=== PATIENT | female | born 1940 | race Caucasian/White ===

== ENCOUNTER 2016-05-14 09:33 | Observation (INO) | payer OTHER, MEDICARE ==
[~2016-05-14] VITALS: Ht 190.5 cm; Wt 96.6 kg
[~2016-05-14 09:33] MED LIST: ACET-1256 PO; ALBU1AER9 INH; CLC100X PO; DICL-201 PO; MAGN250T22 PO; MELA1TAB3 PO; MULT-506 PO; POLY99.02 OP; VITA400C15 PO
[2016-05-14] MEDS ORDERED: HYDROmorphone INJ 1 MG/ML SYR IV STA ×2 (09:50→13:04)
[2016-05-14] MEDS ORDERED: LORAZEPAM 2 MG/ML 1 ML VIAL IV STA (09:50)
[2016-05-14] MEDS ORDERED: SODIUM CHLORIDE 0.9% 1000ML 1,000 ML IV STA ×2 (09:50→12:15)
--- NOTE | 2016-05-14 09:52 | EMERGENCY ROOM VISIT NOTE ---
History Report prepared by Mary: Viktoria Phillip Under the Supervision of: Dr. Prashanth Sharma M.D. First contact with patient: 09:45 Chief Complaint: ABDOMINAL PAIN Stated Complaint: DIARRHEA, VOMITING, ABD. PAIN Nursing Triage Summary: Triage note: pt reports nausea, vomitting, diarrhea, mid abd pain since early this am. History of Present Illness The patient is a 75 year old female who presents to the Emergency Room with complaints of persistent diffuse abdominal pain that began this morning. She currently rates her discomfort as a 10/10 in severity. The patient states that she has chronic abdominal pain that is typically constipation. She states that today she has been experiencing, nausea, vomiting, and diarrhea, with the abdominal pain. The patient states that yesterday she went to bed feeling nauseous. She states that her illness today feels different than her typical GI problems. The patient notes a history of an appendectomy, hysterectomy, and a cholecystectomy. She states that she took Zofran for her symptoms twice, but states it only provided temporary relief. The patient additionally notes chills , but denies any fever, increased leg swelling, or back pain. Source of History: patient Onset: this morning Position: abdomen (diffuse) Symptom Intensity: 10/10 Timing: other (persistent) Associated Symptoms: + chills, + diarrhea, + nausea, + vomiting, No back pain, No fevers Review of Systems Full ROS is limited secondary to the patient actively vomiting and not willing to answer questions. 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 (11) Osteoporosis (12) Pancreatitis (13) Peripheral neuropathy (14) Sciatica (15) UNSPEC CONSTIPATION Surgical Problems: (1) History of appendectomy (2) History of cholecystectomy (3) History of colonoscopy Family History Diabetes mellitus FHx: cancer FHx: heart disease FHx: lung disease Hypertension Kidney disease Social History Smoking Status: Never Smoker Alcohol Use: occasionally Marital Status: Housing Status: lives with family Occupation Status: retired Current/Historical Medications Scheduled Albuterol Hfa (Ventolin Hfa), 2-4 PUFFS INH Q6H Artificial Tear Solution (Artificial Tears), 1 DROPS OP QID Ascorbic Acid (Ascorbic Acid), 1,000 MG PO ON HOLD Astaxanthin (Astaxanthin), 4 MG PO ON HOLD Bisacodyl (Bisacodyl), 2 TAB PO UD Coenzyme Q10 (Ubidecarenone) (Co Q-10), 200 MG PO ON HOLD Docusate Sodium (Docusate Sodium), 1 CAP PO BID Famotidine (Pepcid), 20 MG PO HS L-Methylfolate W/ Algae-Vitami (Metanx), 3 MG PO ON HOLD Magnesium Oxide (Magnesium), 500 MG PO ON HOLD Melatonin-Pyridoxine (Melatonin), 1-3 MG PO HS Milk Thistle (Silybum Marianum (Milk Thistle), 200 MG PO ON HOLD Multivitamin (Multivitamin), 1 TAB PO ON HOLD [place]-3 Fatty Acids ([place] 3), 1,000 MG PO ON HOLD Selenium-Yeast (Selenium), 3 MG PO ON HOLD Soybean Lecithin (Bulk) (Lecithin), 1 GM PO ON HOLD Tocopheryl Acet,Dl-Alpha (Vitamin E/Dl-Alpha), 1 CAP PO DAILY Scheduled PRN Acetaminophen (Tylenol), 1,000 MG PO HS PRN for Pain Alum & Mag Hydrox-Simethicone (Mylanta), 1 DOSE PO UD PRN for Indigestion Aspirin (Aspirin Ec), 1-2 TAB PO Q6 PRN for Pain Leddrxp-Nfiwacddtotib-Hdenizxz (Excedrin Extra Strength), 1-2 TABS PO UD PRN for Pain Diclofenac (Voltaren), 75 MG PO BID PRN for Pain Furosemide (Furosemide), 20 MG PO for swelling of legs Lidocaine Hcl (Mouth-Throat) (Lidocaine Viscous), 2 % MT QID PRN for SORE THROAT Ondansetron Hcl (Zofran), 4 MG PO Q6 PRN for Nausea Dzrrdnbzpsomb-Cedkwvkcbb-Pwgdd (Nyquil Severe Cold/Flu 5-6.25-10-325 mg/15Ml), 1 DOSE PO HS PRN for COLD SYMPTOMS Polyethylene Glycol 3350 (Miralax), 17 GM PO UD PRN for Constipation Prune Juice (Prune Juice ), 4 OZ PO for Constipation Miscellaneous Medications Alpha-Lipoic Acid (Thioctic Ac (Alpha Lipoic Acid), 600 MG PO B-Complex W/Biotin & Folic Aci (Vitamin B50 Complex Tr), 1 TAB PO Cholecalciferol (Vitamin D3), 2,000 UNITS PO Goldenseal (Hydrastis [place] ([place] Seal), Unknown Dose PO Menaquinone-7 (Vitamin K2), 200 MCG PO Simethicone (Simethicone), 1 TAB PO Vitamin A-Beta Carotene (Vitamin A), 8,000 MG PO [zinc and copper], 1 TAB PO Allergies Coded Allergies: Statins (Verified Allergy, Intermediate, MUSCLE WEAKNESS, 05/14/16) Tramadol (Verified Allergy, Intermediate, SOB, CHEST PAIN, 05/14/16) HAS TOLERATED MORPHINE Ibandronic Acid (Verified Allergy, Mild, GERD, 05/14/16) Carbamazepine (Verified Allergy, Unknown, pancreatitis, 05/14/16) Proton Pump Inhibitors (Verified Allergy, Unknown, UNKNOWN, 05/14/16) Morphine (Verified Adverse Reaction, Intermediate, GI SYMPTOMS, 05/14/16) PER PATIENT, DRIP OKAY - "NOT PUSHED" Epinephrine (Verified Adverse Reaction, Unknown, DIZZINESS, 05/14/16) Physical Exam Vital Signs Date Time Temp Pulse Resp B/P Pulse Ox O2 Delivery O2 Flow Rate FiO2 05/14/16 14:15 77 18 101/61 93 Room Air 05/14/16 12:23 78 18 118/67 98 Room Air 05/14/16 10:46 76 18 129/73 97 Room Air 05/14/16 09:42 36.5 75 18 90/60 95 Room Air Physical Exam GENERAL: Patient is moderate to severe distress, nauseous appearing, dry heaving. HEENT: No acute trauma, normocephalic atraumatic, mucous membranes moist, no nasal congestion, no scleral icterus. NECK: No stridor, no adenopathy, no meningismus, trachea is midline. LUNGS: No dyspnea. Clear to auscultation and equal bilaterally. No wheeze, no rhonchi. HEART: Regular rate and rhythm. No murmurs, rubs, gallops appreciated. ABDOMEN: Hyperactive bowel sounds, diffuse tenderness to palpation. Mildly distended abdomen. No masses, no peritonitis. BACK: No midline tenderness, no CVA tenderness EXTREMITIES: Normal motion all extremities, no cyanosis, no edema. NEUROLOGIC: Alert and oriented, no acute motor or sensory deficits, no focal weakness, cranial nerves grossly intact. SKIN: No rash, no jaundice, no diaphoresis. Medical Decision & Procedures ER Provider Diagnostic Interpretation: X ray results and stated below per my interpretation and radiologist interpretation. Other radiology results and stated below per my review and radiologist interpretation: CT SCAN OF THE ABDOMEN AND PELVIS WITH IV CONTRAST CLINICAL HISTORY: Generalized/diffuse abdominal pain. COMPARISON STUDY: Abdominal CT dated 08/29/2012. TECHNIQUE: Following the IV administration of 92 cc of Optiray 320, CT scan of the abdomen and pelvis is performed from the lung bases to the proximal femora. Images are reviewed in the axial, sagittal, and coronal planes. IV contrast was administered without complication. Automated dose control exposure was utilized. CT DOSE: 601.00 mGy.cm FINDINGS: Lung bases: The heart is top normal in size and without pericardial effusion. There are dependent airspace opacities. This is not well assessed due to significant motion artifact. No pleural effusion is identified. There is a small hiatal hernia. Liver: The contrast-enhanced liver is normal in size, contour, and attenuation. There is moderate intrahepatic biliary ductal dilatation, similar to the 2013 examination. The hepatic veins and portal veins are patent. Gallbladder: Surgically absent noting clips in the gallbladder fossa. Spleen: Normal in size and attenuation. Pancreas: Unremarkable. Adrenal glands: Unremarkable. Kidneys: The contrast enhanced kidneys demonstrate mild cortical atrophy and are without hydronephrosis. The kidneys enhance symmetrically. Abdominal vasculature: The abdominal aorta is normal in course and caliber noting moderate atherosclerotic calcification. Bowel: There are numerous fluid-filled loops of small bowel. Liquid stool is also seen in the right colon. No bowel wall thickening or perienteric inflammation is seen. There is no bowel obstruction. The appendix is not visualized. Peritoneum: There is no intraperitoneal free air or abdominal ascites. There is a small fat-containing umbilical hernia. Lymphadenopathy: None. Pelvic viscera: The bladder is normal as visualized. The uterus is surgically absent. No adnexal lesion is seen. Skeletal structures: The skeletal structures are osteopenic. Mild lumbosacral spondylosis is observed. No lytic or blastic lesions are seen. IMPRESSION: 1. There are numerous fluid-filled loops of small bowel. Liquid stool is also noted in the colon. Correlate clinically for evidence of a mild nonspecific enterocolitis. No bowel wall thickening or surrounding inflammatory change is identified. 2. Small hiatal hernia. 3. There are dependent airspace opacities. This could represent atelectasis but is not well assessed due to motion artifact. Correlate clinically for evidence of a mild infectious/inflammatory pneumonitis. 4. Additional findings as above. Electronically signed by: Giuseppe Thomas M.D. 05/14/2016 12:00 PM Dictated Date/Time: 05/14/2016 11:54 AM Laboratory Results 05/14/16 10:20 Red Blood Count 4.47, Mean Corpuscular Volume 90.6, Mean Corpuscular Hemoglobin 32.2, Mean Corpuscular Hemoglobin Concent 35.6, Mean Platelet Volume 10.2, Neutrophils (%) (Auto) 86.8, Lymphocytes (%) (Auto) 7.4, Monocytes (%) (Auto) 3.1, Eosinophils (%) (Auto) 2.3, Basophils (%) (Auto) 0.1, Neutrophils # (Auto) 15.94, Lymphocytes # (Auto) 1.35, Monocytes # (Auto) 0.56, Eosinophils # (Auto) 0.42, Basophils # (Auto) 0.02 05/14/16 10:20 Test 05/14/16 10:20 05/14/16 13:30 White Blood Count 18.35 K/uL (4.8-10.8) Red Blood Count 4.47 M/uL (4.2-5.4) Hemoglobin 14.4 g/dL (12.0-16.0) Hematocrit 40.5 % (37-47) Mean Corpuscular Volume 90.6 fL (80-100) Mean Corpuscular Hemoglobin 32.2 pg (25-34) Mean Corpuscular Hemoglobin Concent 35.6 g/dl (32-36) Platelet Count 248 K/uL (130-400) Mean Platelet Volume 10.2 fL (7.4-10.4) Neutrophils (%) (Auto) 86.8 % Lymphocytes (%) (Auto) 7.4 % Monocytes (%) (Auto) 3.1 % Eosinophils (%) (Auto) 2.3 % Basophils (%) (Auto) 0.1 % Neutrophils # (Auto) 15.94 K/uL (1.4-6.5) Lymphocytes # (Auto) 1.35 K/uL (1.2-3.4) Monocytes # (Auto) 0.56 K/uL (0.11-0.59) Eosinophils # (Auto) 0.42 K/uL (0-0.5) Basophils # (Auto) 0.02 K/uL (0-0.2) RDW Standard Deviation 41.3 fL (36.4-46.3) RDW Coefficient of Variation 12.5 % (11.5-14.5) Immature Granulocyte % (Auto) 0.3 % Immature Granulocyte # (Auto) 0.06 K/uL (0.00-0.02) Anion Gap 11.0 mmol/L (3-11) Est Creatinine Clear Calc Drug Dose 62.3 ml/min Estimated GFR () 64.3 Estimated GFR (Non- 55.5 BUN/Creatinine Ratio 23.3 (10-20) Calcium Level 8.8 mg/dl (8.5-10.1) Total Bilirubin 0.5 mg/dl (0.2-1) Direct Bilirubin 0.1 mg/dl (0-0.2) Aspartate Amino Transf (AST/SGOT) 87 U/L (15-37) Alanine Aminotransferase (ALT/SGPT) 75 U/L (12-78) Alkaline Phosphatase 67 U/L (45-117) Total Protein 7.8 gm/dl (6.4-8.2) Albumin 4.1 gm/dl (3.4-5.0) Lipase 334 U/L (73-393) Urine Color YELLOW Urine Appearance CLEAR (CLEAR) Urine pH 5.0 (4.5-7.5) Urine Specific [place] > 1.045 (1.000-1.030) Urine Protein NEG (NEG) Urine Glucose (UA) NEG (NEG) Urine Ketones NEG (NEG) Urine Occult Blood NEG (NEG) Urine Nitrite NEG (NEG) Urine Bilirubin NEG (NEG) Urine Urobilinogen NEG (NEG) Urine Leukocyte Esterase NEG (NEG) Urine WBC (Auto) 1-5 /hpf (0-5) Urine RBC (Auto) 0-4 /hpf (0-4) Urine Hyaline Casts (Auto) 1-5 /lpf (0-5) Urine Epithelial Cells (Auto) 10-20 /lpf (0-5) Urine Bacteria (Auto) NEG (NEG) Laboratory results as reviewed by me. Medications Administered Medications (Trade) Dose Ordered Sig/Azucena Route Start Time Stop Time Status Last Admin Dose Admin Hydromorphone HCl (Dilaudid Inj) 1 mg NOW STAT IV 05/14/16 09:50 05/14/16 09:52 DC 05/14/16 10:41 1 MG Lorazepam 1 mg 1 mg NOW STAT IV 05/14/16 09:50 05/14/16 09:53 DC 05/14/16 10:43 1 MG Sodium Chloride 1,000 ml @ 999 mls/hr Q1H1M STAT IV 05/14/16 09:50 05/14/16 10:50 DC 05/14/16 10:39 999 MLS/HR Sodium Chloride (Nss 1000ml) 1,000 ml @ 999 mls/hr Q1H1M STAT IV 05/14/16 12:15 05/14/16 13:15 DC 05/14/16 12:26 999 MLS/HR Hydromorphone HCl (Dilaudid Inj) 1 mg NOW STAT IV 05/14/16 13:04 05/14/16 13:07 DC 05/14/16 13:24 1 MG ED Course 0947: The patient was evaluated in room B5. A complete history and physical exam was performed. 0950: Ordered Sodium Chloride 1000 ml @ 999 mls/hr IV, Ativan Inj 1 mg IV, Dilaudid Inj 1 mg IV. 1031: I reevaluated the patient and she states that her symptoms have continued to worsen and she notes that she has not received any of her medications yet. Her IV is in place. 1053: I reevaluated the patient and her blood pressure has decreased after 1 liter of fluid. 1125: I reevaluated the patient and she is sleeping in no distress. She states that she is still having abdominal pain when she is awoken and then she falls back asleep. 1215: I reevaluated the patient and she is feeling better right now, but doesn' t want to go home just yet, and does not want to be evaluated for further treatment. She asked that I come back and evaluated her later. She requested more fluids. Ordered Sodium Chloride 1000 ml @ 999 mls/hr IV. 1304: Ordered Dilaudid Inj 1 mg IV. 1305: I reevaluate the patient and she states that her pain is returning. I discussed all the exam findings and I discussed the treatment plan. She verbalized complete understanding and agreement. She will be evaluated for further treatment. 1312: I discussed the patient's case with Krishan Zhao. He is going to evaluate the patient for further treatment. Medical Decision Differential: Diverticulitis, PUD/Gastritis, UTI, Pyelonephritis, Renal Colic, Bowel Obstruction, Aortic Pathology, Acute Coronary Syndrome, amongst other pathologies entertained. 75 yr old female arrives with complaint of diffuse abdominal pain, vomiting, diarrhea and generalized weakness. She is very much uncomfortable and in quite some distress, to point where she was felt to require CT given exam findings. Furthermore WBC is elevated as well though she does not appear septic and may just be due to dehydration at this time. Given ativan/dilaudid and fluids. CT unremarkable other than enteritis findings. Initially patient was hoping to go home but pain returned and she is just too weak to even get out of bed. She will be brought in for further monitoring/evaluation. Consults Time Called: 1305 Consulting Physician: Krishan Zhao Returned Call: 1312 discussed the patient's case with Krishan Zhao. He is going to evaluate the patient for further treatment. Impression Primary Impression: Intractable abdominal pain Additional Impressions: Leukocytosis Weakness Scribe Attestation The scribe's documentation has been prepared under my direction and personally reviewed by me in its entirety. I confirm that the note above accurately reflects all work, treatment, procedures, and medical decision making performed by me. Departure Information Dispostion Being Evaluated By Hospitalist Referrals Yohannes Morelos M.D. ([facility]) (PCP) Problem Qualifiers Additional Impressions: Leukocytosis Leukocytosis type: unspecified Qualified Codes: D72.829 - Elevated white blood cell count, unspecified
[2016-05-14] MEDS ORDERED: OPTIRAY 320 IV PRN (10:00)
[2016-05-14 10:31] LABS: HEMATOCRIT 40.5 % (37-47); MEAN CELL VOLUME 90.6 fL (80-100); MEAN CORPUSCULAR HEMOGLOBIN 32.2 pg (25-34); MEAN CORPUSCULAR HGB CONC 35.6 g/dl (32-36); MEAN PLATELET VOLUME 10.2 fL (7.4-10.4); PLATELET COUNT 248 K/uL (130-400); RED BLOOD COUNT 4.47 M/uL (4.2-5.4); WHITE BLOOD COUNT 18.35 K/uL (4.8-10.8)
[2016-05-14] MEDS ORDERED: VTME400 PO (10:31)
[2016-05-14] MEDS ORDERED: DOCU100C31 PO (10:31)
[2016-05-14] MEDS ORDERED: ARTISOL12 OP (10:31)
[2016-05-14] MEDS ORDERED: B-CO1TAB21 PO (10:44)
[2016-05-14] MEDS ORDERED: GOLD500C3 PO (10:44)
[2016-05-14] MEDS ORDERED: BISA1TAB15 PO (10:44)
[2016-05-14] MEDS ORDERED: SIME1CAP28 PO (10:44)
[2016-05-14 10:54] LABS: BUN/CREATININE RATIO 23.3 (10-20); CALCIUM 8.8 mg/dl (8.5-10.1); POTASSIUM 4.1 mmol/L (3.5-5.1)
[2016-05-14 11:13] LABS: BASO % 0.1 %; BASO ABS # 0.02 K/uL (0-0.2); COMPLETE YES; EOS % 2.3 %; IG% 0.3 %; LYMPH % 7.4 %; LYMPH ABS # 1.35 K/uL (1.2-3.4); MONO % 3.1 %; NEUT % 86.8 %
--- NOTE | 2016-05-14 12:02 | DIAGNOSTIC IMAGING REPORT ---
CT SCAN OF THE ABDOMEN AND PELVIS WITH IV CONTRAST CLINICAL HISTORY: Generalized/diffuse abdominal pain. COMPARISON STUDY: Abdominal CT dated 08/29/2012. TECHNIQUE: Following the IV administration of 92 cc of Optiray 320, CT scan of the abdomen and pelvis is performed from the lung bases to the proximal femora. Images are reviewed in the axial, sagittal, and coronal planes. IV contrast was administered without complication. Automated dose control exposure was utilized. CT DOSE: 601.00 mGy.cm FINDINGS: Lung bases: The heart is top normal in size and without pericardial effusion. There are dependent airspace opacities. This is not well assessed due to significant motion artifact. No pleural effusion is identified. There is a small hiatal hernia. Liver: The contrast-enhanced liver is normal in size, contour, and attenuation. There is moderate intrahepatic biliary ductal dilatation, similar to the 2013 examination. The hepatic veins and portal veins are patent. Gallbladder: Surgically absent noting clips in the gallbladder fossa. Spleen: Normal in size and attenuation. Pancreas: Unremarkable. Adrenal glands: Unremarkable. Kidneys: The contrast enhanced kidneys demonstrate mild cortical atrophy and are without hydronephrosis. The kidneys enhance symmetrically. Abdominal vasculature: The abdominal aorta is normal in course and caliber noting moderate atherosclerotic calcification. Bowel: There are numerous fluid-filled loops of small bowel. Liquid stool is also seen in the right colon. No bowel wall thickening or perienteric inflammation is seen. There is no bowel obstruction. The appendix is not visualized. Peritoneum: There is no intraperitoneal free air or abdominal ascites. There is a small fat-containing umbilical hernia. Lymphadenopathy: None. Pelvic viscera: The bladder is normal as visualized. The uterus is surgically absent. No adnexal lesion is seen. Skeletal structures: The skeletal structures are osteopenic. Mild lumbosacral spondylosis is observed. No lytic or blastic lesions are seen. IMPRESSION: 1. There are numerous fluid-filled loops of small bowel. Liquid stool is also noted in the colon. Correlate clinically for evidence of a mild nonspecific enterocolitis. No bowel wall thickening or surrounding inflammatory change is identified. 2. Small hiatal hernia. 3. There are dependent airspace opacities. This could represent atelectasis but is not well assessed due to motion artifact. Correlate clinically for evidence of a mild infectious/inflammatory pneumonitis. 4. Additional findings as above. Electronically signed by: iGuseppe Thomas M.D. 05/14/2016 12:00 PM Dictated Date/Time: 05/14/2016 11:54 AM
[2016-05-14 13:47] LABS: URINE APPEARANCE CLEAR (CLEAR); URINE BILIRUBIN NEG (NEG); URINE COLOR YELLOW; URINE NITRITE NEG (NEG); URINE SPECIFIC GRAVITY > 1.045 (1.000-1.030); UROBILINOGEN NEG (NEG); ZZUR CULT IF INDIC CLEAN CATCH NO
[2016-05-14 14:00] LABS: MANUAL MICROSCOPIC REQUIRED? NO; REVIEW REQ? NO
[2016-05-14] MEDS ORDERED: ALBUTEROL HFA 8 GM INHALER INH PRN (14:45)
[2016-05-14] MEDS ORDERED: MoRPHine SULFATE 4 MG/ML 1 ML CARP\\VIAL IV PRN (14:45)
[2016-05-14] MEDS ORDERED: ASPIRIN 325 MG ECTAB PO PRN (14:45)
[2016-05-14] MEDS ORDERED: DICLOFENAC SOD EC 75 MG TABCR PO PRN (14:45)
[2016-05-14] MEDS ORDERED: IV FLUIDS COMPLETED PRN (15:00)
--- NOTE | 2016-05-14 15:04 | History and Physical ---
History & Physical Date & Time of Service: May 14, 2016 at 14:49 Chief Complaint: Diarrhea, Vomiting, Abd. Pain Primary Care Physician: Yohannes Morelos M.D.(GIANCARLO) History of Present Illness Source: patient This is a 75 y/o female with PMHx of gastroparesis, GERD and other problems as outlined below who presents to the ED c/o persistent N/V x 24 hrs. Pt reports that last night she heated up a frozen meal for dinner. Shortly after dinner she became nauseas. She estimates she has had >10 episodes of vomiting since early this morning. She tried taking 2 Zofran which gave her temporary relief. Sxs are assoc with 10/10 diffuse abdominal pain and diarrhea. Patient's ate the same dinner last night and did not get sick. Pt reports a history of GI problems with gastroparesis and reflux. She follows with [facility]. Pt denies fever/chills, diaphoresis, chest pain, palpitations, SOB, hematemesis, hematochezia, bladder issues, LE edema, calf pain, lightheadedness/dizziness. In the ED, pt is hypotensive on arrival. She is afebrile with leukocytosis>18k. CT abd/pelvis + enteritis. Pt received IVF, Dilaudid and Zofran in the ED. She will be admitted for further evaluation and treatment. Past Medical/Surgical History Medical Problems: (1) AORTIC ATHEROSCLEROSIS Status: Chronic (2) ASTHMA, UNSPECIFIED Status: Chronic (3) Gastroesophageal reflux disease Status: Chronic (4) Gastroparesis Status: Chronic (5) Idiopathic peripheral neuropathy Status: Chronic (6) MALIGN NEOPL OVARY Status: Resolved (7) Malignant neoplasm of upper-outer quadrant of female breast Status: Resolved (8) Osteoporosis Status: Chronic (9) Pancreatitis Status: Chronic (10) Peripheral neuropathy Status: Chronic (11) Sciatica Status: Chronic (12) UNSPEC CONSTIPATION Status: Chronic Surgical Problems: (1) History of appendectomy Status: Resolved (2) History of cholecystectomy Status: Resolved (3) History of colonoscopy Status: Resolved Family History Diabetes mellitus FHx: cancer FHx: heart disease FHx: lung disease Hypertension Kidney disease Social History Smoking Status: Never Smoker Alcohol Use: none Drug Use: none Marital Status: Housing status: lives with family Occupational Status: retired Immunizations History of Influenza Vaccine: Yes Influenza Vaccine Date: Dec 18, 2011 History of Tetanus Vaccine?: No History of Pneumococcal: Yes Pneumococcal Date: Feb 16, 2009 History of Hepatitis B Vaccine: Unknown Multi-Drug Resistant Organisms History of MDRO: No Allergies Coded Allergies: Statins (Verified Allergy, Intermediate, MUSCLE WEAKNESS, 05/14/16) Tramadol (Verified Allergy, Intermediate, SOB, CHEST PAIN, 05/14/16) HAS TOLERATED MORPHINE Ibandronic Acid (Verified Allergy, Mild, GERD, 05/14/16) Carbamazepine (Verified Allergy, Unknown, pancreatitis, 05/14/16) Proton Pump Inhibitors (Verified Allergy, Unknown, UNKNOWN, 05/14/16) Morphine (Verified Adverse Reaction, Intermediate, GI SYMPTOMS, 05/14/16) PER PATIENT, DRIP MARTIN - "NOT PUSHED" Epinephrine (Verified Adverse Reaction, Unknown, DIZZINESS, 05/14/16) Home Medications Scheduled Albuterol Hfa (Ventolin Hfa), 2-4 PUFFS INH Q6H Artificial Tear Solution (Artificial Tears), 1 DROPS OP QID Ascorbic Acid (Ascorbic Acid), 1,000 MG PO ON HOLD Astaxanthin (Astaxanthin), 4 MG PO ON HOLD Bisacodyl (Bisacodyl), 2 TAB PO UD Coenzyme Q10 (Ubidecarenone) (Co Q-10), 200 MG PO ON HOLD Docusate Sodium (Docusate Sodium), 1 CAP PO BID Famotidine (Pepcid), 20 MG PO HS L-Methylfolate W/ Algae-Vitami (Metanx), 3 MG PO ON HOLD Levothyroxine Sodium (Synthroid), 1 TAB PO DAILY Magnesium Oxide (Magnesium), 500 MG PO ON HOLD Melatonin-Pyridoxine (Melatonin), 1-3 MG PO HS Milk Thistle (Silybum Marianum (Milk Thistle), 200 MG PO ON HOLD Multivitamin (Multivitamin), 1 TAB PO ON HOLD Hackberry-3 Fatty Acids (Hackberry 3), 1,000 MG PO ON HOLD Selenium-Yeast (Selenium), 3 MG PO ON HOLD Soybean Lecithin (Bulk) (Lecithin), 1 GM PO ON HOLD Tocopheryl Acet,Dl-Alpha (Vitamin E/Dl-Alpha), 1 CAP PO DAILY Scheduled PRN Acetaminophen (Tylenol), 1,000 MG PO HS PRN for Pain Alum & Mag Hydrox-Simethicone (Mylanta), 1 DOSE PO UD PRN for Indigestion Aspirin (Aspirin Ec), 1-2 TAB PO Q6 PRN for Pain Wdldrlf-Otdfcqbcngpnc-Zfgrqjjy (Excedrin Extra Strength), 1-2 TABS PO UD PRN for Pain Furosemide (Furosemide), 20 MG PO for swelling of legs Lidocaine Hcl (Mouth-Throat) (Lidocaine Viscous), 2 % MT QID PRN for SORE THROAT Ondansetron Hcl (Zofran), 4 MG PO Q6 PRN for Nausea Eguxtwenflgqk-Zhdhjaxzib-Zracn (Nyquil Severe Cold/Flu 5-6.25-10-325 mg/15Ml), 1 DOSE PO HS PRN for COLD SYMPTOMS Polyethylene Glycol 3350 (Miralax), 17 GM PO UD PRN for Constipation Prune Juice (Prune Juice ), 4 OZ PO for Constipation Miscellaneous Medications Alpha-Lipoic Acid (Thioctic Ac (Alpha Lipoic Acid), 600 MG PO B-Complex W/Biotin & Folic Aci (Vitamin B50 Complex Tr), 1 TAB PO Cholecalciferol (Vitamin D3), 2,000 UNITS PO Goldenseal (Hydrastis Canadens (Penaloza Seal), Unknown Dose PO Menaquinone-7 (Vitamin K2), 200 MCG PO Simethicone (Simethicone), 1 TAB PO Vitamin A-Beta Carotene (Vitamin A), 8,000 MG PO [zinc and copper], 1 TAB PO Review of Systems Constitutional: + fatigue, + weakness, No chills, No fever, No sweats Eyes: No worsening of vision ENT: No hearing loss Respiratory: No cough, No shortness of breath Cardiovascular: No chest pain, No claudication, No edema Abdomen: + diarrhea, + nausea, + pain, + vomiting, No GI bleeding, No constipation Musculoskeletal: No calf pain, No swelling Genitourinary - Female: No dysuria Neurologic: No weakness Psychiatric: No depression symptoms Endocrine: + fatigue Hematologic / Lymphatic: No abnormal bleeding/bruising Integumentary: No new/changing skin lesions Physical Exam Vital Signs Date Time Temp Pulse Resp B/P Pulse Ox O2 Delivery O2 Flow Rate FiO2 05/14/16 14:15 77 18 101/61 93 Room Air 05/14/16 12:23 78 18 118/67 98 Room Air 05/14/16 10:46 76 18 129/73 97 Room Air 05/14/16 09:42 36.5 75 18 90/60 95 Room Air General Appearance: WD/WN, no apparent distress, + pertinent finding (Pt is laying in bed with at bedside) Head: normocephalic, atraumatic Eyes: normal inspection ENT: hearing grossly normal Neck: supple Respiratory/Chest: chest non-tender, lungs clear, normal breath sounds, no respiratory distress Cardiovascular: regular rate, rhythm, no edema, no murmur Abdomen/GI: normal bowel sounds, soft, + tenderness (mild diffuse) Back: normal inspection Extremities/Musculoskelatal: normal inspection, no calf tenderness, no pedal edema Neurologic/Psych: alert, normal mood/affect, oriented x 3 Skin: warm/dry, + pallor Diagnostics Laboratory Results Results Past 24 Hours Test 05/14/16 10:20 05/14/16 13:30 Range/Units White Blood Count 18.35 4.8-10.8 K/uL Red Blood Count 4.47 4.2-5.4 M/uL Hemoglobin 14.4 12.0-16.0 g/dL Hematocrit 40.5 37-47 % Mean Corpuscular Volume 90.6 80-100 fL Mean Corpuscular Hemoglobin 32.2 25-34 pg Mean Corpuscular Hemoglobin Concent 35.6 32-36 g/dl Platelet Count 248 130-400 K/uL Mean Platelet Volume 10.2 7.4-10.4 fL Neutrophils (%) (Auto) 86.8 % Lymphocytes (%) (Auto) 7.4 % Monocytes (%) (Auto) 3.1 % Eosinophils (%) (Auto) 2.3 % Basophils (%) (Auto) 0.1 % Neutrophils # (Auto) 15.94 1.4-6.5 K/uL Lymphocytes # (Auto) 1.35 1.2-3.4 K/uL Monocytes # (Auto) 0.56 0.11-0.59 K/uL Eosinophils # (Auto) 0.42 0-0.5 K/uL Basophils # (Auto) 0.02 0-0.2 K/uL RDW Standard Deviation 41.3 36.4-46.3 fL RDW Coefficient of Variation 12.5 11.5-14.5 % Immature Granulocyte % (Auto) 0.3 % Immature Granulocyte # (Auto) 0.06 0.00-0.02 K/uL Sodium Level 142 136-145 mmol/L Potassium Level 4.1 3.5-5.1 mmol/L Chloride Level 108 98-107 mmol/L Carbon Dioxide Level 23 21-32 mmol/L Anion Gap 11.0 3-11 mmol/L Blood Urea Nitrogen 23 7-18 mg/dl Creatinine 1.00 0.60-1.20 mg/dl Est Creatinine Clear Calc Drug Dose 62.3 ml/min Estimated GFR () 64.3 Estimated GFR (Non- 55.5 BUN/Creatinine Ratio 23.3 10-20 Random Glucose 160 70-99 mg/dl Calcium Level 8.8 8.5-10.1 mg/dl Total Bilirubin 0.5 0.2-1 mg/dl Direct Bilirubin 0.1 0-0.2 mg/dl Aspartate Amino Transf (AST/SGOT) 87 15-37 U/L Alanine Aminotransferase (ALT/SGPT) 75 12-78 U/L Alkaline Phosphatase 67 45-117 U/L Total Protein 7.8 6.4-8.2 gm/dl Albumin 4.1 3.4-5.0 gm/dl Lipase 334 73-393 U/L Urine Color YELLOW Urine Appearance CLEAR CLEAR Urine pH 5.0 4.5-7.5 Urine Specific [place] > 1.045 1.000-1.030 Urine Protein NEG NEG Urine Glucose (UA) NEG NEG Urine Ketones NEG NEG Urine Occult Blood NEG NEG Urine Nitrite NEG NEG Urine Bilirubin NEG NEG Urine Urobilinogen NEG NEG Urine Leukocyte Esterase NEG NEG Urine WBC (Auto) 1-5 0-5 /hpf Urine RBC (Auto) 0-4 0-4 /hpf Urine Hyaline Casts (Auto) 1-5 0-5 /lpf Urine Epithelial Cells (Auto) 10-20 0-5 /lpf Urine Bacteria (Auto) NEG NEG Diagnostic Radiology CT ABD/PELVIS IMPRESSION: 1. There are numerous fluid-filled loops of small bowel. Liquid stool is also noted in the colon. Correlate clinically for evidence of a mild nonspecific enterocolitis. No bowel wall thickening or surrounding inflammatory change is identified. 2. Small hiatal hernia. 3. There are dependent airspace opacities. This could represent atelectasis but is not well assessed due to motion artifact. Correlate clinically for evidence of a mild infectious/inflammatory pneumonitis. 4. Additional findings as above. Impression Assessment and Plan VIRAL GASTROENTERITIS pt presents with abd pain assoc with N/V and diarrhea -admit observation status to med/surg -pt is afebrile with leukocytosis >18k; hypotensive on arrival-improved with fluids -CT abd/pelvis + enteritis -stool cx and c.diff-pending collection -check Mag -start IVF, Zofran and PRN pain medication -clear liquid diet; advance as tolerated -monitor H/O BREAST CA -20+ years ago; s/p chemo DVT PROPHYLAXIS -subq Lovenox CODE STATUS -FULL CODE per discussion with patient DISPO Observation status until further workup is complete. Pt seen in collaboration with Dr. Payne. Please see his addendum for further details. Thanks! Pt will be followed by Dr. Lockett starting tomorrow AM Agree with above h and p.Briefly 75F presents with abdominal pain several episodes of vomiting and diarrhea.Patient says she has issues with constipation and uses stool softeners. Last night after she ate frozen food she became nauseous and several episodes of vomiting and has diarrhea and severe abdominal souza. Afebrile. Symptoms are slightly better now. Denies chest pain or sob. p/e Ge not in distress cvs s1 and s2 heard no murmurs Rs cta b/l no added sounds Abd mild diffuse discomfort Staff Attorney non focal ext no edema a/p gastroenteritis mostly viral has leukocytosis f/u stool for c diff and stool cx iv fluids antiemetics pain control f/u labs in am VTE Prophylaxis VTE Risk Assessment Done? Y/N: Yes Risk Level: Moderate
[2016-05-14] MEDS ORDERED: LEVO25TA PO (15:47)
[2016-05-14] MEDS ORDERED: ALUMINUM/MAGNESIUM/SIMETH (MAALOX MAX) 30 ML UDC PO PRN (16:15)
[2016-05-14 16:31] LABS: INR 0.9 (0.9-1.1); PARTIAL THROMBOPLASTIN RATIO 0.8
[2016-05-14] MEDS: ONDANSETRON INJ 2 MG/ML 2 ML VIAL IV PRN ×2 (17:50→21:38)
[2016-05-14 18:28] VITALS: BP 141/81; PULSE 85; TEMP 36.8; O2SAT 96; Ht 190.5 cm; Wt 96.6 kg
[2016-05-14] MEDS: SODIUM CHLORIDE 0.9% 1000ML 1,000 ML IV SCH (18:56)
[2016-05-14] MEDS: LACTOBACILLUS ACIDOPHILUS (FLORANEX) TAB PO SCH (18:57)
[2016-05-14] MEDS: ARTIFICIAL TEARS OP SOLN OP SCH ×4 (18:57→21:00)
[2016-05-14] MEDS: FAMOTIDINE 20 MG TAB PO SCH (20:47)
[2016-05-14] MEDS ORDERED: NON-FORMULARY MEDICATION (Melatonin-Pyridoxine (Melatonin) 3 MG) PO SCH (21:00)
[2016-05-14] MEDS: ENOXAPARIN 40 MG/0.4 ML SYR SQ SCH (21:36)
[2016-05-14] MEDS: ACETAMINOPHEN 325 MG TAB PO PRN (21:44)
[2016-05-14] MEDS ORDERED: PROMETHAZINE HCL INJ 12.5 MG in SODIUM CHLORIDE 0.9% 50ML 50 ML IV PRN (22:15)
[2016-05-14] MEDS ORDERED: METRONIDAZOLE / NSS 500 MG in PREMIXED NSS 100 ML IV ONE (22:30)
[2016-05-14] MEDS: LOPERAMIDE HCL 2 MG CAP PO PRN (23:49)
[2016-05-15 00:19] VITALS: BP 107/64; PULSE 73; TEMP 37.2; O2SAT 95
[2016-05-15] MEDS: SODIUM CHLORIDE 0.9% 1000ML 1,000 ML IV SCH (03:53)
[2016-05-15] MEDS: LEVOTHYROXINE 25 MCG TAB PO SCH (06:37)
[2016-05-15 08:00] VITALS: BP 101/62; PULSE 66; TEMP 36.7; O2SAT 95
[2016-05-15 08:01] LABS: HEMATOCRIT 33.8 % (37-47); MEAN CELL VOLUME 91.4 fL (80-100); MEAN CORPUSCULAR HEMOGLOBIN 31.4 pg (25-34); MEAN CORPUSCULAR HGB CONC 34.3 g/dl (32-36); MEAN PLATELET VOLUME 10.1 fL (7.4-10.4); PLATELET COUNT 203 K/uL (130-400); WHITE BLOOD COUNT 6.37 K/uL (4.8-10.8)
[2016-05-15] MEDS: LACTOBACILLUS ACIDOPHILUS (FLORANEX) TAB PO SCH ×3 (08:32→17:26)
[2016-05-15] MEDS: ARTIFICIAL TEARS OP SOLN OP SCH ×8 (08:33→21:34)
[2016-05-15 08:38] LABS: CREATININE 0.87 mg/dl (0.60-1.20); POTASSIUM 3.4 mmol/L (3.5-5.1)
[2016-05-15 08:51] LABS: ISTAT CREATININE 0.8 mg/dl (0.6-1.3); ISTAT HEMOGLOBIN 14.3 g/dl (12.0-16.0); ISTAT IONIZED CALCIUM 1.16 mmol/l (1.12-1.32)
[2016-05-15] MEDS ORDERED: LOPERAMIDE HCL 2 MG CAP PO PRN (09:00)
[2016-05-15] MEDS ORDERED: POTASSIUM CHLORIDE 20 MEQ TABCR PO ONE (09:46)
[2016-05-15] MEDS ORDERED: CIPROFLOXACIN / D5W 400 MG in PREMIXED IN D5W 200 ML IV ONE (09:46)
--- NOTE | 2016-05-15 09:57 | Progress Note ---
Medicine Progress Note Date & Time of Visit: May 15, 2016 at 09:51. Subjective seen sitting up in bed, comfortable still has diarrhea ~12 times since last night- less in amount, non bloody no abdominal pain, nausea, fever/chills still feels weak no other symptoms Objective Last 8 Hrs Date Time Temp Pulse Resp B/P Pulse Ox O2 Delivery O2 Flow Rate FiO2 05/15/16 08:00 36.7 66 20 101/62 95 Room Air Physical Exam: General- oriented x 3, not in distress, speaks in sentences with no effort Head- atraumatic Eyes- anicteric ENT- oropharynx clear Neck- supple, no JVD Lungs- clear to auscultation bilaterally Heart- normal rate, regular rhythm; no murmurs Abdomen- (+) hyperactive bowel sounds, non distended, soft, nontender Extremities- no pretibial edema, no calf tenderness; peripheral pulses intact Neuro- alert, oriented x 3;no gross focal deficits Skin- warm & dry Laboratory Results: Last 24 Hours Test 05/14/16 10:20 05/14/16 10:21 05/14/16 13:30 05/15/16 07:25 White Blood Count 18.35 K/uL 6.37 K/uL Red Blood Count 4.47 M/uL 3.70 M/uL Hemoglobin 14.4 g/dL 11.6 g/dL Hematocrit 40.5 % 33.8 % Mean Corpuscular Volume 90.6 fL 91.4 fL Mean Corpuscular Hemoglobin 32.2 pg 31.4 pg Mean Corpuscular Hemoglobin Concent 35.6 g/dl 34.3 g/dl Platelet Count 248 K/uL 203 K/uL Mean Platelet Volume 10.2 fL 10.1 fL Neutrophils (%) (Auto) 86.8 % Lymphocytes (%) (Auto) 7.4 % Monocytes (%) (Auto) 3.1 % Eosinophils (%) (Auto) 2.3 % Basophils (%) (Auto) 0.1 % Neutrophils # (Auto) 15.94 K/uL Lymphocytes # (Auto) 1.35 K/uL Monocytes # (Auto) 0.56 K/uL Eosinophils # (Auto) 0.42 K/uL Basophils # (Auto) 0.02 K/uL RDW Standard Deviation 41.3 fL 43.0 fL RDW Coefficient of Variation 12.5 % 12.8 % Immature Granulocyte % (Auto) 0.3 % Immature Granulocyte # (Auto) 0.06 K/uL Prothrombin Time 10.0 SECONDS Prothromb Time International Ratio 0.9 Activated Partial Thromboplast Time 21.8 SECONDS Partial Thromboplastin Ratio 0.8 Sodium Level 142 mmol/L 141 mmol/L Potassium Level 4.1 mmol/L 3.4 mmol/L Chloride Level 108 mmol/L 108 mmol/L Carbon Dioxide Level 23 mmol/L 22 mmol/L Anion Gap 11.0 mmol/L 22.0 mmol/L 11.0 mmol/L Blood Urea Nitrogen 23 mg/dl 12 mg/dl Creatinine 1.00 mg/dl 0.87 mg/dl Est Creatinine Clear Calc Drug Dose 62.3 ml/min 77.6 ml/min Estimated GFR () 64.3 76.1 Estimated GFR (Non- 55.5 65.6 BUN/Creatinine Ratio 23.3 14.0 Random Glucose 160 mg/dl 104 mg/dl Calcium Level 8.8 mg/dl 8.0 mg/dl Total Bilirubin 0.5 mg/dl Direct Bilirubin 0.1 mg/dl Aspartate Amino Transf (AST/SGOT) 87 U/L Alanine Aminotransferase (ALT/SGPT) 75 U/L Alkaline Phosphatase 67 U/L Total Protein 7.8 gm/dl Albumin 4.1 gm/dl Lipase 334 U/L Bedside Hemoglobin 14.3 g/dl Bedside Hematocrit 42 % Bedside Sodium 142 mEq/L Bedside Potassium 4.2 mEq/L Bedside Chloride 104 mEq/L Bedside Total CO2 22 mEq/l Bedside Blood Urea Nitrogen 26 mg/dl Bedside Creatinine 0.8 mg/dl Bedside Glucose (other) 174 mg/dl Bedside Ionized Calcium (Yimi) 1.16 mmol/l Urine Color YELLOW Urine Appearance CLEAR Urine pH 5.0 Urine Specific [place] > 1.045 Urine Protein NEG Urine Glucose (UA) NEG Urine Ketones NEG Urine Occult Blood NEG Urine Nitrite NEG Urine Bilirubin NEG Urine Urobilinogen NEG Urine Leukocyte Esterase NEG Urine WBC (Auto) 1-5 /hpf Urine RBC (Auto) 0-4 /hpf Urine Hyaline Casts (Auto) 1-5 /lpf Urine Epithelial Cells (Auto) 10-20 /lpf Urine Bacteria (Auto) NEG Magnesium Level 1.9 mg/dl Date/Time Source Procedure Growth Status 05/14/16 21:40 Stool C.difficile Toxin B Gene (PCR) - Final No C. difficile toxin B gene detected Complete 05/14/16 21:40 Stool Shiga Toxin Test Pending Received 05/14/16 21:40 Stool Stool Culture Pending Received Assessment & Plan 75 year old female with history of gastroparesis, GERD, Asthma presenting with vomiting and diarrhea. ACUTE GASTROENTERITIS - likely food poisoning - C diff test: negative stool cultures: pending - CT abdomen: enterocolitis - add Cipro IV d/c Metro increase IV fluids + K Imodium PRN HYPOKALEMIA - from GI losses - replete and monitor DVT PROPHYLAXIS lovenox Disposition possible d/c home tomorrow Current Inpatient Medications: Current Inpatient Medications Medications (Trade) Dose Ordered Sig/Azucena Route Start Time Stop Time Status Last Admin Dose Admin Ioversol (Optiray 320) 125 ml UD PRN IV 05/14/16 10:00 05/18/16 09:59 Enoxaparin Sodium (Lovenox Inj) 40 mg Q24H SQ 05/14/16 21:00 06/13/16 20:59 05/14/16 21:36 40 MG Acetaminophen (Tylenol Tab) 650 mg Q4H PRN PO 05/14/16 14:45 06/13/16 14:44 05/14/16 21:44 650 MG Ondansetron HCl (Zofran Inj) 4 mg Q6H PRN IV 05/14/16 14:45 06/13/16 14:44 05/14/16 21:38 4 MG Morphine Sulfate (MoRPHine SULFATE INJ) 4 mg Q4H PRN IV 05/14/16 14:45 05/28/16 14:44 05/14/16 17:51 4 MG Albuterol (Ventolin Hfa Inhaler) 2 puffs Q6H PRN INH 05/14/16 14:45 06/13/16 14:44 Aspirin (Ecotrin Tab) 325 mg Q6 PRN PO 05/14/16 14:45 06/13/16 14:44 Famotidine (Pepcid Tab) 20 mg HS PO 05/14/16 21:00 06/13/16 20:59 05/14/16 20:47 20 MG Al Hydrox/Mg Hydrox/Simethicone (Maalox Max Susp) 15 ml Q6H PRN PO 05/14/16 16:15 06/13/16 16:14 Artificial Tears (Artificial Tears) 1 drops QID OP 05/14/16 17:00 06/13/16 16:59 05/15/16 08:33 1 DROPS Miscellaneous (Iv Fluids Completed) 1 ea PRN PRN N/A 05/14/16 15:00 05/14/17 14:59 Levothyroxine Sodium (Synthroid Tab) 25 mcg DAILYBB PO 05/15/16 06:30 06/14/16 06:59 05/15/16 06:37 25 MCG Lactobacillus Acidophilus 4 tab 4 tab TIDM PO 05/14/16 18:00 06/13/16 17:59 05/15/16 08:32 4 TAB Promethazine HCl/ Sodium Chloride (Phenergan Inj/ Nss 50ml) 50.5 ml @ 204 mls/hr Q6H PRN IV 05/14/16 22:15 06/13/16 22:14 Loperamide HCl (Imodium Cap) 2 mg UD PRN PO 05/14/16 23:00 06/13/16 22:59 05/14/16 23:49 2 MG Loperamide HCl 2 mg 2 mg UD PRN PO 05/15/16 09:00 06/14/16 08:59 Potassium Chloride/Sodium Chloride 1,000 ml @ 100 mls/hr Q10H IV 05/15/16 09:00 06/14/16 08:59 Ciprofloxacin/ Dextrose 400 mg/ Prmx 200 ml @ 100 mls/hr Q12 IV 05/15/16 21:00 05/25/16 20:59 UNV Ciprofloxacin/ Dextrose/Prmx (Cipro / D5w/ Premixed D5W) 200 ml @ 100 mls/hr 0946 ONCE IV 05/15/16 09:46 05/15/16 11:45 UNV Potassium Chloride (Klor-Con Tab) 40 meq 0946 ONCE PO 05/15/16 09:46 05/15/16 09:47 UNV
[2016-05-15] MEDS ORDERED: SIMETHICONE 80 MG CHEW PO ONE (10:00)
[2016-05-15] MEDS: NSS + 20MEQ KCL 1000ML 1,000 ML IV SCH ×2 (10:27→18:59)
[2016-05-15] MEDS: LOPERAMIDE HCL 2 MG CAP PO PRN ×2 (10:28→12:12)
[2016-05-15] MEDS: ACETAMINOPHEN 325 MG TAB PO PRN (12:10)
[2016-05-15 15:39] VITALS: BP 118/72; PULSE 67; TEMP 36.6; O2SAT 96
[2016-05-15 16:26] LABS: POTASSIUM 3.8 mmol/L (3.5-5.1)
[2016-05-15 16:33] LABS: MAGNESIUM 1.9 mg/dl (1.8-2.4)
[2016-05-15] MEDS: SIMETHICONE 80 MG CHEW PO PRN (17:23)
[2016-05-15] MEDS: CIPROFLOXACIN / D5W 400 MG in PREMIXED IN D5W 200 ML IV SCH (21:35)
[2016-05-15] MEDS: FAMOTIDINE 20 MG TAB PO SCH (21:35)
[2016-05-15] MEDS: ENOXAPARIN 40 MG/0.4 ML SYR SQ SCH (21:36)
[2016-05-16 00:20] VITALS: BP 125/79; PULSE 67; TEMP 37.1; O2SAT 97
[2016-05-16] MEDS: SIMETHICONE 80 MG CHEW PO PRN (01:35)
[2016-05-16] MEDS: ACETAMINOPHEN 325 MG TAB PO PRN (01:38)
[2016-05-16] MEDS: LEVOTHYROXINE 25 MCG TAB PO SCH (05:51)
[2016-05-16] MEDS: NSS + 20MEQ KCL 1000ML 1,000 ML IV SCH (05:51)
[2016-05-16 07:22] VITALS: BP 123/84; PULSE 78; TEMP 37.8; O2SAT 95
[2016-05-16 07:40] VITALS: BP 119/74; PULSE 67; TEMP 36.7; O2SAT 97
[2016-05-16 09:01] LABS: BASO % 0.7 %; BASO ABS # 0.03 K/uL (0-0.2); COMPLETE YES; EOS % 8.8 %; HEMATOCRIT 33.8 % (37-47); IG% 0.2 %; LYMPH % 41.4 %; LYMPH ABS # 1.89 K/uL (1.2-3.4); MEAN CELL VOLUME 91.1 fL (80-100); MEAN PLATELET VOLUME 9.6 fL (7.4-10.4); MONO % 11.4 %; NEUT % 37.5 %; PLATELET COUNT 196 K/uL (130-400); RED BLOOD COUNT 3.71 M/uL (4.2-5.4); WHITE BLOOD COUNT 4.57 K/uL (4.8-10.8)
[2016-05-16] MEDS: LACTOBACILLUS ACIDOPHILUS (FLORANEX) TAB PO SCH (09:17)
[2016-05-16] MEDS: ARTIFICIAL TEARS OP SOLN OP SCH ×2 (09:17)
[2016-05-16] MEDS: CIPROFLOXACIN / D5W 400 MG in PREMIXED IN D5W 200 ML IV SCH (09:18)
[2016-05-16 09:29] LABS: BUN/CREATININE RATIO 11.8 (10-20); CALCIUM 8.2 mg/dl (8.5-10.1); CREATININE 0.68 mg/dl (0.60-1.20)
--- NOTE | 2016-05-16 10:53 | Progress Note ---
Medicine Progress Note Date & Time of Visit: May 16, 2016 at 10:46. Subjective seen sitting up in bed, comfortable had 2 formed stools this AM no abdominal pain ,nausea, tolerating diet well no fever/chills denies other symptoms states she is much better overall denies other symptoms states she is ready and would like to be discharged today Objective Last 8 Hrs Date Time Temp Pulse Resp B/P Pulse Ox O2 Delivery O2 Flow Rate FiO2 05/16/16 07:40 36.7 67 18 119/74 97 Room Air 05/16/16 07:22 Physical Exam: General- oriented x 3, not in distress, speaks in sentences with no effort Eyes- anicteric Neck- no JVD Lungs- clear to auscultation bilaterally, no rales Heart- normal rate, regular rhythm; no murmurs Abdomen- normal bowel sounds, non distended, soft, nontender Extremities- no pretibial edema, no calf tenderness Neuro- alert, oriented x 3;no gross focal deficits Skin- warm & dry Laboratory Results: Last 24 Hours Test 05/15/16 15:50 05/16/16 08:52 Potassium Level 3.8 mmol/L 4.0 mmol/L Magnesium Level 1.9 mg/dl 2.0 mg/dl White Blood Count 4.57 K/uL Red Blood Count 3.71 M/uL Hemoglobin 11.5 g/dL Hematocrit 33.8 % Mean Corpuscular Volume 91.1 fL Mean Corpuscular Hemoglobin 31.0 pg Mean Corpuscular Hemoglobin Concent 34.0 g/dl Platelet Count 196 K/uL Mean Platelet Volume 9.6 fL Neutrophils (%) (Auto) 37.5 % Lymphocytes (%) (Auto) 41.4 % Monocytes (%) (Auto) 11.4 % Eosinophils (%) (Auto) 8.8 % Basophils (%) (Auto) 0.7 % Neutrophils # (Auto) 1.72 K/uL Lymphocytes # (Auto) 1.89 K/uL Monocytes # (Auto) 0.52 K/uL Eosinophils # (Auto) 0.40 K/uL Basophils # (Auto) 0.03 K/uL RDW Standard Deviation 43.3 fL RDW Coefficient of Variation 12.9 % Immature Granulocyte % (Auto) 0.2 % Immature Granulocyte # (Auto) 0.01 K/uL Sodium Level 145 mmol/L Chloride Level 112 mmol/L Carbon Dioxide Level 22 mmol/L Anion Gap 11.0 mmol/L Blood Urea Nitrogen 8 mg/dl Creatinine 0.68 mg/dl Est Creatinine Clear Calc Drug Dose 99.3 ml/min Estimated GFR () 99.9 Estimated GFR (Non- 86.2 BUN/Creatinine Ratio 11.8 Random Glucose 116 mg/dl Calcium Level 8.2 mg/dl Assessment & Plan 75 year old female with history of gastroparesis, GERD, Asthma presenting with vomiting and diarrhea. ACUTE GASTROENTERITIS - likely Food Borne Illness vs. Viral Gastroenteritis - had dinner at around 9pm (frozen eggplant parmigiana) at 3am, woken up by nausea, vomiting, diarrhea - C diff test: negative stool culture: negative - CT abdomen: IMPRESSION: 1. There are numerous fluid-filled loops of small bowel. Liquid stool is also noted in the colon. Correlate clinically for evidence of a mild nonspecific enterocolitis. No bowel wall thickening or surrounding inflammatory change is identified. 2. Small hiatal hernia. 3. There are dependent airspace opacities. This could represent atelectasis but is not well assessed due to motion artifact. Correlate clinically for evidence of a mild infectious/inflammatory pneumonitis. - given Cipro IV and Metro IV x 1 day given IV fluids Imodium PRN - symptoms improved - advised small light meals, low fiber, low fat, no dairy diet until symptoms further improve plenty of fluids ff up with PCP next week HYPOKALEMIA - from GI losses - given PO and IV potassium - K improved from 3.4 to 4.0 DVT PROPHYLAXIS lovenox given Disposition d/c home today Current Inpatient Medications: Current Inpatient Medications Medications (Trade) Dose Ordered Sig/Azucena Route Start Time Stop Time Status Last Admin Dose Admin Ioversol (Optiray 320) 125 ml UD PRN IV 05/14/16 10:00 05/18/16 09:59 Enoxaparin Sodium (Lovenox Inj) 40 mg Q24H SQ 05/14/16 21:00 06/13/16 20:59 05/15/16 21:36 40 MG Acetaminophen (Tylenol Tab) 650 mg Q4H PRN PO 05/14/16 14:45 06/13/16 14:44 05/16/16 01:38 650 MG Ondansetron HCl (Zofran Inj) 4 mg Q6H PRN IV 05/14/16 14:45 06/13/16 14:44 05/14/16 21:38 4 MG Morphine Sulfate (MoRPHine SULFATE INJ) 4 mg Q4H PRN IV 05/14/16 14:45 05/28/16 14:44 05/14/16 17:51 4 MG Albuterol (Ventolin Hfa Inhaler) 2 puffs Q6H PRN INH 05/14/16 14:45 06/13/16 14:44 Aspirin (Ecotrin Tab) 325 mg Q6 PRN PO 05/14/16 14:45 06/13/16 14:44 Famotidine (Pepcid Tab) 20 mg HS PO 05/14/16 21:00 06/13/16 20:59 05/15/16 21:35 20 MG Al Hydrox/Mg Hydrox/Simethicone (Maalox Max Susp) 15 ml Q6H PRN PO 05/14/16 16:15 06/13/16 16:14 05/16/16 01:35 15 ML Artificial Tears (Artificial Tears) 1 drops QID OP 05/14/16 17:00 06/13/16 16:59 05/16/16 09:17 1 DROPS Miscellaneous (Iv Fluids Completed) 1 ea PRN PRN N/A 05/14/16 15:00 05/14/17 14:59 Levothyroxine Sodium (Synthroid Tab) 25 mcg DAILYBB PO 05/15/16 06:30 06/14/16 06:59 05/16/16 05:51 25 MCG Lactobacillus Acidophilus 4 tab 4 tab TIDM PO 05/14/16 18:00 06/13/16 17:59 05/16/16 09:17 4 TAB Promethazine HCl/ Sodium Chloride (Phenergan Inj/ Nss 50ml) 50.5 ml @ 204 mls/hr Q6H PRN IV 05/14/16 22:15 06/13/16 22:14 Loperamide HCl 2 mg 2 mg UD PRN PO 05/15/16 09:00 06/14/16 08:59 05/15/16 17:24 2 MG Potassium Chloride/Sodium Chloride 1,000 ml @ 100 mls/hr Q10H IV 05/15/16 09:00 06/14/16 08:59 05/16/16 05:51 100 MLS/HR Ciprofloxacin/ Dextrose/Prmx (Cipro / D5w/ Premixed D5W) 200 ml @ 100 mls/hr Q12 IV 05/15/16 21:00 05/25/16 20:59 05/16/16 09:18 100 MLS/HR Simethicone (Mylicon Chew Tab) 80 mg Q6H PRN PO 05/15/16 10:00 06/14/16 09:59 05/16/16 01:35 80 MG
[2016-05-16] MEDS ORDERED: IMD2X PO (10:56)
--- NOTE | 2016-05-16 11:07 | Discharge Summary ---
Discharge Summary Admission Date: May 14, 2016 at 18:38 Discharge Date: May 16, 2016 Discharge Disposition: Home Principal Diagnosis: ACUTE GASTROENTERITIS - likely Food Borne Illness vs. Viral Gastroenteritis Secondary Diagnoses/Problems: Please refer to hospital course below. Procedures: CT SCAN OF THE ABDOMEN AND PELVIS WITH IV CONTRAST CLINICAL HISTORY: Generalized/diffuse abdominal pain. COMPARISON STUDY: Abdominal CT dated 08/29/2012. TECHNIQUE: Following the IV administration of 92 cc of Optiray 320, CT scan of the abdomen and pelvis is performed from the lung bases to the proximal femora. Images are reviewed in the axial, sagittal, and coronal planes. IV contrast was administered without complication. Automated dose control exposure was utilized. CT DOSE: 601.00 mGy.cm FINDINGS: Lung bases: The heart is top normal in size and without pericardial effusion. There are dependent airspace opacities. This is not well assessed due to significant motion artifact. No pleural effusion is identified. There is a small hiatal hernia. Liver: The contrast-enhanced liver is normal in size, contour, and attenuation. There is moderate intrahepatic biliary ductal dilatation, similar to the 2013 examination. The hepatic veins and portal veins are patent. Gallbladder: Surgically absent noting clips in the gallbladder fossa. Spleen: Normal in size and attenuation. Pancreas: Unremarkable. Adrenal glands: Unremarkable. Kidneys: The contrast enhanced kidneys demonstrate mild cortical atrophy and are without hydronephrosis. The kidneys enhance symmetrically. Abdominal vasculature: The abdominal aorta is normal in course and caliber noting moderate atherosclerotic calcification. Bowel: There are numerous fluid-filled loops of small bowel. Liquid stool is also seen in the right colon. No bowel wall thickening or perienteric inflammation is seen. There is no bowel obstruction. The appendix is not visualized. Peritoneum: There is no intraperitoneal free air or abdominal ascites. There is a small fat-containing umbilical hernia. Lymphadenopathy: None. Pelvic viscera: The bladder is normal as visualized. The uterus is surgically absent. No adnexal lesion is seen. Skeletal structures: The skeletal structures are osteopenic. Mild lumbosacral spondylosis is observed. No lytic or blastic lesions are seen. IMPRESSION: 1. There are numerous fluid-filled loops of small bowel. Liquid stool is also noted in the colon. Correlate clinically for evidence of a mild nonspecific enterocolitis. No bowel wall thickening or surrounding inflammatory change is identified. 2. Small hiatal hernia. 3. There are dependent airspace opacities. This could represent atelectasis but is not well assessed due to motion artifact. Correlate clinically for evidence of a mild infectious/inflammatory pneumonitis. 4. Additional findings as above. Electronically signed by: Giuseppe Thomas M.D. 05/14/2016 12:00 PM Medication Reconciliation New Medications: Loperamide Hcl (Imodium) 2 Mg Cap 2 MG PO UD PRN for Diarrhea for 5 Days, CAP take 1 cap after each loose bowel movement as needed (may use maximum of 8 caps in one day) Continued Medications: Acetaminophen (Tylenol) 500 Mg Tab 1000 MG PO HS PRN for Pain, TAB Albuterol Hfa (Ventolin Hfa) 200 Puffs/26241 Mcg Aers 2-4 PUFFS INH Q6H, #1 INHALER Alpha-Lipoic Acid (Thioctic Ac (Alpha Lipoic Acid) 600 Mg Cap 600 MG PO Alum & Mag Hydrox-Simethicone (Mylanta) 1 Ny Ny 1 DOSE PO UD PRN for Indigestion OTC DIRECTIONS Artificial Tear Solution (Artificial Tears) 1 Khushi Khushi 1 DROPS OP QID, #15 ML 5 Refills Ascorbic Acid (Ascorbic Acid) 1,000 Mg Tab 1000 MG PO ON HOLD Aspirin (Aspirin Ec) 325 Mg Tab 1-2 TAB PO Q6 PRN for Pain Vvtuqzu-Ehomplanpmypy-Jlqbsdyz (Excedrin Extra Strength) 1 Tab Tab 1-2 TABS PO UD PRN for Pain Astaxanthin (Astaxanthin) 4 Mg Cap 4 MG PO ON HOLD B-Complex W/Biotin & Folic Aci (Vitamin B50 Complex Tr) 1 Tab Tab 1 TAB PO Cholecalciferol (Vitamin D3) 2,000 Unit Cap 2000 UNITS PO Coenzyme Q10 (Ubidecarenone) (Co Q-10) 200 Mg Cap 200 MG PO ON HOLD Famotidine (Pepcid) 20 Mg Tab 20 MG PO HS Furosemide (Furosemide) 20 Mg Tab 20 MG PO PRN for swelling of legs Goldenseal (Hydrastis Canadens (Penaloza Seal) 500 Mg Cap Unknown Dose PO L-Methylfolate W/ Algae-Vitami (Metanx) 1 Cap Cap 3 MG PO ON HOLD Levothyroxine Sodium (Synthroid) 25 Mcg Tab 1 TAB PO DAILY for 90 Days, #90 TAB 1 Refill Lidocaine Hcl (Mouth-Throat) (Lidocaine Viscous) 2 % Khushi 2 % MT QID PRN for SORE THROAT, BTL Magnesium Oxide (Magnesium) 250 Mg Tab 500 MG PO ON HOLD Melatonin-Pyridoxine (Melatonin) 1 Tab Tab 1-3 MG PO HS Menaquinone-7 (Vitamin K2) 100 Mcg Cap 200 MCG PO Milk Thistle (Silybum Marianum (Milk Thistle) 200 Mg Cap 200 MG PO ON HOLD Multivitamin (Multivitamin) Tab 1 TAB PO ON HOLD [place]-3 Fatty Acids ([place] 3) 1 Cap Cap 1000 MG PO ON HOLD Ondansetron Hcl (Zofran) 4 Mg Tab 4 MG PO Q6 PRN for Nausea, TAB Etulpcqkruuoe-Ksjjmqeaek-Aqwba (Nyquil Severe Cold/Flu 5-6.25-10-325 mg/15Ml) 1 Liq Liq 1 DOSE PO HS PRN for COLD SYMPTOMS Polyethylene Glycol 3350 (Miralax) 1 Pow Pow 17 GM PO UD PRN for Constipation Prune Juice (Prune Juice ) Liqd 4 OZ PO PRN for Constipation Selenium-Yeast (Selenium) 1 Tab Tab 3 MG PO ON HOLD Simethicone (Simethicone) 125 Mg Cap 1 TAB PO Soybean Lecithin (Bulk) (Lecithin) 1 Gra Gra 1 GM PO ON HOLD Tocopheryl Acet,Dl-Alpha (Vitamin E/Dl-Alpha) 400 Unit Cap 1 CAP PO DAILY Vitamin A-Beta Carotene (Vitamin A) 1 Tab Tab 8000 MG PO [zinc and copper] () 1 TAB PO Discontinued Medications: Bisacodyl (Bisacodyl) 5 Mg Tab 2 TAB PO UD, #2 TAB Docusate Sodium (Docusate Sodium) 100 Mg Cap 1 CAP PO BID for 7 Days, #14 CAP Admission Information HPI (per Admitting provider): This is a 75 y/o female with PMHx of gastroparesis, GERD and other problems as outlined below who presents to the ED c/o persistent N/V x 24 hrs. Pt reports that last night she heated up a frozen meal for dinner. Shortly after dinner she became nauseas. She estimates she has had >10 episodes of vomiting since early this morning. She tried taking 2 Zofran which gave her temporary relief. Sxs are assoc with 10/10 diffuse abdominal pain and diarrhea. Patient's ate the same dinner last night and did not get sick. Pt reports a history of GI problems with gastroparesis and reflux. She follows with [facility]. Pt denies fever/chills, diaphoresis, chest pain, palpitations, SOB, hematemesis, hematochezia, bladder issues, LE edema, calf pain, lightheadedness/dizziness. In the ED, pt is hypotensive on arrival. She is afebrile with leukocytosis>18k. CT abd/pelvis + enteritis. Pt received IVF, Dilaudid and Zofran in the ED. She will be admitted for further evaluation and treatment. Physical Exam (per Admitting): General Appearance: WD/WN, no apparent distress, + pertinent finding (Pt is laying in bed with at bedside) Head: normocephalic, atraumatic Eyes: normal inspection ENT: hearing grossly normal Neck: supple Respiratory/Chest: chest non-tender, lungs clear, normal breath sounds, no respiratory distress Cardiovascular: regular rate, rhythm, no edema, no murmur Abdomen/GI: normal bowel sounds, soft, + tenderness (mild diffuse) Back: normal inspection Extremities/Musculoskelatal: normal inspection, no calf tenderness, no pedal edema Neurologic/Psych: alert, normal mood/affect, oriented x 3 Skin: warm/dry, + pallor Hospital Course 75 year old female with history of gastroparesis, GERD, Asthma presenting with vomiting and diarrhea. ACUTE GASTROENTERITIS - likely Food Borne Illness vs. Viral Gastroenteritis - had dinner at around 9pm (frozen eggplant parmigiana) at 3am, woken up by nausea, vomiting, diarrhea - C diff test: negative stool culture: negative - CT abdomen: IMPRESSION: 1. There are numerous fluid-filled loops of small bowel. Liquid stool is also noted in the colon. Correlate clinically for evidence of a mild nonspecific enterocolitis. No bowel wall thickening or surrounding inflammatory change is identified. 2. Small hiatal hernia. 3. There are dependent airspace opacities. This could represent atelectasis but is not well assessed due to motion artifact. Correlate clinically for evidence of a mild infectious/inflammatory pneumonitis. - given Cipro IV and Metro IV x 1 day given IV fluids Imodium PRN - symptoms improved - advised small light meals, low fiber, low fat, no dairy diet until symptoms further improve plenty of fluids ff up with PCP next week HYPOKALEMIA - from GI losses - given PO and IV potassium - K improved from 3.4 to 4.0 DVT PROPHYLAXIS lovenox given Disposition d/c home today Total time spent on discharge = 30 minutes This includes examination of the patient, discharge planning, medication reconciliation, and communication with other providers. Discharge Instructions Discharge Instructions Admission Reason for Admission: Diarrhea, Vomiting, Abd. Pain Discharge Discharge Diagnosis / Problem: ACUTE GASTROENTERITIS Discharge Goals Goal(s): Diagnostic testing, Therapeutic intervention Activity Recommendations Activity Limitations: as noted below (no heavy exertion until re-evaluated by your Primary Care Physician) . Instructions / Follow-Up Instructions / Follow-Up SMALL FREQUENT MEALS, LOW FIBER, LOW FAT DIET AND AVOID DAIRY UNTIL SYMPTOMS FURTHER IMPROVE. DRINK PLENTY OF FLUIDS. CALL PRIMARY CARE PHYSICIAN OR RETURN TO ER IMMEDIATELY IF WITH RECURRENCE OF SYMPTOMS. Current Hospital Diet Patient's current hospital diet: Clear Liquid Diet Discharge Diet Recommended Diet: Low Fiber Diet, Low Fat Diet, Low Lactose Diet Pending Studies Studies pending at discharge: no Medical Emergencies . Who to Call and When: Medical Emergencies: If at any time you feel your situation is an emergency, please call 911 immediately. . Non-Emergent Contact Non-Emergency issues call your: Primary Care Provider Call Non-Emergent contact if: you have a fever, your pain is not controlled . 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 "Provider Documentation" section prepared by Elkin Lockett. VTE Core Measure Inpt VTE Proph given/why not?: Enoxaparin (Lovenox)SQ
[2016-05-16 11:25] VITALS: BP 119/74; PULSE 67; TEMP 36.7; O2SAT 97
[2016-05-25] MEDS ORDERED: PRED1SUS3 OPL (06:41)
[2016-05-25] MEDS ORDERED: CIPROFLOXACIN (06:41)
[2016-05-25] MEDS ORDERED: NEPA0.6D (06:41)
[2016-09-14] MEDS ORDERED: POLY335025 PO (03:13)
[2016-09-14] MEDS ORDERED: FAMO20TA11 PO (03:18)
[2016-09-14] MEDS ORDERED: ALUM-30 PO (03:18)
[2016-09-14] MEDS ORDERED: MENA1CAP PO (09:31)
[2016-09-14] MEDS ORDERED: COEN1CAP37 PO (09:31)
[2016-09-14] MEDS ORDERED: ASTA1CAP PO (09:31)
[2016-09-14] MEDS ORDERED: ALPH600C2 PO (09:31)
[2016-09-14] MEDS ORDERED: L-ME1CAP3 PO (09:31)
[2016-09-14] MEDS ORDERED: OMEG12006 PO (09:31)
[2016-09-14] MEDS ORDERED: SELE1TAB5 PO (09:31)
[2016-09-14] MEDS ORDERED: LSX20 PO (09:31)
[2016-09-14] MEDS ORDERED: VITATAB19 PO (09:31)
[2016-09-14] MEDS ORDERED: ASCO100061 PO (09:31)
[2016-09-14] MEDS ORDERED: PRNJ PO (09:31)
[2016-09-14] MEDS ORDERED: MILK200C PO (09:31)
[2016-09-14] MEDS ORDERED: SOYBGRA9 PO (09:31)
[2016-09-14] MEDS ORDERED: VNTHFA/IN INH (10:31)
[2016-09-14] MEDS ORDERED: ZINC PO (10:44)
[2016-09-14] MEDS ORDERED: COPPER PO (10:44)
[2016-09-14] MEDS ORDERED: PHEN-905 PO (10:48)
[2016-09-14] MEDS ORDERED: ONDA4TAB46 PO (15:16)
[2016-09-14] MEDS ORDERED: ASPI325T39 PO (15:16)
[2016-09-14] MEDS ORDERED: CHOL2000 PO (21:06)
[2016-09-14] MEDS ORDERED: LIDO2SOL19 MT (21:48)
[2016-09-14] MEDS ORDERED: ASPI-391 PO (21:48)
== END 2016-05-16 11:50 | disposition home or self-care (01) ==
LOC: ENRESERVDT → ENRESERVTM → C.EDB 09:34 → C.MS4W 18:38
PROVIDERS: ADMIT Internal Medicine; ATTEND Internal Medicine
DX: K52.9 Noninfective gastroenteritis and colitis, unspecified (principal); E87.6 Hypokalemia; J45.909 Unspecified asthma, uncomplicated; D72.829 Elevated white blood cell count, unspecified; K21.9 Gastro-esophageal reflux disease without esophagitis; M81.0 Age-related osteoporosis without current pathological fracture; G60.9 Hereditary and idiopathic neuropathy, unspecified; Z79.899 Other long term (current) drug therapy; K31.84 Gastroparesis; Z85.43 Personal history of malignant neoplasm of ovary; Z85.3 Personal history of malignant neoplasm of breast

== ENCOUNTER → 2016-05-25 | Day surgery (SDC) | payer OTHER, MEDICARE ==
[2016-04-15 13:37] VITALS: Ht 190.5 cm; Wt 96.8 kg
[~2016-05-25] VITALS: Ht 190.5 cm; Wt 96.8 kg
[~2016-05-25] MED LIST changes: +500ML BSS 0.3ML EPI 1:1000PF IRRIG ONE; +ACETAMINOPHEN 325 MG TAB PO PRN; -ALBU1AER9 INH; +ALPH600C2 PO; +ALUM-30 PO; +AMVISC PLUS 0.8ML SYRINGE INT OCU ONE; +ARTISOL12 OP; +ASCO100061 PO; +ASPI-391 PO; +ASPI325T39 PO; +ASTA1CAP PO; +ATROPINE SULFATE 0.1 MG/ML 5ML SYR IV PRN; +B-CO1TAB21 PO; +BRIMONIDINE TART 0.2% OP SOLN PER DROP CHARGE ONE; +BSS FLUSH ONE; +CHOL2000 PO; +CIPROFLOXACIN; -CLC100X PO; +COEN1CAP37 PO; +COPPER PO; +CYCLOPENTOLATE HCL 1% OP SOLN PER DROP CHARGE OPL SCH; -DICL-201 PO; +ENDOCOAT 0.85ML SYRINGE INT OCU ONE; +EpHEDrine SULFATE INJ 50 MG/ML AMP IV PRN; +EpINEphrine INJ 1MG/ML AMP 1 MG/ML AMP ONE; +FAMO20TA11 PO; +FENTANYL CITRATE INJ 50 MCG/1 ML 2 ML VIAL ONE; +GOLD500C3 PO; +IMD2X PO; +KETOROLAC 0.5% OP SOLN PER DROP CHARGE OPL SCH; +L-ME1CAP3 PO; +LACTATED RINGER'S 1000ML 500 ML IV SCH; +LEVO25TA PO; +LIDO2SOL19 MT; +LIDOCAINE 4% OP SOLN DROP CHARGE ONE; +LIDOCAINE 4% OP SOLN DROP CHARGE OPL SCH; +LIDOCAINE HCL 1% MPF 2 ML VIAL ONE; +LSX20 PO; +MENA1CAP PO; +MIDAZOLAM HCL 1 MG/ML 2ML VIAL ONE; +MILK200C PO; +MOXIFLOXACIN OPH SOLN PER DROP CHARGE ONE; +MOXIFLOXACIN OPH SOLN PER DROP CHARGE OPL SCH; +NEPA0.6D; +OMEG12006 PO; +ONDA4TAB46 PO; +PHEN-905 PO; +PHENYLEPHRINE HCL 2.5% OP SOLN PER DROP CHARGE OPL SCH; +POLY335025 PO; -POLY99.02 OP; +POVIDONE-IODINE OP SOLN 30 ML BTL ONE; +PRED1SUS3 OPL; +PRNJ PO; +PROPARACAINE 0.5% OP SOLN PER DROP CHARGE OPL SCH; +SELE1TAB5 PO; +SIME1CAP28 PO; +SOYBGRA9 PO; +TOBRAMYCIN/DEXAMETHASONE OPH OINT PER APPLN CHARGE ONE; +TROPICAMIDE 1% OP SOLN PER DROP CHARGE OPL SCH; -VITA400C15 PO; +VITATAB19 PO; +VNTHFA/IN INH; +VTME400 PO; +ZINC PO
[2016-05-25] MEDS: PHENYLEPHRINE HCL 2.5% OP SOLN PER DROP CHARGE OPL SCH ×2 (06:52→06:57)
[2016-05-25] MEDS: TROPICAMIDE 1% OP SOLN PER DROP CHARGE OPL SCH ×2 (06:53→06:58)
[2016-05-25] MEDS: CYCLOPENTOLATE HCL 1% OP SOLN PER DROP CHARGE OPL SCH ×2 (06:54→06:59)
[2016-05-25] MEDS: KETOROLAC 0.5% OP SOLN PER DROP CHARGE OPL SCH ×2 (06:55→07:00)
[2016-05-25] MEDS: MOXIFLOXACIN OPH SOLN PER DROP CHARGE OPL SCH ×2 (06:56→07:06)
--- NOTE | 2016-05-25 06:56 | History & Physical Bridge - SC ---
H&P Re-Evaluation Bridge Note: I have examined the patient, reviewed the History & Physical and in the interval since the performance of the History & Physical I have noted the following changes of clinical significance: No changes noted
[2016-05-25] MEDS: BRIMONIDINE TART 0.2% OP SOLN PER DROP CHARGE ONE ×2 (07:53→07:54)
[2016-05-25] MEDS: TOBRAMYCIN/DEXAMETHASONE OPH OINT PER APPLN CHARGE ONE (07:54)
[2016-05-25] MEDS: LIDOCAINE 4% OP SOLN DROP CHARGE ONE (07:54)
[2016-05-25] MEDS: MOXIFLOXACIN OPH SOLN PER DROP CHARGE ONE (07:54)
--- NOTE | 2016-05-25 07:59 | Discharge Instructions-SurgCtr ---
Discharge Instructions Visit Reason for Visit: Left Cataract Discharge Discharge Diagnosis / Problem: cataract left eye Discharge Goals Goal(s): Improve function Activity Recommendations Activity Limitations: per Instructions/Follow-up section Lifting Limitations: no more than 5 pounds Anesthesia . Post Anesthesia Instructions: If you have had General Anesthesia or IV Sedation: * Do not drive today. * Resume driving when surgeon permits. * Do not make important decisions or sign legal documents today. * Call surgeon for: 1. Temperature elevations greater than 101 degrees F. 2. Uncontrollable pain. 3. Excessive bleeding. 4. Persistent nausea and vomiting. 5. Medication intolerance (nausea, vomiting or rash). * For nausea and vomiting use only clear liquids such as: tea, soda, bouillon until nausea subsides, then gradually increase diet as tolerated. * If you have any concerns or questions, call your surgeon's office. If physician is unavailable and it is an emergency, call 911 or go to the nearest emergency room. . Instructions / Follow-Up Instructions / Follow-Up ACTIVITY RECOMMENDATIONS: * Light activities * You may walk outside, read, watch television. * Mild irritation and blurred vision are common for the first few days, redness around the white part of the eye is common. MEDICATIONS: Resume previous medications unless instructed otherwise by your surgeon. Eye drops (today and tomorrow): Cipro - one drop in operative eye every 2 hours while awake Prednisolone 1% - one drop in operative eye every 2 hours while awake Ilevro - one drop operative eye 1 times daily SPECIAL CARE INSTRUCTIONS: * If any problems or concerns, please call Dr. Rincon's office at . * Keep plastic shield taped over eye to sleep at night. * Keep plastic shield taped over eye except to administer eye drops. * Keep plastic shield on until office visit the following day. FOLLOW UP VISIT: Follow-up with Dr. Rincon in the [place] office as scheduled. If not already scheduled, please call the office at . Diet Recommendations Home Diet: resume previous diet Procedures Procedures Performed: Left Cataract Phacoemulsification With Intraocular Lens Implant Pending Studies Studies pending at discharge: no Medical Emergencies . Who to Call and When: Medical Emergencies: If at any time you feel your situation is an emergency, please call 911 immediately. . Non-Emergent Contact Non-Emergency issues call your: Utility Helicopter Repairer . . "Provider Documentation" section prepared by Abdullahi Rincon.
[2016-05-25 08:00] VITALS: TEMP 36.4
--- NOTE | 2016-05-25 08:00 | [facility] Post Operative Brief Note ---
Immediate Operative Summary Operative Date May 25, 2016. Pre-Operative Diagnosis Cataract Left Eye Post-Operative Diagnosis Same Procedure(s) Performed Left Cataract Phacoemulsification With Intraocular Lens Implant Surgeon Dr. Rincon Chip Tuner Surgeon(s) None Estimated Blood Loss None Findings cataract left eye Specimens None Complication(s) None Disposition Recovery Room / PACU
--- NOTE | 2016-05-25 08:16 | Anesthesia Progress Nt - [facility] ---
Anesthesia Post Op Note Date & Time May 25, 2016 at 08:16 Vital Signs Pain Intensity: 0 Vital Signs Past 12 Hours Date Time Temp Pulse Resp B/P Pulse Ox O2 Delivery O2 Flow Rate FiO2 05/25/16 06:43 36.2 59 16 125/67 96 Room Air Notes Mental Status: alert / awake / arousable, participated in evaluation Pt Amnestic to Procedure: Yes Nausea / Vomiting: adequately controlled Pain: adequately controlled Airway Patency, RR, SpO2: stable & adequate BP & HR: stable & adequate Hydration State: stable & adequate Anesthetic Complications: no major complications apparent
--- NOTE | 2016-05-25 08:24 | OPERATIVE REPORT ---
DATE OF OPERATION: 05/25/2016 PREOPERATIVE DIAGNOSIS: Cataract, left eye. POSTOPERATIVE DIAGNOSIS: Cataract, left eye. PROCEDURE: Phacoemulsification cataract extraction with intraocular lens placement, left eye. SURGEON: Dr. Rincon. COMPLICATIONS: None. ESTIMATED BLOOD LOSS: None. ANESTHESIA: Topical with sedation. OPERATION AND FINDINGS: After informed consent was obtained in the holding area the patient was wheeled back to the Operating Room where cardiac monitoring leads and oxygen by nasal cannula was administered by Anesthesia. Gentle IV sedation was given, and the patient's left eye was prepped and draped in usual sterile fashion. A wire lid speculum was placed into the left eye and the operating microscope was swung into position. Using 0.12 forceps and a Supersharp blade a paracentesis port was made 3 o'clock hours away from the 3 o'clock position of patient's left eye. 1% non-preserved Lidocaine was then injected into the anterior chamber for anesthesia. A 2.2 mm keratotome blade was then used to make a shelved clear corneal incision at the 3 o'clock position of her left eye. Amvisc was injected into the anterior chamber and a cystotome and Utrata forceps were used to perform a curvilinear capsulorrhexis. BSS on a hydrodissection cannula was used to hydrodissect the lens nucleus away from the capsular bag. The phacoemulsification handpiece was then used in a stop and chop fashion to remove the lens nucleus. The irrigation and aspiration handpiece was then used to remove the residual cortical material. Amvisc was injected into the capsular bag and anterior chamber and a Bausch \T\ Lomb MX60 19.0 Diopter intraocular lens was injected into the capsular bag. Irrigation and aspiration handpiece was used to remove the residual viscoelastic material. The wounds were hydrated and noted to be watertight. The wire lid speculum was removed from the eye. Vigamox, Brimonidine, and TobraDex ointment were placed on the eye and it was shielded. It should be noted that EndoCoat was used during the case to protect the cornea endothelium. DISPOSITION: The patient tolerated the procedure well and was wheeled to the post anesthesia care unit in stable condition. I attest to the content of the Intraoperative Record and any orders documented therein. Any exceptions are noted below. I attest to the content of the Intraoperative Record and any orders documented therein. Any exceptio ns are noted below.
[2016-05-25 08:31] VITALS: PULSE 53; O2SAT 97
[2016-05-25 08:43] VITALS: BP 95/57
== END | disposition home or self-care (01) ==
LOC: X.SURG 06:14
PROVIDERS: ATTEND Ophthalmology
DX: H26.9 Unspecified cataract (principal); E11.36 Type 2 diabetes mellitus with diabetic cataract; J45.909 Unspecified asthma, uncomplicated; M19.90 Unspecified osteoarthritis, unspecified site; Z88.5 Allergy status to narcotic agent; Z98.890 Other specified postprocedural states; Z83.511 Family history of glaucoma

== ENCOUNTER 2016-08-23 11:23 | Inpatient (IN) | payer OTHER, MEDICARE ==
[~2016-08-23] VITALS: Ht 190.5 cm; Wt 94.9 kg
[~2016-08-23 11:23] MED LIST changes: -500ML BSS 0.3ML EPI 1:1000PF IRRIG ONE; -ACETAMINOPHEN 325 MG TAB PO PRN; -ALPH600C2 PO; -ALUM-30 PO; -AMVISC PLUS 0.8ML SYRINGE INT OCU ONE; -ARTISOL12 OP; -ASCO100061 PO; -ASPI-391 PO; -ASPI325T39 PO; -ASTA1CAP PO; -ATROPINE SULFATE 0.1 MG/ML 5ML SYR IV PRN; -B-CO1TAB21 PO; -BRIMONIDINE TART 0.2% OP SOLN PER DROP CHARGE ONE; -BSS FLUSH ONE; -CHOL2000 PO; -COEN1CAP37 PO; -COPPER PO; -CYCLOPENTOLATE HCL 1% OP SOLN PER DROP CHARGE OPL SCH; -ENDOCOAT 0.85ML SYRINGE INT OCU ONE; -EpHEDrine SULFATE INJ 50 MG/ML AMP IV PRN; -EpINEphrine INJ 1MG/ML AMP 1 MG/ML AMP ONE; -FAMO20TA11 PO; -FENTANYL CITRATE INJ 50 MCG/1 ML 2 ML VIAL ONE; -KETOROLAC 0.5% OP SOLN PER DROP CHARGE OPL SCH; -L-ME1CAP3 PO; -LACTATED RINGER'S 1000ML 500 ML IV SCH; -LIDO2SOL19 MT; -LIDOCAINE 4% OP SOLN DROP CHARGE ONE; -LIDOCAINE 4% OP SOLN DROP CHARGE OPL SCH; -LIDOCAINE HCL 1% MPF 2 ML VIAL ONE; -LSX20 PO; -MENA1CAP PO; -MIDAZOLAM HCL 1 MG/ML 2ML VIAL ONE; -MILK200C PO; -MOXIFLOXACIN OPH SOLN PER DROP CHARGE ONE; -MOXIFLOXACIN OPH SOLN PER DROP CHARGE OPL SCH; -MULT-506 PO; -OMEG12006 PO; -ONDA4TAB46 PO; -PHEN-905 PO; -PHENYLEPHRINE HCL 2.5% OP SOLN PER DROP CHARGE OPL SCH; -POLY335025 PO; -POVIDONE-IODINE OP SOLN 30 ML BTL ONE; -PRNJ PO; -PROPARACAINE 0.5% OP SOLN PER DROP CHARGE OPL SCH; -SELE1TAB5 PO; -SIME1CAP28 PO; -SOYBGRA9 PO; -TOBRAMYCIN/DEXAMETHASONE OPH OINT PER APPLN CHARGE ONE; -TROPICAMIDE 1% OP SOLN PER DROP CHARGE OPL SCH; -VITATAB19 PO; -VNTHFA/IN INH; -VTME400 PO; -ZINC PO
[2016-08-23] MEDS ORDERED: ONDANSETRON INJ 2 MG/ML 2 ML VIAL IV STA (11:49)
[2016-08-23] MEDS ORDERED: SODIUM CHLORIDE 0.9% 1000ML 1,000 ML IV STA ×2 (11:49→14:06)
[2016-08-23 12:11] LABS: URINE APPEARANCE CLEAR (CLEAR); URINE BILIRUBIN NEG (NEG); URINE COLOR YELLOW; URINE NITRITE NEG (NEG); URINE PH 8.5 (4.5-7.5); URINE SPECIFIC GRAVITY 1.011 (1.000-1.030); UROBILINOGEN NEG (NEG); ZZUR CULT IF INDIC CLEAN CATCH NO
[2016-08-23 12:17] LABS: MANUAL MICROSCOPIC REQUIRED? NO; REVIEW REQ? NO
[2016-08-23 12:32] LABS: BASO % 0.6 %; BASO ABS # 0.04 K/uL (0-0.2); COMPLETE YES; EOS % 2.6 %; HEMATOCRIT 39.2 % (37-47); IG% 0.3 %; LYMPH % 30.5 %; LYMPH ABS # 2.12 K/uL (1.2-3.4); MEAN CELL VOLUME 92.2 fL (80-100); MEAN CORPUSCULAR HEMOGLOBIN 29.9 pg (25-34); MEAN CORPUSCULAR HGB CONC 32.4 g/dl (32-36); MONO % 8.1 %; NEUT % 57.9 %; PLATELET COUNT 251 K/uL (130-400); RED BLOOD COUNT 4.25 M/uL (4.2-5.4); WHITE BLOOD COUNT 6.94 K/uL (4.8-10.8)
--- NOTE | 2016-08-23 12:33 | DIAGNOSTIC IMAGING REPORT ---
CHEST ONE VIEW PORTABLE CLINICAL HISTORY: Chest pain, epigastric abdominal pain. COMPARISON STUDY: Chest radiograph July 22, 2015. FINDINGS: There are left axillary surgical clips. No pneumothorax or pleural effusion is present. Cardiac size is normal. Mediastinal contours are normal. There is no evidence of pulmonary edema. IMPRESSION: No acute cardiopulmonary findings. Electronically signed by: Doyle Vance M.D. 08/23/2016 12:32 PM Dictated Date/Time: 08/23/2016 12:31 PM
[2016-08-23 12:41] LABS: PROTHROMBIN TIME (PATIENT) 10.2 SECONDS (9.0-12.0)
[2016-08-23 12:49] LABS: BUN/CREATININE RATIO 16.1 (10-20); CALCIUM 8.8 mg/dl (8.5-10.1); CREATININE 0.8 mg/dl (0.60-1.20); MAGNESIUM 2.4 mg/dl (1.8-2.4); POTASSIUM 4.2 mmol/L (3.5-5.1)
[2016-08-23 13:00] LABS: ALB/GLOB RATIO 1.1 (0.9-2); THYROID STIMULATING HORMONE 1.21 uIu/ml (0.300-4.500)
[2016-08-23] MEDS ORDERED: OPTIRAY 320 IV PRN ×2 (13:30→15:30)
--- NOTE | 2016-08-23 13:45 | DIAGNOSTIC IMAGING REPORT ---
ABDOMINAL ULTRASOUND, RIGHT UPPER QUADRANT HISTORY: Chest pain, epigastric abdominal pain. COMPARISON: CT of the abdomen and pelvis March 13, 2017, MRCP August 31, 2012 and right upper quadrant ultrasound August 30, 2012. FINDINGS: Mild intra and extrahepatic biliary ductal dilatation is noted. The common bile measures 1.2 cm in caliber. This is similar to CT of 07/12/2016. There is slight dilatation of the main pancreatic duct which measures 4 mm. No common bile duct calculi are identified although the distal common bile duct is obscured. No hepatic lesions are identified by sonography. The pancreatic body is normal. Head and tail are obscured. There is no right hydronephrosis. IMPRESSION: 1. Mild biliary ductal dilatation which is similar to CT of May 14, 2016. This is likely related to prior cholecystectomy although recommend correlation with obstructive liver function tests. 2. Mild dilatation of the main pancreatic duct, a nonspecific finding. No mass identified by sonography although the pancreas is partially obscured and suboptimally assessed by sonography. Electronically signed by: Doyle Vance M.D. 08/23/2016 1:44 PM Dictated Date/Time: 08/23/2016 1:37 PM
--- NOTE | 2016-08-23 14:28 | EMERGENCY ROOM VISIT NOTE ---
ED Visit Note First contact with patient: 11:34 I have personally evaluated this patient examined her and reviewed the pertinent labs and data. I have discussed the case with hCris Armenta, the physician insurance assistant and agree with the plan. Please refer to the PA note This patient has a complex medical history. She comes in with epigastric abdominal pain. On my exam she is mildly tender in epigastric area . She looks well otherwise. EKG does not suggest acute coronary syndrome or arrhythmia. Troponin is not elevated. Lipase was elevated over 3000. We also did imaging and she may have some ductal dilatation of her pancreatic duct. She will likely need further imaging possibly MRCP. She does need to be admitted for IV hydration bowel rest and pain and nausea management. We have consulted the [facility] hospitalist team to see her in the ER.
--- NOTE | 2016-08-23 14:39 | History and Physical ---
History & Physical Date & Time of Service: August 23, 2016 at 14:39 Chief Complaint: Chest/Abd. Pain, D,N, Chills, No Fever Primary Care Physician: Yohannes Morelos M.D.(GIANCARLO) History of Present Illness Source: patient Patient is a 76 Yr old female with PMH of Breast cancer, Ovarian cancer, Melanoma, Basal cell Cancer, Prediabetes, Chemotherapy induced peripheral neuropathy, IBS, Gastroparesis, GERD, Esophageal ulcer and other problems presents with history of nausea, epigastric abdominal pain and diarrhea since one day duration. She states epigastric abdominal pain is intermittent, non radiating, burning like pain which is unrelieved with Famotidine, Mylanta. She states famotidine made the pain worse. Also reports loose watery, non bloody diarrhea associated with nausea and chills but no vomiting. Also denies any SOB , fever, recent travel, urinary symptoms. Reports having food at a farm yesterday and her friend had similar symptoms. Reports used Goldenseal root yesterday but no recent antibiotic use. Last endoscopy was about 1 yr ago. Past Medical/Surgical History Medical Problems: (1) AORTIC ATHEROSCLEROSIS Status: Chronic (2) ASTHMA, UNSPECIFIED Status: Chronic (3) Gastroesophageal reflux disease Status: Chronic (4) Gastroparesis Status: Chronic (5) Idiopathic peripheral neuropathy Status: Chronic (6) MALIGN NEOPL OVARY Status: Resolved (7) Malignant neoplasm of upper-outer quadrant of female breast Status: Resolved (8) Osteoporosis Status: Chronic (9) Pancreatitis Status: Chronic (10) Peripheral neuropathy Status: Chronic (11) Sciatica Status: Chronic (12) UNSPEC CONSTIPATION Status: Chronic Surgical Problems: (1) History of appendectomy Status: Resolved (2) History of cholecystectomy Status: Resolved (3) History of colonoscopy Status: Resolved Family History Diabetes mellitus FHx: cancer FHx: heart disease FHx: lung disease Hypertension Kidney disease Father:Lung cancer Sister/Mother: DM, heart disease Brother:Prostate cancer Social History Smoking Status: Never Smoker Alcohol Use: socially Drug Use: none Marital Status: Housing status: lives with family Occupational Status: retired Immunizations History of Influenza Vaccine: Yes Influenza Vaccine Date: Dec 18, 2011 History of Tetanus Vaccine?: No History of Pneumococcal: Yes Pneumococcal Date: Feb 16, 2009 History of Hepatitis B Vaccine: Unknown Multi-Drug Resistant Organisms History of MDRO: No Allergies Coded Allergies: Statins (Verified Allergy, Intermediate, MUSCLE WEAKNESS, 08/23/16) Tramadol (Verified Allergy, Intermediate, SOB, CHEST PAIN, 08/23/16) HAS TOLERATED MORPHINE Ibandronic Acid (Verified Allergy, Mild, GERD, 08/23/16) Carbamazepine (Verified Allergy, Unknown, pancreatitis, 08/23/16) Proton Pump Inhibitors (Verified Allergy, Unknown, UNKNOWN, 08/23/16) Morphine (Verified Adverse Reaction, Intermediate, GI SYMPTOMS, 08/23/16) PER PATIENT, DRIP MARTIN - "NOT PUSHED" Epinephrine (Verified Adverse Reaction, Unknown, DIZZINESS, 08/23/16) Home Medications Scheduled Albuterol Hfa (Ventolin Hfa), 2-4 PUFFS INH Q6H Artificial Tear Solution (Artificial Tears), 1 DROPS OP QID Ascorbic Acid (Ascorbic Acid), 1,000 MG PO ON HOLD Astaxanthin (Astaxanthin), 4 MG PO ON HOLD Coenzyme Q10 (Ubidecarenone) (Co Q-10), 200 MG PO ON HOLD Famotidine (Pepcid), 20 MG PO HS L-Methylfolate W/ Algae-Vitami (Metanx), 3 MG PO ON HOLD Magnesium Oxide (Magnesium), 500 MG PO ON HOLD Melatonin-Pyridoxine (Melatonin), 1-3 MG PO HS Milk Thistle (Silybum Marianum (Milk Thistle), 200 MG PO ON HOLD Multivitamin (Multivitamin), 1 TAB PO ON HOLD Bunn-3 Fatty Acids (Bunn 3), 1,000 MG PO ON HOLD Prednisolone Acetate (Ophth) (Pred Forte 1% Oph), 1 DROPS OPL QID Selenium-Yeast (Selenium), 3 MG PO ON HOLD Soybean Lecithin (Bulk) (Lecithin), 1 GM PO ON HOLD Tocopheryl Acet,Dl-Alpha (Vitamin E/Dl-Alpha), 1 CAP PO DAILY Scheduled PRN Acetaminophen (Tylenol), 1,000 MG PO HS PRN for Pain Alum & Mag Hydrox-Simethicone (Mylanta), 1 DOSE PO UD PRN for Indigestion Aspirin (Aspirin Ec), 1-2 TAB PO Q6 PRN for Pain Hvwtasn-Hhclhoxjfzznj-Vhrjqfjn (Excedrin Extra Strength), 1-2 TABS PO UD PRN for Pain Furosemide (Furosemide), 20 MG PO for swelling of legs Lidocaine Hcl (Mouth-Throat) (Lidocaine Viscous), 2 % MT QID PRN for SORE THROAT Loperamide Hcl (Imodium), 2 MG PO UD PRN for Diarrhea Ondansetron Hcl (Zofran), 4 MG PO Q6 PRN for Nausea Thdxnxafisuje-Jkbrdhvdbn-Sgtuk (Nyquil Severe Cold/Flu 5-6.25-10-325 mg/15Ml), 1 DOSE PO HS PRN for COLD SYMPTOMS Polyethylene Glycol 3350 (Miralax), 17 GM PO UD PRN for Constipation Prune Juice (Prune Juice ), 4 OZ PO for Constipation Miscellaneous Medications Alpha-Lipoic Acid (Thioctic Ac (Alpha Lipoic Acid), 600 MG PO B-Complex W/Biotin & Folic Aci (Vitamin B50 Complex Tr), 1 TAB PO Cholecalciferol (Vitamin D3), 2,000 UNITS PO Goldenseal (Hydrastis Canadens (Penaloza Seal), Unknown Dose PO Menaquinone-7 (Vitamin K2), 200 MCG PO Nepafenac (Ilevro) Simethicone (Simethicone), 1 TAB PO Vitamin A-Beta Carotene (Vitamin A), 8,000 MG PO [zinc and copper], 1 TAB PO Review of Systems See HPI for pertinent positives & negatives. A total of 10 systems reviewed and were otherwise negative. Physical Exam Vital Signs Date Time Temp Pulse Resp B/P Pulse Ox O2 Delivery O2 Flow Rate FiO2 08/23/16 13:43 119/72 08/23/16 13:01 122/59 08/23/16 12:53 60 12 94 08/23/16 12:31 113/67 08/23/16 12:23 62 21 96 08/23/16 12:07 66 08/23/16 12:01 114/72 08/23/16 11:53 70 17 94 08/23/16 11:40 95 Room Air 08/23/16 11:38 97 Room Air 08/23/16 11:37 129/70 08/23/16 11:25 36.8 72 20 120/72 96 Room Air General Appearance: WD/WN, no apparent distress Head: normocephalic, atraumatic Eyes: normal inspection, PERRL, EOMI ENT: normal ENT inspection, hearing grossly normal Neck: supple, trachea midline Respiratory/Chest: chest non-tender, lungs clear, normal breath sounds, no respiratory distress, no accessory muscle use Cardiovascular: regular rate, rhythm, no edema, no murmur Abdomen/GI: normal bowel sounds, soft, + pertinent finding (+Tenderness predominantly epigastric region, no guarding/rigidity ) Back: normal inspection Extremities/Musculoskelatal: normal inspection, no pedal edema Neurologic/Psych: pen maker II-XII nml as tested, no motor/sensory deficits, alert, oriented x 3 Skin: normal color, warm/dry Diagnostics Laboratory Results Results Past 24 Hours Test 08/23/16 11:55 08/23/16 12:15 08/23/16 12:20 Range/Units Urine Color YELLOW Urine Appearance CLEAR CLEAR Urine pH 8.5 4.5-7.5 Urine Specific [place] 1.011 1.000-1.030 Urine Protein NEG NEG Urine Glucose (UA) NEG NEG Urine Ketones NEG NEG Urine Occult Blood NEG NEG Urine Nitrite NEG NEG Urine Bilirubin NEG NEG Urine Urobilinogen NEG NEG Urine Leukocyte Esterase TRACE NEG Urine WBC (Auto) 1-5 0-5 /hpf Urine RBC (Auto) 0-4 0-4 /hpf Urine Hyaline Casts (Auto) 1-5 0-5 /lpf Urine Epithelial Cells (Auto) 5-10 0-5 /lpf Urine Bacteria (Auto) NEG NEG White Blood Count 6.94 4.8-10.8 K/uL Red Blood Count 4.25 4.2-5.4 M/uL Hemoglobin 12.7 12.0-16.0 g/dL Hematocrit 39.2 37-47 % Mean Corpuscular Volume 92.2 80-100 fL Mean Corpuscular Hemoglobin 29.9 25-34 pg Mean Corpuscular Hemoglobin Concent 32.4 32-36 g/dl Platelet Count 251 130-400 K/uL Mean Platelet Volume 10.0 7.4-10.4 fL Neutrophils (%) (Auto) 57.9 % Lymphocytes (%) (Auto) 30.5 % Monocytes (%) (Auto) 8.1 % Eosinophils (%) (Auto) 2.6 % Basophils (%) (Auto) 0.6 % Neutrophils # (Auto) 4.02 1.4-6.5 K/uL Lymphocytes # (Auto) 2.12 1.2-3.4 K/uL Monocytes # (Auto) 0.56 0.11-0.59 K/uL Eosinophils # (Auto) 0.18 0-0.5 K/uL Basophils # (Auto) 0.04 0-0.2 K/uL RDW Standard Deviation 41.0 36.4-46.3 fL RDW Coefficient of Variation 12.1 11.5-14.5 % Immature Granulocyte % (Auto) 0.3 % Immature Granulocyte # (Auto) 0.02 0.00-0.02 K/uL Prothrombin Time 10.2 9.0-12.0 SECONDS Prothromb Time International Ratio 1.0 0.9-1.1 Activated Partial Thromboplast Time 24.8 21.0-31.0 SECONDS Partial Thromboplastin Ratio 1.0 Sodium Level 142 136-145 mmol/L Potassium Level 4.2 3.5-5.1 mmol/L Chloride Level 107 98-107 mmol/L Carbon Dioxide Level 28 21-32 mmol/L Anion Gap 7.0 3-11 mmol/L Blood Urea Nitrogen 13 7-18 mg/dl Creatinine 0.80 0.60-1.20 mg/dl Est Creatinine Clear Calc Drug Dose 76.7 ml/min Estimated GFR () 83.6 Estimated GFR (Non- 72.1 BUN/Creatinine Ratio 16.1 10-20 Random Glucose 113 70-99 mg/dl Calcium Level 8.8 8.5-10.1 mg/dl Magnesium Level 2.4 1.8-2.4 mg/dl Total Bilirubin 0.8 0.2-1 mg/dl Aspartate Amino Transf (AST/SGOT) 486 15-37 U/L Alanine Aminotransferase (ALT/SGPT) 409 12-78 U/L Alkaline Phosphatase 81 45-117 U/L Total Protein 7.4 6.4-8.2 gm/dl Albumin 3.9 3.4-5.0 gm/dl Globulin 3.5 2.5-4.0 gm/dl Albumin/Globulin Ratio 1.1 0.9-2 Lipase 3507 73-393 U/L Thyroid Stimulating Hormone (TSH) 1.210 0.300-4.500 uIu/ml Bedside Troponin I 0.000 0-0.045 ng/ml Diagnostic Radiology CXR: No acute cardiopulmonary findings. ABD USD: 1. Mild biliary ductal dilatation which is similar to CT of May 14, 2016. This is likely related to prior cholecystectomy although recommend correlation with obstructive liver function tests. 2. Mild dilatation of the main pancreatic duct, a nonspecific finding. No mass identified by sonography although the pancreas is partially obscured and suboptimally assessed by sonography. EKG EKG: No ST-T wave changes, NSR Impression Assessment and Plan Epigastric Abdominal Pain: DD: Pancreatitis Patient presents with nausea, abd pain, diarrhea ABD USD:Mild biliary ductal dilatation unchanged from Apr 2016, Mild dilatation of pancreatic duct Transaminitis and elevated lipase levels Will obtain CT abdomen Start IV fluids, Pain control Consult GI for possible MRCP Stool studies Zofran for nausea NPO for now Monitor LFTs and Lipase Avoid PPIs (Patient reports Intolerance) EKG no signs of ischemia, Check Troponin H/O Breast/Ovarian Cancer: S/P Hysterectomy, Oophorectomy and lumpectomy Previously followed with Currently not on any meds H/O GERD, Esophageal Ulcer IBS and Gastroparesis: States took famotidine yesterday which made abd pain worse Monitor Chemotherapy induced Peripheral Neuropathy: Stable Currently not on any meds DVT Px: Lovenox SQ Code Status; Full Code Disposition: Plan to discharge home when medically cleared director of medical staff services consulted
[2016-08-23] MEDS ORDERED: ALUM-30 PO (14:47)
[2016-08-23] MEDS ORDERED: ONDANSETRON INJ 2 MG/ML 2 ML VIAL IV PRN (15:15)
[2016-08-23] MEDS ORDERED: ACETAMINOPHEN 325 MG TAB PO PRN (15:15)
[2016-08-23] MEDS ORDERED: MELATONIN PYRIDOXINE PO PRN (15:30)
--- NOTE | 2016-08-23 15:54 | DIAGNOSTIC IMAGING REPORT ---
ABDOMEN AND PELVIS CT WITH IV CONTRAST CT DOSE: 472.48 mGy.cm HISTORY: Upper Abdominal pain. ? Pancreatitis TECHNIQUE: Multiaxial CT images of the abdomen and pelvis were performed following the use of intravenous contrast. COMPARISON STUDY: Abdomen and pelvis CT 05/14/2016. FINDINGS: The lung bases are clear. No pneumoperitoneum. No pneumatosis. Cholecystectomy. Mild to moderate intra and extrahepatic bile duct dilatation remains unchanged. No hepatic or splenic masses. The pancreas enhances normally. No peripancreatic inflammatory change to suggest acute pancreatitis. Main pancreatic duct is top normal in diameter measuring up to 3 mm. The kidneys and adrenal glands are unremarkable. No retroperitoneal lymphadenopathy. Tiny fat-containing umbilical hernia. The bladder is unremarkable. No bowel wall thickening or obstruction. A few colonic diverticula. IMPRESSION: 1. No CT evidence for acute pancreatitis. 2. Mild to moderate intra and extra hepatic bile duct dilatation, unchanged. This is likely due to the patient's postcholecystectomy state. 3. No bowel wall thickening or obstruction. Electronically signed by: Oumar Bustamante M.D. 08/23/2016 3:53 PM Dictated Date/Time: 08/23/2016 3:45 PM
[2016-08-23 16:00] VITALS: O2SAT 96; Ht 190.5 cm; Wt 94.9 kg
[2016-08-23] MEDS: SODIUM CHLORIDE 0.9% 1000ML 1,000 ML IV SCH ×2 (16:48→20:58)
[2016-08-23] MEDS: KETOROLAC TROMETHAMINE 15 MG/ML VIAL IV PRN (19:33)
[2016-08-23] MEDS: ENOXAPARIN 40 MG/0.4 ML SYR SQ SCH (19:33)
--- NOTE | 2016-08-23 20:19 | Progress Note ---
Progress Note Date of Service August 23, 2016. Progress Note reporting 9/10 pain per RN has taken oxycodone in the past with no problems prefers po pain medication will order Maddi Lockett MD
[2016-08-23] MEDS ORDERED: OXYCODONE/ACETAMINOPHEN 5-325 TAB PO PRN (20:30)
--- NOTE | 2016-08-23 21:22 | EMERGENCY ROOM VISIT NOTE ---
History First contact with patient: 11:34 Chief Complaint: CHEST PAIN Stated Complaint: ABDOMINAL PAIN Nursing Triage Summary: Had GERD Wednesday, last night had diarrhea/GERD at 2200, took 2 immodium. Acute headache at 0130, took aspirin, went back to bed. At 0300, woke up with "terrible" epigastric pain. Got into recliner, pain kept coming "in waves". Took "everything for stomach I could think of", but pain persisted. Additional diarrhea this morning. Tried to sleep, but pain kept coming back, with diarrhea. Diarrhea this morning x3. History of Present Illness The patient is a 76 year old female who presents to the Emergency Room via private vehicle with complaints of "abdominal pain". Patient states that she is a history of GERD, and is taking Mylanta with help. She states that Wednesday, she felt as if she had a GERD related asthma exacerbation, and was in need of an inhaler. She states that she stopped eating foods that caused her GERD exacerbations, and yesterday while at a wedding she tried to eat light foods in her stomach became upset. She notes pain in the epigastric region that radiated to her chest. She states that she then came home, he began with diarrhea thought was her IBS, and then took 2 Imodium. She states that she woke up with epigastric pain, and headache. She took aspirin then. She states that the epigastric pain comes in waves, and is often associated with diarrhea. She notes that the pain is still in waves, and is just below the sternal region. She notes that the pain around 9 AM this morning transitioned into her lower quadrants. She states that upon arrival, her pain is nearly diminished. She states that she had this in April. There is associated nausea, no chills. She denies any vomiting, fever, close contacts with similar symptoms, shortness of breath, blood in stool, history of blood clots, history of heart problems. The appendix, gallbladder, and uterus are removed. Review of Systems A complete 10-point Review of Systems was discussed with the patient, with pertinent positives and negatives listed in the History of Present Illness. All remaining Review of Systems questions can be considered negative unless otherwise specified. 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 (11) Osteoporosis (12) Pancreatitis (13) Peripheral neuropathy (14) Sciatica (15) UNSPEC CONSTIPATION Surgical Problems: (1) History of appendectomy (2) History of cholecystectomy (3) History of colonoscopy Family History Diabetes mellitus FHx: cancer FHx: heart disease FHx: lung disease Hypertension Kidney disease Social History Smoking Status: Never Smoker Alcohol Use: occasionally Drug Use: none Marital Status: Housing Status: lives with family Occupation Status: retired Current/Historical Medications Scheduled Albuterol Hfa (Ventolin Hfa), 2-4 PUFFS INH Q6H Artificial Tear Solution (Artificial Tears), 1 DROPS OP QID Ascorbic Acid (Ascorbic Acid), 1,000 MG PO ON HOLD Astaxanthin (Astaxanthin), 4 MG PO ON HOLD Coenzyme Q10 (Ubidecarenone) (Co Q-10), 200 MG PO ON HOLD Famotidine (Pepcid), 20 MG PO HS L-Methylfolate W/ Algae-Vitami (Metanx), 3 MG PO ON HOLD Magnesium Oxide (Magnesium), 500 MG PO ON HOLD Melatonin-Pyridoxine (Melatonin), 1-3 MG PO HS Milk Thistle (Silybum Marianum (Milk Thistle), 200 MG PO ON HOLD Multivitamin (Multivitamin), 1 TAB PO ON HOLD [place]-3 Fatty Acids ([place] 3), 1,000 MG PO ON HOLD Prednisolone Acetate (Ophth) (Pred Forte 1% Oph), 1 DROPS OPL QID Selenium-Yeast (Selenium), 3 MG PO ON HOLD Soybean Lecithin (Bulk) (Lecithin), 1 GM PO ON HOLD Tocopheryl Acet,Dl-Alpha (Vitamin E/Dl-Alpha), 1 CAP PO DAILY Scheduled PRN Alum & Mag Hydrox-Simethicone (Mylanta), 1 DOSE PO UD PRN for Indigestion Aspirin (Aspirin Ec), 1-2 TAB PO Q6 PRN for Pain Qcimzph-Skrjwlaieevzd-Psndonzt (Excedrin Extra Strength), 1-2 TABS PO UD PRN for Pain Furosemide (Furosemide), 20 MG PO for swelling of legs Lidocaine Hcl (Mouth-Throat) (Lidocaine Viscous), 2 % MT QID PRN for SORE THROAT Loperamide Hcl (Imodium), 2 MG PO UD PRN for Diarrhea Ondansetron Hcl (Zofran), 4 MG PO Q6 PRN for Nausea Dnszfmyhcnami-Oyydmailfp-Rnhjo (Nyquil Severe Cold/Flu 5-6.25-10-325 mg/15Ml), 1 DOSE PO HS PRN for COLD SYMPTOMS Polyethylene Glycol 3350 (Miralax), 17 GM PO UD PRN for Constipation Prune Juice (Prune Juice ), 4 OZ PO for Constipation Miscellaneous Medications Alpha-Lipoic Acid (Thioctic Ac (Alpha Lipoic Acid), 600 MG PO B-Complex W/Biotin & Folic Aci (Vitamin B50 Complex Tr), 1 TAB PO Cholecalciferol (Vitamin D3), 2,000 UNITS PO Goldenseal (Hydrastis Canadens (Penaloza Seal), Unknown Dose PO Menaquinone-7 (Vitamin K2), 200 MCG PO Nepafenac (Ilevro) Simethicone (Simethicone), 1 TAB PO Vitamin A-Beta Carotene (Vitamin A), 8,000 MG PO [zinc and copper], 1 TAB PO Allergies Coded Allergies: Statins (Verified Allergy, Intermediate, MUSCLE WEAKNESS, 08/23/16) Tramadol (Verified Allergy, Intermediate, SOB, CHEST PAIN, 08/23/16) HAS TOLERATED MORPHINE Ibandronic Acid (Verified Allergy, Mild, GERD, 08/23/16) Carbamazepine (Verified Allergy, Unknown, pancreatitis, 08/23/16) Proton Pump Inhibitors (Verified Allergy, Unknown, UNKNOWN, 08/23/16) Morphine (Verified Adverse Reaction, Intermediate, GI SYMPTOMS, 08/23/16) PER PATIENT, DRIP OKAY - "NOT PUSHED" Epinephrine (Verified Adverse Reaction, Unknown, DIZZINESS, 08/23/16) Physical Exam Vital Signs Date Time Temp Pulse Resp B/P (MAP) Pulse Ox O2 Delivery O2 Flow Rate FiO2 08/23/16 13:43 119/72 08/23/16 13:01 122/59 08/23/16 12:53 60 12 94 08/23/16 12:31 113/67 08/23/16 12:23 62 21 96 08/23/16 12:07 66 08/23/16 12:01 114/72 08/23/16 11:53 70 17 94 08/23/16 11:40 95 Room Air 08/23/16 11:38 97 Room Air 08/23/16 11:37 129/70 08/23/16 11:25 36.8 72 20 120/72 96 Room Air Pain Rating (0-10): 5.0 Physical Exam VITAL SIGNS - Vital signs and nursing notes were reviewed. Patient is afebrile , normotensive, non-tachycardic and is saturating well on room air 96%. GENERAL -76-year-old female appearing her stated age who is in no acute distress. Communicates well with provider and answers questions appropriately. SKIN - Without rashes. Negative petechial rashes. HEAD - NC/AT. EYES - Sclera anicteric. Palpebral conjunctiva pink and moist with no injection noted. MOUTH/OROPHARYNX - Without perioral cyanosis. Buccal mucosa pink and moist and without leukoplakia. Tongue midline with equal elevation of palate bilaterally. No tonsillar hypertrophy, erythema, or exudates noted. Fire dentition noted. LUNGS - Chest wall symmetric without accessory muscle use, intercostals retractions, or central cyanosis. Normal vesicular breath sounds CTA B/L. No wheezes, rales, or rhonchi appreciated. CARDIAC - RRR with S1/S2. No murmur, rubs, or gallops appreciated. ABDOMEN - Abdominal contour without pulsations or visible masses. BS normoactive all four quadrants. There is epigastric abdominal tenderness. No palpable masses, hepatosplenomegaly, or ascites noted. EXTREMITIES - No clubbing or peripheral cyanosis. No pretibial edema present. +5 /5 strength noted in UE/LE bilaterally. Medical Decision & Procedures ER Provider Diagnostic Interpretation: ABDOMINAL ULTRASOUND, RIGHT UPPER QUADRANT HISTORY: Chest pain, epigastric abdominal pain. COMPARISON: CT of the abdomen and pelvis March 13, 2017, MRCP August 31, 2012 and right upper quadrant ultrasound August 30, 2012. FINDINGS: Mild intra and extrahepatic biliary ductal dilatation is noted. The common bile measures 1.2 cm in caliber. This is similar to CT of 07/12/2016. There is slight dilatation of the main pancreatic duct which measures 4 mm. No common bile duct calculi are identified although the distal common bile duct is obscured. No hepatic lesions are identified by sonography. The pancreatic body is normal. Head and tail are obscured. There is no right hydronephrosis. IMPRESSION: 1. Mild biliary ductal dilatation which is similar to CT of May 14, 2016. This is likely related to prior cholecystectomy although recommend correlation with obstructive liver function tests. 2. Mild dilatation of the main pancreatic duct, a nonspecific finding. No mass identified by sonography although the pancreas is partially obscured and suboptimally assessed by sonography. Electronically signed by: Doyle Vance M.D. 08/23/2016 1:44 PM Dictated Date/Time: 08/23/2016 1:37 PM CHEST ONE VIEW PORTABLE CLINICAL HISTORY: Chest pain, epigastric abdominal pain. COMPARISON STUDY: Chest radiograph July 22, 2015. FINDINGS: There are left axillary surgical clips. No pneumothorax or pleural effusion is present. Cardiac size is normal. Mediastinal contours are normal. There is no evidence of pulmonary edema. IMPRESSION: No acute cardiopulmonary findings. Electronically signed by: Doyle Vance M.D. 08/23/2016 12:32 PM Dictated Date/Time: 08/23/2016 12:31 PM Laboratory Results Test 08/23/16 11:55 08/23/16 12:15 08/23/16 12:20 Urine Color YELLOW Urine Appearance CLEAR (CLEAR) Urine pH 8.5 (4.5-7.5) Urine Specific [place] 1.011 (1.000-1.030) Urine Protein NEG (NEG) Urine Glucose (UA) NEG (NEG) Urine Ketones NEG (NEG) Urine Occult Blood NEG (NEG) Urine Nitrite NEG (NEG) Urine Bilirubin NEG (NEG) Urine Urobilinogen NEG (NEG) Urine Leukocyte Esterase TRACE (NEG) Urine WBC (Auto) 1-5 /hpf (0-5) Urine RBC (Auto) 0-4 /hpf (0-4) Urine Hyaline Casts (Auto) 1-5 /lpf (0-5) Urine Epithelial Cells (Auto) 5-10 /lpf (0-5) Urine Bacteria (Auto) NEG (NEG) Prothrombin Time 10.2 SECONDS (9.0-12.0) Prothromb Time International Ratio 1.0 (0.9-1.1) Activated Partial Thromboplast Time 24.8 SECONDS (21.0-31.0) Partial Thromboplastin Ratio 1.0 Magnesium Level 2.4 mg/dl (1.8-2.4) Thyroid Stimulating Hormone (TSH) 1.210 uIu/ml (0.300-4.500) Bedside Troponin I 0.000 ng/ml (0-0.045) Medications Administered Medications (Trade) Dose Ordered Sig/Azucena Route Start Time Stop Time Status Last Admin Dose Admin Sodium Chloride 1,000 ml @ 999 mls/hr Q1H1M STAT IV 08/23/16 11:49 08/23/16 12:49 DC 08/23/16 12:47 999 MLS/HR Ondansetron HCl (Zofran Inj) 4 mg NOW STAT IV 08/23/16 11:49 08/23/16 11:52 DC 08/23/16 12:47 4 MG Sodium Chloride 1,000 ml @ 200 mls/hr Q5H STAT IV 08/23/16 14:06 08/23/16 16:34 DC 08/23/16 14:21 200 MLS/HR Acetaminophen (Tylenol Tab) 650 mg Q4H PRN PO 08/23/16 15:15 08/24/16 09:55 DC 08/23/16 16:48 650 MG Ondansetron HCl (Zofran Inj) 4 mg Q6H PRN IV 08/23/16 15:15 08/25/16 17:16 DC 08/23/16 16:48 4 MG Medical Decision Patient was seen and evaluated as above. After obtaining a thorough history and physical examination IV access initiated the above workup was performed. Patient presents with substernal pain, but more pronounced epigastric abdominal pain. Has a history of pancreatitis. There is concern for this subjectively and objectively. EKG reveals no severe change from previous. No ectopy or ischemic change noted. Patient was given Zofran and fluids. She declined pain medication at this time. CBC reveals no leukocytosis or anemia. Coagulation studies unremarkable. CMP reveals random glucose of 113, AST and ALT elevated at 46, regular 9 respectively. Point care troponin negative. Lipase elevated at 3507. TSH within normal limits. Urine reveals high pH, otherwise no concerning process. Chest x-ray reveals no acute process. Ultrasound is concerning for some ductal dilatation of the biliary and pancreatic duct. CT was pursued. No significant abnormality noted. With the lipase elevation, patient discomfort as well as imaging findings I do believe that further intervention is warranted at this time in the inpatient setting with possible MRCP. Case was discussed with my attending, who also personally evaluated patient. We did discuss the case with the hospitalist, who agreed to evaluate the patient for further evaluation and management. Please refer to further documentation regarding the patient's stay. In evaluation treatment this patient following differential diagnoses were entertained: Choledocholithiasis, cholecystitis, cholangitis, pancreatitis, metastasis, among others. Impression Primary Impression: Abdominal pain Additional Impression: Elevated lipase Departure Information Dispostion Admitted as an inpatient Condition FAIR Referrals Yohannes Morelos M.D.(GIANCARLO) (PCP) Forms HOME CARE DOCUMENTATION FORM, IMPORTANT VISIT INFORMATION Patient Instructions My [facility] Problem Qualifiers Primary Impression: Abdominal pain Abdominal location: epigastric Qualified Codes: R10.13 - Epigastric pain
[2016-08-23 23:05] VITALS: BP 117/69; PULSE 57; TEMP 36.8; O2SAT 98
[2016-08-24] MEDS: SODIUM CHLORIDE 0.9% 1000ML 1,000 ML IV SCH ×2 (03:26→13:58)
[2016-08-24 07:05] LABS: BASO % 1.1 %; BASO ABS # 0.06 K/uL (0-0.2); COMPLETE YES; EOS % 4.5 %; HEMATOCRIT 35.1 % (37-47); LYMPH ABS # 1.92 K/uL (1.2-3.4); MEAN CELL VOLUME 93.9 fL (80-100); MEAN CORPUSCULAR HEMOGLOBIN 31.8 pg (25-34); MEAN CORPUSCULAR HGB CONC 33.9 g/dl (32-36); MONO % 8.8 %; NEUT % 49.6 %; PLATELET COUNT 204 K/uL (130-400); RED BLOOD COUNT 3.74 M/uL (4.2-5.4); WHITE BLOOD COUNT 5.33 K/uL (4.8-10.8)
[2016-08-24] MEDS: KETOROLAC TROMETHAMINE 15 MG/ML VIAL IV PRN (07:17)
[2016-08-24] MEDS: ALBUT/IPRATROP 3MG/0.5MG NEB 3 ML VIAL INH PRN (07:30)
[2016-08-24 07:32] VITALS: PULSE 87; O2SAT 98
[2016-08-24 07:38] VITALS: BP 113/78; PULSE 52; TEMP 36.5; O2SAT 96
[2016-08-24 07:55] LABS: BUN/CREATININE RATIO 18.3 (10-20); CALCIUM 8.2 mg/dl (8.5-10.1); CREATININE 0.77 mg/dl (0.60-1.20)
[2016-08-24 08:10] LABS: ALB/GLOB RATIO 1.2 (0.9-2)
[2016-08-24 08:49] VITALS: O2SAT 93
--- NOTE | 2016-08-24 09:54 | Progress Note ---
Internal Med Progress Note Date of Service: August 24, 2016. Provider Documentation: SUBJECTIVE: Seen and examined at bedside. States abd pain is better. Nausea, diarrhea resolved. States was SOB this morning which resolved after duoneb. Offers no other complaints. OBJECTIVE: Vital Signs-as noted below General Appearance: WD/WN, no apparent distress Head: normocephalic, atraumatic Eyes: normal inspection, PERRL, EOMI ENT: normal ENT inspection, hearing grossly normal Neck: supple, trachea midline Respiratory/Chest: chest non-tender, lungs clear, normal breath sounds Cardiovascular: regular rate, rhythm, no edema, no murmur Abdomen/GI: normal bowel sounds, soft, + mild Tender epigastric region Back: normal inspection Extremities/Musculoskelatal: normal inspection, no pedal edema Neurologic/Psych: inbound sales representative II-XII nml as tested, no motor/sensory deficits, alert, oriented x 3 Skin: normal color, warm/dry Lab data as noted below. ASSESSMENT & PLAN: Epigastric Abdominal Pain: Patient presents with nausea, abd pain, diarrhea ABD USD:Mild biliary ductal dilatation unchanged from Apr 2016, Mild dilatation of pancreatic duct Transaminitis likely secondary to meds (Takes 1000mg Tylenol daily at home) Lipase levels improved CT abd: No signs of pancreatitis Continue IV fluids, Pain control GI consulted Stool negative for C.diff Monitor LFTs EKG no signs of ischemia, Troponin X 2: Negative Avoids hepatotoxic meds Start clear liquid diet H/O Breast/Ovarian Cancer: S/P Hysterectomy, Oophorectomy and lumpectomy Previously followed with Currently not on any meds H/O GERD, Esophageal Ulcer IBS and Gastroparesis: Continue famotidine Monitor Chemotherapy induced Peripheral Neuropathy: Stable Currently not on any meds DVT Px: Lovenox SQ Code Status; Full Code Disposition: Plan to discharge home when medically cleared hotel services supervisor consulted Vital Signs: Date Time Temp Pulse Resp B/P Pulse Ox O2 Delivery O2 Flow Rate FiO2 08/24/16 08:49 93 Room Air 08/24/16 07:38 36.5 52 18 113/78 96 Room Air 08/24/16 07:32 87 12 98 Room Air 08/24/16 00:00 Room Air 08/23/16 23:05 36.8 57 18 117/69 98 Room Air 08/23/16 16:00 96 Room Air 08/23/16 15:46 67 18 121/67 96 Room Air 08/23/16 13:43 119/72 08/23/16 13:01 122/59 08/23/16 12:53 60 12 94 08/23/16 12:31 113/67 08/23/16 12:23 62 21 96 08/23/16 12:07 66 08/23/16 12:01 114/72 08/23/16 11:53 70 17 94 08/23/16 11:40 95 Room Air 08/23/16 11:38 97 Room Air 08/23/16 11:37 129/70 08/23/16 11:25 36.8 72 20 120/72 96 Room Air Lab Results: Results Past 24 Hours Test 08/23/16 11:55 08/23/16 12:15 08/23/16 12:20 08/23/16 15:56 Range/Units Urine Color YELLOW Urine Appearance CLEAR CLEAR Urine pH 8.5 4.5-7.5 Urine Specific [place] 1.011 1.000-1.030 Urine Protein NEG NEG Urine Glucose (UA) NEG NEG Urine Ketones NEG NEG Urine Occult Blood NEG NEG Urine Nitrite NEG NEG Urine Bilirubin NEG NEG Urine Urobilinogen NEG NEG Urine Leukocyte Esterase TRACE NEG Urine WBC (Auto) 1-5 0-5 /hpf Urine RBC (Auto) 0-4 0-4 /hpf Urine Hyaline Casts (Auto) 1-5 0-5 /lpf Urine Epithelial Cells (Auto) 5-10 0-5 /lpf Urine Bacteria (Auto) NEG NEG White Blood Count 6.94 4.8-10.8 K/uL Red Blood Count 4.25 4.2-5.4 M/uL Hemoglobin 12.7 12.0-16.0 g/dL Hematocrit 39.2 37-47 % Mean Corpuscular Volume 92.2 80-100 fL Mean Corpuscular Hemoglobin 29.9 25-34 pg Mean Corpuscular Hemoglobin Concent 32.4 32-36 g/dl Platelet Count 251 130-400 K/uL Mean Platelet Volume 10.0 7.4-10.4 fL Neutrophils (%) (Auto) 57.9 % Lymphocytes (%) (Auto) 30.5 % Monocytes (%) (Auto) 8.1 % Eosinophils (%) (Auto) 2.6 % Basophils (%) (Auto) 0.6 % Neutrophils # (Auto) 4.02 1.4-6.5 K/uL Lymphocytes # (Auto) 2.12 1.2-3.4 K/uL Monocytes # (Auto) 0.56 0.11-0.59 K/uL Eosinophils # (Auto) 0.18 0-0.5 K/uL Basophils # (Auto) 0.04 0-0.2 K/uL RDW Standard Deviation 41.0 36.4-46.3 fL RDW Coefficient of Variation 12.1 11.5-14.5 % Immature Granulocyte % (Auto) 0.3 % Immature Granulocyte # (Auto) 0.02 0.00-0.02 K/uL Prothrombin Time 10.2 9.0-12.0 SECONDS Prothromb Time International Ratio 1.0 0.9-1.1 Activated Partial Thromboplast Time 24.8 21.0-31.0 SECONDS Partial Thromboplastin Ratio 1.0 Sodium Level 142 136-145 mmol/L Potassium Level 4.2 3.5-5.1 mmol/L Chloride Level 107 98-107 mmol/L Carbon Dioxide Level 28 21-32 mmol/L Anion Gap 7.0 3-11 mmol/L Blood Urea Nitrogen 13 7-18 mg/dl Creatinine 0.80 0.60-1.20 mg/dl Est Creatinine Clear Calc Drug Dose 76.7 ml/min Estimated GFR () 83.6 Estimated GFR (Non- 72.1 BUN/Creatinine Ratio 16.1 10-20 Random Glucose 113 70-99 mg/dl Calcium Level 8.8 8.5-10.1 mg/dl Magnesium Level 2.4 1.8-2.4 mg/dl Total Bilirubin 0.8 0.2-1 mg/dl Aspartate Amino Transf (AST/SGOT) 486 15-37 U/L Alanine Aminotransferase (ALT/SGPT) 409 12-78 U/L Alkaline Phosphatase 81 45-117 U/L Total Protein 7.4 6.4-8.2 gm/dl Albumin 3.9 3.4-5.0 gm/dl Globulin 3.5 2.5-4.0 gm/dl Albumin/Globulin Ratio 1.1 0.9-2 Lipase 3507 73-393 U/L Thyroid Stimulating Hormone (TSH) 1.210 0.300-4.500 uIu/ml Bedside Troponin I 0.000 0-0.045 ng/ml Troponin I < 0.015 0-0.045 ng/ml Test 08/23/16 18:06 08/23/16 20:10 08/24/16 00:49 08/24/16 06:06 Range/Units Bedside Glucose 105 110 112 70-90 mg/dl Troponin I < 0.015 0-0.045 ng/ml Test 08/24/16 06:55 Range/Units White Blood Count 5.33 4.8-10.8 K/uL Red Blood Count 3.74 4.2-5.4 M/uL Hemoglobin 11.9 12.0-16.0 g/dL Hematocrit 35.1 37-47 % Mean Corpuscular Volume 93.9 80-100 fL Mean Corpuscular Hemoglobin 31.8 25-34 pg Mean Corpuscular Hemoglobin Concent 33.9 32-36 g/dl Platelet Count 204 130-400 K/uL Mean Platelet Volume 10.0 7.4-10.4 fL Neutrophils (%) (Auto) 49.6 % Lymphocytes (%) (Auto) 36.0 % Monocytes (%) (Auto) 8.8 % Eosinophils (%) (Auto) 4.5 % Basophils (%) (Auto) 1.1 % Neutrophils # (Auto) 2.64 1.4-6.5 K/uL Lymphocytes # (Auto) 1.92 1.2-3.4 K/uL Monocytes # (Auto) 0.47 0.11-0.59 K/uL Eosinophils # (Auto) 0.24 0-0.5 K/uL Basophils # (Auto) 0.06 0-0.2 K/uL RDW Standard Deviation 42.3 36.4-46.3 fL RDW Coefficient of Variation 12.4 11.5-14.5 % Immature Granulocyte % (Auto) 0.0 % Immature Granulocyte # (Auto) 0.00 0.00-0.02 K/uL Sodium Level 145 136-145 mmol/L Potassium Level 4.0 3.5-5.1 mmol/L Chloride Level 112 98-107 mmol/L Carbon Dioxide Level 26 21-32 mmol/L Anion Gap 7.0 3-11 mmol/L Blood Urea Nitrogen 14 7-18 mg/dl Creatinine 0.77 0.60-1.20 mg/dl Est Creatinine Clear Calc Drug Dose 79.7 ml/min Estimated GFR () 87.5 Estimated GFR (Non- 75.5 BUN/Creatinine Ratio 18.3 10-20 Random Glucose 101 70-99 mg/dl Calcium Level 8.2 8.5-10.1 mg/dl Total Bilirubin 0.5 0.2-1 mg/dl Aspartate Amino Transf (AST/SGOT) 473 15-37 U/L Alanine Aminotransferase (ALT/SGPT) 623 12-78 U/L Alkaline Phosphatase 113 45-117 U/L Total Protein 6.1 6.4-8.2 gm/dl Albumin 3.3 3.4-5.0 gm/dl Globulin 2.8 2.5-4.0 gm/dl Albumin/Globulin Ratio 1.2 0.9-2 Lipase 526 73-393 U/L Microbiology Results 08/24/16 C.difficile Toxin B Gene (PCR) - Final, Complete No C. difficile toxin B gene detected 08/24/16 WBC Smear, Received Pending 08/24/16 Shiga Toxin Test, Received Pending 08/24/16 Stool Culture, Received Pending
[2016-08-24] MEDS ORDERED: OXYCODONE HCL IR 5 MG TAB (IMMEDIATE RELEASE) PO PRN (10:15)
[2016-08-24] MEDS: FAMOTIDINE IV INJ 20 MG in DEXTROSE 5% 100ML 100 ML IV SCH ×2 (13:58→21:00)
[2016-08-24 14:43] VITALS: BP 99/60; PULSE 50; TEMP 36.6; O2SAT 95
[2016-08-24 16:12] VITALS: O2SAT 95
--- NOTE | 2016-08-24 17:24 | GASTROINTESTINAL CONSULTATION ---
DATE OF CONSULTATION: 08/24/2016 REFERRING PHYSICIAN: Dr. Leslie. I was asked by Dr. Leslie to consult on this woman for evaluation of abdominal pain and pancreatitis. HISTORY OF PRESENT ILLNESS: The patient is a 76-year-old who presented on the because of epigastric abdominal pain. She said it was burning like and unrelieved by Pepcid and Mylanta. She states that she has had some increased heartburn prior to this that led up to the severe epigastric pain. Upon presentation, she was found to have an elevated lipase of 3500. Since admission, she states that her symptoms have improved, though she still has some discomfort in her epigastric area. She has a quite complicated history including breast cancer, ovarian cancer and neuropathy from chemotherapy. She has a history of gastroparesis, reflux symptoms. She had a cholecystectomy in the past. She is typically followed by Dr. Blair Figueroa with [facility] as well as Bonnie Terry. Dr. Figueroa has done several upper endoscopic ultrasounds which eventually led to her cholecystectomy because of biliary sludge. She has had a history of elevated liver enzymes. She denies any significant alcohol use. FAMILY HISTORY: Negative for gastrointestinal disease. SOCIAL HISTORY: Not significant for smoking or excessive alcohol use. DRUG ALLERGIES: INCLUDE STATINS, TRAMADOL, IBANDRONIC ACID, CARBAMAZEPINE, PROTON PUMP INHIBITORS, MORPHINE AND EPINEPHRINE. OUTPATIENT MEDICATIONS: Include numerous vitamins and supplements as well as Pepcid. She also is on numerous stool softeners because of chronic constipation. She has been taking some p.r.n. Zofran as well. She also states she takes some occasional Lasix for swelling of her legs. REVIEW OF SYSTEMS: As above, otherwise she denies any recent change in vision or hearing. She has had no seizures. She has had no change in mood. She denies any dysuria. She has had no productive cough. She denies any chest pains or palpitations. She has had no exertional shortness of breath. She denies any joint swelling. She denies any icterus or jaundice. She has had no rashes. She has had no alopecia or easy bruising. She denies any seizures. PHYSICAL EXAMINATION: GENERAL: Reveals a woman lying in bed watching TV. VITAL SIGNS: Her most recent temperature was 36.6, blood pressure is 99/60, pulse is 50. SKIN: Anicteric. EYES: Show anicteric sclerae. MOUTH: Clear lesions. NECK: Supple. LUNGS: Clear. HEART: Regular rate and rhythm. ABDOMEN: Benign. Good bowel sounds. No rebound tenderness. EXTREMITIES: Warm with good distal pulses. NEUROLOGIC: She is alert and oriented x3 and grossly intact. LABORATORY DATA: Show a lipase that was 3500 down to 526. AST was 473, ALT was 623, bilirubin was normal, alkaline phosphatase was normal. IMAGING DATA: CT of the abdomen and pelvis did not reveal any evidence of acute pancreatitis. There was some chronic mild intra and extrahepatic ductal dilatation which has been previously seen. IMPRESSION: A 76-year-old woman with elevated lipase, possibly representing pancreatitis but no pancreatitis on CAT scan and also transaminitis and pain. One thing I would recommend is that the patient did not take any more Lasix since Lasix has been linked to pancreatitis, even though this is p.r.n., I am wondering if this could be a possibility. The other thing would be important would be to check an MRI or an MRCP tomorrow, looking for bile duct stones and she should certainly follow up with Dr. Figueroa and Bonnie Terry, as an outpatient. Continue on her H2 autumn. I do not think an upper endoscopy is indicated at this point. MIGUEL
[2016-08-24] MEDS: ENOXAPARIN 40 MG/0.4 ML SYR SQ SCH (21:00)
[2016-08-25] VITALS: BP 120/74; PULSE 54; TEMP 36.8; O2SAT 95
[2016-08-25 05:49] VITALS: PULSE 74; O2SAT 98
[2016-08-25] MEDS: ALBUT/IPRATROP 3MG/0.5MG NEB 3 ML VIAL INH PRN (05:49)
[2016-08-25 05:56] LABS: BASO % 0.8 %; BASO ABS # 0.05 K/uL (0-0.2); COMPLETE YES; EOS % 5.1 %; HEMATOCRIT 33.5 % (37-47); IG% 0.2 %; LYMPH % 40.5 %; LYMPH ABS # 2.69 K/uL (1.2-3.4); MEAN CELL VOLUME 94.6 fL (80-100); MEAN CORPUSCULAR HEMOGLOBIN 31.4 pg (25-34); MEAN CORPUSCULAR HGB CONC 33.1 g/dl (32-36); MEAN PLATELET VOLUME 10.4 fL (7.4-10.4); MONO % 6.8 %; NEUT % 46.6 %; PLATELET COUNT 198 K/uL (130-400); RED BLOOD COUNT 3.54 M/uL (4.2-5.4); WHITE BLOOD COUNT 6.65 K/uL (4.8-10.8)
[2016-08-25 06:27] LABS: BUN/CREATININE RATIO 14.8 (10-20); CALCIUM 8.2 mg/dl (8.5-10.1); CREATININE 0.71 mg/dl (0.60-1.20); POTASSIUM 3.9 mmol/L (3.5-5.1)
[2016-08-25 06:30] LABS: ALB/GLOB RATIO 1.2 (0.9-2)
[2016-08-25] MEDS: SODIUM CHLORIDE 0.9% 1000ML 1,000 ML IV SCH (07:04)
[2016-08-25 07:33] VITALS: BP 111/65; PULSE 59; TEMP 36.5; O2SAT 96
[2016-08-25] MEDS: FAMOTIDINE IV INJ 20 MG in DEXTROSE 5% 100ML 100 ML IV SCH (09:39)
[2016-08-25] MEDS ORDERED: LORAZEPAM INJ 0.5 MG in SYRINGE 0.75 ML IV SCH (10:00)
[2016-08-25] MEDS ORDERED: ALUMINUM/MAGNESIUM/SIMETH (MAALOX MAX) 30 ML UDC PO ONE (10:00)
--- NOTE | 2016-08-25 11:32 | Gastroenterology Progress Note ---
Progress Note Date of Service: August 25, 2016 Subjective Pt evaluation today including: conversation w/ patient, physical exam, chart review, lab review, review of studies, review of inpatient medication list Pt laying comfortably in bed, denies anymore abd pain, n/v. Had BM yesterday. She is tolerating CL diet. LFTs noted to be decreasing, Lipase normal. Review of Systems Constitutional: No chills, No fever Respiratory: No cough, No shortness of breath Abdomen: No nausea, No pain, No vomiting Skin: No itch, No jaundice, No rash Medications Current Inpatient Medications Medications (Trade) Dose Ordered Sig/Azucena Route Start Time Stop Time Status Last Admin Dose Admin Enoxaparin Sodium (Lovenox Inj) 40 mg Q24H SQ 08/23/16 18:00 09/22/16 17:59 08/24/16 21:00 40 MG Ondansetron HCl 4 mg 4 mg Q6H PRN IV 08/23/16 15:15 09/22/16 15:14 08/23/16 16:48 4 MG Sodium Chloride (Nss 1000ml) 1,000 ml @ 50 mls/hr Q20H IV 08/23/16 15:30 09/22/16 15:29 08/25/16 07:04 50 MLS/HR Albuterol/ Ipratropium (Duoneb) 3 ml QIDR PRN INH 08/23/16 15:30 09/22/16 15:29 08/25/16 05:49 3 ML Ioversol (Optiray 320) 100 ml UD PRN IV 08/23/16 15:30 08/27/16 15:29 Oxycodone HCl 5 mg 5 mg Q6H PRN PO 08/24/16 10:15 09/07/16 10:14 08/25/16 01:10 5 MG Famotidine 20 mg/ Dextrose 102 ml @ 200 mls/hr Q12@1000,2200 IV 08/24/16 10:30 09/23/16 10:29 08/25/16 09:39 200 MLS/HR Lorazepam/Syringe (Ativan Inj/ Syringe) 1 ml @ 0.5 mls/min TODAY@1000 IV 08/25/16 10:00 08/25/16 18:00 08/25/16 10:26 0.5 MLS/MIN Objective Vital Signs Date Time Temp Pulse Resp B/P Pulse Ox O2 Delivery O2 Flow Rate FiO2 08/25/16 08:00 Room Air 08/25/16 07:33 36.5 59 16 111/65 96 Room Air 08/25/16 05:49 74 12 98 Room Air 08/25/16 00:00 Room Air 08/25/16 00:00 36.8 54 18 120/74 95 Room Air 08/24/16 16:12 95 Room Air 08/24/16 14:43 36.6 50 16 99/60 95 Room Air Physical Exam General Appearance: WD/WN, no apparent distress Eyes: normal inspection, PERRL, EOMI Neck: supple, no JVD, trachea midline Respiratory/Chest: normal breath sounds, no respiratory distress, no accessory muscle use Cardiovascular: regular rate, rhythm, no gallop, no murmur Abdomen: normal bowel sounds, non tender, soft Extremities: normal inspection, no pedal edema, no calf tenderness Neurologic/Psych: alert, normal mood/affect, oriented x 3 Skin: normal color, no jaundice, no rash Laboratory Results Last 24 Hours Test 08/24/16 11:32 08/24/16 16:03 08/24/16 19:49 08/25/16 00:08 Bedside Glucose 121 mg/dl 96 mg/dl Troponin I < 0.015 ng/ml < 0.015 ng/ml Test 08/25/16 05:26 08/25/16 05:58 White Blood Count 6.65 K/uL Red Blood Count 3.54 M/uL Hemoglobin 11.1 g/dL Hematocrit 33.5 % Mean Corpuscular Volume 94.6 fL Mean Corpuscular Hemoglobin 31.4 pg Mean Corpuscular Hemoglobin Concent 33.1 g/dl Platelet Count 198 K/uL Mean Platelet Volume 10.4 fL Neutrophils (%) (Auto) 46.6 % Lymphocytes (%) (Auto) 40.5 % Monocytes (%) (Auto) 6.8 % Eosinophils (%) (Auto) 5.1 % Basophils (%) (Auto) 0.8 % Neutrophils # (Auto) 3.11 K/uL Lymphocytes # (Auto) 2.69 K/uL Monocytes # (Auto) 0.45 K/uL Eosinophils # (Auto) 0.34 K/uL Basophils # (Auto) 0.05 K/uL RDW Standard Deviation 43.6 fL RDW Coefficient of Variation 12.5 % Immature Granulocyte % (Auto) 0.2 % Immature Granulocyte # (Auto) 0.01 K/uL Sodium Level 145 mmol/L Potassium Level 3.9 mmol/L Chloride Level 113 mmol/L Carbon Dioxide Level 27 mmol/L Anion Gap 5.0 mmol/L Blood Urea Nitrogen 11 mg/dl Creatinine 0.71 mg/dl Est Creatinine Clear Calc Drug Dose 86.5 ml/min Estimated GFR () 96.6 Estimated GFR (Non- 83.3 BUN/Creatinine Ratio 14.8 Random Glucose 105 mg/dl Calcium Level 8.2 mg/dl Total Bilirubin 0.4 mg/dl Aspartate Amino Transf (AST/SGOT) 195 U/L Alanine Aminotransferase (ALT/SGPT) 410 U/L Alkaline Phosphatase 108 U/L Total Protein 5.9 gm/dl Albumin 3.2 gm/dl Globulin 2.7 gm/dl Albumin/Globulin Ratio 1.2 Lipase 290 U/L Bedside Glucose 109 mg/dl Assessment and Plan Pt is a 76 y/o female admitted w abd pain, transaminitis and elevated Lipase ? pancreatitis related to Lasix use. She denies any hx of ETOH abuse, autoimmune pancreatitis. Hx of cholecystectomy for recurrent biliary sludge. She had her last EUS [place] [address] Figueroa. Her abd pain is resolved, also denies any n /v. LFTs decreasing, Lipase normalized. - Obtain MRCP to r/o biliary duct obstruction though suspect this may be less likely. If no signs of obstruction, will start advancing diet. - Follow LFTs. - If LFTs continue to improve, and she is tolerating diet advancement, may DC from GI standpoint. She can f/u at GI clinic w FRIEDA Mendez or Dr. Blair Figueroa.
--- NOTE | 2016-08-25 11:38 | DIAGNOSTIC IMAGING REPORT ---
MRCP CLINICAL HISTORY: Abdominal pain and elevated liver function tests. Evaluate for common bile duct calculus. COMPARISON STUDY: MRCP August 31, [address] of the abdomen and pelvis August 23, 2016. TECHNIQUE: Utilizing a 1.5 Ananya magnet and dedicated coil, multiplanar, multiecho imaging of the abdomen was performed utilizing heavily T2 weighted sequences. No intravenous contrast was administered. FINDINGS: Moderate biliary ductal dilatation is unchanged since CT of May 14, 2016 and only minimally increased since MRCP of August 31, 2012. This is likely related to prior cholecystectomy. No common bile duct calculi are identified. Coarse and caliber of the main pancreatic duct is normal. There is no peripancreatic infiltration or fluid. There may be trace perihepatic ascites. Unenhanced images of the spleen, adrenal glands and pancreas are normal. There is no abdominal lymphadenopathy. IMPRESSION: 1. No common bile duct calculi identified. No change in moderate biliary ductal dilatation likely related to prior cholecystectomy. 2. No peripancreatic infiltration or fluid. No pancreatic ductal dilatation. Electronically signed by: Doyle Vance M.D. 08/25/2016 11:36 AM Dictated Date/Time: 08/25/2016 11:30 AM
--- NOTE | 2016-08-25 11:43 | Progress Note ---
Internal Med Progress Note Date of Service: August 25, 2016. Provider Documentation: SUBJECTIVE: Seen and examined at bedside. States abd pain is better. Nausea, diarrhea resolved. States was SOB this morning which resolved after duoneb. Offers no other complaints. 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 ASSESSMENT & PLAN: Epigastric Abdominal Pain: Patient presents with nausea, abd pain, diarrhea ABD USD:Mild biliary ductal dilatation unchanged from Apr 2016, Mild dilatation of pancreatic duct Transaminitis likely secondary to meds (Takes 1000mg Tylenol daily at home) Lipase levels normalized CT abd: No signs of pancreatitis Continue IV fluids, Pain control Appreciate GI input Stool negative for C.diff Monitor LFTs EKG no signs of ischemia, Troponin X 2: Negative Avoids hepatotoxic meds Advance diet as tolerated MRCP: No CBD caliculi, No pancreatic ductal dilatation LFTs improving ? pancreatitis secondary to Lasix H/O Breast/Ovarian Cancer: S/P Hysterectomy, Oophorectomy and lumpectomy Previously followed with Currently not on any meds H/O GERD, Esophageal Ulcer IBS and Gastroparesis: Continue famotidine Monitor Chemotherapy induced Peripheral Neuropathy: Stable Currently not on any meds DVT Px: Lovenox SQ Code Status; Full Code Disposition: Plan to discharge home today if tolerates diet Follow up with on 08/31/16 at 12:55pm Follow up with your client care consultant FRIEDA Mendez or Dr. Blair Figueroa as advised PROCEDURES: MRCP: 1. No common bile duct calculi identified. No change in moderate biliary ductal dilatation likely related to prior cholecystectomy. 2. No peripancreatic infiltration or fluid. No pancreatic ductal dilatation. Vital Signs: Date Time Temp Pulse Resp B/P Pulse Ox O2 Delivery O2 Flow Rate FiO2 08/25/16 08:00 Room Air 08/25/16 07:33 36.5 59 16 111/65 96 Room Air 08/25/16 05:49 74 12 98 Room Air 08/25/16 00:00 Room Air 08/25/16 00:00 36.8 54 18 120/74 95 Room Air 08/24/16 16:12 95 Room Air 08/24/16 14:43 36.6 50 16 99/60 95 Room Air Lab Results: Results Past 24 Hours Test 08/24/16 16:03 08/24/16 19:49 08/25/16 00:08 08/25/16 05:26 Range/Units Troponin I < 0.015 < 0.015 0-0.045 ng/ml Bedside Glucose 96 70-90 mg/dl White Blood Count 6.65 4.8-10.8 K/uL Red Blood Count 3.54 4.2-5.4 M/uL Hemoglobin 11.1 12.0-16.0 g/dL Hematocrit 33.5 37-47 % Mean Corpuscular Volume 94.6 80-100 fL Mean Corpuscular Hemoglobin 31.4 25-34 pg Mean Corpuscular Hemoglobin Concent 33.1 32-36 g/dl Platelet Count 198 130-400 K/uL Mean Platelet Volume 10.4 7.4-10.4 fL Neutrophils (%) (Auto) 46.6 % Lymphocytes (%) (Auto) 40.5 % Monocytes (%) (Auto) 6.8 % Eosinophils (%) (Auto) 5.1 % Basophils (%) (Auto) 0.8 % Neutrophils # (Auto) 3.11 1.4-6.5 K/uL Lymphocytes # (Auto) 2.69 1.2-3.4 K/uL Monocytes # (Auto) 0.45 0.11-0.59 K/uL Eosinophils # (Auto) 0.34 0-0.5 K/uL Basophils # (Auto) 0.05 0-0.2 K/uL RDW Standard Deviation 43.6 36.4-46.3 fL RDW Coefficient of Variation 12.5 11.5-14.5 % Immature Granulocyte % (Auto) 0.2 % Immature Granulocyte # (Auto) 0.01 0.00-0.02 K/uL Sodium Level 145 136-145 mmol/L Potassium Level 3.9 3.5-5.1 mmol/L Chloride Level 113 98-107 mmol/L Carbon Dioxide Level 27 21-32 mmol/L Anion Gap 5.0 3-11 mmol/L Blood Urea Nitrogen 11 7-18 mg/dl Creatinine 0.71 0.60-1.20 mg/dl Est Creatinine Clear Calc Drug Dose 86.5 ml/min Estimated GFR () 96.6 Estimated GFR (Non- 83.3 BUN/Creatinine Ratio 14.8 10-20 Random Glucose 105 70-99 mg/dl Calcium Level 8.2 8.5-10.1 mg/dl Total Bilirubin 0.4 0.2-1 mg/dl Aspartate Amino Transf (AST/SGOT) 195 15-37 U/L Alanine Aminotransferase (ALT/SGPT) 410 12-78 U/L Alkaline Phosphatase 108 45-117 U/L Total Protein 5.9 6.4-8.2 gm/dl Albumin 3.2 3.4-5.0 gm/dl Globulin 2.7 2.5-4.0 gm/dl Albumin/Globulin Ratio 1.2 0.9-2 Lipase 290 73-393 U/L Test 08/25/16 05:58 Range/Units Bedside Glucose 109 70-90 mg/dl
--- NOTE | 2016-08-25 12:10 | Discharge Summary ---
Discharge Summary Date of Service August 25, 2016. Discharge Summary Admission Date: August 23, 2016 at 15:18 Discharge Date: August 25, 2016 Discharge Disposition: Home Principal Diagnosis: Abdominal Pain: ? Pancreatitis due to Lasix/Secondary to GERD Procedures: MRCP: 1. No common bile duct calculi identified. No change in moderate biliary ductal dilatation likely related to prior cholecystectomy. 2. No peripancreatic infiltration or fluid. No pancreatic ductal dilatation. CT ABD; 1. No CT evidence for acute pancreatitis. 2. Mild to moderate intra and extra hepatic bile duct dilatation, unchanged. This is likely due to the patient's postcholecystectomy state. 3. No bowel wall thickening or obstruction. ABD USD: 1. Mild biliary ductal dilatation which is similar to CT of May 14, 2016. This is likely related to prior cholecystectomy although recommend correlation with obstructive liver function tests. 2. Mild dilatation of the main pancreatic duct, a nonspecific finding. No mass identified by sonography although the pancreas is partially obscured and suboptimally assessed by sonography. Consultations: GI Pending Studies/Follow-Up: Follow up with on 08/31/16 at 12:55pm Follow up with your ramp service agent FRIEDA Mendez or Dr. Blair Figueroa as advised Medication Reconciliation Continued Medications: Albuterol Hfa (Ventolin Hfa) 200 Puffs/29747 Mcg Aers 2-4 PUFFS INH Q6H, #1 INHALER Alpha-Lipoic Acid (Thioctic Ac (Alpha Lipoic Acid) 600 Mg Cap 600 MG PO Alum & Mag Hydrox-Simethicone (Mylanta) 1 Ny Ny 1 DOSE PO UD PRN for Indigestion OTC DIRECTIONS Artificial Tear Solution (Artificial Tears) 1 Khushi Khushi 1 DROPS OP QID, #15 ML 5 Refills Ascorbic Acid (Ascorbic Acid) 1,000 Mg Tab 1000 MG PO ON HOLD Aspirin (Aspirin Ec) 325 Mg Tab 1-2 TAB PO Q6 PRN for Pain Jaqhetx-Hifsnihgmirwn-Qppqspyd (Excedrin Extra Strength) 1 Tab Tab 1-2 TABS PO UD PRN for Pain Astaxanthin (Astaxanthin) 4 Mg Cap 4 MG PO ON HOLD B-Complex W/Biotin & Folic Aci (Vitamin B50 Complex Tr) 1 Tab Tab 1 TAB PO Cholecalciferol (Vitamin D3) 2,000 Unit Cap 2000 UNITS PO Coenzyme Q10 (Ubidecarenone) (Co Q-10) 200 Mg Cap 200 MG PO ON HOLD Famotidine (Pepcid) 20 Mg Tab 20 MG PO HS Furosemide (Furosemide) 20 Mg Tab 20 MG PO PRN for swelling of legs Goldenseal (Hydrastis Canadens (Penaloza Seal) 500 Mg Cap Unknown Dose PO L-Methylfolate W/ Algae-Vitami (Metanx) 1 Cap Cap 3 MG PO ON HOLD Lidocaine Hcl (Mouth-Throat) (Lidocaine Viscous) 2 % Khushi 2 % MT QID PRN for SORE THROAT, BTL Loperamide Hcl (Imodium) 2 Mg Cap 2 MG PO UD PRN for Diarrhea for 5 Days, CAP take 1 cap after each loose bowel movement as needed (may use maximum of 8 caps in one day) Magnesium Oxide (Magnesium) 250 Mg Tab 500 MG PO ON HOLD Melatonin-Pyridoxine (Melatonin) 1 Tab Tab 1-3 MG PO HS Menaquinone-7 (Vitamin K2) 100 Mcg Cap 200 MCG PO Milk Thistle (Silybum Marianum (Milk Thistle) 200 Mg Cap 200 MG PO ON HOLD Multivitamin (Multivitamin) Tab 1 TAB PO ON HOLD Nepafenac (Ilevro) 0.3 % Jhoan [place]-3 Fatty Acids ([place] 3) 1 Cap Cap 1000 MG PO ON HOLD Ondansetron Hcl (Zofran) 4 Mg Tab 4 MG PO Q6 PRN for Nausea, TAB Eqyvlkvwrqjog-Avkisvmnrx-Cjjmx (Nyquil Severe Cold/Flu 5-6.25-10-325 mg/15Ml) 1 Liq Liq 1 DOSE PO HS PRN for COLD SYMPTOMS Polyethylene Glycol 3350 (Miralax) 1 Pow Pow 17 GM PO UD PRN for Constipation Prednisolone Acetate (Ophth) (Pred Forte 1% Oph) 1 % Ny 1 DROPS OPL QID, #5 ML Prune Juice (Prune Juice ) Liqd 4 OZ PO PRN for Constipation Selenium-Yeast (Selenium) 1 Tab Tab 3 MG PO ON HOLD Simethicone (Simethicone) 125 Mg Cap 1 TAB PO Soybean Lecithin (Bulk) (Lecithin) 1 Gra Gra 1 GM PO ON HOLD Tocopheryl Acet,Dl-Alpha (Vitamin E/Dl-Alpha) 400 Unit Cap 1 CAP PO DAILY Vitamin A-Beta Carotene (Vitamin A) 1 Tab Tab 8000 MG PO [zinc and copper] () 1 TAB PO Discontinued Medications: Acetaminophen (Tylenol) 500 Mg Tab 1000 MG PO HS PRN for Pain, TAB Admission Information HPI (per Admitting provider): Patient is a 76 Yr old female with PMH of Breast cancer, Ovarian cancer, Melanoma, Basal cell Cancer, Prediabetes, Chemotherapy induced peripheral neuropathy, IBS, Gastroparesis, GERD, Esophageal ulcer and other problems presents with history of nausea, epigastric abdominal pain and diarrhea since one day duration. She states epigastric abdominal pain is intermittent, non radiating, burning like pain which is unrelieved with Famotidine, Mylanta. She states famotidine made the pain worse. Also reports loose watery, non bloody diarrhea associated with nausea and chills but no vomiting. Also denies any SOB , fever, recent travel, urinary symptoms. Reports having food at a farm yesterday and her friend had similar symptoms. Reports used Goldenseal root yesterday but no recent antibiotic use. Last endoscopy was about 1 yr ago. Physical Exam (per Admitting): General Appearance: WD/WN, no apparent distress Head: normocephalic, atraumatic Eyes: normal inspection, PERRL, EOMI ENT: normal ENT inspection, hearing grossly normal Neck: supple, trachea midline Respiratory/Chest: chest non-tender, lungs clear, normal breath sounds, no respiratory distress, no accessory muscle use Cardiovascular: regular rate, rhythm, no edema, no murmur Abdomen/GI: normal bowel sounds, soft, + pertinent finding (+Tenderness predominantly epigastric region, no guarding/rigidity ) Back: normal inspection Extremities/Musculoskelatal: normal inspection, no pedal edema 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, no motor/sensory deficits, alert , oriented x 3 Skin: normal color, warm/dry Hospital Course Epigastric Abdominal Pain: Patient presents with nausea, abd pain, diarrhea ABD USD:Mild biliary ductal dilatation unchanged from Apr 2016, Mild dilatation of pancreatic duct Transaminitis likely secondary to meds (Takes 1000mg Tylenol daily at home) Lipase levels normalized CT abd: No signs of pancreatitis Continue IV fluids, Pain control Appreciate GI input Stool negative for C.diff Monitor LFTs EKG no signs of ischemia, Troponin X 2: Negative Avoids hepatotoxic meds Advance diet as tolerated MRCP: No CBD caliculi, No pancreatic ductal dilatation LFTs improving ? pancreatitis secondary to Lasix H/O Breast/Ovarian Cancer: S/P Hysterectomy, Oophorectomy and lumpectomy Previously followed with Currently not on any meds H/O GERD, Esophageal Ulcer IBS and Gastroparesis: Continue famotidine Monitor Chemotherapy induced Peripheral Neuropathy: Stable Currently not on any meds DVT Px: Lovenox SQ Code Status; Full Code Disposition: Plan to discharge home today if tolerates diet Follow up with on 08/31/16 at 12:55pm Follow up with your ramp service agent FRIEDA Mendez or Dr. Blair Figueroa as advised PROCEDURES: MRCP: 1. No common bile duct calculi identified. No change in moderate biliary ductal dilatation likely related to prior cholecystectomy. 2. No peripancreatic infiltration or fluid. No pancreatic ductal dilatation. Total time spent on discharge = 32 minutes This includes examination of the patient, discharge planning, medication reconciliation, and communication with other providers. Discharge Instructions Discharge Instructions Date of Service August 25, 2016. Admission Reason for Admission: Abdominal Pain Discharge Discharge Diagnosis / Problem: Abdominal Pain: ? Pancreatitis due to Lasix/ Secondary to GERD Discharge Goals Goal(s): Decrease discomfort, Improve function Activity Recommendations Activity Limitations: resume your previous activity Exercise/Sports Limitations: as tolerated . Instructions / Follow-Up Instructions / Follow-Up Follow up with on 08/31/16 at 12:55pm Follow up with your ramp service agent FRIEDA Mendez or Dr. Blair Figueroa as advised Current Hospital Diet Patient's current hospital diet: Clear Liquid Diet Discharge Diet Recommended Diet: AHA Diet (Heart Healthy), Low Fat Diet Pending Studies Studies pending at discharge: no Medical Emergencies . Who to Call and When: Medical Emergencies: If at any time you feel your situation is an emergency, please call 911 immediately. . Non-Emergent Contact Non-Emergency issues call your: Primary Care Provider, Rouge Mixer Call Non-Emergent contact if: you have a fever, your pain is not controlled, your pain is worsening, your pain is unusual for you, you have any medication questions . . "Provider Documentation" section prepared by Stevo Leslie. . VTE Core Measure Inpt VTE Proph given/why not?: Enoxaparin (Lovenox)SQ
[2016-08-25 15:05] VITALS: BP 133/67; PULSE 72; TEMP 37.4; O2SAT 94
[2016-09-14] MEDS ORDERED: ASCO100061 PO (09:31)
[2016-09-14] MEDS ORDERED: ALPH600C2 PO (09:31)
[2016-09-14] MEDS ORDERED: LSX20 PO (09:31)
[2016-09-14] MEDS ORDERED: ASTA1CAP PO (09:31)
[2016-09-14] MEDS ORDERED: PHEN-905 PO (10:48)
[2017-02-09] MEDS ORDERED: POLY335025 PO (03:13)
[2017-02-09] MEDS ORDERED: ALUM-30 PO (03:18)
[2017-02-09] MEDS ORDERED: FAMO20TA11 PO (03:18)
[2017-02-09] MEDS ORDERED: MENA1CAP PO (09:31)
[2017-02-09] MEDS ORDERED: SELE1TAB5 PO (09:31)
[2017-02-09] MEDS ORDERED: L-ME1CAP3 PO (09:31)
[2017-02-09] MEDS ORDERED: COEN1CAP37 PO (09:31)
[2017-02-09] MEDS ORDERED: PRNJ PO (09:31)
[2017-02-09] MEDS ORDERED: SOYBGRA9 PO (09:31)
[2017-02-09] MEDS ORDERED: VITATAB19 PO (09:31)
[2017-02-09] MEDS ORDERED: MILK200C PO (09:31)
[2017-02-09] MEDS ORDERED: MULT-506 PO (09:31)
[2017-02-09] MEDS ORDERED: OMEG12006 PO (09:31)
[2017-02-09] MEDS ORDERED: ARTISOL12 OP (10:31)
[2017-02-09] MEDS ORDERED: VTME400 PO (10:31)
[2017-02-09] MEDS ORDERED: VNTHFA/IN INH (10:31)
[2017-02-09] MEDS ORDERED: COPPER PO (10:44)
[2017-02-09] MEDS ORDERED: SIME1CAP28 PO (10:44)
[2017-02-09] MEDS ORDERED: B-CO1TAB21 PO (10:44)
[2017-02-09] MEDS ORDERED: ZINC PO (10:44)
[2017-02-09] MEDS ORDERED: ONDA4TAB46 PO (15:16)
[2017-02-09] MEDS ORDERED: ASPI325T39 PO (15:16)
== END 2016-08-25 17:00 | disposition home or self-care (01) | DRG 391 ==
LOC: CANRESERV → ENRESERVTM → ENRESERVDT → C.EDB 11:25 → C.MS2W 15:18
PROVIDERS: ADMIT Internal Medicine; ATTEND Internal Medicine
DX: R10.13 Epigastric pain (principal); K85.30 Drug induced acute pancreatitis without necrosis or infection; K22.10 Ulcer of esophagus without bleeding; T50.1X5A Adverse effect of loop [high-ceiling] diuretics, initial encounter; K21.9 Gastro-esophageal reflux disease without esophagitis; R74.0 Nonspecific elevation of levels of transaminase and lactic acid dehydrogenase [LDH]; T39.1X5A Adverse effect of 4-Aminophenol derivatives, initial encounter; R06.02 Shortness of breath; K59.09 Other constipation; K58.9 Irritable bowel syndrome, unspecified; K31.84 Gastroparesis; J45.909 Unspecified asthma, uncomplicated; R73.03 Prediabetes; Z90.49 Acquired absence of other specified parts of digestive tract; Z79.899 Other long term (current) drug therapy

== ENCOUNTER 2016-09-14 21:25 | Emergency (ER) | payer OTHER, MEDICARE ==
[~2016-09-14] VITALS: Ht 190.5 cm; Wt 91.0 kg
[~2016-09-14 21:25] MED LIST changes: -ACET-1256 PO; +ALPH600C2 PO; +ASCO100061 PO; +ASTA1CAP PO; -CIPROFLOXACIN; -LEVO25TA PO; +LSX20 PO; +PHEN-905 PO
[2016-09-14 21:29] VITALS: TEMP 36.6; Ht 190.5 cm; Wt 91.0 kg
[2016-09-14] MEDS ORDERED: MoRPHine SULFATE 4 MG/ML 1 ML CARP\\VIAL IV STA ×2 (21:53→23:24)
[2016-09-14] MEDS ORDERED: ONDANSETRON INJ 2 MG/ML 2 ML VIAL IV STA (21:53)
[2016-09-14] MEDS ORDERED: SODIUM CHLORIDE 0.9% 1000ML 1,000 ML IV STA (21:53)
[2016-09-14 22:05] LABS: BASO % 1.3 %; COMPLETE YES; EOS % 5.5 %; IG% 0.1 %; LYMPH % 43.8 %; LYMPH ABS # 3.26 K/uL (1.2-3.4); MEAN CORPUSCULAR HEMOGLOBIN 30.5 pg (25-34); MEAN CORPUSCULAR HGB CONC 33.2 g/dl (32-36); MEAN PLATELET VOLUME 10.5 fL (7.4-10.4); MONO % 6.9 %; NEUT % 42.4 %; PLATELET COUNT 264 K/uL (130-400); RED BLOOD COUNT 4.13 M/uL (4.2-5.4); WHITE BLOOD COUNT 7.44 K/uL (4.8-10.8)
[2016-09-14 22:21] LABS: ALT/SGPT 31 U/L (12-78); BLOOD UREA NITROGEN 18 mg/dl (7-18); BUN/CREATININE RATIO 18.6 (10-20); CARBON DIOXIDE 24 mmol/L (21-32); CHLORIDE 110 mmol/L (98-107); CREATININE 0.94 mg/dl (0.60-1.20); GLUCOSE 91 mg/dl (70-99); POTASSIUM 4.2 mmol/L (3.5-5.1); SODIUM 142 mmol/L (136-145)
[2016-09-14 22:26] LABS: ALKALINE PHOSPHATASE 77 U/L (45-117); AST/SGOT 24 U/L (15-37)
--- NOTE | 2016-09-14 22:44 | DIAGNOSTIC IMAGING REPORT ---
ABDOMEN 2VIEW W/PA CHEST RTN CLINICAL HISTORY: abd pain, nausea COMPARISON STUDY: Chest x-ray dated 08/15/2016, abdominal series dated 07/22/2015 FINDINGS: The heart is borderline enlarged. There is no focal pulmonary consolidation. There is no free intraperitoneal air. There are surgical clips in the left axillary region.] Supine views the abdomen reveal surgical clips within the right upper quadrant consistent with a prior cholecystectomy. There is scattered stool throughout the colon. There are no transition zones indicate bowel obstruction. IMPRESSION: 1. No evidence of bowel obstruction. No evidence of free air 2. Mild to moderate stool within the colon Electronically signed by: Vincent Lezama M.D. 09/14/2016 10:43 PM Dictated Date/Time: 09/14/2016 10:41 PM
[2016-09-14] MEDS ORDERED: ALUMINUM/MAGNESIUM SUSP 30 ML UDC PO STA (22:48)
[2016-09-14 23:07] LABS: CALCIUM 8.8 mg/dl (8.5-10.1)
--- NOTE | 2016-09-14 23:51 | EMERGENCY ROOM VISIT NOTE ---
History First contact with patient: 21:39 Chief Complaint: GI ASSESSMENT Stated Complaint: POSSIBLE PANCREATITIS ATTACK,PAIN/NAUSEA Nursing Triage Summary: pt reports hx of pancreatitis reports increased abdominal pain with diarrhea X 2 days , attempted to use clear liquids with no relief History of Present Illness The patient is a 76 year old female who presents to the Emergency Room with complaints of abdominal pain which began earlier today. The patient states that she has had 3 episodes of similar symptoms in the past several months. She states that 3 weeks ago, she had similar symptoms and was admitted for pancreatitis. She has a previous cholecystectomy. She states that today, she initially had a mild sore throat and thought it may be due to GERD. She states that her symptoms progressed to abdominal pain and diarrhea. She switched her diet to liquids and try to eat some soup broth but states this worsened symptoms. She took pain medication around 1400 but states that when this were off, her pain returned. The patient has a history of breast cancer and ovarian cancer and neuropathy secondary to chemotherapy. She reports she is prediabetic. She takes Mylanta at home for her symptoms and takes multiple over -the-counter supplements and vitamins. She rates her overall discomfort a 7.5/ 10. She denies any nausea/vomiting, fevers or urinary symptoms. She denies any chest pain or shortness of breath. Review of Systems A complete 10 point review of systems was reviewed with the patient with pertinent positives and negatives as per history of present illness. All else were negative. 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 (11) Osteoporosis (12) Pancreatitis (13) Peripheral neuropathy (14) Sciatica (15) UNSPEC CONSTIPATION Surgical Problems: (1) History of appendectomy (2) History of cholecystectomy (3) History of colonoscopy Family History Diabetes mellitus FHx: cancer FHx: heart disease FHx: lung disease Hypertension Kidney disease Social History Smoking Status: Never Smoker Alcohol Use: occasionally Drug Use: none Marital Status: Housing Status: lives with family Occupation Status: retired Current/Historical Medications Scheduled Albuterol Hfa (Ventolin Hfa), 2-4 PUFFS INH Q6H Alpha-Lipoic Acid (Thioctic Ac (Alpha Lipoic Acid), 600 MG PO QPM Ascorbic Acid (Ascorbic Acid), 1,000 MG PO ON HOLD Astaxanthin (Astaxanthin), 4 MG PO ON HOLD B-Complex W/Biotin & Folic Aci (Vitamin B50 Complex Tr), 1 TAB PO DAILY Cholecalciferol (Vitamin D3), 2,000 UNITS PO DAILY Coenzyme Q10 (Ubidecarenone) (Co Q-10), 200 MG PO DAILY Famotidine (Pepcid), 20 MG PO HS Goldenseal (Hydrastis Canadens (Penaloza Seal), 1 TAB PO PRN L-Methylfolate W/ Algae-Vitami (Metanx), 3 MG PO ON HOLD Magnesium Oxide (Magnesium), 500 MG PO DAILY Melatonin-Pyridoxine (Melatonin), 1-3 MG PO HS Menaquinone-7 (Vitamin K2), 200 MCG PO DAILY Milk Thistle (Silybum Marianum (Milk Thistle), 200 MG PO DAILY Multivitamin (Multivitamin), 1 TAB PO ON HOLD Frohna-3 Fatty Acids (Frohna 3), 1,000 MG PO ON HOLD Selenium-Yeast (Selenium), 3 MG PO ON HOLD Simethicone (Simethicone), 1 TAB PO PRN Soybean Lecithin (Bulk) (Lecithin), 1 GM PO ON HOLD Tocopheryl Acet,Dl-Alpha (Vitamin E/Dl-Alpha), 1 CAP PO 3-5XSWEEK Vitamin A-Beta Carotene (Vitamin A), 8,000 MG PO DAILY Scheduled PRN Alum & Mag Hydrox-Simethicone (Mylanta), 1 DOSE PO UD PRN for Indigestion Artificial Tear Solution (Artificial Tears), 1 DROPS OP QID PRN for DRYNESS Aspirin (Aspirin Ec), 1-2 TAB PO Q6 PRN for Pain Llzsjze-Xjyasfahkihqu-Ftmtbhpc (Excedrin Extra Strength), 1-2 TABS PO UD PRN for Pain Furosemide (Furosemide), 20 MG PO PRN PRN for swelling of legs Lidocaine Hcl (Mouth-Throat) (Lidocaine Viscous), 2 % MT QID PRN for SORE THROAT Loperamide Hcl (Imodium), 2 MG PO UD PRN for Diarrhea Ondansetron Hcl (Zofran), 4 MG PO Q6 PRN for Nausea Pgpldnvxnevpv-Jgmfrnauch-Lfiwp (Nyquil Severe Cold/Flu 5-6.25-10-325 mg/15Ml), 1 DOSE PO HS PRN for COLD SYMPTOMS Polyethylene Glycol 3350 (Miralax), 17 GM PO UD PRN for Constipation Prune Juice (Prune Juice ), 4 OZ PO for Constipation Miscellaneous Medications [zinc and copper], 1 TAB PO Allergies Coded Allergies: Statins (Verified Allergy, Intermediate, MUSCLE WEAKNESS, 08/23/16) Tramadol (Verified Allergy, Intermediate, SOB, CHEST PAIN, 08/23/16) HAS TOLERATED MORPHINE Ibandronic Acid (Verified Allergy, Mild, GERD, 08/23/16) Carbamazepine (Verified Allergy, Unknown, pancreatitis, 08/23/16) Proton Pump Inhibitors (Verified Allergy, Unknown, UNKNOWN, 08/23/16) Morphine (Verified Adverse Reaction, Intermediate, GI SYMPTOMS, 08/23/16) PER PATIENT, DRIP OKAY - "NOT PUSHED" Epinephrine (Verified Adverse Reaction, Unknown, DIZZINESS, 08/23/16) Physical Exam Vital Signs Date Time Temp Pulse Resp B/P (MAP) Pulse Ox O2 Delivery O2 Flow Rate FiO2 09/15/16 00:40 82 18 123/56 99 Room Air 09/14/16 22:44 58 18 112/69 98 Room Air 09/14/16 21:29 36.6 68 17 122/77 94 Room Air Physical Exam VITALS: Vitals are noted on the nurse's note and reviewed by myself. Vital signs stable. GENERAL: This is a 76-year-old female, in no acute distress, nondiaphoretic, well-developed well-nourished. SKIN: Capillary reflex less than 2 seconds. HEENT: Normocephalic. PERRLA. EOMI. Nares patent. Mucous membranes moist. Neck is supple without nuchal rigidity. HEART: Regular rate and rhythm without murmurs gallops or rubs. LUNGS: Clear to auscultation bilaterally without wheezes, rales or rhonchi. ABDOMEN: Positive bowel sounds x 4. Soft, no tenderness to palpation. No masses or organomegaly. NEURO: Patient was alert and oriented to person place and time. Medical Decision & Procedures ER Provider Diagnostic Interpretation: ABDOMEN 2VIEW W/PA CHEST RTN CLINICAL HISTORY: abd pain, nausea COMPARISON STUDY: Chest x-ray dated 08/15/2016, abdominal series dated 07/22/2015 FINDINGS: The heart is borderline enlarged. There is no focal pulmonary consolidation. There is no free intraperitoneal air. There are surgical clips in the left axillary region.] Supine views the abdomen reveal surgical clips within the right upper quadrant consistent with a prior cholecystectomy. There is scattered stool throughout the colon. There are no transition zones indicate bowel obstruction. IMPRESSION: 1. No evidence of bowel obstruction. No evidence of free air 2. Mild to moderate stool within the colon Laboratory Results 09/14/16 21:59 Red Blood Count 4.13, Mean Corpuscular Volume 92.0, Mean Corpuscular Hemoglobin 30.5, Mean Corpuscular Hemoglobin Concent 33.2, Mean Platelet Volume 10.5, Neutrophils (%) (Auto) 42.4, Lymphocytes (%) (Auto) 43.8, Monocytes (%) (Auto) 6.9, Eosinophils (%) (Auto) 5.5, Basophils (%) (Auto) 1.3, Neutrophils # (Auto) 3.15, Lymphocytes # (Auto) 3.26, Monocytes # (Auto) 0.51, Eosinophils # (Auto) 0.41, Basophils # (Auto) 0.10 09/14/16 21:59 Test 09/14/16 21:59 White Blood Count 7.44 K/uL (4.8-10.8) Red Blood Count 4.13 M/uL (4.2-5.4) Hemoglobin 12.6 g/dL (12.0-16.0) Hematocrit 38.0 % (37-47) Mean Corpuscular Volume 92.0 fL (80-100) Mean Corpuscular Hemoglobin 30.5 pg (25-34) Mean Corpuscular Hemoglobin Concent 33.2 g/dl (32-36) Platelet Count 264 K/uL (130-400) Mean Platelet Volume 10.5 fL (7.4-10.4) Neutrophils (%) (Auto) 42.4 % Lymphocytes (%) (Auto) 43.8 % Monocytes (%) (Auto) 6.9 % Eosinophils (%) (Auto) 5.5 % Basophils (%) (Auto) 1.3 % Neutrophils # (Auto) 3.15 K/uL (1.4-6.5) Lymphocytes # (Auto) 3.26 K/uL (1.2-3.4) Monocytes # (Auto) 0.51 K/uL (0.11-0.59) Eosinophils # (Auto) 0.41 K/uL (0-0.5) Basophils # (Auto) 0.10 K/uL (0-0.2) RDW Standard Deviation 41.4 fL (36.4-46.3) RDW Coefficient of Variation 12.2 % (11.5-14.5) Immature Granulocyte % (Auto) 0.1 % Immature Granulocyte # (Auto) 0.01 K/uL (0.00-0.02) Anion Gap 8.0 mmol/L (3-11) Est Creatinine Clear Calc Drug Dose 65.3 ml/min Estimated GFR () 68.8 Estimated GFR (Non- 59.3 BUN/Creatinine Ratio 18.6 (10-20) Calcium Level 8.8 mg/dl (8.5-10.1) Total Bilirubin 0.2 mg/dl (0.2-1) Aspartate Amino Transf (AST/SGOT) 24 U/L (15-37) Alanine Aminotransferase (ALT/SGPT) 31 U/L (12-78) Alkaline Phosphatase 77 U/L (45-117) Troponin I < 0.015 ng/ml (0-0.045) Total Protein 7.2 gm/dl (6.4-8.2) Albumin 3.6 gm/dl (3.4-5.0) Globulin 3.6 gm/dl (2.5-4.0) Albumin/Globulin Ratio 1.0 (0.9-2) Lipase 282 U/L (73-393) Medications Administered Medications (Trade) Dose Ordered Sig/Azucena Route Start Time Stop Time Status Last Admin Dose Admin Sodium Chloride 1,000 ml @ 999 mls/hr Q1H1M STAT IV 09/14/16 21:53 09/14/16 22:53 DC 09/14/16 22:05 999 MLS/HR Morphine Sulfate (MoRPHine SULFATE INJ) 4 mg NOW STAT IV 09/14/16 21:53 09/14/16 21:56 DC 09/14/16 22:05 4 MG Ondansetron HCl (Zofran Inj) 4 mg NOW STAT IV 09/14/16 21:53 09/14/16 21:56 DC 6/19/17 22:05 4 MG Al Hydroxide/Mg Hydroxide (Maalox Susp) 30 ml NOW STAT PO 09/14/16 22:48 09/14/16 22:49 DC 09/14/16 22:59 30 ML Morphine Sulfate (MoRPHine SULFATE INJ) 4 mg NOW STAT IV 09/14/16 23:24 09/14/16 23:26 DC 09/14/16 23:35 4 MG Lidocaine HCl (Viscous Lidocaine 2% Soln) 10 ml NOW STAT MT 09/15/16 00:34 09/15/16 00:36 DC 09/15/16 01:00 10 ML Famotidine (Pepcid Tab) 20 mg NOW ONCE PO 09/15/16 00:45 09/15/16 00:46 DC 09/15/16 01:00 20 MG ED Course The patient was evaluated as above. Labs were drawn and IV access was obtained. Patient was medicated with 1 L normal saline solution, 4 mg morphine and 4 mg Zofran. Patient was reevaluated and was sleeping. She did state that she had continued pain and an additional 4 mg morphine was ordered. She also requested Maalox and this was ordered. Findings were discussed. The patient will be discharged home. She was given a dose of Pepcid and viscous lidocaine. Discharge instructions were reviewed with the patient. The patient verbalized understanding of my assessment and treatment plan and was discharged home in good condition. Medical Decision Differential diagnosis includes bowel obstruction, cholecystitis, colitis, gastroenteritis, pancreatitis, diverticulitis, among others. The patient is a 76-year-old female who presents today complaining of abdominal pain. I did review the EMR. The patient has been admitted here recently for similar symptoms. At that time, she did have an elevation of lipase and LFTs. An MRCP was done as an inpatient and was unremarkable. The patient is following up with GI as an outpatient. Labs today revealed no leukocytosis, anemia or concerning electrolyte abnormalities. Lipase was within normal limits. LFTs were within normal limits. The patient is well-appearing and has no significant tenderness on exam. She would like to be discharged home and I do think this is reasonable. She was instructed to follow-up with her primary care provider and port warden tomorrow. The patient was independently evaluated by Dr. Marie, ED attending physician, who agreed with my assessment and treatment plan. Based on the patient's presentation and work up, I feel the patient is stable for outpatient treatment. The patient was educated to return to the emergency department for any worsening of their current condition or new/concerning symptoms. She will follow up with her PCP and GI. Medication reconciliation: I attest that I have personally reviewed the patient 's current medication list. Blood pressure screening: Patient was found to have normal blood pressure on screening and does not require follow-up. Impression Primary Impression: Generalized abdominal pain Departure Information Dispostion Home / Self-Care Condition GOOD Referrals Yohannes Morelos M.D.([facility]) (PCP) Patient Instructions My [facility] Additional Instructions Continue your medications at home as needed for the abdominal pain. Call your primary care provider tomorrow to schedule a follow-up appointment within 48 hours. Return to the emergency department for any worsening or new/concerning symptoms.
[2016-09-15] MEDS ORDERED: LIDOCAINE HCL 2% VISC SOLN 20 ML UDC MT STA (00:34)
[2016-09-15 00:40] VITALS: BP 123/56; PULSE 82; O2SAT 99
[2016-09-15] MEDS ORDERED: FAMOTIDINE 20 MG TAB PO ONE (00:45)
--- NOTE | 2016-09-15 01:27 | EMERGENCY ROOM VISIT NOTE ---
ED Visit Note First contact with patient: 21:39 I have personally evaluated this patient examined her and reviewed the pertinent labs and data. I have discussed the case with Shannon Arita, the physician assistant warehouse manager and agree with the plan. Please refer to the PA note. This patient has epigastric abdominal pain. EKG is unremarkable. She's had this as an ongoing problem . Her lipase does not suggest pancreatitis. Her blood work is unremarkable. She was given Maalox and viscous lidocaine as well as Pepcid. I talked to her at length. She strongly desires to go home this is no worked up recently for similar complaints and do think is reasonable with follow-up with her regular doctor. She will be discharged home. I did encourage her return ER if: Increasing pain, worsening of symptoms, fever or chills, any new problems or concerns
[2017-02-09] MEDS ORDERED: POLY335025 PO (03:13)
[2017-02-09] MEDS ORDERED: FAMO20TA11 PO (03:18)
[2017-02-09] MEDS ORDERED: ALUM-30 PO (03:18)
[2017-02-09] MEDS ORDERED: SELE1TAB5 PO (09:31)
[2017-02-09] MEDS ORDERED: MENA1CAP PO (09:31)
[2017-02-09] MEDS ORDERED: PRNJ PO (09:31)
[2017-02-09] MEDS ORDERED: MILK200C PO (09:31)
[2017-02-09] MEDS ORDERED: COEN1CAP37 PO (09:31)
[2017-02-09] MEDS ORDERED: SOYBGRA9 PO (09:31)
[2017-02-09] MEDS ORDERED: L-ME1CAP3 PO (09:31)
[2017-02-09] MEDS ORDERED: OMEG12006 PO (09:31)
[2017-02-09] MEDS ORDERED: VITATAB19 PO (09:31)
[2017-02-09] MEDS ORDERED: MULT-506 PO (09:31)
[2017-02-09] MEDS ORDERED: VTME400 PO (10:31)
[2017-02-09] MEDS ORDERED: ARTISOL12 OP (10:31)
[2017-02-09] MEDS ORDERED: VNTHFA/IN INH (10:31)
[2017-02-09] MEDS ORDERED: COPPER PO (10:44)
[2017-02-09] MEDS ORDERED: ZINC PO (10:44)
[2017-02-09] MEDS ORDERED: SIME1CAP28 PO (10:44)
[2017-02-09] MEDS ORDERED: B-CO1TAB21 PO (10:44)
[2017-02-09] MEDS ORDERED: ONDA4TAB46 PO (15:16)
[2017-02-09] MEDS ORDERED: ASPI325T39 PO (15:16)
== END 2016-09-15 01:05 | disposition home or self-care (01) ==
LOC: C.EDB 21:26 → C.EDA 09-15 01:05
DX: R10.84 Generalized abdominal pain (principal); I70.90 Unspecified atherosclerosis; J45.909 Unspecified asthma, uncomplicated; K21.9 Gastro-esophageal reflux disease without esophagitis; K58.9 Irritable bowel syndrome, unspecified; G60.9 Hereditary and idiopathic neuropathy, unspecified; C56.9 Malignant neoplasm of unspecified ovary; C50.419 Malignant neoplasm of upper-outer quadrant of unspecified female breast; M81.0 Age-related osteoporosis without current pathological fracture; Z83.3 Family history of diabetes mellitus; Z82.49 Family history of ischemic heart disease and other diseases of the circulatory system

== ENCOUNTER → 2016-10-29 | Outpatient (CLI) | payer OTHER, MEDICARE ==
[~2016-10-29] MED LIST changes: +ALUM-30 PO; +ARTISOL12 OP; +ASPI-391 PO; +ASPI325T39 PO; +B-CO1TAB21 PO; +CHOL2000 PO; +COEN1CAP37 PO; +COPPER PO; +FAMO20TA11 PO; +L-ME1CAP3 PO; +LIDO2SOL19 MT; +MENA1CAP PO; +MILK200C PO; +MULT-506 PO; -NEPA0.6D; +OMEG12006 PO; +ONDA4TAB46 PO; +POLY335025 PO; -PRED1SUS3 OPL; +PRNJ PO; +SELE1TAB5 PO; +SIME1CAP28 PO; +SOYBGRA9 PO; +VITATAB19 PO; +VNTHFA/IN INH; +VTME400 PO; +ZINC PO
== END | disposition home or self-care (01) ==
LOC: C.RDSM 14:53
PROVIDERS: ATTEND Orthopaedic Surgery
DX: M79.641 Pain in right hand (principal)

== ENCOUNTER 2017-02-09 19:22 | Emergency (ER) | payer OTHER, MEDICARE ==
[~2017-02-09] VITALS: Ht 188 cm; Wt 86.5 kg
[~2017-02-09 19:22] MED LIST changes: -ASPI-391 PO; -CHOL2000 PO; -LIDO2SOL19 MT
[2017-02-09 19:29] VITALS: TEMP 36.8; Ht 188 cm; Wt 86.5 kg
[2017-02-09] MEDS ORDERED: ONDANSETRON INJ 2 MG/ML 2 ML VIAL IV STA (19:53)
[2017-02-09] MEDS ORDERED: SODIUM CHLORIDE 0.9% 1000ML 1,000 ML IV STA (19:53)
--- NOTE | 2017-02-09 20:17 | EMERGENCY ROOM VISIT NOTE ---
History First contact with patient: 19:30 Chief Complaint: ABDOMINAL PAIN Stated Complaint: RECURRING PANCREATITIS History of Present Illness The patient is a 76 year old female who presents to the Emergency Room with complaints of upper abdominal pain that started around 4 PM today. The patient reports history of multiple bouts of acute pancreatitis in the past, most recently she was admitted at another hospital last week for a bout of acute pancreatitis, discharged 3 days ago. She states she had been doing well until yesterday, so she started back on a clear liquid diet and has been maintaining this, but her pain got much worse today. She states she also had 2 episodes of watery diarrhea today around 4:00 with some associated nausea, which seemed to greatly aggravate her pain. Her pain is now constant, dull ache and occasionally sharp, currently rates as 4/10. She did not take any medications for the pain. She states this feels like previous bouts of pancreatitis she has had in the past. She states that she is followed by Dr. Terry with GI, as well as a general surgeon, and is supposed to be scheduled for an ERCP, but not has not had this done yet. She denies any fevers/chills, chest pain, SOB, dizziness or passing out, vomiting, blood in her stool, urinary symptoms, or rash. Review of Systems A complete 10 point review of systems was reviewed with the patient with pertinent positives and negatives as per history of present illness. All else were negative. 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 (11) Osteoporosis (12) Pancreatitis (13) Peripheral neuropathy (14) Sciatica (15) UNSPEC CONSTIPATION Surgical Problems: (1) History of appendectomy (2) History of cholecystectomy (3) History of colonoscopy Family History Diabetes mellitus FHx: cancer FHx: heart disease FHx: lung disease Hypertension Kidney disease Social History Smoking Status: Never Smoker Alcohol Use: occasionally Drug Use: none Marital Status: Housing Status: lives with family Occupation Status: retired Current/Historical Medications Scheduled Albuterol Hfa (Ventolin Hfa), 2 PUFFS INH Q6H Ascorbic Acid (Ascorbic Acid), 1,000 MG PO DAILY Astaxanthin (Astaxanthin), 4 MG PO PRN B-Complex W/Biotin & Folic Aci (Vitamin B50 Complex Tr), 1 TAB PO DAILY Cholecalciferol (Vitamin D3), 2,000 UNITS PO DAILY Coenzyme Q10 (Ubidecarenone) (Co Q-10), 200 MG PO DAILY L-Methylfolate W/ Algae-Vitami (Metanx), 3 MG PO PRN Melatonin-Pyridoxine (Melatonin), 3 MG PO HS Menaquinone-7 (Vitamin K2), 200 MCG PO DAILY Milk Thistle (Silybum Marian[place] (Milk Thistle), 200 MG PO DAILY Multivitamin (Multivitamin), 1 TAB PO ON HOLD [place]-3 Fatty Acids ([place] 3), 1,000 MG PO ON HOLD Simethicone (Simethicone), 1 TAB PO PRN Soybean Lecithin (Bulk) (Lecithin), 1 GM PO PRN Tocopheryl Acet,Dl-Alpha (Vitamin E/Dl-Alpha), 1 CAP PO 3-5XSWEEK Vitamin A-Beta Carotene (Vitamin A), 8,000 MG PO DAILY Scheduled PRN Acetaminophen (Tylenol), 1,000 MG PO TID PRN for Headache or Pain Alpha-Lipoic Acid (Thioctic Ac (Alpha Lipoic Acid), 600 MG PO QPM PRN for Alum & Mag Hydrox-Simethicone (Mylanta), 1 DOSE PO UD PRN for Indigestion Artificial Tear Solution (Artificial Tears), 1 DROPS OP QID PRN for DRYNESS Aspirin (Aspirin Ec), 1-2 TAB PO Q6 PRN for Pain Uxioyes-Pqoslooxetnsr-Azclribi (Excedrin Extra Strength), 1-2 TABS PO UD PRN for Pain Famotidine (Pepcid), 20 MG PO HS PRN for ACID REFLUX Furosemide (Furosemide), 20 MG PO PRN PRN for WHEN IS ON FEET ALL DAY Goldenseal (Hydrastis Canadens (Penaloza Seal Root), 1 TAB PO DAILY PRN for Lidocaine Hcl (Mouth-Throat) (Lidocaine Viscous), 2 % MT QID PRN for SORE THROAT Loperamide Hcl (Imodium), 2 MG PO UD PRN for Diarrhea Magnesium Oxide (Magnesium), 500 MG PO DAILY PRN for Ondansetron Hcl (Zofran), 4 MG PO Q6 PRN for Nausea Polyethylene Glycol 3350 (Miralax), 17 GM PO UD PRN for Constipation Prune Juice (Prune Juice ), 4 OZ PO for Constipation Selenium-Yeast (Selenium), 3 MG PO DAILY PRN for Miscellaneous Medications [zinc and copper], 1 TAB PO Allergies Coded Allergies: Statins (Verified Allergy, Intermediate, MUSCLE WEAKNESS, 08/23/16) Tramadol (Verified Allergy, Intermediate, SOB, CHEST PAIN, 08/23/16) HAS TOLERATED MORPHINE Ibandronic Acid (Verified Allergy, Mild, GERD, 08/23/16) Carbamazepine (Verified Allergy, Unknown, pancreatitis, 08/23/16) Proton Pump Inhibitors (Verified Allergy, Unknown, UNKNOWN, 08/23/16) Morphine (Verified Adverse Reaction, Intermediate, GI SYMPTOMS, 08/23/16) PER PATIENT, DRIP OKAY - "NOT PUSHED" Epinephrine (Verified Adverse Reaction, Unknown, DIZZINESS, 08/23/16) Physical Exam Vital Signs Date Time Temp Pulse Resp B/P (MAP) Pulse Ox O2 Delivery O2 Flow Rate FiO2 02/09/17 23:34 61 18 138/84 98 02/09/17 22:15 60 16 132/75 98 Room Air 02/09/17 21:39 59 02/09/17 20:15 67 16 128/80 96 Room Air 02/09/17 19:29 36.8 76 20 128/77 97 Room Air Physical Exam CONSTITUTIONAL: No acute distress. Well hydrated, well appearing and well nourished. Alert and oriented X 4 with normal affect. HEENT: Normocephalic, atraumatic. Pupils equal, round and reactive to light, EOMI. TMs normal. Pharynx normal. Moist mucous membranes. NECK: Supple, full active range of motion without discomfort. RESPIRATORY: Clear to auscultation bilaterally with no wheezing, crackles, rhonchi or stridor. Equal expansion bilaterally. CARDIOVASCULAR: Regular rate and rhythm with no murmurs, rubs or gallops. Normal peripheral perfusion. No edema. GASTROINTESTINAL: Diffuse, mild tenderness in the upper abdomen to palpation, most significant in the epigastric and right upper quadrant region. No rebound , no guarding. Soft, nondistended. Hyperactive bowel sounds present in all quadrants. MUSCULOSKELETAL: Full range of motion of all joints without discomfort. INTEGUMENTARY: No rash or other significant dermatologic conditions noted. NEUROLOGIC: Cranial nerves II-XII grossly intact. No focal neurologic deficits noted. Medical Decision & Procedures ER Provider Diagnostic Interpretation: ABDOMEN 2VIEW W/PA CHEST RTN CLINICAL HISTORY: 76 years-old Female presenting with ABDOMINAL PAIN/GI. TECHNIQUE: PA view of the chest and supine and upright views of the abdomen were obtained. COMPARISON: 09/14/2016. FINDINGS: Atherosclerosis of aortic arch. Tortuosity of the descending thoracic aorta. Cardiac silhouette normal in size. Surgical clips noted in the left axilla. Lungs and pleural spaces clear. Cholecystectomy clips. Nonobstructive bowel gas pattern. No gross pneumoperitoneum. No calcifications to suggest nephrolithiasis. Left hemipelvis phlebolith. Osseous structures normal. IMPRESSION: 1. No acute cardiopulmonary disease. 2. No radiographic evidence of acute intra-abdominal pathology. Laboratory Results 02/09/17 20:15 Red Blood Count 4.06, Mean Corpuscular Volume 93.3, Mean Corpuscular Hemoglobin 31.8, Mean Corpuscular Hemoglobin Concent 34.0, Mean Platelet Volume 10.1, Neutrophils (%) (Auto) 49.5, Lymphocytes (%) (Auto) 38.9, Monocytes (%) (Auto) 7.0, Eosinophils (%) (Auto) 3.5, Basophils (%) (Auto) 0.9, Neutrophils # (Auto) 4.24, Lymphocytes # (Auto) 3.33, Monocytes # (Auto) 0.60, Eosinophils # (Auto) 0.30, Basophils # (Auto) 0.08 02/09/17 20:15 Test 02/09/17 20:15 02/09/17 21:30 White Blood Count 8.57 K/uL (4.8-10.8) Red Blood Count 4.06 M/uL (4.2-5.4) Hemoglobin 12.9 g/dL (12.0-16.0) Hematocrit 37.9 % (37-47) Mean Corpuscular Volume 93.3 fL (80-100) Mean Corpuscular Hemoglobin 31.8 pg (25-34) Mean Corpuscular Hemoglobin Concent 34.0 g/dl (32-36) Platelet Count 256 K/uL (130-400) Mean Platelet Volume 10.1 fL (7.4-10.4) Neutrophils (%) (Auto) 49.5 % Lymphocytes (%) (Auto) 38.9 % Monocytes (%) (Auto) 7.0 % Eosinophils (%) (Auto) 3.5 % Basophils (%) (Auto) 0.9 % Neutrophils # (Auto) 4.24 K/uL (1.4-6.5) Lymphocytes # (Auto) 3.33 K/uL (1.2-3.4) Monocytes # (Auto) 0.60 K/uL (0.11-0.59) Eosinophils # (Auto) 0.30 K/uL (0-0.5) Basophils # (Auto) 0.08 K/uL (0-0.2) RDW Standard Deviation 42.5 fL (36.4-46.3) RDW Coefficient of Variation 12.6 % (11.5-14.5) Immature Granulocyte % (Auto) 0.2 % Immature Granulocyte # (Auto) 0.02 K/uL (0.00-0.02) Anion Gap 5.0 mmol/L (3-11) Est Creatinine Clear Calc Drug Dose 77.5 ml/min Estimated GFR () 87.5 Estimated GFR (Non- 75.5 BUN/Creatinine Ratio 12.2 (10-20) Calcium Level 9.4 mg/dl (8.5-10.1) Total Bilirubin 0.4 mg/dl (0.2-1) Direct Bilirubin < 0.1 mg/dl (0-0.2) Aspartate Amino Transf (AST/SGOT) 44 U/L (15-37) Alanine Aminotransferase (ALT/SGPT) 219 U/L (12-78) Alkaline Phosphatase 111 U/L (45-117) Total Protein 8.0 gm/dl (6.4-8.2) Albumin 4.0 gm/dl (3.4-5.0) Lipase 287 U/L (73-393) Urine Color YELLOW Urine Appearance CLEAR (CLEAR) Urine pH 6.0 (4.5-7.5) Urine Specific [place] 1.006 (1.000-1.030) Urine Protein NEG (NEG) Urine Glucose (UA) NEG (NEG) Urine Ketones NEG (NEG) Urine Occult Blood NEG (NEG) Urine Nitrite NEG (NEG) Urine Bilirubin NEG (NEG) Urine Urobilinogen NEG (NEG) Urine Leukocyte Esterase SMALL (NEG) Urine WBC (Auto) 1-5 /hpf (0-5) Urine RBC (Auto) 0-4 /hpf (0-4) Urine Hyaline Casts (Auto) 0 /lpf (0-5) Urine Epithelial Cells (Auto) 5-10 /lpf (0-5) Urine Bacteria (Auto) NEG (NEG) Medications Administered Medications (Trade) Dose Ordered Sig/Azucena Route Start Time Stop Time Status Last Admin Dose Admin Sodium Chloride 1,000 ml @ 999 mls/hr Q1H1M STAT IV 02/09/17 19:53 02/09/17 20:55 DC 02/09/17 20:11 999 MLS/HR Ondansetron HCl (Zofran Inj) 4 mg NOW STAT IV 02/09/17 19:53 02/09/17 19:56 DC 02/09/17 20:11 4 MG Medical Decision CC: Patient presenting with complaint of abdominal pain Interpretation of Labs: No leukocytosis, no anemia, no significant electrolyte abnormalities, normal renal function, elevated AST/ALT which appears to be improving from labs 3 days ago, liver enzymes are otherwise normal and normal lipase. UA appears more consistent with contamination than infection. Differential Diagnosis: Includes, but not limited to pancreatitis, choledocholithiasis, biliary colic, cholangitis, gastroenteritis, bowel obstruction, bowel perforation, among others. Medication Reconciliation: I attest that I have personally reviewed the patient' s current medication list. Vital signs review: I reviewed the patient's vital signs and interpret them as follows: T: Afebrile; BP: Normotensive; HR: Within normal limits; RR: Within normal limits; Pulse Ox: Within normal limits on room air. Blood pressure screening: The patient was found to have normal blood pressure on screening and does not require follow-up for repeat blood pressure check. Summary: Patient was evaluated at bedside, history and physical exam performed. Patient is alert and oriented, in no acute distress, resting comfortably in the stretcher watching television. Patient states she has been having increased upper abdominal pain since 4 PM today. She does note that she has some abdominal pain at baseline from her pancreatitis. She has mild tenderness in the epigastric and right/left upper quadrant area of the abdomen, no rebound tenderness, no guarding. The abdomen is soft with normal bowel sounds. She was offered some morphine for pain, she states she does not want to take anything for pain because it usually constipates her. She is requesting Zofran for nausea. Orders were placed at bedside for labs, UA, IV fluids for hydration, IV Zofran for nausea, acute abdominal series to rule out bowel obstruction and free air. Patient discussed with Dr. Alba, who agrees with my assessment and plan. Labs reviewed as above, no acute abnormalities. Specifically normal lipase. AST/ALT are elevated, however these appear to be trending down compared to labs from outside hospital 3 days ago. Acute abdominal series reviewed, no acute abnormalities, no bowel obstruction and no free air. Patient reassessed multiple times throughout ED stay, she reports that she is feeling improved after fluids and Zofran, and reports that her pain is also improved. I updated the patient on all results and plan for discharge home. She was encouraged to keep her scheduled appointment with her PCP tomorrow morning. Patient was also given strict return precautions should her symptoms worsen, she verbalized understanding. The patient was comfortable with plan for discharge at this time. Patient was discharged home in stable condition and ambulatory. Impression Primary Impression: Abdominal pain Departure Information Dispostion Home / Self-Care Condition GOOD Referrals Yohannes Morelos M.D.([facility]) (PCP) Patient Instructions ED Diet Full Liquid, ERCP, My [facility] Additional Instructions You have been treated in the Emergency Department your Abdominal Pain. Laboratory results and imaging studies have ruled out any emergent causes for your abdominal pain which would warrant admission or surgery. Based on laboratory results today, it does not appear that you are having an acute flare of your pancreatitis at this time. For pain control, you may use the following [id number] medicines (if >12 yo): - Regular strength (325mg/tab) Tylenol (acetaminophen) 2 tabs every 4-6 hours as needed. Do not exceed 10 tablets in a 24 hour period. Avoid taking more than 3000 mg of Tylenol per day. This includes any other sources of acetaminophen you may take on a regular basis. - Regular strength (200 mg/tab) Advil (ibuprofen) 1-2 tabs every 4-6 hours as needed. Do not exceed a dose of 2400 mg in a 24 hour period. Drink plenty of fluids and stay well hydrated. Stay with a liquid diet for now, until otherwise directed by your primary care provider and/or proof sorter. Keep your scheduled appointment with your primary care provider tomorrow morning. Discuss plans for proceeding with your ERCP procedure. Return to the emergency department for worsening abdominal pain, fevers or chills, severe nausea or vomiting, dizziness, passing out, blood in your stool or urine, or any other concerns. Problem Qualifiers Primary Impression: Abdominal pain Abdominal location: upper abdomen, unspecified Qualified Codes: R10.10 - Upper abdominal pain, unspecified
[2017-02-09 20:25] LABS: BASO % 0.9 %; BASO ABS # 0.08 K/uL (0-0.2); COMPLETE YES; EOS % 3.5 %; HEMATOCRIT 37.9 % (37-47); IG% 0.2 %; LYMPH % 38.9 %; LYMPH ABS # 3.33 K/uL (1.2-3.4); MEAN CELL VOLUME 93.3 fL (80-100); MEAN CORPUSCULAR HEMOGLOBIN 31.8 pg (25-34); MEAN PLATELET VOLUME 10.1 fL (7.4-10.4); NEUT % 49.5 %; PLATELET COUNT 256 K/uL (130-400); RED BLOOD COUNT 4.06 M/uL (4.2-5.4); WHITE BLOOD COUNT 8.57 K/uL (4.8-10.8)
[2017-02-09 20:49] LABS: ALT/SGPT 219 U/L (12-78); AST/SGOT 44 U/L (15-37); BLOOD UREA NITROGEN 9 mg/dl (7-18); BUN/CREATININE RATIO 12.2 (10-20); CALCIUM 9.4 mg/dl (8.5-10.1); CARBON DIOXIDE 28 mmol/L (21-32); CHLORIDE 107 mmol/L (98-107); CREATININE 0.77 mg/dl (0.60-1.20); GLUCOSE 98 mg/dl (70-99); POTASSIUM 3.6 mmol/L (3.5-5.1); SODIUM 140 mmol/L (136-145)
[2017-02-09 20:51] LABS: ALKALINE PHOSPHATASE 111 U/L (45-117)
[2017-02-09] MEDS ORDERED: CHOL2000 PO (21:06)
[2017-02-09] MEDS ORDERED: [UNRECOGNIZED DRUG - CODE] PO (21:24)
[2017-02-09] MEDS ORDERED: ACET-1256 PO (21:24)
[2017-02-09 21:44] LABS: URINE APPEARANCE CLEAR (CLEAR); URINE BILIRUBIN NEG (NEG); URINE COLOR YELLOW; URINE NITRITE NEG (NEG); URINE SPECIFIC GRAVITY 1.006 (1.000-1.030); UROBILINOGEN NEG (NEG); ZZUR CULT IF INDIC CLEAN CATCH NO
[2017-02-09 21:48] LABS: MANUAL MICROSCOPIC REQUIRED? NO; REVIEW REQ? NO
[2017-02-09] MEDS ORDERED: ASPI-391 PO (21:48)
[2017-02-09] MEDS ORDERED: LIDO2SOL19 MT (21:48)
--- NOTE | 2017-02-09 22:25 | DIAGNOSTIC IMAGING REPORT ---
ABDOMEN 2VIEW W/PA CHEST RTN CLINICAL HISTORY: 76 years-old Female presenting with ABDOMINAL PAIN/GI. TECHNIQUE: PA view of the chest and supine and upright views of the abdomen were obtained. COMPARISON: 09/14/2016. FINDINGS: Atherosclerosis of aortic arch. Tortuosity of the descending thoracic aorta. Cardiac silhouette normal in size. Surgical clips noted in the left axilla. Lungs and pleural spaces clear. Cholecystectomy clips. Nonobstructive bowel gas pattern. No gross pneumoperitoneum. No calcifications to suggest nephrolithiasis. Left hemipelvis phlebolith. Osseous structures normal. IMPRESSION: 1. No acute cardiopulmonary disease. 2. No radiographic evidence of acute intra-abdominal pathology. Electronically signed by: Garry Kaur M.D. 02/09/2017 10:23 PM Dictated Date/Time: 02/09/2017 10:21 PM
--- NOTE | 2017-02-09 23:08 | EMERGENCY ROOM VISIT NOTE ---
ED Visit Note First contact with patient: 19:30 Patient seen and evaluated bedside following discussion with nurse practitioner. Patient aware of all results, has appointment with her PCP tomorrow. Discussed possible differential diagnoses, symptoms to watch and return for, follow-up with her pocket stitcher, she verbalized understanding was agreeable with plan.
[2017-02-09 23:34] VITALS: BP 138/84; PULSE 61; O2SAT 98
== END 2017-02-09 23:35 | disposition home or self-care (01) ==
LOC: C.EDB 19:23 → C.EDA 23:35
DX: R10.10 Upper abdominal pain, unspecified (principal); R19.7 Diarrhea, unspecified; R11.0 Nausea; M81.0 Age-related osteoporosis without current pathological fracture; K21.9 Gastro-esophageal reflux disease without esophagitis; Z79.899 Other long term (current) drug therapy; Z87.19 Personal history of other diseases of the digestive system; Z82.49 Family history of ischemic heart disease and other diseases of the circulatory system; Z83.3 Family history of diabetes mellitus; Z83.6 Family history of other diseases of the respiratory system; Z83.79 Family history of other diseases of the digestive system; Z84.1 Family history of disorders of kidney and ureter

== ENCOUNTER 2017-02-28 06:45 | Inpatient (IN) | payer OTHER, MEDICARE ==
[~2017-02-28] VITALS: Ht 190.5 cm; Wt 89.1 kg
[~2017-02-28 06:45] MED LIST changes: +ACET-1256 PO; +ASPI-391 PO; +CHOL2000 PO; -GOLD500C3 PO; +LIDO2SOL19 MT; -PHEN-905 PO; +[UNRECOGNIZED DRUG - CODE] PO
[2017-02-28] MEDS ORDERED: MoRPHine SULFATE 10 MG/ML CARP/VIAL IV PRN (07:15)
[2017-02-28] MEDS ORDERED: SODIUM CHLORIDE 0.9% 1000ML 1,000 ML IV ONE (07:15)
[2017-02-28] MEDS ORDERED: ONDANSETRON INJ 2 MG/ML 2 ML VIAL IV PRN ×2 (07:15→12:00)
--- NOTE | 2017-02-28 07:18 | EMERGENCY ROOM VISIT NOTE ---
History Report prepared by Mary: Chloé German Under the Supervision of: Dr. Rene Fletcher M.D. First contact with patient: 06:56 Chief Complaint: DIARRHEA Stated Complaint: CHEST PAIN/NAUSEA DIARRHEA/PANCREATITIS ATTACK History of Present Illness The patient is a 76 year old female who presents to the Emergency Room with complaints of persistent abdominal pain starting around 3 hours ago. The patient thinks that this might be her pancreatitis. She has a history of pancreatitis and feels this pain is similar. She currently rates her discomfort as an 8-9/10 in severity. The pain was up to "an 11" at worst. She took some Tylenol, Zofran, and Ativan when the pain started. She was able to sleep around 1.5 hours. She notes that she had some sushi and chicken soup last night which is known to worsen her pancreatitis. She is still nauseous. She has had diarrhea for the past couple of days. She has a history of constipation and takes Miralax often. She feels cold. She denies any fever, urinary symptoms, hematochezia, or melena. She denies any alcohol use. She has a history of hysterectomy, appendectomy, oophorectomy, and cholecystectomy. She had an ERCP earlier this year which found sludge. Source of History: patient Onset: 3 hours ago Position: abdomen Symptom Intensity: 8-9/10 Quality: other (pain) Timing: other (persistent) Associated Symptoms: + nausea, + diarrhea, No fevers, No melena, No hematochezia, No urinary symptoms Review of Systems See HPI for pertinent positives & negatives. A total of 10 systems reviewed and were otherwise negative. 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 (11) Osteoporosis (12) Pancreatitis (13) Peripheral neuropathy (14) Sciatica (15) UNSPEC CONSTIPATION Surgical Problems: (1) History of appendectomy (2) History of cholecystectomy (3) History of colonoscopy Family History Diabetes mellitus FHx: cancer FHx: heart disease FHx: lung disease Hypertension Kidney disease Social History Smoking Status: Never Smoker Alcohol Use: occasionally Drug Use: none Marital Status: Housing Status: lives with family Occupation Status: retired Current/Historical Medications Scheduled Albuterol Hfa (Ventolin Hfa), 2 PUFFS INH Q6H Melatonin-Pyridoxine (Melatonin), 3 MG PO HS Simethicone (Simethicone), 1 TAB PO PRN Scheduled PRN Acetaminophen (Tylenol), 1,000 MG PO TID PRN for Headache or Pain Artificial Tear Solution (Artificial Tears), 1 DROPS OP QID PRN for DRYNESS Aspirin (Aspirin Ec), 1-2 TAB PO DAILY PRN for Pain Loperamide Hcl (Imodium), 2 MG PO UD PRN for Diarrhea Lorazepam (Ativan), 0.5 MG PO TID PRN for Anxiety/Agitation Ondansetron Hcl (Zofran), 4 MG PO Q6 PRN for Nausea Polyethylene Glycol 3350 (Miralax), 17 GM PO UD PRN for Constipation Zolpidem Tartrate (Zolpidem Tartrate), 5 MG PO HS PRN for insomnia Allergies Coded Allergies: Statins (Verified Allergy, Intermediate, MUSCLE WEAKNESS, 02/28/17) Tramadol (Verified Allergy, Intermediate, SOB, CHEST PAIN, 02/28/17) HAS TOLERATED MORPHINE Ibandronic Acid (Verified Allergy, Mild, GERD, 02/28/17) Carbamazepine (Verified Allergy, Unknown, pancreatitis, 02/28/17) Proton Pump Inhibitors (Verified Allergy, Unknown, UNKNOWN, 02/28/17) Morphine (Verified Adverse Reaction, Intermediate, GI SYMPTOMS, 02/28/17) PER PATIENT, DRIP OKAY - "NOT PUSHED" Epinephrine (Verified Adverse Reaction, Unknown, DIZZINESS, 02/28/17) Physical Exam Vital Signs Date Time Temp Pulse Resp B/P (MAP) Pulse Ox O2 Delivery O2 Flow Rate FiO2 02/28/17 10:01 58 16 111/65 95 Room Air 02/28/17 08:03 61 16 116/68 96 Room Air 02/28/17 06:49 36.4 59 16 117/69 98 Room Air Physical Exam GENERAL: Patient awake, alert, oriented x 3. Patient appears to be in moderate distress. Patient follows commands. Patient does not appear toxic. Patient is adequately hydrated and well-nourished. SKIN: No erythema, pallor, cyanosis or rash HEENT: Normal head, pupils equal, reactive to light and accommodation. LUNGS: Clear to auscultation. No wheezes, no rales, no rhonchi. HEART: No murmurs. No gallops. No rubs ABDOMEN: Diffuse tenderness right greater than left. No masses, no rebound, no hepatomegaly or splenomegaly. Hysterectomy scar. Appendectomy scar. EXTREMITIES: No signs of trauma or infection. NEUROLOGIC: Cranial nerves II-XII within normal limits. No gross motor sensory function deficits. Medical Decision & Procedures Laboratory Results 02/28/17 07:15 Red Blood Count 4.15, Mean Corpuscular Volume 93.5, Mean Corpuscular Hemoglobin 31.1, Mean Corpuscular Hemoglobin Concent 33.2, Mean Platelet Volume 10.2, Neutrophils (%) (Auto) 57.3, Lymphocytes (%) (Auto) 31.0, Monocytes (%) (Auto) 8.7, Eosinophils (%) (Auto) 2.3, Basophils (%) (Auto) 0.5, Neutrophils # (Auto) 6.24, Lymphocytes # (Auto) 3.38, Monocytes # (Auto) 0.95, Eosinophils # (Auto) 0.25, Basophils # (Auto) 0.05 02/28/17 07:15 Test 02/28/17 00:00 02/28/17 07:15 Urine Color YELLOW Urine Appearance CLEAR (CLEAR) Urine pH 5.0 (4.5-7.5) Urine Specific [place] 1.014 (1.000-1.030) Urine Protein NEG (NEG) Urine Glucose (UA) NEG (NEG) Urine Ketones NEG (NEG) Urine Occult Blood NEG (NEG) Urine Nitrite NEG (NEG) Urine Bilirubin NEG (NEG) Urine Urobilinogen NEG (NEG) Urine Leukocyte Esterase MODERATE (NEG) Urine WBC (Auto) 5-10 /hpf (0-5) Urine RBC (Auto) 0-4 /hpf (0-4) Urine Hyaline Casts (Auto) 1-5 /lpf (0-5) Urine Epithelial Cells (Auto) 10-20 /lpf (0-5) Urine Bacteria (Auto) NEG (NEG) White Blood Count 10.89 K/uL (4.8-10.8) Red Blood Count 4.15 M/uL (4.2-5.4) Hemoglobin 12.9 g/dL (12.0-16.0) Hematocrit 38.8 % (37-47) Mean Corpuscular Volume 93.5 fL (80-100) Mean Corpuscular Hemoglobin 31.1 pg (25-34) Mean Corpuscular Hemoglobin Concent 33.2 g/dl (32-36) Platelet Count 260 K/uL (130-400) Mean Platelet Volume 10.2 fL (7.4-10.4) Neutrophils (%) (Auto) 57.3 % Lymphocytes (%) (Auto) 31.0 % Monocytes (%) (Auto) 8.7 % Eosinophils (%) (Auto) 2.3 % Basophils (%) (Auto) 0.5 % Neutrophils # (Auto) 6.24 K/uL (1.4-6.5) Lymphocytes # (Auto) 3.38 K/uL (1.2-3.4) Monocytes # (Auto) 0.95 K/uL (0.11-0.59) Eosinophils # (Auto) 0.25 K/uL (0-0.5) Basophils # (Auto) 0.05 K/uL (0-0.2) RDW Standard Deviation 42.3 fL (36.4-46.3) RDW Coefficient of Variation 12.4 % (11.5-14.5) Immature Granulocyte % (Auto) 0.2 % Immature Granulocyte # (Auto) 0.02 K/uL (0.00-0.02) Anion Gap 8.0 mmol/L (3-11) Est Creatinine Clear Calc Drug Dose 68.2 ml/min Estimated GFR () 72.5 Estimated GFR (Non- 62.5 BUN/Creatinine Ratio 17.2 (10-20) Calcium Level 9.2 mg/dl (8.5-10.1) Total Bilirubin 0.5 mg/dl (0.2-1) Aspartate Amino Transf (AST/SGOT) 149 U/L (15-37) Alanine Aminotransferase (ALT/SGPT) 100 U/L (12-78) Alkaline Phosphatase 88 U/L (45-117) Total Protein 7.5 gm/dl (6.4-8.2) Albumin 3.7 gm/dl (3.4-5.0) Globulin 3.8 gm/dl (2.5-4.0) Albumin/Globulin Ratio 1.0 (0.9-2) Lipase 48491 U/L (73-393) Laboratory results as stated above per my review. Medications Administered Medications (Trade) Dose Ordered Sig/Azucena Route Start Time Stop Time Status Last Admin Dose Admin Sodium Chloride 1,000 ml @ 1,000 mls/hr Q1H ONCE IV 02/28/17 07:15 02/28/17 08:14 DC 02/28/17 07:27 1,000 MLS/HR Ondansetron HCl (Zofran Inj) 4 mg Q1HWA PRN IV 02/28/17 07:15 02/28/17 13:42 DC 02/28/17 07:26 4 MG Morphine Sulfate (MoRPHine SULFATE INJ) 2 mg PRN PRN IV 02/28/17 07:15 02/28/17 13:42 DC 02/28/17 10:04 2 MG Sodium Chloride 1,000 ml @ 500 mls/hr Q2H STAT IV 02/28/17 09:51 02/28/17 11:50 DC 02/28/17 10:01 500 MLS/HR ED Course 0657: Past medical records reviewed. The patient was evaluated in room A12B. A complete history and physical examination was performed. 0715: Morphine Sulfate 2 mg IV, Zofran Inj 4 mg IV, NSS 1000 ml @ 1000 mls/hr IV. 0946: Upon reevaluation, the patient is still having pain. I discussed today's findings with her. She verbalized agreement of the treatment plan. The patient will be evaluated for further management. 0951: NSS 1000 ml @ 500 mls/hr IV. 1014: I discussed the patient's case with Dr. Dominguez, [facility] hospitalist. The patient will be evaluated for further management. 1037: Dr. Dominguez was called in error. The patient will not go to his service. [facility] was paged. 1051: I discussed the patient's case with Dr. Lockett, [facility]. The patient will be evaluated for further management. Medical Decision Nurses notes reviewed. Medical history sheet reviewed. Differential diagnosis includes but is not limited to: pancreatitis, peptic/gastric ulcer disease, gastritis, common bile duct stone. The patient is here with significant upper abdominal pain along with nausea and vomiting. The patient had a prior history of pancreatitis. Multiple labs and urinalysis were obtained. Please see above. The patient's lipase is markedly elevated. The patient was given IV fluids, Zofran and pain medication. I discussed care with the patient another family member and the hospitalist. The patient was made nothing by mouth status. Medication Reconcilliation Current Medication List: was personally reviewed by me Blood Pressure Screening Patient's blood pressure: Normal blood pressure Blood pressure disposition: Did not require urgent referral Consults Time Called: 0949 Consulting Physician: Dr. Dominguez [facility] hospitalist Returned Call: [phone] Discussed the patient's case with him. The patient will be evaluated for further management. Additional Consults: Time Called: 1037 Consulted Physician: Dr. Lockett [facility] hospitalist Returned Call: [phone] Additional Comments: Discussed the patient's case with him. The patient will be evaluated for further management. Impression Primary Impression: Pancreatitis Scribe Attestation The scribe's documentation has been prepared under my direction and personally reviewed by me in its entirety. I confirm that the note above accurately reflects all work, treatment, procedures, and medical decision making performed by me. Departure Information Dispostion Being Evaluated By Hospitalist Referrals Yohannes Morelos M.D.([facility]) (PCP) Patient Instructions My [facility]
[2017-02-28 07:28] LABS: BASO % 0.5 %; BASO ABS # 0.05 K/uL (0-0.2); COMPLETE YES; EOS % 2.3 %; HEMATOCRIT 38.8 % (37-47); IG% 0.2 %; LYMPH ABS # 3.38 K/uL (1.2-3.4); MEAN CELL VOLUME 93.5 fL (80-100); MEAN CORPUSCULAR HEMOGLOBIN 31.1 pg (25-34); MEAN CORPUSCULAR HGB CONC 33.2 g/dl (32-36); MEAN PLATELET VOLUME 10.2 fL (7.4-10.4); MONO % 8.7 %; NEUT % 57.3 %; PLATELET COUNT 260 K/uL (130-400); RED BLOOD COUNT 4.15 M/uL (4.2-5.4); WHITE BLOOD COUNT 10.89 K/uL (4.8-10.8)
[2017-02-28] MEDS: MoRPHine SULFATE 2 MG/ML CARP IV PRN ×4 (07:28→10:04)
[2017-02-28 07:48] LABS: BUN/CREATININE RATIO 17.2 (10-20); CALCIUM 9.2 mg/dl (8.5-10.1); CREATININE 0.9 mg/dl (0.60-1.20); POTASSIUM 3.9 mmol/L (3.5-5.1)
[2017-02-28] MEDS ORDERED: SODIUM CHLORIDE 0.9% 1000ML 1,000 ML IV STA (09:51)
[2017-02-28] MEDS ORDERED: SIMETHICONE 80 MG CHEW PO PRN (12:00)
[2017-02-28] MEDS ORDERED: HOME MED ADMINISTRATION ONE (12:00)
[2017-02-28] MEDS ORDERED: ARTIFICIAL TEARS OP SOLN OP PRN ×2 (12:00)
[2017-02-28] MEDS: ALBUTEROL HFA 8 GM INHALER INH SCH ×2 (12:00→15:19)
[2017-02-28] MEDS ORDERED: AMB5 PO (12:02)
[2017-02-28] MEDS ORDERED: LORA-741 PO (12:02)
[2017-02-28] MEDS ORDERED: ACETAMINOPHEN 325 MG TAB PO PRN (12:15)
[2017-02-28] MEDS ORDERED: LORAZEPAM 0.5 MG TAB PO PRN (12:15)
[2017-02-28] MEDS ORDERED: MoRPHine SULFATE 2 MG/ML CARP IV PRN (12:15)
[2017-02-28] MEDS ORDERED: SODIUM CHLORIDE 0.9% 1000ML 1,000 ML IV SCH (12:15)
[2017-02-28] MEDS ORDERED: ZOLPIDEM TARTRATE 5 MG TAB PO PRN (12:15)
[2017-02-28 13:17] LABS: PROTHROMBIN TIME (PATIENT) 10.7 SECONDS (9.0-12.0)
[2017-02-28 13:31] LABS: URINE APPEARANCE CLEAR (CLEAR); URINE BILIRUBIN NEG (NEG); URINE COLOR YELLOW; URINE NITRITE NEG (NEG); URINE SPECIFIC GRAVITY 1.014 (1.000-1.030); UROBILINOGEN NEG (NEG); ZZUR CULT IF INDIC CLEAN CATCH NO
[2017-02-28 13:32] LABS: MANUAL MICROSCOPIC REQUIRED? NO; REVIEW REQ? NO
[2017-02-28 14:43] VITALS: BP 111/65; PULSE 58; TEMP 36.5; O2SAT 95; Ht 190.5 cm; Wt 89.1 kg
--- NOTE | 2017-02-28 15:06 | Gastrointestinal Consultation ---
Gastrointestinal Consultation Date of Consultation: Feb 28, 2017 Attending Physician: Ashtyn Starkey M.D Consulting Physician: Parul Whiteside M.D Reason for Consultation: Pancreatitis History of Present Illness Patient is a 76 year old female with medical comorbids of IBS, GERD, Recurrent pancreatitis, presented to the hospital with epigastric abdominal pain for one day. Pain was sharp, nonradiating, constant, associated with nausea and diarrhea but no vomiting. No fever, chills, jaundice, melena or hematemesis. She had similar pain in the past when she had pancreatitis. She had Cholecystectomy in 2012, since then had 5 episodes of pancreatitis. In 07/2016 had MRCP showed dilated CBD but no stones. Later had EUS which showed sludge in the CBD, she offered and ERCP which she declined. She was recently admitted in [place] for pancreatitis and told she needs sphincterotomy. She finally agreed for ERCP and was scheduled for 03/2017. She feels better now after IV fluids and very hungry. Pain subsided and no nausea or vomiting. EGD 10/21/16: Gastritis. EUS 10/21/16 for f/u pancreatitis: Normal Ampulla, CBD 9 mm, adherent sludge was seen in the distal common bile duct, Normal pancreas. Sonogram in 07/2016 showed CBD 1.2cm. Past Medical/Surgical History Medical Problems: (1) Constipation Status: Acute (2) Intractable abdominal pain Status: Acute (3) Leukocytosis Status: Acute (4) Non-cardiac chest pain Status: Acute (5) Pancreatitis Status: Chronic (6) Weakness Status: Acute Past Medical History: as stated above. Past Surgical History: Hysterectomy, Cholecystectomy, Appendectomy, Mastectomy. Family History Diabetes mellitus FHx: cancer FHx: heart disease FHx: lung disease Hypertension Kidney disease Social History Smoking Status: Never Smoker Alcohol Use: occasionally Drug Use: none Marital Status: Housing Status: lives with family Occupation Status: retired Allergies Coded Allergies: Statins (Verified Allergy, Intermediate, MUSCLE WEAKNESS, 02/28/17) Tramadol (Verified Allergy, Intermediate, SOB, CHEST PAIN, 02/28/17) HAS TOLERATED MORPHINE Ibandronic Acid (Verified Allergy, Mild, GERD, 02/28/17) Carbamazepine (Verified Allergy, Unknown, pancreatitis, 02/28/17) Proton Pump Inhibitors (Verified Allergy, Unknown, UNKNOWN, 02/28/17) Morphine (Verified Adverse Reaction, Intermediate, GI SYMPTOMS, 02/28/17) PER PATIENT, DRIP OKAY - "NOT PUSHED" Epinephrine (Verified Adverse Reaction, Unknown, DIZZINESS, 02/28/17) Current Medications Home Meds and Scripts Medications Dose Route/Sig Max Daily Dose Days Date Category Dose Instructions Ativan (Lorazepam) 0.5 Mg Tab 0.5 Mg PO TID PRN 02/28/17 Reported Zolpidem Tartrate 5 Mg Tab 5 Mg PO HS PRN 02/28/17 Reported Tylenol (Acetaminophen) 500 Mg Tab 1,000 Mg PO TID PRN 02/09/17 Reported Imodium (Loperamide Hcl) 2 Mg Cap 2 Mg PO UD PRN 5 05/16/16 Rx take 1 cap after each loose bowel movement as needed (may use maximum of 8 caps in one day) Simethicone 125 Mg Cap 1 Tab PO PRN 05/14/16 Reported Artificial Tears (Artificial Tear Solution) 1 Khushi Khushi 1 Drops OP QID PRN 05/14/16 Reported Ventolin Hfa (Albuterol) 200 Puffs/22089 Mcg Aers 2 Puffs INH Q6H 05/14/16 Reported Melatonin (Melatonin-Pyridoxine) 1 Tab Tab 3 Mg PO HS 03/11/14 Reported Aspirin Ec (Aspirin) 325 Mg Tab 1-2 Tab PO DAILY PRN 10/18/13 Reported Zofran (Ondansetron HCl) 4 Mg Tab 4 Mg PO Q6 PRN 10/18/13 Reported Miralax (Polyethylene Glycol 3350) 1 Pow Pow 17 Gm PO UD PRN 09/11/13 Reported Review of Systems Constitutional: No fever, No chills Eyes: No worsening of vision, No eye pain ENT: No hearing loss, No unusual epistaxis Respiratory: No cough, No sputum Cardiac: No chest pain, No orthopnea Abdomen: + see HPI Musculoskeletal: No joint pain, No muscle pain Female : No dysuria, No hematuria Neuro: No paralysis, No weakness Psych: No depression symptoms, No anxiety Endo: No fatigue, No excessive thirst, No excessive urination Skin: No rash, No itch Physical Exam Date Time Temp Pulse Resp B/P (MAP) Pulse Ox O2 Delivery O2 Flow Rate FiO2 02/28/17 10:01 58 16 111/65 95 Room Air 02/28/17 08:03 61 16 116/68 96 Room Air 02/28/17 06:49 36.4 59 16 117/69 98 Room Air General Appearance: WD/WN, no apparent distress ENT: normal ENT inspection, hearing grossly normal Neck: supple, trachea midline Respiratory/Chest: lungs clear, normal breath sounds Cardiovascular: regular rate, rhythm, no edema Abdomen: normal bowel sounds, non tender, soft, no organomegaly Extremities: no pedal edema, normal capillary refill Neurologic/Psych: alert, oriented x 3 Skin: no jaundice, no rash Laboratory Results Last 24 Hours Test 02/28/17 00:00 02/28/17 07:15 02/28/17 12:51 Urine Color YELLOW Urine Appearance CLEAR Urine pH 5.0 Urine Specific [place] 1.014 Urine Protein NEG Urine Glucose (UA) NEG Urine Ketones NEG Urine Occult Blood NEG Urine Nitrite NEG Urine Bilirubin NEG Urine Urobilinogen NEG Urine Leukocyte Esterase MODERATE Urine WBC (Auto) 5-10 /hpf Urine RBC (Auto) 0-4 /hpf Urine Hyaline Casts (Auto) 1-5 /lpf Urine Epithelial Cells (Auto) 10-20 /lpf Urine Bacteria (Auto) NEG White Blood Count 10.89 K/uL Red Blood Count 4.15 M/uL Hemoglobin 12.9 g/dL Hematocrit 38.8 % Mean Corpuscular Volume 93.5 fL Mean Corpuscular Hemoglobin 31.1 pg Mean Corpuscular Hemoglobin Concent 33.2 g/dl Platelet Count 260 K/uL Mean Platelet Volume 10.2 fL Neutrophils (%) (Auto) 57.3 % Lymphocytes (%) (Auto) 31.0 % Monocytes (%) (Auto) 8.7 % Eosinophils (%) (Auto) 2.3 % Basophils (%) (Auto) 0.5 % Neutrophils # (Auto) 6.24 K/uL Lymphocytes # (Auto) 3.38 K/uL Monocytes # (Auto) 0.95 K/uL Eosinophils # (Auto) 0.25 K/uL Basophils # (Auto) 0.05 K/uL RDW Standard Deviation 42.3 fL RDW Coefficient of Variation 12.4 % Immature Granulocyte % (Auto) 0.2 % Immature Granulocyte # (Auto) 0.02 K/uL Sodium Level 139 mmol/L Potassium Level 3.9 mmol/L Chloride Level 106 mmol/L Carbon Dioxide Level 25 mmol/L Anion Gap 8.0 mmol/L Blood Urea Nitrogen 15 mg/dl Creatinine 0.90 mg/dl Est Creatinine Clear Calc Drug Dose 68.2 ml/min Estimated GFR () 72.5 Estimated GFR (Non- 62.5 BUN/Creatinine Ratio 17.2 Random Glucose 101 mg/dl Calcium Level 9.2 mg/dl Total Bilirubin 0.5 mg/dl Aspartate Amino Transf (AST/SGOT) 149 U/L Alanine Aminotransferase (ALT/SGPT) 100 U/L Alkaline Phosphatase 88 U/L Total Protein 7.5 gm/dl Albumin 3.7 gm/dl Globulin 3.8 gm/dl Albumin/Globulin Ratio 1.0 Lipase 89627 U/L Prothrombin Time 10.7 SECONDS Prothromb Time International Ratio 1.0 Impression Patient is a 76 year old female with Hx of cholecystectomy in the past. Had recurrent episodes of mild acute pancreatitis. Her CBD is 1.2cm on sonogram and 9mm on EUS and there is sludge in CBD on EUS. She has elevated AST/ALT now. No fever or leukocytosis to suggest cholangitis. Currently being treated for acute pancreatitis, her pain resolved and feels hungry. BUN normal and no significant hemoconcentration. This is mild acute pancreatitis. 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 She agrees for ERCP, I explained she is at increased risk of post ERCP pancreatitis in view of suspected SOD and current pancreatitis, she understood and agreed. Plan Will discuss with regarding possible ERCP this admission. She can start clear liquids today but keep NPO after midnight in anticipation for ERCP. Continue IV Hydration with LR preferably than NS at a rate 150-200 cc and monitor her Hct and BUN. Pain control as needed. .
[2017-02-28 15:36] VITALS: BP 110/64; PULSE 56; TEMP 36.4; O2SAT 96
[2017-02-28 16:01] VITALS: O2SAT 95
--- NOTE | 2017-02-28 16:21 | History and Physical ---
History & Physical Date & Time of Service: Feb 28, 2017 at 12:05 Chief Complaint: Chest Pain/Nausea Diarrhea/Pancreatitis Attack Primary Care Physician: Yohannes Morelos M.D.(GIANCARLO) History of Present Illness Source: patient, spouse, clinic records, hospital records 76 yo F with recurrent pancreatitis for the past two years and a recent admission in a [facility] for acute pancreatitis presents to the ER with intolerance to PO, and severe epigastric pain. The pain began last night and progressively got worse. She was only able to sleep for three hours. She reports eating sushi last night and then became sick before bed. She denies any vomiting. She reports chronic constipation and took a Bisacodyl yesterday and ended up with several episodes of diarrhea, for which she then began taking "alot" of Imodium. She also took Zofran, Ativan and Zantac but this didn't help much. Her symptoms progressed this morning. She called her PCP office who advised that she come to the ER. She is currently comfortable after 4mg IV morphine. She denies any fevers or chills, chest pain or shortness of breath. She denies any blood in her stool. is at the bedside. Past Medical/Surgical History Medical Problems: (1) AORTIC ATHEROSCLEROSIS Status: Chronic (2) ASTHMA, UNSPECIFIED Status: Chronic (3) Constipation Status: Chronic (4) Gastroesophageal reflux disease Status: Chronic (5) Gastroparesis Status: Chronic (6) IBS Status: Chronic (7) Idiopathic peripheral neuropathy Status: Chronic (8) MALIGN NEOPL OVARY Status: Resolved (9) Malignant neoplasm of upper-outer quadrant of female breast Status: Resolved (10) Melanoma Permanent Comment: s/p curative excision biopsy Status: Resolved (11) Osteoporosis Status: Chronic (12) Pancreatitis Status: Chronic Surgical Problems: (1) History of appendectomy Status: Resolved (2) History of cholecystectomy Status: Resolved (3) History of colonoscopy Status: Resolved Family History Diabetes mellitus FHx: cancer FHx: heart disease FHx: lung disease Hypertension Kidney disease Social History Smoking Status: Never Smoker Smokeless Tobacco Use: No Alcohol Use: none Drug Use: none Marital Status: Housing status: lives with significant other Occupational Status: retired Immunizations History of Influenza Vaccine: Yes Influenza Vaccine Date: Dec 10, 2016 History of Tetanus Vaccine?: Yes Tetanus Immunization Date: Jul 13, 2013 History of Pneumococcal: Yes Pneumococcal Date: Jun 05, 2016 History of Hepatitis B Vaccine: No Multi-Drug Resistant Organisms History of MDRO: No Allergies Coded Allergies: Statins (Verified Allergy, Intermediate, MUSCLE WEAKNESS, 02/28/17) Tramadol (Verified Allergy, Intermediate, SOB, CHEST PAIN, 02/28/17) HAS TOLERATED MORPHINE Ibandronic Acid (Verified Allergy, Mild, GERD, 02/28/17) Carbamazepine (Verified Allergy, Unknown, pancreatitis, 02/28/17) Proton Pump Inhibitors (Verified Allergy, Unknown, UNKNOWN, 02/28/17) Morphine (Verified Adverse Reaction, Intermediate, GI SYMPTOMS, 02/28/17) PER PATIENT, DRIP OKAY - "NOT PUSHED" Epinephrine (Verified Adverse Reaction, Unknown, DIZZINESS, 02/28/17) Home Medications Scheduled Albuterol Hfa (Ventolin Hfa), 2 PUFFS INH Q6H Melatonin-Pyridoxine (Melatonin), 3 MG PO HS Simethicone (Simethicone), 1 TAB PO PRN Scheduled PRN Acetaminophen (Tylenol), 1,000 MG PO TID PRN for Headache or Pain Artificial Tear Solution (Artificial Tears), 1 DROPS OP QID PRN for DRYNESS Aspirin (Aspirin Ec), 1-2 TAB PO DAILY PRN for Pain Loperamide Hcl (Imodium), 2 MG PO UD PRN for Diarrhea Lorazepam (Ativan), 0.5 MG PO TID PRN for Anxiety/Agitation Ondansetron Hcl (Zofran), 4 MG PO Q6 PRN for Nausea Polyethylene Glycol 3350 (Miralax), 17 GM PO UD PRN for Constipation Zolpidem Tartrate (Zolpidem Tartrate), 5 MG PO HS PRN for insomnia Review of Systems At least ten systems were reviewed and negative except as indicated in HPI. Physical Exam Vital Signs Date Time Temp Pulse Resp B/P (MAP) Pulse Ox O2 Delivery O2 Flow Rate FiO2 02/28/17 10:01 58 16 111/65 95 Room Air 02/28/17 08:03 61 16 116/68 96 Room Air 02/28/17 06:49 36.4 59 16 117/69 98 Room Air General Appearance: WD/WN, no apparent distress Head: normocephalic, atraumatic Eyes: normal inspection, PERRL, sclerae normal ENT: hearing grossly normal, pharynx normal Neck: supple, no JVD, trachea midline Respiratory/Chest: lungs clear, normal breath sounds, no respiratory distress, no accessory muscle use Cardiovascular: regular rate, rhythm, no edema, no gallop, no JVD, no murmur, normal peripheral pulses Abdomen/GI: normal bowel sounds, soft, + tenderness (epigastric tenderness) Back: + pertinent finding (no CVA tenderness o r back pain to palpation) Extremities/Musculoskelatal: normal inspection, no pedal edema Neurologic/Psych: contract admin II-XII nml as tested, no motor/sensory deficits, alert, normal mood/affect, oriented x 3 Skin: normal color, warm/dry, no rash Diagnostics Laboratory Results 02/28/17 07:15 Red Blood Count 4.15, Mean Corpuscular Volume 93.5, Mean Corpuscular Hemoglobin 31.1, Mean Corpuscular Hemoglobin Concent 33.2, Mean Platelet Volume 10.2, Neutrophils (%) (Auto) 57.3, Lymphocytes (%) (Auto) 31.0, Monocytes (%) (Auto) 8.7, Eosinophils (%) (Auto) 2.3, Basophils (%) (Auto) 0.5, Neutrophils # (Auto) 6.24, Lymphocytes # (Auto) 3.38, Monocytes # (Auto) 0.95, Eosinophils # (Auto) 0.25, Basophils # (Auto) 0.05 02/28/17 07:15 Test 02/28/17 00:00 02/28/17 07:15 02/28/17 12:51 Urine Color YELLOW Urine Appearance CLEAR (CLEAR) Urine pH 5.0 (4.5-7.5) Urine Specific [place] 1.014 (1.000-1.030) Urine Protein NEG (NEG) Urine Glucose (UA) NEG (NEG) Urine Ketones NEG (NEG) Urine Occult Blood NEG (NEG) Urine Nitrite NEG (NEG) Urine Bilirubin NEG (NEG) Urine Urobilinogen NEG (NEG) Urine Leukocyte Esterase MODERATE (NEG) Urine WBC (Auto) 5-10 /hpf (0-5) Urine RBC (Auto) 0-4 /hpf (0-4) Urine Hyaline Casts (Auto) 1-5 /lpf (0-5) Urine Epithelial Cells (Auto) 10-20 /lpf (0-5) Urine Bacteria (Auto) NEG (NEG) White Blood Count 10.89 K/uL (4.8-10.8) Red Blood Count 4.15 M/uL (4.2-5.4) Hemoglobin 12.9 g/dL (12.0-16.0) Hematocrit 38.8 % (37-47) Mean Corpuscular Volume 93.5 fL (80-100) Mean Corpuscular Hemoglobin 31.1 pg (25-34) Mean Corpuscular Hemoglobin Concent 33.2 g/dl (32-36) Platelet Count 260 K/uL (130-400) Mean Platelet Volume 10.2 fL (7.4-10.4) Neutrophils (%) (Auto) 57.3 % Lymphocytes (%) (Auto) 31.0 % Monocytes (%) (Auto) 8.7 % Eosinophils (%) (Auto) 2.3 % Basophils (%) (Auto) 0.5 % Neutrophils # (Auto) 6.24 K/uL (1.4-6.5) Lymphocytes # (Auto) 3.38 K/uL (1.2-3.4) Monocytes # (Auto) 0.95 K/uL (0.11-0.59) Eosinophils # (Auto) 0.25 K/uL (0-0.5) Basophils # (Auto) 0.05 K/uL (0-0.2) RDW Standard Deviation 42.3 fL (36.4-46.3) RDW Coefficient of Variation 12.4 % (11.5-14.5) Immature Granulocyte % (Auto) 0.2 % Immature Granulocyte # (Auto) 0.02 K/uL (0.00-0.02) Anion Gap 8.0 mmol/L (3-11) Est Creatinine Clear Calc Drug Dose 68.2 ml/min Estimated GFR () 72.5 Estimated GFR (Non- 62.5 BUN/Creatinine Ratio 17.2 (10-20) Calcium Level 9.2 mg/dl (8.5-10.1) Total Bilirubin 0.5 mg/dl (0.2-1) Aspartate Amino Transf (AST/SGOT) 149 U/L (15-37) Alanine Aminotransferase (ALT/SGPT) 100 U/L (12-78) Alkaline Phosphatase 88 U/L (45-117) Total Protein 7.5 gm/dl (6.4-8.2) Albumin 3.7 gm/dl (3.4-5.0) Globulin 3.8 gm/dl (2.5-4.0) Albumin/Globulin Ratio 1.0 (0.9-2) Lipase 63554 U/L (73-393) Prothrombin Time 10.7 SECONDS (9.0-12.0) Prothromb Time International Ratio 1.0 (0.9-1.1) Results Past 24 Hours Test 02/28/17 07:15 Range/Units White Blood Count 10.89 4.8-10.8 K/uL Red Blood Count 4.15 4.2-5.4 M/uL Hemoglobin 12.9 12.0-16.0 g/dL Hematocrit 38.8 37-47 % Mean Corpuscular Volume 93.5 80-100 fL Mean Corpuscular Hemoglobin 31.1 25-34 pg Mean Corpuscular Hemoglobin Concent 33.2 32-36 g/dl Platelet Count 260 130-400 K/uL Mean Platelet Volume 10.2 7.4-10.4 fL Neutrophils (%) (Auto) 57.3 % Lymphocytes (%) (Auto) 31.0 % Monocytes (%) (Auto) 8.7 % Eosinophils (%) (Auto) 2.3 % Basophils (%) (Auto) 0.5 % Neutrophils # (Auto) 6.24 1.4-6.5 K/uL Lymphocytes # (Auto) 3.38 1.2-3.4 K/uL Monocytes # (Auto) 0.95 0.11-0.59 K/uL Eosinophils # (Auto) 0.25 0-0.5 K/uL Basophils # (Auto) 0.05 0-0.2 K/uL RDW Standard Deviation 42.3 36.4-46.3 fL RDW Coefficient of Variation 12.4 11.5-14.5 % Immature Granulocyte % (Auto) 0.2 % Immature Granulocyte # (Auto) 0.02 0.00-0.02 K/uL Sodium Level 139 136-145 mmol/L Potassium Level 3.9 3.5-5.1 mmol/L Chloride Level 106 98-107 mmol/L Carbon Dioxide Level 25 21-32 mmol/L Anion Gap 8.0 3-11 mmol/L Blood Urea Nitrogen 15 7-18 mg/dl Creatinine 0.90 0.60-1.20 mg/dl Est Creatinine Clear Calc Drug Dose 68.2 ml/min Estimated GFR () 72.5 Estimated GFR (Non- 62.5 BUN/Creatinine Ratio 17.2 10-20 Random Glucose 101 70-99 mg/dl Calcium Level 9.2 8.5-10.1 mg/dl Total Bilirubin 0.5 0.2-1 mg/dl Aspartate Amino Transf (AST/SGOT) 149 15-37 U/L Alanine Aminotransferase (ALT/SGPT) 100 12-78 U/L Alkaline Phosphatase 88 45-117 U/L Total Protein 7.5 6.4-8.2 gm/dl Albumin 3.7 3.4-5.0 gm/dl Globulin 3.8 2.5-4.0 gm/dl Albumin/Globulin Ratio 1.0 0.9-2 Lipase 63847 73-393 U/L Impression Assessment and Plan 76 yo F with recurrent pancreatitis presents with an acute flare. 1. Acute pancreatitis-uncertain nitus, she has had recurrent bouts of this including two weeks ago for which she was hospitalized in [place] and underwent and ERCP with sphincterotomy. IVF were started and pt diet was advanced to clears. Cont supportive care. Per GI, they are considering the possibility of a repeat ERCP this admission. Records were requested from the outside hospital. DVT proph: Emiliano Full Code Dispo-inpatient, Med/Surg DO [facility] Level of Care Med/Surg Resuscitation Status FULL RESUSCITATION VTE Prophylaxis VTE Risk Assessment Done? Y/N: Yes Risk Level: Moderate Given or contraindicated: Enoxaparin (Lovenox)SQ
[2017-02-28] MEDS: LACTATED RINGER'S 1000ML 1,000 ML IV SCH (17:37)
[2017-02-28] MEDS ORDERED: NON-FORMULARY MEDICATION (Melatonin-Pyridoxine (Melatonin) 3 MG) PO SCH (21:00)
[2017-02-28 23:54] VITALS: BP 102/65; PULSE 54; TEMP 36.7; O2SAT 96
[2017-03-01] MEDS: LACTATED RINGER'S 1000ML 1,000 ML IV SCH ×4 (00:46→18:11)
[2017-03-01] MEDS: ALBUTEROL HFA 8 GM INHALER INH SCH ×4 (06:00→15:57)
[2017-03-01 06:10] LABS: BASO % 0.9 %; BASO ABS # 0.05 K/uL (0-0.2); COMPLETE YES; EOS % 3.6 %; IG% 0.2 %; LYMPH % 38.8 %; LYMPH ABS # 2.24 K/uL (1.2-3.4); MEAN CELL VOLUME 93.9 fL (80-100); MEAN CORPUSCULAR HEMOGLOBIN 30.7 pg (25-34); MEAN CORPUSCULAR HGB CONC 32.7 g/dl (32-36); MEAN PLATELET VOLUME 10.5 fL (7.4-10.4); MONO % 7.5 %; PLATELET COUNT 225 K/uL (130-400); RED BLOOD COUNT 3.94 M/uL (4.2-5.4); WHITE BLOOD COUNT 5.77 K/uL (4.8-10.8)
[2017-03-01 06:41] LABS: BUN/CREATININE RATIO 12.4 (10-20); CALCIUM 8.8 mg/dl (8.5-10.1); CREATININE 0.66 mg/dl (0.60-1.20); POTASSIUM 3.8 mmol/L (3.5-5.1)
[2017-03-01 07:48] VITALS: BP 100/60; PULSE 73; TEMP 36.9; O2SAT 98
[2017-03-01] MEDS: ENOXAPARIN 40 MG/0.4 ML SYR SQ SCH (08:38)
--- NOTE | 2017-03-01 09:02 | Gastroenterology Progress Note ---
Progress Note Date of Service: Mar 01, 2017 Subjective Pt evaluation today including: conversation w/ patient, physical exam, chart review, lab review Pt seen and evaluated, chart reviewed. No acute events overnight. Pt presented with abd pain, nausea, vomiting, elevated lipase. Was started on antiemetics, analgesia, fluids w/ control of symptoms. Trial of clear liquids yesterday was tolerated, but pt was made NPO overnight in event of ERCP today. Pt is feeling well, no longer having any abdominal pain, nausea, vomiting. Is moving bowels, semi-formed. No black or bloody stools. EGD 10/21/16: Gastritis. EUS 10/21/16 for f/u pancreatitis: Normal Ampulla, CBD 9 mm, adherent sludge was seen in the distal common bile duct, Normal pancreas. Sonogram in 07/2016 showed CBD 1.2cm. Review of Systems Constitutional: No fever Respiratory: No cough, No shortness of breath Cardiac: No chest pain Abdomen: No pain, No nausea, No vomiting, No diarrhea, No constipation, No GI bleeding Medications Current Inpatient Medications Medications (Trade) Dose Ordered Sig/Azucena Route Start Time Stop Time Status Last Admin Dose Admin Enoxaparin Sodium (Lovenox Inj) 40 mg DAILY SQ 03/01/17 09:00 03/31/17 08:59 03/01/17 08:38 40 MG Ondansetron HCl (Zofran Inj) 4 mg Q6H PRN IV 02/28/17 12:00 03/30/17 11:59 Albuterol (Ventolin Hfa Inhaler) 2 puffs Q6H INH 02/28/17 12:00 03/30/17 11:59 Artificial Tears (Artificial Tears) 1 drops QID PRN OP 02/28/17 12:00 03/30/17 11:59 Simethicone (Mylicon Chew Tab) 80 mg Q6H PRN PO 02/28/17 12:00 03/30/17 11:59 Lorazepam (Ativan Tab) 0.5 mg TID PRN PO 02/28/17 12:15 03/30/17 12:14 Zolpidem Tartrate (Ambien Tab) 5 mg HS PRN PO 02/28/17 12:15 03/30/17 12:14 Morphine Sulfate (MoRPHine SULFATE INJ) 2 mg Q4H PRN IV 02/28/17 12:15 03/14/17 12:14 Acetaminophen (Tylenol Tab) 650 mg Q6H PRN PO 02/28/17 12:15 03/30/17 12:14 Miscellaneous Information (Order Awaiting Action) 1 ea QS N/A 02/28/17 16:00 03/30/17 15:59 Lactated Ringer's 1,000 ml @ 150 mls/hr Q6H40M IV 02/28/17 16:30 03/30/17 16:29 03/01/17 07:25 150 MLS/HR Objective Vital Signs Date Time Temp Pulse Resp B/P (MAP) Pulse Ox O2 Delivery O2 Flow Rate FiO2 03/01/17 08:00 Room Air 03/01/17 07:48 36.9 73 20 100/60 (73) 98 Room Air 03/01/17 00:00 Room Air 02/28/17 23:54 36.7 54 16 102/65 (77) 96 Room Air 02/28/17 20:00 Room Air 02/28/17 16:01 95 Room Air 02/28/17 15:36 36.4 56 18 110/64 (79) 96 Room Air 02/28/17 14:43 36.5 58 18 111/65 95 Room Air 02/28/17 10:01 58 16 111/65 95 Room Air Physical Exam General Appearance: no apparent distress Eyes: PERRL ENT: hearing grossly normal Neck: supple Respiratory/Chest: lungs clear, normal breath sounds Cardiovascular: regular rate, rhythm Abdomen: normal bowel sounds, non tender, soft Neurologic/Psych: alert, normal mood/affect, oriented x 3 Skin: normal color Laboratory Results Last 24 Hours Test 02/28/17 12:51 03/01/17 05:43 Prothrombin Time 10.7 SECONDS Prothromb Time International Ratio 1.0 White Blood Count 5.77 K/uL Red Blood Count 3.94 M/uL Hemoglobin 12.1 g/dL Hematocrit 37.0 % Mean Corpuscular Volume 93.9 fL Mean Corpuscular Hemoglobin 30.7 pg Mean Corpuscular Hemoglobin Concent 32.7 g/dl Platelet Count 225 K/uL Mean Platelet Volume 10.5 fL Neutrophils (%) (Auto) 49.0 % Lymphocytes (%) (Auto) 38.8 % Monocytes (%) (Auto) 7.5 % Eosinophils (%) (Auto) 3.6 % Basophils (%) (Auto) 0.9 % Neutrophils # (Auto) 2.83 K/uL Lymphocytes # (Auto) 2.24 K/uL Monocytes # (Auto) 0.43 K/uL Eosinophils # (Auto) 0.21 K/uL Basophils # (Auto) 0.05 K/uL RDW Standard Deviation 42.8 fL RDW Coefficient of Variation 12.4 % Immature Granulocyte % (Auto) 0.2 % Immature Granulocyte # (Auto) 0.01 K/uL Sodium Level 141 mmol/L Potassium Level 3.8 mmol/L Chloride Level 109 mmol/L Carbon Dioxide Level 27 mmol/L Anion Gap 5.0 mmol/L Blood Urea Nitrogen 8 mg/dl Creatinine 0.66 mg/dl Est Creatinine Clear Calc Drug Dose 93.0 ml/min Estimated GFR () 100.2 Estimated GFR (Non- 86.4 BUN/Creatinine Ratio 12.4 Random Glucose 93 mg/dl Calcium Level 8.8 mg/dl Assessment and Plan Patient is a 76 year old female with Hx of cholecystectomy in the past. Had recurrent episodes of mild acute pancreatitis. Her CBD is 1.2cm on sonogram and 9mm on EUS and there is sludge in CBD on EUS. She has elevated AST/ALT now. No fever or leukocytosis to suggest cholangitis. Currently being treated for acute pancreatitis, her pain resolved and feels hungry. BUN normal and no significant hemoconcentration.This is mild acute pancreatitis. 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 She agrees for ERCP, I explained she is at increased risk of post ERCP pancreatitis in view of suspected SOD and current pancreatitis, she understood and agreed. Clinically improving. Will trial clear liquid, plan for ERCP tomorrow. LR 150 cc Antiemetics prn Analgesia prn Clear liquid today NPO after midnight for ERCP for sphincterotomy tomorrow I have seen and evaluated the patient. She is presented on several occasions over the past year with elevated liver enzymes and mild pancreatitis. 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 In the past we did discuss the role of ERCP with biliary sphincterotomy. I discussed the risks of the procedure to include bleeding, infection, perforation, pain and a 25% chance of post-ERCP pancreatitis. Plan ERCP with biliary sphincterotomy Nothing by mouth at midnight Preoperative LR 1 liter + Indocin during the procedure. .
[2017-03-01] MEDS: GUAIFENESIN SUGAR FREE 100 MG/5 ML UDC PO PRN (11:54)
--- NOTE | 2017-03-01 14:58 | Anesthesiology Progress Note ---
Anesthesia Progress Note Date of Service Mar 01, 2017. Progress Notes Ms. Nava is slated for ERCP tomorrow with Dr. Figueroa. Allergies as listed above. No anesthetic problems with her prior surgery. PMH significant for asthma , GERD (well controlled), HLD, NIDDM, hx/o breast CA and recent pancreatitis. EKG shows nonspecific ST abnormalities. Labs WNL. MP 2 airway with small chips on her front teeth. Patient instructed to be NPO after midnight. Anesthetic plan discussed and plan for GETA. All questions answered. Consent obtained.
[2017-03-01 15:01] VITALS: BP 129/74; PULSE 92; TEMP 36.7; O2SAT 96
[2017-03-01 16:01] VITALS: O2SAT 96
--- NOTE | 2017-03-01 21:51 | Progress Note ---
Internal Med Progress Note Date of Service: Mar 01, 2017. Provider Documentation: SUBJECTIVE: feels much better today has minimum abdominal pain , no nausea no fever or chills scheduled for ERCP tomorrow OBJECTIVE: Vital Signs-as noted below Exam: General-very pleasant well appearing female , no sign of distress , appears to be younger than her stated age Eyes-sclera non icteric , PERRLA/EOMI ENT-moist oral mucosa , normal oropharynx Neck-no thyromegaly , trachea midline Lungs-clear to auscultate, no wheeze or rales Heart-regular S1/S2 Abdomen-soft, mild epigastric tenderness, bowel sound active Extremities-no lower ext edema , no rash or deformity Neuro-AAO x3, no focal neurological deficit Lab data as noted below. ASSESSMENT & PLAN: RECURRENT PANCREATITIS : s/p Cholecystectomy in 2012 had 5 episodes of pancreatitis. MRCP of abdomen on 07/2016 showed dilated CBD but no stones. Later had EUS which showed sludge in the CBD pt was reluctant to do ERCP recent bout of pancreatitis few weeks back presented with sudden onset of abdominal pain , nausea Lipase was elevated > [id number] pt was kept NPO , pain management , ordered for IV fluids Lipase level improved to 300 , with improvement of GI symptom appreciate input form GI plan for ERCP tomorrow DVT PROPHYLAXIS scd and teds avoid pharmacological anticoagulation for ERCP in AM DISPOSITION expected to be discharged home when medically stable Vital Signs: Date Time Temp Pulse Resp B/P (MAP) Pulse Ox O2 Delivery O2 Flow Rate FiO2 03/02/17 07:42 36.6 47 20 107/63 (78) 97 Room Air 03/02/17 00:22 36.5 56 18 133/64 97 Room Air 03/01/17 23:51 36.5 56 18 133/64 (87) 97 Room Air 03/01/17 23:35 Room Air 03/01/17 16:01 96 Room Air 03/01/17 15:01 36.7 92 20 129/74 (92) 96 Room Air Free Flow/[place] Lab Results: Results Past 24 Hours Test 03/01/17 15:33 03/02/17 06:39 Range/Units Lipase 395 266 73-393 U/L White Blood Count 5.51 4.8-10.8 K/uL Red Blood Count 3.59 4.2-5.4 M/uL Hemoglobin 11.0 12.0-16.0 g/dL Hematocrit 33.8 37-47 % Mean Corpuscular Volume 94.2 80-100 fL Mean Corpuscular Hemoglobin 30.6 25-34 pg Mean Corpuscular Hemoglobin Concent 32.5 32-36 g/dl RDW Standard Deviation 41.9 36.4-46.3 fL RDW Coefficient of Variation 12.3 11.5-14.5 % Platelet Count 205 130-400 K/uL Mean Platelet Volume 10.5 7.4-10.4 fL Sodium Level 143 136-145 mmol/L Potassium Level 3.5 3.5-5.1 mmol/L Chloride Level 110 98-107 mmol/L Carbon Dioxide Level 28 21-32 mmol/L Anion Gap 6.0 3-11 mmol/L Blood Urea Nitrogen 6 7-18 mg/dl Creatinine 0.69 0.60-1.20 mg/dl Est Creatinine Clear Calc Drug Dose 89.0 ml/min Estimated GFR () 98.7 Estimated GFR (Non- 85.2 BUN/Creatinine Ratio 9.2 10-20 Random Glucose 100 70-99 mg/dl Calcium Level 8.8 8.5-10.1 mg/dl Magnesium Level 1.8 1.8-2.4 mg/dl Total Creatine Kinase 104 26-192 U/L Creatine Kinase MB 1.4 0.5-3.6 ng/ml Creatine Kinase MB Ratio 1.3 0-3.0 Troponin I < 0.015 0-0.045 ng/ml
[2017-03-01 23:51] VITALS: BP 133/64; PULSE 56; TEMP 36.5; O2SAT 97
[2017-03-02] MEDS ORDERED: ALBUTEROL HFA 8 GM INHALER INH PRN
[2017-03-02 00:22] VITALS: BP 133/64; PULSE 56; TEMP 36.5; O2SAT 97
[2017-03-02] MEDS: LACTATED RINGER'S 1000ML 1,000 ML IV SCH ×4 (00:46→22:24)
[2017-03-02] MEDS: GUAIFENESIN SUGAR FREE 100 MG/5 ML UDC PO PRN (05:49)
[2017-03-02] MEDS ORDERED: INDOMETHACIN 50 MG SUPP PR SCH (06:00)
[2017-03-02 07:13] LABS: HEMATOCRIT 33.8 % (37-47); MEAN CELL VOLUME 94.2 fL (80-100); MEAN CORPUSCULAR HEMOGLOBIN 30.6 pg (25-34); MEAN CORPUSCULAR HGB CONC 32.5 g/dl (32-36); MEAN PLATELET VOLUME 10.5 fL (7.4-10.4); PLATELET COUNT 205 K/uL (130-400); RED BLOOD COUNT 3.59 M/uL (4.2-5.4); WHITE BLOOD COUNT 5.51 K/uL (4.8-10.8)
[2017-03-02 07:42] VITALS: BP 107/63; PULSE 47; TEMP 36.6; O2SAT 97
[2017-03-02 07:50] LABS: BUN/CREATININE RATIO 9.2 (10-20); CALCIUM 8.8 mg/dl (8.5-10.1); CREATININE 0.69 mg/dl (0.60-1.20); MAGNESIUM 1.8 mg/dl (1.8-2.4); POTASSIUM 3.5 mmol/L (3.5-5.1)
[2017-03-02 08:00] VITALS: O2SAT 97
[2017-03-02] MEDS: ENOXAPARIN 40 MG/0.4 ML SYR SQ SCH (09:00)
[2017-03-02 09:12] LABS: CKMB/CK RATIO 1.3 (0-3.0)
--- NOTE | 2017-03-02 09:24 | Progress Note ---
Progress Note Date of Service Mar 02, 2017. (Cynthia Jordan ., FRIEDA) Progress Note Pt was seen and evaluated, chart reviewed. Was NPO for ERCP today. This AM nurses noted that pt was hypotensive and bradycardiac w/ pulse in 40's. Hospitalist was notified and was arranging EKG. Pt notes she did not sleep well last night and was up talking to a friend. She denies any chest pain but questions if she had SOB overnight. She tells me she "feels funny". Currently, no CP, SOB. She notes abdominal bloating, she is passing gas. Had a BM yesterday , it was loose. No black, bloody stools. No abd pain. No longer having nausea, vomiting. She is afebrile, BP 107/63 w/ pulse 47. No acute distress. Bradycardiac, regular rhythm. Lungs clear. Abd, soft and nondistended w/ bowel sounds x 4. No lower extremity edema. Keep NPO for ERCP pending results of EKG. (Cynthia Jordan ., FRIEDA) I saw and evaluated the patient. She had an episode of hypotension and bradycardia this morning and we have therefore held the procedure that was plan for this afternoon. The patient will either be rescheduled for later in this hospital admission or sometime in the next few weeks as it is an elective procedure (Blair Figueroa, DO)
[2017-03-02] MEDS ORDERED: POTASSIUM CHLORIDE 10 MEQ TABCR PO STA (09:59)
[2017-03-02 15:43] VITALS: BP 101/62; PULSE 49; TEMP 36.7; O2SAT 98
--- NOTE | 2017-03-02 16:15 | ECHOCARDIOGRAM REPORT ---
*NOTICE TO RECEIVING [employer] This information is strictly Confidential and protected under [place] law. [place] law prohibits you from making any further disclosure of this information unless further disclosure is expressly permitted by the written consent of the person to whom it pertains or is authorized by law. A general authorization for the release of medical or other information is not sufficient for this purpose. Hospital accepts no responsibility if the information is made available to any other person, INCLUDING THE PATIENT. Interpretation Summary * Name: SRINI SILVEIRA Study Date: 03/02/2017 11:08 AM BP: 107/63 mmHg * Patient Location: [facility]\S\N282\S\1 HR: 52 * : 1940 (M/d/yyyy) Gender: Female Height: 75 in * Age: 76 yrs Ethnicity: [place] Weight: 196 lb * Ordering Physician: Antonio Payne * Referring Physician: Self, Referred * Performed By: Kiara Obregon RCS * * Reason For Study: CHEST PAIN * BSA: 2.2 m2 * The study was technically adequate. * Compared to prior study, there is no significant change. * -- Conclusions -- * Ejection Fraction = 60-65%. * There is mild concentric left ventricular hypertrophy. * Trace aortic regurgitation. * There is mild tricuspid regurgitation. * Doppler findings do not suggest pulmonary hypertension. Procedure Details * A complete two-dimensional transthoracic echocardiogram was performed (2D, M-mode, Doppler and color flow Doppler). Left Ventricle * The left ventricle is normal in size. * There is mild concentric left ventricular hypertrophy. * Left ventricular systolic function is normal. * Ejection Fraction = 60-65%. * The left ventricular wall motion is normal. Right Ventricle * The right ventricle is normal size. * The right ventricular systolic function is normal as assessed by tricuspid annular plane systolic excursion (TAPSE) (normal >1.5 cm). Atria * The left atrial size is normal. * Right atrial size is normal. * There is no evidence of atrial septal defect, but resolution does not allow assessment for a patent foramen ovale. Mitral Valve * The mitral valve is normal. * There is no mitral valve stenosis. * Significant mitral regurgitation is absent. Tricuspid Valve * The tricuspid valve is normal. * There is no tricuspid stenosis. * There is mild tricuspid regurgitation. * Doppler findings do not suggest pulmonary hypertension. Aortic Valve * The aortic valve is trileaflet. * Aortic stenosis is absent. * Trace aortic regurgitation. Pulmonic Valve * The pulmonary valve is not well seen, but the Doppler examination is normal without significant regurgitation or stenosis. Great Vessels * The aortic root is normal size. Pericardium/Pleural * There is no pericardial effusion. Great Vessels * Dilated inferior vena cava with reduced collapsability with sniff indicates an elevated right atrial pressure of 15 mmHg Left Ventricular Diastolic Function * Diastolic dysfunction, Grade II (pseudonormalization pattern). MMode 2D Measurements and Calculations IVSd 1.1 cm IVSs 1.5 cm LVIDd 4.2 cm LVIDs 2.8 cm LVPWd 1.2 cm LVPWs 1.6 cm IVS/LVPW 0.95 FS 33.8 % EDV(Teich) 79.0 ml ESV(Teich) 29.2 ml EF(Teich) 63.0 % EDV(cubed) 74.6 ml ESV(cubed) 21.7 ml EF(cubed) 70.9 % % IVS thick 35.7 % % LVPW thick 36.9 % LV mass(C)d 163.5 grams LV mass(C)dI 75.2 grams/m\S\2 LV mass(C)s 150.4 grams LV mass(C)sI 69.1 grams/m\S\2 SV(Teich) 49.8 ml SI(Teich) 22.9 ml/m\S\2 SV(cubed) 52.9 ml SI(cubed) 24.3 ml/m\S\2 Ao root diam 3.6 cm Ao root area 10.4 cm\S\2 ACS 2.3 cm LA dimension 3.5 cm LA/Ao 0.95 LVOT diam 2.0 cm LVOT area 3.3 cm\S\2 LVAd ap4 30.9 cm\S\2 LVLd ap4 7.2 cm EDV(MOD-sp4) 107.8 ml EDV(sp4-el) 112.1 ml LVAs ap4 18.5 cm\S\2 LVLs ap4 5.8 cm ESV(MOD-sp4) 47.5 ml ESV(sp4-el) 49.9 ml EF(MOD-sp4) 55.9 % EF(sp4-el) 55.5 % LVAd ap2 34.5 cm\S\2 LVLd ap2 7.3 cm EDV(MOD-sp2) 133.5 ml EDV(sp2-el) 137.5 ml LVAs ap2 18.4 cm\S\2 LVLs ap2 6.1 cm ESV(MOD-sp2) 47.1 ml ESV(sp2-el) 47.2 ml EF(MOD-sp2) 64.7 % EF(sp2-el) 65.6 % LVLd %diff 1.5 % EDV(MOD-bp) 120.4 ml LVLs %diff 4.1 % ESV(MOD-bp) 48.0 ml EF(MOD-bp) 60.1 % SV(MOD-sp4) 60.3 ml SI(MOD-sp4) 27.7 ml/m\S\2 SV(MOD-sp2) 86.4 ml SI(MOD-sp2) 39.7 ml/m\S\2 SV(MOD-bp) 72.4 ml SI(MOD-bp) 33.3 ml/m\S\2 SV(sp4-el) 62.2 ml SI(sp4-el) 28.6 ml/m\S\2 SV(sp2-el) 90.2 ml SI(sp2-el) 41.5 ml/m\S\2 Doppler Measurements and Calculations MV E max racquel 105.7 cm/sec MV A max racquel 82.5 cm/sec MV E/A 1.3 MV P1/2t max racquel 119.1 cm/sec MV P1/2t 73.8 msec MVA(P1/2t) 3.0 cm\S\2 MV dec slope 472.8 cm/sec\S\2 MV dec time 0.18 sec Ao V2 max 110.4 cm/sec Ao max PG 4.9 mmHg Ao max PG (full) 1.1 mmHg ABIGAIL(V,A) 2.9 cm\S\2 ABIGAIL(V,D) 2.9 cm\S\2 LV V1 max PG 3.8 mmHg LV V1 max 97.6 cm/sec PA V2 max 66.4 cm/sec PA max PG 1.8 mmHg PI max racquel 117.3 cm/sec PI max PG 5.5 mmHg PI dec slope 59.8 cm/sec\S\2 PI P1/2t 574.3 msec TR max racquel 258.0 cm/sec
--- NOTE | 2017-03-02 16:32 | Progress Note ---
Internal Med Progress Note Date of Service: Mar 02, 2017. Provider Documentation: SUBJECTIVE: still has nausea and abdominal discomfort could not sleep well last night has bradycardia but denies any chest pain or sob afebrile resting comfortably OBJECTIVE: Vital Signs-as noted below Exam: General-alert and awake and oriented ENT-normal hearing Neck-no neck masses Lungs-cta b/l no wheezing or crackles Heart-s1 and s2 heard bradycardia no murmurs Abdomen-soft BS present mild epigastric discomfort no distension Extremities-no edema no erythema Neuro-alert and awake moves extremities Lab data as noted below. ASSESSMENT & PLAN: RECURRENT PANCREATITIS : s/p Cholecystectomy in 2012 had 5 episodes of pancreatitis. MRCP of abdomen on 07/2016 showed dilated CBD but no stones. Later had EUS which showed sludge in the CBD recent bout of pancreatitis few weeks back presented with sudden onset of abdominal pain , nausea Lipase was elevated > 56385 currently on clears, iv fluids and iv pain meds lipase normalized GI on board and plan for ercp which was held today secondary to bradycardia Sinus Bradycardia not on rate limiting drugs ekg shows sinus bradycardia from pain meds? not received recently vaso vagal? Ce negative. Will f/u echo and monitor DVT PROPHYLAXIS scd and teds DISPOSITION to be determined Vital Signs: Date Time Temp Pulse Resp B/P (MAP) Pulse Ox O2 Delivery O2 Flow Rate FiO2 03/02/17 15:43 36.7 49 16 101/62 (75) 98 Room Air 03/02/17 08:00 97 Room Air 03/02/17 07:42 36.6 47 20 107/63 (78) 97 Room Air 03/02/17 00:22 36.5 56 18 133/64 97 Room Air 03/01/17 23:51 36.5 56 18 133/64 (87) 97 Room Air 03/01/17 23:35 Room Air Lab Results: Results Past 24 Hours Test 03/02/17 06:39 03/02/17 15:55 Range/Units White Blood Count 5.51 4.8-10.8 K/uL Red Blood Count 3.59 4.2-5.4 M/uL Hemoglobin 11.0 12.0-16.0 g/dL Hematocrit 33.8 37-47 % Mean Corpuscular Volume 94.2 80-100 fL Mean Corpuscular Hemoglobin 30.6 25-34 pg Mean Corpuscular Hemoglobin Concent 32.5 32-36 g/dl RDW Standard Deviation 41.9 36.4-46.3 fL RDW Coefficient of Variation 12.3 11.5-14.5 % Platelet Count 205 130-400 K/uL Mean Platelet Volume 10.5 7.4-10.4 fL Sodium Level 143 136-145 mmol/L Potassium Level 3.5 3.5-5.1 mmol/L Chloride Level 110 98-107 mmol/L Carbon Dioxide Level 28 21-32 mmol/L Anion Gap 6.0 3-11 mmol/L Blood Urea Nitrogen 6 7-18 mg/dl Creatinine 0.69 0.60-1.20 mg/dl Est Creatinine Clear Calc Drug Dose 89.0 ml/min Estimated GFR () 98.7 Estimated GFR (Non- 85.2 BUN/Creatinine Ratio 9.2 10-20 Random Glucose 100 70-99 mg/dl Calcium Level 8.8 8.5-10.1 mg/dl Magnesium Level 1.8 1.8-2.4 mg/dl Total Creatine Kinase 104 26-192 U/L Creatine Kinase MB 1.4 0.5-3.6 ng/ml Creatine Kinase MB Ratio 1.3 0-3.0 Troponin I < 0.015 0-0.045 ng/ml Lipase 266 73-393 U/L
[2017-03-03 00:03] VITALS: BP 147/66; PULSE 59; TEMP 36.7; O2SAT 96
[2017-03-03] MEDS: LACTATED RINGER'S 1000ML 1,000 ML IV SCH (05:44)
[2017-03-03 07:15] LABS: BUN/CREATININE RATIO 9.4 (10-20); CALCIUM 8.7 mg/dl (8.5-10.1); CREATININE 0.62 mg/dl (0.60-1.20); MAGNESIUM 1.7 mg/dl (1.8-2.4); POTASSIUM 3.5 mmol/L (3.5-5.1)
[2017-03-03] MEDS ORDERED: POTASSIUM CHLORIDE 20 MEQ TABCR PO ONE (07:45)
[2017-03-03] MEDS: ENOXAPARIN 40 MG/0.4 ML SYR SQ SCH (08:00)
[2017-03-03] MEDS ORDERED: MAGNESIUM OXIDE 400 MG TAB PO SCH (08:00)
[2017-03-03 08:22] VITALS: BP 121/71; PULSE 52; TEMP 36.5; O2SAT 95
--- NOTE | 2017-03-03 09:00 | Gastroenterology Progress Note ---
Progress Note Date of Service: Mar 03, 2017 Subjective Pt seen and evaluated, chart reviewed. No acute events overnight. Continues to be bradycardic. No CP, SOB. She notes she wants to go home. Does not feel like it is worth it to spend another day or ERCP 03/04/17. I advised we are unable to hold this spot for her if she is to be discharge. Likely would be scheduled as an outpatient April. She denies epigastric pain, nausea, vomiting. Does have lower abd cramping, distention and diarrhea. No fever, chills, CP, SOB. ECHO 03/03/17: Ejection Fraction = 60-65%. There is mild concentric left ventricular hypertrophy. Trace aortic regurgitation. There is mild tricuspid regurgitation. Doppler findings do not suggest pulmonary hypertension. EGD 10/21/16: Gastritis. EUS 10/21/16 for f/u pancreatitis: Normal Ampulla, CBD 9 mm, adherent sludge was seen in the distal common bile duct, Normal pancreas. Sonogram in 07/2016 showed CBD 1.2cm. Review of Systems Constitutional: No fever, No chills Respiratory: No cough, No shortness of breath Cardiac: No chest pain Abdomen: + diarrhea, No pain, No nausea, No vomiting, No constipation, No GI bleeding Medications Current Inpatient Medications Medications (Trade) Dose Ordered Sig/Azucena Route Start Time Stop Time Status Last Admin Dose Admin Enoxaparin Sodium (Lovenox Inj) 40 mg DAILY SQ 03/01/17 09:00 03/31/17 08:59 03/01/17 08:38 40 MG Ondansetron HCl (Zofran Inj) 4 mg Q6H PRN IV 02/28/17 12:00 03/30/17 11:59 03/03/17 03:02 4 MG Artificial Tears (Artificial Tears) 1 drops QID PRN OP 02/28/17 12:00 03/30/17 11:59 Simethicone (Mylicon Chew Tab) 80 mg Q6H PRN PO 02/28/17 12:00 03/30/17 11:59 03/02/17 05:49 80 MG Lorazepam (Ativan Tab) 0.5 mg TID PRN PO 02/28/17 12:15 03/30/17 12:14 03/02/17 12:50 0.5 MG Zolpidem Tartrate (Ambien Tab) 5 mg HS PRN PO 02/28/17 12:15 03/30/17 12:14 Morphine Sulfate (MoRPHine SULFATE INJ) 2 mg Q4H PRN IV 02/28/17 12:15 03/14/17 12:14 Acetaminophen (Tylenol Tab) 650 mg Q6H PRN PO 02/28/17 12:15 03/30/17 12:14 Miscellaneous Information (Order Awaiting Action) 1 ea QS N/A 02/28/17 16:00 03/30/17 15:59 Lactated Ringer's 1,000 ml @ 150 mls/hr Q6H40M IV 02/28/17 16:30 03/30/17 16:29 03/03/17 05:44 150 MLS/HR Guaifenesin (Robitussin Sugar Free Syrup) 100 mg Q6H PRN PO 03/01/17 10:30 03/31/17 10:29 03/02/17 05:49 100 MG Albuterol (Ventolin Hfa Inhaler) 2 puffs Q6H PRN INH 03/02/17 00:00 03/30/17 11:59 Magnesium Oxide (Mag-Ox Tab) 400 mg BID PO 03/03/17 08:00 04/02/17 07:59 03/03/17 08:08 400 MG Objective Vital Signs Date Time Temp Pulse Resp B/P (MAP) Pulse Ox O2 Delivery O2 Flow Rate FiO2 03/03/17 08:22 36.5 52 18 121/71 (88) 95 Room Air 03/03/17 08:10 Room Air 03/03/17 00:03 36.7 59 20 147/66 (93) 96 Room Air 03/02/17 23:15 Room Air 03/02/17 16:00 Room Air 03/02/17 15:43 36.7 49 16 101/62 (75) 98 Room Air Physical Exam General Appearance: no apparent distress Eyes: PERRL ENT: hearing grossly normal Neck: supple Respiratory/Chest: lungs clear Cardiovascular: regular rate, rhythm Abdomen: normal bowel sounds, soft, no organomegaly, + distended Neurologic/Psych: alert, normal mood/affect, oriented x 3 Skin: normal color Laboratory Results Last 24 Hours Test 03/02/17 15:55 03/03/17 05:54 12/6/17 08:51 Troponin I < 0.015 ng/ml Sodium Level 142 mmol/L Potassium Level 3.5 mmol/L Chloride Level 110 mmol/L Carbon Dioxide Level 26 mmol/L Anion Gap 6.0 mmol/L Blood Urea Nitrogen 6 mg/dl Creatinine 0.62 mg/dl Est Creatinine Clear Calc Drug Dose 99.0 ml/min Estimated GFR () 102.2 Estimated GFR (Non- 88.2 BUN/Creatinine Ratio 9.4 Random Glucose 93 mg/dl Calcium Level 8.7 mg/dl Magnesium Level 1.7 mg/dl Lipase 155 U/L Assessment and Plan Patient is a 76 year old female with Hx of cholecystectomy in the past. Had recurrent episodes of mild acute pancreatitis. Her CBD is 1.2cm on sonogram and 9mm on EUS and there is sludge in CBD on EUS. She has elevated AST/ALT now. No fever or leukocytosis to suggest cholangitis. Currently being treated for acute pancreatitis, her pain resolved and feels hungry. BUN normal and no significant hemoconcentration.This is mild acute pancreatitis. 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 She agrees for ERCP, I explained she is at increased risk of post ERCP pancreatitis in view of suspected SOD and current pancreatitis, she understood and agreed. Clinically improving. Pt wants to go home today, does not want to be in hospital any longer for ERCP 03/04/17. Please call with any changes. [facility] will arrange ERCP as outpatient. GI to sign off. Please call with any questions or concerns. I saw and evaluated the patient this afternoon. She is not certain if she would like to stay in the hospital for ERCP. If the patient is discharged we are happy to arrange this would most likely be within 6-8 weeks depending on availability at [facility]. .
[2017-03-03 11:00] LABS: LYME DISEASE AB IGG NEG (NEG); LYME DISEASE AB IGM NEG (NEG)
--- NOTE | 2017-03-03 11:11 | DIAGNOSTIC IMAGING REPORT ---
[facility] CLINICAL HISTORY: abd distention, cramping COMPARISON STUDY: 02/09/2017 FINDINGS: There are surgical clips within the right upper quadrant consistent with a prior cholecystectomy. There is no pathologic bowel dilatation. There is a stable rim calcification within the left upper quadrant.. Pelvic basin calcifications likely represent phleboliths. There are radiopaque densities in the region of the gastric antrum/duodenal bulb, likely representing bone fragments. IMPRESSION: No evidence of pathologic bowel dilatation Electronically signed by: Vincent Lezama M.D. 03/03/2017 11:10 AM Dictated Date/Time: 03/03/2017 11:08 AM
[2017-03-03 11:54] VITALS: BP 121/71; PULSE 52; TEMP 36.5; O2SAT 95
--- NOTE | 2017-03-03 13:04 | Discharge Instructions ---
Discharge Instructions Date of Service Mar 03, 2017. Admission Reason for Admission: Abdominal Pain Discharge Discharge Diagnosis / Problem: pancreatitis, bradycardia Discharge Goals Goal(s): Decrease discomfort, Improve function Activity Recommendations Activity Limitations: resume your previous activity . Instructions / Follow-Up Instructions / Follow-Up FOLLOWUP WITH FAMILY DOCTOR ON Feb AT 9:45AM FOLLOWUP WITH GI SCHEDULED IN 6-8 WEEKS FOR ERCP. FOLLOWUP WITH FAMILY DOCTOR FOR LOW PULSE. REPORT TO ER FOR ANY CHANGE IN MEDICAL CONDITION Current Hospital Diet Patient's current hospital diet: Full Liquid Diet Discharge Diet Recommended Diet: Low Fiber Diet (SOFT DIET FOR FEW DAYS) Pending Studies Studies pending at discharge: no Medical Emergencies . Who to Call and When: Medical Emergencies: If at any time you feel your situation is an emergency, please call 911 immediately. . Non-Emergent Contact Non-Emergency issues call your: Primary Care Provider . . "Provider Documentation" section prepared by Antonio Payne. . VTE Core Measure Inpt VTE Proph given/why not?: Enoxaparin (Lovenox)SQ
--- NOTE | 2017-03-03 19:14 | Progress Note ---
Internal Med Progress Note Date of Service: Mar 03, 2017. Provider Documentation: SUBJECTIVE: resting comfortably tolerating full liquid diet no abdominal pain no chest pain or sob wants to go home OBJECTIVE: Vital Signs-as noted below Exam: General-alert and awake and oriented ENT-normal hearing Neck-no neck masses Lungs-cta b/l no wheezing or crackles Heart-s1 and s2 heard bradycardia no murmurs Abdomen-soft BS present mild epigastric discomfort no distension Extremities-no edema no erythema Neuro-alert and awake moves extremities Lab data as noted below. ASSESSMENT & PLAN: RECURRENT PANCREATITIS : s/p Cholecystectomy in 2012 had 5 episodes of pancreatitis. MRCP of abdomen on 07/2016 showed dilated CBD but no stones. Later had EUS which showed sludge in the CBD recent bout of pancreatitis few weeks back presented with sudden onset of abdominal pain , nausea Lipase was elevated > 50260 currently on clears, iv fluids and iv pain meds lipase normalized improved patient wants to follow with GI as out patient for ercp Sinus Bradycardia not on rate limiting drugs ekg shows sinus bradycardia with rate of 49 from pain meds? not received recently vaso vagal? Ce negative. echo unremarkable lyme negative asymptomatic f/u with pcp discharged home Vital Signs: Date Time Temp Pulse Resp B/P (MAP) Pulse Ox O2 Delivery O2 Flow Rate FiO2 03/03/17 11:54 36.5 52 18 95 Room Air 03/03/17 08:22 36.5 52 18 121/71 (88) 95 Room Air 03/03/17 08:10 Room Air 03/03/17 00:03 36.7 59 20 147/66 (93) 96 Room Air 03/02/17 23:15 Room Air Lab Results: Results Past 24 Hours Test 03/03/17 05:54 03/03/17 09:27 Range/Units Sodium Level 142 136-145 mmol/L Potassium Level 3.5 3.5-5.1 mmol/L Chloride Level 110 98-107 mmol/L Carbon Dioxide Level 26 21-32 mmol/L Anion Gap 6.0 3-11 mmol/L Blood Urea Nitrogen 6 7-18 mg/dl Creatinine 0.62 0.60-1.20 mg/dl Est Creatinine Clear Calc Drug Dose 99.0 ml/min Estimated GFR () 102.2 Estimated GFR (Non- 88.2 BUN/Creatinine Ratio 9.4 10-20 Random Glucose 93 70-99 mg/dl Calcium Level 8.7 8.5-10.1 mg/dl Magnesium Level 1.7 1.8-2.4 mg/dl Lipase 155 73-393 U/L Lyme Disease IgG Antibody NEG NEG Lyme Disease IgM Antibody NEG NEG
--- NOTE | 2017-03-03 19:19 | Discharge Summary ---
Discharge Summary Date of Service Mar 03, 2017. 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 (10) Melanoma Permanent Comment: s/p curative excision biopsy Status: Resolved (11) Osteoporosis Status: Chronic (12) Pancreatitis Status: Chronic Procedures: [facility]: No evidence of pathologic bowel dilatation Consultations: GI Medication Reconciliation Continued Medications: Acetaminophen (Tylenol) 500 Mg Tab 1000 MG PO TID PRN for Headache or Pain, TAB Albuterol Hfa (Ventolin Hfa) 200 Puffs/78323 Mcg Aers 2 PUFFS INH Q6H, #1 INHALER Artificial Tear Solution (Artificial Tears) 1 Khushi Khushi 1 DROPS OP QID PRN for DRYNESS, #15 ML 5 Refills Aspirin (Aspirin Ec) 325 Mg Tab 1-2 TAB PO DAILY PRN for Pain Loperamide Hcl (Imodium) 2 Mg Cap 2 MG PO UD PRN for Diarrhea for 5 Days, CAP take 1 cap after each loose bowel movement as needed (may use maximum of 8 caps in one day) Lorazepam (Ativan) 0.5 Mg Tab 0.5 MG PO TID PRN for Anxiety/Agitation, TAB Melatonin-Pyridoxine (Melatonin) 1 Tab Tab 3 MG PO HS Ondansetron Hcl (Zofran) 4 Mg Tab 4 MG PO Q6 PRN for Nausea, TAB Polyethylene Glycol 3350 (Miralax) 1 Pow Pow 17 GM PO UD PRN for Constipation Simethicone (Simethicone) 125 Mg Cap 1 TAB PO PRN Zolpidem Tartrate (Zolpidem Tartrate) 5 Mg Tab 5 MG PO HS PRN for insomnia, TAB Admission Information HPI (per Admitting provider): 76 yo F with recurrent pancreatitis for the past two years and a recent admission in a [facility] for acute pancreatitis presents to the ER with intolerance to PO, and severe epigastric pain. The pain began last night and progressively got worse. She was only able to sleep for three hours. She reports eating sushi last night and then became sick before bed. She denies any vomiting. She reports chronic constipation and took a Bisacodyl yesterday and ended up with several episodes of diarrhea, for which she then began taking "alot" of Imodium. She also took Zofran, Ativan and Zantac but this didn't help much. Her symptoms progressed this morning. She called her PCP office who advised that she come to the ER. She is currently comfortable after 4mg IV morphine. She denies any fevers or chills, chest pain or shortness of breath. She denies any blood in her stool. is at the bedside. Physical Exam (per Admitting): General Appearance: WD/WN, no apparent distress Head: normocephalic, atraumatic Eyes: normal inspection, PERRL, sclerae normal ENT: hearing grossly normal, pharynx normal Neck: supple, no JVD, trachea midline Respiratory/Chest: lungs clear, normal breath sounds, no respiratory distress, no accessory muscle use Cardiovascular: regular rate, rhythm, no edema, no gallop, no JVD, no murmur , normal peripheral pulses Abdomen/GI: normal bowel sounds, soft, + tenderness (epigastric tenderness) Back: + pertinent finding (no CVA tenderness o r back pain to palpation) Extremities/Musculoskelatal: normal inspection, no pedal edema Neurologic/Psych: bullet slugs inspector II-XII nml as tested, no motor/sensory deficits, alert , normal mood/affect, oriented x 3 Skin: normal color, warm/dry, no rash Hospital Course RECURRENT PANCREATITIS : s/p Cholecystectomy in 2012 had 5 episodes of pancreatitis. MRCP of abdomen on 07/2016 showed dilated CBD but no stones. Later had EUS which showed sludge in the CBD recent bout of pancreatitis few weeks back presented with sudden onset of abdominal pain , nausea Lipase was elevated > 75519 currently on clears, iv fluids and iv pain meds lipase normalized improved patient wants to follow with GI as out patient for ercp Sinus Bradycardia not on rate limiting drugs ekg shows sinus bradycardia with rate of 49 from pain meds? not received recently vaso vagal? Ce negative. echo unremarkable lyme negative asymptomatic f/u with pcp discharged home Total time spent on discharge = 35MINUTES This includes examination of the patient, discharge planning, medication reconciliation, and communication with other providers. Discharge Instructions Discharge Instructions Date of Service Mar 03, 2017. Admission Reason for Admission: Abdominal Pain Discharge Discharge Diagnosis / Problem: pancreatitis, bradycardia Discharge Goals Goal(s): Decrease discomfort, Improve function Activity Recommendations Activity Limitations: resume your previous activity . Instructions / Follow-Up Instructions / Follow-Up FOLLOWUP WITH FAMILY DOCTOR ON Feb AT 9:45AM FOLLOWUP WITH GI SCHEDULED IN 6-8 WEEKS FOR ERCP. FOLLOWUP WITH FAMILY DOCTOR FOR LOW PULSE. REPORT TO ER FOR ANY CHANGE IN MEDICAL CONDITION Current Hospital Diet Patient's current hospital diet: Full Liquid Diet Discharge Diet Recommended Diet: Low Fiber Diet (SOFT DIET FOR FEW DAYS) Pending Studies Studies pending at discharge: no Medical Emergencies . Who to Call and When: Medical Emergencies: If at any time you feel your situation is an emergency, please call 911 immediately. . Non-Emergent Contact Non-Emergency issues call your: Primary Care Provider . . "Provider Documentation" section prepared by Antonio Payne. . VTE Core Measure Inpt VTE Proph given/why not?: Enoxaparin (Lovenox)SQ
== END 2017-03-03 14:15 | disposition home or self-care (01) | DRG 440 ==
LOC: C.EDB 06:46 → C.MED 10:55 → ENRESERV 11:09 → C.MS2W 03-02 20:40 → C.MS4W 03-02 20:46
PROVIDERS: ADMIT Hospitalist; ATTEND Internal Medicine
DX: K86.1 Other chronic pancreatitis (principal); R00.1 Bradycardia, unspecified; J45.909 Unspecified asthma, uncomplicated; Z51.81 Encounter for therapeutic drug level monitoring; Z79.899 Other long term (current) drug therapy; Z85.3 Personal history of malignant neoplasm of breast; Z85.43 Personal history of malignant neoplasm of ovary; Z83.3 Family history of diabetes mellitus; Z82.49 Family history of ischemic heart disease and other diseases of the circulatory system

== ENCOUNTER 2017-06-30 16:09 | Emergency (ER) | payer OTHER, MEDICARE ==
[~2017-06-30] VITALS: Ht 190.5 cm; Wt 88.5 kg
[~2017-06-30 16:09] MED LIST changes: -ALPH600C2 PO; -ALUM-30 PO; +AMB5 PO; -ASCO100061 PO; -ASPI-391 PO; -ASTA1CAP PO; -B-CO1TAB21 PO; -CHOL2000 PO; -COEN1CAP37 PO; -COPPER PO; -FAMO20TA11 PO; -L-ME1CAP3 PO; -LIDO2SOL19 MT; +LORA-741 PO; -LSX20 PO; -MAGN250T22 PO; -MENA1CAP PO; -MILK200C PO; -MULT-506 PO; -OMEG12006 PO; -PRNJ PO; -SELE1TAB5 PO; -SOYBGRA9 PO; -VITATAB19 PO; -VTME400 PO; -ZINC PO; -[UNRECOGNIZED DRUG - CODE] PO
[2017-06-30 16:10] VITALS: TEMP 36.8; Ht 190.5 cm; Wt 88.5 kg
[2017-06-30] MEDS ORDERED: FENTANYL CITRATE INJ 50 MCG/1 ML 2 ML VIAL IV STA (16:21)
[2017-06-30] MEDS ORDERED: ONDANSETRON INJ 2 MG/ML 2 ML VIAL IV STA (16:21)
[2017-06-30] MEDS ORDERED: SODIUM CHLORIDE 0.9% 1000ML 2,000 ML IV STA (16:21)
--- NOTE | 2017-06-30 16:35 | EMERGENCY ROOM VISIT NOTE ---
History Report prepared by Mary: Johana Bolden Under the Supervision of: Dr. Ernesto Hong M.D. First contact with patient: 16:14 Chief Complaint: GI ASSESSMENT Stated Complaint: PANCREATITIS History of Present Illness The patient is a 76 year old female who presents to the Emergency Room with complaints of right upper quadrant abdominal pain beginning 5 days ago. The patient rates the pain at a 9/10. The patient also reports having nausea, constipation, and heavy drooling, and states that this is her second time having symptoms in ten days. The patient reports a history of pancreatitis, a cholecystectomy, and bile sludge. She reports that she started to feel better and was eating normally 4 days ago, but states that yesterday her pain increased and that she was up most of the night secondary to the pain. She states that she called her GI doctor's office today and was told to come here. The patient denies having fevers, a cough, or blood in her urine. The patient reports that she had a sphincterectomy in March that failed, but reports that it was not an emergency sphincterectomy. She also reports that she was in the emergency department around 8 times last year for similar symptoms, and that she was admitted about 4 times. She states that her surgeon is Dr. Figueroa and that her GI doctor is Dr. Terry. The patient denies being on blood thinners. Source of History: patient Onset: 5 days ago Position: abdomen (RUQ) Symptom Intensity: rated at a 9/10 Associated Symptoms: + nausea, No fevers, No cough, No urinary symptoms ( blood in urine ) Review of Systems See HPI for pertinent positives and negatives. A total of ten systems were reviewed and were otherwise negative. 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 (12) Melanoma (13) Osteoporosis (14) Pancreatitis (15) Peripheral neuropathy (16) Sciatica (17) UNSPEC CONSTIPATION Surgical Problems: (1) History of appendectomy (2) History of cholecystectomy (3) History of colonoscopy Family History Diabetes mellitus FHx: cancer FHx: heart disease FHx: lung disease Hypertension Kidney disease Social History Smoking Status: Never Smoker Alcohol Use: occasionally Drug Use: none Marital Status: Housing Status: lives with family Occupation Status: retired Current/Historical Medications Scheduled Albuterol Hfa (Ventolin Hfa), 2 PUFFS INH Q6H Melatonin-Pyridoxine (Melatonin), 3 MG PO HS Simethicone (Simethicone), 1 TAB PO PRN Scheduled PRN Acetaminophen (Tylenol), 1,000 MG PO TID PRN for Headache or Pain Artificial Tear Solution (Artificial Tears), 1 DROPS OP QID PRN for DRYNESS Aspirin (Aspirin Ec), 1-2 TAB PO DAILY PRN for Pain Loperamide Hcl (Imodium), 2 MG PO UD PRN for Diarrhea Lorazepam (Ativan), 0.5 MG PO TID PRN for Anxiety/Agitation Ondansetron Hcl (Zofran), 4 MG PO Q6 PRN for Nausea Polyethylene Glycol 3350 (Miralax), 17 GM PO UD PRN for Constipation Zolpidem Tartrate (Zolpidem Tartrate), 5 MG PO HS PRN for insomnia Allergies Coded Allergies: Statins (Verified Allergy, Intermediate, MUSCLE WEAKNESS, 06/30/17) Tramadol (Verified Allergy, Intermediate, SOB, CHEST PAIN, 06/30/17) HAS TOLERATED MORPHINE Ibandronic Acid (Verified Allergy, Mild, GERD, 06/30/17) Carbamazepine (Verified Allergy, Unknown, pancreatitis, 06/30/17) Proton Pump Inhibitors (Verified Allergy, Unknown, UNKNOWN, 06/30/17) Morphine (Verified Adverse Reaction, Intermediate, GI SYMPTOMS, 06/30/17) PER PATIENT, DRIP OKAY - "NOT PUSHED" Epinephrine (Verified Adverse Reaction, Unknown, DIZZINESS, 06/30/17) Physical Exam Vital Signs Date Time Temp Pulse Resp B/P (MAP) Pulse Ox O2 Delivery O2 Flow Rate FiO2 06/30/17 18:22 54 16 105/61 98 06/30/17 16:10 36.8 72 18 126/78 96 Room Air Physical Exam GENERAL: Awake, alert, well-appearing, in no distress HENT: Normocephalic, atraumatic. Oropharynx unremarkable. EYES: Normal conjunctiva. Sclera non-icteric. NECK: Supple. No nuchal rigidity. FROM. No JVD. RESPIRATORY: Clear to auscultation. CARDIAC: Regular rate, normal rhythm. Extremities warm and well perfused. Pulses equal. ABDOMEN: Soft, non-distended. No tenderness to palpation. No rebound or guarding. No masses. RECTAL: Deferred. MUSCULOSKELETAL: Chest examination reveals no tenderness. The back is symmetrical on inspection without obvious abnormality. There is no CVA tenderness to palpation. No joint edema. LOWER EXTREMITIES: Calves are equal size bilaterally and non-tender. No edema. No discoloration. NEURO: Normal sensorium. No sensory or motor deficits noted. SKIN: No rash or jaundice noted. Medical Decision & Procedures ER Provider Diagnostic Interpretation: Radiology results as stated below per my review and radiologist interpretation: KUB CLINICAL HISTORY: Constipation. FINDINGS: 2 AP supine abdominal radiographs are compared to study dated 03/03/2017 and correlated with abdominal CT dated 08/23/2016. Cholecystectomy clips are identified in the right upper quadrant. No bowel obstruction is seen. Advanced constipation is noted. A large phlebolith is observed in the left hemipelvis. No evidence of intraperitoneal free air is seen on this supine examination. The skeletal structures are osteopenic. Lumbosacral spondylosis is observed. IMPRESSION: Nonobstructed abdominal bowel gas pattern noting severe constipation. Electronically signed by: Giuseppe Thomas M.D. 06/30/2017 5:25 PM Dictated Date/Time: 06/30/2017 5:23 PM Laboratory Results 06/30/17 16:45 Red Blood Count 4.18, Mean Corpuscular Volume 91.4, Mean Corpuscular Hemoglobin 31.3, Mean Corpuscular Hemoglobin Concent 34.3, Mean Platelet Volume 10.0, Neutrophils (%) (Auto) 43.1, Lymphocytes (%) (Auto) 45.4, Monocytes (%) (Auto) 7.5, Eosinophils (%) (Auto) 2.9, Basophils (%) (Auto) 1.1, Neutrophils # (Auto) 2.72, Lymphocytes # (Auto) 2.86, Monocytes # (Auto) 0.47, Eosinophils # (Auto) 0.18, Basophils # (Auto) 0.07 06/30/17 16:45 Test 06/30/17 16:45 White Blood Count 6.30 K/uL (4.8-10.8) Red Blood Count 4.18 M/uL (4.2-5.4) Hemoglobin 13.1 g/dL (12.0-16.0) Hematocrit 38.2 % (37-47) Mean Corpuscular Volume 91.4 fL (80-100) Mean Corpuscular Hemoglobin 31.3 pg (25-34) Mean Corpuscular Hemoglobin Concent 34.3 g/dl (32-36) Platelet Count 257 K/uL (130-400) Mean Platelet Volume 10.0 fL (7.4-10.4) Neutrophils (%) (Auto) 43.1 % Lymphocytes (%) (Auto) 45.4 % Monocytes (%) (Auto) 7.5 % Eosinophils (%) (Auto) 2.9 % Basophils (%) (Auto) 1.1 % Neutrophils # (Auto) 2.72 K/uL (1.4-6.5) Lymphocytes # (Auto) 2.86 K/uL (1.2-3.4) Monocytes # (Auto) 0.47 K/uL (0.11-0.59) Eosinophils # (Auto) 0.18 K/uL (0-0.5) Basophils # (Auto) 0.07 K/uL (0-0.2) RDW Standard Deviation 41.1 fL (36.4-46.3) RDW Coefficient of Variation 12.3 % (11.5-14.5) Immature Granulocyte % (Auto) 0.0 % Immature Granulocyte # (Auto) 0.00 K/uL (0.00-0.02) Anion Gap 6.0 mmol/L (3-11) Est Creatinine Clear Calc Drug Dose 61.4 ml/min Estimated GFR () 63.8 Estimated GFR (Non- 55.1 BUN/Creatinine Ratio 18.8 (10-20) Lactic Acid Level 1.4 mmol/L (0.4-2.0) Calcium Level 9.1 mg/dl (8.5-10.1) Total Bilirubin 0.3 mg/dl (0.2-1) Direct Bilirubin < 0.1 mg/dl (0-0.2) Aspartate Amino Transf (AST/SGOT) 17 U/L (15-37) Alanine Aminotransferase (ALT/SGPT) 23 U/L (12-78) Alkaline Phosphatase 63 U/L (45-117) Total Protein 7.4 gm/dl (6.4-8.2) Albumin 3.9 gm/dl (3.4-5.0) Lipase 143 U/L (73-393) Laboratory results reviewed by me Medications Administered Medications (Trade) Dose Ordered Sig/Azucena Route Start Time Stop Time Status Last Admin Dose Admin Ondansetron HCl (Zofran Inj) 4 mg NOW STAT IV 06/30/17 16:21 06/30/17 16:30 DC 06/30/17 17:01 4 MG Fentanyl Citrate (Fentanyl Inj) 50 mcg NOW STAT IV 06/30/17 16:21 06/30/17 16:30 DC 06/30/17 17:01 50 MCG Sodium Chloride 2,000 ml @ 999 mls/hr Q2H1M STAT IV 06/30/17 16:21 06/30/17 18:21 DC 06/30/17 17:01 999 MLS/HR ED Course 1619: The patient was evaluated in room B2. A complete history and physical exam was performed. 1730: I reevaluated the patient and she reports feeling better. Discussed results and discharge instructions: She verbalized understanding and agreement. The patient is ready for discharge. Medical Decision I reviewed the patient's past medical history, medications, and the nursing notes as described above. Differential diagnosis: Etiologies such as appendicitis, diverticulitis, PUD, biliary pathology, UTI, pancreatitis, obstruction, mesenteric ischemia, aortic pathology, infections, inflammatory bowel disease, renal colic, as well as others were entertained. The patient is a 76-year-old woman with a past medical history of recurrent pancreatitis status post sphincterotomy followed by Dr. Terry and Dr. Figueroa who presents emergency department with upper abdominal pain that began yesterday in setting of eating which occurs in the setting of similar symptoms last week for which she saw her PCP who believe that it is possible her sphincterotomy is failed per hpi. Of note, the patient does report history of chronic constipation and reports she has had bowel movements that are "small amita". On arrival, the patient is relatively well-appearing in no acute distress, afebrile stable vital signs. Labs unremarkable including WBC, lactate , lipase within normal limits. KUB demonstrates severe constipation which likely explains the patient's symptoms. Did offer the patient the option for an enema here in the ED however she prefers to go home and perform her own enema with oral stool softeners. Follow-up with her PCP. Findings and plan for follow-up reviewed with patient. Patient agreeable and d/c'd per discharge instructions. Medication Reconcilliation Current Medication List: was personally reviewed by me Blood Pressure Screening Patient's blood pressure: Normal blood pressure Impression Primary Impression: Constipation Scribe Attestation The scribe's documentation has been prepared under my direction and personally reviewed by me in its entirety. I confirm that the note above accurately reflects all work, treatment, procedures, and medical decision making performed by me. Departure Information Dispostion Home / Self-Care Referrals Yohannes Morelos M.D.([facility]) (PCP) Forms HOME CARE DOCUMENTATION FORM, IMPORTANT VISIT INFORMATION Patient Instructions ED Constipation, My [facility] Additional Instructions Please follow up with your primary care physician in the next 1-3 days for re- evaluation. Your symptoms are likely due to severe constipation. Otherwise, your exam, xray, and lab results did not show signs of an emergent condition at this time. Use enemas and stool softeners as needed. Drink plenty of fluids to ensure hydration. Return to the emergency department for worsening symptoms as described in the accompanying instructions.
[2017-06-30 17:00] LABS: BASO % 1.1 %; BASO ABS # 0.07 K/uL (0-0.2); EOS % 2.9 %; EOS ABS # 0.18 K/uL (0-0.5); HEMATOCRIT 38.2 % (37-47); HEMOGLOBIN 13.1 g/dL (12.0-16.0); LYMPH % 45.4 %; LYMPH ABS # 2.86 K/uL (1.2-3.4); MEAN CELL VOLUME 91.4 fL (80-100); MEAN CORPUSCULAR HEMOGLOBIN 31.3 pg (25-34); MEAN CORPUSCULAR HGB CONC 34.3 g/dl (32-36); MONO % 7.5 %; MONO ABS # 0.47 K/uL (0.11-0.59); NEUT % 43.1 %; NEUT ABS # 2.72 K/uL (1.4-6.5); PLATELET COUNT 257 K/uL (130-400); RED CELL DISTRIBUTION WIDTH CV 12.3 % (11.5-14.5); RED CELL DISTRIBUTION WIDTH SD 41.1 fL (36.4-46.3)
[2017-06-30 17:18] LABS: ALBUMIN 3.9 gm/dl (3.4-5.0); ALT/SGPT 23 U/L (12-78); BLOOD UREA NITROGEN 19 mg/dl (7-18); CALCIUM 9.1 mg/dl (8.5-10.1); CARBON DIOXIDE 27 mmol/L (21-32); GLUCOSE 97 mg/dl (70-99); LIPASE 143 U/L (73-393); POTASSIUM 4.1 mmol/L (3.5-5.1); SODIUM 140 mmol/L (136-145)
[2017-06-30 17:20] LABS: ALKALINE PHOSPHATASE 63 U/L (45-117); AST/SGOT 17 U/L (15-37); TOTAL PROTEIN 7.4 gm/dl (6.4-8.2)
--- NOTE | 2017-06-30 17:26 | DIAGNOSTIC IMAGING REPORT ---
KUB CLINICAL HISTORY: Constipation. FINDINGS: 2 AP supine abdominal radiographs are compared to study dated 03/03/2017 and correlated with abdominal CT dated 08/23/2016. Cholecystectomy clips are identified in the right upper quadrant. No bowel obstruction is seen. Advanced constipation is noted. A large phlebolith is observed in the left hemipelvis. No evidence of intraperitoneal free air is seen on this supine examination. The skeletal structures are osteopenic. Lumbosacral spondylosis is observed. IMPRESSION: Nonobstructed abdominal bowel gas pattern noting severe constipation. Electronically signed by: Giuseppe Thomas M.D. 06/30/2017 5:25 PM Dictated Date/Time: 06/30/2017 5:23 PM
[2017-06-30 18:22] VITALS: BP 105/61; PULSE 54; O2SAT 98
== END 2017-06-30 18:22 | disposition home or self-care (01) ==
LOC: C.EDB 16:10
DX: K59.00 Constipation, unspecified (principal); J45.909 Unspecified asthma, uncomplicated; K21.9 Gastro-esophageal reflux disease without esophagitis; Z85.43 Personal history of malignant neoplasm of ovary; Z85.3 Personal history of malignant neoplasm of breast; Z85.820 Personal history of malignant melanoma of skin; M81.0 Age-related osteoporosis without current pathological fracture; Z90.89 Acquired absence of other organs; Z90.49 Acquired absence of other specified parts of digestive tract; Z98.890 Other specified postprocedural states; Z83.3 Family history of diabetes mellitus; Z82.49 Family history of ischemic heart disease and other diseases of the circulatory system; Z88.8 Allergy status to other drugs, medicaments and biological substances; Z88.6 Allergy status to analgesic agent

== ENCOUNTER 2017-11-07 19:13 | Inpatient (IN) | payer OTHER, MEDICARE ==
[~2017-11-07] VITALS: Ht 190.5 cm; Wt 91.4 kg
[2017-11-07] MEDS ORDERED: ACETAMINOPHEN 500 MG TAB PO STA (19:23)
--- NOTE | 2017-11-07 19:37 | EMERGENCY ROOM VISIT NOTE ---
History Report prepared by Mary: Shyanne Latif Under the Supervision of: Dr. Ryan Fulton M.D. 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 Positive R knee pain, dizziness. Negative LOC, headache, chest pain, abdominal pain, neck pain, back pain. She states she was trying to close her storm doors in her basement when her shoe got caught under the door and she fell down about 5-6 steps. She reports she thinks she hit her head and she is slightly dizzy. 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 Review of Systems See HPI for pertinent positives and negatives. A total of ten systems were reviewed and were otherwise negative. Past Medical & Surgical Medical Problems: (1) Ambulatory dysfunction (2) AORTIC ATHEROSCLEROSIS (3) ASTHMA, UNSPECIFIED (4) Constipation (5) Dental pain (6) Gastroenteritis (7) Gastroesophageal reflux disease (8) Gastroparesis (9) IBS (10) Idiopathic peripheral neuropathy (11) MALIGN NEOPL OVARY (12) Malignant neoplasm of upper-outer quadrant of female breast (13) Melanoma (14) Osteoporosis (15) Pancreatitis (16) Peripheral neuropathy (17) Right patella fracture (18) Sciatica (19) UNSPEC CONSTIPATION Surgical Problems: (1) History of appendectomy (2) History of cholecystectomy (3) History of colonoscopy Family History Diabetes mellitus FHx: cancer FHx: heart disease FHx: lung disease Hypertension Kidney disease Social History Smoking Status: Never Smoker Alcohol Use: occasionally Drug Use: none Marital Status: Housing Status: lives with family Occupation Status: retired Current/Historical Medications Scheduled Ascorbic Acid (Ascorbic Acid), 500 MG PO DAILY B-Complex W/ Folic Acid (B Complex), 1 TAB PO DAILY Cholecalciferol (Vitamin D3), 2 CAP PO DAILY Metformin Hcl (Glucophage), 500 MG PO BID Methylcobalamin (B-12 Fast Dissolve), 2,500 MCG SL DAILY Multiple Vitamins W/ Minerals (Multi Vitamin and Mineral), 1 TAB PO DAILY Probiotic Product (Probiotic), 1 TAB PO DAILY Scheduled PRN Albuterol Hfa (Ventolin Hfa), 2 PUFFS INH Q6H PRN for SOB/Wheezing Artificial Tear Solution (Artificial Tears), 1 DROPS OP QID PRN for DRYNESS Gvyrits-Kdcvrwwlniwae-Uuvvebfe (Excedrin Extra Strength), 2 TAB PO DAILY PRN for Pain Lorazepam (Ativan), 0.5 MG PO TID PRN for Anxiety/Insomnia Ondansetron Hcl (Zofran), 4 MG PO Q6 PRN for Nausea Allergies Coded Allergies: Statins (Verified Allergy, Intermediate, MUSCLE WEAKNESS, 06/30/17) Tramadol (Verified Allergy, Intermediate, SOB, CHEST PAIN, 06/30/17) HAS TOLERATED MORPHINE Ibandronic Acid (Verified Allergy, Mild, GERD, 06/30/17) Carbamazepine (Verified Allergy, Unknown, pancreatitis, 06/30/17) Proton Pump Inhibitors (Verified Allergy, Unknown, UNKNOWN, 06/30/17) Morphine (Verified Adverse Reaction, Intermediate, GI SYMPTOMS, 06/30/17) PER PATIENT, DRIP OKAY - "NOT PUSHED" Epinephrine (Verified Adverse Reaction, Unknown, DIZZINESS, 06/30/17) Physical Exam Vital Signs Date Time Temp Pulse Resp B/P (MAP) Pulse Ox O2 Delivery O2 Flow Rate FiO2 11/07/17 21:41 58 133/70 97 Room Air 11/07/17 19:16 36.8 67 141/78 98 Room Air Physical Exam GENERAL: Awake, alert, well-appearing, NAD HENT: Normocephalic, atraumatic. EYES: Normal conjunctiva. Sclera non-icteric. PERRL. No anisocoria. NECK: Supple. No nuchal rigidity. FROM. RESPIRATORY: CTAB, no rhonchi, wheezing, crackles CARDIAC: RRR, no MRG ABDOMEN: Soft, NTND, BS+ MSK: No chest wall TTP. No midline C spine TTP. No tenderness with the exception of her RLE. Some mild anterior swelling to the R knee. Proximal viveros pain. NVI distally SP and DP nerves intact. NEURO: GCS 15, CN 2-12 intact, moves all 4s on command SKIN: No rash or jaundice noted. Medical Decision & Procedures ER Provider Diagnostic Interpretation: Radiology results as stated below per my review and radiologist interpretation: CT OF THE HEAD WITHOUT CONTRAST CLINICAL HISTORY: Fall. COMPARISON STUDY: Head CT March 28, 2011. CT DOSE: 614.27 mGy.cm TECHNIQUE: Helical axial images of the head were obtained without IV contrast. Automated exposure control was utilized for the study. A dose lowering technique was utilized adhering to the principles of ALARA. FINDINGS: No acute intracranial hemorrhage, midline shift or mass effect is present. Ventricular system is stable. Basilar cisterns are patent. There are no extra axial collections. Mild atrophy is noted. White matter hypodensity suggests small vessel disease. There is no calvarial fracture. IMPRESSION: 1. No acute intracranial findings. 2. No calvarial fracture. R TIBIA/FIBULA 2 VIEWS ROUTINE CLINICAL HISTORY: Fall. Right knee pain COMPARISON: Knee radiographs October 18, 2013. FINDINGS: Note is made of an acute comminuted displaced proximal right tibial fracture with marked depression of the lateral tibial plateau. Vertical component extends into the diaphysis of the right tibia. No distal right tibial or fibular fracture is identified. There is no ankle mortise widening. A large right knee joint effusion with lipohemarthrosis is noted. There is no right fibular fracture. IMPRESSION: 1. Acute displaced comminuted proximal right tibial fracture with marked depression of the lateral tibial plateau. 2. Large right knee joint effusion with lipohemarthrosis. Electronically signed by: Doyle Vance M.D. 11/07/2017 9:02 PM Dictated Date/Time: 11/07/2017 9:00 PM Electronically signed by: Doyle Vance M.D. 11/07/2017 9:51 PM Dictated Date/Time: 11/07/2017 9:49 PM R FEMUR 2 VIEWS ROUTINE CLINICAL HISTORY: Fall. Right knee pain. COMPARISON: Knee radiographs October 18, 2013. FINDINGS: No femoral fracture is identified although evaluation of the right hip is mildly compromised given difficulty positioning related to an acute displaced proximal right tibial fracture. There is a large right knee joint effusion with lipohemarthrosis. Note is made of an acute displaced proximal right tibial fracture with depression of the lateral tibial plateau of approximately 1.7 cm. Vertical component extends into the proximal diaphysis of the right tibia. IMPRESSION: 1. Acute displaced comminuted proximal right tibial fracture with marked depression of the lateral tibial plateau. 2. Large right knee joint effusion with lipohemarthrosis. 3. No acute right femoral fracture. Electronically signed by: Doyle Vance M.D. 11/07/2017 9:00 PM Dictated Date/Time: 11/07/2017 8:[address] OF THE RIGHT KNEE WITHOUT CONTRAST CLINICAL HISTORY: Right knee pain. COMPARISON STUDY: Right femur and tibia and fibula radiographs performed earlier today. Knee radiographs October 18, 2013. TECHNIQUE: Axial images of the right knee were obtained without IV contrast. Sagittal and coronal reconstructions were viewed. FINDINGS: There is a large right knee joint effusion with lipohemarthrosis. There is a comminuted displaced proximal right tibial fracture with marked depression of the posterior and mid aspect of the lateral tibial plateau of 1.7 cm. Multiple bone fragments are noted. Fracture extends to the medial tibial plateau which is depressed 2 mm. Focal nondisplaced component extends into the proximal diaphysis of the right tibia. There is no acute fracture of the distal right femur, proximal right fibula toward the patella. IMPRESSION: 1. Acute comminuted displaced proximal right tibial fracture with marked depression of the lateral tibial plateau and minimal depression of the medial tibial plateau. 2. Large right knee joint effusion with lipohemarthrosis. Electronically signed by: Doyle Vance M.D. 11/07/2017 9:22 PM Dictated Date/Time: 11/07/2017 9:20 PM Medications Administered Medications (Trade) Dose Ordered Sig/Azucena Route Start Time Stop Time Status Last Admin Dose Admin Acetaminophen (Tylenol Tab) 1,000 mg NOW STAT PO 11/07/17 19:23 11/07/17 19:24 DC 11/07/17 19:28 1,000 MG Sodium Chloride 1,000 ml @ 125 mls/hr Q8H STAT IV 11/07/17 20:42 11/07/17 23:40 DC 11/07/17 22:19 125 MLS/HR Oxycodone HCl (Roxicodone Immediate Rel Tab) 5 mg NOW STAT PO 11/07/17 21:03 11/07/17 21:05 DC 11/07/17 21:33 5 MG Ibuprofen (Advil Tab) 400 mg NOW STAT PO 11/07/17 21:03 11/07/17 21:06 DC 11/07/17 21:34 400 MG Al Hydrox/Mg Hydrox/Simethicone (Maalox Max Susp) 15 ml Q4H PRN PO 11/07/17 22:15 12/07/17 22:14 11/08/17 01:42 15 ML Hydromorphone HCl (Dilaudid Inj) 0.5 mg Q3HWA PRN IV 11/07/17 22:15 11/21/17 22:14 11/08/17 23:15 0.5 MG Oxycodone/ Acetaminophen (Percocet 5-325mg Tab) 1 tab Q4H PRN PO 11/07/17 22:15 11/08/17 08:40 DC 11/08/17 01:46 1 TAB Heparin Sodium (Porcine) (Heparin Sq 5000 Unit/0.5ml) 5,000 unit NOW STAT SQ 11/07/17 22:09 11/08/17 16:47 DC 11/08/17 01:39 5,000 UNIT ED Course 1914: The patient was evaluated in room C8. A complete history and physical exam was performed. 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 Positive R knee pain, dizziness. Negative LOC, headache, chest pain, abdominal pain, neck pain, back pain. Nursing notes reviewed. Ancillary studies and prior records reviewed. Differential diagnosis: Etiologies such as fracture, dislocation, neurovascular compromise, compartment syndrome, soft tissue injury, as well as others were entertained. Patient was seen and evaluated the bedside. Patient did present after a fall down 4-6 stairs. The patient did strike her head but no LOC and the patient denies taking any blood thinning medications. Per review the patient does take a baby aspirin. Patient has a nonfocal neurologic exam although does have some decreased range of motion of her right leg secondary to pain. There is an obvious effusion here. Patient initially did have plain films completed in the CT of the knee. Patient 's plain film showed concern for tibial plateau fracture. I did speak with the on-call orthopedist who stated that being nonweightbearing in a knee immobilizer and that she can be seen in the outpatient setting. I did discuss this with the patient and family member however they were concerned about patient's mobility and pain control. There was also concern for safety given the amount of stairs at the house. Because of this I did discuss the patient with the on-call hospitalist who agreed to further evaluate treat the patient. The patient was admitted for further evaluation and treatment. Medication Reconcilliation Current Medication List: was personally reviewed by me Impression Primary Impression: Tibial plateau fracture, right Additional Impression: Fall Scribe Attestation The scribe's documentation has been prepared under my direction and personally reviewed by me in its entirety. I confirm that the note above accurately reflects all work, treatment, procedures, and medical decision making performed by me. Departure Information Dispostion Being Evaluated By Hospitalist Prescriptions Lorazepam (ATIVAN) 0.5 Mg Tab 0.5 MG PO TID Y for Anxiety/Insomnia, #14 TAB Prov: Antonio Payne MD 11/07/17 Cholecalciferol (VITAMIN D3) 2,000 Unit Cap 2 CAP PO DAILY for 30 Days, #60 CAP 3 Refills Prov: Antonio Payne MD 11/07/17 B-Complex W/ Folic Acid (B COMPLEX) 1 Tab Tab 1 TAB PO DAILY, #30 Prov: Antonio Payne MD 11/07/17 Probiotic Product (PROBIOTIC) 1 Tab Tab 1 TAB PO DAILY, #30 Prov: Antonio Payne MD 11/07/17 Ascorbic Acid (ASCORBIC ACID) 500 Mg Tab 500 MG PO DAILY, #30 TAB Prov: Antonio Payne MD 11/07/17 Methylcobalamin (B-12 Fast Dissolve) 5,000 Mcg Sub 2500 MCG SL DAILY, #20 Prov: Antonio Payne MD 11/07/17 Metformin Hcl (GLUCOPHAGE) 500 Mg Tab 500 MG PO BID, #30 TAB Prov: Antonio Payne MD 11/07/17 Multiple Vitamins W/ Minerals (Multi Vitamin and Mineral) 1 Tab Tab 1 TAB PO DAILY, #30 Prov: Antonio Payne MD 11/07/17 Referrals Yohannes Morelos M.D.([facility]) (PCP) Patient Instructions My [facility] Problem Qualifiers Primary Impression: Tibial plateau fracture, right Encounter type: initial encounter Fracture type: closed Qualified Codes: S82.141A - Displaced bicondylar fracture of right tibia, initial encounter for closed fracture Additional Impression: Fall Encounter type: initial encounter Qualified Codes: W19.XXXA - Unspecified fall, initial encounter
[2017-11-07] MEDS ORDERED: ASPI-391 PO (19:47)
[2017-11-07] MEDS ORDERED: MELA1TAB4 PO (19:51)
[2017-11-07] MEDS ORDERED: SODIUM CHLORIDE 0.9% 1000ML 1,000 ML IV STA (20:42)
--- NOTE | 2017-11-07 21:01 | DIAGNOSTIC IMAGING REPORT ---
R FEMUR 2 VIEWS ROUTINE CLINICAL HISTORY: Fall. Right knee pain. COMPARISON: Knee radiographs October 18, 2013. FINDINGS: No femoral fracture is identified although evaluation of the right hip is mildly compromised given difficulty positioning related to an acute displaced proximal right tibial fracture. There is a large right knee joint effusion with lipohemarthrosis. Note is made of an acute displaced proximal right tibial fracture with depression of the lateral tibial plateau of approximately 1.7 cm. Vertical component extends into the proximal diaphysis of the right tibia. IMPRESSION: 1. Acute displaced comminuted proximal right tibial fracture with marked depression of the lateral tibial plateau. 2. Large right knee joint effusion with lipohemarthrosis. 3. No acute right femoral fracture. Electronically signed by: Doyle Vance M.D. 11/07/2017 9:00 PM Dictated Date/Time: 11/07/2017 8:57 PM
[2017-11-07] MEDS ORDERED: IBUPROFEN 200 MG TAB PO STA (21:03)
[2017-11-07] MEDS ORDERED: OXYCODONE HCL IR 5 MG TAB (IMMEDIATE RELEASE) PO STA (21:03)
--- NOTE | 2017-11-07 21:03 | DIAGNOSTIC IMAGING REPORT ---
R TIBIA/FIBULA 2 VIEWS ROUTINE CLINICAL HISTORY: Fall. Right knee pain COMPARISON: Knee radiographs October 18, 2013. FINDINGS: Note is made of an acute comminuted displaced proximal right tibial fracture with marked depression of the lateral tibial plateau. Vertical component extends into the diaphysis of the right tibia. No distal right tibial or fibular fracture is identified. There is no ankle mortise widening. A large right knee joint effusion with lipohemarthrosis is noted. There is no right fibular fracture. IMPRESSION: 1. Acute displaced comminuted proximal right tibial fracture with marked depression of the lateral tibial plateau. 2. Large right knee joint effusion with lipohemarthrosis. Electronically signed by: Doyle Vance M.D. 11/07/2017 9:02 PM Dictated Date/Time: 11/07/2017 9:00 PM
[2017-11-07] MEDS ORDERED: OXYCODONE IR HOME PACK PO ONE (21:15)
--- NOTE | 2017-11-07 21:24 | DIAGNOSTIC IMAGING REPORT ---
CT OF THE RIGHT KNEE WITHOUT CONTRAST CLINICAL HISTORY: Right knee pain. COMPARISON STUDY: Right femur and tibia and fibula radiographs performed earlier today. Knee radiographs October 18, 2013. TECHNIQUE: Axial images of the right knee were obtained without IV contrast. Sagittal and coronal reconstructions were viewed. FINDINGS: There is a large right knee joint effusion with lipohemarthrosis. There is a comminuted displaced proximal right tibial fracture with marked depression of the posterior and mid aspect of the lateral tibial plateau of 1.7 cm. Multiple bone fragments are noted. Fracture extends to the medial tibial plateau which is depressed 2 mm. Focal nondisplaced component extends into the proximal diaphysis of the right tibia. There is no acute fracture of the distal right femur, proximal right fibula toward the patella. IMPRESSION: 1. Acute comminuted displaced proximal right tibial fracture with marked depression of the lateral tibial plateau and minimal depression of the medial tibial plateau. 2. Large right knee joint effusion with lipohemarthrosis. Electronically signed by: Doyle Vance M.D. 11/07/2017 9:22 PM Dictated Date/Time: 11/07/2017 9:20 PM
--- NOTE | 2017-11-07 21:52 | DIAGNOSTIC IMAGING REPORT ---
CT OF THE HEAD WITHOUT CONTRAST CLINICAL HISTORY: Fall. COMPARISON STUDY: Head CT March 28, 2011. CT DOSE: 614.27 mGy.cm TECHNIQUE: Helical axial images of the head were obtained without IV contrast. Automated exposure control was utilized for the study. A dose lowering technique was utilized adhering to the principles of ALARA. FINDINGS: No acute intracranial hemorrhage, midline shift or mass effect is present. Ventricular system is stable. Basilar cisterns are patent. There are no extra axial collections. Mild atrophy is noted. White matter hypodensity suggests small vessel disease. There is no calvarial fracture. IMPRESSION: 1. No acute intracranial findings. 2. No calvarial fracture. Electronically signed by: Doyle Vance M.D. 11/07/2017 9:51 PM Dictated Date/Time: 11/07/2017 9:49 PM
[2017-11-07] MEDS ORDERED: HEPARIN SOD 5000 UNIT/0.5 ML CARP SQ STA (22:09)
[2017-11-07] MEDS ORDERED: ONDANSETRON 4 MG TAB PO PRN (22:15)
[2017-11-07] MEDS ORDERED: OXYCODONE/ACETAMINOPHEN 5-325 TAB PO PRN (22:15)
[2017-11-07] MEDS ORDERED: ALBUTEROL HFA 8 GM INHALER INH PRN (22:15)
[2017-11-07] MEDS ORDERED: ALUMINUM/MAGNESIUM/SIMETH (MAALOX MAX) 30 ML UDC PO PRN (22:15)
[2017-11-07] MEDS ORDERED: ONDANSETRON INJ 2 MG/ML 2 ML VIAL IV PRN (22:15)
[2017-11-07] MEDS ORDERED: ACETAMINOPHEN 325 MG TAB PO PRN (22:15)
[2017-11-07] MEDS ORDERED: ARTIFICIAL TEARS OP SOLN OP PRN (22:15)
[2017-11-07] MEDS ORDERED: PROB1TAB16 PO (22:22)
[2017-11-07] MEDS ORDERED: METH5000 SL (22:22)
[2017-11-07] MEDS ORDERED: MULT-1042 PO (22:22)
[2017-11-07] MEDS ORDERED: B-COTAB53 PO (22:22)
[2017-11-07] MEDS ORDERED: CHOL2000 PO (22:22)
[2017-11-07] MEDS ORDERED: BISA1TAB15 PO (22:22)
[2017-11-07] MEDS ORDERED: ASCO500T16 PO (22:22)
[2017-11-07] MEDS ORDERED: GLC/500 PO (22:22)
[2017-11-07] MEDS ORDERED: LORA-741 PO (22:22)
[2017-11-07] MEDS ORDERED: DEXTROSE 50% 50 ML SYR IV PRN (22:30)
[2017-11-07] MEDS ORDERED: GLUCOSE 40% GEL 15 GM TUBE PO PRN (22:30)
[2017-11-07] MEDS ORDERED: GLUCAGON FOR INJ 1 MG VIAL IM PRN (22:30)
[2017-11-07] MEDS ORDERED: GLUCOSE 10 TABS/TUBE PO PRN (22:30)
[2017-11-07] MEDS ORDERED: CARBOHYDRATES FOR HYPOGLYCEMIA PO PRN (22:30)
[2017-11-07 22:52] LABS: BASO % 0.4 %; BASO ABS # 0.05 K/uL (0-0.2); EOS % 3.2 %; EOS ABS # 0.45 K/uL (0-0.5); HEMATOCRIT 37.8 % (37-47); HEMOGLOBIN 12.8 g/dL (12.0-16.0); IG# 0.04 K/uL (0.00-0.02); LYMPH % 23.8 %; LYMPH ABS # 3.31 K/uL (1.2-3.4); MEAN CELL VOLUME 92.2 fL (80-100); MEAN CORPUSCULAR HEMOGLOBIN 31.2 pg (25-34); MEAN CORPUSCULAR HGB CONC 33.9 g/dl (32-36); MEAN PLATELET VOLUME 10.6 fL (7.4-10.4); MONO % 6.2 %; MONO ABS # 0.86 K/uL (0.11-0.59); NEUT % 66.1 %; NEUT ABS # 9.18 K/uL (1.4-6.5); PLATELET COUNT 245 K/uL (130-400); RED CELL DISTRIBUTION WIDTH CV 12.2 % (11.5-14.5); RED CELL DISTRIBUTION WIDTH SD 41.8 fL (36.4-46.3); WHITE BLOOD COUNT 13.89 K/uL (4.8-10.8)
[2017-11-07 23:02] LABS: PTT PATIENT 24.7 SECONDS (21.0-31.0)
[2017-11-07 23:08] LABS: CREATININE 0.87 mg/dl (0.60-1.20)
[2017-11-07 23:09] LABS: CALCIUM 9.2 mg/dl (8.5-10.1); POTASSIUM 3.9 mmol/L (3.5-5.1)
[2017-11-07 23:30] VITALS: BP 157/79; PULSE 65; PULSE 69; TEMP 36.7; O2SAT 97; Ht 190.5 cm; Wt 91.4 kg
[2017-11-07] MEDS ORDERED: SODIUM CHLORIDE 0.9% 1000ML 1,000 ML IV SCH (23:30)
--- NOTE | 2017-11-07 23:31 | HISTORY & PHYSICAL EXAMINATION ---
DATE OF ADMISSION: 11/07/2017 CHIEF COMPLAINT: Status post fall and right patellar fracture. HISTORY OF PRESENT ILLNESS: This is a 77-year-old female with past medical history significant breast cancer, osteoporosis, history of ovarian cancer, peripheral neuropathy, hyperlipidemia, chronic constipation, hiatal hernia with GERD, idiopathic gastric motility disorder, nontoxic multinodular goiter, prediabetes, and recurrent pancreatitis status post cholecystectomy, presents with fall. The patient was in the basement and trying to shut the door when shoe stuck in the door and she fell 5-6 steps down with falling down on her right knee and hit her head. No loss of consciousness. Had lot of pain. Couldn't get up. She was brought in here and x-ray shows right patellar fracture and she feels a lot of pain on movement of the right lower extremity. Otherwise, She was active and denies any other complaints. No headaches, no dizziness, no earache, no sore throat. Occasional cough. No shortness of breath. No difficulty swallowing. No chest pain, no nausea, no vomiting, no abdominal pain. Appetite is okay. She has issues with bowels with idiopathic gastric motility disorder but they are doing ok now. No blood in the stools. Normal bladder movements. No feeling of hot or cold. No significant weight loss or weight gain. Currently, seems to be in pain but hemodynamically stable. ALLERGIES: TO ALENDRONATE, CARBAMAZEPINE, CELEBREX, EPINEPHRINE, PROPYLENE GLYCOL, SERTRALINE, SIMVASTATIN, TRAMADOL. PAST MEDICAL HISTORY: As mentioned above. PAST SURGICAL HISTORY: Breast lesion excision, colonoscopy, cystoscopy, dental surgery, EGD with biopsy, EGD with dilatation, EGD with ERCP and biopsy and pancreatic stent placement, which was removed, right thumb tendon repair, right lumpectomy for cancer. Partial parathyroidectomy for parathyroid tumor, oophorectomy, appendectomy reduction of breast, cholecystectomy, tonsillectomy, adenoidectomy, total hysterectomy.. MEDICATIONS: The patient is on multivitamins 1 tablet daily, metformin 500 mg p.o. b.i.d., Zofran 4 mg p.o. q. 8 hours p.r.n., methylcobalamin 2500mg sublingual daily, vitamin c 500 mg daily, Bisacodyl 5 mg p.o. daily p.r.n., artificial tears 4 times a day as needed, Excedrin Extra Strength 1 tablet every 6hrs prn, Proair 2 puffs 4 times daily,Probiotic 1 tablet daily, B complex 1 tablet daily , Chlorpheniramine 4mg prn lorazepam 0.5 mg p.o. t.i.d. p.r.n. FAMILY HISTORY: Significant for father had lung cancer. Mother has diabetes, glaucoma, heart disorder. Sister has heart disorder, breast cancer. Sister of bone cancer. Brother has depression ,low testosterone. SOCIAL HISTORY: . No tobacco use. No drug use. No alcohol use. REVIEW OF SYMPTOMS: As per HPI. Rest of review of negative. PHYSICAL EXAMINATION: GENERAL: The patient is of moderate build, not in distress. VITAL SIGNS: Temperature 36.8, pulse 67, respiratory 18 , oxygen 98% room air. HEENT: No pallor, no icterus. Pupils equal, round, and reactive. NECK: No JVD. No neck masses, no carotid bruits. CARDIOVASCULAR: S1, S2, regular rate and rhythm, no murmur, no gallop. RESPIRATORY: Normal AP diameter. No accessory muscle use. No wheezing, no crackles. ABDOMEN: Soft, bowel sounds present. Nontender. No distention. CENTRAL NERVOUS SYSTEM: nonfocal. EXTREMITIES: Right knee is swollen and tender . right lower extremity is painful on movement. No erythema seen. LABORATORY DATA: Pending. Lower extremity Ct acute comminuted, displaced proximal right tibial fracture with marked depression of medial tibial plateau.Large right knee joint effusion. CT of the head, no acute intracranial findings ASSESSMENT AND PLAN: This is a 77-year-old female who presents with mechanical fall and right Tibial fracture. 1. Mechanical fall, right proximal tibial fracture. Pain control, IV fluids. ER spoke with ortho. We will consult ortho for further recommendations. We will keep NPO for possible surgery. PT and OT when the patient is more stable. Social service will help with discharge planning. 2. History of breast cancer, ovarian cancer status post lumpectomy and chemo 3. History of prediabetes, on metformin wich will kept on hold. ISS. f/u hba1c levels. 4 chronic constipation, stool softener 5 history of pancreatitis s/p cholecystectomy. s/p pancreatic stent which is removed now. Currently stable. 6.deep venous thrombosis prophylaxis . One dose of hep sub q now. further anticoagulation based on plans by Ortho in am. 4. Disposition: Admit to medical floor. social service to will help with discharge planning. Level 1 full code. MTDD
[2017-11-08] MEDS: HYDROmorphone INJ 0.5 MG/0.5 ML SYR IV PRN ×6 (00:20→23:15)
[2017-11-08] MEDS ORDERED: ZOLPIDEM TARTRATE 5 MG TAB PO ONE (02:45)
[2017-11-08 05:44] LABS: BASO % 0.6 %; BASO ABS # 0.07 K/uL (0-0.2); EOS % 4.3 %; EOS ABS # 0.54 K/uL (0-0.5); HEMATOCRIT 34.5 % (37-47); HEMOGLOBIN 11.6 g/dL (12.0-16.0); IG# 0.03 K/uL (0.00-0.02); LYMPH % 16.5 %; LYMPH ABS # 2.06 K/uL (1.2-3.4); MEAN CELL VOLUME 93.5 fL (80-100); MEAN CORPUSCULAR HEMOGLOBIN 31.4 pg (25-34); MEAN CORPUSCULAR HGB CONC 33.6 g/dl (32-36); MEAN PLATELET VOLUME 10.5 fL (7.4-10.4); MONO % 10.3 %; MONO ABS # 1.28 K/uL (0.11-0.59); NEUT % 68.1 %; NEUT ABS # 8.47 K/uL (1.4-6.5); PLATELET COUNT 209 K/uL (130-400); RED CELL DISTRIBUTION WIDTH CV 12.4 % (11.5-14.5); RED CELL DISTRIBUTION WIDTH SD 42.5 fL (36.4-46.3); WHITE BLOOD COUNT 12.45 K/uL (4.8-10.8)
[2017-11-08] MEDS: INSULIN ASPART 100 UNITS/ML 3 ML PEN SC SCH ×4 (06:00→21:00)
[2017-11-08] MEDS ORDERED: NURSING VERBAL MED ORDER ONE (06:15)
[2017-11-08 06:21] LABS: CALCIUM 8.3 mg/dl (8.5-10.1); CREATININE 0.81 mg/dl (0.60-1.20); POTASSIUM 3.7 mmol/L (3.5-5.1)
[2017-11-08] MEDS ORDERED: INSULIN ASPART 100 UNITS/ML 3 ML PEN SC SCH (07:00)
[2017-11-08 07:15] VITALS: BP 102/59; PULSE 61; TEMP 36.8; O2SAT 96
[2017-11-08 07:21] LABS: HEMOGLOBIN A1C 6.4 % (4.5-5.6)
--- NOTE | 2017-11-08 07:27 | DIAGNOSTIC IMAGING REPORT ---
CHEST ONE VIEW PORTABLE CLINICAL HISTORY: infiltrate/congestion dyspnea COMPARISON STUDY: 02/09/2017 FINDINGS: Lungs are clear. Diaphragms smooth. Stable postoperative changes left axilla. IMPRESSION: No acute process. Stable postoperative change. The above report was generated using voice recognition software. It may contain grammatical, syntax or spelling errors. Electronically signed by: Jc Barton M.D. 11/08/2017 7:25 AM Dictated Date/Time: 11/08/2017 7:25 AM
[2017-11-08] MEDS ORDERED: HYDROmorphone INJ 0.5 MG/0.5 ML SYR IV STA (08:25)
--- NOTE | 2017-11-08 08:37 | Progress Note ---
Medicine Progress Note Date & Time of Visit: Nov 08, 2017 at 08:27. Subjective seen resting in bed, alert states knee/right lower leg pain is down from 20 to 11 not visibly in distress no chest pain, dyspnea, headache, dizziness, nausea denies any other pain in her body no other symptoms Objective Physical Exam: General- oriented x 3, not in distress, speaks in sentences with no effort Eyes- anicteric Neck- no JVD Lungs- clear breath sounds bilaterally no rales/wheezes Heart- regular rhythm; no murmur, normal rate Abdomen- normal bowel sounds, soft, nontender Extremities- soft brace in place - right leg no pretibial edema, no calf tenderness Neuro- alert, oriented x 3; no gross focal deficits Skin- warm & dry Laboratory Results: Last 24 Hours Test 11/07/17 22:33 11/08/17 05:20 11/08/17 06:03 White Blood Count 13.89 K/uL 12.45 K/uL Red Blood Count 4.10 M/uL 3.69 M/uL Hemoglobin 12.8 g/dL 11.6 g/dL Hematocrit 37.8 % 34.5 % Mean Corpuscular Volume 92.2 fL 93.5 fL Mean Corpuscular Hemoglobin 31.2 pg 31.4 pg Mean Corpuscular Hemoglobin Concent 33.9 g/dl 33.6 g/dl Platelet Count 245 K/uL 209 K/uL Mean Platelet Volume 10.6 fL 10.5 fL Neutrophils (%) (Auto) 66.1 % 68.1 % Lymphocytes (%) (Auto) 23.8 % 16.5 % Monocytes (%) (Auto) 6.2 % 10.3 % Eosinophils (%) (Auto) 3.2 % 4.3 % Basophils (%) (Auto) 0.4 % 0.6 % Neutrophils # (Auto) 9.18 K/uL 8.47 K/uL Lymphocytes # (Auto) 3.31 K/uL 2.06 K/uL Monocytes # (Auto) 0.86 K/uL 1.28 K/uL Eosinophils # (Auto) 0.45 K/uL 0.54 K/uL Basophils # (Auto) 0.05 K/uL 0.07 K/uL RDW Standard Deviation 41.8 fL 42.5 fL RDW Coefficient of Variation 12.2 % 12.4 % Immature Granulocyte % (Auto) 0.3 % 0.2 % Immature Granulocyte # (Auto) 0.04 K/uL 0.03 K/uL Prothrombin Time 10.2 SECONDS Prothromb Time International Ratio 1.0 Activated Partial Thromboplast Time 24.7 SECONDS Partial Thromboplastin Ratio 1.0 Sodium Level 143 mmol/L 140 mmol/L Potassium Level 3.9 mmol/L 3.7 mmol/L Chloride Level 108 mmol/L 107 mmol/L Carbon Dioxide Level 25 mmol/L 24 mmol/L Anion Gap 10.0 mmol/L 9.0 mmol/L Blood Urea Nitrogen 20 mg/dl 20 mg/dl Creatinine 0.87 mg/dl 0.81 mg/dl Est Creatinine Clear Calc Drug Dose 69.5 ml/min 74.6 ml/min Estimated GFR () 75.0 81.8 Estimated GFR (Non- 64.7 70.5 BUN/Creatinine Ratio 23.3 24.1 Random Glucose 103 mg/dl 129 mg/dl Calcium Level 9.2 mg/dl 8.3 mg/dl Estimated Average Glucose 137 mg/dl Hemoglobin A1c 6.4 % Magnesium Level 2.0 mg/dl Bedside Glucose 139 mg/dl Assessment & Plan ASSESSMENT AND PLAN: This is a 77-year-old female who presents with mechanical fall and right Tibial fracture. 1. Mechanical fall, right proximal tibial fracture. -- hemodynamically stable -- pain control with PRN Dilaudid and Ofirmev q8h -- no medical contraindications for orthopedic surgery patient low-moderate risk for post op complications given age -- Npo, D5NSS 2. History of breast cancer, ovarian cancer status post lumpectomy and chemo 3. History of prediabetes, on metformin wich will kept on hold. ISS. f/u hba1c levels. - ISS 4 chronic constipation, stool softener 5 history of pancreatitis s/p cholecystectomy. s/p pancreatic stent which is removed now. Currently stable. 6.deep venous thrombosis prophylaxis . One dose of hep sub q now. further anticoagulation based on plans by Ortho in am. 4. Disposition: lives at home with will need Rehab Current Inpatient Medications: Current Inpatient Medications Medications (Trade) Dose Ordered Sig/Azucena Route Start Time Stop Time Status Last Admin Dose Admin Acetaminophen (Tylenol Tab) 650 mg Q4H PRN PO 11/07/17 22:15 12/07/17 22:14 Al Hydrox/Mg Hydrox/Simethicone (Maalox Max Susp) 15 ml Q4H PRN PO 11/07/17 22:15 12/07/17 22:14 11/08/17 01:42 15 ML Ondansetron HCl (Zofran Inj) 4 mg Q6H PRN IV 11/07/17 22:15 12/07/17 22:14 Albuterol (Ventolin Hfa Inhaler) 2 puffs Q6H PRN INH 11/07/17 22:15 12/07/17 22:14 Ondansetron HCl (Zofran Tab) 4 mg Q6 PRN PO 11/07/17 22:15 12/07/17 22:14 Artificial Tears (Artificial Tears) 1 drops QID PRN OP 11/07/17 22:15 12/07/17 22:14 Miscellaneous Information (Order Awaiting Action) 1 ea QS N/A 11/08/17 00:00 12/08/17 00:00 Hydromorphone HCl (Dilaudid Inj) 0.5 mg Q3HWA PRN IV 11/07/17 22:15 11/21/17 22:14 11/08/17 03:39 0.5 MG Oxycodone/ Acetaminophen (Percocet 5-325mg Tab) 1 tab Q4H PRN PO 11/07/17 22:15 11/21/17 22:14 11/08/17 01:46 1 TAB Sodium Chloride 1,000 ml @ 80 mls/hr [id number] IV 11/07/17 23:30 12/07/17 23:29 11/07/17 23:46 80 MLS/HR Glucose (Glucose 40% Gel) 15-30 GRAMS 15 GRAMS... UD PRN PO 11/07/17 22:30 12/07/17 22:29 Glucose (Glucose Chew Tab) 4-8 Tablets 4 Tabl... UD PRN PO 11/07/17 22:30 12/07/17 22:29 Dextrose (Dextrose 50% 50ML Syringe) 25-50ML 25ML FOR ... UD PRN IV 11/07/17 22:30 12/07/17 22:29 Glucagon (Glucagon Inj) 1 mg UD PRN IM 11/07/17 22:30 12/07/17 22:29 Carbohydrates (Carbohydrates For Hypoglycemia) 15-30 GRAMS 15 grams if BSG 54-69... UD PRN PO 11/07/17 22:30 12/07/17 22:29 Zolpidem Tartrate (Ambien Tab) 5 mg HS PRN PO 11/08/17 02:45 12/08/17 02:44 Insulin Aspart (novoLOG ASPART) SLIDING SCALE G... Q6 SC 11/08/17 06:00 12/08/17 05:59
[2017-11-08] MEDS: D5NSS + 20MEQ KCL 1,000 ML IV SCH ×2 (08:56→21:27)
[2017-11-08] MEDS: ACETAMINOPHEN IV 1,000 MG in EMPTY BAG 0 ML IV SCH ×2 (08:56→16:37)
[2017-11-08] MEDS: OXYCODONE HCL IR 5 MG TAB (IMMEDIATE RELEASE) PO PRN ×2 (14:15→20:07)
[2017-11-08 15:15] VITALS: BP 144/79; PULSE 75; TEMP 37.5; O2SAT 96
[2017-11-08 15:45] VITALS: O2SAT 96
[2017-11-08] MEDS ORDERED: NURSING DECISION MEDICATION ORDER SCH (16:15)
--- NOTE | 2017-11-08 16:45 | Orthopedic Consultation ---
Orthopedic Consultation Date of Consultation: Nov 08, 2017. Attending Physician: Elkin Lockett MD Reason for Consultation: Right tibial plateau fracture History of Present Illness The patient is a 77 year old female who sustained a traumatic injury on 11/07/17 after a fall from 5-6 steps. She reports hitting right knee and her head but denies LOC. Subsequently seen at [facility] ED and dx with a right tibial plateau fracture. Denies associated injuries. Has history of chronic peripheral neuropathy, sensation unchanged from her baseline. Admits to 01/05 pain to right knee, controlled with medication. Denies F/C/N/V/D/CP or SOB. Past Medical/Surgical History Medical Problems: (1) Constipation Status: Acute (2) Intractable abdominal pain Status: Acute (3) Leukocytosis Status: Acute (4) Non-cardiac chest pain Status: Acute (5) Weakness Status: Acute Family History Diabetes mellitus FHx: cancer FHx: heart disease FHx: lung disease Hypertension Kidney disease Social History Smoking Status: Never Smoker Drug Use: none Marital Status: Housing Status: lives with family Occupation Status: retired Allergies Coded Allergies: Proton Pump Inhibitors (Verified Allergy, Unknown, UNKNOWN, 06/30/17) Morphine (Verified Adverse Reaction, Intermediate, GI SYMPTOMS, 06/30/17) PER PATIENT, DRIP OKAY - "NOT PUSHED" Statins (Verified Adverse Reaction, Intermediate, MUSCLE WEAKNESS, 11/09/17 ) Tramadol (Verified Adverse Reaction, Intermediate, SOB, CHEST PAIN, ) HAS TOLERATED MORPHINE Ibandronic Acid (Verified Adverse Reaction, Mild, GERD, 11/09/17) Carbamazepine (Verified Adverse Reaction, Unknown, pancreatitis, 11/09/17) Epinephrine (Verified Adverse Reaction, Unknown, DIZZINESS, 06/30/17) Home Medications Scheduled Ascorbic Acid (Ascorbic Acid), 500 MG PO DAILY B-Complex W/ Folic Acid (B Complex), 1 TAB PO DAILY Cholecalciferol (Vitamin D3), 2 CAP PO DAILY Metformin Hcl (Glucophage), 500 MG PO BID Methylcobalamin (B-12 Fast Dissolve), 2,500 MCG SL DAILY Multiple Vitamins W/ Minerals (Multi Vitamin and Mineral), 1 TAB PO DAILY Probiotic Product (Probiotic), 1 TAB PO DAILY Scheduled PRN Albuterol Hfa (Ventolin Hfa), 2 PUFFS INH Q6H PRN for SOB/Wheezing Artificial Tear Solution (Artificial Tears), 1 DROPS OP QID PRN for DRYNESS Ylrtrov-Mtdcrmyliifmj-Lzwkgyah (Excedrin Extra Strength), 2 TAB PO DAILY PRN for Pain Lorazepam (Ativan), 0.5 MG PO TID PRN for Anxiety/Insomnia Ondansetron Hcl (Zofran), 4 MG PO Q6 PRN for Nausea Current Inpatient Medications Current Inpatient Medications Medications (Trade) Dose Ordered Sig/Azucena Route Start Time Stop Time Status Last Admin Dose Admin Acetaminophen (Tylenol Tab) 650 mg Q4H PRN PO 11/07/17 22:15 12/07/17 22:14 Future Hold Al Hydrox/Mg Hydrox/Simethicone (Maalox Max Susp) 15 ml Q4H PRN PO 11/07/17 22:15 12/07/17 22:14 11/08/17 01:42 15 ML Ondansetron HCl (Zofran Inj) 4 mg Q6H PRN IV 11/07/17 22:15 12/07/17 22:14 Albuterol (Ventolin Hfa Inhaler) 2 puffs Q6H PRN INH 11/07/17 22:15 12/07/17 22:14 Ondansetron HCl (Zofran Tab) 4 mg Q6 PRN PO 11/07/17 22:15 12/07/17 22:14 Artificial Tears (Artificial Tears) 1 drops QID PRN OP 11/07/17 22:15 12/07/17 22:14 Miscellaneous Information (Order Awaiting Action) 1 ea QS N/A 11/08/17 00:00 12/08/17 00:00 Hydromorphone HCl (Dilaudid Inj) 0.5 mg Q3HWA PRN IV 11/07/17 22:15 11/21/17 22:14 11/08/17 15:52 0.5 MG Glucose (Glucose 40% Gel) 15-30 GRAMS 15 GRAMS... UD PRN PO 11/07/17 22:30 12/07/17 22:29 Glucose (Glucose Chew Tab) 4-8 Tablets 4 Tabl... UD PRN PO 11/07/17 22:30 12/07/17 22:29 Dextrose (Dextrose 50% 50ML Syringe) 25-50ML 25ML FOR ... UD PRN IV 11/07/17 22:30 12/07/17 22:29 Glucagon (Glucagon Inj) 1 mg UD PRN IM 11/07/17 22:30 12/07/17 22:29 Carbohydrates (Carbohydrates For Hypoglycemia) 15-30 GRAMS 15 grams if BSG 54-69... UD PRN PO 11/07/17 22:30 12/07/17 22:29 Zolpidem Tartrate (Ambien Tab) 5 mg HS PRN PO 11/08/17 02:45 12/08/17 02:44 Acetaminophen 1000 mg/Empty Bag 100 ml @ 400 mls/hr Q8H IV 11/08/17 09:00 12/08/17 08:59 11/08/17 08:56 400 MLS/HR Potassium Chloride/Dextrose/ Sod Cl 1,000 ml @ 75 mls/hr [id number] IV 11/08/17 09:00 12/08/17 08:59 11/08/17 08:56 75 MLS/HR Oxycodone HCl (Roxicodone Immediate Rel Tab) 1 TABLET FOR PAIN RATING... Q4H PRN PO 11/08/17 13:45 11/22/17 13:44 11/08/17 14:15 10 MG Insulin Aspart (novoLOG ASPART) SLIDING SCALE G... ACHS SC 11/08/17 17:15 12/08/17 17:14 Review of Systems A complete 10-point Review of Systems was discussed with the patient, with pertinent positives and negatives listed in the History of Present Illness. All remaining Review of Systems questions can be considered negative unless otherwise specified. Physical Exam Date Time Temp Pulse Resp B/P (MAP) Pulse Ox O2 Delivery O2 Flow Rate FiO2 11/08/17 15:15 37.5 75 22 144/79 (100) 96 Room Air 11/08/17 08:46 Room Air 11/08/17 07:15 36.8 61 16 102/59 (73) 96 Room Air 11/07/17 23:30 36.7 69 18 157/79 (105) 97 Room Air 11/07/17 23:30 Room Air 11/07/17 23:30 36.7 65 18 157/79 Room Air 11/07/17 23:22 36.8 58 133/70 97 11/07/17 21:41 58 133/70 97 Room Air 11/07/17 19:16 36.8 67 141/78 98 Room Air NAD, AOx3 RLE NVSI +EHL/FHL/TA/GS SILT grossly, CV< 2 seconds, +2 DP pulse, compartments soft NT, large knee effusion, skin intact. TTP right knee diffusely. ROM and strength testing deferred secondary to fracture. Laboratory Results Last 24 Hours Test 11/07/17 22:33 11/08/17 05:20 11/08/17 06:03 11/08/17 12:11 White Blood Count 13.89 K/uL 12.45 K/uL Red Blood Count 4.10 M/uL 3.69 M/uL Hemoglobin 12.8 g/dL 11.6 g/dL Hematocrit 37.8 % 34.5 % Mean Corpuscular Volume 92.2 fL 93.5 fL Mean Corpuscular Hemoglobin 31.2 pg 31.4 pg Mean Corpuscular Hemoglobin Concent 33.9 g/dl 33.6 g/dl Platelet Count 245 K/uL 209 K/uL Mean Platelet Volume 10.6 fL 10.5 fL Neutrophils (%) (Auto) 66.1 % 68.1 % Lymphocytes (%) (Auto) 23.8 % 16.5 % Monocytes (%) (Auto) 6.2 % 10.3 % Eosinophils (%) (Auto) 3.2 % 4.3 % Basophils (%) (Auto) 0.4 % 0.6 % Neutrophils # (Auto) 9.18 K/uL 8.47 K/uL Lymphocytes # (Auto) 3.31 K/uL 2.06 K/uL Monocytes # (Auto) 0.86 K/uL 1.28 K/uL Eosinophils # (Auto) 0.45 K/uL 0.54 K/uL Basophils # (Auto) 0.05 K/uL 0.07 K/uL RDW Standard Deviation 41.8 fL 42.5 fL RDW Coefficient of Variation 12.2 % 12.4 % Immature Granulocyte % (Auto) 0.3 % 0.2 % Immature Granulocyte # (Auto) 0.04 K/uL 0.03 K/uL Prothrombin Time 10.2 SECONDS Prothromb Time International Ratio 1.0 Activated Partial Thromboplast Time 24.7 SECONDS Partial Thromboplastin Ratio 1.0 Sodium Level 143 mmol/L 140 mmol/L Potassium Level 3.9 mmol/L 3.7 mmol/L Chloride Level 108 mmol/L 107 mmol/L Carbon Dioxide Level 25 mmol/L 24 mmol/L Anion Gap 10.0 mmol/L 9.0 mmol/L Blood Urea Nitrogen 20 mg/dl 20 mg/dl Creatinine 0.87 mg/dl 0.81 mg/dl Est Creatinine Clear Calc Drug Dose 69.5 ml/min 74.6 ml/min Estimated GFR () 75.0 81.8 Estimated GFR (Non- 64.7 70.5 BUN/Creatinine Ratio 23.3 24.1 Random Glucose 103 mg/dl 129 mg/dl Calcium Level 9.2 mg/dl 8.3 mg/dl Estimated Average Glucose 137 mg/dl Hemoglobin A1c 6.4 % Magnesium Level 2.0 mg/dl Bedside Glucose 139 mg/dl 138 mg/dl Assessment & Plan Right comminuted, displaced tibial plateau fracture The patient will require surgical repair for her fracture, ORIF R Tibial Plateau. NWB RLE, Pain control, Maintain knee immobilizer, Ice/Elevation, hold anticoagulation. NPO after midnight. CT OF THE RIGHT KNEE WITHOUT CONTRAST CLINICAL HISTORY: Right knee pain. COMPARISON STUDY: Right femur and tibia and fibula radiographs performed earlier today. Knee radiographs October 18, 2013. TECHNIQUE: Axial images of the right knee were obtained without IV contrast. Sagittal and coronal reconstructions were viewed. FINDINGS: There is a large right knee joint effusion with lipohemarthrosis. There is a comminuted displaced proximal right tibial fracture with marked depression of the posterior and mid aspect of the lateral tibial plateau of 1.7 cm. Multiple bone fragments are noted. Fracture extends to the medial tibial plateau which is depressed 2 mm. Focal nondisplaced component extends into the proximal diaphysis of the right tibia. There is no acute fracture of the distal right femur, proximal right fibula toward the patella. IMPRESSION: 1. Acute comminuted displaced proximal right tibial fracture with marked depression of the lateral tibial plateau and minimal depression of the medial tibial plateau. 2. Large right knee joint effusion with lipohemarthrosis. [~ rep ct add3]] R TIBIA/FIBULA 2 VIEWS ROUTINE CLINICAL HISTORY: Fall. Right knee pain COMPARISON: Knee radiographs October 18, 2013. FINDINGS: Note is made of an acute comminuted displaced proximal right tibial fracture with marked depression of the lateral tibial plateau. Vertical component extends into the diaphysis of the right tibia. No distal right tibial or fibular fracture is identified. There is no ankle mortise widening. A large right knee joint effusion with lipohemarthrosis is noted. There is no right fibular fracture. IMPRESSION: 1. Acute displaced comminuted proximal right tibial fracture with marked depression of the lateral tibial plateau. 2. Large right knee joint effusion with lipohemarthrosis.
[2017-11-08 23:18] VITALS: BP 127/72; PULSE 68; TEMP 37.4; O2SAT 95
[2017-11-08] MEDS: ZOLPIDEM TARTRATE 5 MG TAB PO PRN (23:28)
[2017-11-09] MEDS: ACETAMINOPHEN IV 1,000 MG in EMPTY BAG 0 ML IV SCH ×2 (01:04→09:28)
[2017-11-09] MEDS: OXYCODONE HCL IR 5 MG TAB (IMMEDIATE RELEASE) PO PRN ×2 (04:35→21:20)
[2017-11-09] MEDS: HYDROmorphone INJ 0.5 MG/0.5 ML SYR IV PRN ×4 (04:40→21:40)
[2017-11-09] MEDS ORDERED: NURSING VERBAL MED ORDER ONE ×2 (06:00→07:45)
[2017-11-09] MEDS: INSULIN ASPART 100 UNITS/ML 3 ML PEN SC SCH ×3 (06:00→18:00)
[2017-11-09 07:10] VITALS: BP 127/72; PULSE 65; TEMP 37.3; O2SAT 96
[2017-11-09 07:14] LABS: BASO % 0.4 %; BASO ABS # 0.04 K/uL (0-0.2); EOS % 4.2 %; EOS ABS # 0.41 K/uL (0-0.5); HEMATOCRIT 34.6 % (37-47); HEMOGLOBIN 11.8 g/dL (12.0-16.0); IG# 0.03 K/uL (0.00-0.02); LYMPH % 27.3 %; LYMPH ABS # 2.66 K/uL (1.2-3.4); MEAN CELL VOLUME 93.8 fL (80-100); MEAN CORPUSCULAR HGB CONC 34.1 g/dl (32-36); MEAN PLATELET VOLUME 10.4 fL (7.4-10.4); MONO ABS # 1.07 K/uL (0.11-0.59); NEUT % 56.8 %; NEUT ABS # 5.55 K/uL (1.4-6.5); PLATELET COUNT 195 K/uL (130-400); RED CELL DISTRIBUTION WIDTH CV 12.5 % (11.5-14.5); RED CELL DISTRIBUTION WIDTH SD 42.4 fL (36.4-46.3); WHITE BLOOD COUNT 9.76 K/uL (4.8-10.8)
[2017-11-09 07:46] LABS: CALCIUM 8.2 mg/dl (8.5-10.1); CREATININE 0.72 mg/dl (0.60-1.20)
[2017-11-09] MEDS: D5NSS + 20MEQ KCL 1,000 ML IV SCH (09:29)
[2017-11-09] MEDS ORDERED: LIDOCAINE HCL 2% 2 ML VIAL (20MG/ML) ONE (14:16)
[2017-11-09] MEDS ORDERED: MIDAZOLAM HCL 1 MG/ML 2ML VIAL ONE (14:16)
[2017-11-09] MEDS ORDERED: FENTANYL CITRATE INJ 50 MCG/1 ML 2 ML VIAL ONE ×2 (14:16→17:41)
[2017-11-09] MEDS ORDERED: PROPOFOL IV EMULSION 10 MG/ML 20 ML VIAL ONE (14:16)
[2017-11-09] MEDS ORDERED: ONDANSETRON INJ 2 MG/ML 2 ML VIAL ONE ×2 (14:16→14:49)
[2017-11-09] MEDS ORDERED: DEXAMETHASONE SOD INJ 4 MG/ML VIAL ONE ×2 (14:16→14:33)
[2017-11-09] MEDS ORDERED: CEFAZOLIN SOD 2000MG/15 ML IV PUSH ONE (14:31)
[2017-11-09] MEDS ORDERED: BUPIVACAINE/EPINEPHRINE 0.25% 1:200,000 30 ML VIAL ONE (14:33)
[2017-11-09] MEDS ORDERED: BACITRACIN 50000 UNIT VIAL ONE (14:46)
--- NOTE | 2017-11-09 14:47 | Orthopedic Progress Note ---
Orthopedic Progress Note Date of Service Nov 09, 2017. Subjective Additional Notes: Patient seen in preoperative holding area, comfortable, pain much improved today , no acute issues overnight. N.p.o. for surgery. Objective Right lower extremity is neurovascular sensory intact, +2 dorsalis pedis pulse, capillary refill less than 2 seconds. Patient has chronic decreased sensation at baseline. Compartments soft nontender, positive wrinkle sign, Date Time Temp Pulse Resp B/P (MAP) Pulse Ox O2 Delivery O2 Flow Rate FiO2 11/09/17 07:55 Room Air 11/09/17 07:10 37.3 65 18 127/72 (90) 96 Room Air 11/08/17 23:18 37.4 68 18 127/72 (90) 95 Room Air 11/08/17 23:15 Room Air 11/08/17 15:45 96 Room Air 11/08/17 15:15 37.5 75 22 144/79 (100) 96 Room Air Laboratory Results 24 Hours: Test 11/09/17 06:32 White Blood Count 9.76 K/uL Red Blood Count 3.69 M/uL Hemoglobin 11.8 g/dL Hematocrit 34.6 % Mean Corpuscular Volume 93.8 fL Mean Corpuscular Hemoglobin 32.0 pg Mean Corpuscular Hemoglobin Concent 34.1 g/dl Platelet Count 195 K/uL Mean Platelet Volume 10.4 fL Neutrophils (%) (Auto) 56.8 % Lymphocytes (%) (Auto) 27.3 % Monocytes (%) (Auto) 11.0 % Eosinophils (%) (Auto) 4.2 % Basophils (%) (Auto) 0.4 % Neutrophils # (Auto) 5.55 K/uL Lymphocytes # (Auto) 2.66 K/uL Monocytes # (Auto) 1.07 K/uL Eosinophils # (Auto) 0.41 K/uL Basophils # (Auto) 0.04 K/uL Assessment & Plan Assessment: Right displaced comminuted tibial plateau fracture. Plan: I have indicated the patient for open reduction internal fixation of the right tibial plateau and possible bone graft. The risks benefits competitions of procedure were explained to the patient in detail and they include but not limited to infection, acute blood loss, blood clots, injury to surrounding nerves, vessels, bone, soft tissue, malunion, nonunion, chronic pain, stiffness , decreased function, failure of the implant, need for revision surgery or additional surgeries, cardiac and pulmonary events and . Patient wished to proceed with surgical intervention at this time and informed consent was obtained.
[2017-11-09] MEDS ORDERED: PROMETHAZINE HCL INJ 6.25 MG in SODIUM CHLORIDE 0.9% 50ML 50 ML IV PRN (16:45)
[2017-11-09] MEDS ORDERED: ATROPINE SULFATE 0.1 MG/ML 5ML SYR IV PRN (16:45)
[2017-11-09] MEDS ORDERED: HYDROmorphone INJ 1 MG/ML SYR IV PRN (16:45)
[2017-11-09] MEDS ORDERED: ONDANSETRON INJ 2 MG/ML 2 ML VIAL IV PRN ×2 (16:45→18:30)
[2017-11-09] MEDS ORDERED: EpHEDrine SULFATE INJ 50 MG/ML AMP IV PRN (16:45)
--- NOTE | 2017-11-09 16:57 | Progress Note ---
Internal Med Progress Note Date of Service: Nov 09, 2017. Provider Documentation: SUBJECTIVE: Seen and examined the patient while in PACU Patient is drowsy currently Denies leg pain Could not provide much history OBJECTIVE: Vital Signs-as noted below Physical Exam: General Appearance:Moderately built and nourished, no apparent distress, +Drowsy Head: normocephalic, Atraumatic Eyes: normal inspection, EOMI, PERRL Neck: supple, Trachea midline Respiratory/Chest: Normal breath sounds, CTA Cardiovascular: S1, S2, +Tachycardia, No murmur Abdomen/GI:Soft, Non tender, Bowel sounds present Extremities/Musculoskelatal:normal inspection, no edema, RLE in dressing Neurologic/Psych:AAOX3, grossly no focal neurological deficits Skin: normal color, warm Lab data as noted below. ASSESSMENT & PLAN: Patient is a 77 yr female who presents with mechanical fall and was found to have right Tibial fracture Right displaced comminuted tibial plateau fracture. S/P mechanical Fall S/O ORIF POD #0 Appreciate Orthopedics help pain control Bowel regimen to prevent constipation Monitor CBC for post Op anemia H/O breast cancer, ovarian cancer S/P lumpectomy and chemo H/O Prediabetes A1C:6.4 Hold metformin Monitor BGs Continue ISS chronic constipation Bowel regimen as needed H/O Pancreatitis s/p cholecystectomy s/p pancreatic stent and removal stable. DVT Px: Lovenox SQ Disposition: PT/OT prior to DC Vital Signs: Date Time Temp Pulse Resp B/P (MAP) Pulse Ox O2 Delivery O2 Flow Rate FiO2 11/09/17 07:55 Room Air 11/09/17 07:10 37.3 65 18 127/72 (90) 96 Room Air 11/08/17 23:18 37.4 68 18 127/72 (90) 95 Room Air 11/08/17 23:15 Room Air Lab Results: Results Past 24 Hours Test 11/08/17 21:10 11/09/17 05:31 11/09/17 06:32 11/09/17 11:59 Range/Units Bedside Glucose 121 129 120 70-90 mg/dl White Blood Count 9.76 4.8-10.8 K/uL Red Blood Count 3.69 4.2-5.4 M/uL Hemoglobin 11.8 12.0-16.0 g/dL Hematocrit 34.6 37-47 % Mean Corpuscular Volume 93.8 80-100 fL Mean Corpuscular Hemoglobin 32.0 25-34 pg Mean Corpuscular Hemoglobin Concent 34.1 32-36 g/dl Platelet Count 195 130-400 K/uL Mean Platelet Volume 10.4 7.4-10.4 fL Neutrophils (%) (Auto) 56.8 % Lymphocytes (%) (Auto) 27.3 % Monocytes (%) (Auto) 11.0 % Eosinophils (%) (Auto) 4.2 % Basophils (%) (Auto) 0.4 % Neutrophils # (Auto) 5.55 1.4-6.5 K/uL Lymphocytes # (Auto) 2.66 1.2-3.4 K/uL Monocytes # (Auto) 1.07 0.11-0.59 K/uL Eosinophils # (Auto) 0.41 0-0.5 K/uL Basophils # (Auto) 0.04 0-0.2 K/uL RDW Standard Deviation 42.4 36.4-46.3 fL RDW Coefficient of Variation 12.5 11.5-14.5 % Immature Granulocyte % (Auto) 0.3 % Immature Granulocyte # (Auto) 0.03 0.00-0.02 K/uL Sodium Level 138 136-145 mmol/L Potassium Level 4.0 3.5-5.1 mmol/L Chloride Level 107 98-107 mmol/L Carbon Dioxide Level 25 21-32 mmol/L Anion Gap 6.0 3-11 mmol/L Blood Urea Nitrogen 11 7-18 mg/dl Creatinine 0.72 0.60-1.20 mg/dl Est Creatinine Clear Calc Drug Dose 84.0 ml/min Estimated GFR () 94.3 Estimated GFR (Non- 81.3 BUN/Creatinine Ratio 15.7 10-20 Random Glucose 138 70-99 mg/dl Calcium Level 8.2 8.5-10.1 mg/dl Magnesium Level 2.1 1.8-2.4 mg/dl
[2017-11-09] MEDS ORDERED: ROCURONIUM BROMIDE 10 MG/ML 5 ML VIAL ONE (16:59)
[2017-11-09] MEDS ORDERED: POLYETHYLENE (MIRALAX) 17 GM PACK PO PRN (17:00)
[2017-11-09] MEDS ORDERED: SUCCINYLCHOLINE 100MG/5ML SYR IV ONE (17:00)
[2017-11-09] MEDS ORDERED: DOCUSATE SODIUM 100 MG CAP PO PRN (17:00)
--- NOTE | 2017-11-09 18:12 | [facility] Post Operative Brief Note ---
Immediate Operative Summary Operative Date Nov 09, 2017. Pre-Operative Diagnosis Right Tibial Plateau Fracture Post-Operative Diagnosis Right Tibial Plateau Fracture Procedure(s) Performed Open Reduction Internal Fixation Right Tibial Plateau Fracture, cancellous bone chips and DBX Surgeon Dr. Jeffery Gunderson Azure Developer Surgeon(s) Telma Hood PA-C Estimated Blood Loss 110 ml Findings Consistent with Post-Op Diagnosis Fluids (cc crystalloids) 1000 Specimens none per surgeon Drains None Anesthesia Type General Complication(s) none Disposition Disposition: Recovery Room / PACU Overlapping Procedure I was present for: the critical portions of procedure. I was immediately available: during the entire case Back up surgeon: was not required during procedure
[2017-11-09] MEDS ORDERED: GLYCOPYRROLATE INJ 0.2 MG/ML VIAL ONE (18:17)
[2017-11-09] MEDS ORDERED: NEOSTIGMINE METHYLSULFATE 5 MG/5 ML SYR ONE (18:17)
--- NOTE | 2017-11-09 18:27 | [facility] Operative Report ---
Operative Report Operative Date Nov 09, 2017. Pre-Operative Diagnosis Right Tibial Plateau Fracture Post-Operative Diagnosis Right Tibial Plateau Fracture Procedure(s) Performed Open Reduction Internal Fixation Right Tibial Plateau Fracture, cancellous bone chips and DBX Surgeon Dr. Jeffery Gunderson Flexographic Press Helper Surgeon(s) Telma Hood PA-C Estimated Blood Loss 110 ml Findings See dictated op note Fluids 1000 Specimens none per surgeon Drains None Anesthesia Type General Complication(s) none Disposition Recovery Room / PACU Indications The patient is a 77 year old female who sustained a traumatic injury on 11/07/17 after a fall from 5-6 steps. She reports hitting right knee and her head but denies LOC. Subsequently seen at [facility] ED and dx with a right tibial plateau fracture. I have indicated the patient for open reduction internal fixation of the right tibial plateau and possible bone graft. The risks benefits competitions of procedure were explained to the patient in detail and they include but not limited to infection, acute blood loss, blood clots, injury to surrounding nerves, vessels, bone, soft tissue, malunion, nonunion, chronic pain , stiffness, decreased function, failure of the implant, need for revision surgery or additional surgeries, cardiac and pulmonary events and . Patient wished to proceed with surgical intervention at this time and informed consent was obtained. Description of Procedure Implants: 10 hole right 3.5 Locking Proximal Lateral Tibia Plate 65mm 3.5mm Locking screw x 3 80mm 3.5mm Locking screw x 4 45mm 3.5 Cortex screw x 1 34mm 3.5 Cortex screw x 1 38mm 3.5 Locking screw x 1 28mm 3.5 Locking screw x 2 26mm 3.5 Locking screw x 1 The patient was brought to the OR and transferred to the OR table in the supine position. After general anesthesia was induced a non-sterile tourniquet and padding was placed on the proximal thigh. The right lower extremity was prepped and draped in usual sterile fashion. Time out and site identification was performed and the leg was wrapped with esmarch bandage and the tourniquet was inflated to 300 mmHg. Next, a standard hockey stick anterolateral approach to the lateral tibial plateau was performed through skin and subcutaneous tissue and carried down to IT band. Adequate hemostasis was performed with electrocautery. A longitudinal split was made in the IT band inline with the incision. A submeniscal arthrotomy was performed. Vicryl tagging suture x 2 were placed into the meniscus/capsule elevating the meniscus allowing visualization of the joint surface. A significantly depressed large comminuted posterolateral piece of the articular surface was encountered. Next, a bone window was made carefully inferior to the joint surface utilizing artist chisels. The bone window was saved on the back table. Next, using a combination of curved bone tamps, the depressed articular segment was elevated to line it up with the remaining articular surface. This was done from below under direct visualization and C-arm fluoroscopy as well as direct visualization at the joint line. Once the articular surface was disimpacted and elevated to its anatomic position, 30 mL of allograft bone chips were impacted into the bone void followed by a mix of and 10ML DBX and 15 mL crushed allograft bone chips. These were impacted into the defect left underneath filling the bone void in it s entirety. Next, while utilizing C-arm fluoroscopy, K-wires were placed to provisionally hold the reduction of the articular surface. A 10 hole Synthes 3.5 proximal tibial nonlocking plate was fashioned to the lateral aspect of the tibial plateau, held in place with two K-wires. One cortical screw was placed distal to aid in reduction of the plate to the bone and four proximal locking screws were placed proximally. Next angled locking screw holes were filled with locking screws. One cortex screw was placed in the most distal screw hole and the remaining holes filled with locking screws secondary to poor purchase with cortex screws. All screws were placed in standard AO fashion. Next, K-wires that were initially placed were removed. C-arm fluoroscopy was used to confirm excellent position of the articular surface on both the AP and lateral fluoroscopic images, as well as positioning of all screws and hardware. Next, the wound was thoroughly irrigated with sterile saline with bacitracin. The submeniscal arthrotomy was closed using Vicryl tagging suture and tied down to the plate proximally. The IT band was closed with 0 Vicryl suture in figure- of-eight fashion followed by subcutaneous layer of 2-0 Vicryl sutures and jr for the skin. Sterile dressings were applied. The patient was placed into a knee immobilizer. Prior to closure, the tourniquet was deflated and hemostasis was obtained. There were no complications. Due to the complex nature of the procedure, the entire surgery was performed with the operational assistance of Francisco Hood PA-C. The assistant strength coach, under direct supervision, was involved in the actual performance of all aspects of the surgical procedure including patient positioning, hemostasis, tissue retraction, instrument management and wound closure. I attest to the content of the Intraoperative Record and any orders documented therein. Any exceptions are noted below.
[2017-11-09] MEDS ORDERED: MoRPHine SULFATE 4 MG/ML 1 ML CARP\\VIAL IV PRN (18:30)
[2017-11-09] MEDS ORDERED: MAGNESIUM HYDROXIDE SUSP 30 ML UDC PO PRN (18:30)
[2017-11-09] MEDS: FENTANYL CITRATE INJ 50 MCG/1 ML 2 ML VIAL IV PRN ×2 (18:48→18:55)
--- NOTE | 2017-11-09 19:06 | DIAGNOSTIC IMAGING REPORT ---
R KNEE 1 OR 2 VIEWS ROUTINE CLINICAL HISTORY: AP/LATERAL IN PACU RIGHT KNEE joint replacement COMPARISON: None. DISCUSSION: Plate and multiple orthogonal screws traversing the tibia. Joint spaces are well-preserved. Expected soft tissue postoperative change. IMPRESSION: Anatomic alignment post open reduction internal fixation The above report was generated using voice recognition software. It may contain grammatical, syntax or spelling errors. Electronically signed by: Jc Barton M.D. 11/09/2017 7:05 PM Dictated Date/Time: 11/09/2017 7:04 PM
--- NOTE | 2017-11-09 19:27 | DIAGNOSTIC IMAGING REPORT ---
R TIBIA/FIBULA 2 VIEWS ROUTINE CLINICAL HISTORY: RT ORIF TIB PLAT FX COMPARISON: None. DISCUSSION: Open reduction and internal fixation of the tibial fracture previously described. There is no evidence for soft tissue disruption of then the normal postoperative changes identified. IMPRESSION: Anatomic alignment post open reduction internal fixation. The above report was generated using voice recognition software. It may contain grammatical, syntax or spelling errors. Electronically signed by: Jc Barton M.D. 11/09/2017 7:25 PM Dictated Date/Time: 11/09/2017 7:24 PM
--- NOTE | 2017-11-09 19:42 | Anesthesiology Progress Note ---
Anesthesia Post Op Note Date & Time Nov 09, 2017 at 19:42 Vital Signs Pain Intensity: 3 Vital Signs Past 12 Hours Date Time Temp Pulse Resp B/P (MAP) Pulse Ox O2 Delivery O2 Flow Rate FiO2 11/09/17 19:20 79 14 154/82 94 Nasal Cannula 3 11/09/17 19:10 36.3 87 14 155/78 94 Nasal Cannula 3 11/09/17 19:00 92 14 153/82 93 Nasal Cannula 3 11/09/17 18:50 86 14 160/80 95 Oxymask 10 11/09/17 18:40 90 15 152/80 95 Oxymask 10 11/09/17 18:33 36.9 96 16 151/79 96 Oxymask 10 11/09/17 07:55 Room Air Notes Mental Status: alert / awake / arousable, participated in evaluation Pt Amnestic to Procedure: Yes Nausea / Vomiting: adequately controlled Pain: adequately controlled Airway Patency, RR, SpO2: stable & adequate BP & HR: stable & adequate Hydration State: stable & adequate Anesthetic Complications: no major complications apparent Block working well in pacu
[2017-11-09 19:45] VITALS: BP 156/78; PULSE 82; TEMP 37.2; O2SAT 95
[2017-11-09 20:15] VITALS: BP 146/90; PULSE 82; TEMP 36.9; O2SAT 95
[2017-11-09] MEDS: POTASSIUM CHLORIDE INJ 10 MEQ in SODIUM CHLORIDE 0.9% 1000ML 1,000 ML IV SCH (21:40)
[2017-11-09] MEDS: CEFAZOLIN IV 2,000 MG in SYRINGE 0 ML IV SCH (21:44)
[2017-11-09 21:45] VITALS: BP 125/68; PULSE 68; TEMP 36.6; O2SAT 98
[2017-11-09] MEDS: ACETAMINOPHEN 500 MG TAB PO SCH (21:45)
[2017-11-09] MEDS: DOCUSATE SODIUM 100 MG CAP PO SCH (21:45)
[2017-11-09 22:47] VITALS: BP 134/77; PULSE 88; TEMP 36.9; O2SAT 92
[2017-11-09] MEDS: ZOLPIDEM TARTRATE 5 MG TAB PO PRN (23:59)
[2017-11-10] MEDS: INSULIN ASPART 100 UNITS/ML 3 ML PEN SC SCH ×5 (00:21→20:32)
[2017-11-10] MEDS: HYDROmorphone INJ 0.5 MG/0.5 ML SYR IV PRN ×5 (01:38→23:23)
[2017-11-10] MEDS ORDERED: NURSING VERBAL MED ORDER ONE (05:00)
[2017-11-10] MEDS: ACETAMINOPHEN 500 MG TAB PO SCH ×3 (05:09→21:38)
[2017-11-10] MEDS: POTASSIUM CHLORIDE INJ 10 MEQ in SODIUM CHLORIDE 0.9% 1000ML 1,000 ML IV SCH (05:11)
[2017-11-10] MEDS: CEFAZOLIN IV 2,000 MG in SYRINGE 0 ML IV SCH (05:12)
[2017-11-10 06:58] LABS: BASO % 0.1 %; BASO ABS # 0.01 K/uL (0-0.2); EOS % 0.1 %; EOS ABS # 0.01 K/uL (0-0.5); HEMOGLOBIN 10.6 g/dL (12.0-16.0); IG# 0.04 K/uL (0.00-0.02); LYMPH % 13.7 %; LYMPH ABS # 1.65 K/uL (1.2-3.4); MEAN CELL VOLUME 92.8 fL (80-100); MEAN CORPUSCULAR HEMOGLOBIN 30.7 pg (25-34); MEAN CORPUSCULAR HGB CONC 33.1 g/dl (32-36); MEAN PLATELET VOLUME 10.1 fL (7.4-10.4); MONO % 11.6 %; MONO ABS # 1.39 K/uL (0.11-0.59); NEUT % 74.2 %; NEUT ABS # 8.91 K/uL (1.4-6.5); PLATELET COUNT 204 K/uL (130-400); RED CELL DISTRIBUTION WIDTH CV 12.5 % (11.5-14.5); RED CELL DISTRIBUTION WIDTH SD 42.4 fL (36.4-46.3); WHITE BLOOD COUNT 12.01 K/uL (4.8-10.8)
[2017-11-10 07:34] LABS: CALCIUM 8.3 mg/dl (8.5-10.1); CREATININE 0.74 mg/dl (0.60-1.20); POTASSIUM 4.1 mmol/L (3.5-5.1)
[2017-11-10 07:39] VITALS: BP 127/65; PULSE 69; TEMP 36.5; O2SAT 96
[2017-11-10] MEDS: OXYCODONE HCL IR 5 MG TAB (IMMEDIATE RELEASE) PO PRN ×3 (07:42→19:31)
--- NOTE | 2017-11-10 09:05 | Anesthesiology Progress Note ---
Anesthesia Post Op Note Date & Time Nov 10, 2017 at 09:05 Vital Signs Pain Intensity: 10.0 Vital Signs Past 12 Hours Date Time Temp Pulse Resp B/P (MAP) Pulse Ox O2 Delivery O2 Flow Rate FiO2 11/10/17 07:54 Room Air 11/10/17 07:39 36.5 69 18 127/65 (85) 96 Room Air 11/10/17 00:00 Room Air 11/09/17 22:47 36.9 88 18 134/77 (96) 92 Room Air 11/09/17 21:45 36.6 68 18 125/68 (87) 98 Room Air Notes Mental Status: alert / awake / arousable, participated in evaluation Pt Amnestic to Procedure: Yes Nausea / Vomiting: adequately controlled Pain: adequately controlled Airway Patency, RR, SpO2: stable & adequate BP & HR: stable & adequate Hydration State: stable & adequate Anesthetic Complications: no major complications apparent
[2017-11-10] MEDS: DOCUSATE SODIUM 100 MG CAP PO SCH ×2 (10:40→21:38)
[2017-11-10] MEDS: ENOXAPARIN 40 MG/0.4 ML SYR SQ SCH (10:40)
[2017-11-10] MEDS: MULTIVITAMIN TAB PO SCH (10:40)
--- NOTE | 2017-11-10 13:03 | Orthopedic Progress Note ---
Orthopedic Progress Note Date of Service Nov 09, 2017. Subjective Additional Notes: Postoperative progress note Patient was seen in the PACU upon completion of surgery, comfortable, block wearing off, complaining of pain, no acute issues, denies shortness breath chest pain nausea vomiting diarrhea. Objective No apparent distress, alert and oriented 3 Right lower extremity is neurovascular sensory intact, + EHL/FHL/TA/GS, knee immobilizer and dressing intact clean and dry, +2 dorsalis pedis pulse Date Time Temp Pulse Resp B/P (MAP) Pulse Ox O2 Delivery O2 Flow Rate FiO2 11/10/17 07:54 Room Air 11/10/17 07:39 36.5 69 18 127/65 (85) 96 Room Air 11/10/17 00:00 Room Air 11/09/17 22:47 36.9 88 18 134/77 (96) 92 Room Air 11/09/17 21:45 36.6 68 18 125/68 (87) 98 Room Air 11/09/17 20:15 36.9 82 18 146/90 (108) 95 Nasal Cannula 2.0 11/09/17 19:45 Nasal Cannula 2.0 11/09/17 19:45 95 Nasal Cannula 2.0 11/09/17 19:45 37.2 82 18 156/78 (104) 95 Nasal Cannula 2.0 11/09/17 19:20 79 14 154/82 94 Nasal Cannula 3 11/09/17 19:10 36.3 87 14 155/78 94 Nasal Cannula 3 11/09/17 19:00 92 14 153/82 93 Nasal Cannula 3 11/09/17 18:50 86 14 160/80 95 Oxymask 10 11/09/17 18:40 90 15 152/80 95 Oxymask 10 11/09/17 18:33 36.9 96 16 151/79 96 Oxymask 10 Laboratory Results 24 Hours: Test 11/10/17 06:34 White Blood Count 12.01 K/uL Red Blood Count 3.45 M/uL Hemoglobin 10.6 g/dL Hematocrit 32.0 % Mean Corpuscular Volume 92.8 fL Mean Corpuscular Hemoglobin 30.7 pg Mean Corpuscular Hemoglobin Concent 33.1 g/dl Platelet Count 204 K/uL Mean Platelet Volume 10.1 fL Neutrophils (%) (Auto) 74.2 % Lymphocytes (%) (Auto) 13.7 % Monocytes (%) (Auto) 11.6 % Eosinophils (%) (Auto) 0.1 % Basophils (%) (Auto) 0.1 % Neutrophils # (Auto) 8.91 K/uL Lymphocytes # (Auto) 1.65 K/uL Monocytes # (Auto) 1.39 K/uL Eosinophils # (Auto) 0.01 K/uL Basophils # (Auto) 0.01 K/uL Prothromb Time International Ratio 1.0 Prothrombin Time 10.3 SECONDS Assessment & Plan Assessment: Status post ORIF right tibial plateau Plan: -Ancef 24 -DVT prophylaxis Lovenox 4 weeks -Nonweightbearing right lower extremity -Ice elevation -Postoperative x-ray demonstrates near-anatomic alignment of the articular surface, improvement in fracture positioning, orthopedic implants well aligned and well fixed. -A.m. labs
--- NOTE | 2017-11-10 13:05 | Orthopedic Progress Note ---
Orthopedic Progress Note Date of Service Nov 10, 2017. Subjective Additional Notes: Patient seen lying in bed, comfortable, no acute issues overnight, pain well controlled. Objective No apparent distress, alert and oriented 3 Right lower extremity is neurovascular sensory intact, dressing and knee immobilizer clean dry and intact, +2 dorsalis pedis pulse, compartments soft nontender, drain intact. Date Time Temp Pulse Resp B/P (MAP) Pulse Ox O2 Delivery O2 Flow Rate FiO2 11/10/17 07:54 Room Air 11/10/17 07:39 36.5 69 18 127/65 (85) 96 Room Air 11/10/17 00:00 Room Air 11/09/17 22:47 36.9 88 18 134/77 (96) 92 Room Air 11/09/17 21:45 36.6 68 18 125/68 (87) 98 Room Air 11/09/17 20:15 36.9 82 18 146/90 (108) 95 Nasal Cannula 2.0 11/09/17 19:45 Nasal Cannula 2.0 11/09/17 19:45 95 Nasal Cannula 2.0 11/09/17 19:45 37.2 82 18 156/78 (104) 95 Nasal Cannula 2.0 11/09/17 19:20 79 14 154/82 94 Nasal Cannula 3 11/09/17 19:10 36.3 87 14 155/78 94 Nasal Cannula 3 11/09/17 19:00 92 14 153/82 93 Nasal Cannula 3 11/09/17 18:50 86 14 160/80 95 Oxymask 10 11/09/17 18:40 90 15 152/80 95 Oxymask 10 11/09/17 18:33 36.9 96 16 151/79 96 Oxymask 10 Laboratory Results 24 Hours: Test 11/10/17 06:34 White Blood Count 12.01 K/uL Red Blood Count 3.45 M/uL Hemoglobin 10.6 g/dL Hematocrit 32.0 % Mean Corpuscular Volume 92.8 fL Mean Corpuscular Hemoglobin 30.7 pg Mean Corpuscular Hemoglobin Concent 33.1 g/dl Platelet Count 204 K/uL Mean Platelet Volume 10.1 fL Neutrophils (%) (Auto) 74.2 % Lymphocytes (%) (Auto) 13.7 % Monocytes (%) (Auto) 11.6 % Eosinophils (%) (Auto) 0.1 % Basophils (%) (Auto) 0.1 % Neutrophils # (Auto) 8.91 K/uL Lymphocytes # (Auto) 1.65 K/uL Monocytes # (Auto) 1.39 K/uL Eosinophils # (Auto) 0.01 K/uL Basophils # (Auto) 0.01 K/uL Prothromb Time International Ratio 1.0 Prothrombin Time 10.3 SECONDS Assessment & Plan Assessment: Status post ORIF right tibial plateau Postoperative day #1 Plan: -Ancef 24 -DVT prophylaxis Lovenox 4 weeks -Nonweightbearing right lower extremity -Ice elevation -Postoperative x-ray demonstrates near-anatomic alignment of the articular surface, improvement in fracture positioning, orthopedic implants well aligned and well fixed. -A.m. labs -Monitor drain
--- NOTE | 2017-11-10 13:13 | Orthopedic Progress Note ---
Orthopedic Progress Note Date of Service Nov 10, 2017. Subjective Post OP Day: 1 Reports: feeling well, Denies: complaints, calf pain Additional Notes: Patient lying in bed. She is doing well without complaint. Objective calves soft nontender, N/V intact, dressing C/D/I, A&O x3, toes mobile Knee immobilizer in place. Date Time Temp Pulse Resp B/P (MAP) Pulse Ox O2 Delivery O2 Flow Rate FiO2 11/10/17 07:54 Room Air 11/10/17 07:39 36.5 69 18 127/65 (85) 96 Room Air 11/10/17 00:00 Room Air 11/09/17 22:47 36.9 88 18 134/77 (96) 92 Room Air 11/09/17 21:45 36.6 68 18 125/68 (87) 98 Room Air 11/09/17 20:15 36.9 82 18 146/90 (108) 95 Nasal Cannula 2.0 11/09/17 19:45 Nasal Cannula 2.0 11/09/17 19:45 95 Nasal Cannula 2.0 11/09/17 19:45 37.2 82 18 156/78 (104) 95 Nasal Cannula 2.0 11/09/17 19:20 79 14 154/82 94 Nasal Cannula 3 11/09/17 19:10 36.3 87 14 155/78 94 Nasal Cannula 3 11/09/17 19:00 92 14 153/82 93 Nasal Cannula 3 11/09/17 18:50 86 14 160/80 95 Oxymask 10 11/09/17 18:40 90 15 152/80 95 Oxymask 10 11/09/17 18:33 36.9 96 16 151/79 96 Oxymask 10 Laboratory Results 24 Hours: Test 11/10/17 06:34 White Blood Count 12.01 K/uL Red Blood Count 3.45 M/uL Hemoglobin 10.6 g/dL Hematocrit 32.0 % Mean Corpuscular Volume 92.8 fL Mean Corpuscular Hemoglobin 30.7 pg Mean Corpuscular Hemoglobin Concent 33.1 g/dl Platelet Count 204 K/uL Mean Platelet Volume 10.1 fL Neutrophils (%) (Auto) 74.2 % Lymphocytes (%) (Auto) 13.7 % Monocytes (%) (Auto) 11.6 % Eosinophils (%) (Auto) 0.1 % Basophils (%) (Auto) 0.1 % Neutrophils # (Auto) 8.91 K/uL Lymphocytes # (Auto) 1.65 K/uL Monocytes # (Auto) 1.39 K/uL Eosinophils # (Auto) 0.01 K/uL Basophils # (Auto) 0.01 K/uL Prothromb Time International Ratio 1.0 Prothrombin Time 10.3 SECONDS Assessment & Plan Assessment: Status post ORIF right tibial plateau Postoperative day #1 Plan: -Ancef 24 -DVT prophylaxis Lovenox 4 weeks -Nonweightbearing right lower extremity -Ice elevation -Postoperative x-ray demonstrates near-anatomic alignment of the articular surface, improvement in fracture positioning, orthopedic implants well aligned and well fixed. -A.m. labs -Monitor drain
--- NOTE | 2017-11-10 13:13 | Progress Note ---
Internal Med Progress Note Date of Service: Nov 10, 2017. Provider Documentation: SUBJECTIVE: Seen and examined at bedside Right knee pain is controlled Denies any chest pain, nausea, dizziness Family at bedside No other complaints OBJECTIVE: Vital Signs-as noted below Physical Exam: General Appearance:Moderately built and nourished, no apparent distress Head: normocephalic, Atraumatic Eyes: normal inspection, EOMI, PERRL Neck: supple, Trachea midline Respiratory/Chest: Normal breath sounds, CTA Cardiovascular: S1, S2, No murmur Abdomen/GI:Soft, Non tender, Bowel sounds present Extremities/Musculoskelatal:normal inspection, no edema, RLE in dressing Neurologic/Psych:AAOX3, grossly no focal neurological deficits Skin: normal color, warm Lab data as noted below. ASSESSMENT & PLAN: Patient is a 77 yr female who presents with mechanical fall and was found to have right Tibial fracture Right displaced comminuted tibial plateau fracture. S/P mechanical Fall S/O ORIF POD # 1 Appreciate Orthopedics help pain is controlled Bowel regimen to prevent constipation Monitor CBC for post Op anemia +Flatus H/O breast cancer, ovarian cancer S/P lumpectomy and chemo H/O Prediabetes A1C:6.4 Hold metformin Monitor BGs Continue ISS chronic constipation Bowel regimen as needed H/O Pancreatitis s/p cholecystectomy s/p pancreatic stent and removal stable. DVT Px: Lovenox SQ Disposition: May need Rehab placement PT/OT inpatient services rn consulted Vital Signs: Date Time Temp Pulse Resp B/P (MAP) Pulse Ox O2 Delivery O2 Flow Rate FiO2 11/10/17 07:54 Room Air 11/10/17 07:39 36.5 69 18 127/65 (85) 96 Room Air 11/10/17 00:00 Room Air 11/09/17 22:47 36.9 88 18 134/77 (96) 92 Room Air 11/09/17 21:45 36.6 68 18 125/68 (87) 98 Room Air 11/09/17 20:15 36.9 82 18 146/90 (108) 95 Nasal Cannula 2.0 11/09/17 19:45 Nasal Cannula 2.0 11/09/17 19:45 95 Nasal Cannula 2.0 11/09/17 19:45 37.2 82 18 156/78 (104) 95 Nasal Cannula 2.0 11/09/17 19:20 79 14 154/82 94 Nasal Cannula 3 11/09/17 19:10 36.3 87 14 155/78 94 Nasal Cannula 3 11/09/17 19:00 92 14 153/82 93 Nasal Cannula 3 11/09/17 18:50 86 14 160/80 95 Oxymask 10 11/09/17 18:40 90 15 152/80 95 Oxymask 10 11/09/17 18:33 36.9 96 16 151/79 96 Oxymask 10 Lab Results: Results Past 24 Hours Test 11/09/17 23:45 11/10/17 06:34 11/10/17 08:12 11/10/17 12:05 Range/Units Bedside Glucose 241 135 110 70-90 mg/dl White Blood Count 12.01 4.8-10.8 K/uL Red Blood Count 3.45 4.2-5.4 M/uL Hemoglobin 10.6 12.0-16.0 g/dL Hematocrit 32.0 37-47 % Mean Corpuscular Volume 92.8 80-100 fL Mean Corpuscular Hemoglobin 30.7 25-34 pg Mean Corpuscular Hemoglobin Concent 33.1 32-36 g/dl Platelet Count 204 130-400 K/uL Mean Platelet Volume 10.1 7.4-10.4 fL Neutrophils (%) (Auto) 74.2 % Lymphocytes (%) (Auto) 13.7 % Monocytes (%) (Auto) 11.6 % Eosinophils (%) (Auto) 0.1 % Basophils (%) (Auto) 0.1 % Neutrophils # (Auto) 8.91 1.4-6.5 K/uL Lymphocytes # (Auto) 1.65 1.2-3.4 K/uL Monocytes # (Auto) 1.39 0.11-0.59 K/uL Eosinophils # (Auto) 0.01 0-0.5 K/uL Basophils # (Auto) 0.01 0-0.2 K/uL RDW Standard Deviation 42.4 36.4-46.3 fL RDW Coefficient of Variation 12.5 11.5-14.5 % Immature Granulocyte % (Auto) 0.3 % Immature Granulocyte # (Auto) 0.04 0.00-0.02 K/uL Prothrombin Time 10.3 9.0-12.0 SECONDS Prothromb Time International Ratio 1.0 0.9-1.1 Sodium Level 136 136-145 mmol/L Potassium Level 4.1 3.5-5.1 mmol/L Chloride Level 104 98-107 mmol/L Carbon Dioxide Level 26 21-32 mmol/L Anion Gap 6.0 3-11 mmol/L Blood Urea Nitrogen 11 7-18 mg/dl Creatinine 0.74 0.60-1.20 mg/dl Est Creatinine Clear Calc Drug Dose 81.7 ml/min Estimated GFR () 91.2 Estimated GFR (Non- 78.7 BUN/Creatinine Ratio 14.6 10-20 Random Glucose 131 70-99 mg/dl Calcium Level 8.3 8.5-10.1 mg/dl Magnesium Level 2.0 1.8-2.4 mg/dl
[2017-11-10 15:07] VITALS: BP 120/65; PULSE 82; TEMP 38.1; O2SAT 95
[2017-11-10 15:47] VITALS: TEMP 36.9
[2017-11-10] MEDS: ZOLPIDEM TARTRATE 5 MG TAB PO PRN (23:22)
[2017-11-10 23:25] VITALS: BP 146/80; PULSE 77; TEMP 37; O2SAT 96
[2017-11-11] MEDS: OXYCODONE HCL IR 5 MG TAB (IMMEDIATE RELEASE) PO PRN ×5 (00:15→20:22)
[2017-11-11] MEDS: HYDROmorphone INJ 0.5 MG/0.5 ML SYR IV PRN ×3 (02:35→14:52)
[2017-11-11] MEDS: ACETAMINOPHEN 500 MG TAB PO SCH ×3 (05:43→20:41)
[2017-11-11 07:20] VITALS: BP 126/65; PULSE 78; TEMP 37.3; O2SAT 91
[2017-11-11 07:45] LABS: HEMATOCRIT 30.7 % (37-47); HEMOGLOBIN 10.2 g/dL (12.0-16.0); MEAN CELL VOLUME 93.9 fL (80-100); MEAN CORPUSCULAR HEMOGLOBIN 31.2 pg (25-34); MEAN CORPUSCULAR HGB CONC 33.2 g/dl (32-36); MEAN PLATELET VOLUME 9.9 fL (7.4-10.4); PLATELET COUNT 217 K/uL (130-400); RED CELL DISTRIBUTION WIDTH CV 12.7 % (11.5-14.5); RED CELL DISTRIBUTION WIDTH SD 43.2 fL (36.4-46.3); WHITE BLOOD COUNT 12.53 K/uL (4.8-10.8)
[2017-11-11] MEDS: INSULIN ASPART 100 UNITS/ML 3 ML PEN SC SCH ×4 (08:00→20:43)
[2017-11-11] MEDS: DOCUSATE SODIUM 100 MG CAP PO SCH ×2 (08:19→20:40)
[2017-11-11] MEDS: MULTIVITAMIN TAB PO SCH (08:19)
[2017-11-11 08:21] LABS: CALCIUM 8.5 mg/dl (8.5-10.1); CREATININE 0.71 mg/dl (0.60-1.20); POTASSIUM 3.8 mmol/L (3.5-5.1)
[2017-11-11] MEDS: ENOXAPARIN 40 MG/0.4 ML SYR SQ SCH (10:23)
--- NOTE | 2017-11-11 11:00 | Orthopedic Progress Note ---
Orthopedic Progress Note Date of Service Nov 11, 2017. Subjective Post OP Day: 2 Reports: complaints (Pain not well controlled overnight, better now, but pt appears unrealistic in expectations for pain control) Objective dressing C/D/I, toes mobile Date Time Temp Pulse Resp B/P (MAP) Pulse Ox O2 Delivery O2 Flow Rate FiO2 11/11/17 07:20 37.3 78 18 126/65 (85) 91 Room Air 11/10/17 23:25 37.0 77 16 146/80 (102) 96 Room Air 11/10/17 23:25 Room Air 11/10/17 15:50 Room Air 11/10/17 15:47 36.9 11/10/17 15:07 38.1 82 18 120/65 (83) 95 Room Air Laboratory Results 24 Hours: Test 11/11/17 07:32 Hematocrit 30.7 % Hemoglobin 10.2 g/dL Assessment & Plan Assessment: 77 yo female stable POD #2 Status post ORIF right tibial plateau Plan: -DVT prophylaxis Lovenox 4 weeks -Nonweightbearing right lower extremity -Ice elevation -Postoperative x-ray demonstrates near-anatomic alignment of the articular surface, improvement in fracture positioning, orthopedic implants well aligned and well fixed. -D/C planning- pt likely to need rehab/SNF
[2017-11-11] MEDS ORDERED: OXYCODONE HCL 15 MG TABCR (OXYCONTIN) PO ONE (15:08)
[2017-11-11 15:12] VITALS: BP 111/64; PULSE 78; TEMP 37; O2SAT 93
--- NOTE | 2017-11-11 15:24 | Progress Note ---
Internal Med Progress Note Date of Service: Nov 11, 2017. Provider Documentation: SUBJECTIVE: Seen and examined at bedside Complains of pain at surgical site Denies any chest pain, nausea, dizziness No other complaints OBJECTIVE: Vital Signs-as noted below Physical Exam: General Appearance:Moderately built and nourished, no apparent distress Head: normocephalic, Atraumatic Eyes: normal inspection, EOMI, PERRL Neck: supple, Trachea midline Respiratory/Chest: Normal breath sounds, CTA Cardiovascular: S1, S2, No murmur Abdomen/GI:Soft, Non tender, Bowel sounds present Extremities/Musculoskelatal:normal inspection, no edema, RLE in dressing Neurologic/Psych:AAOX3, grossly no focal neurological deficits Skin: normal color, warm Lab data as noted below. ASSESSMENT & PLAN: Patient is a 77 yr female who presents with mechanical fall and was found to have right Tibial fracture Right displaced comminuted tibial plateau fracture. S/P mechanical Fall S/O ORIF POD # 2 Appreciate Orthopedics help pain control Bowel regimen to prevent constipation Monitor CBC DVT prophylaxis: Lovenox 4 weeks Nonweightbearing right lower extremity May need rehab H/O breast cancer, ovarian cancer S/P lumpectomy and chemo H/O Prediabetes A1C:6.4 Hold metformin Monitor BGs Continue ISS chronic constipation Bowel regimen as needed H/O Pancreatitis s/p cholecystectomy s/p pancreatic stent and removal stable. DVT Px: Lovenox SQ Disposition: May need Rehab placement PT/OT social human services assistants consulted Vital Signs: Date Time Temp Pulse Resp B/P (MAP) Pulse Ox O2 Delivery O2 Flow Rate FiO2 11/11/17 15:12 37.0 78 16 111/64 (80) 93 Room Air 11/11/17 07:50 Room Air 11/11/17 07:20 37.3 78 18 126/65 (85) 91 Room Air 11/10/17 23:25 37.0 77 16 146/80 (102) 96 Room Air 11/10/17 23:25 Room Air 11/10/17 15:50 Room Air 11/10/17 15:47 36.9 Lab Results: Results Past 24 Hours Test 11/10/17 16:57 11/10/17 20:26 11/11/17 07:32 11/11/17 08:13 Range/Units Bedside Glucose 109 128 126 70-90 mg/dl White Blood Count 12.53 4.8-10.8 K/uL Red Blood Count 3.27 4.2-5.4 M/uL Hemoglobin 10.2 12.0-16.0 g/dL Hematocrit 30.7 37-47 % Mean Corpuscular Volume 93.9 80-100 fL Mean Corpuscular Hemoglobin 31.2 25-34 pg Mean Corpuscular Hemoglobin Concent 33.2 32-36 g/dl RDW Standard Deviation 43.2 36.4-46.3 fL RDW Coefficient of Variation 12.7 11.5-14.5 % Platelet Count 217 130-400 K/uL Mean Platelet Volume 9.9 7.4-10.4 fL Sodium Level 138 136-145 mmol/L Potassium Level 3.8 3.5-5.1 mmol/L Chloride Level 105 98-107 mmol/L Carbon Dioxide Level 26 21-32 mmol/L Anion Gap 7.0 3-11 mmol/L Blood Urea Nitrogen 14 7-18 mg/dl Creatinine 0.71 0.60-1.20 mg/dl Est Creatinine Clear Calc Drug Dose 85.1 ml/min Estimated GFR () 95.9 Estimated GFR (Non- 82.7 BUN/Creatinine Ratio 19.1 10-20 Random Glucose 120 70-99 mg/dl Calcium Level 8.5 8.5-10.1 mg/dl Test 11/11/17 11:59 Range/Units Bedside Glucose 102 70-90 mg/dl
[2017-11-11] MEDS ORDERED: HYDROmorphone INJ 0.5 MG/0.5 ML SYR IV PRN (15:30)
[2017-11-11] MEDS: OXYCODONE HCL 15 MG TABCR (OXYCONTIN) PO SCH (20:41)
[2017-11-11 22:53] VITALS: BP 119/71; PULSE 77; TEMP 37.1; O2SAT 94
[2017-11-12] MEDS: OXYCODONE HCL IR 5 MG TAB (IMMEDIATE RELEASE) PO PRN ×4 (01:07→14:31)
[2017-11-12] MEDS: ACETAMINOPHEN 500 MG TAB PO SCH ×2 (05:29→14:32)
[2017-11-12 06:09] LABS: HEMATOCRIT 32.9 % (37-47); HEMOGLOBIN 10.9 g/dL (12.0-16.0); MEAN CELL VOLUME 93.2 fL (80-100); MEAN CORPUSCULAR HEMOGLOBIN 30.9 pg (25-34); MEAN CORPUSCULAR HGB CONC 33.1 g/dl (32-36); MEAN PLATELET VOLUME 9.8 fL (7.4-10.4); PLATELET COUNT 243 K/uL (130-400); RED CELL DISTRIBUTION WIDTH CV 12.6 % (11.5-14.5); RED CELL DISTRIBUTION WIDTH SD 42.9 fL (36.4-46.3); WHITE BLOOD COUNT 11.57 K/uL (4.8-10.8)
[2017-11-12 06:37] LABS: CALCIUM 8.8 mg/dl (8.5-10.1); CREATININE 0.72 mg/dl (0.60-1.20)
[2017-11-12 07:30] VITALS: BP 118/76; PULSE 72; TEMP 36.8; O2SAT 95
[2017-11-12] MEDS: INSULIN ASPART 100 UNITS/ML 3 ML PEN SC SCH ×2 (08:00→12:00)
[2017-11-12] MEDS: DOCUSATE SODIUM 100 MG CAP PO SCH (09:01)
[2017-11-12] MEDS: MULTIVITAMIN TAB PO SCH (09:02)
[2017-11-12] MEDS: ENOXAPARIN 40 MG/0.4 ML SYR SQ SCH (09:02)
[2017-11-12] MEDS: OXYCODONE HCL 15 MG TABCR (OXYCONTIN) PO SCH (10:25)
[2017-11-12 10:31] VITALS: O2SAT 95
[2017-11-12 11:59] VITALS: BP 120/64; PULSE 78; TEMP 36.9; O2SAT 92; O2SAT 96
--- NOTE | 2017-11-12 12:06 | Orthopedic Progress Note ---
Orthopedic Progress Note Date of Service Nov 12, 2017. Subjective Post OP Day: 3 Reports: feeling well, pain controlled w PO medications, Denies: complaints, chest pain, SOB Objective calves soft nontender, N/V intact, capillary refill less than 2 sec., dressing C /D/I, A&O x3, toes mobile Date Time Temp Pulse Resp B/P (MAP) Pulse Ox O2 Delivery O2 Flow Rate FiO2 11/12/17 11:59 36.9 78 16 120/64 (82) 92 Room Air 11/12/17 10:31 95 Room Air 11/12/17 09:19 Room Air 11/12/17 07:30 36.8 72 16 118/76 (90) 95 Room Air 11/11/17 23:20 Room Air 11/11/17 22:53 37.1 77 16 119/71 (87) 94 Room Air 11/11/17 15:40 Room Air 11/11/17 15:12 37.0 78 16 111/64 (80) 93 Room Air Laboratory Results 24 Hours: Test 11/12/17 05:52 Hematocrit 32.9 % Hemoglobin 10.9 g/dL Assessment & Plan Assessment: 77 yo female stable POD #3 Status post ORIF right tibial plateau Plan: -DVT prophylaxis Lovenox 4 weeks -Nonweightbearing right lower extremity -Ice elevation -Postoperative x-ray demonstrates near-anatomic alignment of the articular surface, improvement in fracture positioning, orthopedic implants well aligned and well fixed. -D/C planning- [facility] today. F/U with Dr. Gunderson in 2 weeks at our [facility] office.
--- NOTE | 2017-11-12 12:09 | Consultant Recommendations ---
Body Artist Recommendations Date of Service Nov 12, 2017. Body Artist Recommendations ACTIVITY RECOMMENDATIONS: Limitations: No weight bearing to affected limb at all times. SPECIAL CARE INSTRUCTIONS: * Some drainage onto the dressing is normal and is no cause for alarm. * Some swelling is natural especially after walking. * When resting, keep your foot elevated above the level of your heart. * Call [facility] if you notice: -Increased drainage -Fever over 101 degrees F -Severe constant pain BANDAGE: * Daily dressing changes. * Keep bandage/cast dry at all times. FOLLOW UP VISIT WITH DR. GUNDERSON If appointment is not already scheduled: Please call [facility] after you get home today to schedule a follow-up appointment for [address] Gunderson at .
--- NOTE | 2017-11-12 12:23 | Progress Note ---
Internal Med Progress Note Date of Service: Nov 12, 2017. Provider Documentation: SUBJECTIVE: Seen and examined at bedside No new complaints Right Knee pain is controlled She had dressing change today Denies any chest pain, nausea, dizziness No other complaints OBJECTIVE: Vital Signs-as noted below Physical Exam: General Appearance:Moderately built and nourished, no apparent distress Head: normocephalic, Atraumatic Eyes: normal inspection, EOMI, PERRL Neck: supple, Trachea midline Respiratory/Chest: Normal breath sounds, CTA Cardiovascular: S1, S2, No murmur Abdomen/GI:Soft, Non tender, Bowel sounds present Extremities/Musculoskelatal:normal inspection, no edema, RLE in dressing Neurologic/Psych:AAOX3, grossly no focal neurological deficits Skin: normal color, warm Lab data as noted below. ASSESSMENT & PLAN: Patient is a 77 yr female who presents with mechanical fall and was found to have right Tibial fracture Right displaced comminuted tibial plateau fracture. S/P mechanical Fall S/O ORIF POD # 3 Appreciate Orthopedics help pain control Bowel regimen to prevent constipation Monitor CBC DVT prophylaxis: Lovenox 4 weeks Nonweightbearing right lower extremity Leg elevation Plan to discharge to N today Needs Follow up with with Dr. Gunderson in 2 weeks at our [facility] office. Please call for appointment H/O breast cancer, ovarian cancer S/P lumpectomy and chemo H/O Prediabetes A1C:6.4 Hold metformin Monitor BGs Continue ISS chronic constipation Bowel regimen as needed H/O Pancreatitis s/p cholecystectomy s/p pancreatic stent and removal stable. DVT Px: Lovenox SQ Disposition: Discharge to Rehab placement today Follow up with for routine Care in 1 week after being discharged from Rehab Facility Follow up with your Orthopedic Surgeon in 2 weeks. Please call for appointment Seek immediate medical attention if your symptoms reoccur or worsen Vital Signs: Date Time Temp Pulse Resp B/P (MAP) Pulse Ox O2 Delivery O2 Flow Rate FiO2 11/12/17 11:59 36.9 78 16 120/64 (82) 96 Room Air 11/12/17 10:31 95 Room Air 11/12/17 09:19 Room Air 11/12/17 07:30 36.8 72 16 118/76 (90) 95 Room Air 11/11/17 23:20 Room Air 11/11/17 22:53 37.1 77 16 119/71 (87) 94 Room Air 11/11/17 15:40 Room Air 11/11/17 15:12 37.0 78 16 111/64 (80) 93 Room Air Lab Results: Results Past 24 Hours Test 11/11/17 17:11 11/11/17 20:43 11/12/17 05:52 11/12/17 08:02 Range/Units Bedside Glucose 138 122 132 70-90 mg/dl White Blood Count 11.57 4.8-10.8 K/uL Red Blood Count 3.53 4.2-5.4 M/uL Hemoglobin 10.9 12.0-16.0 g/dL Hematocrit 32.9 37-47 % Mean Corpuscular Volume 93.2 80-100 fL Mean Corpuscular Hemoglobin 30.9 25-34 pg Mean Corpuscular Hemoglobin Concent 33.1 32-36 g/dl RDW Standard Deviation 42.9 36.4-46.3 fL RDW Coefficient of Variation 12.6 11.5-14.5 % Platelet Count 243 130-400 K/uL Mean Platelet Volume 9.8 7.4-10.4 fL Sodium Level 137 136-145 mmol/L Potassium Level 4.0 3.5-5.1 mmol/L Chloride Level 101 98-107 mmol/L Carbon Dioxide Level 28 21-32 mmol/L Anion Gap 7.0 3-11 mmol/L Blood Urea Nitrogen 16 7-18 mg/dl Creatinine 0.72 0.60-1.20 mg/dl Est Creatinine Clear Calc Drug Dose 84.0 ml/min Estimated GFR () 94.3 Estimated GFR (Non- 81.3 BUN/Creatinine Ratio 21.9 10-20 Random Glucose 122 70-99 mg/dl Calcium Level 8.8 8.5-10.1 mg/dl Test 11/12/17 11:59 Range/Units Bedside Glucose 107 70-90 mg/dl
[2017-11-12] MEDS ORDERED: LORA-741 PO (12:27)
[2017-11-12] MEDS ORDERED: CLC100 PO (12:27)
[2017-11-12] MEDS ORDERED: RXC5 PO (12:27)
[2017-11-12] MEDS ORDERED: MRLP17X PO (12:27)
[2017-11-12] MEDS ORDERED: LVNIS40 SQ (12:27)
[2017-11-12] MEDS ORDERED: OXYSR15 PO (12:27)
--- NOTE | 2017-11-12 12:31 | Discharge Summary ---
Discharge Summary Date of Service Nov 12, 2017. Discharge Summary Admission Date: Nov 07, 2017 at 22:15 Discharge Date: Nov 12, 2017 Discharge Disposition: Rehab Principal Diagnosis: Right Tibial plateau fracture Procedures: Right Knee CT: 1. Acute comminuted displaced proximal right tibial fracture with marked depression of the lateral tibial plateau and minimal depression of the medial tibial plateau. 2. Large right knee joint effusion with lipohemarthrosis. CXR: No acute process. Stable postoperative change. Consultations: Orthopedics Pending Studies/Follow-Up: Follow up with for routine Care in 1 week after being discharged from Rehab Facility Follow up with your Orthopedic Surgeon in 2 weeks. Please call for appointment Seek immediate medical attention if your symptoms reoccur or worsen Medication Reconciliation New Medications: Docusate Sodium (Docusate Sodium) 100 Mg Cap 100 MG PO BID for 30 Days, #60 CAP Enoxaparin (Enoxaparin Sodium) 40 Mg/0.4 Ml Inj 40 MG SQ Q24H for 30 Days Oxycodone HCl (Oxycontin) 15 Mg Tabcr 15 MG PO Q12 for 3 Days, #6 EA Oxycodone HCl (Oxycodone HCl) 5 Mg Tab 5 MG PO Q6H PRN for Pain for 3 Days, #12 TAB Polyethylene (Miralax) 17 Gm Pow 17 GM PO DAILY PRN for Constipation for 30 Days, #30 EA Continued Medications: Albuterol Hfa (Ventolin Hfa) 200 Puffs/93001 Mcg Aers 2 PUFFS INH Q6H PRN for SOB/Wheezing, #1 INHALER Artificial Tear Solution (Artificial Tears) 1 Khushi Khushi 1 DROPS OP QID PRN for DRYNESS, #15 ML 5 Refills Ascorbic Acid (Ascorbic Acid) 500 Mg Tab 500 MG PO DAILY, #30 TAB Fewlzwu-Zyoevhmjzraqo-Zslmxxmp (Excedrin Extra Strength) 1 Tab Tab 2 TAB PO DAILY PRN for Pain B-Complex W/ Folic Acid (B Complex) 1 Tab Tab 1 TAB PO DAILY, #30 Cholecalciferol (Vitamin D3) 2,000 Unit Cap 2 CAP PO DAILY for 30 Days, #60 CAP 3 Refills Lorazepam (Ativan) 0.5 Mg Tab 0.5 MG PO TID PRN for Anxiety/Insomnia, #6 TAB (This prescription has been renewed) Metformin Hcl (Glucophage) 500 Mg Tab 500 MG PO BID, #30 TAB Methylcobalamin (B-12 Fast Dissolve) 5,000 Mcg Sub 2500 MCG SL DAILY, #20 Multiple Vitamins W/ Minerals (Multi Vitamin and Mineral) 1 Tab Tab 1 TAB PO DAILY, #30 Ondansetron Hcl (Zofran) 4 Mg Tab 4 MG PO Q6 PRN for Nausea, TAB Probiotic Product (Probiotic) 1 Tab Tab 1 TAB PO DAILY, #30 Admission Information HPI (per Admitting provider): CHIEF COMPLAINT: Status post fall and right patellar fracture. HISTORY OF PRESENT ILLNESS: This is a 77-year-old female with past medical history significant breast cancer, osteoporosis, history of ovarian cancer, peripheral neuropathy, hyperlipidemia, chronic constipation, hiatal hernia with GERD, idiopathic gastric motility disorder, nontoxic multinodular goiter, prediabetes, and recurrent pancreatitis status post cholecystectomy, presents with fall. The patient was in the basement and trying to shut the door when shoe stuck in the door and she fell 5-6 steps down with falling down on her right knee and hit her head. No loss of consciousness. Had lot of pain. Couldn't get up. She was brought in here and x-ray shows right patellar fracture and she feels a lot of pain on movement of the right lower extremity. Otherwise, She was active and denies any other complaints. No headaches, no dizziness, no earache, no sore throat. Occasional cough. No shortness of breath. No difficulty swallowing. No chest pain, no nausea, no vomiting, no abdominal pain. Appetite is okay. She has issues with bowels with idiopathic gastric motility disorder but they are doing ok now. No blood in the stools. Normal bladder movements. No feeling of hot or cold. No significant weight loss or weight gain. Currently, seems to be in pain but hemodynamically stable. Physical Exam (per Admitting): PHYSICAL EXAMINATION: GENERAL: The patient is of moderate build, not in distress. VITAL SIGNS: Temperature 36.8, pulse 67, respiratory 18 , oxygen 98% room air. HEENT: No pallor, no icterus. Pupils equal, round, and reactive. NECK: No JVD. No neck masses, no carotid bruits. CARDIOVASCULAR: S1, S2, regular rate and rhythm, no murmur, no gallop. RESPIRATORY: Normal AP diameter. No accessory muscle use. No wheezing, no crackles. ABDOMEN: Soft, bowel sounds present. Nontender. No distention. CENTRAL NERVOUS SYSTEM: nonfocal. EXTREMITIES: Right knee is swollen and tender . right lower extremity is painful on movement. No erythema seen. Hospital Course Patient is a 77 yr female who presents with mechanical fall and was found to have right Tibial fracture Right displaced comminuted tibial plateau fracture. S/P mechanical Fall S/O ORIF POD # 3 Appreciate Orthopedics help pain control Bowel regimen to prevent constipation Monitor CBC DVT prophylaxis: Lovenox 4 weeks Nonweightbearing right lower extremity Leg elevation Plan to discharge to N today Needs Follow up with with Dr. Gunderson in 2 weeks at our [facility] office. Please call for appointment H/O breast cancer, ovarian cancer S/P lumpectomy and chemo H/O Prediabetes A1C:6.4 Hold metformin Monitor BGs Continue ISS chronic constipation Bowel regimen as needed H/O Pancreatitis s/p cholecystectomy s/p pancreatic stent and removal stable. DVT Px: Lovenox SQ Disposition: Discharge to Rehab placement today Follow up with for routine Care in 1 week after being discharged from Rehab Facility Follow up with your Orthopedic Surgeon in 2 weeks. Please call for appointment Seek immediate medical attention if your symptoms reoccur or worsen Total time spent on discharge = 40 minutes This includes examination of the patient, discharge planning, medication reconciliation, and communication with other providers. Discharge Instructions Discharge Instructions Date of Service Nov 12, 2017. Admission Reason for Admission: Ambulatory Dysfunction, Right Patella Fracture Discharge Discharge Diagnosis / Problem: Right Tibial plateau fracture Discharge Goals Goal(s): Decrease discomfort, Improve function Activity Recommendations Activity Limitations: per Instructions/Follow-up section Lifting Limitations: gradually increase as tolerated Exercise/Sports Limitations: gradually increase as tolerated . Instructions / Follow-Up Instructions / Follow-Up Follow up with for routine Care in 1 week after being discharged from Rehab Facility Follow up with your Orthopedic Surgeon in 2 weeks. Please call for appointment Seek immediate medical attention if your symptoms reoccur or worsen Current Hospital Diet Patient's current hospital diet: AHA Diet (Heart Healthy), Diabetes Type 2 Diet Discharge Diet Recommended Diet: AHA Diet (Heart Healthy), Diabetes Type 2 Diet Procedures Procedures Performed: Open Reduction Internal Fixation Right Tibial Plateau Fracture, cancellous bone chips and DBX Pending Studies Studies pending at discharge: no Laboratory Results Hemoglobin A1c Test 11/08/17 05:20 Range/Units Estimated Average Glucose 137 mg/dl Hemoglobin A1c 6.4 H 4.5-5.6 % Medical Emergencies . Who to Call and When: Medical Emergencies: If at any time you feel your situation is an emergency, please call 911 immediately. . Non-Emergent Contact Non-Emergency issues call your: Primary Care Provider, Surgeon Call Non-Emergent contact if: you have a fever, your pain is not controlled, your pain is worsening, your pain is unusual for you, your pain is concerning you, wound has increased drainage, wound has increased redness, wound has increased pain, you have any medication questions . . "Provider Documentation" section prepared by Stevo Leslie. . Parks Recreation Director Recommendations Parks Recreation Director Recommendations: ACTIVITY RECOMMENDATIONS: Limitations: No weight bearing to affected limb at all times. SPECIAL CARE INSTRUCTIONS: * Some drainage onto the dressing is normal and is no cause for alarm. * Some swelling is natural especially after walking. * When resting, keep your foot elevated above the level of your heart. * Call [facility] if you notice: -Increased drainage -Fever over 101 degrees F -Severe constant pain BANDAGE: * Daily dressing changes. * Keep bandage/cast dry at all times. FOLLOW UP VISIT WITH DR. GUNDERSON If appointment is not already scheduled: Please call [facility] after you get home today to schedule a follow-up appointment for [address] Gunderson at . <Electronically signed by Stevo Leslie MD> Signed: 11/12/17 1230 Signed: The status of this report is Signed * If report status is Draft, the document has not been finalized by the responsible provider.
[2017-11-12 14:36] VITALS: BP 120/64; PULSE 78; TEMP 36.9; O2SAT 96
== END 2017-11-12 15:00 | DRG 494 ==
LOC: EDBD 19:13 → C.EDC 19:14 → C.MSN 22:15 → ENRESERV 22:26 → C.MSN 11-09 17:54
PROVIDERS: ADMIT Internal Medicine; ATTEND Internal Medicine
PROC: 0QSG04Z Reposition Right Tibia with Internal Fixation Device, Open Approach (ICD-10-PCS; principal; 2017-11-09 09:00)
DX: S82.101A Unspecified fracture of upper end of right tibia, initial encounter for closed fracture (principal); M81.0 Age-related osteoporosis without current pathological fracture; K21.9 Gastro-esophageal reflux disease without esophagitis; K58.9 Irritable bowel syndrome, unspecified; J45.909 Unspecified asthma, uncomplicated; I70.0 Atherosclerosis of aorta; Y92.018 Other place in single-family (private) house as the place of occurrence of the external cause; W10.9XXA Fall (on) (from) unspecified stairs and steps, initial encounter; K31.84 Gastroparesis; Z85.43 Personal history of malignant neoplasm of ovary; Z83.3 Family history of diabetes mellitus; Z88.8 Allergy status to other drugs, medicaments and biological substances; Z88.5 Allergy status to narcotic agent; Z85.3 Personal history of malignant neoplasm of breast; G62.9 Polyneuropathy, unspecified; Z80.1 Family history of malignant neoplasm of trachea, bronchus and lung; Z82.49 Family history of ischemic heart disease and other diseases of the circulatory system; Z80.3 Family history of malignant neoplasm of breast; K59.00 Constipation, unspecified; R73.03 Prediabetes

== ENCOUNTER 2020-07-21 10:59 | Inpatient (IN) ==
[2020-07-21] MEDS ORDERED: SODIUM CHLORIDE 0.9% 1000ML 500 ML IV ONE (11:48)
[2020-07-21] MEDS ORDERED: ONDANSETRON INJ 2 MG/ML 2 ML VIAL IV STA (11:48)
[2020-07-21] MEDS ORDERED: fentaNYL citrate 100 MCG/2 ML VIAL IV STA (11:48)
--- NOTE | 2020-07-21 12:16 | XRay Report ---
KUB CLINICAL HISTORY: Diverticulitis COMPARISON STUDY: CT of the abdomen and pelvis July 21, 2020 at 4:51 AM. FINDINGS: There is contrast within the collecting systems and bladder from recent contrast-enhanced C T. Cholecystectomy clips are noted. Bowel gas pattern is normal. Sensitivity for detection of free ai r is diminished on this supine exam but there is no evidence for free air. IMPRESSION: 1. No evidence for a bowel obstruction. 2. No evidence for free air although sensitivity diminished on this supine exam. ACT 112: Negative or not required by law. Electronically signed by: Doyle Vance M.D. 07/21/2020 12:14 PM
[2020-07-21 12:21] LABS: Basophils # (auto) 0.02 K/uL (0-0.2); Basophils % (auto) 0.1 %; Eosinophils # (auto) 0.11 K/uL (0-0.5); Eosinophils % (auto) 0.8 %; Hematocrit (blood only) 38.8 % (37-47); Hemoglobin 13.1 g/dL (12.0-16.0); Immature Granulocytes # (auto) 0.03 K/uL (0.00-0.02); Immature Granulocytes % (auto) 0.2 %; Lymphocytes # (auto) 0.72 K/uL (1.2-3.4); Mean Corpuscular Hemoglobin 31.4 pg (25-34); Mean Corpuscular Hgb Conc 33.8 g/dL (32-36); Mean Platelet Volume 10.3 fL (7.4-10.4); Monocytes # (auto) 1.73 K/uL (0.11-0.59); Monocytes % (auto) 12.1 %; Neutrophils # (auto) 11.66 K/uL (1.4-6.5); Neutrophils % (auto) 81.8 %; Platelet Count 246 K/uL (130-400); RDW Coefficient of Variation 13.1 % (11.5-14.5); RDW Standard Deviation 44.8 fL (36.4-46.3); Red Blood Count 4.17 M/uL (4.2-5.4); White Blood Count 14.27 K/uL (4.8-10.8)
--- NOTE | 2020-07-21 12:22 | Emergency Department Note ---
History of Present Illness General Chief complaint: Abdominal Pain Stated complaint: VOMITING AB PAIN History of Present Illness Maximum Pain Intensity: 10 This patient is a pleasant 79-year-old female who presents emergency department ambulatory for evaluation of worsening abdominal pain and vomiting that started 3 days ago. The patient was seen in the emergency department a few hours ago. A full work-up was performed. A CAT scan was done. She was diagnosed with diverticulitis. She was sent home with Zofran and Augmentin. Unfortunately, the patient is having difficulty keeping down fluids, and the pain has gotten worse. She also reports a "fever" of 99.4 F. She has not taken anything at home for her pain. She has had several bowel movements. She denies any blood in her stool. Home Medications Medication Instructions Recorded Confirmed Type albuterol sulfate [Ventolin HFA] 2 puff INHALATION Q6H PRN 01/30/19 07/21/20 History cholecalciferol (vitamin D3) 2,000 unit PO QAM 01/30/19 07/21/20 History [Vitamin D3] cyanocobalamin (vitamin B-12) 2,500 mcg SUBLINGUAL WK 01/30/19 07/21/20 History [Vitamin B-12] ondansetron HCl 4 mg PO Q6H PRN 01/30/19 07/21/20 History polyethylene glycol 3350 [Miralax] 17 g PO DAILY PRN 01/30/19 07/21/20 History vitamin B complex 1 tab PO QAM 01/30/19 07/21/20 History ascorbate calcium (vitamin C) 500 1 gm PO BID tab 05/31/19 07/21/20 History mg tablet aspirin 325 mg tablet 325 mg PO DAILY PRN 05/31/19 07/21/20 History biotin 2,500 mcg capsule 2,500 mcg PO QAM 05/31/19 07/21/20 History bisacodyl 5 mg tablet 5 mg PO HS PRN 05/31/19 07/21/20 History Anders's Yeast 680 mg PO QAM 10/19/19 07/21/20 History Collagen Plus Vitamin C 1 cap PO DAILY 10/19/19 07/21/20 History Saccharomyces boulardii [Probiotic 250 mg PO HS 10/19/19 07/21/20 History (S.boulardii)] Triboron 1 tab PO QAM 10/19/19 07/21/20 History coQ10 (ubiquinol) 200 mg PO QAM 10/19/19 07/21/20 History cod liver oil 15 ml PO 3XWK 10/19/19 07/21/20 History folic acid 0.8 mg PO QAM 10/19/19 07/21/20 History magnesium oxide 400 mg PO HS 10/19/19 07/21/20 History melatonin 1 mg PO HS 10/19/19 07/21/20 History milk thistle 500 mg PO QAM 10/19/19 07/21/20 History riboflavin (vitamin B2) [Vitamin 100 mg PO DAILY PRN 10/19/19 07/21/20 History B-2] selenium 200 mcg PO QAM 10/19/19 07/21/20 History vitamin K2 40 mcg PO QAM 10/19/19 07/21/20 History zinc 50 mg PO QAM 10/19/19 07/21/20 History omeprazole 20 mg-sodium 1 cap PO DAILY 12/12/19 07/21/20 History bicarbonate 1.1 gram capsule amoxicillin-pot clavulanate 1 tab PO BID #14 tab 07/21/20 07/21/20 Rx [Augmentin] azelastine 1 spray INTRANASAL BID 07/21/20 07/21/20 History [id number]-[id number] [Creon] 1 cap PO TIDM 07/21/20 07/21/20 History metformin 500 mg PO DAILY 07/21/20 07/21/20 History sucralfate 1 g PO ACHS PRN 07/21/20 07/21/20 History Allergies Allergy/AdvReac Type Severity Reaction Status Date / Time Proton Pump Inhibitors Allergy Severe Chest Pain Verified 01/22/20 13:20 cimetidine Allergy Intermediate dizziness Verified 01/22/20 13:20 alendronate sodium Allergy Unknown Verified 01/22/20 13:20 [From Fosamax] carbamazepine AdvReac Severe pancreatiti Verified 01/22/20 13:20 s morphine AdvReac Intermediate SEVERE PAIN Verified 01/22/20 13:20 prednisone AdvReac Intermediate "I heard Verified 01/22/20 13:20 voices and I felt crappy". Rtvyokq-Pla-Rxy Reductase AdvReac Intermediate MUSCLE Verified 01/22/20 13:20 Inhibitor WEAKNESS tramadol AdvReac Intermediate SOB, CHEST Verified 01/22/20 13:20 PAIN epinephrine AdvReac Mild DIZZINESS Verified 01/22/20 13:20 Ibandronic Acid AdvReac Mild GERD Uncoded 01/22/20 13:20 Past Med/Surg History Medical History Actinic keratosis Anxiety Chemotherapy-induced neuropathy Degenerative disc disease Dysplastic nevus GERD (gastroesophageal reflux disease) History of left breast cancer 1991--sx/chemo/radiation History of ovarian cancer diagnosed 1991--pt states it was "a 00 rating"--found after hysterectomy 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) Pancreatitis Prediabetes T2DM (type 2 diabetes mellitus) Surgical History H/O oophorectomy History of appendectomy History of basal cell carcinoma back, face tx with ulloa 2000 History of bilateral breast reduction surgery History of bilateral cataract extraction History of blepharoplasty bilt eyes, upper and lower History of breast biopsy malignant History of cholecystectomy History of colonoscopy History of dilatation and curettage History of ERCP History of hysterectomy d/t fibroids History of open reduction and internal fixation (ORIF) procedure right tibia fx--hardware in place History of open reduction and internal fixation (ORIF) procedure left wrist--hardware removed History of oral surgery gum sx History of parathyroidectomy right side--benign tumor History of root canal procedure History of thumb surgery right, tissue repair History of tonsillectomy and adenoidectomy History of wisdom tooth extraction Melanoma stage 1A, negative SLN right upper back 1999 stage 1A 0.2 mm superficial spreading ? location [address] Dr. Toro Family History Mother Family history of diabetes mellitus Family hx colonic polyps Hearing loss Hypertension Stroke Heart disease Allergies Sister Family history of diabetes mellitus Family hx colonic polyps Hypertension Cancer Heart disease Allergies Brother Cancer Other No family history of adverse response to anesthesia No family history of bleeding disorder No significant family history Denies family history of Asthma Social History Smoking Status: Never smoker Second Hand Exposure: No; Hx Alcohol Use: No Hx Substance Use: No Preferred Language: Hebrew Communication Ability: Effective Brand Analyst Required: No Beliefs That Will Affect Care: None Current Living Situation: Spouse 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 Safe at Home: Yes Assistive Devices: Glasses Review of Systems A total of 10 systems reviewed and were otherwise negative Physical Exam Vital Signs Vital Signs - 24 hr 07/21/20 11:24 Temperature 36.6 C Temperature Source Oral Pulse Rate 85 Respiratory Rate 18 Blood Pressure 114/66 Blood Pressure Mean 82 Pulse Oximetry 97 Oxygen Delivery Method Room Air Sepsis Recent Fever Within 48 Hours Yes Sepsis New/Unexplained Change in Mental Status No Sepsis Action Taken by Nursing No Action Required Constitutional WD/WN, vitals as above Eyes EOM intact bilaterally ENMT external ear and nose normal, oropharynx normal Neck trachea midline Respiratory normal respiratory effort, lungs clear to auscultation Cardiovascular RRR, no murmur, no edema Gastrointestinal (Abdomen) Bowel sounds hypoactive. Mild diffuse tenderness noted. No rigidity. No rebound tenderness. Musculoskeletal no cyanosis or clubbing, extremities motor strength 5/5 Skin no rashes, warm and dry Neurologic Alert and oriented x3. No focal motor deficits. Psychiatric Acting appropriately Course Course Patient was seen and examined Vital signs including blood pressure were reviewed medications list was verified with patient Labs were obtained, and a saline lock was established Patient was ordered pain medication, nausea medication and fluids Upon reevaluation, the patient was still in pain and nauseated. Discussed her results of blood work and x-rays. We also discussed disposition. She was comfortable with possible inpatient management. The case was discussed with the [facility] hospitalist group. They agreed to evaluate the patient for likely inpatient management. She remained stable in the emergency department. Administered Medications Enoxaparin Sodium (Enoxaparin Inj 40 Mg/0.4 Ml Syr) 40 mg SQ Q24H [facility] Stop: 08/20/20 21:59 Last Admin: 07/22/20 22:32 Dose: 40 mg Documented by: [id number] Admin: 07/21/20 21:21 Dose: 40 mg Documented by: [id number] Hydromorphone HCl (Hydromorphone Inj 0.5 Mg/0.5 Ml Syr) 0.25 mg IV Q6H PRN PRN Reason: severe pain Stop: 08/04/20 16:14 Last Admin: 07/23/20 00:13 Dose: 0.25 mg Documented by: [id number] Lactated Ringer's (Lr) 1,000 mls @ 100 mls/hr IV .Q10H [facility] Stop: 08/20/20 13:59 Last Admin: 07/23/20 15:04 Dose: 100 mls/hr Documented by: [id number] Infusion: 07/23/20 14:41 Dose: 100 mls/hr Documented by: [id number] Admin: 07/23/20 04:41 Dose: 100 mls/hr Documented by: [id number] Infusion: 07/23/20 04:41 Dose: 100 mls/hr Documented by: [id number] Admin: 07/22/20 19:33 Dose: 100 mls/hr Documented by: [id number] Infusion: 07/22/20 19:33 Dose: 100 mls/hr Documented by: [id number] Admin: 07/22/20 09:43 Dose: 100 mls/hr Documented by: [id number] Infusion: 07/22/20 09:43 Dose: 100 mls/hr Documented by: [id number] Admin: 07/22/20 00:17 Dose: 100 mls/hr Documented by: [id number] Infusion: 07/22/20 00:17 Dose: 100 mls/hr Documented by: [id number] Admin: 07/21/20 15:33 Dose: 100 mls/hr Documented by: [id number] Acetaminophen (Ofirmev) 1,000 mg in 100 mls @ 400 mls/hr IV Q8H [facility] Stop: 07/24/20 22:59 Last Infusion: 07/23/20 15:20 Dose: 0 mls/hr Documented by: [id number] Admin: 07/23/20 15:05 Dose: 400 mls/hr Documented by: [id number] Infusion: 07/23/20 07:58 Dose: 0 mls/hr Documented by: [id number] Admin: 07/23/20 07:39 Dose: 400 mls/hr Documented by: [id number] Infusion: 07/22/20 22:55 Dose: 0 mls/hr Documented by: [id number] Admin: 07/22/20 22:32 Dose: 400 mls/hr Documented by: [id number] Infusion: 07/22/20 15:08 Dose: 0 mls/hr Documented by: [id number] Admin: 07/22/20 14:40 Dose: 400 mls/hr Documented by: [id number] Infusion: 07/22/20 06:13 Dose: 0 mls/hr Documented by: [id number] Admin: 07/22/20 05:57 Dose: 400 mls/hr Documented by: [id number] Infusion: 07/21/20 23:21 Dose: 0 mls/hr Documented by: [id number] Admin: 07/21/20 22:49 Dose: 400 mls/hr Documented by: [id number] Piperacillin Sod/Tazobactam (Sod 3.375 gm/ Dextrose) 115 mls @ 28.75 mls/hr IV Q8H [facility]; Protocol Stop: 07/31/20 19:59 Last Admin: 07/23/20 12:48 Dose: 28.8 mls/hr Documented by: [id number] Infusion: 07/23/20 09:30 Dose: 0 mls/hr Documented by: [id number] Admin: 07/23/20 04:41 Dose: 28.8 mls/hr Documented by: [id number] Infusion: 07/23/20 00:50 Dose: 0 mls/hr Documented by: [id number] Admin: 07/22/20 20:49 Dose: 28.8 mls/hr Documented by: [id number] Infusion: 07/22/20 15:42 Dose: 0 mls/hr Documented by: [id number] Admin: 07/22/20 11:42 Dose: 28.8 mls/hr Documented by: [id number] Infusion: 07/22/20 07:41 Dose: 0 mls/hr Documented by: [id number] Admin: 07/22/20 03:41 Dose: 28.8 mls/hr Documented by: [id number] Infusion: 07/22/20 00:17 Dose: 0 mls/hr Documented by: [id number] Admin: 07/21/20 20:03 Dose: 28.8 mls/hr Documented by: [id number] Ondansetron HCl (Ondansetron Inj 2 Mg/Ml 2 Ml Vial) 4 mg IV Q6H PRN PRN Reason: Nausea Stop: 08/20/20 16:14 Last Admin: 07/23/20 00:13 Dose: 4 mg Documented by: [id number] Admin: 07/21/20 21:31 Dose: 4 mg Documented by: [id number] Pantoprazole Sodium (Pantoprazole 40 Mg Tab) 40 mg PO DAILY [facility] Stop: 08/21/20 08:59 Last Admin: 07/23/20 07:51 Dose: 40 mg Documented by: [id number] Admin: 07/22/20 07:56 Dose: 40 mg Documented by: [id number] Sodium Bicarbonate (Sodium Bicarbonate 650 Mg Tab) 650 mg PO QAM [facility] Stop: 08/21/20 08:59 Last Admin: 07/23/20 07:51 Dose: 650 mg Documented by: [id number] Admin: 07/22/20 07:56 Dose: 650 mg Documented by: [id number] Discontinued Medications Fentanyl Citrate (Fentanyl Citrate 100 Mcg/2 Ml Vial) 50 mcg IV NOW STA Stop: 07/21/20 11:49 Last Admin: 07/21/20 12:19 Dose: 50 mcg Documented by: [id number] Sodium Chloride (Nss 1000ml) 500 mls @ 999 mls/hr IV .Q31M ONE Stop: 07/21/20 12:18 Last Infusion: 07/21/20 12:49 Dose: 0 mls/hr Documented by: [id number] Admin: 07/21/20 12:18 Dose: 999 mls/hr Documented by: [id number] Piperacillin Sod/Tazobactam Sod (Zosyn) 4.5 gm in 120 mls @ 240 mls/hr IV NOW ONE Stop: 07/21/20 14:24 Last Infusion: 07/21/20 15:30 Dose: 0 mls/hr Documented by: [id number] Admin: 07/21/20 14:57 Dose: 240 mls/hr Documented by: [id number] Acetaminophen (Ofirmev) 1,000 mg in 100 mls @ 400 mls/hr IV NOW STA Stop: 07/21/20 14:39 Last Infusion: 07/21/20 15:12 Dose: 0 mls/hr Documented by: [id number] Admin: 07/21/20 14:57 Dose: 400 mls/hr Documented by: [id number] Ondansetron HCl (Ondansetron Inj 2 Mg/Ml 2 Ml Vial) 4 mg IV NOW STA Stop: 07/21/20 11:49 Last Admin: 07/21/20 12:19 Dose: 4 mg Documented by: [id number] Medical Decision Making Medical Records Attestation: I reviewed the patient's medical records. Home Medications Current Medication List: was personally reviewed by me Laboratory Data Attestation: I reviewed the patient's lab results. Result diagrams: 07/22/20 05:50 07/22/20 05:50 Lab Results 07/21/20 07/21/20 07/21/20 Range/Units 12:08 12:08 13:49 WBC 14.27 H (4.8-10.8) K/uL RBC 4.17 L (4.2-5.4) M/uL Hgb 13.1 (12.0-16.0) g/dL Hct 38.8 (37-47) % MCV 93.0 (80-100) fL MCH 31.4 (25-34) pg MCHC 33.8 (32-36) g/dL RDW Std Deviation 44.8 (36.4-46.3) fL RDW Coeff of Mack 13.1 (11.5-14.5) % Plt Count 246 (130-400) K/uL MPV 10.3 (7.4-10.4) fL Immature Gran % (Auto) 0.2 % Neut % (Auto) 81.8 % Lymph % (Auto) 5.0 % [place] % (Auto) 12.1 % Eos % (Auto) 0.8 % Baso % (Auto) 0.1 % Neut # (Auto) 11.66 H (1.4-6.5) K/uL Lymph # (Auto) 0.72 L (1.2-3.4) K/uL [place] # (Auto) 1.73 H (0.11-0.59) K/uL Eos # (Auto) 0.11 (0-0.5) K/uL Baso # (Auto) 0.02 (0-0.2) K/uL Immature Gran # (Auto) 0.03 H (0.00-0.02) K/uL Sodium 140 (136-145) mmol/L Potassium 3.9 (3.5-5.1) mmol/L Chloride 107 (98-107) mmol/L Carbon Dioxide 28 (21-32) mmol/L Anion Gap 5.0 (3-11) BUN 20 H (7-18) mg/dl Creatinine 0.77 (0.6-1.2) mg/dl Est Cr Clr Drug Dosing 76.0 ml/min Est GFR ( Amer) 85.7 Est GFR (Non-Af Amer) 74.0 BUN/Creatinine Ratio 26.1 H (10-20) Glucose 146 H (70-99) mg/dl Calcium 8.8 (8.5-10.1) mg/dl COVID-19 Eval Order [facility]FluRsv at [facility] SARS-CoV-2 (PCR) (Negative) Influenza Type A (PCR) (Neg) Influenza Type B (PCR) (Neg) RSV (RT-PCR) (Neg) 07/21/20 Range/Units 13:49 WBC (4.8-10.8) K/uL RBC (4.2-5.4) M/uL Hgb (12.0-16.0) g/dL Hct (37-47) % MCV (80-100) fL MCH (25-34) pg MCHC (32-36) g/dL RDW Std Deviation (36.4-46.3) fL RDW Coeff of Mack (11.5-14.5) % Plt Count (130-400) K/uL MPV (7.4-10.4) fL Immature Gran % (Auto) % Neut % (Auto) % Lymph % (Auto) % [place] % (Auto) % Eos % (Auto) % Baso % (Auto) % Neut # (Auto) (1.4-6.5) K/uL Lymph # (Auto) (1.2-3.4) K/uL [place] # (Auto) (0.11-0.59) K/uL Eos # (Auto) (0-0.5) K/uL Baso # (Auto) (0-0.2) K/uL Immature Gran # (Auto) (0.00-0.02) K/uL Sodium (136-145) mmol/L Potassium (3.5-5.1) mmol/L Chloride (98-107) mmol/L Carbon Dioxide (21-32) mmol/L Anion Gap (3-11) BUN (7-18) mg/dl Creatinine (0.6-1.2) mg/dl Est Cr Clr Drug Dosing ml/min Est GFR ( Amer) Est GFR (Non-Af Amer) BUN/Creatinine Ratio (10-20) Glucose (70-99) mg/dl Calcium (8.5-10.1) mg/dl COVID-19 Eval Order SARS-CoV-2 (PCR) NEGATIVE (Negative) Influenza Type A (PCR) Negative (Neg) Influenza Type B (PCR) Negative (Neg) RSV (RT-PCR) Negative (Neg) Imaging Data Attestation: I personally reviewed and interpreted this imaging study as follows: Radiologist's Impression: X-ray KUB . No evidence for a bowel obstruction. 2. No evidence for free air although sensitivity diminished on this supine exam. ACT 112: Negative or not required by law. Electronically signed by: Doyle Vance M.D. 07/21/2020 12:14 PM Dictated: 07/21/20 1213Transcribed: 07/21/20 1213 Blood Pressure Blood Pressure Findings: Normal blood pressure MDM Narrative Differential diagnosis: Diverticulitis, perforation, sepsis, bowel obstruction, among others were considered This patient is a 79-year-old female that returns to the emergency department complaining of ongoing abdominal pain, nausea and vomiting. She was seen in the emergency department earlier this morning and diagnosed with diverticulitis. She was sent home with an antiemetic in addition to an antibiotic, which she has not been able to tolerate by mouth. On exam, she was afebrile. Her abdomen is not rigid, but tender diffusely. There is mild leukocytosis. Otherwise, labs are stable. KUB did not show any signs of free air. Unfortunately, despite antiemetics, fluids and pain medication, she remained unable to tolerate fluids and her pain returned. For this reason, I felt that it was appropriate to have her evaluated by the hospitalist for possible inpatient admission. She was in agreement. She remained stable in the emergency department. Impression & Plan Diverticulitis Discharge Plan Visit Data Chief Complaint: Abdominal Pain Stated Complaint: VOMITING AB PAIN ED Provider: Ernesto Hong ED Midlevel Provider: Emmie Mendes Discharge Problem: Diverticulitis Patient Disposition: Admitted As Inpatient Discharge Instructions Interventions: ED Discharge Assessment Last Done: 07/21/20 15:57 Addendum (Blank) Addendum July 23, 2020 15:47 HPI: The patient is a pleasant 79 y/o woman who presents to the emergency department with persistent abdominal pain and n/v with inability to tolerate oral intake after being seeing in the ED last night with diagnosis of uncomplicated diverticulitis on CT. PE: AFVSS, NAD NC/AT RRR, no murmurs CTAB Abd soft. Mild LLQ tenderness without guarding or rebound. Neuro: grossly intact Plan: WBC improved form 16 to 14K. KUB without free air. Admit. IV ABX per ad mitting team. I reviewed the patient's past medical history, medications, and visit nursing notes. I discussed the case with the physician blacksmith assistant, examined the patient, and agree with the findings and plan as documented in PAC Urban's note.
[2020-07-21 12:38] LABS: BUN Creatinine Ratio 26.1 (10-20); Calcium 8.8 mg/dl (8.5-10.1); Est GFR (African American) 85.7; Potassium 3.9 mmol/L (3.5-5.1)
[2020-07-21] MEDS ORDERED: PIPERACILLIN/TAZOBACTAM 4.5 GM/120 ML BAG IV ONE (13:55)
[2020-07-21] MEDS ORDERED: PIPERACILL/TAZOBAC CONSULT ACTIVE PRN ×2 (13:55→16:15)
--- NOTE | 2020-07-21 13:58 | History & Physical Report ---
Date of Service July 21, 2020 Assessment & Plan (1) Acute diverticulitis: (2) Abdominal pain: This is a 79 year old F who has significant PMH of T2DM, HLD, polyneuropathy, chronic constipation, GERD, Osteoporosis, hx of pancreatitis, hx of breast and ovarian cancer who presents to ED 2/2 to abdominal pain x 2 day. Acute sigmoid diverticulitis, failed outpt treatment admit to med/surg IV zosyn NPO except sips/chips/essential meds LR @ 100cc/hr IV APAP scheduled prn oxycodone moderate pain, IV dilaudid severe pain consult general surgery recommend follow up Dr. Figueroa GI as oupt - last cscope 10/2019 mild sigmoid diverticulosis, internal hemorrhoids, bx normal, IBS (3) T2DM (type 2 diabetes mellitus): last a1c 6.6 on 10/2019 obtain a1c in a.m. hold metformin accuchecks q6h while npo monitor bsg if consistently elevated add insulin (4) GERD (gastroesophageal reflux disease): continue PPI, prn carafate Hx of breast ca/ovarian ca/melanoma in remission Hx of recurrent pancreatitis pt is on creon w/ meals hold for now, when able to tolerate PO resume (5) DVT prophylaxis: SQ Lovenox Dispo:med/surg PCP: Dr. Morelos FULL CODE History of Present Illness Chief Complaint: Abdominal pain x 2 days. Primary Care Provider: Dr. Morelos This is a 79 year old F who has significant PMH of T2DM, HLD, polyneuropathy, chronic constipation, GERD, Osteoporosis, hx of pancreatitis, hx of breast and ovarian cancer who presents to ED 2/2 to abdominal pain x 2 days. She was seen and examined in ED nahid this morning and dx with acute diverticulitis, pain controlled and given oral antibiotics, augmentin. She has first dose this morning. She went home, slept, woke up and pain returned, had nausea, vomiting and diarrhea. Given sx she returned back to ED. Sx started initially 2 days ago. She has been constipated and follows GI Dr. Figueroa for that. She intermittently gets constipation. She did have elevated temp of 99.8 yesterday and chills this morning. She has hx of diverticulitis one year ago and did not require hospitalization. Pain currently b/l lower abdomen, constant, worse with movement and touch, better with rest and feels like, "burn." "Feels like i'm sitting on a corn cob when I sit down. She denies dizziness, lightheaded, syncope, chest pain, sob, cough, uri sx, dysuria, increased urg/freq with urination. Overall poor appetite and inability to tolerate anything oral. Last colonoscopy 2019. Of significance recent ingrown toe nail in which she was on 2 antibiotics keflex/bactrim. This has since resolved. In ED she was hemodynamically stable, no signs of sirs/sepsis. CT a/p done early this a.m. revealed acute sigmoid diverticulitis. KUB this afternoon shows no free air. She does have leukocytosis, 14.27k. Allergies Allergy/AdvReac Type Severity Reaction Status Date / Time Proton Pump Inhibitors Allergy Severe Chest Pain Verified 01/22/20 13:20 cimetidine Allergy Intermediate dizziness Verified 01/22/20 13:20 alendronate sodium Allergy Unknown Verified 01/22/20 13:20 [From Fosamax] carbamazepine AdvReac Severe pancreatiti Verified 01/22/20 13:20 s morphine AdvReac Intermediate SEVERE PAIN Verified 01/22/20 13:20 prednisone AdvReac Intermediate "I heard Verified 01/22/20 13:20 voices and I felt crappy". Jlubkas-Jjb-Xim Reductase AdvReac Intermediate MUSCLE Verified 01/22/20 13:20 Inhibitor WEAKNESS tramadol AdvReac Intermediate SOB, CHEST Verified 01/22/20 13:20 PAIN epinephrine AdvReac Mild DIZZINESS Verified 01/22/20 13:20 Ibandronic Acid AdvReac Mild GERD Uncoded 01/22/20 13:20 Home Medications Medication Instructions Recorded Confirmed Type albuterol sulfate [Ventolin HFA] 2 puff INHALATION Q6H PRN 01/30/19 01/22/20 History cholecalciferol (vitamin D3) 2,000 unit PO QAM 01/30/19 01/22/20 History [Vitamin D3] cyanocobalamin (vitamin B-12) 2,500 mcg SUBLINGUAL WK 01/30/19 01/22/20 History [Vitamin B-12] ondansetron HCl 4 mg PO Q6H PRN 01/30/19 01/22/20 History polyethylene glycol 3350 [Miralax] 17 g PO DAILY PRN 01/30/19 01/22/20 History vitamin B complex 1 tab PO QAM 01/30/19 01/22/20 History ascorbate calcium (vitamin C) 500 1 gm PO BID tab 05/31/19 01/22/20 History mg tablet aspirin 325 mg tablet 325 mg PO DAILY PRN 05/31/19 01/22/20 History biotin 2,500 mcg capsule 2,500 mcg PO QAM 05/31/19 01/22/20 History bisacodyl 5 mg tablet 5 mg PO HS PRN 05/31/19 01/22/20 History Anders's Yeast 680 mg PO QAM 10/19/19 01/22/20 History Collagen Plus Vitamin C 1 cap PO DAILY 10/19/19 01/22/20 History Saccharomyces boulardii [Probiotic 250 mg PO HS 10/19/19 01/22/20 History (S.boulardii)] Triboron 1 tab PO QAM 10/19/19 01/22/20 History coQ10 (ubiquinol) 200 mg PO QAM 10/19/19 01/22/20 History cod liver oil 15 ml PO 3XWK 10/19/19 01/22/20 History folic acid 0.8 mg PO QAM 10/19/19 01/22/20 History magnesium oxide 400 mg PO HS 10/19/19 01/22/20 History melatonin 1 mg PO HS 10/19/19 01/22/20 History milk thistle 500 mg PO QAM 10/19/19 01/22/20 History riboflavin (vitamin B2) [Vitamin 100 mg PO DAILY PRN 10/19/19 01/22/20 History B-2] selenium 200 mcg PO QAM 10/19/19 01/22/20 History vitamin K2 40 mcg PO QAM 10/19/19 01/22/20 History zinc 50 mg PO QAM 10/19/19 01/22/20 History omeprazole 20 mg-sodium 1 cap PO DAILY 12/12/19 01/22/20 History bicarbonate 1.1 gram capsule amoxicillin-pot clavulanate 1 tab PO BID #14 tab 07/21/20 Rx [Augmentin] azelastine 1 spray INTRANASAL BID 07/21/20 07/21/20 History [id number] [Creon] 1 cap PO TIDM 07/21/20 07/21/20 History metformin 500 mg PO DAILY 07/21/20 07/21/20 History sucralfate 1 g PO ACHS PRN 07/21/20 07/21/20 History Past Med/Surg History Medical History (Updated 07/21/20 @ 14:10 by Verona Engel PA-C) Actinic keratosis Anxiety Chemotherapy-induced neuropathy Degenerative disc disease Dysplastic nevus GERD (gastroesophageal reflux disease) History of left breast cancer 1991--sx/chemo/radiation History of ovarian cancer diagnosed 1991--pt states it was "a 00 rating"--found after hysterectomy 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) Pancreatitis Prediabetes T2DM (type 2 diabetes mellitus) Surgical History H/O oophorectomy History of appendectomy History of basal cell carcinoma back, face tx with ulloa 2000 History of bilateral breast reduction surgery History of bilateral cataract extraction History of blepharoplasty bilt eyes, upper and lower History of breast biopsy malignant History of cholecystectomy History of colonoscopy History of dilatation and curettage History of ERCP History of hysterectomy d/t fibroids History of open reduction and internal fixation (ORIF) procedure right tibia fx--hardware in place History of open reduction and internal fixation (ORIF) procedure left wrist--hardware removed History of oral surgery gum sx History of parathyroidectomy right side--benign tumor History of root canal procedure History of thumb surgery right, tissue repair History of tonsillectomy and adenoidectomy History of wisdom tooth extraction Melanoma stage 1A, negative SLN right upper back 1999 stage 1A 0.2 mm superficial spreading ? location 2018 Dr. Toro Family History Mother Family history of diabetes mellitus Family hx colonic polyps Hearing loss Hypertension Stroke Heart disease Allergies Sister Family history of diabetes mellitus Family hx colonic polyps Hypertension Cancer Heart disease Allergies Brother Cancer Other No family history of adverse response to anesthesia No family history of bleeding disorder No significant family history Denies family history of Asthma Social History Smoking Status: Never smoker Second Hand Exposure: No; Hx Alcohol Use: Yes (collin ) Alcohol type: other Alcohol Intake Frequency Comment: once a year Hx Substance Use: No Preferred Language: Lithuanian Communication Ability: Effective 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 Beliefs That Will Affect Care: None Current Living Situation: Spouse current occupational status: retired other: retired [employer] Feels Safe at Home: Yes Assistive Devices: Glasses Review of Systems Review of Systems: All systems reviewed & are unremarkable except as noted in HPI & below Physical Exam Constitutional: WD/WN, vitals as above Eyes: PERRL, conjunctivae normal, anicteric sclerae ENMT: external ear and nose normal, oropharynx normal Neck: trachea midline, no thyromegaly normal visual inspection Respiratory: normal respiratory effort, lungs clear to auscultation no cough Auscultation: no crackles, no rhonchi and no wheezes Cardiovascular: RRR, no murmur, no edema Chest (Breasts): Chest: normal inspection of chest Gastrointestinal (Abdomen): Inspection/Auscultation: abdomen normal to inspection, + abdomen distended (mildly) and normal bowel sounds Percussion/Palpation: + abdomen tender (lower abd. quadrants b/l) and abdomen soft; no guarding and abdomen not rigid Musculoskeletal: no cyanosis or clubbing, extremities motor strength 5/5 Head/Neck/Chest: normocephalic and head atraumatic Skin: no rashes, warm and dry Neurologic: PERRL, EOMI, accommodation nl, no face palsy, no dysarthria moves all extremities Psychiatric: A+Ox3, euthymic affect Genitourinary: no CVA tenderness Lymphatic: no lymphedema Results & Data Results & Data ([facility]) Vital Signs (Past 12 Hours) Vital Signs Temp Pulse Resp BP Pulse Ox 07/21/20 12:30 76 18 129/67 97 07/21/20 12:00 76 18 124/68 97 07/21/20 11:24 36.6 C 85 18 114/66 97 Diagnostic Findings KUB X-Ray 07/21/20 11:48 KUB CLINICAL HISTORY: Diverticulitis COMPARISON STUDY: CT of the abdomen and pelvis July 21, 2020 at 4:51 AM. FINDINGS: There is contrast within the collecting systems and bladder from recent contrast-enhanced CT. Cholecystectomy clips are noted. Bowel gas pattern is normal. Sensitivity for detection of free air is diminished on this supine exam but there is no evidence for free air. IMPRESSION: 1. No evidence for a bowel obstruction. 2. No evidence for free air although sensitivity diminished on this supine exam. ACT 112: Negative or not required by law. Electronically signed by: Doyle Vance M.D. 07/21/2020 12:[address] a/p: FINDINGS: 4 mm right middle lobe nodule on image 8 of [address] of September 27, 2019. This is indeterminate. Mild cardiomegaly is noted. No pneumatosis, free air or portal venous gas is present. Slight prominence of the common bile duct is likely related to cholecystectomy. Is no peripancreatic infiltration. The spleen, adrenal glands and kidneys are normal. There is no evidence for a bowel obstruction. Note is made of sigmoid diverticulosis. There is an inflamed diverticulum of the distal descending colon with moderate associated inflammation. There is sigmoid colon wall thickening. No free air or abscess is present. Major vasculature is patent. IMPRESSION: Findings consistent with acute sigmoid diverticulitis. No free air or abscess. Moderate inflammation. Follow-up colonoscopy once symptoms resolve is recommended to exclude the unlikely possibility of an underlying colonic lesion. Medications Administered Discontinued Medications Fentanyl Citrate (Fentanyl Citrate 100 Mcg/2 Ml Vial) 50 mcg IV NOW STA Stop: 07/21/20 11:49 Last Admin: 07/21/20 12:19 Dose: 50 mcg Documented by: [id number] Sodium Chloride (Nss 1000ml) 500 mls @ 999 mls/hr IV .Q31M ONE Stop: 07/21/20 12:18 Last Infusion: 07/21/20 12:49 Dose: 0 mls/hr Documented by: [id number] Admin: 07/21/20 12:18 Dose: 999 mls/hr Documented by: [id number] Ondansetron HCl (Ondansetron Inj 2 Mg/Ml 2 Ml Vial) 4 mg IV NOW STA Stop: 07/21/20 11:49 Last Admin: 07/21/20 12:19 Dose: 4 mg Documented by: [id number] COVID-19 Results Results COVID-19 Adm Lab Results: RBC 4.17 M/uL (4.2-5.4) L 07/21/20 WBC 14.27 K/uL (4.8-10.8) H 07/21/20 Hgb 13.1 g/dL (12.0-16.0) 07/21/20 Hct 38.8 % (37-47) 07/21/20 Plt Count 246 K/uL (130-400) 07/21/20 Neutrophils (%) (Auto) 81.8 % 07/21/20 Lymphocytes (%) (Auto) 5.0 % 07/21/20 Monocytes # (Auto) 1.73 K/uL (0.11-0.59) H 07/21/20 Eosinophils # (Auto) 0.11 K/uL (0-0.5) 07/21/20 Immature Granulocyte % (Auto) 0.2 % 07/21/20 Neutrophils # (Auto) 11.66 K/uL (1.4-6.5) H 07/21/20 Lymphocytes # (Auto) 0.72 K/uL (1.2-3.4) L 07/21/20 Monocytes # (Auto) 1.73 K/uL (0.11-0.59) H 07/21/20 Eosinophils # (Auto) 0.11 K/uL (0-0.5) 07/21/20 Basophils # (Auto) 0.02 K/uL (0-0.2) 07/21/20 Immature Granulocyte # (Auto) 0.03 K/uL (0.00-0.02) H 07/21/20 Na 140 mmol/L (136-145) 07/21/20 K 3.9 mmol/L (3.5-5.1) 07/21/20 Cl 107 mmol/L (98-107) 07/21/20 CO2 28 mmol/L (21-32) 07/21/20 Anion Gap 5.0 (3-11) 07/21/20 BUN 20 mg/dl (7-18) H 07/21/20 Creatinine 0.77 mg/dl (0.6-1.2) 07/21/20 BUN/Creatinine Ratio 26.1 (10-20) H 07/21/20 Glucose Level 146 mg/dl (70-99) H 07/21/20 Ca 8.8 mg/dl (8.5-10.1) 07/21/20 COVID-19 PCR NEGATIVE (Negative) 07/21/20 Influenza Virus Type A (PCR) Negative (Neg) 07/21/20 Influenza Virus Type B (PCR) Negative (Neg) 07/21/20 Code Status & VTE Plan Code Status FUll Code VTE Prophylaxis Plan VTE Prophylaxis will be ordered: Yes Supervising Physician Co-Signing Physician Notes Patient seen and examined by me, care coordinated with Verona Engel PA-C, please refer to her note above for further detail. Physical exam edited by myself, in the note above. Patient seen in the ED room, laying in bed, with at the bedside. Patient in mild distress due to abdominal pain, alert and oriented answering questions appropriately. Reports nausea since Wednesday, and abd. pain which started at 1 AM, at that time patient presented to the ED, was discharged with Augmentin, however was not able to" keep anything down" and so returned. She has history of constipation, was using MiraLAX and other stool softeners, then developed diarrhea. For recurrent GI issues, patient reports she follows with Dr. Figueroa. We will start IV antibiotic, Zosyn, pain management and antiemetics. We will continue to closely monitor. Recommend follow-up with Dr. Figueroa after discharge. Tawanda Turner MD (1) Abdominal pain Abdominal location: lower abdomen, unspecified Qualified Code(s): R10.30 - Lower abdominal pain, unspecified
[2020-07-21] MEDS ORDERED: ACETAMINOPHEN 1,000 MG/100 ML VIAL IV STA (14:25)
[2020-07-21 14:47] LABS: Influenza A virus by PCR Negative (Neg); Influenza B virus by PCR Negative (Neg); RSV by PCR Negative (Neg); SARS CoV2 RNA(COVID-19) InHosp NEGATIVE (Negative)
[2020-07-21 15:16] LABS: Appearance Urine Clear (Clear); Bilirubin Urine Negative (Negative); Blood Urine Negative (Negative); Color Urine Yellow; Glucose Urine UA Negative (Negative); Ketones Urine Negative (Negative); Leukocyte Esterase Urine Negative (Negative); Nitrite Urine Negative (Negative); Protein Urine Negative (Negative); Specific Gravity Urine 1.034 (1.000-1.030); Urobilinogen Urine Negative (Negative)
[2020-07-21] MEDS: LACTATED RINGER'S 1,000 ML IV SCH (15:33)
[2020-07-21] MEDS ORDERED: ACETAMINOPHEN 325 MG TAB PO PRN (16:15)
[2020-07-21] MEDS ORDERED: oxyCODONE HCL IR 5 MG TAB (IMMEDIATE RELEASE) PO PRN (16:15)
[2020-07-21] MEDS ORDERED: HYDROmorphone INJ 0.5 MG/0.5 ML SYR IV PRN (16:15)
[2020-07-21] MEDS ORDERED: CARBOHYDRATES FOR HYPOGLYCEMIA PO PRN (16:15)
[2020-07-21] MEDS ORDERED: GLUCOSE 10 TABS/TUBE PO PRN (16:15)
[2020-07-21] MEDS ORDERED: POLYETHYLENE (MIRALAX) 17 GM PACK PO PRN (16:15)
[2020-07-21] MEDS ORDERED: ALBUTEROL HFA 8 GM INHALER INH PRN (16:15)
[2020-07-21] MEDS ORDERED: GLUCAGON FOR INJ 1 MG VIAL SQ PRN (16:15)
[2020-07-21] MEDS ORDERED: DEXTROSE 50% 50 ML SYRINGE IV PRN (16:15)
[2020-07-21] MEDS ORDERED: GLUCOSE 40% GEL 15 GM TUBE PO PRN (16:15)
--- NOTE | 2020-07-21 17:38 | Surgery Consultation ---
Date of Consultation July 21, 2020 Assessment & Plan (1) Acute diverticulitis: 79-year-old female with uncomplicated mild acute diverticulitis. This is her second episode overall and her first episode required hospital admission. She had a colonoscopy a year or 2 ago. No surgical intervention indicated at this time Recommend bowel rest and IV antibiotics Recommend IV Tylenol, IV narcotics, and Toradol for pain control Surgery will follow, call with questions or concerns (2) T2DM (type 2 diabetes mellitus): (3) GERD (gastroesophageal reflux disease): (4) Malignant neoplasm of upper-outer quadrant of female breast: (5) Malignant neoplasm of ovary: History of Present Illness Attending Physician: Rajendra Turner MD History of Present Illness 79-year-old female admitted with diverticulitis. She had one episode in the past about a year and a half ago that was treated as an outpatient with antibiotics. She had a colonoscopy in either [address] Figueroa which showed diverticula but no other abnormalities. She started having severe pain overnight and presented to the emergency department. CT scan was performed and showed uncomplicated mild diverticulitis. Her pain improved with fentanyl, and she was discharged home with antibiotics. After waking from a nap this afternoon her pain became unbearable and she started to vomit and have diarrhea. She then returned to the emergency department and is admitted to the medicine service. She has a history of ovarian cancer as well as breast cancer. She has had a hysterectomy with bilateral salpingo-oophorectomy. Not on any blood thinners. Allergies Allergy/AdvReac Type Severity Reaction Status Date / Time Proton Pump Inhibitors Allergy Severe Chest Pain Verified 01/22/20 13:20 cimetidine Allergy Intermediate dizziness Verified 01/22/20 13:20 alendronate sodium Allergy Unknown Verified 01/22/20 13:20 [From Fosamax] carbamazepine AdvReac Severe pancreatiti Verified 01/22/20 13:20 s morphine AdvReac Intermediate SEVERE PAIN Verified 01/22/20 13:20 prednisone AdvReac Intermediate "I heard Verified 01/22/20 13:20 voices and I felt crappy". [id number] Reductase AdvReac Intermediate MUSCLE Verified 01/22/20 13:20 Inhibitor WEAKNESS tramadol AdvReac Intermediate SOB, CHEST Verified 01/22/20 13:20 PAIN epinephrine AdvReac Mild DIZZINESS Verified 01/22/20 13:20 Ibandronic Acid AdvReac Mild GERD Uncoded 01/22/20 13:20 Home Medications Medication Instructions Recorded Confirmed Type albuterol sulfate [Ventolin HFA] 2 puff INHALATION Q6H PRN 01/30/19 07/21/20 History cholecalciferol (vitamin D3) 2,000 unit PO QAM 01/30/19 07/21/20 History [Vitamin D3] cyanocobalamin (vitamin B-12) 2,500 mcg SUBLINGUAL WK 01/30/19 07/21/20 History [Vitamin B-12] ondansetron HCl 4 mg PO Q6H PRN 01/30/19 07/21/20 History polyethylene glycol 3350 [Miralax] 17 g PO DAILY PRN 01/30/19 07/21/20 History vitamin B complex 1 tab PO QAM 01/30/19 07/21/20 History ascorbate calcium (vitamin C) 500 1 gm PO BID tab 05/31/19 07/21/20 History mg tablet aspirin 325 mg tablet 325 mg PO DAILY PRN 05/31/19 07/21/20 History biotin 2,500 mcg capsule 2,500 mcg PO QAM 05/31/19 07/21/20 History bisacodyl 5 mg tablet 5 mg PO HS PRN 05/31/19 07/21/20 History Anders's Yeast 680 mg PO QAM 10/19/19 07/21/20 History Collagen Plus Vitamin C 1 cap PO DAILY 10/19/19 07/21/20 History Saccharomyces boulardii [Probiotic 250 mg PO HS 10/19/19 07/21/20 History (S.boulardii)] Triboron 1 tab PO QAM 10/19/19 07/21/20 History coQ10 (ubiquinol) 200 mg PO QAM 10/19/19 07/21/20 History cod liver oil 15 ml PO 3XWK 10/19/19 07/21/20 History folic acid 0.8 mg PO QAM 10/19/19 07/21/20 History magnesium oxide 400 mg PO HS 10/19/19 07/21/20 History melatonin 1 mg PO HS 10/19/19 07/21/20 History milk thistle 500 mg PO QAM 10/19/19 07/21/20 History riboflavin (vitamin B2) [Vitamin 100 mg PO DAILY PRN 10/19/19 07/21/20 History B-2] selenium 200 mcg PO QAM 10/19/19 07/21/20 History vitamin K2 40 mcg PO QAM 10/19/19 07/21/20 History zinc 50 mg PO QAM 10/19/19 07/21/20 History omeprazole 20 mg-sodium 1 cap PO DAILY 12/12/19 07/21/20 History bicarbonate 1.1 gram capsule amoxicillin-pot clavulanate 1 tab PO BID #14 tab 07/21/20 07/21/20 Rx [Augmentin] azelastine 1 spray INTRANASAL BID 07/21/20 07/21/20 History [id number] [Creon] 1 cap PO TIDM 07/21/20 07/21/20 History metformin 500 mg PO DAILY 07/21/20 07/21/20 History sucralfate 1 g PO ACHS PRN 07/21/20 07/21/20 History Patient History Medical History (Updated 07/21/20 @ 14:10 by Verona Engel PA-C) Actinic keratosis Anxiety Chemotherapy-induced neuropathy Degenerative disc disease Dysplastic nevus GERD (gastroesophageal reflux disease) History of left breast cancer 1991--sx/chemo/radiation History of ovarian cancer diagnosed 1991--pt states it was "a 00 rating"--found after hysterectomy 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) Pancreatitis Prediabetes T2DM (type 2 diabetes mellitus) Surgical History H/O oophorectomy History of appendectomy History of basal cell carcinoma back, face tx with artemio 2000 History of bilateral breast reduction surgery History of bilateral cataract extraction History of blepharoplasty bilt eyes, upper and lower History of breast biopsy malignant History of cholecystectomy History of colonoscopy History of dilatation and curettage History of ERCP History of hysterectomy d/t fibroids History of open reduction and internal fixation (ORIF) procedure right tibia fx--hardware in place History of open reduction and internal fixation (ORIF) procedure left wrist--hardware removed History of oral surgery gum sx History of parathyroidectomy right side--benign tumor History of root canal procedure History of thumb surgery right, tissue repair History of tonsillectomy and adenoidectomy History of wisdom tooth extraction Melanoma stage 1A, negative SLN right upper back 1999 stage 1A 0.2 mm superficial spreading ? location [address] Dr. Toro Family History Mother Family history of diabetes mellitus Family hx colonic polyps Hearing loss Hypertension Stroke Heart disease Allergies Sister Family history of diabetes mellitus Family hx colonic polyps Hypertension Cancer Heart disease Allergies Brother Cancer Other No family history of adverse response to anesthesia No family history of bleeding disorder No significant family history Denies family history of Asthma Social History Smoking Status: Never smoker Second Hand Exposure: No; Hx Alcohol Use: No Hx Substance Use: No Preferred Language: Belarusian Communication Ability: Effective Hourly Sign Language Interpreter Required: No Beliefs That Will Affect Care: None Current Living Situation: Spouse 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 Feels Safe at Home: Yes Assistive Devices: Glasses Review of Systems Review of Systems: All systems reviewed & are unremarkable except as noted in HPI & below Physical Exam Constitutional: WD/WN, vitals as above Respiratory: normal respiratory effort, lungs clear to auscultation Cardiovascular: RRR, no murmur, no edema Gastrointestinal (Abdomen): Inspection/Auscultation: + abdominal surgical incision Percussion/Palpation: + abdomen tender (Left lower quadrant), abdomen soft and + hernia (Small umbilical); no guarding and abdomen not rigid Results & Data ([facility]) Vital Signs (Past 12 Hours) Vital Signs Temp Pulse Pulse Pulse Resp BP BP 07/21/20 16:20 36.9 C 77 18 122/65 07/21/20 16:16 36.9 C 77 18 122/65 07/21/20 15:02 72 18 07/21/20 14:57 78 18 121/70 07/21/20 14:31 72 21 07/21/20 14:30 73 23 121/70 07/21/20 14:01 71 21 07/21/20 14:00 69 17 124/68 07/21/20 13:31 72 17 07/21/20 13:30 67 18 116/64 07/21/20 13:01 67 14 07/21/20 13:00 67 15 122/66 07/21/20 12:42 68 13 07/21/20 12:30 68 14 129/67 07/21/20 12:00 76 18 124/68 07/21/20 11:24 36.6 C 85 18 114/66 Pulse Ox 07/21/20 16:20 94 07/21/20 16:16 94 07/21/20 15:02 07/21/20 14:57 97 07/21/20 14:31 98 07/21/20 14:30 98 07/21/20 14:01 98 07/21/20 14:00 97 07/21/20 13:31 98 07/21/20 13:30 98 07/21/20 13:01 98 07/21/20 13:00 98 07/21/20 12:42 98 07/21/20 12:30 98 07/21/20 12:00 97 07/21/20 11:24 97 Laboratory Results Laboratory Results - last 24 hr 07/21/20 07/21/20 07/21/20 12:08 12:08 13:49 WBC 14.27 H RBC 4.17 L Hgb 13.1 Hct 38.8 MCV 93.0 MCH 31.4 MCHC 33.8 RDW Std Deviation 44.8 RDW Coeff of Mack 13.1 Plt Count 246 MPV 10.3 Immature Gran % (Auto) 0.2 Neut % (Auto) 81.8 Lymph % (Auto) 5.0 Prentiss % (Auto) 12.1 Eos % (Auto) 0.8 Baso % (Auto) 0.1 Neut # (Auto) 11.66 H Lymph # (Auto) 0.72 L Prentiss # (Auto) 1.73 H Eos # (Auto) 0.11 Baso # (Auto) 0.02 Immature Gran # (Auto) 0.03 H Sodium 140 Potassium 3.9 Chloride 107 Carbon Dioxide 28 Anion Gap 5.0 BUN 20 H Creatinine 0.77 Est Cr Clr Drug Dosing 76.0 Est GFR ( Amer) 85.7 Est GFR (Non-Af Amer) 74.0 BUN/Creatinine Ratio 26.1 H Glucose 146 H Calcium 8.8 Urine Color Urine Appearance Urine pH Ur Specific Galt Urine Protein Urine Glucose (UA) Urine Ketones Urine Blood Urine Nitrite Urine Bilirubin Urine Urobilinogen Ur Leukocyte Esterase COVID-19 Eval Order CovFluRsv at [facility] SARS-CoV-2 (PCR) Influenza Type A (PCR) Influenza Type B (PCR) RSV (RT-PCR) 07/21/20 07/21/20 13:49 15:00 WBC RBC Hgb Hct MCV MCH MCHC RDW Std Deviation RDW Coeff of Mack Plt Count MPV Immature Gran % (Auto) Neut % (Auto) Lymph % (Auto) Prentiss % (Auto) Eos % (Auto) Baso % (Auto) Neut # (Auto) Lymph # (Auto) Prentiss # (Auto) Eos # (Auto) Baso # (Auto) Immature Gran # (Auto) Sodium Potassium Chloride Carbon Dioxide Anion Gap BUN Creatinine Est Cr Clr Drug Dosing Est GFR ( Amer) Est GFR (Non-Af Amer) BUN/Creatinine Ratio Glucose Calcium Urine Color Yellow Urine Appearance Clear Urine pH 5.0 Ur Specific Galt 1.034 H Urine Protein Negative Urine Glucose (UA) Negative Urine Ketones Negative Urine Blood Negative Urine Nitrite Negative Urine Bilirubin Negative Urine Urobilinogen Negative Ur Leukocyte Esterase Negative COVID-19 Eval Order SARS-CoV-2 (PCR) NEGATIVE Influenza Type A (PCR) Negative Influenza Type B (PCR) Negative RSV (RT-PCR) Negative Diagnostic Findings I personally reviewed and interpreted the CT scan and agree with the read as below. Mild acute diverticulitis with no evidence of perforation or abscess. CT OF THE ABDOMEN AND PELVIS WITH CONTRAST CLINICAL HISTORY: Abdominal pain, constipation, hx diverticulitis. COMPARISON STUDY: CT of the abdomen and pelvis January 12, 2020.. TECHNIQUE: Following IV administration of 90 mL of Optiray, axial images of the abdomen and pelvis were obtained from the lung bases to the proximal femurs. Images were reviewed in the axial, sagittal, and coronal planes. IV contrast was administered without complication. Automated exposure control was utilized for the study. A dose lowering technique was utilized adhering to the principles of ALARA. CT DOSE: 741.83 mGy.cm FINDINGS: 4 mm right middle lobe nodule on image 8 of [address] of September 27, 2019. This is indeterminate. Mild cardiomegaly is noted. No pneumatosis, free air or portal venous gas is present. Slight prominence of the common bile duct is likely related to cholecystectomy. Is no peripancreatic infiltration. The spleen, adrenal glands and kidneys are normal. There is no evidence for a bowel obstruction. Note is made of sigmoid diverticulosis. There is an inflamed diverticulum of the distal descending colon with moderate associated inflammation. There is sigmoid colon wall thickening. No free air or abscess is present. Major vasculature is patent. IMPRESSION: Findings consistent with acute sigmoid diverticulitis. No free air or abscess. Moderate inflammation. Follow-up colonoscopy once symptoms resolve is recommended to exclude the unlikely possibility of an underlying colonic lesion. PG Care Time/CCT Total # of Minutes Spent Total Time Spent with Patient: Total time spent is greater than 50% in coordination of care (as documented) at patient's floor/unit and/or counseling patient: Coding Level of Care Code 29530 Initial Inpt Care Lvl 2 Diagnoses Acute diverticulitis K57.92 T2DM (type 2 diabetes mellitus) E11.9 GERD (gastroesophageal reflux disease) K21.9 Malignant neoplasm of upper-outer quadrant of female breast C50.419 Malignant neoplasm of ovary C56.9
[2020-07-21] MEDS: PIPERACILLIN/TAZOBACTAM 3.375 GM in DEXTROSE 5% 100 ML IV SCH (20:03)
[2020-07-21] MEDS: ENOXAPARIN INJ 40 MG/0.4 ML SYR SQ SCH (21:21)
[2020-07-21] MEDS: ONDANSETRON INJ 2 MG/ML 2 ML VIAL IV PRN (21:31)
[2020-07-21] MEDS: ACETAMINOPHEN 1,000 MG/100 ML VIAL IV SCH (22:49)
[2020-07-22] MEDS: LACTATED RINGER'S 1,000 ML IV SCH ×3 (00:17→19:33)
[2020-07-22] MEDS: PIPERACILLIN/TAZOBACTAM 3.375 GM in DEXTROSE 5% 100 ML IV SCH ×3 (03:41→20:49)
[2020-07-22] MEDS: ACETAMINOPHEN 1,000 MG/100 ML VIAL IV SCH ×3 (05:57→22:32)
[2020-07-22 06:21] LABS: Basophils # (auto) 0.02 K/uL (0-0.2); Basophils % (auto) 0.2 %; Eosinophils # (auto) 0.14 K/uL (0-0.5); Eosinophils % (auto) 1.3 %; Hematocrit (blood only) 32.9 % (37-47); Hemoglobin 11.1 g/dL (12.0-16.0); Immature Granulocytes # (auto) 0.02 K/uL (0.00-0.02); Immature Granulocytes % (auto) 0.2 %; Lymphocytes # (auto) 1.89 K/uL (1.2-3.4); Lymphocytes % (auto) 17.6 %; Mean Corpuscular Hemoglobin 31.3 pg (25-34); Mean Corpuscular Hgb Conc 33.7 g/dL (32-36); Mean Corpuscular Volume 92.7 fL (80-100); Mean Platelet Volume 10.6 fL (7.4-10.4); Monocytes # (auto) 1.17 K/uL (0.11-0.59); Monocytes % (auto) 10.9 %; Neutrophils % (auto) 69.8 %; Platelet Count 219 K/uL (130-400); RDW Coefficient of Variation 13.2 % (11.5-14.5); RDW Standard Deviation 45.1 fL (36.4-46.3); Red Blood Count 3.55 M/uL (4.2-5.4); White Blood Count 10.74 K/uL (4.8-10.8)
[2020-07-22 06:51] LABS: Albumin Level 2.7 gm/dl (3.4-5.0); BUN Creatinine Ratio 20.7 (10-20); Calcium 8.4 mg/dl (8.5-10.1); Creatinine Clr Calc Pharmacy 74.1 ml/min; Est GFR (African American) 83.1; Est GFR (Non-African American) 71.7; Potassium 3.7 mmol/L (3.5-5.1)
[2020-07-22 06:57] LABS: Albumin Globulin Ratio 0.7 (0.9-2); Bilirubin,Total 0.5 mg/dl (0.2-1); Globulin 3.6 gm/dl (2.5-4.0); Total Protein 6.3 gm/dl (6.4-8.2)
[2020-07-22 07:30] LABS: Estimated Average Glucose 134 mg/dl; Hemoglobin A1C 6.3 % (4.5-5.6)
[2020-07-22] MEDS: SODIUM BICARBONATE 650 MG TAB PO SCH (07:56)
[2020-07-22] MEDS: PANTOprazole 40 MG TAB PO SCH (07:56)
--- NOTE | 2020-07-22 13:08 | Surgery Progress Note ---
Date of Service July 22, 2020 Assessment & Plan Admission and Anticipated Discharge Date Admission Date: July 21, 2020 Subjective 79-year-old female admitted with mild uncomplicated diverticulitis. She is sti ll little sore, but slightly improved from yesterday. She did need some pain meds overnight but this resolved her pain and she was able to sleep. On exam she is afebrile stable vitals. Abdomen is soft, mildly tender to palpation in the left lower quadrant without guarding or rebound. WBC normal but with slight left shift. We will continue with nonoperative management. Hopefully be able advance her diet to clear liquids either later this afternoon or tomorrow. Continue IV antibiotics. Surgery will continue to follow. Results & Data ([facility]) Vital Signs (Past 12 Hours) Vital Signs Temp Pulse Resp BP Pulse Ox 07/22/20 08:26 37.2 C 64 16 90/52 L 91 PG Care Time/CCT Total # of Minutes Spent Total Time Spent with Patient: Total time spent is greater than 50% in coordination of care (as documented) at patient's floor/unit and/or counseling patient: Coding Level of Care Code 61493 Inpt Consult Level 3
--- NOTE | 2020-07-22 15:26 | Hospitalist Progress Note ---
Date of Service July 22, 2020 Assessment & Plan (1) Acute diverticulitis: (2) Abdominal pain: This is a 79 year old F who has significant PMH of T2DM, HLD, polyneuropathy, chronic constipation, GERD, Osteoporosis, hx of pancreatitis, hx of breast and ovarian cancer who presents to ED 2/2 to abdominal pain x 2 day. Acute sigmoid diverticulitis, failed outpt treatment Patient continues to have significant pain. Keep n.p.o. for now. Continue with maintenance IV fluids. Will continue with IV Zosyn for now. Appreciate surgery input. IV APAP scheduled prn oxycodone moderate pain, IV dilaudid severe pain recommend follow up Dr. Figueroa GI as oupt - last cscope 10/2019 mild sigmoid diverticulosis, internal hemorrhoids, bx normal, IBS (3) T2DM (type 2 diabetes mellitus): last a1c 6.6 on 10/2019 Hemoglobin A1c of 6.3.. hold metformin accuchecks q6h while npo monitor bsg if consistently elevated add insulin (4) GERD (gastroesophageal reflux disease): continue PPI, prn carafate Hx of breast ca/ovarian ca/melanoma in remission Hx of recurrent pancreatitis pt is on creon w/ meals hold for now, when able to tolerate PO resume (5) DVT prophylaxis: SQ Lovenox Dispo:med/surg PCP: Dr. Morelos FULL CODE Admission and Anticipated Discharge Date Admission Date: July 21, 2020 Subjective Reports she had an awful night. Reports she had significant lower abdominal pain. States she was nauseous overnight but not currently. Denies any chest pain or shortness of breath. Review of Systems Review of Systems: All systems reviewed & are unremarkable except as noted in HPI & below Physical Exam Physical Exam: General: A&Ox3 HENT: NCAT, MMM, EOMI Eyes: PERRLA Neck: Supple, normal range of motion CVS: normal rate and rhythm Resp: b/l good breath sounds Abdomen: Soft, mild lower abdomen tenderness appreciated Extremities: No c/c/e Neuro: face symmetric, no focal deficit Skin: warm and dry, no rashes/lesions/errythema MSK: nno joint swelling/erythema Results & Data Results & Data ([facility]) Vital Signs (Past 12 Hours) Vital Signs Temp Pulse Resp BP Pulse Ox 07/22/20 08:26 37.2 C 64 16 90/52 L 91 (1) Abdominal pain Abdominal location: lower abdomen, unspecified Qualified Code(s): R10.30 - Lower abdominal pain, unspecified
[2020-07-22] MEDS: ENOXAPARIN INJ 40 MG/0.4 ML SYR SQ SCH (22:32)
[2020-07-23] MEDS: ONDANSETRON INJ 2 MG/ML 2 ML VIAL IV PRN (00:13)
[2020-07-23] MEDS: PIPERACILLIN/TAZOBACTAM 3.375 GM in DEXTROSE 5% 100 ML IV SCH ×3 (04:41→20:48)
[2020-07-23] MEDS: LACTATED RINGER'S 1,000 ML IV SCH ×2 (04:41→15:04)
[2020-07-23] MEDS: ACETAMINOPHEN 1,000 MG/100 ML VIAL IV SCH ×3 (07:39→22:34)
--- NOTE | 2020-07-23 07:39 | Surgery Progress Note ---
Date of Service July 23, 2020 Assessment & Plan (1) Acute diverticulitis: Patient here with acute diverticulitis; no free air/abscess seen on CT scan Abdominal pain remains present, but improving each day Continue IV abx Can start clear liquids this AM Admission and Anticipated Discharge Date Admission Date: July 21, 2020 Supervising Physician Co-Signing Physician Notes Patient seen and examined, labs reviewed, agree with above. 79-year-old female admitted with mild uncomplicated diverticulitis. Overall improved. On exam she is afebrile with stable vitals. Her abdomen is soft, minimally tender to palpation in the left lower quadrant. She started on clears this morning and can likely advance to full liquid later today. Possible low fiber diet tomorrow and discharged on home antibiotics. Surgery will follow peripherally, call with questions or concerns. Subjective Patient says she slept fairly well overnight. She still has some lower abdominal pain, but says it is improving. She said she felt nauseated after receiving dilaudid overnight, but denies any emesis and believes it was related with the narcotic. She is passing flatus. No BM yet. Is thirsty. Physical Exam Physical Exam: awake/alert Constitutional: no acute distress Respiratory: normal respiratory effort Gastrointestinal (Abdomen): Percussion/Palpation: + abdomen tender (some ttp in lower abd.) and abdomen soft Results & Data ([facility]) Vital Signs (Past 12 Hours) Vital Signs Temp Pulse Resp BP Pulse Ox 07/22/20 23:29 36.7 C 63 18 105/61 93 PG Care Time/CCT Total # of Minutes Spent Total Time Spent with Patient: Total time spent is greater than 50% in coordination of care (as documented) at patient's floor/unit and/or counseling patient: Coding Level of Care Code 67376 Subseq Hosp Care Lvl 1 Diagnoses Acute diverticulitis K57.92
[2020-07-23] MEDS: PANTOprazole 40 MG TAB PO SCH (07:51)
[2020-07-23] MEDS: SODIUM BICARBONATE 650 MG TAB PO SCH (07:51)
--- NOTE | 2020-07-23 14:49 | Hospitalist Progress Note ---
Date of Service July 23, 2020 Assessment & Plan (1) Acute diverticulitis: (2) Abdominal pain: This is a 79 year old F who has significant PMH of T2DM, HLD, polyneuropathy, chronic constipation, GERD, Osteoporosis, hx of pancreatitis, hx of breast and ovarian cancer who presents to ED 2/2 to abdominal pain x 2 day. Acute sigmoid diverticulitis, failed outpt treatment Continue clear liquid diet, advance as tolerated. Continue maintenance IV fluids. Will continue with IV Zosyn for now. Appreciate surgery input. IV APAP scheduled prn oxycodone moderate pain, IV dilaudid severe pain recommend follow up Dr. Figueroa GI as oupt - last cscope 10/2019 mild sigmoid di verticulosis, internal hemorrhoids, bx normal, IBS (3) T2DM (type 2 diabetes mellitus): last a1c 6.6 on 10/2019 Hemoglobin A1c of 6.3.. hold metformin accuchecks q6h while npo monitor bsg if consistently elevated add insulin (4) GERD (gastroesophageal reflux disease): continue PPI, prn carafate Hx of breast ca/ovarian ca/melanoma in remission Hx of recurrent pancreatitis pt is on creon w/ meals hold for now, when able to tolerate PO resume (5) DVT prophylaxis: SQ Lovenox Dispo:med/surg PCP: Dr. Morelos FULL CODE Admission and Anticipated Discharge Date Admission Date: July 21, 2020 Subjective Patient reports she is feeling better today. Tolerating clear liquid diet. Reports nausea and abdominal pain is improved. Denies any chest pain or shortness of breath. Denies any dysuria. Review of Systems Review of Systems: All systems reviewed & are unremarkable except as noted in HPI & below Physical Exam Physical Exam: General: A&Ox3 HENT: NCAT, MMM, EOMI Eyes: PERRLA Neck: Supple, normal range of motion CVS: normal rate and rhythm Resp: b/l good breath sounds Abdomen: Soft, mild lower abdomen tenderness appreciated Extremities: No c/c/e Neuro: face symmetric, no focal deficit Skin: warm and dry, no rashes/lesions/errythema MSK: nno joint swelling/erythema Results & Data Results & Data ([facility]) Vital Signs (Past 12 Hours) Vital Signs Temp Pulse Resp BP Pulse Ox 07/23/20 08:52 36.4 C L 64 16 106/64 94 (1) Abdominal pain Abdominal location: lower abdomen, unspecified Qualified Code(s): R10.30 - Lower abdominal pain, unspecified
[2020-07-23] MEDS: ENOXAPARIN INJ 40 MG/0.4 ML SYR SQ SCH (22:34)
[2020-07-24] MEDS ORDERED: MELATONIN 3 MG TAB PO PRN (01:04)
[2020-07-24] MEDS: LACTATED RINGER'S 1,000 ML IV SCH ×2 (01:06→09:47)
[2020-07-24] MEDS: PIPERACILLIN/TAZOBACTAM 3.375 GM in DEXTROSE 5% 100 ML IV SCH (03:43)
[2020-07-24] MEDS ORDERED: ALUMINUM/MAGNESIUM/SIMETH (MAALOX MAX) 30 ML UDC PO PRN (07:31)
[2020-07-24] MEDS: ACETAMINOPHEN 1,000 MG/100 ML VIAL IV SCH (07:41)
[2020-07-24] MEDS: PANTOprazole 40 MG TAB PO SCH (08:48)
[2020-07-24] MEDS: SODIUM BICARBONATE 650 MG TAB PO SCH (08:48)
--- NOTE | 2020-07-24 08:54 | Surgery Progress Note ---
Date of Service July 24, 2020 Assessment & Plan (1) Acute diverticulitis: Patient feeling well. VSS and she is afebrile She has been tolerating full liquid diet She is passing flatus and having BM's Abdomen is soft and non tender Will trial advancing to low fiber diet today. Patient wishes to speak to dietary again regarding low fiber diet if able If does well can consider discharge to home later today and have her complete a full course of po abx Admission and Anticipated Discharge Date Admission Date: July 21, 2020 Supervising Physician Co-Signing Physician Notes Patient seen and examined, labs reviewed, agree with above. Uncomplicated diverticulitis, pain improved, having multiple loose bowel movements. Abdomen soft, nontender. WBC normal. DC to home on low fiber diet with oral antibiotics. No indication for elective sigmoidectomy at this time. She had a C-scope 1 year ago. Subjective Patient feels well this AM. Did report some GERD with starting a liquid diet, but has since received some anti-reflux medication with relief. She reports her pain has pretty much resolved. She denies n/v. She is passing flatus and starting to pass loose stools. Physical Exam Physical Exam: awake/alert Constitutional: no acute distress Respiratory: normal respiratory effort Gastrointestinal (Abdomen): Inspection/Auscultation: + abdomen distended (mild) Percussion/Palpation: abdomen soft; abdomen nontender Results & Data ([facility]) Vital Signs (Past 12 Hours) Vital Signs Temp Pulse Pulse Resp BP Pulse Ox 07/24/20 08:46 55 L 07/24/20 07:15 36.4 C L 48 L 16 110/70 95 07/23/20 23:54 36.9 C 58 L 18 107/65 93 PG Care Time/CCT Total # of Minutes Spent Total Time Spent with Patient: Total time spent is greater than 50% in coordination of care (as documented) at patient's floor/unit and/or counseling patient: Coding Level of Care Code 29298 Subseq Hosp Care Lvl 1 Diagnoses Acute diverticulitis K57.92
[2020-07-24] MEDS ORDERED: CIPROFLOXACIN 500 MG TAB PO SCH (11:00)
[2020-07-24 11:46] LABS: Creatinine Clr Calc Pharmacy 82.5 ml/min; Est GFR (African American) 94.6; Est GFR (Non-African American) 81.6
--- NOTE | 2020-07-24 13:16 | Discharge Summary ---
Date of Service July 24, 2020 Admission HPI Per Admitting Provider History of Present Illness Chief Complaint: Abdominal pain x 2 days. Primary Care Provider: Dr. Morelos This is a 79 year old F who has significant PMH of T2DM, HLD, polyneuropathy, chronic constipation, GERD, Osteoporosis, hx of pancreatitis, hx of breast and ovarian cancer who presents to ED 2/2 to abdominal pain x 2 days. She was seen and examined in ED nahid this morning and dx with acute diverticulitis, pain co ntrolled and given oral antibiotics, augmentin. She has first dose this morning. She went home, slept, woke up and pain returned, had nausea, vomiting and diarrhea. Given sx she returned back to ED. Sx started initially 2 days ago. She has been constipated and follows GI Dr. Figueroa for that. She intermittently gets constipation. She did have elevated temp of 99.8 yesterday and chills this morning. She has hx of diverticulitis one year ago and did not require hospitalization. Pain currently b/l lower abdomen, constant, worse with movement and touch, better with rest and feels like, "burn." "Feels like i'm sitting on a corn cob when I sit down. She denies dizziness, lightheaded, syncope, chest pain, sob, cough, uri sx, dysuria, increased urg/freq with urination. Overall poor appetite and inability to tolerate anything oral. Last colonoscopy 2019. Of significance recent ingrown toe nail in which she was on 2 antibiotics keflex/bactrim. This has since resolved. In ED she was hemodynamically stable, no signs of sirs/sepsis. CT a/p done early this a.m. revealed acute sigmoid diverticulitis. KUB this afternoon shows no free air. She does have leukocytosis, 14.27k. Principal Diagnosis ACUTE DIVERTICULITIS,FAILED OUTPT TREATMENT Discharge Exam Physical exam: General: No acute distress, alert awake oriented x3 HEENT: PERRLA, EOMI, Heart: Regular S1-S2, no carotid bruit, no JVD, no lower extremity edema Lungs: Clear to auscultate, no wheeze or rales Abdomen: Soft nontender, no organomegaly Extremity: No cyanosis, no deformity, normal strength 5 out of 5 with upper and lower Neuro: No focal neurological deficit normal speech, normal visual field, Motor strength : normal both upper and lower extremity, sensation intact Psych: Alert awake oriented x3, normal affect Discharge Data Allergies Allergy/AdvReac Type Severity Reaction Status Date / Time Proton Pump Inhibitors Allergy Severe Chest Pain Verified 01/22/20 13:20 cimetidine Allergy Intermediate dizziness Verified 01/22/20 13:20 alendronate sodium Allergy Unknown Verified 01/22/20 13:20 [From Fosamax] carbamazepine AdvReac Severe pancreatiti Verified 01/22/20 13:20 s morphine AdvReac Intermediate SEVERE PAIN Verified 01/22/20 13:20 prednisone AdvReac Intermediate "I heard Verified 01/22/20 13:20 voices and I felt crappy". Oazfkob-Swn-Ooo Reductase AdvReac Intermediate MUSCLE Verified 01/22/20 13:20 Inhibitor WEAKNESS tramadol AdvReac Intermediate SOB, CHEST Verified 01/22/20 13:20 PAIN epinephrine AdvReac Mild DIZZINESS Verified 01/22/20 13:20 Ibandronic Acid AdvReac Mild GERD Uncoded 01/22/20 13:20 Consultations 07/21/20 13:47 ED Decision to Admit Stat 07/21/20 13:54 Consult General Surgery Routine Hospital Course (1) Acute diverticulitis: (2) Abdominal pain: This is a 79 year old F who has significant PMH of T2DM, HLD, polyneuropathy, chronic constipation, GERD, Osteoporosis, hx of pancreatitis, hx of breast and ovarian cancer who presents to ED 2/2 to abdominal pain x 2 day. Acute sigmoid diverticulitis, failed outpt treatment Clinically patient much improved, no abdominal pain no nausea, diet advanced to solid, tolerated well Appreciate input from surgery, patient is stable to be discharged home with 7 more days of Cipro and Flagyl Will be followed up with GI for colonoscopy in 6-8 weeks after acute episode has subsided (3) T2DM (type 2 diabetes mellitus): Hemoglobin A1c of 6.3.. metformin resumed on discharge (4) GERD (gastroesophageal reflux disease): continue PPI, prn carafate Hx of breast ca/ovarian ca/melanoma in remission Hx of recurrent pancreatitis pt is on creon w/ meals (5) DVT prophylaxis: SQ Lovenox Disposition, stable to be discharged home today Total Time Total Time Spent Total Time Spent (In Minutes): 35 minutes Total Time Includes: Examination of the Patient and Discharge Planning Discharge Plan Discharge Items Patient Disposition: Home - Self-Care Reason For Visit: ACUTE DIVERTICULITIS,FAILED OUTPT TREATMENT Discharge Diagnosis: Acute diverticulitis Activity: Resume your previous activity Non-emergency contact: Primary Care Provider Call non-emergency contact if: you have any medication questions Follow-up/Referrals: Blair Figueroa DO [Physician] - Atif Julian DO [Outside Practitioners] - 07/29/20 11:20 am (Date & Time 07/29/2020 11:20 AM Provider Atif Julian DO Department [facility] ) Diet: Low Fiber Addtl Attending Provider Instructions: Please take all medications as instructed on discharge list below. GI follow-up with Dr. Figueroa in 6-8 weeks for colonoscopy Please call if you have any questions or problems. You can reach a [facility] hospitalist on duty at [facility] 24 hours a day by calling [phone] Addtl Field Superintendent Provider Instructions: PLEASE TAKE PROBIOTICS ( OVER THE COUNTER ) WHILE TAKING ANTIBIOTICS TO PREVENT DIARRHEA /LOOSE STOOL Pending Studies at Discharge: No Stand-Alone Forms: [facility], Smoking Cessation Medications and DC Order Prescriptions: New ciprofloxacin HCl 500 mg Tablet 500 mg PO BID 7 Days Qty: 14 RF: 0 metronidazole 500 mg Tablet 500 mg PO TID 7 Days Qty: 21 RF: 0 Continued aspirin 325 mg tablet 325 mg PO DAILY PRN (Reason: pain) RF: 0 ascorbate calcium (vitamin C) 500 mg tablet 1 gm PO BID RF: 0 biotin 2,500 mcg capsule 2,500 mcg PO QAM RF: 0 omeprazole-sodium bicarbonate [Zegerid] 20-1.1 mg-gram capsule 1 cap PO DAILY RF: 0 cod liver oil Oil 15 ml PO 3XWK RF: 0 zinc 50 mg Tablet 50 mg PO QAM RF: 0 vitamin K2 40 mcg Tablet 40 mcg PO QAM RF: 0 magnesium oxide 400 mg magnesium Tablet 400 mg PO HS RF: 0 Triboron 1 tab PO QAM RF: 0 riboflavin (vitamin B2) [Vitamin B-2] 100 mg Tablet 100 mg PO DAILY PRN (Reason: mouth sores) RF: 0 milk thistle 500 mg Capsule 500 mg PO QAM RF: 0 selenium 200 mcg Tablet 200 mcg PO QAM RF: 0 folic acid 0.8 mg Capsule 0.8 mg PO QAM RF: 0 coQ10 (ubiquinol) 200 mg Capsule 200 mg PO QAM RF: 0 Anders's Yeast 680 mg Tablet 680 mg PO QAM RF: 0 melatonin 1 mg Tablet 1 mg PO HS RF: 0 Saccharomyces boulardii [Probiotic (S.boulardii)] 250 mg Capsule 250 mg PO HS RF: 0 Collagen Plus Vitamin C 125-740 mg Capsule 1 cap PO DAILY RF: 0 cyanocobalamin (vitamin B-12) [Vitamin B-12] 2,500 mcg Tablet, Sublingual 2,500 mcg SUBLINGUAL WK RF: 0 polyethylene glycol 3350 [Miralax] 17 gram Powder In Packet 17 g PO DAILY PRN (Reason: Constipation) RF: 0 ondansetron HCl 4 mg tablet 4 mg PO Q6H PRN (Reason: Nausea) RF: 0 vitamin B complex Tablet 1 tab PO QAM RF: 0 albuterol sulfate [Ventolin HFA] 90 mcg/actuation Hfa Aerosol Inhaler 2 puff INHALATION Q6H PRN (Reason: Shortness Of Breath Or Wheezing) RF: 0 cholecalciferol (vitamin D3) [Vitamin D3] 1,000 unit Capsule 2,000 unit PO QAM RF: 0 bisacodyl 5 mg tablet 5 mg PO HS PRN (Reason: Constipation) RF: 0 metformin 500 mg Tablet 500 mg PO DAILY RF: 0 sucralfate 1 gram Tablet 1 g PO ACHS PRN (Reason: Abdominal Pain) RF: 0 azelastine 137 mcg (0.1 %) Aerosol,Woody 1 spray INTRANASAL BID RF: 0 Creon 6,000-19,000 -30,000 unit Capsule,Delayed Release(Dr/Ec) 1 cap PO TIDM RF: 0 Discontinued amoxicillin-pot clavulanate [Augmentin] 875-125 mg tablet 1 tab PO BID Qty: 14 RF: 0 Discharge Orders: Discharge Order (Routine); Ordered 07/24/20 Ordered By: Parul Mccarthy/Other Patient Handouts: Low-Fiber Diet, Managing Type 2 Diabetes, Managing Diabetes: The A1C Test, Metronidazole tablets or capsules, Ciprofloxacin tablets Admission Data Admit Date/Time: 07/21/20 13:54 Attending Provider: Parul Whiteside Admit Provider: Rajendra Turner Primary Care Provider: PCP,NO Other Providers: Chuy Paez ; Rajendra Turner ; Oralia Wang Other Interventions: Discharge Summary Assessment (RN) Last Done: 07/24/20 13:18
[2020-07-24] MEDS ORDERED: metroNIDAZOLE 500 MG TAB PO SCH (14:00)
--- NOTE | 2020-07-25 09:35 | Communication Note ---
Date of Service: July 25, 2020 Patient reached out with a concern of possible side effect from antibiotics She was discharged yesterday with p.o. ciprofloxacin and Flagyl for acute dive rticulitis She says after taking her metronidazole in afternoon, felt worse with abdominal bloating distention nausea, lower abdominal discomfort. No vomiting, Also worried that she gained almost 10 pound weight after discharge from hospital. today Morning she feels much better, No rash no shortness of breath, Patient is offered to change the antibiotic to Augmentin,(tolerated IV Zosyn during hospital stay without any side effects) Patient refused, as she is feeling better, wants to continue with both Flagyl and ciprofloxacin Updated that GI symptoms with nausea, abdominal bloating, metallic taste is common with metronidazole Asked to take it with food, and drink plenty of fluids afterward can utilize as needed Zofran for nausea -Increased weight gain possibly secondary to IV fluids and antibiotics she received during this hospital stay With current normal kidney function, should be able to urinate out excess fluids Asked to contact her family physician if she develops lower extremity swelling or shortness of breath: May need Lasix She wanted to have an appointment/hospital follow-up with her family physician tomorrow Appointment will be rescheduled Parul Whiteside MD
== END 2020-07-24 14:55 | disposition home or self-care (01) | DRG 392 ==
LOC: ED 10:59 → 3W 13:54 → SUATTDRO 13:54 → 3W 15:57

== ENCOUNTER 2021-10-16 22:46 | Observation (INO) ==
[2021-10-16] MEDS ORDERED: MECLIZINE HCL 25 MG TAB PO STA (23:04)
[2021-10-16 23:24] LABS: Basophils # (auto) 0.09 K/uL (0-0.2); Eosinophils # (auto) 0.37 K/uL (0-0.50); Eosinophils % (auto) 4.1 %; Hematocrit (blood only) 35.6 % (34.1-44.9); Immature Granulocytes # (auto) 0.03 K/uL (0.00-0.02); Immature Granulocytes % (auto) 0.3 %; Lymphocytes # (auto) 3.67 K/uL (1.2-3.4); Lymphocytes % (auto) 40.3 %; Mean Corpuscular Hgb Conc 33.7 g/dL (32.0-36.0); Monocytes # (auto) 0.55 K/uL (0.24-0.82); Neutrophils % (auto) 48.3 %; Platelet Count 265 K/uL (130-400); RDW Standard Deviation 40.6 fL (36.4-46.3); Red Blood Count 3.87 M/uL (3.93-5.22); White Blood Count 9.11 K/ul (4.8-10.8)
--- NOTE | 2021-10-16 23:27 | Emergency Department Note ---
History of Present Illness General Chief complaint: Head Pain Stated complaint: HEADACHE, VISION PROBLEMS Time Seen by Provider: 10/16/21 22:56 History of Present Illness Maximum Pain Intensity: 5 This 81-year-old presents to the ER complaining of headache dizziness and feeling off balance for the past few hours that occurred earlier in the week also Location: Generalized Quality: Weak and dizzy Severity: Moderate Duration: Tonight Timing: Tonight Context: Patient was concerned and came in Modifying factors: better with rest; worse with activity patient states she is having hard time focusing and feels off balance dizzy lightheaded with a headache. No prior history of vertigo. She states earlier in the week had a similar episode. Patient denies chest pain, dyspnea, numbness, tingling, loss of vision, localized weakness. Home Medications Medication Instructions Recorded Confirmed Type cyanocobalamin (vitamin B-12) 2,500 mcg sublingual DAILY 01/30/19 10/17/21 History 2,500 mcg sublingual tablet (Vitamin B-12) aspirin 325 mg tablet 325 mg PO TID PRN pain 05/31/19 10/17/21 History artificial 1 drp ophthalmic (eye) QID PRN Dry 04/12/21 10/17/21 History tears(cticser-ajernvpm-zjbfdio) Eyes 0.1 %-0.3 %-0.2 % eye drops lidocaine HCl 2 % mucosal solution 5 ml PO QID PRN Acid Reflux 04/12/21 10/17/21 History (Lidocaine Viscous) lorazepam 0.5 mg tablet 0.5 mg PO TID PRN Anxiety 04/12/21 10/17/21 History melatonin 1 mg tablet 1 mg PO HS PRN Insomnia 04/12/21 10/17/21 History mupirocin calcium 2 % nasal 1 ea topical BID PRN Skin 04/12/21 10/17/21 History ointment Irritation polyethylene glycol 3350 17 17 g PO DAILY 04/12/21 10/17/21 History gram/dose oral powder albuterol sulfate 90 mcg/actuation 2 puff inhalation QID PRN 10/16/21 10/17/21 History aerosol inhaler (ProAir HFA) Shortness Of Breath Or Wheezing ascorbic acid (vitamin C) 500 mg 500 mg PO DAILY 10/16/21 10/17/21 History tablet (Vitamin C) chlorpheniramine maleate 4 mg 4 mg PO DIRECTED PRN NEEDED 10/16/21 10/17/21 History tablet PER [facility] cholecalciferol (vitamin D3) 125 125 mcg PO DAILY 10/16/21 10/17/21 History mcg (5,000 unit) tablet (Vitamin D3) geriatric qkamtlki-stip-trvt 1 tab PO DAILY 10/16/21 10/17/21 History glucosamine-chondroitin 750 mg-600 1 tab PO BID 10/16/21 10/17/21 History mg tablet omega-3 240 nk-bkb-uox-cod liver 1 cap PO DAILY 10/16/21 10/17/21 History oil 1,000 mg-vit A-vit D3 capsule (cod liver oil) phenazopyridine 200 mg tablet 200 mg PO TID PRN Pain 10/16/21 10/17/21 History (Pyridium) sucralfate 1 gram tablet (Carafate) 1 g PO ACHS PRN ABD PAIN 10/16/21 10/17/21 History triamcinolone acetonide 0.05 % 1 applic topical BID PRN Skin 10/16/21 10/17/21 History topical ointment Irritation vitamin B complex 1 tab PO DAILY 10/16/21 10/17/21 History zolpidem 5 mg tablet 5 mg PO HS PRN Sleep 10/16/21 10/17/21 History Saccharomyces boulardii 250 mg 250 mg PO DAILY 10/17/21 10/17/21 History capsule (Florastor) acetaminophen 500 mg tablet 500 mg PO Q4H PRN Pain 10/17/21 10/17/21 History (Tylenol Extra Strength) acyclovir 5 % topical cream 1 applic topical BID 10/17/21 10/17/21 History baclofen 10 mg tablet 10 mg PO TID PRN MUSCLE SPASMS 10/17/21 10/17/21 History bisacodyl 5 mg tablet,delayed 5 mg PO DAILY PRN Constipation 10/17/21 10/17/21 History release (Dulcolax (bisacodyl)) clindamycin phosphate 1 % topical 1 applic topical BID PRN AFFECTED 10/17/21 10/17/21 History solution AREA flaxseed 1 ea PO DAILY 10/17/21 10/17/21 History fluticasone propionate 50 2 spray intranasal DAILY 10/17/21 10/17/21 History mcg/actuation nasal spray,suspension yxyrfi-aejldjzu-vkwwoud 1 cap PO QID PRN HEAVY MEALS 10/17/21 10/17/21 History 6,000-19,000-30,000 unit capsule,delayed rel (Creon) magnesium oxide 500 mg tablet 500 mg PO DAILY 10/17/21 10/17/21 History metformin 500 mg tablet,extended 500 mg PO QAM 10/17/21 10/17/21 History release 24 hr metronidazole 0.75 % topical gel 1 applic topical BID 10/17/21 10/17/21 History omeprazole 20 mg-sodium 1 cap PO DAILY PRN 10/17/21 10/17/21 History bicarbonate 1.1 gram capsule HEARTBURN/INDIGESTION (Zegerid OTC) ondansetron HCl 4 mg tablet 4 - 8 mg PO Q8H PRN NAUSEA/VOMITING 10/17/21 10/17/21 History oxycodone 5 mg tablet 5 mg PO Q4H PRN pain 10/17/21 10/17/21 History soybean, fermented 50 mg capsule 100 mg PO DAILY 10/17/21 10/17/21 History (Nattokinase) ursodiol 300 mg capsule 300 mg PO BID 10/17/21 10/17/21 History Allergies Allergy/AdvReac Type Severity Reaction Status Date / Time Proton Pump Inhibitors Allergy Severe Chest Pain Verified 10/16/21 23:46 cimetidine Allergy Intermediate HALLUCINATI Verified 10/16/21 23:46 ONS citalopram [From Celexa] Allergy Unknown UNKNOWN--PER Verified 10/16/21 23:46 [facility] MED LIST carbamazepine AdvReac Severe pancreatiti Verified 10/16/21 23:46 s tramadol AdvReac Severe SOB, CHEST Verified 10/16/21 23:46 PAIN alendronate sodium AdvReac Intermediate Chest Pain Verified 10/16/21 23:46 [From Fosamax] ciprofloxacin AdvReac Intermediate DOES NOT Verified 10/16/21 23:46 TOLERATE epinephrine AdvReac Intermediate Tachycardia Verified 10/16/21 23:46 lidocaine AdvReac Intermediate Tachycardia Verified 10/16/21 23:46 metronidazole [From Flagyl] AdvReac Intermediate Abdominal Verified 10/16/21 23:46 Pain prednisone AdvReac Intermediate "I heard Verified 10/16/21 23:46 voices and I felt crappy". propylene glycol AdvReac Intermediate BURNING Verified 10/16/21 23:46 SENSATION IN VAGINAL AREA sertraline AdvReac Intermediate PSYCH Verified 10/16/21 23:46 COMPLICATIONS simvastatin AdvReac Intermediate Chest Pain Verified 10/16/21 23:46 Kgblkfn-DXC-MkG Reductase AdvReac Intermediate MUSCLE Verified 10/16/21 23:46 Inhibitor WEAKNESS [Oerbwwb-Mqz-Okw Reductase Inhibitor] valacyclovir [From Valtrex] AdvReac Intermediate RUQ ABD Verified 10/16/21 23:46 PAIN Ibandronic Acid AdvReac Intermediate GERD Uncoded 10/16/21 23:46 Past Med/Surg History Medical History Actinic keratosis Anxiety Chemotherapy-induced neuropathy Degenerative disc disease Dysplastic nevus GERD (gastroesophageal reflux disease) History of left breast cancer 1991--sx/chemo/radiation History of ovarian cancer diagnosed 1991--pt states it was "a 00 rating"--found after hysterectomy 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) Pancreatitis Prediabetes T2DM (type 2 diabetes mellitus) Surgical History H/O oophorectomy History of appendectomy History of basal cell carcinoma back, face tx with artemio 2000 History of bilateral breast reduction surgery History of bilateral cataract extraction History of blepharoplasty bilt eyes, upper and lower History of breast biopsy malignant History of cholecystectomy History of colonoscopy History of dilatation and curettage History of ERCP History of hysterectomy d/t fibroids History of open reduction and internal fixation (ORIF) procedure right tibia fx--hardware in place History of open reduction and internal fixation (ORIF) procedure left wrist--hardware removed History of oral surgery gum sx History of parathyroidectomy right side--benign tumor History of root canal procedure History of thumb surgery right, tissue repair History of tonsillectomy and adenoidectomy History of wisdom tooth extraction Melanoma stage 1A, negative SLN right upper back 1999 stage 1A 0.2 mm superficial spreading ? location 2017 Dr. Toro Family History Mother Family history of diabetes mellitus Family hx colonic polyps Hearing loss Hypertension Stroke Heart disease Allergies Sister Family history of diabetes mellitus Family hx colonic polyps Hypertension Cancer Heart disease Allergies Brother Cancer Other No family history of adverse response to anesthesia No family history of bleeding disorder No significant family history Denies family history of Asthma Social History Smoking Status: Never smoker Tobacco Type: Cigarettes Second Hand Exposure: No; Hx Alcohol Use: No Hx Substance Use: No Preferred Language: Marshallese Communication Ability: Effective Independent Beauty Consultant Required: No Beliefs That Will Affect Care: None marital status: Current Living Situation: Spouse current occupational status: retired Other Information That Helps Us Care for You: No 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 Safe at Home: Yes Safety Concerns: Feels Safe At This Time Assistive Devices: Cane and Walker Review of Systems A total of 10 systems reviewed and were otherwise negative Physical Exam Vital Signs Vital Signs - 24 hr 10/16/21 22:49 10/17/21 00:04 10/17/21 01:01 Temperature 36.1 C L Temperature Source Temporal Artery Scan Pulse Rate 75 Pulse Rate [Finger] 68 64 Pulse Rhythm Regular Pulse Rhythm [Finger] Regular Regular Pulse Strength Normal Pulse Strength [Finger] Normal Normal Respiratory Rate 20 18 16 Respiratory Effort / Characteristics Non-Labored Spontaneous Non-Labored Spontaneous Non-Labored Spontaneous Respiratory Depth Normal Normal Normal Respiratory Pattern Regular Blood Pressure 136/79 Blood Pressure [Right Arm] 110/65 103/59 L Blood Pressure Mean 98 Blood Pressure Mean [Right Arm] 80 73 Blood Pressure Position Sitting Blood Pressure Position [Right Arm] Sitting Pulse Oximetry 96 97 96 Oxygen Delivery Method Room Air Room Air Room Air Sepsis Recent Fever Within 48 Hours No Sepsis New/Unexplained Change in Mental Status No Sepsis Action Taken by Nursing No Action Required VITALS: Vitals are noted on the nurse's note and reviewed by myself. Vital signs stable. GENERAL: Pleasant female following commands, in no acute distress, nondiaphoret ic, well-developed well-nourished. SKIN: The skin was without rashes, erythema, edema, or bruising. There is no tenting of the skin. Capillary reflex less than 2 seconds. HEAD: Normocephalic atraumatic. EARS: External auditory canals clear, EYES: Pupils equal round and reactive to light and accommodation. Conjunctivae without injection, sclerae without icterus. Extraocular movements intact. No nystagmus NOSE: Patent, turbinates without inflammation or discharge. MOUTH: Mucous membranes moist. Pharynx without erythema or exudate. Uvula midline. Airway patent. Tongue does not deviate. NECK: Supple without nuchal rigidity. No lymphadenopathy. No thyromegaly. Cervical spine is nontender. No JVD. HEART: Regular rate and rhythm LUNGS: Clear to auscultation bilaterally without wheezes, rales or rhonchi. No retractions or accessory muscle use. ABDOMEN: Positive bowel sounds x 4. Normal tympanic percussion. Soft, nontender, without masses or organomegaly. Renner sign negative. No guarding or rebound tenderness. No CVA tenderness MUSCULOSKELETAL: No muscle atrophy, erythema, or edema noted. 5 out of 5 strength throughout NEURO: Patient was alert and oriented to person place and time. Normal sensation to light and sharp touch. No focal neurological deficits. Cranial nerves II through XII grossly intact. No pronator drift. Cerebellar exam intact. Course Administered Medications Discontinued Medications Acyclovir (Acyclovir 5% Oint 15 Gm Tube) 1 appln EXT BID JUAN DIEGO Stop: 10/27/21 08:59 Last Admin: 10/17/21 08:28 Dose: 1 appln Documented By: JOVANNY Ascorbic Acid (Ascorbic Acid 500 Mg Tab) 500 mg PO DAILY JUAN DIEGO Stop: 11/16/21 08:59 Last Admin: 10/17/21 08:27 Dose: 500 mg Documented By: JOVANNY Cyanocobalamin (Cyanocobalamin (B-12) 2,500 Mcg Tablet) 2,500 mcg SL DAILY JUAN DIEGO Stop: 11/16/21 08:59 Last Admin: 10/17/21 08:27 Dose: 2,500 mcg Documented By: JOVANNY Fluticasone Propionate (Fluticasone Propionate Na Spr 16 Gm Btl) 2 sprays AKHIL DAILY JUAN DIEGO Stop: 11/16/21 08:59 Last Admin: 10/17/21 08:28 Dose: 2 sprays Documented By: JOVANNY Acetaminophen (Ofirmev) 1,000 mg in 100 mls @ 400 mls/hr IV NOW STA Stop: 10/17/21 02:10 Last Infusion: 10/17/21 02:42 Dose: 0 mls/hr Documented By: Admin: 10/17/21 02:10 Dose: 400 mls/hr Documented By: PETER Sodium Chloride (Nss 1000ml) 1,000 mls @ 80 mls/hr IV .[id number] JUAN DIEGO Stop: 10/17/21 17:58 Last Infusion: 10/17/21 17:19 Dose: 0 mls/hr Documented By: Infusion: 10/17/21 17:19 Dose: 0 mls/hr Documented By: GECristina Admin: 10/17/21 05:55 Dose: 80 mls/hr Documented By: ALEAH Insulin Aspart (Insulin Aspart Per Unit) 0 units SC ACHS JUAN DIEGO Stop: 11/16/21 07:29 Last Admin: 10/17/21 16:48 Dose: Not Given Documented By: Admin: 10/17/21 12:37 Dose: Not Given Documented By: Admin: 10/17/21 08:33 Dose: Not Given Documented By: JOVANNY Ioversol (Optiray 320 125ml) 125 ml IV ONCE ONE Stop: 10/17/21 00:40 Last Admin: 10/17/21 00:40 Dose: 94 ml Documented By: JONATHON Magnesium Oxide (Magnesium Oxide 400 Mg Tab) 400 mg PO DAILY JUAN DIEGO Stop: 11/16/21 08:59 Last Admin: 10/17/21 08:27 Dose: 400 mg Documented By: JOVANNY Meclizine HCl (Meclizine Hcl 25 Mg Tab) 25 mg PO NOW STA Stop: 10/16/21 23:05 Last Admin: 10/16/21 23:19 Dose: 25 mg Documented By: PETER Metoclopramide HCl (Metoclopramide Hcl Inj 5 Mg/Ml 2 Ml Vial) 5 mg IV ONE ONE Stop: 10/17/21 01:57 Last Admin: 10/17/21 02:13 Dose: Not Given Documented By: PETER Miscellaneous (Zegerid Otc - Order Awaiting Action) 1 each N/A QS [facility] Stop: 11/16/21 07:59 Last Admin: 10/17/21 16:25 Dose: Not Given Documented By: Admin: 10/17/21 08:29 Dose: Not Given Documented By: JOVANNY Multivitamins/Minerals (Cerovite Adv Formula Tab) 1 tab PO DAILY JUAN DIEGO Stop: 11/16/21 08:59 Last Admin: 10/17/21 08:27 Dose: 1 tab Documented By: JOVANNY Polyethylene Glycol (Polyethylene (Miralax) 17 Gm Pack) 17 gm PO DAILY PRN PRN Reason: Constipation Stop: 11/16/21 05:28 Last Admin: 10/17/21 05:55 Dose: 17 gm Documented By: ALEAH Saccharomyces Boulardii (Saccharomyces Boulardii 250 Mg Cap) 250 mg PO DAILY JUAN DIEGO Stop: 11/16/21 08:59 Last Admin: 10/17/21 08:27 Dose: 250 mg Documented By: BT Vitamin D (Cholecalciferol 5,000 Units 125 Mcg Tab) 5,000 units PO DAILY JUAN DIEGO Stop: 11/16/21 08:59 Last Admin: 10/17/21 08:28 Dose: 5,000 units Documented By: JOVANNY Medical Decision Making Medical Records Attestation: I reviewed the patient's medical records. Home Medications Current Medication List: was personally reviewed by me Laboratory Data Attestation: I reviewed the patient's lab results. Result diagrams: 10/17/21 06:59 10/17/21 06:59 Lab Results 10/16/21 10/16/21 10/16/21 Range/Units 23:15 23:15 23:15 WBC 9.11 (4.8-10.8) K/ul RBC 3.87 L (3.93-5.22) M/uL Hgb 12.0 (12.0-16.0) g/dl Hct 35.6 (34.1-44.9) % MCV 92.0 (80.0-100.0) fL MCH 31.0 (25.0-34.0) pg MCHC 33.7 (32.0-36.0) g/dL RDW Std Deviation 40.6 (36.4-46.3) fL RDW Coeff of Mack 12.0 (11.5-14.5) % Plt Count 265 (130-400) K/uL MPV 10.0 (9.4-12.3) fL Immature Gran % (Auto) 0.3 % Neut % (Auto) 48.3 % Lymph % (Auto) 40.3 % [place] % (Auto) 6.0 % Eos % (Auto) 4.1 % Baso % (Auto) 1.0 % Neut # (Auto) 4.40 (1.4-6.5) K/uL Lymph # (Auto) 3.67 H (1.2-3.4) K/uL [place] # (Auto) 0.55 (0.24-0.82) K/uL Eos # (Auto) 0.37 (0-0.50) K/uL Baso # (Auto) 0.09 (0-0.2) K/uL Immature Gran # (Auto) 0.03 H (0.00-0.02) K/uL PT 10.4 (9.0-12.0) Seconds INR 1.0 (0.9-1.1) APTT 24.8 (21.0-31.0) Seconds PTT Ratio 0.9 Sodium 138 (136-145) mmol/L Potassium 3.9 (3.5-5.1) mmol/L Chloride 104 (98-107) mmol/L Carbon Dioxide 25 (21-32) mmol/L Anion Gap 9 (3-11) BUN 26 H (6-23) mg/dl Creatinine 0.88 (0.6-1.2) mg/dl Est Cr Clr Drug Dosing 62.5 ml/min Est GFR ( Amer) 71.9 ml/min Est GFR (Non-Af Amer) 62.1 ml/min BUN/Creatinine Ratio 29.5 H (10-20) Glucose 175 H (70-99(Fasting)) mg/dl Calcium 9.5 (8.5-10.1) mg/dl Magnesium 2.0 (1.7-2.4) mg/dl Total Bilirubin 0.3 (0.2-1.0) mg/dl AST 20 (13-39) U/L ALT 16 (7-52) U/L Alkaline Phosphatase 52 (34-104) U/L Troponin I High Sens 4.0 (0-14) pg/ml Total Protein 7.4 (6.0-8.3) gm/dl Albumin 4.2 (3.4-5.0) gm/dl Globulin 3.2 (2.5-4.0) gm/dl Albumin/Globulin Ratio 1.3 (0.9-2) SARS-CoV-2, RNA, NAAT (NEGATIVE) 10/17/21 Range/Units 02:12 WBC (4.8-10.8) K/ul RBC (3.93-5.22) M/uL Hgb (12.0-16.0) g/dl Hct (34.1-44.9) % MCV (80.0-100.0) fL MCH (25.0-34.0) pg MCHC (32.0-36.0) g/dL RDW Std Deviation (36.4-46.3) fL RDW Coeff of Mack (11.5-14.5) % Plt Count (130-400) K/uL MPV (9.4-12.3) fL Immature Gran % (Auto) % Neut % (Auto) % Lymph % (Auto) % [place] % (Auto) % Eos % (Auto) % Baso % (Auto) % Neut # (Auto) (1.4-6.5) K/uL Lymph # (Auto) (1.2-3.4) K/uL [place] # (Auto) (0.24-0.82) K/uL Eos # (Auto) (0-0.50) K/uL Baso # (Auto) (0-0.2) K/uL Immature Gran # (Auto) (0.00-0.02) K/uL PT (9.0-12.0) Seconds INR (0.9-1.1) APTT (21.0-31.0) Seconds PTT Ratio Sodium (136-145) mmol/L Potassium (3.5-5.1) mmol/L Chloride (98-107) mmol/L Carbon Dioxide (21-32) mmol/L Anion Gap (3-11) BUN (6-23) mg/dl Creatinine (0.6-1.2) mg/dl Est Cr Clr Drug Dosing ml/min Est GFR ( Amer) ml/min Est GFR (Non-Af Amer) ml/min BUN/Creatinine Ratio (10-20) Glucose (70-99(Fasting)) mg/dl Calcium (8.5-10.1) mg/dl Magnesium (1.7-2.4) mg/dl Total Bilirubin (0.2-1.0) mg/dl AST (13-39) U/L ALT (7-52) U/L Alkaline Phosphatase (34-104) U/L Troponin I High Sens (0-14) pg/ml Total Protein (6.0-8.3) gm/dl Albumin (3.4-5.0) gm/dl Globulin (2.5-4.0) gm/dl Albumin/Globulin Ratio (0.9-2) SARS-CoV-2, RNA, NAAT NEGATIVE (NEGATIVE) Imaging Data Attestation: I personally reviewed and interpreted this imaging study as follows: MDM Narrative Prior records/ancillary studies reviewed. Triage Nursing notes reviewed. The patient's history was concerning for dizziness and vertigo. Differential diagnosis: Etiologies such as benign positional vertigo, dehydration, hypovolemia, anemia, tumor, infection, hypoglycemia, electrolyte abnormalities, cardiac sources, intracerebral event, toxicologic, neurologic, as well as others were entertained. Physical examination: As above. No pathologic nystagmus. ER treatment provided: An order was placed for continuous cardiac monitoring. The monitor shows a rate of 60-100 with a sinus rhythm. IV hydration with normal saline Meclizine On reassessment the patient felt well. Diagnostics interpretation by me: ECG: Ordered for weakness EKG: Normal sinus, normal intervals, no acute ST-T wave changes. Impression normal sinus rhythm interpreted by myself I think arrhythmia is unlikely. EKG shows normal sinus rhythm with no interval abnormalities such as QT prolongation or WPW. There are no findings to suggest Brugada syndrome. Cardiac monitoring in the emergency department reveals no tachycardic or bradycardic dysrhythmia. Hypertrophic cardiomyopathy was cons idered but there are no clear historical elements pointing toward this. EKG is not suggestive. The QRS voltage is not extremely large and there are no suggestive Q waves. The labs revealed no worrisome leukocytosis,Mild hyperglycemia without DKA Preliminary Findings Only See Final Report For Complete Findings CT HEAD: No evidence of acute intracranial pathology. Mild nonspecific white matter changes. Bilateral lens replacements. Comparison made to prior head CT from [facility] 2021. Radiologist: Edilia Cormier MD Preliminary Findings Only See Final Report For Complete Findings CTA NECK: Negative CT angiogram of the neck. Multiple thyroid nodules. No comparisons. Radiologist: Edilia Cormier MD Study ready at 01:05 and initial results transmitted at 01:38 CTA HEAD: Negative CT angiogram of the head. No comparisons. Radiologist: Edilia Cormier MD Study ready at 01:05 and initial results transmitted at 01:39 Consultation: A consultation was placed with the hospitalist. The case was discussed and diagnostics were reviewed. The patient was evaluated in the ER for further treatment. Exam and history seem consistent with dizziness. Patient was still dizzy after the meclizine. She felt off balance. She will be admitted for further work-up. Patient is agreeable. By the evaluation outlined above emergent etiologies such as infection, hypoglycemia, electrolyte abnormalities, cardiac sources, intracerebral event, toxicologic, as well as others were deemed relatively unlikely. The pt informed about the findings as listed above. All questions were answered and pleased with the treatment. The chart was completed utilizing [employer] Speech voice recognition software. Grammatical errors, random word insertions, pronoun errors, and incomplete sentences are an occassional consequence of this system due to software limitations, ambient noise, and hardware issues. Any formal questions or concerns about the content, text, or information contained within the body of this dictation should be directly addressed to the physician biology research assistant for clarification. Impression & Plan Dizziness, Headache Discharge Plan Visit Data Chief Complaint: Head Pain Stated Complaint: HEADACHE, VISION PROBLEMS ED Provider: Dakota Marie ED Midlevel Provider: Mary Segal Discharge Problem: Dizziness, Headache Patient Disposition: Admitted As Inpatient Condition: Good Discharge Instructions Interventions: ED Discharge Assessment Last Done: 10/17/21 04:44
[2021-10-16 23:38] LABS: Partial Thromboplastin Ratio 0.9; Partial Thromboplastin Time 24.8 Seconds (21.0-31.0); Prothrombin Time 10.4 Seconds (9.0-12.0)
[2021-10-16 23:57] LABS: Albumin Globulin Ratio 1.3 (0.9-2); Albumin Level 4.2 gm/dl (3.4-5.0); BUN Creatinine Ratio 29.5 (10-20); Bilirubin,Total 0.3 mg/dl (0.2-1.0); Calcium 9.5 mg/dl (8.5-10.1); Creatinine Clr Calc Pharmacy 62.5 ml/min; Est GFR (African American) 71.9 ml/min; Est GFR (Non-African American) 62.1 ml/min; Globulin 3.2 gm/dl (2.5-4.0); Potassium 3.9 mmol/L (3.5-5.1); Total Protein 7.4 gm/dl (6.0-8.3)
[2021-10-17] MEDS ORDERED: OPTIRAY 320 125ml IV ONE (00:39)
--- NOTE | 2021-10-17 01:54 | Emergency Department Note ---
ED Visit Note I have personally evaluated this patient examined her and reviewed the pertinent labs and data. I have discussed the case with Whitney Segal, the ph ysician respiratory therapy assistant and agree with the plan. Please refer to the PA note. Patient episode while driving where she felt dizzy and fell like her vision was off. Her symptoms seem worse with movement it sounds more like a peripheral vertigo however she is 81 and has other risk factors and had extensive work-up here. Neuroimaging thus far was unremarkable with CAT scan and CT of the head neck. She has normal-appearing labs. Despite getting meclizine and treatment here she says she still feels dizzy and off. On my exam she has no neurologic deficits but seems very dizzy with movement in light of this I did recommend we observe her in the hospital get an MRI and further evaluation. .
[2021-10-17] MEDS ORDERED: ACETAMINOPHEN 1,000 MG/100 ML VIAL IV STA (01:56)
[2021-10-17] MEDS ORDERED: METOCLOPRAMIDE HCL INJ 5 MG/ML 2 ML VIAL IV ONE (01:56)
[2021-10-17] MEDS ORDERED: bisacodyL 5 MG TABEC PO PRN (05:29)
[2021-10-17] MEDS ORDERED: POLYETHYLENE (MIRALAX) 17 GM PACK PO PRN (05:29)
[2021-10-17] MEDS ORDERED: ZOLPIDEM TARTRATE 5 MG TAB PO PRN (05:29)
[2021-10-17] MEDS ORDERED: MECLIZINE 12.5 MG TAB PO PRN (05:29)
[2021-10-17] MEDS ORDERED: ACETAMINOPHEN 325 MG TAB PO PRN (05:29)
[2021-10-17] MEDS ORDERED: ONDANSETRON INJ 2 MG/ML 2 ML VIAL IV PRN (05:29)
[2021-10-17] MEDS ORDERED: SODIUM CHLORIDE 0.9% 1000ML 1,000 ML IV SCH (05:29)
[2021-10-17] MEDS ORDERED: ALBUTEROL HFA 8 GM INHALER INH PRN (05:29)
[2021-10-17] MEDS ORDERED: ASPIRIN 325 MG ECTAB PO PRN (05:29)
[2021-10-17] MEDS ORDERED: SUCRALFATE 1 GM TAB PO PRN (05:29)
[2021-10-17] MEDS ORDERED: NITROGLYCERIN SL 0.4 MG/TAB TAB SL PRN (05:29)
[2021-10-17] MEDS ORDERED: LORazepam 0.5 MG TAB PO PRN (05:29)
[2021-10-17] MEDS ORDERED: BACLOFEN 10 MG TAB PO PRN (05:29)
[2021-10-17] MEDS ORDERED: MELATONIN 3 MG TAB PO PRN (05:38)
[2021-10-17] MEDS ORDERED: ARTIFICIAL TEARS OP PRN (05:43)
[2021-10-17] MEDS ORDERED: CARBOHYDRATES FOR HYPOGLYCEMIA PO PRN (05:45)
[2021-10-17] MEDS ORDERED: GLUCOSE 40% GEL 15 GM TUBE PO PRN (05:45)
[2021-10-17] MEDS ORDERED: GLUCOSE 10 TAB/TUBE PO PRN (05:45)
[2021-10-17] MEDS ORDERED: GLUCAGON FOR INJ 1 MG VIAL IM PRN (05:45)
[2021-10-17] MEDS ORDERED: DEXTROSE 50% 50 ML SYRINGE IV PRN (05:45)
[2021-10-17] MEDS ORDERED: PANCREAZE (LIPASE 4,200U) CAP PO PRN (05:58)
--- NOTE | 2021-10-17 07:27 | CT Scan Report ---
CT ANGIOGRAM OF THE NECK CLINICAL HISTORY: Strokelike symptoms. Headache and dizziness. COMPARISON STUDY: CT of the neck dated 05/06/2015. TECHNIQUE: Following the IV administration of 94 of Optiray 320, CT angiogram of the neck was perform ed from the aortic arch to the skull base. Images are reviewed in the axial, sagittal, and coronal pl anes. 3-D MIPS images are created and assessed. IV contrast was administered without complication. Al l measurements were calculated based on NASCET criteria. A dose lowering technique was utilized adhe ring to the principles of ALARA. FINDINGS: Thoracic aorta: There is mild atherosclerotic calcification of the thoracic aorta. Visualized portion s of the thoracic aorta are normal in caliber. The aortic arch demonstrates 4-vessel variant anatomy. Right carotid arterial system: The right common carotid artery is widely patent, as are the right int ernal and external carotid arteries. There is calcified plaque in the carotid bulb. There is tortuosi ty of the distal ICA. Left carotid arterial system: The left common carotid artery is widely patent, as are the left inclusion intern al and external carotid arteries. Mild plaque is noted in the carotid bulb. Vertebral arteries: The vertebral arteries are widely patent bilaterally noting a right-sided dominan ce. The left vertebral artery arises directly from the thoracic aorta. Subclavian arteries: Widely patent bilaterally. Intracranial vasculature: The visualized intracranial vessels at the skull base are patent. The intra cranial left vertebral artery is diminutive. Jugular veins: Widely patent bilaterally. Brain parenchyma: The visualized brain parenchyma the skull base is within normal limits. Lung apices: Partially visualized upper lobe lung parenchyma appears clear. Soft tissues: The visualized pharyngeal soft tissues are normal in appearance noting angiographic pha se technique. The oropharyngeal airway appears widely patent. The thyroid gland is enlarged and heter ogeneous. The salivary glands are normal in appearance. No cervical lymphadenopathy is seen. Skeletal structures: The skeletal structures are osteopenic. The visualized calvarium at the skull ba se appears intact. The imaged cervical spine is maintained noting multilevel spondylosis. No lytic or blastic lesion is seen. Sinuses and mastoids: The mastoid air cells are well pneumatized. The visualized paranasal sinuses ar e clear. IMPRESSION: Unremarkable CT angiogram of the neck. ACT 112: Negative or not required by law. Electronically signed by: Giuseppe Thomas M.D. 10/17/2021 7:25 AM
[2021-10-17 07:29] LABS: Basophils # (auto) 0.09 K/uL (0-0.2); Basophils % (auto) 1.1 %; Eosinophils # (auto) 0.41 K/uL (0-0.50); Eosinophils % (auto) 5.2 %; Hematocrit (blood only) 35.2 % (34.1-44.9); Hemoglobin 11.7 g/dl (12.0-16.0); Immature Granulocytes # (auto) 0.02 K/uL (0.00-0.02); Immature Granulocytes % (auto) 0.3 %; Lymphocytes # (auto) 3.59 K/uL (1.2-3.4); Lymphocytes % (auto) 45.7 %; Mean Corpuscular Hemoglobin 30.4 pg (25.0-34.0); Mean Corpuscular Hgb Conc 33.2 g/dL (32.0-36.0); Mean Corpuscular Volume 91.4 fL (80.0-100.0); Mean Platelet Volume 10.4 fL (9.4-12.3); Monocytes # (auto) 0.61 K/uL (0.24-0.82); Monocytes % (auto) 7.8 %; Neutrophils # (auto) 3.14 K/uL (1.4-6.5); Neutrophils % (auto) 39.9 %; Platelet Count 260 K/uL (130-400); RDW Coefficient of Variation 12.1 % (11.5-14.5); RDW Standard Deviation 40.3 fL (36.4-46.3); Red Blood Count 3.85 M/uL (3.93-5.22); White Blood Count 7.86 K/ul (4.8-10.8)
--- NOTE | 2021-10-17 07:29 | Magnetic Resonance Report ---
MRI OF THE BRAIN WITHOUT IV CONTRAST CLINICAL HISTORY: Strokelike symptoms. Headache and dizziness. COMPARISON STUDY: CT of the brain dated 10/17/2021. TECHNIQUE: MRI of the brain was performed utilizing various T1 and T2-weighted sequences in the axial , sagittal, and coronal planes. IV contrast was not administered for this examination. FINDINGS: Brain parenchyma: There is age-related involutional change noting mild subcortical and periventricula r microangiopathic disease. There is no hemorrhage or mass effect. There is no restricted diffusion t o suggest acute ischemia. Maxwell-white matter differentiation is preserved. No extra-axial fluid collec tion is seen. The cerebellar tonsils are normal in configuration. Ventricles, sulci, and cisterns: Prominent secondary to involutional change. Pituitary and sella: Unremarkable. Intracranial vasculature: Normal flow voids are maintained at the skull base. Orbits: The bony orbits are grossly intact. Orbital contents are normal in appearance noting bilatera l ocular lens implants. Sinuses and mastoids: Clear. Calvarium: Unremarkable. Cervical cord: Partially visualized cervical spinal cord is normal in morphology and signal intensity . IMPRESSION: No acute intracranial abnormality. ACT 112: Negative or not required by law. Electronically signed by: Giuseppe Thomas M.D. 10/17/2021 7:28 AM
--- NOTE | 2021-10-17 07:43 | CT Scan Report ---
HEAD CTA HISTORY: Headache. Dizziness. Stroke Like Symptoms TECHNIQUE: Multiaxial CT images of the head were performed following the intravenous administration o f contrast to evaluate the major cerebral vessels. Maximum intensity projection images were also obta ined. A dose lowering technique was utilized adhering to the principles of ALARA. COMPARISON: None. FINDINGS: There is no mass, hematoma, midline shift, or acute infarct. Visualized intracranial email marketing intern al carotid arteries, distal vertebral arteries, and basilar artery are widely patent. There is no sig nificant stenosis, occlusion, or aneurysm seen within the bilateral ACAs, MCAs, or assisted living coordinator. IMPRESSION: No significant stenosis, occlusion, or aneurysm within the [place]. ACT 112: Negative or not required by law. Electronically signed by: Oumar Bustamante M.D. 10/17/2021 7:42 AM
--- NOTE | 2021-10-17 07:44 | CT Scan Report ---
HEAD CT NONCONTRAST CT DOSE: 1172.59 mGy.cm HISTORY: Dizziness. Stroke Like Symptoms TECHNIQUE: Multiaxial CT images of the head were performed without the use of intravenous contrast. A utomated exposure control was utilized for this study. A dose lowering technique was utilized adheri ng to the principles of ALARA. Comparison: Head CT 04/05/2021. Findings: The paranasal sinuses and mastoid air cells are clear. The calvarium and skull base are int act. There is no mass, hematoma, midline shift, acute infarct. White matter hypodensity is nonspecifi c but suggestive of microvascular ischemic change. The ventricles and sulci demonstrate mild age-rela tab involutional changes. Impression: No acute intracranial abnormality. ACT 112: Negative or not required by law. Electronically signed by: Oumar Bustamante M.D. 10/17/2021 7:43 AM
[2021-10-17 07:55] LABS: BUN Creatinine Ratio 28.9 (10-20); Creatinine Clr Calc Pharmacy 72.4 ml/min; Est GFR (African American) 85.9 ml/min; Est GFR (Non-African American) 74.1 ml/min; Potassium 3.8 mmol/L (3.5-5.1)
--- NOTE | 2021-10-17 07:57 | History and Physical Report ---
DATE OF ADMISSION: 10/17/2021. CHIEF COMPLAINT: Dizziness and imbalance. HISTORY OF PRESENT ILLNESS: This is an 81-year-old female with past medical history significant for type 2 diabetes,Dyslipidemia, Non toxic multinodular goiter,Diabetic polyneuropathy,GERD, CKD stage 3,Hx of breast and ovarian cancer, comes with dizziness. The patient says she was driving car when she felt dizzy and her eyes could not focus. She had to stop the car and she came here. Workup so far has been unremarkable. She does not know whether she is still dizzy or not now because she is not moving, but whenever she moves her head, she is feeling her head is dizzy, and her eyes are still going around , but no blurred vision or double vision. She says she also had some imbalance with this episode, and has some nausea, no vomiting. No difficulty swallowing. No chest pain, no shortness of breath, no cough, no fevers, no abdominal pain. Normal bowel and bladder movements. She said she had a similar episode about a week ago. ALLERGIES: PPI,CIMETIDINE,CELEXA,CARBAMAZEPINE,TRAMADOL,FOSAMAX,CIPRO,EPINEPHRINE,LIDOCAINE ,FLAGYL,PREDNISONE,PROPYLENE GLYCOL,ZOLOFT,STATINS,VALTREX,IBANDRONIC ACID PAST MEDICAL HISTORY: As mentioned above. PAST SURGICAL HISTORY: Excision of breast lesion colonoscopy,Cystoscopy, EGD,EGD and transendoscopic dilatation,EGD with biopsy, EGD with endoscopic US, ERCP< Excision of melanoma, Right lumpectomy for cancer,Right thumb tendon repair, Partial parathyroidectomy for parathyroid tumor,Appendectomy, Oophorectomy,Alp Cholecystectomy, Cataract surgery, Tonsillectomy and adenoidectomy, Repair of drooping eyebrow, Total abdominal hysterectomy with removal of tubes MEDICATIONS: The patient is on Tylenol Extra Strength 500 mg p.o. q. 4 hours p.r.n., acyclovir topical b.i.d., albuterol 2 puffs inhalation q.i.d. p.r.n., Artificial Tears 1 drop ophthalmic p.r.n., vitamin C 500 mg p.o. daily, aspirin 325 mg p.o. t.i.d., p.r.n., Excedrin 1 p.o. q. 6 hours p.r.n., baclofen 10 mg p.o. t.i.d. p.r.n., Dulcolax 5 mg p.o. daily p.r.n., chlorpheniramine 4 mg p.o. p.r.n., vitamin D 125 mcg p.o. daily, clindamycin topical b.i.d. p.r.n., cod liver oil 1 capsule p.o. daily, vitamin B12 2500 mcg p.o. daily,, Flonase 2 sprays intranasal daily, multivitamins 1 tablet p.o. daily, glucosamine chondroitin 1 tablet p.o. b.i.d., Lidocaine Viscous 5 mL p.o. q.i.d. p.r.n., Creon 1 capsule p.o. q.i.d. p.r.n., lorazepam 0.5 mg p.o. t.i.d. p.r.n., magnesium oxide 400 mg p.o. daily, melatonin 1 mg p.o. at bedtime p.r.n., metformin 500 mg p.o. daily, omeprazole 1 capsule p.o. daily, Zofran 4 mg p.o. p.r.n., oxycodone 5 mg p.o. q. 4 hours p.r.n., MiraLax 17 g p.o. daily, Florastor 250 mg p.o. daily, sucralfate 1 gram p.o. before meals and at bedtime p.r.n., vitamin B complex 1 tablet p.o. daily, ambien 5 mg p.o. at bedtime p.r.n. FAMILY HISTORY: Significant for Sister has Breast cancer, Father had lung cancer, Sister had bone cancer, Mother has DM, Thyroid disorder, Heart disease SOCIAL HISTORY: . Smoked average half pack a day for 40 years. No alcohol use. No drug use. REVIEW OF SYSTEMS: As per HPI. Rest of the review of systems is negative. PHYSICAL EXAMINATION: GENERAL: The patient is of moderate build, not in acute distress. VITAL SIGNS: Temperature 36.1, pulse 59, respiratory rate 18, blood pressure 118/67, oxygen 98% on room air. HEENT: Pupils equal, round and reactive to light. No nystagmus seen. Oral mucosa moist. NECK: No JVD, no neck masses. CARDIOVASCULAR: S1 and S2 heard. Regular rate and rhythm. No murmur, no gallop. RESPIRATORY SYSTEM: Normal AP diameter. No accessory muscle use. No wheezing, no crackles. ABDOMEN: Soft, bowel sounds present, nontender, no distention. CENTRAL NERVOUS SYSTEM: Alert and oriented. Speech is clear. No facial droop seen. Power 5/5 in all extremities. No pronator drift. Coordination of movements normal. Sensation intact. Position sense intact. Insight good. EXTREMITIES: No edema, no erythema. LABORATORY DATA: WBC 9.1, hemoglobin 12, hematocrit 35.6, platelets 265. PT 10.4, INR 1, APTT 24.8. Sodium 138, potassium 3.9, chloride 104, bicarb 25, BUN 26, creatinine 0.8, serum glucose 175, calcium 9.5, magnesium 2, total bilirubin 0.3, AST 20, ALT 16, alkaline phosphatase 52. Troponin I high sensitivity 4. SARS-CoV-2 rapid test negative. IMAGING DATA: Brain MRI, preliminary report unremarkable. CTA of the head and neck, preliminary report unremarkable. CT of the head preliminary report unremarkable. EKG: Normal sinus rhythm at a rate of 67, no acute ST changes seen. ASSESSMENT AND PLAN: This is an 81-year-old female who has been having dizziness and imbalance. 1. Dizziness and imbalance and not able to focus vision: CTA of the head and neck, CT of the head, and MRI of the head are unremarkable. Denies any recent viral infection. Probably benign positional vertigo as the patient is having dizziness when moving her head. meclizine p.r.n. Consult Neurology for further recommendations. Monitor in the hospital. 2. Type 2 diabetes: Will hold the metformin. Placed on insulin sliding scale. Will follow the blood sugars. Follow HbA1c levels. 3. Hyperlipidemia. Needs followup. 4. Chronic obstructive pulmonary disease, mild: Home inhalers. 5. Hypertension: Seems to be not on any medications. Monitor the blood pressure. 6. Gastroesophageal reflux disease: Omeprazole. 7. Deep venous thrombosis prophylaxis: Sequential compression devices for now. DISPOSITION: Monitor in the [facility] tele. PT/OT prior to discharge. Social service to help with discharge planning. Job ID: [id number] [facility]
[2021-10-17 08:29] LABS: Estimated Average Glucose 131 mg/dl; Hemoglobin A1C 6.2 % (4.5-5.6)
[2021-10-17] MEDS: INSULIN ASPART PER UNIT SC SCH ×3 (08:33→16:48)
[2021-10-17] MEDS ORDERED: ASCORBIC ACID 500 MG TAB PO SCH (09:00)
[2021-10-17] MEDS ORDERED: FLUTICASONE PROPIONATE NA SPR 16 GM BTL NAE SCH (09:00)
[2021-10-17] MEDS ORDERED: MAGNESIUM OXIDE 400 MG TAB PO SCH (09:00)
[2021-10-17] MEDS ORDERED: NON-FORMULARY MEDICATION (Glucosamine-Chondroitin 750-600 mg Tablet) PO SCH (09:00)
[2021-10-17] MEDS ORDERED: CEROVITE ADV FORMULA TAB PO SCH (09:00)
[2021-10-17] MEDS ORDERED: SACCHAROMYCES BOULARDII 250 MG CAP PO SCH (09:00)
[2021-10-17] MEDS ORDERED: CYANOCOBALAMIN (B-12) 2,500 MCG TABLET SL SCH (09:00)
[2021-10-17] MEDS ORDERED: CHOLECALCIFEROL 5,000 UNITS 125 MCG TAB PO SCH (09:00)
[2021-10-17] MEDS ORDERED: ACYCLOVIR 5% OINT 15 GM TUBE EXT SCH (09:00)
--- NOTE | 2021-10-17 11:13 | Electrocardiogram Report ---
Test Reason : Blood Pressure : / mmHG Vent. Rate : 067 BPM Atrial Rate : 067 BPM P-R Int : 176 ms QRS Dur : 086 ms QT Int : 412 ms P-R-T Axes : 023 007 055 degrees QTc Int : 435 ms Normal sinus rhythm Low voltage QRS Borderline ECG When compared with ECG of 04-AUG-2021 23:51, Criteria for Septal infarct are no longer Present Confirmed by Mo Guillen ([id number]) on 10/17/2021 11:13:37 AM Referred By: REFERRED SELF Confirmed By:Mo Guillen
--- NOTE | 2021-10-17 12:54 | Neurology Consultation ---
Date of Consultation October 17, 2021 Assessment & Plan (1) Dizziness: 1. MRI with no stroke 2. CTA head and neck- no acute findings. 3. PT/OT for Usama maneuver 4. continue aspirin 325 mg for stroke prevention 5. meclizine prn 6. keep well hydrated. 7. if symptoms return home exercises given by PT and can be referred to outpatient PT if needed. ok to discharge to home from neurology perspective, no neurology follow up needed can see us prn. (2) Headache: 1. tylenol prn Supervising Physician Co-Signing Physician Notes Patient was seen and examined. She reports severe vertigo earlier which has resolved with usama maneuver. No inner ear symptoms. On Examine EOMI wo nystagmus. Symptoms sound consistent with BPPV which she notes having before. Other ditch repairer include vestibular migraine although less likely. Follow up with Neuro PRN. History of Present Illness Reason for Consultation: dizziness, imbalance Requesting Physician: Rajendra Turner MD Attending Physician: Rajendra Turner MD History of Present Illness Clarisse is an 81 year old female with PMH-DM2,HLD, Non toxic multinodular goiter,Diabetic polyneuropathy,GERD, CKD 3,f breast and ovarian cancer, comes with dizziness.She was driving her car when she felt dizzy and her eyes could not focus. She had to stop the car and she came here. She does not know whether she is still dizzy or not now because she is not moving, but whenever she moves her head, she is feeling her head is dizzy, and her eyes are still going around , but no blurred vision or double vision. She had some imbalance with this episode, and has some nausea, no vomiting. No difficulty swallowing. She said she had a similar episode about a week ago. She is doing much better today. PT did Usama and gave her home exercises to do. denies, CP, SOB, abdominal pain, one sided weakness, numbness tingling, N, V, vision changes. Allergies Allergy/AdvReac Type Severity Reaction Status Date / Time Proton Pump Inhibitors Allergy Severe Chest Pain Verified 10/16/21 23:46 cimetidine Allergy Intermediate HALLUCINATI Verified 10/16/21 23:46 ONS citalopram [From Celexa] Allergy Unknown UNKNOWN--PER Verified 10/16/21 23:46 [facility] MED LIST carbamazepine AdvReac Severe pancreatiti Verified 10/16/21 23:46 s tramadol AdvReac Severe SOB, CHEST Verified 10/16/21 23:46 PAIN alendronate sodium AdvReac Intermediate Chest Pain Verified 10/16/21 23:46 [From Fosamax] ciprofloxacin AdvReac Intermediate DOES NOT Verified 10/16/21 23:46 TOLERATE epinephrine AdvReac Intermediate Tachycardia Verified 10/16/21 23:46 lidocaine AdvReac Intermediate Tachycardia Verified 10/16/21 23:46 metronidazole [From Flagyl] AdvReac Intermediate Abdominal Verified 10/16/21 23:46 Pain prednisone AdvReac Intermediate "I heard Verified 10/16/21 23:46 voices and I felt crappy". propylene glycol AdvReac Intermediate BURNING Verified 10/16/21 23:46 SENSATION IN VAGINAL AREA sertraline AdvReac Intermediate PSYCH Verified 10/16/21 23:46 COMPLICATIONS simvastatin AdvReac Intermediate Chest Pain Verified 10/16/21 23:46 Mzsmajw-HPQ-FmK Reductase AdvReac Intermediate MUSCLE Verified 10/16/21 23:46 Inhibitor WEAKNESS [Tqmyzwx-Mba-Kpz Reductase Inhibitor] valacyclovir [From Valtrex] AdvReac Intermediate RUQ ABD Verified 10/16/21 23:46 PAIN Ibandronic Acid AdvReac Intermediate GERD Uncoded 10/16/21 23:46 Home Medications Medication Instructions Recorded Confirmed Type cyanocobalamin (vitamin B-12) 2,500 mcg sublingual DAILY 01/30/19 10/17/21 History 2,500 mcg sublingual tablet (Vitamin B-12) aspirin 325 mg tablet 325 mg PO TID PRN pain 05/31/19 10/17/21 History artificial 1 drp ophthalmic (eye) QID PRN Dry 04/12/21 10/17/21 History tears(vgynnlw-gdbutaod-jizxllu) Eyes 0.1 %-0.3 %-0.2 % eye drops lidocaine HCl 2 % mucosal solution 5 ml PO QID PRN Acid Reflux 04/12/21 10/17/21 History (Lidocaine Viscous) lorazepam 0.5 mg tablet 0.5 mg PO TID PRN Anxiety 04/12/21 10/17/21 History melatonin 1 mg tablet 1 mg PO HS PRN Insomnia 04/12/21 10/17/21 History mupirocin calcium 2 % nasal 1 ea topical BID PRN Skin 04/12/21 10/17/21 History ointment Irritation polyethylene glycol 3350 17 17 g PO DAILY 04/12/21 10/17/21 History gram/dose oral powder albuterol sulfate 90 mcg/actuation 2 puff inhalation QID PRN 10/16/21 10/17/21 History aerosol inhaler (ProAir HFA) Shortness Of Breath Or Wheezing ascorbic acid (vitamin C) 500 mg 500 mg PO DAILY 10/16/21 10/17/21 History tablet (Vitamin C) chlorpheniramine maleate 4 mg 4 mg PO DIRECTED PRN NEEDED 10/16/21 10/17/21 History tablet PER [facility] cholecalciferol (vitamin D3) 125 125 mcg PO DAILY 10/16/21 10/17/21 History mcg (5,000 unit) tablet (Vitamin D3) geriatric pgnsczxz-mqfc-epry 1 tab PO DAILY 10/16/21 10/17/21 History glucosamine-chondroitin 750 mg-600 1 tab PO BID 10/16/21 10/17/21 History mg tablet omega-3 240 cq-mxb-fip-cod liver 1 cap PO DAILY 10/16/21 10/17/21 History oil 1,000 mg-vit A-vit D3 capsule (cod liver oil) phenazopyridine 200 mg tablet 200 mg PO TID PRN Pain 10/16/21 10/17/21 History (Pyridium) sucralfate 1 gram tablet (Carafate) 1 g PO ACHS PRN ABD PAIN 10/16/21 10/17/21 History triamcinolone acetonide 0.05 % 1 applic topical BID PRN Skin 10/16/21 10/17/21 History topical ointment Irritation vitamin B complex 1 tab PO DAILY 10/16/21 10/17/21 History zolpidem 5 mg tablet 5 mg PO HS PRN Sleep 10/16/21 10/17/21 History Saccharomyces boulardii 250 mg 250 mg PO DAILY 10/17/21 10/17/21 History capsule (Florastor) acetaminophen 500 mg tablet 500 mg PO Q4H PRN Pain 10/17/21 10/17/21 History (Tylenol Extra Strength) acyclovir 5 % topical cream 1 applic topical BID 10/17/21 10/17/21 History baclofen 10 mg tablet 10 mg PO TID PRN MUSCLE SPASMS 10/17/21 10/17/21 History bisacodyl 5 mg tablet,delayed 5 mg PO DAILY PRN Constipation 10/17/21 10/17/21 History release (Dulcolax (bisacodyl)) clindamycin phosphate 1 % topical 1 applic topical BID PRN AFFECTED 10/17/21 10/17/21 History solution AREA flaxseed 1 ea PO DAILY 10/17/21 10/17/21 History fluticasone propionate 50 2 spray intranasal DAILY 10/17/21 10/17/21 History mcg/actuation nasal spray,suspension vucoxr-cozovqwg-qotpdop 1 cap PO QID PRN HEAVY MEALS 10/17/21 10/17/21 History 6,000-19,000-30,000 unit capsule,delayed rel (Creon) magnesium oxide 500 mg tablet 500 mg PO DAILY 10/17/21 10/17/21 History metformin 500 mg tablet,extended 500 mg PO QAM 10/17/21 10/17/21 History release 24 hr metronidazole 0.75 % topical gel 1 applic topical BID 10/17/21 10/17/21 History omeprazole 20 mg-sodium 1 cap PO DAILY PRN 10/17/21 10/17/21 History bicarbonate 1.1 gram capsule HEARTBURN/INDIGESTION (Zegerid OTC) ondansetron HCl 4 mg tablet 4 - 8 mg PO Q8H PRN NAUSEA/VOMITING 10/17/21 10/17/21 History oxycodone 5 mg tablet 5 mg PO Q4H PRN pain 10/17/21 10/17/21 History soybean, fermented 50 mg capsule 100 mg PO DAILY 10/17/21 10/17/21 History (Nattokinase) ursodiol 300 mg capsule 300 mg PO BID 10/17/21 10/17/21 History Patient History Medical History Actinic keratosis Anxiety Chemotherapy-induced neuropathy Degenerative disc disease Dysplastic nevus GERD (gastroesophageal reflux disease) History of left breast cancer 1991--sx/chemo/radiation History of ovarian cancer diagnosed 1991--pt states it was "a 00 rating"--found after hysterectomy 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) Pancreatitis Prediabetes T2DM (type 2 diabetes mellitus) Surgical History H/O oophorectomy History of appendectomy History of basal cell carcinoma back, face tx with ulloa 2000 History of bilateral breast reduction surgery History of bilateral cataract extraction History of blepharoplasty bilt eyes, upper and lower History of breast biopsy malignant History of cholecystectomy History of colonoscopy History of dilatation and curettage History of ERCP History of hysterectomy d/t fibroids History of open reduction and internal fixation (ORIF) procedure right tibia fx--hardware in place History of open reduction and internal fixation (ORIF) procedure left wrist--hardware removed History of oral surgery gum sx History of parathyroidectomy right side--benign tumor History of root canal procedure History of thumb surgery right, tissue repair History of tonsillectomy and adenoidectomy History of wisdom tooth extraction Melanoma stage 1A, negative SLN right upper back 1999 stage 1A 0.2 mm superficial spreading ? location 2017 Dr. Toro Family History Mother Family history of diabetes mellitus Family hx colonic polyps Hearing loss Hypertension Stroke Heart disease Allergies Sister Family history of diabetes mellitus Family hx colonic polyps Hypertension Cancer Heart disease Allergies Brother Cancer Other No family history of adverse response to anesthesia No family history of bleeding disorder No significant family history Denies family history of Asthma Social History Smoking Status: Never smoker Tobacco Type: Cigarettes Second Hand Exposure: No; Hx Alcohol Use: No Hx Substance Use: No Preferred Language: Senegalese Communication Ability: Effective Site Lead Required: No Beliefs That Will Affect Care: None marital status: Current Living Situation: Spouse current occupational status: retired Other Information That Helps Us Care for You: No 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 Safe at Home: Yes Safety Concerns: Feels Safe At This Time Assistive Devices: Cane and Walker Review of Systems Review of Systems: All systems reviewed & are unremarkable except as noted in HPI & below Physical Exam Physical Exam: Physical Exam: Constitutional: appearance nourished, healthy and normal Ears, Nose, Mouth and Throat: mucous membranes moist, no injection and skin normal, eyes normal Cardiovascular: normal S-1 and S-2 and regular rate and rhythm Respiratory: clear to auscultation (CTA) and no rales, rhonchi or wheeze Musculoskeletal: no peripheral edema and good distal pulses Skin: no stigmata of neurocutaneous disease noted and normal and intact Eyes: extraocular muscles intact (EOMI) and pupils equal, round and reactive to light (PERRL) NEUROLOGIC EXAMINATION: Mental status: Alert and interactive Oriented to full date and location Oriented to person Speech fluent with no evidence of aphasia Cranial Nerves smile eye brow raise symmetric sensory: no sensory deficits Coordination: finger to nose no bipass Gait/Stance: Posture normal. stands without dizziness, some fatigue Motor: Negative for pronator drift of out stretched arms with eyes closed. 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 The calvarium and skull base are intact. There is no mass, hematoma, midline shift, acute infarct. White matter hypodensity is nonspecific but suggestive of microvascular ischemic change. The ventricles and sulci demonstrate mild age-related involutional dwayne nges. CTA head-No significant stenosis, occlusion, or aneurysm within the [place]. CTA neck-Unremarkable CT angiogram of the neck. MRI brain-No acute intracranial abnormality.
--- NOTE | 2021-10-17 15:40 | Hospitalist Progress Note ---
Date of Service October 17, 2021 Assessment & Plan (1) Dizziness: Plan: This is an 81-year-old female who has been having dizziness and imbalance. 1. Dizziness and imbalance and not able to focus vision: CTA of the head and neck, CT of the head, and MRI of the head are unremarkable. Denies any recent viral infection. Probably benign positional vertigo as the patient is having dizziness when moving her head. meclizine p.r.n. Consult Neurology for further recommendations and PT for Tori maneuvers. Monitor in the hospital. 10/17 -patient's symptoms much improved after Tori maneuvers 2. Type 2 diabetes: Will hold the metformin. Placed on insulin sliding scale. Will follow the blood sugars. Follow HbA1c levels. 3. Hyperlipidemia. Needs followup. 4. Chronic obstructive pulmonary disease, mild: Home inhalers. 5. Hypertension: Seems to be not on any medications. Monitor the blood pressure. 6. Gastroesophageal reflux disease: Omeprazole. DVT prophylaxis: SCDs for now. Admission and Anticipated Discharge Date Admission Date: October 17, 2021 Subjective Patient seen in follow-up of dizziness, noted during her driving Currently saying that she is feeling much better, denies any fevers, chills, chest pain, shortness of breath, abdominal pain, nausea or vomiting. Brain images obtained in ER are negative Neurology and PT for Tori maneuvers consulted After patient worked with PT, symptoms has resolved Review of Systems Review of Systems: All systems reviewed & are unremarkable except as noted in Subjective Physical Exam Physical Exam: GENERAL: The patient is of moderate build, not in acute distress. HEENT: NC/AT. EOMI. Pupils equal, round and reactive to light.Oral mucosa moist. NECK: No JVD, no neck masses. CARDIOVASCULAR: S1 and S2 heard. Regular rate and rhythm. No murmur, no gallop. RESPIRATORY SYSTEM: Normal AP diameter. No accessory muscle use. No wheezing, no crackles. ABDOMEN: Soft, bowel sounds present, nontender, no distention. NEURO: Alert and oriented. Speech is clear. No facial droop seen. Power 5/5 in all extremities. No pronator drift. Coordination of movements normal. Sensation intact. Insight good. EXTREMITIES: No edema, no erythema. Results & Data Results & Data ([facility]) Vital Signs (Past 12 Hours) Vital Signs Temp Pulse Pulse Resp BP Pulse Ox O2 Del Method 10/17/21 14:58 61 10/17/21 11:10 36.5 C 59 L 20 121/75 97 10/17/21 07:58 54 L 10/17/21 07:18 36.5 C 51 L 18 121/74 97 Room Air 10/17/21 05:27 62 10/17/21 05:29 36.5 C 58 L 16 108/61 99 Room Air Laboratory Results 10/17/21 10/17/21 10/17/21 Range/Units 12:36 08:32 06:59 WBC (4.8-10.8) K/ul RBC (3.93-5.22) M/uL Hgb (12.0-16.0) g/dl Hct (34.1-44.9) % MCV (80.0-100.0) fL MCH (25.0-34.0) pg MCHC (32.0-36.0) g/dL RDW Std Deviation (36.4-46.3) fL RDW Coeff of Mack (11.5-14.5) % Plt Count (130-400) K/uL MPV (9.4-12.3) fL Immature Gran % (Auto) % Neut % (Auto) % Lymph % (Auto) % Mccormick % (Auto) % Eos % (Auto) % Baso % (Auto) % Neut # (Auto) (1.4-6.5) K/uL Lymph # (Auto) (1.2-3.4) K/uL Mccormick # (Auto) (0.24-0.82) K/uL Eos # (Auto) (0-0.50) K/uL Baso # (Auto) (0-0.2) K/uL Immature Gran # (Auto) (0.00-0.02) K/uL PT (9.0-12.0) Seconds INR (0.9-1.1) APTT (21.0-31.0) Seconds PTT Ratio Sodium (136-145) mmol/L Potassium (3.5-5.1) mmol/L Chloride (98-107) mmol/L Carbon Dioxide (21-32) mmol/L Anion Gap (3-11) BUN (6-23) mg/dl Creatinine (0.6-1.2) mg/dl Est Cr Clr Drug Dosing ml/min Est GFR ( Amer) ml/min Est GFR (Non-Af Amer) ml/min BUN/Creatinine Ratio (10-20) Glucose (70-99(Fasting)) mg/dl POC Glucose 134 H 104 H (70-99) mg/dl Estimat Average Glucose 131 mg/dl Hemoglobin A1c 6.2 H (4.5-5.6) % Calcium (8.5-10.1) mg/dl Magnesium (1.7-2.4) mg/dl Total Bilirubin (0.2-1.0) mg/dl AST (13-39) U/L ALT (7-52) U/L Alkaline Phosphatase (34-104) U/L Troponin I High Sens (0-14) pg/ml Total Protein (6.0-8.3) gm/dl Albumin (3.4-5.0) gm/dl Globulin (2.5-4.0) gm/dl Albumin/Globulin Ratio (0.9-2) SARS-CoV-2, RNA, NAAT (NEGATIVE) 10/17/21 10/17/21 10/17/21 Range/Units 06:59 06:59 02:12 WBC 7.86 (4.8-10.8) K/ul RBC 3.85 L (3.93-5.22) M/uL Hgb 11.7 L (12.0-16.0) g/dl Hct 35.2 (34.1-44.9) % MCV 91.4 (80.0-100.0) fL MCH 30.4 (25.0-34.0) pg MCHC 33.2 (32.0-36.0) g/dL RDW Std Deviation 40.3 (36.4-46.3) fL RDW Coeff of Mack 12.1 (11.5-14.5) % Plt Count 260 (130-400) K/uL MPV 10.4 (9.4-12.3) fL Immature Gran % (Auto) 0.3 % Neut % (Auto) 39.9 % Lymph % (Auto) 45.7 % Mccormick % (Auto) 7.8 % Eos % (Auto) 5.2 % Baso % (Auto) 1.1 % Neut # (Auto) 3.14 (1.4-6.5) K/uL Lymph # (Auto) 3.59 H (1.2-3.4) K/uL Mccormick # (Auto) 0.61 (0.24-0.82) K/uL Eos # (Auto) 0.41 (0-0.50) K/uL Baso # (Auto) 0.09 (0-0.2) K/uL Immature Gran # (Auto) 0.02 (0.00-0.02) K/uL PT (9.0-12.0) Seconds INR (0.9-1.1) APTT (21.0-31.0) Seconds PTT Ratio Sodium 138 (136-145) mmol/L Potassium 3.8 (3.5-5.1) mmol/L Chloride 105 (98-107) mmol/L Carbon Dioxide 27 (21-32) mmol/L Anion Gap 6 (3-11) BUN 22 (6-23) mg/dl Creatinine 0.76 (0.6-1.2) mg/dl Est Cr Clr Drug Dosing 72.4 ml/min Est GFR ( Amer) 85.9 ml/min Est GFR (Non-Af Amer) 74.1 ml/min BUN/Creatinine Ratio 28.9 H (10-20) Glucose 100 H (70-99(Fasting)) mg/dl POC Glucose (70-99) mg/dl Estimat Average Glucose mg/dl Hemoglobin A1c (4.5-5.6) % Calcium 9.0 (8.5-10.1) mg/dl Magnesium 2.0 (1.7-2.4) mg/dl Total Bilirubin (0.2-1.0) mg/dl AST (13-39) U/L ALT (7-52) U/L Alkaline Phosphatase (34-104) U/L Troponin I High Sens (0-14) pg/ml Total Protein (6.0-8.3) gm/dl Albumin (3.4-5.0) gm/dl Globulin (2.5-4.0) gm/dl Albumin/Globulin Ratio (0.9-2) SARS-CoV-2, RNA, NAAT NEGATIVE (NEGATIVE) 10/16/21 10/16/21 10/16/21 Range/Units 23:15 23:15 23:15 WBC 9.11 (4.8-10.8) K/ul RBC 3.87 L (3.93-5.22) M/uL Hgb 12.0 (12.0-16.0) g/dl Hct 35.6 (34.1-44.9) % MCV 92.0 (80.0-100.0) fL MCH 31.0 (25.0-34.0) pg MCHC 33.7 (32.0-36.0) g/dL RDW Std Deviation 40.6 (36.4-46.3) fL RDW Coeff of Mack 12.0 (11.5-14.5) % Plt Count 265 (130-400) K/uL MPV 10.0 (9.4-12.3) fL Immature Gran % (Auto) 0.3 % Neut % (Auto) 48.3 % Lymph % (Auto) 40.3 % Mccormick % (Auto) 6.0 % Eos % (Auto) 4.1 % Baso % (Auto) 1.0 % Neut # (Auto) 4.40 (1.4-6.5) K/uL Lymph # (Auto) 3.67 H (1.2-3.4) K/uL Mccormick # (Auto) 0.55 (0.24-0.82) K/uL Eos # (Auto) 0.37 (0-0.50) K/uL Baso # (Auto) 0.09 (0-0.2) K/uL Immature Gran # (Auto) 0.03 H (0.00-0.02) K/uL PT 10.4 (9.0-12.0) Seconds INR 1.0 (0.9-1.1) APTT 24.8 (21.0-31.0) Seconds PTT Ratio 0.9 Sodium 138 (136-145) mmol/L Potassium 3.9 (3.5-5.1) mmol/L Chloride 104 (98-107) mmol/L Carbon Dioxide 25 (21-32) mmol/L Anion Gap 9 (3-11) BUN 26 H (6-23) mg/dl Creatinine 0.88 (0.6-1.2) mg/dl Est Cr Clr Drug Dosing 62.5 ml/min Est GFR ( Amer) 71.9 ml/min Est GFR (Non-Af Amer) 62.1 ml/min BUN/Creatinine Ratio 29.5 H (10-20) Glucose 175 H (70-99(Fasting)) mg/dl POC Glucose (70-99) mg/dl Estimat Average Glucose mg/dl Hemoglobin A1c (4.5-5.6) % Calcium 9.5 (8.5-10.1) mg/dl Magnesium 2.0 (1.7-2.4) mg/dl Total Bilirubin 0.3 (0.2-1.0) mg/dl AST 20 (13-39) U/L ALT 16 (7-52) U/L Alkaline Phosphatase 52 (34-104) U/L Troponin I High Sens 4.0 (0-14) pg/ml Total Protein 7.4 (6.0-8.3) gm/dl Albumin 4.2 (3.4-5.0) gm/dl Globulin 3.2 (2.5-4.0) gm/dl Albumin/Globulin Ratio 1.3 (0.9-2) SARS-CoV-2, RNA, NAAT (NEGATIVE) Medications Administered Current Inpatient Medications Acetaminophen (Acetaminophen 325 Mg Tab) 650 mg PO Q4H PRN PRN Reason: Pain or Fever Stop: 11/16/21 05:28 Acyclovir (Acyclovir 5% Oint 15 Gm Tube) 1 appln EXT BID JUAN DIEGO Stop: 10/27/21 08:59 Last Admin: 10/17/21 08:28 Dose: 1 appln Albuterol (Albuterol Hfa 8 Gm Inhaler) 2 puffs INH QID PRN PRN Reason: Shortness Of Breath Or Wheezin Stop: 11/16/21 05:28 Lipase/Protease/Amylase (Pancreaze (Lipase 4,200u) Cap) 1 cap PO QID PRN PRN Reason: HEAVY MEALS Stop: 11/16/21 05:57 Artificial Tears (Artificial Tears) 1 drops OP QID PRN PRN Reason: Dry Eyes Stop: 11/16/21 05:42 Ascorbic Acid (Ascorbic Acid 500 Mg Tab) 500 mg PO DAILY JUAN DIEGO Stop: 11/16/21 08:59 Last Admin: 10/17/21 08:27 Dose: 500 mg Aspirin (Aspirin 325 Mg Ectab) 325 mg PO TID PRN PRN Reason: pain Stop: 11/16/21 05:28 Baclofen (Baclofen 10 Mg Tab) 10 mg PO TID PRN PRN Reason: MUSCLE SPASMS Stop: 11/16/21 05:28 Bisacodyl (Bisacodyl 5 Mg Tabec) 5 mg PO DAILY PRN PRN Reason: Constipation Stop: 11/16/21 05:28 Cyanocobalamin (Cyanocobalamin (B-12) 2,500 Mcg Tablet) 2,500 mcg SL DAILY JUAN DIEGO Stop: 11/16/21 08:59 Last Admin: 10/17/21 08:27 Dose: 2,500 mcg Dextrose (Dextrose 50% 50 Ml Syringe) 25 - 50 ml IV UD PRN; Protocol PRN Reason: Hypoglycemia Protocol Stop: 11/16/21 05:44 Fluticasone Propionate (Fluticasone Propionate Na Spr 16 Gm Btl) 2 sprays AKHIL DAILY JUAN DIEGO Stop: 11/16/21 08:59 Last Admin: 10/17/21 08:28 Dose: 2 sprays Glucagon (Glucagon For Inj 1 Mg Vial) 1 mg IM UD PRN; Protocol PRN Reason: Hypoglycemia Protocol Stop: 11/16/21 05:44 Glucose (Glucose 40% Gel 15 Gm Tube) 15 - 30 gm PO UD PRN; Protocol PRN Reason: Hypoglycemia Protocol Stop: 11/16/21 05:44 Glucose (Glucose 10 Tab/Tube) 4 - 8 tab PO UD PRN; Protocol PRN Reason: Hypoglycemia Protocol Stop: 11/16/21 05:44 Sodium Chloride (Nss 1000ml) 1,000 mls @ 80 mls/hr IV .[id number] JUAN DIEGO Stop: 10/17/21 17:58 Last Admin: 10/17/21 05:55 Dose: 80 mls/hr Insulin Aspart (Insulin Aspart Per Unit) 0 units SC ACHS JUAN DIEGO Stop: 11/16/21 07:29 Last Admin: 10/17/21 12:37 Dose: Not Given Lorazepam (Lorazepam 0.5 Mg Tab) 0.5 mg PO TID PRN PRN Reason: Anxiety Stop: 11/16/21 05:28 Magnesium Oxide (Magnesium Oxide 400 Mg Tab) 400 mg PO DAILY JUAN DIEGO Stop: 11/16/21 08:59 Last Admin: 10/17/21 08:27 Dose: 400 mg Meclizine HCl (Meclizine 12.5 Mg Tab) 12.5 mg PO TID PRN PRN Reason: Dizziness or Vertigo Stop: 11/16/21 05:28 Melatonin (Melatonin 3 Mg Tab) 1.5 mg PO HS PRN PRN Reason: Insomnia Stop: 11/16/21 05:37 Miscellaneous (Zegerid Otc - Order Awaiting Action) 1 each N/A QS JUAN DIEGO Stop: 11/16/21 07:59 Last Admin: 10/17/21 08:29 Dose: Not Given Miscellaneous (Carbohydrates For Hypoglycemia ) 15 - 30 gm PO UD PRN PRN Reason: Hypoglycemia Treatment Stop: 11/16/21 05:44 Multivitamins/Minerals (Cerovite Adv Formula Tab) 1 tab PO DAILY JUAN DIEGO Stop: 11/16/21 08:59 Last Admin: 10/17/21 08:27 Dose: 1 tab Nitroglycerin (Nitroglycerin Sl 0.4 Mg/Tab Tab) 0.4 mg SL UD PRN PRN Reason: Chest Pain Stop: 11/16/21 05:28 Ondansetron HCl (Ondansetron Inj 2 Mg/Ml 2 Ml Vial) 4 mg IV Q6H PRN PRN Reason: Nausea Stop: 11/16/21 05:28 Polyethylene Glycol (Polyethylene (Miralax) 17 Gm Pack) 17 gm PO DAILY PRN PRN Reason: Constipation Stop: 11/16/21 05:28 Last Admin: 10/17/21 05:55 Dose: 17 gm Saccharomyces Boulardii (Saccharomyces Boulardii 250 Mg Cap) 250 mg PO DAILY JUAN DIEGO Stop: 11/16/21 08:59 Last Admin: 10/17/21 08:27 Dose: 250 mg Sucralfate (Sucralfate 1 Gm Tab) 1 gm PO ACHS PRN PRN Reason: ABD PAIN Stop: 11/16/21 05:28 Vitamin D (Cholecalciferol 5,000 Units 125 Mcg Tab) 5,000 units PO DAILY JUAN DIEGO Stop: 11/16/21 08:59 Last Admin: 10/17/21 08:28 Dose: 5,000 units Zolpidem Tartrate (Zolpidem Tartrate 5 Mg Tab) 5 mg PO HS PRN PRN Reason: Sleep Stop: 11/16/21 05:28
--- NOTE | 2021-10-17 16:44 | Discharge Summary ---
Date of Service October 17, 2021 Admission HPI Per Admitting Provider This is an 81-year-old female with past medical history significant for type 2 diabetes,Dyslipidemia, Non toxic multinodular goiter,Diabetic polyneuropathy,GERD, CKD stage 3,Hx of breast and ovarian cancer, comes with bree zuluaga. The patient says she was driving car when she felt dizzy and her eyes could not focus. She had to stop the car and she came here. Workup so far has been unremarkable. She does not know whether she is still dizzy or not now because she is not moving, but whenever she moves her head, she is feeling her head is dizzy, and her eyes are still going around , but no blurred vision or double vision. She says she also had some imbalance with this episode, and has some nausea, no vomiting. No difficulty swallowing. No chest pain, no shortness of breath, no cough, no fevers, no abdominal pain. Normal bowel and bladder movements. She said she had a similar episode about a week ago. Admission Exam Per Admitting Provider GENERAL: The patient is of moderate build, not in acute distress. VITAL SIGNS: Temperature 36.1, pulse 59, respiratory rate 18, blood pressure 118/67, oxygen 98% on room air. HEENT: Pupils equal, round and reactive to light. No nystagmus seen. Oral mucosa moist. NECK: No JVD, no neck masses. CARDIOVASCULAR: S1 and S2 heard. Regular rate and rhythm. No murmur, no gallop. RESPIRATORY SYSTEM: Normal AP diameter. No accessory muscle use. No wheezing, no crackles. ABDOMEN: Soft, bowel sounds present, nontender, no distention. CENTRAL NERVOUS SYSTEM: Alert and oriented. Speech is clear. No facial droop seen. Power 5/5 in all extremities. No pronator drift. Coordination of movements normal. Sensation intact. Position sense intact. Insight good. EXTREMITIES: No edema, no erythema. Principal Diagnosis Dizziness likely secondary to BPPV Discharge Exam GENERAL: The patient is of moderate build, not in acute distress. HEENT: NC/AT. EOMI. Pupils equal, round and reactive to light.Oral mucosa moist. NECK: No JVD, no neck masses. CARDIOVASCULAR: S1 and S2 heard. Regular rate and rhythm. No murmur, no gallop. RESPIRATORY SYSTEM: Normal AP diameter. No accessory muscle use. No wheezing, no crackles. ABDOMEN: Soft, bowel sounds present, nontender, no distention. NEURO: Alert and oriented. Speech is clear. No facial droop seen. Power 5/5 in all extremities. No pronator drift. Coordination of movements normal. Sensation intact. Insight good. EXTREMITIES: No edema, no erythema. Discharge Data Allergies Allergy/AdvReac Type Severity Reaction Status Date / Time Proton Pump Inhibitors Allergy Severe Chest Pain Verified 10/16/21 23:46 cimetidine Allergy Intermediate HALLUCINATI Verified 10/16/21 23:46 ONS citalopram [From Celexa] Allergy Unknown UNKNOWN--PER Verified 10/16/21 23:46 [facility] MED LIST carbamazepine AdvReac Severe pancreatiti Verified 10/16/21 23:46 s tramadol AdvReac Severe SOB, CHEST Verified 10/16/21 23:46 PAIN alendronate sodium AdvReac Intermediate Chest Pain Verified 10/16/21 23:46 [From Fosamax] ciprofloxacin AdvReac Intermediate DOES NOT Verified 10/16/21 23:46 TOLERATE epinephrine AdvReac Intermediate Tachycardia Verified 10/16/21 23:46 lidocaine AdvReac Intermediate Tachycardia Verified 10/16/21 23:46 metronidazole [From Flagyl] AdvReac Intermediate Abdominal Verified 10/16/21 23:46 Pain prednisone AdvReac Intermediate "I heard Verified 10/16/21 23:46 voices and I felt crappy". propylene glycol AdvReac Intermediate BURNING Verified 10/16/21 23:46 SENSATION IN VAGINAL AREA sertraline AdvReac Intermediate PSYCH Verified 10/16/21 23:46 COMPLICATIONS simvastatin AdvReac Intermediate Chest Pain Verified 10/16/21 23:46 Kyoncjn-CSW-FpO Reductase AdvReac Intermediate MUSCLE Verified 10/16/21 23:46 Inhibitor WEAKNESS [Bbweccu-Xcp-Ojl Reductase Inhibitor] valacyclovir [From Valtrex] AdvReac Intermediate RUQ ABD Verified 10/16/21 23:46 PAIN Ibandronic Acid AdvReac Intermediate GERD Uncoded 10/16/21 23:46 Consultations 10/17/21 01:56 ED Decision to Admit Stat 10/17/21 08:00 Consult Neurology Routine Ordered Studies 10/16/21 23:05 CT angio head w con Urgent FINDINGS: There is no mass, hematoma, midline shift, or acute infarct. Visualized intracranial internal carotid arteries, distal vertebral arteries, and basilar artery are widely patent. There is no significant stenosis, occlusion, or aneurysm seen within the bilateral ACAs, MCAs, or adult education instructor. IMPRESSION: No significant stenosis, occlusion, or aneurysm within the chit[place] of [place]. CT angio neck with con Urgent IMPRESSION: Unremarkable CT angiogram of the neck. CT head/brain wo con Urgent Findings: The paranasal sinuses and mastoid air cells are clear. The calvarium and skull base are intact. There is no mass, hematoma, midline shift, acute infarct. White matter hypodensity is nonspecific but suggestive of microvascular ischemic change. The ventricles and sulci demonstrate mild age-related involutional changes. Impression: No acute intracranial abnormality. 10/17/21 01:56 MR brain wo con Stat FINDINGS: Brain parenchyma: There is age-related involutional change noting mild subcortical and periventricular microangiopathic disease. There is no hemorrhage or mass effect. There is no restricted diffusion to suggest acute ischemia. Maxwell-white matter differentiation is preserved. No extra-axial fluid collection is seen. The cerebellar tonsils are normal in configuration. Ventricles, sulci, and cisterns: Prominent secondary to involutional change. Pituitary and sella: Unremarkable. Intracranial vasculature: Normal flow voids are maintained at the skull base. Orbits: The bony orbits are grossly intact. Orbital contents are normal in appearance noting bilateral ocular lens implants. Sinuses and mastoids: Clear. Calvarium: Unremarkable. Cervical cord: Partially visualized cervical spinal cord is normal in morphology and signal intensity. IMPRESSION: No acute intracranial abnormality. Hospital Course (1) Dizziness: This is an 81-year-old female who has been having dizziness and imbalance. 1. Dizziness and imbalance and not able to focus vision: CTA of the head and neck, CT of the head, and MRI of the head are unremarkable. Denies any recent viral infection. Probably benign positional vertigo as the patient is having dizziness when moving her head. meclizine p.r.n. Consult Neurology for further recommendations and PT for Tori maneuvers. Monitor in the hospital. 10/17 -patient's symptoms much improved after Tori maneuvers 2. Type 2 diabetes: Will hold the metformin. Placed on insulin sliding scale. Will follow the blood sugars. Current HbA1c 6.2% 3. Hyperlipidemia. Needs followup. 4. Chronic obstructive pulmonary disease, mild: Home inhalers. 5. Hypertension: Seems to be not on any medications. Monitor the blood pressure. BP at goal 6. Gastroesophageal reflux disease: Omeprazole. Total Time Total Time Spent Total Time Spent (In Minutes): 40 Discharge Plan Discharge Items Patient Disposition: Home - Self-Care Reason For Visit: DIZZINESS Discharge Diagnosis: Dizziness likely secondary to BPPV Condition on Discharge: Good Activity: Per Instructions section Non-emergency contact: Primary Care Provider Call non-emergency contact if: you have any medication questions and your symptoms worsen Follow-up/Referrals: Atif Julian DO [Primary Care Provider] - Diet: Carb Consistent or DM2 and Heart Healthy Diet Texture: Easy to Chew Addtl Attending Provider Instructions: Follow-up with your primary care doctor, within 1 to 2 weeks. If symptoms return, recommend exercises (Tori maneuvers) provided to you by physical therapist. If your symptoms are persistent, you may need physical therapy as outpatient as well. Pending Studies at Discharge: No Stand-Alone Forms: [employer], Smoking Cessation Medications and DC Order Prescriptions: Continued aspirin 325 mg tablet 325 mg PO TID PRN (Reason: pain) cyanocobalamin (vitamin B-12) [Vitamin B-12] 2,500 mcg Tablet, Sublingual 2,500 mcg SUBLINGUAL DAILY lidocaine HCl [Lidocaine Viscous] 2 % Solution 5 ml PO QID PRN (Reason: Acid Reflux) melatonin 1 mg Tablet 1 mg PO HS PRN (Reason: Insomnia) mupirocin calcium 2 % Ointment 1 ea topical BID PRN (Reason: Skin Irritation) polyethylene glycol 3350 17 gram/dose Powder 17 g PO DAILY lorazepam 0.5 mg Tablet 0.5 mg PO TID PRN (Reason: Anxiety) artificial tear(qrlbg-mjl-ugn) 0.1-0.3-0.2 % Drops 1 drp OPHTHALMIC (EYE) QID PRN (Reason: Dry Eyes) chlorpheniramine maleate 4 mg Tablet 4 mg PO DIRECTED PRN (Reason: NEEDED PER [facility]) Rx Instructions: do not exceed 2 doses per 24 hrs sucralfate [Carafate] 1 gram Tablet 1 g PO ACHS PRN (Reason: ABD PAIN) phenazopyridine [Pyridium] 200 mg Tablet 200 mg PO TID PRN (Reason: Pain) ascorbic acid (vitamin C) [Vitamin C] 500 mg Tablet 500 mg PO DAILY vitamin B complex Tablet 1 tab PO DAILY zolpidem 5 mg Tablet 5 mg PO HS PRN (Reason: Sleep) albuterol sulfate [ProAir HFA] 90 mcg/actuation Hfa Aerosol Inhaler 2 puff INHALATION QID PRN (Reason: Shortness Of Breath Or Wheezing) Senior-Megan Tablet 1 tab PO DAILY glucosamine-chondroitin 750-600 mg Tablet 1 tab PO BID triamcinolone acetonide 0.05 % Ointment 1 applic TOPICAL BID PRN (Reason: Skin Irritation) cholecalciferol (vitamin D3) [Vitamin D3] 125 mcg (5,000 unit) Tablet 125 mcg PO DAILY cod liver oil 240-1,000 mg Capsule 1 cap PO DAILY oxycodone 5 mg tablet 5 mg PO Q4H PRN (Reason: pain) ondansetron HCl [Zofran] 4 mg Tablet 4 - 8 mg PO Q8H PRN (Reason: NAUSEA/VOMITING) acetaminophen [Tylenol Extra Strength] 500 mg Tablet 500 mg PO Q4H PRN (Reason: Pain) baclofen 10 mg Tablet 10 mg PO TID PRN (Reason: MUSCLE SPASMS) ursodiol 300 mg Capsule 300 mg PO BID magnesium oxide 500 mg Tablet 500 mg PO DAILY bisacodyl [Dulcolax (bisacodyl)] 5 mg Tablet,Delayed Release (Dr/Ec) 5 mg PO DAILY PRN (Reason: Constipation) fluticasone propionate [Flonase] 50 mcg/actuation [place],Suspension 2 spray INTRANASAL DAILY Rx Instructions: administer into each nostril metformin 500 mg Tablet Extended Release 24 Hr 500 mg PO QAM metronidazole [Metrogel] 0.75 % Gel 1 applic TOPICAL BID Rx Instructions: APPLY TO FACE flaxseed Powder 1 ea PO DAILY clindamycin phosphate 1 % Solution 1 applic TOPICAL BID PRN (Reason: AFFECTED AREA) acyclovir 5 % Cream 1 applic TOPICAL BID Saccharomyces boulardii [Florastor] 250 mg Capsule 250 mg PO DAILY omeprazole-sodium bicarbonate [Zegerid OTC] 20-1.1 mg-gram Capsule 1 cap PO DAILY PRN (Reason: HEARTBURN/INDIGESTION) Creon 6,000-19,000 -30,000 unit Capsule,Delayed Release(Dr/Ec) 1 cap PO QID PRN (Reason: HEAVY MEALS) Rx Instructions: ONLY USES WITH HEAVY MEALS. Nattokinase 50 mg Capsule 100 mg PO DAILY Discharge Orders: Discharge Order (Routine); Ordered 10/17/21 Ordered By: Rajendra Mccarthy/Other Patient Handouts: Managing Type 2 Diabetes, Special Foot Care for Diabetes Admission Data Admit Date/Time: 10/17/21 03:56 Attending Provider: Rajendra Turner Admit Provider: Antonio Payne Primary Care Provider: Atif Julian Other Providers: Margarita Ayala ; Antonio Payne
--- NOTE | 2021-10-19 15:15 | Communication Note ---
Date of Service: October 17, 2021 Code 44 attestation: The patient's chart, imaging studies and medications were reviewed. She was appropriately managed and was discharged home in a stable medical condition by the attending physician. By CMS guidelines, a determination that the admission or continued stay is not medically necessary has been made by a member of the UR committee and a ph ysician for this hospital stay, therefore a Code 44 will be completed and the Inpatient admission will be changed to outpatient. Dr Wily Pederson Member UR Committee
--- NOTE | 2021-11-12 09:57 | Coding Query ---
A supporting diagnosis is required for the test/procedure performed on this patient in order for us to be reimbursed by the patient's insurance. Please provide a supporting diagnosis for the following test/procedure listed below next to the test name along with your signature. *If there is no additional diagnosis for this patient that would support the following test/procedure please document that below next to the test/procedure. Test(s)/Procedure(s) that require a supporting diagnosis: * [facility] RE[facility] DIAGNOSIS: BPPV = benign paroxysmal positional vertigo (as present in the note) DATE OF SERVICE: 10/17/21 Provider Signature: _Tawanda Turner MD Date: ___11/24/2021____ Thank you Yohannes Mcguire [facility] Information Management Once completed, please kindly fax back to [phone] For questions please call [phone] MIGUEL
== END 2021-10-17 18:30 | disposition home or self-care (01) | DRG 149 ==
LOC: ED 22:46 → INTOOBSV 10-17 03:56 → 2W 10-17 03:56

== ENCOUNTER 2022-04-05 21:47 | Inpatient (IN) ==
[2022-04-05] MEDS ORDERED: ONDANSETRON INJ 2 MG/ML 2 ML VIAL IV STA (22:14)
[2022-04-05] MEDS ORDERED: SODIUM CHLORIDE 0.9% 500 ML IV STA (22:14)
--- NOTE | 2022-04-05 22:39 | Emergency Department Note ---
History of Present Illness General Chief complaint: Illness Stated complaint: PANCREATITIS Time Seen by Provider: 04/05/22 22:06 History of Present Illness Maximum Pain Intensity: 9 This 81-year-old presents to the ER complaining of abdominal pain that was sent in by the PCP for pancreatitis Location: Abdomen Quality: Painful Severity: Moderate Duration: Past few days Timing: Started few days ago Context: Patient was concerned and came in Modifying factors: better with rest; worse with activity Patient denies chest pain, dyspnea, fevers, vomiting. She states the pain is gotten worse and is been taking Tylenol Motrin without relief. She was concerned and came in. She is had some diarrhea. Home Medications Medication Instructions Recorded Confirmed Type cyanocobalamin (vitamin B-12) 2,500 mcg sublingual DAILY 01/30/19 10/17/21 History 2,500 mcg sublingual tablet (Vitamin B-12) aspirin 325 mg tablet 325 mg PO TID PRN pain 05/31/19 10/17/21 History artificial 1 drp ophthalmic (eye) QID PRN Dry 04/12/21 10/17/21 History tears(erjdqut-xknpkbwf-vadsxjn) Eyes 0.1 %-0.3 %-0.2 % eye drops lidocaine HCl 2 % mucosal solution 5 ml PO QID PRN Acid Reflux 04/12/21 10/17/21 History (Lidocaine Viscous) lorazepam 0.5 mg tablet 0.5 mg PO TID PRN Anxiety 04/12/21 10/17/21 History melatonin 1 mg tablet 1 mg PO HS PRN Insomnia 04/12/21 10/17/21 History mupirocin calcium 2 % nasal 1 ea topical BID PRN Skin 04/12/21 10/17/21 History ointment Irritation polyethylene glycol 3350 17 17 g PO DAILY 04/12/21 10/17/21 History gram/dose oral powder albuterol sulfate 90 mcg/actuation 2 puff inhalation QID PRN 10/16/21 10/17/21 History aerosol inhaler (ProAir HFA) Shortness Of Breath Or Wheezing ascorbic acid (vitamin C) 500 mg 500 mg PO DAILY 10/16/21 10/17/21 History tablet (Vitamin C) chlorpheniramine maleate 4 mg 4 mg PO DIRECTED PRN NEEDED 10/16/21 10/17/21 History tablet PER [facility] cholecalciferol (vitamin D3) 125 125 mcg PO DAILY 10/16/21 10/17/21 History mcg (5,000 unit) tablet (Vitamin D3) geriatric tmipouow-oryh-oztg 1 tab PO DAILY 10/16/21 10/17/21 History glucosamine-chondroitin 750 mg-600 1 tab PO BID 10/16/21 10/17/21 History mg tablet omega-3 240 sg-gfm-ryt-cod liver 1 cap PO DAILY 10/16/21 10/17/21 History oil 1,000 mg-vit A-vit D3 capsule (cod liver oil) phenazopyridine 200 mg tablet 200 mg PO TID PRN Pain 10/16/21 10/17/21 History (Pyridium) sucralfate 1 gram tablet (Carafate) 1 g PO ACHS PRN ABD PAIN 10/16/21 10/17/21 History triamcinolone acetonide 0.05 % 1 applic topical BID PRN Skin 10/16/21 10/17/21 History topical ointment Irritation vitamin B complex 1 tab PO DAILY 10/16/21 10/17/21 History zolpidem 5 mg tablet 5 mg PO HS PRN Sleep 10/16/21 10/17/21 History Saccharomyces boulardii 250 mg 250 mg PO DAILY 10/17/21 10/17/21 History capsule (Florastor) acetaminophen 500 mg tablet 500 mg PO Q4H PRN Pain 10/17/21 10/17/21 History (Tylenol Extra Strength) acyclovir 5 % topical cream 1 applic topical BID 10/17/21 10/17/21 History baclofen 10 mg tablet 10 mg PO TID PRN MUSCLE SPASMS 10/17/21 10/17/21 History bisacodyl 5 mg tablet,delayed 5 mg PO DAILY PRN Constipation 10/17/21 10/17/21 History release (Dulcolax (bisacodyl)) clindamycin phosphate 1 % topical 1 applic topical BID PRN AFFECTED 10/17/21 10/17/21 History solution AREA flaxseed 1 ea PO DAILY 10/17/21 10/17/21 History fluticasone propionate 50 2 spray intranasal DAILY 10/17/21 10/17/21 History mcg/actuation nasal spray,suspension tvwhaf-vhvgezlb-wduqsfo 1 cap PO QID PRN HEAVY MEALS 10/17/21 10/17/21 History 6,000-19,000-30,000 unit capsule,delayed rel (Creon) magnesium oxide 500 mg tablet 500 mg PO DAILY 10/17/21 10/17/21 History metformin 500 mg tablet,extended 500 mg PO QAM 10/17/21 10/17/21 History release 24 hr metronidazole 0.75 % topical gel 1 applic topical BID 10/17/21 10/17/21 History omeprazole 20 mg-sodium 1 cap PO DAILY PRN 10/17/21 10/17/21 History bicarbonate 1.1 gram capsule HEARTBURN/INDIGESTION (Zegerid OTC) ondansetron HCl 4 mg tablet 4 - 8 mg PO Q8H PRN NAUSEA/VOMITING 10/17/21 10/17/21 History oxycodone 5 mg tablet 5 mg PO Q4H PRN pain 10/17/21 10/17/21 History soybean, fermented 50 mg capsule 100 mg PO DAILY 10/17/21 10/17/21 History (Nattokinase) ursodiol 300 mg capsule 300 mg PO BID 10/17/21 10/17/21 History Allergies Allergy/AdvReac Type Severity Reaction Status Date / Time Proton Pump Inhibitors Allergy Severe Chest Pain Verified 10/16/21 23:46 cimetidine Allergy Intermediate HALLUCINATI Verified 10/16/21 23:46 ONS citalopram [From Celexa] Allergy Unknown UNKNOWN--PER Verified 10/16/21 23:46 [facility] MED LIST carbamazepine AdvReac Severe pancreatiti Verified 10/16/21 23:46 s tramadol AdvReac Severe SOB, CHEST Verified 10/16/21 23:46 PAIN alendronate sodium AdvReac Intermediate Chest Pain Verified 10/16/21 23:46 [From Fosamax] ciprofloxacin AdvReac Intermediate DOES NOT Verified 10/16/21 23:46 TOLERATE epinephrine AdvReac Intermediate Tachycardia Verified 10/16/21 23:46 lidocaine AdvReac Intermediate Tachycardia Verified 10/16/21 23:46 metronidazole [From Flagyl] AdvReac Intermediate Abdominal Verified 10/16/21 23 :46 Pain prednisone AdvReac Intermediate "I heard Verified 10/16/21 23:46 voices and I felt crappy". propylene glycol AdvReac Intermediate BURNING Verified 10/16/21 23:46 SENSATION IN VAGINAL AREA sertraline AdvReac Intermediate PSYCH Verified 10/16/21 23:46 COMPLICATIONS simvastatin AdvReac Intermediate Chest Pain Verified 10/16/21 23:46 Fuvifev-MEE-PqP Reductase AdvReac Intermediate MUSCLE Verified 10/16/21 23:46 Inhibitor WEAKNESS [Xbynitf-Vrf-Kwl Reductase Inhibitor] valacyclovir [From Valtrex] AdvReac Intermediate RUQ ABD Verified 10/16/21 23:46 PAIN Ibandronic Acid AdvReac Intermediate GERD Uncoded 10/16/21 23:46 Past Med/Surg History Medical History Actinic keratosis Anxiety Chemotherapy-induced neuropathy Degenerative disc disease Dysplastic nevus GERD (gastroesophageal reflux disease) History of left breast cancer 1991--sx/chemo/radiation History of ovarian cancer diagnosed 1991--pt states it was "a 00 rating"--found after hysterectomy 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) Pancreatitis Prediabetes T2DM (type 2 diabetes mellitus) Surgical History H/O oophorectomy History of appendectomy History of basal cell carcinoma back, face tx with artemio 2000 History of bilateral breast reduction surgery History of bilateral cataract extraction History of blepharoplasty bilt eyes, upper and lower History of breast biopsy malignant History of cholecystectomy History of colonoscopy History of dilatation and curettage History of ERCP History of hysterectomy d/t fibroids History of open reduction and internal fixation (ORIF) procedure right tibia fx--hardware in place History of open reduction and internal fixation (ORIF) procedure left wrist--hardware removed History of oral surgery gum sx History of parathyroidectomy right side--benign tumor History of root canal procedure History of thumb surgery right, tissue repair History of tonsillectomy and adenoidectomy History of wisdom tooth extraction Melanoma stage 1A, negative SLN right upper back 1999 stage 1A 0.2 mm superficial spreading ? location 2018 Dr. Toro Family History Mother Family history of diabetes mellitus Family hx colonic polyps Hearing loss Hypertension Stroke Heart disease Allergies Sister Family history of diabetes mellitus Family hx colonic polyps Hypertension Cancer Heart disease Allergies Brother Cancer Other No family history of adverse response to anesthesia No family history of bleeding disorder No significant family history Denies family history of Asthma Social History Smoking Status: Never smoker Tobacco Type: Cigarettes Second Hand Exposure: No; Hx Alcohol Use: No Hx Substance Use: No Preferred Language: Vietnamese Communication Ability: Effective Community Health Agent Required: No Beliefs That Will Affect Care: None marital status: Current Living Situation: Spouse 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 Safe at Home: Yes Assistive Devices: Cane and Walker Review of Systems A total of 10 systems reviewed and were otherwise negative Physical Exam Vital Signs Vital Signs - 24 hr 04/05/22 21:55 04/05/22 22:36 04/05/22 22:38 Temperature 36.1 C L Temperature Source Temporal Artery Scan Pulse Rate 70 Pulse Rate [Right Finger] 66 Respiratory Rate 18 Respiratory Effort / Characteristics Non-Labored Spontaneous Respiratory Depth Normal Blood Pressure 136/80 Blood Pressure [Right Arm] Blood Pressure Mean 98 Blood Pressure Mean [Right Arm] Pulse Oximetry 97 97 97 Oxygen Delivery Method Room Air Room Air Room Air Sepsis Recent Fever Within 48 Hours No Sepsis New/Unexplained Change in Mental Status No Sepsis Action Taken by Nursing No Action Required 04/06/22 00:00 Temperature Temperature Source Pulse Rate Pulse Rate [Right Finger] 65 Respiratory Rate 18 Respiratory Effort / Characteristics Respiratory Depth Blood Pressure Blood Pressure [Right Arm] 103/63 Blood Pressure Mean Blood Pressure Mean [Right Arm] 76 Pulse Oximetry 97 Oxygen Delivery Method Room Air Sepsis Recent Fever Within 48 Hours Sepsis New/Unexplained Change in Mental Status Sepsis Action Taken by Nursing VITALS: Vitals are noted on the nurse's note and reviewed by myself. Vital signs stable. GENERAL: Pleasant female, in no acute distress, nondiaphoretic, well-developed well-nourished. SKIN: The skin was without rashes, erythema, edema, or bruising. There is no tenting of the skin. Capillary reflex less than 2 seconds. HEAD: Normocephalic atraumatic. EARS: External auditory canals clear, EYES: Pupils equal round and reactive to light and accommodation. Conjunctivae without injection, sclerae without icterus. Extraocular movements intact. NOSE: Patent, turbinates without inflammation or discharge. MOUTH: Mucous membranes moist. Pharynx without erythema or exudate. Uvula midline. Airway patent. Tongue does not deviate. NECK: Supple without nuchal rigidity. No lymphadenopathy. No thyromegaly. Cervical spine is nontender. No JVD. HEART: Regular rate and rhythm LUNGS: Clear to auscultation bilaterally without wheezes, rales or rhonchi. No retractions or accessory muscle use. ABDOMEN: Positive bowel sounds x 4. Normal tympanic percussion. Soft, tender to palpation mid abdomen, without masses or organomegaly. Renner sign negative. No guarding or rebound tenderness. No CVA tenderness MUSCULOSKELETAL: No muscle atrophy, erythema, or edema noted. NEURO: Patient was alert and oriented to person place and time. Normal sensation to light and sharp touch. No focal neurological deficits. Course Administered Medications Piperacillin Sod/Tazobactam Sod (Zosyn) 4.5 gm in 120 mls @ 240 mls/hr IV NOW ONE Stop: 04/06/22 01:08 Last Admin: 04/06/22 00:46 Dose: 240 mls/hr Documented By: JF Discontinued Medications Sodium Chloride (Nss) 500 mls @ 999 mls/hr IV .Q31M STA Stop: 04/05/22 22:44 Last Infusion: 04/05/22 23:21 Dose: 0 mls/hr Documented By: Admin: 04/05/22 22:46 Dose: 999 mls/hr Documented By: ANIRUDH Acetaminophen (Ofirmev) 1,000 mg in 100 mls @ 400 mls/hr IV NOW STA Stop: 04/05/22 23:04 Last Admin: 04/05/22 23:50 Dose: Not Given Documented By: JF Ioversol (Optiray 350 100ml) 89 ml IV ONCE ONE Stop: 04/05/22 23:39 Last Admin: 04/05/22 23:39 Dose: 89 ml Documented By: FATUMA Ketorolac Tromethamine (Ketorolac Tromethamine 15 Mg/Ml Vial) 10 mg IV NOW STA Stop: 04/06/22 00:27 Last Admin: 04/06/22 00:33 Dose: 10 mg Documented By: JF Morphine Sulfate (Morphine Sulfate 4 Mg/Ml 1 Ml Carp\\Vial) 4 mg IV NOW STA Stop: 04/05/22 22:15 Last Admin: 04/05/22 22:48 Dose: Not Given Documented By: ANIRUDH Ondansetron HCl (Ondansetron Inj 2 Mg/Ml 2 Ml Vial) 4 mg IV NOW STA Stop: 04/05/22 22:15 Last Admin: 04/05/22 22:46 Dose: 4 mg Documented By: ANIRUDH Medical Decision Making Medical Records Attestation: I reviewed the patient's medical records. Home Medications Current Medication List: was personally reviewed by me Laboratory Data Attestation: I reviewed the patient's lab results. 04/05/22 22:28 04/05/22 22:28 Lab Results 04/05/22 04/05/22 04/05/22 Range/Units 22:28 22:28 22:28 WBC 10.52 (4.8-10.8) K/ul RBC 3.95 (3.93-5.22) M/uL Hgb 12.5 (12.0-16.0) g/dl Hct 36.0 (34.1-44.9) % MCV 91.1 (80.0-100.0) fL MCH 31.6 (25.0-34.0) pg MCHC 34.7 (32.0-36.0) g/dL RDW Std Deviation 38.8 (36.4-46.3) fL RDW Coeff of Mack 11.7 (11.5-14.5) % Plt Count 295 (130-400) K/uL MPV 9.8 (9.4-12.3) fL Immature Gran % (Auto) 0.2 % Neut % (Auto) 54.8 % Lymph % (Auto) 34.2 % [place] % (Auto) 7.2 % Eos % (Auto) 3.0 % Baso % (Auto) 0.6 % Neut # (Auto) 5.76 (1.4-6.5) K/uL Lymph # (Auto) 3.60 H (1.2-3.4) K/uL [place] # (Auto) 0.76 (0.24-0.82) K/uL Eos # (Auto) 0.32 (0-0.50) K/uL Baso # (Auto) 0.06 (0-0.2) K/uL Immature Gran # (Auto) 0.02 (0.00-0.02) K/uL Sodium 133 L (136-145) mmol/L Potassium 3.9 (3.5-5.1) mmol/L Chloride 101 (98-107) mmol/L Carbon Dioxide 25 (21-32) mmol/L Anion Gap 7 (3-11) BUN 17 (6-23) mg/dl Creatinine 0.80 (0.6-1.2) mg/dl Est Cr Clr Drug Dosing 70.8 ml/min Est GFR ( Amer) 80.7 ml/min Est GFR (Non-Af Amer) 69.6 ml/min BUN/Creatinine Ratio 21.3 H (10-20) Glucose 102 H (70-99(Fasting)) mg/dl Calcium 9.5 (8.5-10.1) mg/dl Total Bilirubin 0.5 (0.2-1.0) mg/dl AST 20 (13-39) U/L ALT 18 (7-52) U/L Alkaline Phosphatase 70 (34-104) U/L Troponin I High Sens 5.4 (0-14) pg/ml Total Protein 8.3 (6.0-8.3) gm/dl Albumin 4.4 (3.4-5.0) gm/dl Globulin 3.9 (2.5-4.0) gm/dl Albumin/Globulin Ratio 1.1 (0.9-2) Lipase 54 (11-82) U/L Urine Color Urine Appearance (Clear) Urine pH (4.5-7.5) Ur Specific [place] (1.000-1.030) Urine Protein (Negative) Urine Glucose (UA) (Negative) Urine Ketones (Negative) Urine Blood (Negative) Urine Nitrite (Negative) Urine Bilirubin (Negative) Urine Urobilinogen (Negative) Ur Leukocyte Esterase (Negative) Urine WBC (Auto) (0-5) /hpf Urine RBC (Auto) (0-4) /hpf U Hyaline Cast (Auto) (0-5) /lpf U Epithel Cells (Auto) (0-5) /lpf Urine Bacteria (Auto) (Negative) SARS-CoV-2, RNA, NAAT NEGATIVE (NEGATIVE) 04/05/22 Range/Units 22:48 WBC (4.8-10.8) K/ul RBC (3.93-5.22) M/uL Hgb (12.0-16.0) g/dl Hct (34.1-44.9) % MCV (80.0-100.0) fL MCH (25.0-34.0) pg MCHC (32.0-36.0) g/dL RDW Std Deviation (36.4-46.3) fL RDW Coeff of Mack (11.5-14.5) % Plt Count (130-400) K/uL MPV (9.4-12.3) fL Immature Gran % (Auto) % Neut % (Auto) % Lymph % (Auto) % [place] % (Auto) % Eos % (Auto) % Baso % (Auto) % Neut # (Auto) (1.4-6.5) K/uL Lymph # (Auto) (1.2-3.4) K/uL [place] # (Auto) (0.24-0.82) K/uL Eos # (Auto) (0-0.50) K/uL Baso # (Auto) (0-0.2) K/uL Immature Gran # (Auto) (0.00-0.02) K/uL Sodium (136-145) mmol/L Potassium (3.5-5.1) mmol/L Chloride (98-107) mmol/L Carbon Dioxide (21-32) mmol/L Anion Gap (3-11) BUN (6-23) mg/dl Creatinine (0.6-1.2) mg/dl Est Cr Clr Drug Dosing ml/min Est GFR ( Amer) ml/min Est GFR (Non-Af Amer) ml/min BUN/Creatinine Ratio (10-20) Glucose (70-99(Fasting)) mg/dl Calcium (8.5-10.1) mg/dl Total Bilirubin (0.2-1.0) mg/dl AST (13-39) U/L ALT (7-52) U/L Alkaline Phosphatase (34-104) U/L Troponin I High Sens (0-14) pg/ml Total Protein (6.0-8.3) gm/dl Albumin (3.4-5.0) gm/dl Globulin (2.5-4.0) gm/dl Albumin/Globulin Ratio (0.9-2) Lipase (11-82) U/L Urine Color Yellow Urine Appearance Clear (Clear) Urine pH 6.5 (4.5-7.5) Ur Specific [place] 1.005 (1.000-1.030) Urine Protein Negative (Negative) Urine Glucose (UA) Negative (Negative) Urine Ketones Negative (Negative) Urine Blood Negative (Negative) Urine Nitrite Negative (Negative) Urine Bilirubin Negative (Negative) Urine Urobilinogen Negative (Negative) Ur Leukocyte Esterase Trace H (Negative) Urine WBC (Auto) 1-5 (0-5) /hpf Urine RBC (Auto) 0-4 (0-4) /hpf U Hyaline Cast (Auto) 0 (0-5) /lpf U Epithel Cells (Auto) 0-5 (0-5) /lpf Urine Bacteria (Auto) Negative (Negative) SARS-CoV-2, RNA, NAAT (NEGATIVE) Imaging Data Attestation: I personally reviewed and interpreted this imaging study as follows: MDM Narrative Prior records/ancillary studies reviewed. Triage Nursing notes reviewed. Additional history obtained from family. The patient's history was concerning for abdominal pain. Differential diagnosis: Etiologies such as appendicitis, diverticulitis, PUD, biliary pathology, UTI, pancreatitis, obstruction, mesenteric ischemia, aortic pathology, infections, inflammatory bowel disease, renal colic, as well as others were entertained. Physical examination findings: As above. ER treatment provided: An order was placed for continuous cardiac monitoring. The monitor shows a rate of 60-100 with a sinus rhythm per my interpretation. Morphine, Zofran, IV fluids, Zosyn On reassessment the patient felt better. Diagnostics interpreted by me: ECG: Ordered for upper abdominal pain EKG: Normal sinus, normal intervals, no acute ST-T wave changes. Septal infarct. Impression normal sinus rhythm rate of 63 interpreted by myself I think arrhythmia is unlikely. EKG shows normal sinus rhythm with no interval abnormalities such as QT prolongation or WPW. There are no findings to suggest Brugada syndrome. Cardiac monitoring in the emergency department reveals no tachycardic or bradycardic dysrhythmia. Hypertrophic cardiomyopathy was considered but there are no clear historical elements pointing toward this. EKG is not suggestive. The QRS voltage is not extremely large The labs revealed normal lipase, no worrisome leukocytosis, negative urine for infection Negative COVID Imaging studies: Chest x-ray with no acute consolidation, pneumothorax or free air per my interpretation CT ABDOMEN & PELVIS With Contrast: Postoperative changes prior cholecystectomy. Uterus is surgically absent. Subtle wall thickening involving the sigmoid colon the mid Pelvis consistent with diverticulitis. No diverticular abscess. Pancreas is unremarkable without focal abnormality. Radiologist: Cristofer Skinner MD Consultation: A consultation was placed with the hospitalist. The case was discussed and diagnostics were reviewed. The patient was evaluated in the ER for further treatment. Exam and history seem consistent with diverticulitis who is having ongoing abdominal pain and diarrhea. CAT scan was concerning for diverticulitis without abscess or perforation. Patient still moderate amount of pain. She was reassessed multiple times. Labs and imaging reviewed. Patient was given pain meds and antibiotics. Medicine was consulted and will admit the patient. Patient had no worrisome leukocytosis. Stable H&H. Urine was not infected. By the evaluation outlined above emergent etiologies such as appendicitis, PUD, biliary pathology, UTI, pancreatitis, obstruction, mesenteric ischemia, aortic pathology, inflammatory bowel disease, renal colic, as well as others were deemed relatively unlikely. The pt informed about the findings as listed above. All questions were answered and pleased with the treatment. The chart was completed utilizing [employer] Speech voice recognition software. Grammatical errors, random word insertions, pronoun errors, and incomplete sentences are an occassional consequence of this system due to software limitations, ambient noise, and hardware issues. Any formal questions or concerns about the content, text, or information contained within the body of this dictation should be directly addressed to the physician technical assistant for clarification. Impression & Plan Diverticulitis, Abdominal pain, acute, Acute diarrhea Discharge Plan Visit Data Chief Complaint: Illness Stated Complaint: PANCREATITIS ED Provider: Prashanth Sharma ED Midlevel Provider: Mary Segal Discharge Problem: Diverticulitis, Abdominal pain, acute, Acute diarrhea Patient Disposition: Admitted As Inpatient Condition: Good Forms Stand Alone Forms: [employer] [facility] [employer] Prescriptions Prescriptions: No Action aspirin 325 mg tablet 325 mg PO TID PRN (Reason: pain) cyanocobalamin (vitamin B-12) [Vitamin B-12] 2,500 mcg Tablet, Sublingual 2,500 mcg SUBLINGUAL DAILY lidocaine HCl [Lidocaine Viscous] 2 % Solution 5 ml PO QID PRN (Reason: Acid Reflux) melatonin 1 mg Tablet 1 mg PO HS PRN (Reason: Insomnia) mupirocin calcium 2 % Ointment 1 ea topical BID PRN (Reason: Skin Irritation) polyethylene glycol 3350 17 gram/dose Powder 17 g PO DAILY lorazepam 0.5 mg Tablet 0.5 mg PO TID PRN (Reason: Anxiety) artificial tear(hhdnh-prm-uhh) 0.1-0.3-0.2 % Drops 1 drp OPHTHALMIC (EYE) QID PRN (Reason: Dry Eyes) chlorpheniramine maleate 4 mg Tablet 4 mg PO DIRECTED PRN (Reason: NEEDED PER [facility]) Rx Instructions: do not exceed 2 doses per 24 hrs sucralfate [Carafate] 1 gram Tablet 1 g PO ACHS PRN (Reason: ABD PAIN) phenazopyridine [Pyridium] 200 mg Tablet 200 mg PO TID PRN (Reason: Pain) ascorbic acid (vitamin C) [Vitamin C] 500 mg Tablet 500 mg PO DAILY vitamin B complex Tablet 1 tab PO DAILY zolpidem 5 mg Tablet 5 mg PO HS PRN (Reason: Sleep) albuterol sulfate [ProAir HFA] 90 mcg/actuation Hfa Aerosol Inhaler 2 puff INHALATION QID PRN (Reason: Shortness Of Breath Or Wheezing) geriatric nkopgzwe-lxaa-sipt Tablet 1 tab PO DAILY glucosamine-chondroitin 750-600 mg Tablet 1 tab PO BID triamcinolone acetonide 0.05 % Ointment 1 applic TOPICAL BID PRN (Reason: Skin Irritation) cholecalciferol (vitamin D3) [Vitamin D3] 125 mcg (5,000 unit) Tablet 125 mcg PO DAILY cod liver oil 240-1,000 mg Capsule 1 cap PO DAILY oxycodone 5 mg tablet 5 mg PO Q4H PRN (Reason: pain) ondansetron HCl 4 mg Tablet 4 - 8 mg PO Q8H PRN (Reason: NAUSEA/VOMITING) acetaminophen [Tylenol Extra Strength] 500 mg Tablet 500 mg PO Q4H PRN (Reason: Pain) baclofen 10 mg Tablet 10 mg PO TID PRN (Reason: MUSCLE SPASMS) ursodiol 300 mg Capsule 300 mg PO BID magnesium oxide 500 mg Tablet 500 mg PO DAILY bisacodyl [Dulcolax (bisacodyl)] 5 mg Tablet,Delayed Release (Dr/Ec) 5 mg PO DAILY PRN (Reason: Constipation) fluticasone propionate 50 mcg/actuation [place],Suspension 2 spray INTRANASAL DAILY Rx Instructions: administer into each nostril metformin 500 mg Tablet Extended Release 24 Hr 500 mg PO QAM metronidazole 0.75 % Gel 1 applic TOPICAL BID Rx Instructions: APPLY TO FACE flaxseed Powder 1 ea PO DAILY clindamycin phosphate 1 % Solution 1 applic TOPICAL BID PRN (Reason: AFFECTED AREA) acyclovir 5 % Cream 1 applic TOPICAL BID Saccharomyces boulardii [Florastor] 250 mg Capsule 250 mg PO DAILY omeprazole-sodium bicarbonate [Zegerid OTC] 20-1.1 mg-gram Capsule 1 cap PO DAILY PRN (Reason: HEARTBURN/INDIGESTION) Creon 6,000-19,000 -30,000 unit Capsule,Delayed Release(Dr/Ec) 1 cap PO QID PRN (Reason: HEAVY MEALS) Rx Instructions: ONLY USES WITH HEAVY MEALS. Nattokinase 50 mg Capsule 100 mg PO DAILY Referrals Referrals: Sharad Obregon DO [Primary Care Provider] -
[2022-04-05 22:44] LABS: Basophils # (auto) 0.06 K/uL (0-0.2); Basophils % (auto) 0.6 %; Eosinophils # (auto) 0.32 K/uL (0-0.50); Hemoglobin 12.5 g/dl (12.0-16.0); Immature Granulocytes # (auto) 0.02 K/uL (0.00-0.02); Immature Granulocytes % (auto) 0.2 %; Lymphocytes % (auto) 34.2 %; Mean Corpuscular Hemoglobin 31.6 pg (25.0-34.0); Mean Corpuscular Hgb Conc 34.7 g/dL (32.0-36.0); Mean Corpuscular Volume 91.1 fL (80.0-100.0); Mean Platelet Volume 9.8 fL (9.4-12.3); Monocytes # (auto) 0.76 K/uL (0.24-0.82); Monocytes % (auto) 7.2 %; Neutrophils # (auto) 5.76 K/uL (1.4-6.5); Neutrophils % (auto) 54.8 %; Platelet Count 295 K/uL (130-400); RDW Coefficient of Variation 11.7 % (11.5-14.5); RDW Standard Deviation 38.8 fL (36.4-46.3); Red Blood Count 3.95 M/uL (3.93-5.22); White Blood Count 10.52 K/ul (4.8-10.8)
[2022-04-05] MEDS: MoRPHine SULFATE 4 MG/ML 1 ML CARP\\VIAL IV STA ×2 (22:46→22:48)
[2022-04-05] MEDS ORDERED: ACETAMINOPHEN 1,000 MG/100 ML VIAL IV STA (22:50)
[2022-04-05 23:08] LABS: Appearance Urine Clear (Clear); Bacteria Urine Automated Negative (Negative); Bilirubin Urine Negative (Negative); Blood Urine Negative (Negative); Cast Urine Automated 0 /lpf (0-5); Color Urine Yellow; Epithelial Cell Urine Auto 0-5 /lpf (0-5); Glucose Urine UA Negative (Negative); Ketones Urine Negative (Negative); Leukocyte Esterase Urine Trace (Negative); Nitrite Urine Negative (Negative); Protein Urine Negative (Negative); RBC Urine Automated 0-4 /hpf (0-4); Specific Gravity Urine 1.005 (1.000-1.030); Urobilinogen Urine Negative (Negative); pH Urine 6.5 (4.5-7.5)
[2022-04-05 23:10] LABS: Albumin Globulin Ratio 1.1 (0.9-2); Albumin Level 4.4 gm/dl (3.4-5.0); BUN Creatinine Ratio 21.3 (10-20); Bilirubin,Total 0.5 mg/dl (0.2-1.0); Calcium 9.5 mg/dl (8.5-10.1); Creatinine Clr Calc Pharmacy 70.8 ml/min; Est GFR (African American) 80.7 ml/min; Est GFR (Non-African American) 69.6 ml/min; Globulin 3.9 gm/dl (2.5-4.0); Potassium 3.9 mmol/L (3.5-5.1); Total Protein 8.3 gm/dl (6.0-8.3)
[2022-04-05 23:11] LABS: Troponin I High Sensitivity 5.4 pg/ml (0-14)
[2022-04-05] MEDS ORDERED: OPTIRAY 350 100ml IV ONE (23:38)
[2022-04-06] MEDS ORDERED: KETOROLAC TROMETHAMINE 15 MG/ML VIAL IV STA (00:26)
[2022-04-06] MEDS ORDERED: PIPERACILLIN/TAZOBACTAM 4.5 GM/120 ML BAG IV ONE (00:39)
[2022-04-06] MEDS ORDERED: SODIUM CHLORIDE 0.9% 500 ML IV ONE (01:40)
[2022-04-06] MEDS ORDERED: GI COCKTAIL ED USE PO ONE (01:40)
[2022-04-06] MEDS ORDERED: HYDROmorphone INJ 0.5 MG/0.5 ML SYR IV PRN (04:28)
[2022-04-06] MEDS ORDERED: NITROGLYCERIN SL 0.4 MG/TAB TAB SL PRN (04:28)
[2022-04-06] MEDS ORDERED: CARBOHYDRATES FOR HYPOGLYCEMIA PO PRN (04:28)
[2022-04-06] MEDS ORDERED: GLUCOSE 10 TAB/TUBE PO PRN (04:28)
[2022-04-06] MEDS ORDERED: ALBUTEROL HFA 8 GM INHALER INH PRN (04:28)
[2022-04-06] MEDS ORDERED: ONDANSETRON INJ 2 MG/ML 2 ML VIAL IV PRN (04:28)
[2022-04-06] MEDS ORDERED: GLUCOSE 40% GEL 15 GM TUBE PO PRN (04:28)
[2022-04-06] MEDS ORDERED: DEXTROSE 50% 50 ML SYRINGE IV PRN (04:28)
[2022-04-06] MEDS ORDERED: GLUCAGON FOR INJ 1 MG VIAL SQ PRN (04:28)
[2022-04-06] MEDS ORDERED: ARTIFICIAL TEARS OP PRN (04:36)
--- NOTE | 2022-04-06 04:37 | History and Physical Report ---
DATE OF ADMISSION: 04/06/2022 CHIEF COMPLAINT: Abdominal pain. HISTORY OF PRESENT ILLNESS: This is an 81-year-old female with past medical history significant for type 2 diabetes not on any medication, hyperlipidemia, history of nontoxic multinodular goiter, diabetic polyneuropathy, history of hiatal hernia with GERD, constipation, chronic kidney disease stage III, osteoporosis, idiopathic peripheral neuropathy, history of breast cancer, ovarian cancer presents with abdominal pain. The patient was in ER recently on 03/27/2022for chest pain . She says she was improved with GI cocktail. Workup was negative and she was discharged. Then, the patient developed abdominal pain and diarrhea. She saw PCP on 04/01/2022 and outpatient labs showed lipase, which was 280 and thought possible pancreatitis. As the pain was not getting better, she came here and had imaging studies showing diverticulitis. Initially her pain was in the left lower quadrant, now it is going to the right upper quadrant . Denies any blood in the stools. Was nauseous. Normal bladder movements. No chest pain, no shortness of breath, no cough, no headache, no blurred vision, no earache, no runny nose, no sore throat. She still has mild chest discomfort. ALLERGIES: PROTON PUMP INHIBITORS, FAMOTIDINE, CITALOPRAM, CARBAMAZEPINE, TRAMADOL, FOSAMAX, CIPROFLOXACIN, EPINEPHRINE, LIDOCAINE, FLAGYL, PREDNISONE, PROPYLENE GLYCOL, SERTRALINE, SIMVASTATIN, STATIN, VALACYCLOVIR, IBANDRONIC ACID. PAST MEDICAL HISTORY: As mentioned above. PAST SURGICAL HISTORY: Left breast lesion excision, colonoscopy, dental surgery, EGD, EGD with transendoscopic dilatation, EGDs with endoscopic ultrasound, ERCP with biopsy, excision of melanoma, right lumpectomy, partial parathyroidectomy for parathyroid tumor, appendectomy, oophorectomy, cataract surgery, cholecystectomy, tonsillectomy, adenoidectomy, total abdominal hysterectomy with removal of tubes. MEDICATIONS: The patient is on Tylenol Extra Strength 500 mg p.o. 4 hours p.r.n., acyclovir application topically b.i.d., albuterol 2 puffs inhalation q.i.d. p.r.n., artificial tears q.i.d. p.r.n., ascorbic acid 500 mg p.o. a.m., baclofen 10 mg p.o. t.i.d. p.r.n., chlorpheniramine 4 mg p.r.n., vitamin D 125 mcg p.o. daily, vitamin B12 2500 mcg sublingual daily, Flonase 2 sprays intranasal daily, geriatric multivitamins 1 tablet p.o. daily, lidocaine viscous 5 mL p.o. q.i.d. p.r.n., Creon 1 capsule p.o. with meals, lorazepam 0.5 mg p.o. t.i.d. p.r.n., magnesium oxide 400 mg p.o. a.m., melatonin 1 mg p.o. at bedtime p.r.n., metformin 500 mg p.o. a.m., omega fish oil 1 capsule p.o. a.m., Zofran 4 mg p.o. q. 8 hours p.r.n., MiraLax 17 grams p.o. daily, Florastor 250 mg p.o. daily, sucralfate 1 gram p.o. a.c. and at bedtime p.r.n., triamcinolone cream p.r.n., vitamin B complex 1 tablet p.o. daily. FAMILY HISTORY: Significant for father had lung cancer, mother had diabetes, eye problems, heart disorder, thyroid disorder; brother has mental disorder, depression, prostate cancer. SOCIAL HISTORY: . No smoking, no alcohol, no drug use. REVIEW OF SYSTEMS: As per HPI. Rest of review of systems is negative. PHYSICAL EXAMINATION: GE Patient is alert and oriented. Not in acute distress; Vitals; HEENT: Atraumatic, Pupils equal and round and reactive to light Neck: NO neck masses seen, CVS s1 and s2 heard, Regular rate and rhythm, No murmurs RS: Clear to auscultation bilaterally, No accessory muscles used, NO wheezing or crackles. 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 Ext : No edema or erythema ASSESSMENT AND PLAN: An 81-year-old female who presents with abdominal pain and found to have a diverticulitis. 1. Abdominal pain, diverticulitis. Starting on Zosyn, IV fluids, n.p.o., pain control, IV antiemetics. Consult surgery in the a.m. Some mild chest discomfort ,Possibly GERD We will follow serial enzymes. She will be monitored in the [employer] tele. 2. History of diabetes: Not on any medication. We will place her on insulin sliding scale. Follow HbA1c levels. 3. History of breast cancer in , status post surgery, chemo and radiation. 4. History of ovarian cancer in 1989, status post surgery. 5. Chronic kidney disease, stage II. We will follow the labs. Presents with creatinine of 0.8. 6. Deep venous thrombosis prophylaxis with Lovenox. DISPOSITION: Closely monitor in the [employer] tele. PT/OT prior to discharge. Social service to help with discharge planning. Job ID: [id number] [facility]PITALRosa
[2022-04-06] MEDS ORDERED: MELATONIN 3 MG TAB PO PRN (04:38)
[2022-04-06] MEDS: SODIUM CHLORIDE 0.9% 1000ML 1,000 ML IV SCH ×2 (05:04→13:13)
[2022-04-06] MEDS: PIPERACILLIN/TAZOBACTAM 3.375 GM in DEXTROSE 5% 100 ML IV SCH ×3 (05:04→21:11)
[2022-04-06] MEDS: INSULIN ASPART PER UNIT SC SCH ×4 (05:10→20:35)
--- NOTE | 2022-04-06 08:25 | XRay Report ---
XR chest 1V portable CLINICAL HISTORY: Chest pain, nonspecific TECHNIQUE: Single frontal radiograph of the chest was obtained. Comparison: Comparison is made to chest radiograph 03/27/2022 FINDINGS: No lines and tubes are seen. Surgical clips are noted in the left axilla. The cardiomediastinal silho uette is stable. Mild atherosclerotic calcifications are seen. The lungs are clear. No evidence of pl eural effusion or pneumothorax. IMPRESSION: No acute chest disease. ACT 112: Negative or not required by law. Electronically signed by: Ming Sofia M.D. 04/06/2022 8:24 AM
[2022-04-06 08:26] LABS: Basophils # (auto) 0.07 K/uL (0-0.2); Eosinophils # (auto) 0.32 K/uL (0-0.50); Eosinophils % (auto) 4.6 %; Hematocrit (blood only) 33.7 % (34.1-44.9); Hemoglobin 11.6 g/dl (12.0-16.0); Immature Granulocytes # (auto) 0.02 K/uL (0.00-0.02); Immature Granulocytes % (auto) 0.3 %; Lymphocytes # (auto) 3.13 K/uL (1.2-3.4); Lymphocytes % (auto) 45.1 %; Mean Corpuscular Hemoglobin 31.8 pg (25.0-34.0); Mean Corpuscular Hgb Conc 34.4 g/dL (32.0-36.0); Mean Corpuscular Volume 92.3 fL (80.0-100.0); Mean Platelet Volume 9.7 fL (9.4-12.3); Monocytes # (auto) 0.59 K/uL (0.24-0.82); Monocytes % (auto) 8.5 %; Neutrophils # (auto) 2.81 K/uL (1.4-6.5); Neutrophils % (auto) 40.5 %; Platelet Count 267 K/uL (130-400); RDW Coefficient of Variation 11.7 % (11.5-14.5); RDW Standard Deviation 39.7 fL (36.4-46.3); Red Blood Count 3.65 M/uL (3.93-5.22); White Blood Count 6.94 K/ul (4.8-10.8)
[2022-04-06] MEDS: FLUTICASONE PROPIONATE NA SPR 16 GM BTL NAE SCH (08:44)
[2022-04-06] MEDS: CEROVITE ADV FORMULA TAB PO SCH (08:45)
[2022-04-06] MEDS: CHOLECALCIFEROL 5,000 UNITS 125 MCG TAB PO SCH (08:45)
[2022-04-06] MEDS: MAGNESIUM OXIDE 400 MG TAB PO SCH (08:46)
[2022-04-06] MEDS: CYANOCOBALAMIN (B-12) 2,500 MCG TABLET SL SCH (08:46)
[2022-04-06] MEDS: VITAMIN B COMPLEX TAB PO SCH (08:46)
[2022-04-06] MEDS: SACCHAROMYCES BOULARDII 250 MG CAP PO SCH (08:46)
[2022-04-06] MEDS: ASCORBIC ACID 500 MG TAB PO SCH (08:46)
[2022-04-06] MEDS: ENOXAPARIN INJ 40 MG/0.4 ML SYR SQ SCH (08:46)
[2022-04-06 08:48] LABS: Estimated Average Glucose 134 mg/dl; Hemoglobin A1C 6.3 % (4.5-5.6)
--- NOTE | 2022-04-06 08:50 | CT Scan Report ---
CT abd pelvis IV con only CLINICAL HISTORY: ? pancreatitis TECHNIQUE: Helical axial images of the abdomen and pelvis were obtained and displayed. Automated dose lowering techniques and/or adjustment according to patient size were utilized for this exam. This e xam was performed with intravenous contrast. CT DOSE: 491.65 mGy.cm COMPARISON: Comparison is made to CT abdomen pelvis 04/05/2021 FINDINGS: Lower chest: Bibasilar atelectasis versus scarring is seen. Liver: Unremarkable. No focal lesions are seen. Gallbladder and biliary tree: Patient is status post cholecystectomy. Physiologic prominence of the b iliary ducts is noted. Pancreas: Unremarkable, no focal lesions. Spleen: Splenule is incidentally noted. Adrenals: Unremarkable. Kidneys and ureters: Unremarkable. Bladder: Unremarkable. Reproductive organs: Unremarkable. Bowel: Diverticulosis is seen without evidence of diverticulitis. There is mild stranding about the m idportion of the sigmoid colon. No drainable fluid collection is seen and there is no free air. Lymph nodes Retroperitoneal: Unremarkable. Pelvic: Unremarkable. Mesenteric: Unremarkable. Peritoneum: Normal. Vessels: Unremarkable. Abdominal wall: A fat-containing umbilical hernia is seen. Bones: Degenerative changes in the visualized spine. IMPRESSION: Findings may represent mild sigmoid diverticulitis without evidence of abscess or perforation. The pa ncreas is normal. Additional findings as above. ACT 112: Negative or not required by law. Electronically signed by: Ming Sofia M.D. 04/06/2022 8:49 AM
[2022-04-06 08:52] LABS: BUN Creatinine Ratio 16.7 (10-20); Calcium 8.9 mg/dl (8.5-10.1); Est GFR (African American) 64.7 ml/min; Est GFR (Non-African American) 55.9 ml/min; Magnesium 2.1 mg/dl (1.7-2.4)
[2022-04-06] MEDS: ACETAMINOPHEN 325 MG TAB PO PRN (09:39)
--- NOTE | 2022-04-06 13:17 | Surgery Consultation ---
Date of Consultation April 06, 2022 Assessment & Plan (1) Diverticulitis: Plan 81-year-old woman presenting with acute uncomplicated diverticulitis. Agree with IV antibiotic treatment and gentle fluid hydration. No surgical intervention is required at this time. We will continue to monitor her. May advance diet as tolerated. History of Present Illness Reason for Consultation: Diverticulitis Requesting Physician: Shaneka Menezes MD Attending Physician: Shaneka Menezes MD History of Present Illness 81-year-old woman presents with a 2-week history of pain in her lower abdomen. She was first diagnosed with pancreatitis but subsequently the pain worsened and was located on the left lower quadrant. She denies nausea or vomiting. She denies fevers or chills. She was seen emergency department yesterday and CT scan demonstrated acute diverticulitis. There is no abscess or perforation. She states that she is feeling better than yesterday. She denies significant pain today. Allergies Allergy/AdvReac Type Severity Reaction Status Date / Time Proton Pump Inhibitors Allergy Severe Chest Pain Verified 10/16/21 23:46 cimetidine Allergy Intermediate HALLUCINATI Verified 10/16/21 23:46 ONS citalopram [From Celexa] Allergy Unknown UNKNOWN--PER Verified 10/16/21 23:46 [facility] MED LIST carbamazepine AdvReac Severe pancreatiti Verified 10/16/21 23:46 s tramadol AdvReac Severe SOB, CHEST Verified 10/16/21 23:46 PAIN alendronate sodium AdvReac Intermediate Chest Pain Verified 10/16/21 23:46 [From Fosamax] ciprofloxacin AdvReac Intermediate DOES NOT Verified 10/16/21 23:46 TOLERATE epinephrine AdvReac Intermediate Tachycardia Verified 10/16/21 23:46 lidocaine AdvReac Intermediate Tachycardia Verified 10/16/21 23:46 metronidazole [From Flagyl] AdvReac Intermediate Abdominal Verified 10/16/21 23:46 Pain prednisone AdvReac Intermediate "I heard Verified 10/16/21 23:46 voices and I felt crappy". propylene glycol AdvReac Intermediate BURNING Verified 10/16/21 23:46 SENSATION IN VAGINAL AREA sertraline AdvReac Intermediate PSYCH Verified 10/16/21 23:46 COMPLICATIONS simvastatin AdvReac Intermediate Chest Pain Verified 10/16/21 23:46 Heocccq-GVS-RoQ Reductase AdvReac Intermediate MUSCLE Verified 10/16/21 23:46 Inhibitor WEAKNESS [Fqypgwm-Qwp-Rgj Reductase Inhibitor] valacyclovir [From Valtrex] AdvReac Intermediate RUQ ABD Verified 10/16/21 23:46 PAIN Ibandronic Acid AdvReac Intermediate GERD Uncoded 10/16/21 23:46 Home Medications Medication Instructions Recorded Confirmed Type cyanocobalamin (vitamin B-12) 2,500 mcg sublingual DAILY 01/30/19 04/06/22 History 2,500 mcg sublingual tablet (Vitamin B-12) artificial 1 drp ophthalmic (eye) QID PRN Dry 04/12/21 04/06/22 History tears(aeuvtqt-ashxyyso-kervicj) Eyes 0.1 %-0.3 %-0.2 % eye drops lidocaine HCl 2 % mucosal solution 5 ml PO QID PRN Acid Reflux 04/12/21 04/06/22 History (Lidocaine Viscous) lorazepam 0.5 mg tablet 0.5 mg PO TID PRN Anxiety 04/12/21 04/06/22 History melatonin 1 mg tablet 1 mg PO HS PRN Insomnia 04/12/21 04/06/22 History mupirocin calcium 2 % nasal 1 ea topical BID PRN Skin 04/12/21 04/06/22 History ointment Irritation polyethylene glycol 3350 17 17 g PO DAILY 04/12/21 04/06/22 History gram/dose oral powder albuterol sulfate 90 mcg/actuation 2 puff inhalation QID PRN 10/16/21 04/06/22 History aerosol inhaler (ProAir HFA) Shortness Of Breath Or Wheezing ascorbic acid (vitamin C) 500 mg 500 mg PO QAM 10/16/21 04/06/22 History tablet (Vitamin C) chlorpheniramine maleate 4 mg 4 mg PO DIRECTED PRN NEEDED 10/16/21 04/06/22 History tablet PER [facility] cholecalciferol (vitamin D3) 125 125 mcg PO DAILY 10/16/21 04/06/22 History mcg (5,000 unit) tablet (Vitamin D3) geriatric jzddjyby-ohgg-uvtv 1 tab PO DAILY 10/16/21 04/06/22 History sucralfate 1 gram tablet (Carafate) 1 g PO ACHS PRN ABD PAIN 10/16/21 04/06/22 History triamcinolone acetonide 0.05 % 1 applic topical BID PRN Skin 10/16/21 04/06/22 History topical ointment Irritation vitamin B complex 1 tab PO DAILY 10/16/21 04/06/22 History Saccharomyces boulardii 250 mg 250 mg PO DAILY 10/17/21 04/06/22 History capsule (Florastor) acetaminophen 500 mg tablet 500 mg PO Q4H PRN Pain 10/17/21 04/06/22 History (Tylenol Extra Strength) acyclovir 5 % topical cream 1 applic topical BID 10/17/21 04/06/22 History baclofen 10 mg tablet 10 mg PO TID PRN MUSCLE SPASMS 10/17/21 04/06/22 History clindamycin phosphate 1 % topical 1 applic topical BID PRN AFFECTED 10/17/21 04/06/22 History solution AREA flaxseed 1 ea PO DAILY 10/17/21 04/06/22 History fluticasone propionate 50 2 spray intranasal DAILY 10/17/21 04/06/22 History mcg/actuation nasal spray,suspension magnesium oxide 500 mg tablet 500 mg PO QAM 10/17/21 04/06/22 History metformin 500 mg tablet,extended 500 mg PO QAM 10/17/21 04/06/22 History release 24 hr metronidazole 0.75 % topical gel 1 applic topical BID 10/17/21 04/06/22 History omeprazole 20 mg-sodium 1 cap PO DAILY PRN 10/17/21 04/06/22 History bicarbonate 1.1 gram capsule HEARTBURN/INDIGESTION (Zegerid OTC) ondansetron HCl 4 mg tablet 4 mg PO Q8H PRN Nausea 10/17/21 04/06/22 History boron citrate 3 mg tablet 3 mg PO TID 04/06/22 04/06/22 History lipase 3,000-protease 1 cap PO WM 04/06/22 04/06/22 History 9,500-amylase 15,000 unit capsule, delayed rel (Creon) omega 2-vec-wiu-fish oil 1,000 mg 1 cap PO QAM 04/06/22 04/06/22 History (120 mg-180 mg) capsule (Fish Oil) Patient History Medical History Actinic keratosis Anxiety Chemotherapy-induced neuropathy Degenerative disc disease Dysplastic nevus GERD (gastroesophageal reflux disease) History of left breast cancer 1991--sx/chemo/radiation History of ovarian cancer diagnosed 1991--pt states it was "a 00 rating"--found after hysterectomy 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) Pancreatitis Prediabetes T2DM (type 2 diabetes mellitus) Surgical History H/O oophorectomy History of appendectomy History of basal cell carcinoma back, face tx with ulloa 2000 History of bilateral breast reduction surgery History of bilateral cataract extraction History of blepharoplasty bilt eyes, upper and lower History of breast biopsy malignant History of cholecystectomy History of colonoscopy History of dilatation and curettage History of ERCP History of hysterectomy d/t fibroids History of open reduction and internal fixation (ORIF) procedure right tibia fx--hardware in place History of open reduction and internal fixation (ORIF) procedure left wrist--hardware removed History of oral surgery gum sx History of parathyroidectomy right side--benign tumor History of root canal procedure History of thumb surgery right, tissue repair History of tonsillectomy and adenoidectomy History of wisdom tooth extraction Melanoma stage 1A, negative SLN right upper back 1999 stage 1A 0.2 mm superficial spreading ? location 2017 Dr. Toro Family History Mother Family history of diabetes mellitus Family hx colonic polyps Hearing loss Hypertension Stroke Heart disease Allergies Sister Family history of diabetes mellitus Family hx colonic polyps Hypertension Cancer Heart disease Allergies Brother Cancer Other No family history of adverse response to anesthesia No family history of bleeding disorder No significant family history Denies family history of Asthma Social History Smoking Status: Never smoker Tobacco Type: Cigarettes Second Hand Exposure: No; Do You Dip or Chew Tobacco: No; Hx Alcohol Use: No Hx Substance Use: No Preferred Language: Khmer Communication Ability: Effective 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 Plan 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: No Beliefs That Will Affect Care: None marital status: Current Living Situation: Spouse current occupational status: retired Other Information That Helps Us Care for You: 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[employer] 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 Safe at Home: Yes Safety Concerns: Feels Safe At This Time Assistive Devices: Glasses Review of Systems Review of Systems: All systems reviewed & are unremarkable except as noted in HPI & below Physical Exam Constitutional: WD/WN, vitals as above Eyes: PERRL, conjunctivae normal, anicteric sclerae Neck: trachea midline, no thyromegaly Respiratory: normal respiratory effort; no respiratory distress and no labored breathing Cardiovascular: Rate/Rhythm: regular rate and regular rhythm Gastrointestinal (Abdomen): Inspection/Auscultation: abdomen normal to inspection; abdomen not distended Percussion/Palpation: + abdomen tender (Mild TTP in lower quadrants) and abdomen soft; no guarding and abdomen not rigid Skin: no rashes, warm and dry Psychiatric: A+Ox3, euthymic affect Results & Data ([facility]) Vital Signs (Past 12 Hours) Vital Signs Temp Pulse Pulse Resp BP Pulse Ox O2 Del Method 04/06/22 11:12 36.6 C 54 L 18 117/77 95 Room Air 04/06/22 10:39 36.7 C 55 L 18 122/67 96 Room Air 04/06/22 07:51 36.5 C 52 L 18 97/56 L 95 Room Air 04/06/22 05:11 70 04/06/22 05:11 36.5 C 58 L 18 118/68 96 Room Air 04/06/22 03:30 53 L 16 115/62 94 Room Air 04/06/22 01:34 57 L 16 112/64 97 Room Air 04/06/22 01:33 58 L 14 75/43 L 95 Room Air 04/06/22 01:46 59 L 16 121/60 95 Room Air 04/06/22 01:30 57 L 14 88/48 L 94 Room Air Laboratory Results 04/06/22 04/06/22 04/06/22 Range/Units 12:38 08:04 08:04 WBC (4.8-10.8) K/ul RBC (3.93-5.22) M/uL Hgb (12.0-16.0) g/dl Hct (34.1-44.9) % MCV (80.0-100.0) fL MCH (25.0-34.0) pg MCHC (32.0-36.0) g/dL RDW Std Deviation (36.4-46.3) fL RDW Coeff of Mack (11.5-14.5) % Plt Count (130-400) K/uL MPV (9.4-12.3) fL Immature Gran % (Auto) % Neut % (Auto) % Lymph % (Auto) % [place] % (Auto) % Eos % (Auto) % Baso % (Auto) % Neut # (Auto) (1.4-6.5) K/uL Lymph # (Auto) (1.2-3.4) K/uL [place] # (Auto) (0.24-0.82) K/uL Eos # (Auto) (0-0.50) K/uL Baso # (Auto) (0-0.2) K/uL Immature Gran # (Auto) (0.00-0.02) K/uL Sodium 137 (136-145) mmol/L Potassium 4.0 (3.5-5.1) mmol/L Chloride 105 (98-107) mmol/L Carbon Dioxide 29 (21-32) mmol/L Anion Gap 3 (3-11) BUN 16 (6-23) mg/dl Creatinine 0.96 (0.6-1.2) mg/dl Est Cr Clr Drug Dosing 59.0 ml/min Est GFR ( Amer) 64.7 ml/min Est GFR (Non-Af Amer) 55.9 ml/min BUN/Creatinine Ratio 16.7 (10-20) Glucose 102 H (70-99(Fasting)) mg/dl POC Glucose (70-99) mg/dl Estimat Average Glucose 134 mg/dl Hemoglobin A1c 6.3 H (4.5-5.6) % Calcium 8.9 (8.5-10.1) mg/dl Magnesium 2.1 (1.7-2.4) mg/dl Total Bilirubin (0.2-1.0) mg/dl AST (13-39) U/L ALT (7-52) U/L Alkaline Phosphatase (34-104) U/L Troponin I High Sens Pending 10.0 D (0-14) pg/ml Total Protein (6.0-8.3) gm/dl Albumin (3.4-5.0) gm/dl Globulin (2.5-4.0) gm/dl Albumin/Globulin Ratio (0.9-2) Lipase (11-82) U/L Urine Color Urine Appearance (Clear) Urine pH (4.5-7.5) Ur Specific Wallace (1.000-1.030) Urine Protein (Negative) Urine Glucose (UA) (Negative) Urine Ketones (Negative) Urine Blood (Negative) Urine Nitrite (Negative) Urine Bilirubin (Negative) Urine Urobilinogen (Negative) Ur Leukocyte Esterase (Negative) Urine WBC (Auto) (0-5) /hpf Urine RBC (Auto) (0-4) /hpf U Hyaline Cast (Auto) (0-5) /lpf U Epithel Cells (Auto) (0-5) /lpf Urine Bacteria (Auto) (Negative) SARS-CoV-2, RNA, NAAT (NEGATIVE) 04/06/22 04/06/22 04/05/22 Range/Units 08:04 05:09 22:48 WBC 6.94 (4.8-10.8) K/ul RBC 3.65 L (3.93-5.22) M/uL Hgb 11.6 L (12.0-16.0) g/dl Hct 33.7 L (34.1-44.9) % MCV 92.3 (80.0-100.0) fL MCH 31.8 (25.0-34.0) pg MCHC 34.4 (32.0-36.0) g/dL RDW Std Deviation 39.7 (36.4-46.3) fL RDW Coeff of Mack 11.7 (11.5-14.5) % Plt Count 267 (130-400) K/uL MPV 9.7 (9.4-12.3) fL Immature Gran % (Auto) 0.3 % Neut % (Auto) 40.5 % Lymph % (Auto) 45.1 % [place] % (Auto) 8.5 % Eos % (Auto) 4.6 % Baso % (Auto) 1.0 % Neut # (Auto) 2.81 (1.4-6.5) K/uL Lymph # (Auto) 3.13 (1.2-3.4) K/uL [place] # (Auto) 0.59 (0.24-0.82) K/uL Eos # (Auto) 0.32 (0-0.50) K/uL Baso # (Auto) 0.07 (0-0.2) K/uL Immature Gran # (Auto) 0.02 (0.00-0.02) K/uL Sodium (136-145) mmol/L Potassium (3.5-5.1) mmol/L Chloride (98-107) mmol/L Carbon Dioxide (21-32) mmol/L Anion Gap (3-11) BUN (6-23) mg/dl Creatinine (0.6-1.2) mg/dl Est Cr Clr Drug Dosing ml/min Est GFR ( Amer) ml/min Est GFR (Non-Af Amer) ml/min BUN/Creatinine Ratio (10-20) Glucose (70-99(Fasting)) mg/dl POC Glucose 108 H (70-99) mg/dl Estimat Average Glucose mg/dl Hemoglobin A1c (4.5-5.6) % Calcium (8.5-10.1) mg/dl Magnesium (1.7-2.4) mg/dl Total Bilirubin (0.2-1.0) mg/dl AST (13-39) U/L ALT (7-52) U/L Alkaline Phosphatase (34-104) U/L Troponin I High Sens (0-14) pg/ml Total Protein (6.0-8.3) gm/dl Albumin (3.4-5.0) gm/dl Globulin (2.5-4.0) gm/dl Albumin/Globulin Ratio (0.9-2) Lipase (11-82) U/L Urine Color Yellow Urine Appearance Clear (Clear) Urine pH 6.5 (4.5-7.5) Ur Specific Wallace 1.005 (1.000-1.030) Urine Protein Negative (Negative) Urine Glucose (UA) Negative (Negative) Urine Ketones Negative (Negative) Urine Blood Negative (Negative) Urine Nitrite Negative (Negative) Urine Bilirubin Negative (Negative) Urine Urobilinogen Negative (Negative) Ur Leukocyte Esterase Trace H (Negative) Urine WBC (Auto) 1-5 (0-5) /hpf Urine RBC (Auto) 0-4 (0-4) /hpf U Hyaline Cast (Auto) 0 (0-5) /lpf U Epithel Cells (Auto) 0-5 (0-5) /lpf Urine Bacteria (Auto) Negative (Negative) SARS-CoV-2, RNA, NAAT (NEGATIVE) 01/08/23 01/08/23 01/08/23 Range/Units 22:28 22:28 22:28 WBC 10.52 (4.8-10.8) K/ul RBC 3.95 (3.93-5.22) M/uL Hgb 12.5 (12.0-16.0) g/dl Hct 36.0 (34.1-44.9) % MCV 91.1 (80.0-100.0) fL MCH 31.6 (25.0-34.0) pg MCHC 34.7 (32.0-36.0) g/dL RDW Std Deviation 38.8 (36.4-46.3) fL RDW Coeff of Mack 11.7 (11.5-14.5) % Plt Count 295 (130-400) K/uL MPV 9.8 (9.4-12.3) fL Immature Gran % (Auto) 0.2 % Neut % (Auto) 54.8 % Lymph % (Auto) 34.2 % [place] % (Auto) 7.2 % Eos % (Auto) 3.0 % Baso % (Auto) 0.6 % Neut # (Auto) 5.76 (1.4-6.5) K/uL Lymph # (Auto) 3.60 H (1.2-3.4) K/uL [place] # (Auto) 0.76 (0.24-0.82) K/uL Eos # (Auto) 0.32 (0-0.50) K/uL Baso # (Auto) 0.06 (0-0.2) K/uL Immature Gran # (Auto) 0.02 (0.00-0.02) K/uL Sodium 133 L (136-145) mmol/L Potassium 3.9 (3.5-5.1) mmol/L Chloride 101 (98-107) mmol/L Carbon Dioxide 25 (21-32) mmol/L Anion Gap 7 (3-11) BUN 17 (6-23) mg/dl Creatinine 0.80 (0.6-1.2) mg/dl Est Cr Clr Drug Dosing 70.8 ml/min Est GFR ( Amer) 80.7 ml/min Est GFR (Non-Af Amer) 69.6 ml/min BUN/Creatinine Ratio 21.3 H (10-20) Glucose 102 H (70-99(Fasting)) mg/dl POC Glucose (70-99) mg/dl Estimat Average Glucose mg/dl Hemoglobin A1c (4.5-5.6) % Calcium 9.5 (8.5-10.1) mg/dl Magnesium (1.7-2.4) mg/dl Total Bilirubin 0.5 (0.2-1.0) mg/dl AST 20 (13-39) U/L ALT 18 (7-52) U/L Alkaline Phosphatase 70 (34-104) U/L Troponin I High Sens 5.4 (0-14) pg/ml Total Protein 8.3 (6.0-8.3) gm/dl Albumin 4.4 (3.4-5.0) gm/dl Globulin 3.9 (2.5-4.0) gm/dl Albumin/Globulin Ratio 1.1 (0.9-2) Lipase 54 (11-82) U/L Urine Color Urine Appearance (Clear) Urine pH (4.5-7.5) Ur Specific Wallace (1.000-1.030) Urine Protein (Negative) Urine Glucose (UA) (Negative) Urine Ketones (Negative) Urine Blood (Negative) Urine Nitrite (Negative) Urine Bilirubin (Negative) Urine Urobilinogen (Negative) Ur Leukocyte Esterase (Negative) Urine WBC (Auto) (0-5) /hpf Urine RBC (Auto) (0-4) /hpf U Hyaline Cast (Auto) (0-5) /lpf U Epithel Cells (Auto) (0-5) /lpf Urine Bacteria (Auto) (Negative) SARS-CoV-2, RNA, NAAT NEGATIVE (NEGATIVE) Diagnostic Findings CT abd pelvis IV con only CLINICAL HISTORY: ? pancreatitis TECHNIQUE: Helical axial images of the abdomen and pelvis were obtained and displayed. Automated dose lowering techniques and/or adjustment according to patient size were utilized for this exam. This exam was performed with intravenous contrast. CT DOSE: 491.65 mGy.cm COMPARISON: Comparison is made to CT abdomen pelvis 04/05/2021 FINDINGS: Lower chest: Bibasilar atelectasis versus scarring is seen. Liver: Unremarkable. No focal lesions are seen. Gallbladder and biliary tree: Patient is status post cholecystectomy. Physiologic prominence of the biliary ducts is noted. Pancreas: Unremarkable, no focal lesions. Spleen: Splenule is incidentally noted. Adrenals: Unremarkable. Kidneys and ureters: Unremarkable. Bladder: Unremarkable. Reproductive organs: Unremarkable. Bowel: Diverticulosis is seen without evidence of diverticulitis. There is mild stranding about the midportion of the sigmoid colon. No drainable fluid collection is seen and there is no free air. Lymph nodes Retroperitoneal: Unremarkable. Pelvic: Unremarkable. Mesenteric: Unremarkable. Peritoneum: Normal. Vessels: Unremarkable. Abdominal wall: A fat-containing umbilical hernia is seen. Bones: Degenerative changes in the visualized spine. IMPRESSION: Findings may represent mild sigmoid diverticulitis without evidence of abscess or perforation. The pancreas is normal. Additional findings as above.
--- NOTE | 2022-04-06 15:00 | Hospitalist Progress Note ---
Date of Service April 06, 2022 Assessment & Plan (1) Diverticulitis: Plan Abdominal pain Diverticulitis x mild sigmoid Patient presents with abdominal pain and diarrhea Admitting CTAP positive for mild sigmoid diverticulitis. No pancreatitis. Admitting lipase WNL. Patient started on Zosyn, will continue for now, surgery evaluated, will advance diet as tolerated, currently on clears. Other chronic medical conditions: Diabetes not on any medication, breast cancer in status post surgery chemo and radiation, ovarian cancer in 1989 status post surgery, CKD stage II --- resume home meds as able DVT prophylaxis: Lovenox Full code Disposition: Likely tomorrow with advancement of diet/if patient tolerates without belly pain, and on oral antibiotics. Admission and Anticipated Discharge Date Admission Date: April 06, 2022 Subjective Patient seen and examined at bedside as a follow-up of diverticulitis. Patient was lying in bed, on room air, NAD, denies any new acute event overnight, patient is n.p.o., reports belly pain getting better, denies headache/dizziness/chest pain/palpitation/sore throat/cough/other review of symptoms. Patient had 2 loose bowel movements in the a.m. without blood in it per patient. Physical Exam Physical Exam: GENERAL: Alert and oriented x3. NAD, on RA. HEENT: No pallor, no icterus. Pupils equal, round and reactive to light. Oral mucosa moist. NECK: No JVD, no neck masses. HEART: S1 and S2 heard. Regular rate and rhythm. No murmur, no gallop. RESPIRATORY SYSTEM: Normal AP diameter. No accessory muscle use. No wheezing, no crackles. ABDOMEN: Soft, bowel sounds present, lower quadrants tender, no distention. CENTRAL NERVOUS SYSTEM: No facial droop. Speech is clear. Obeys simple commands. Moves extremities. EXTREMITIES: No edema, no erythema seen. Results & Data Results & Data ([facility]) Vital Signs (Past 12 Hours) Vital Signs Temp Pulse Pulse Resp BP Pulse Ox O2 Del Method 04/06/22 11:12 36.6 C 54 L 18 117/77 95 Room Air 04/06/22 10:39 36.7 C 55 L 18 122/67 96 Room Air 04/06/22 07:51 36.5 C 52 L 18 97/56 L 95 Room Air 04/06/22 05:11 70 04/06/22 05:11 36.5 C 58 L 18 118/68 96 Room Air 04/06/22 03:30 53 L 16 115/62 94 Room Air
--- NOTE | 2022-04-06 15:16 | Electrocardiogram Report ---
Test Reason : Blood Pressure : / mmHG Vent. 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
--- NOTE | 2022-04-06 15:16 | Electrocardiogram Report ---
Test Reason : Blood Pressure : / mmHG Vent. Rate : 063 BPM Atrial Rate : 063 BPM P-R Int : 196 ms QRS Dur : 082 ms QT Int : 412 ms P-R-T Axes : 076 012 037 degrees QTc Int : 421 ms Normal sinus rhythm Possible Old Septal infarct Abnormal ECG When compared with ECG of 27-MAR-2022 07:09, Criteria for Septal infarct now present Otherwise no significant change Confirmed by Jj Stinson ([id number]) on 04/06/2022 3:15:44 PM Referred By: REFERRED SELF Confirmed By:Jj Stinson
[2022-04-07] MEDS ORDERED: ALUMINUM/MAGNESIUM/SIMETH (MAALOX MAX) 30 ML UDC PO PRN (02:18)
[2022-04-07] MEDS: ACETAMINOPHEN 325 MG TAB PO PRN ×2 (02:24→22:55)
[2022-04-07] MEDS: SODIUM CHLORIDE 0.9% 1000ML 1,000 ML IV SCH (02:50)
[2022-04-07] MEDS: PIPERACILLIN/TAZOBACTAM 3.375 GM in DEXTROSE 5% 100 ML IV SCH ×3 (05:34→21:08)
[2022-04-07 07:28] LABS: Hematocrit (blood only) 32.4 % (34.1-44.9); Hemoglobin 11.2 g/dl (12.0-16.0); Mean Corpuscular Hemoglobin 31.2 pg (25.0-34.0); Mean Corpuscular Hgb Conc 34.6 g/dL (32.0-36.0); Mean Corpuscular Volume 90.3 fL (80.0-100.0); Platelet Count 272 K/uL (130-400); RDW Coefficient of Variation 11.7 % (11.5-14.5); Red Blood Count 3.59 M/uL (3.93-5.22)
--- NOTE | 2022-04-07 08:00 | Electrocardiogram Report ---
Test Reason : Blood Pressure : / mmHG Vent. Rate : 053 BPM Atrial Rate : 053 BPM P-R Int : 216 ms QRS Dur : 084 ms QT Int : 422 ms P-R-T Axes : 069 035 058 degrees QTc Int : 395 ms Poor data quality, interpretation may be adversely affected Sinus bradycardia with 1st degree A-V block with Premature atrial complexes Abnormal ECG When compared with ECG of 06-APR-2022 01:38, Criteria for Septal infarct are no longer Present Confirmed by Jj Stinson ([id number]) on 04/07/2022 7:59:53 AM Referred By: REFERRED SELF Confirmed By:Jj Stinson
[2022-04-07 08:01] LABS: BUN Creatinine Ratio 14.8 (10-20); Calcium 8.7 mg/dl (8.5-10.1); Est GFR (African American) 79.5 ml/min; Est GFR (Non-African American) 68.6 ml/min; Magnesium 2.1 mg/dl (1.7-2.4); Phosphorus 2.9 mg/dl (2.5-4.9); Potassium 3.5 mmol/L (3.5-5.1)
[2022-04-07] MEDS: FLUTICASONE PROPIONATE NA SPR 16 GM BTL NAE SCH (09:31)
[2022-04-07] MEDS: INSULIN ASPART PER UNIT SC SCH ×4 (09:31→20:44)
[2022-04-07] MEDS: CHOLECALCIFEROL 5,000 UNITS 125 MCG TAB PO SCH (09:32)
[2022-04-07] MEDS: SACCHAROMYCES BOULARDII 250 MG CAP PO SCH (09:32)
[2022-04-07] MEDS: CYANOCOBALAMIN (B-12) 2,500 MCG TABLET SL SCH (09:32)
[2022-04-07] MEDS: CEROVITE ADV FORMULA TAB PO SCH (09:32)
[2022-04-07] MEDS: MAGNESIUM OXIDE 400 MG TAB PO SCH (09:32)
[2022-04-07] MEDS: ASCORBIC ACID 500 MG TAB PO SCH (09:32)
[2022-04-07] MEDS: VITAMIN B COMPLEX TAB PO SCH (09:32)
[2022-04-07] MEDS: ENOXAPARIN INJ 40 MG/0.4 ML SYR SQ SCH (09:33)
[2022-04-07 12:13] LABS: D Dimer 690 ug/L FEU (0-500)
--- NOTE | 2022-04-07 12:53 | Surgery Progress Note ---
Date of Service April 07, 2022 Assessment & Plan (1) Diverticulitis: Plan 81-year-old woman presenting with acute uncomplicated diverticulitis. afebrile, no leukocytosis + diarrhea today Plan: continue antibiotics okay to advance to soft diet, advised to take slowly d-dimer, cxr, troponin and EKG already ordered by medicine team, continue current management if diarrhea persists increases in frequency would consider stool studies but likely just reactive to IV fluids, abx. Discussed with Dr. Morris who agrees with above. See addendum for further recommendations/plan. Admission and Anticipated Discharge Date Admission Date: April 06, 2022 Subjective not feeling as well today, now back to how she was feeling Wednesday. Had three episode of watery diarrhea with specks of stool in it. Some mild nausea no vomiting not much abdominal pain +hungry "Have chest pressure, breathing okay but not feeling like I am moving air as well. Just had an xray. " tolerated full liquids okay, would like something more to eat. Physical Exam Constitutional: WD/WN, vitals as above cooperative and comfortable; no acute distress, not ill appearing and not frail appearing Neck: normal visual inspection and trachea midline Respiratory: normal respiratory effort, lungs clear to auscultation Cardiovascular: RRR, no murmur, no edema Gastrointestinal (Abdomen): Inspection/Auscultation: abdomen normal to inspection and normal bowel sounds; abdomen not distended Percussion/Palpation: + abdomen tender (in mid abdomen on deep palpation) and abdomen soft; no guarding and abdomen not rigid Skin: no rashes, warm and dry Psychiatric: Orientation: alert and oriented x 3 Results & Data ([facility]) Vital Signs (Past 12 Hours) Vital Signs Temp Pulse Pulse Resp BP Pulse Ox O2 Del Method 04/07/22 11:56 36.5 C 60 19 136/75 97 Room Air 04/07/22 07:20 36.5 C 55 L 19 128/80 95 Room Air 04/07/22 07:10 59 L 04/07/22 01:44 60 Laboratory Results 04/07/22 04/07/22 04/07/22 Range/Units 11:32 11:27 07:55 WBC (4.8-10.8) K/ul RBC (3.93-5.22) M/uL Hgb (12.0-16.0) g/dl Hct (34.1-44.9) % MCV (80.0-100.0) fL MCH (25.0-34.0) pg MCHC (32.0-36.0) g/dL RDW Std Deviation (36.4-46.3) fL RDW Coeff of Mack (11.5-14.5) % Plt Count (130-400) K/uL MPV (9.4-12.3) fL D-Dimer 690 H* (0-500) ug/L FEU Sodium (136-145) mmol/L Potassium (3.5-5.1) mmol/L Chloride (98-107) mmol/L Carbon Dioxide (21-32) mmol/L Anion Gap (3-11) BUN (6-23) mg/dl Creatinine (0.6-1.2) mg/dl Est Cr Clr Drug Dosing ml/min Est GFR ( Amer) ml/min Est GFR (Non-Af Amer) ml/min BUN/Creatinine Ratio (10-20) Glucose (70-99(Fasting)) mg/dl POC Glucose 86 104 H (70-99) mg/dl Calcium (8.5-10.1) mg/dl Phosphorus (2.5-4.9) mg/dl Magnesium (1.7-2.4) mg/dl Troponin I High Sens (0-14) pg/ml 04/07/22 04/07/22 04/06/22 Range/Units 06:59 06:59 20:12 WBC 5.90 (4.8-10.8) K/ul RBC 3.59 L (3.93-5.22) M/uL Hgb 11.2 L (12.0-16.0) g/dl Hct 32.4 L (34.1-44.9) % MCV 90.3 (80.0-100.0) fL MCH 31.2 (25.0-34.0) pg MCHC 34.6 (32.0-36.0) g/dL RDW Std Deviation 38.0 (36.4-46.3) fL RDW Coeff of Mack 11.7 (11.5-14.5) % Plt Count 272 (130-400) K/uL MPV 10.0 (9.4-12.3) fL D-Dimer (0-500) ug/L FEU Sodium 140 (136-145) mmol/L Potassium 3.5 (3.5-5.1) mmol/L Chloride 108 H (98-107) mmol/L Carbon Dioxide 28 (21-32) mmol/L Anion Gap 4 (3-11) BUN 12 (6-23) mg/dl Creatinine 0.81 (0.6-1.2) mg/dl Est Cr Clr Drug Dosing 70.0 ml/min Est GFR ( Amer) 79.5 ml/min Est GFR (Non-Af Amer) 68.6 ml/min BUN/Creatinine Ratio 14.8 (10-20) Glucose 114 H (70-99(Fasting)) mg/dl POC Glucose 89 (70-99) mg/dl Calcium 8.7 (8.5-10.1) mg/dl Phosphorus 2.9 (2.5-4.9) mg/dl Magnesium 2.1 (1.7-2.4) mg/dl Troponin I High Sens (0-14) pg/ml 04/06/22 04/06/22 Range/Units 16:59 12:38 WBC (4.8-10.8) K/ul RBC (3.93-5.22) M/uL Hgb (12.0-16.0) g/dl Hct (34.1-44.9) % MCV (80.0-100.0) fL MCH (25.0-34.0) pg MCHC (32.0-36.0) g/dL RDW Std Deviation (36.4-46.3) fL RDW Coeff of Mack (11.5-14.5) % Plt Count (130-400) K/uL MPV (9.4-12.3) fL D-Dimer (0-500) ug/L FEU Sodium (136-145) mmol/L Potassium (3.5-5.1) mmol/L Chloride (98-107) mmol/L Carbon Dioxide (21-32) mmol/L Anion Gap (3-11) BUN (6-23) mg/dl Creatinine (0.6-1.2) mg/dl Est Cr Clr Drug Dosing ml/min Est GFR ( Amer) ml/min Est GFR (Non-Af Amer) ml/min BUN/Creatinine Ratio (10-20) Glucose (70-99(Fasting)) mg/dl POC Glucose 133 H (70-99) mg/dl Calcium (8.5-10.1) mg/dl Phosphorus (2.5-4.9) mg/dl Magnesium (1.7-2.4) mg/dl Troponin I High Sens 6.2 (0-14) pg/ml
--- NOTE | 2022-04-07 12:55 | XRay Report ---
XR chest 1V portable CLINICAL HISTORY: Chest congestion. COMPARISON STUDY: Chest radiograph March 2022. Chest CT April 05, 2021. FINDINGS: Left axillary surgical clips are incidentally noted. Lung volumes are normal. Lungs are laverne ar. There is no pneumothorax or pleural effusion. Cardiac size is normal. Mediastinal contours are no rmal. There is no evidence for pulmonary edema. IMPRESSION: No acute cardiopulmonary findings. ACT 112: Negative or not required by law. Electronically signed by: Doyle Vance M.D. 04/07/2022 12:54 PM
[2022-04-07] MEDS: BACLOFEN 10 MG TAB PO PRN (13:13)
[2022-04-07] MEDS: LORazepam 0.5 MG TAB PO PRN (13:13)
--- NOTE | 2022-04-07 14:00 | Hospitalist Progress Note ---
Date of Service April 07, 2022 Assessment & Plan (1) Diverticulitis: Plan Abdominal pain Sigmoid diverticulitis x mild Patient presents with abdominal pain and diarrhea Admitting CTAP positive for mild sigmoid diverticulitis. No pancreatitis. Admitting lipase WNL. Patient started on Zosyn 04/06, will continue for now, surgery evaluated, will advance diet as tolerated, currently on low fiber. If diarrhea continues, get C. difficile. Patient reports improvement in her lower belly pain and is tolerating diet. Chest congestion: Patient reports feeling congested chest since evening of 04/06. Troponin x3 were negative at admission, 04/07 D-dimer elevated at 690, EKG on 04/07 AM with no acute ST or T changes, 04/07 CXR with no acute findings. D-dimer adjusted for age is negative for. Likely could be developing congestion due to IV fluid in the hospital versus her anxiety. Discontinue IV fluid, continue to monitor, as needed Ativan on board. Other chronic medical conditions: Diabetes not on any medication, breast cancer in status post surgery chemo and radiation, ovarian cancer in 1989 status post surgery, CKD stage II --- resume home meds as able DVT prophylaxis: Lovenox Full code Disposition: Likely tomorrow with advancement of diet/if patient tolerates without belly pain, and on oral antibiotics. Discussed plan of care at bedside after my a.m. rounds and again over the telephone during the day. Answered multiple of her questions including her questions regarding her chronic diseases. d/w surgery. Admission and Anticipated Discharge Date Admission Date: April 06, 2022 Subjective Patient seen and examined at bedside as a follow-up of diverticulitis. Patient was lying in bed, on room air, NAD, reports feeling chest tightness and not being able to sleep overnight, has admitting saturation on room air, reports belly pain getting better, is tolerating diet advancement, denies headache/dizziness/chest pain/palpitation/sore throat/cough/other review of symptoms. Patient had 3 loose bowel movements in the a.m. without blood in it p er patient. Physical Exam Physical Exam: GENERAL: Alert and oriented x3. NAD, on RA. HEENT: No pallor, no icterus. Pupils equal, round and reactive to light. Oral mucosa moist. NECK: No JVD, no neck masses. HEART: S1 and S2 heard. Regular rate and rhythm. No murmur, no gallop. RESPIRATORY SYSTEM: Normal AP diameter. No accessory muscle use. No wheezing, no crackles. ABDOMEN: Soft, bowel sounds present, lower quadrants "tender per patient", no grimacing noticed, no distention. CENTRAL NERVOUS SYSTEM: No facial droop. Speech is clear. Obeys simple commands. Moves extremities. EXTREMITIES: No edema, no erythema seen. Results & Data Results & Data ([facility]) Vital Signs (Past 12 Hours) Vital Signs Temp Pulse Pulse Resp BP Pulse Ox O2 Del Method 04/07/22 11:56 36.5 C 60 19 136/75 97 Room Air 04/07/22 07:20 36.5 C 55 L 19 128/80 95 Room Air 04/07/22 07:10 59 L
[2022-04-08] MEDS: BACLOFEN 10 MG TAB PO PRN (00:31)
[2022-04-08] MEDS: LORazepam 0.5 MG TAB PO PRN (00:31)
[2022-04-08] MEDS: PIPERACILLIN/TAZOBACTAM 3.375 GM in DEXTROSE 5% 100 ML IV SCH ×2 (05:22→13:21)
[2022-04-08 07:44] LABS: BUN Creatinine Ratio 13.8 (10-20); Calcium 9.1 mg/dl (8.5-10.1); Creatinine Clr Calc Pharmacy 65.1 ml/min; Est GFR (African American) 72.9 ml/min; Est GFR (Non-African American) 62.9 ml/min; Phosphorus 3.5 mg/dl (2.5-4.9); Potassium 3.7 mmol/L (3.5-5.1)
[2022-04-08] MEDS: INSULIN ASPART PER UNIT SC SCH ×2 (08:37→11:50)
[2022-04-08] MEDS: FLUTICASONE PROPIONATE NA SPR 16 GM BTL NAE SCH (09:30)
[2022-04-08] MEDS: CEROVITE ADV FORMULA TAB PO SCH (09:31)
[2022-04-08] MEDS: MAGNESIUM OXIDE 400 MG TAB PO SCH (09:31)
[2022-04-08] MEDS: VITAMIN B COMPLEX TAB PO SCH (09:31)
[2022-04-08] MEDS: ENOXAPARIN INJ 40 MG/0.4 ML SYR SQ SCH (09:31)
[2022-04-08] MEDS: ASCORBIC ACID 500 MG TAB PO SCH (09:31)
[2022-04-08] MEDS: CHOLECALCIFEROL 5,000 UNITS 125 MCG TAB PO SCH (09:31)
[2022-04-08] MEDS: CYANOCOBALAMIN (B-12) 2,500 MCG TABLET SL SCH (09:31)
[2022-04-08] MEDS: SACCHAROMYCES BOULARDII 250 MG CAP PO SCH (09:31)
--- NOTE | 2022-04-08 11:20 | Electrocardiogram Report ---
Test Reason : Blood Pressure : / mmHG Vent. Rate : 057 BPM Atrial Rate : 057 BPM P-R Int : 212 ms QRS Dur : 090 ms QT Int : 430 ms P-R-T Axes : 047 032 051 degrees QTc Int : 418 ms Sinus bradycardia with 1st degree A-V block Nonspecific ST abnormality Abnormal ECG When compared with ECG of 07-APR-2022 05:37, Premature atrial complexes are no longer Present Confirmed by Chang Hidalgo ([id number] on 04/08/2022 11:20:31 AM Referred By: REFERRED SELF Confirmed By:Chang Hidalgo
[2022-04-08] MEDS ORDERED: PANCREAZE (LIPASE 10,500U) CAP PO SCH (11:30)
--- NOTE | 2022-04-08 13:22 | Discharge Summary ---
Date of Service April 08, 2022 Admission HPI Per Admitting Provider DATE OF ADMISSION: 04/06/2022 CHIEF COMPLAINT: Abdominal pain. HISTORY OF PRESENT ILLNESS: This is an 81-year-old female with past medical history significant for type 2 diabetes not on any medication, hyperlipidemia, history of nontoxic multinodular goiter, diabetic polyneuropathy, history of hiatal hernia with GERD, constipation, chronic kidney disease stage III, osteoporosis, idiopathic peripheral neuropathy, history of breast cancer, ovarian cancer presents with abdominal pain. The patient was in ER recently on 03/27/2022for chest pain . She says she was improved with GI cocktail. Workup was negative and she was discharged. Then, the patient developed abdominal pain and diarrhea. She saw PCP on 04/01/2022 and outpatient labs showed lipase, which was 280 and thought possible pancreatitis. As the pain was not getting better, she came here and had imaging studies showing diverticulitis. Initially her pain was in the left lower quadrant, now it is going to the right upper quadrant . Denies any blood in the stools. Was nauseous. Normal bladder movements. No chest pain, no shortness of breath, no cough, no headache, no blurred vision, no earache, no runny nose, no sore throat. She still has mild chest discomfort. ALLERGIES: PROTON PUMP INHIBITORS, FAMOTIDINE, CITALOPRAM, CARBAMAZEPINE, TRAMADOL, FOSAMAX, CIPROFLOXACIN, EPINEPHRINE, LIDOCAINE, FLAGYL, PREDNISONE, PROPYLENE GLYCOL, SERTRALINE, SIMVASTATIN, STATIN, VALACYCLOVIR, IBANDRONIC ACID. PAST MEDICAL HISTORY: As mentioned above. PAST SURGICAL HISTORY: Left breast lesion excision, colonoscopy, dental surgery, EGD, EGD with transendoscopic dilatation, EGDs with endoscopic ultrasound, ERCP with biopsy, excision of melanoma, right lumpectomy, partial parathyroidectomy for parathyroid tumor, appendectomy, oophorectomy, cataract surgery, cholecystectomy, tonsillectomy, adenoidectomy, total abdominal hysterectomy with removal of tubes. MEDICATIONS: The patient is on Tylenol Extra Strength 500 mg p.o. 4 hours p.r.n., acyclovir application topically b.i.d., albuterol 2 puffs inhalation q.i.d. p.r.n., artificial tears q.i.d. p.r.n., ascorbic acid 500 mg p.o. a.m., baclofen 10 mg p.o. t.i.d. p.r.n., chlorpheniramine 4 mg p.r.n., vitamin D 125 mcg p.o. daily, vitamin B12 2500 mcg sublingual daily, Flonase 2 sprays intranasal daily, geriatric multivitamins 1 tablet p.o. daily, lidocaine viscous 5 mL p.o. q.i.d. p.r.n., Creon 1 capsule p.o. with meals, lorazepam 0.5 mg p.o. t.i.d. p.r.n., magnesium oxide 400 mg p.o. a.m., melatonin 1 mg p.o. at bedtime p.r.n., metformin 500 mg p.o. a.m., omega fish oil 1 capsule p.o. a.m., Zofran 4 mg p.o. q. 8 hours p.r.n., MiraLax 17 grams p.o. daily, Florastor 250 mg p.o. daily, sucralfate 1 gram p.o. a.c. and at bedtime p.r.n., triamcinolone cream p.r.n., vitamin B complex 1 tablet p.o. daily. FAMILY HISTORY: Significant for father had lung cancer, mother had diabetes, eye problems, heart disorder, thyroid disorder; brother has mental disorder, depression, prostate cancer. SOCIAL HISTORY: . No smoking, no alcohol, no drug use. REVIEW OF SYSTEMS: As per HPI. Rest of review of systems is negative. Admission Exam Per Admitting Provider GE Patient is alert and oriented. Not in acute distress; Vitals; HEENT: Atraumatic, Pupils equal and round and reactive to light Neck: NO neck masses seen, CVS s1 and s2 heard, Regular rate and rhythm, No murmurs RS: Clear to auscultation bilaterally, No accessory muscles used, NO wheezing or crackles. Abd: Soft Bowel sounds present, Mild diffuse tenderness, no guarding or rigidity, No distension LE[employer]IAN [employer] 2-12 grossly intact, Non focal. Ext : No edema or erythema Principal Diagnosis Mild sigmoid diverticulitis Anxiety Discharge Exam GENERAL: Alert and oriented x3. NAD, on RA. HEENT: No pallor, no icterus. Pupils equal, round and reactive to light. Oral mucosa moist. NECK: No JVD, no neck masses. HEART: S1 and S2 heard. Regular rate and rhythm. No murmur, no gallop. RESPIRATORY SYSTEM: Normal AP diameter. No accessory muscle use. No wheezing, no crackles. ABDOMEN: Soft, bowel sounds present, lower quadrants "tender per patient", no grimacing noticed, no distention. CENTRAL NERVOUS SYSTEM: No facial droop. Speech is clear. Obeys simple commands. Moves extremities. EXTREMITIES: No edema, no erythema seen. Discharge Data Allergies Allergy/AdvReac Type Severity Reaction Status Date / Time Proton Pump Inhibitors Allergy Severe Chest Pain Verified 10/16/21 23:46 cimetidine Allergy Intermediate HALLUCINATI Verified 10/16/21 23:46 ONS citalopram [From Celexa] Allergy Unknown UNKNOWN--PER Verified 10/16/21 23:46 [facility] MED LIST carbamazepine AdvReac Severe pancreatiti Verified 10/16/21 23:46 s tramadol AdvReac Severe SOB, CHEST Verified 10/16/21 23:46 PAIN alendronate sodium AdvReac Intermediate Chest Pain Verified 10/16/21 23:46 [From Fosamax] ciprofloxacin AdvReac Intermediate DOES NOT Verified 10/16/21 23:46 TOLERATE epinephrine AdvReac Intermediate Tachycardia Verified 10/16/21 23:46 lidocaine AdvReac Intermediate Tachycardia Verified 10/16/21 23:46 metronidazole [From Flagyl] AdvReac Intermediate Abdominal Verified 10/16/21 23:46 Pain prednisone AdvReac Intermediate "I heard Verified 10/16/21 23:46 voices and I felt crappy". propylene glycol AdvReac Intermediate BURNING Verified 10/16/21 23:46 SENSATION IN VAGINAL AREA sertraline AdvReac Intermediate PSYCH Verified 10/16/21 23:46 COMPLICATIONS simvastatin AdvReac Intermediate Chest Pain Verified 10/16/21 23:46 Gslxmwy-WKD-DfB Reductase AdvReac Intermediate MUSCLE Verified 10/16/21 23:46 Inhibitor WEAKNESS [Zlktmui-Wus-Vyt Reductase Inhibitor] valacyclovir [From Valtrex] AdvReac Intermediate RUQ ABD Verified 10/16/21 23:46 PAIN Ibandronic Acid AdvReac Intermediate GERD Uncoded 10/16/21 23:46 Consultations 04/06/22 00:33 ED Decision to Admit Stat 04/06/22 08:00 Consult General Surgery Routine Ordered Studies 04/05/22 22:14 CT abd pelvis IV con only Stat Hospital Course (1) Diverticulitis: Plan 81-year-old lady was managed for the following while in hospital: Abdominal pain Sigmoid diverticulitis x mild Patient presented with abdominal pain and diarrhea Admitting CTAP positive for mild sigmoid diverticulitis. No pancreatitis. Admitting lipase WNL. Patient started on Zosyn 04/06, tolerating diet well, reports significant improvement in her lower belly pain, no further diarrhea, C. difficile done yesterday was negative. Will discharge her on Augmentin to complete the 10-day course. Patient to follow-up with either general surgery or GI doctor for evaluation for colonoscopy in 8 to 10 weeks upon discharge. Patient made aware and verbalized understanding. Patient to continue with her home probiotic as prior. Chest congestion: Patient reports feeling congested chest since evening of 04/06. Troponin x3 were negative at admission, 04/07 D-dimer elevated at 690, EKG on 04/07 AM with no acute ST or T changes, 04/07 CXR with no acute findings. D-dimer adjusted for age is negative for. Likely could be developing congestion due to IV fluid in the hospital versus her anxiety. Improved with use of as needed Ativan per patient. Other chronic medical conditions: Diabetes not on any medication, breast cancer in status post surgery chemo and radiation, ovarian cancer in 1989 status post surgery, CKD stage II --- resume home meds as able. Answered further questions regarding her various chronic medical conditions besides her current acute illness. DVT prophylaxis: Lovenox while in hospital Full code Patient being discharged home with following instruction at the point of discharge: Follow-up with your PCP in a week time and likely you will need blood labs CBC/CMP/magnesium/phosphorus. For your sigmoid diverticulitis, you have been evaluated by surgery while in hospital. You will need to follow-up with surgery doctor in 2 months time for possible evaluation for colonoscopy. For your anxiety, recommend to continue to follow-up with your PCP for ongoing management. You will be discharged on antibiotic for your sigmoid diverticulitis, please complete the course. Continue to take soft diet for next 2 weeks upon discharge and then you can gradually move towards your regular consistency diet. Take your medications as prescribed. Please make sure that you are able to get your medications today by calling your pharmacy before you leave the hospital so that your treatment continuity is not broken. Home Health Attestation I certify that this patient is under my care and that I, or a physicians esl instructional assistant working with me, had a face to-face encounter that meets the home health blwf-gw-ffmy encounter requirements with this patient. The encounter with the patient was in whole, or in part, for the following medical condition, which is the primary reason for home health care (list medical condition): I certify that, based on my findings, the following services are medically necessary home health services: My clinical findings support the need for the above services because: Further, I certify that my clinical findings support that this patient is homebound (i.e. absences from home require considerable and taxing effort and are for medical reasons or uatsdin services or infrequently or of short duration when for other reasons) because: Certification for Home Health Services: Based on the above findings, I certify that this patient is confined to the home and needs intermittent residential care, physical therapy and/or speech therapy or continues to need occupational therapy. The patient is under my care, and I have initiated the establishment of the plan of care. This patient will be followed by a physician who will periodically review the plan of care. Total Time Total Time Spent Total Time Spent (In Minutes): 55 Discharge Plan Discharge Items Patient Disposition: Home - Self-Care Reason For Visit: ABDOMINAL PAIN Discharge Diagnosis: Mild sigmoid diverticulitis Anxiety Condition on Discharge: Good Activity: Resume your previous activity Non-emergency contact: Primary Care Provider Call non-emergency contact if: you have any medication questions, your symptoms worsen and your temperature is above 101 Follow-up/Referrals: Sharad Obregon DO [Primary Care Provider] - (Date & Time 04/13/2022 11:00 AM Provider Jj Burks MD Department Family [facility] ) Diet: Heart Healthy and Low Fiber Addtl Attending Provider Instructions: Follow-up with your PCP in a week time and likely you will need blood labs CBC/CMP/magnesium/phosphorus. For your sigmoid diverticulitis, you have been evaluated by surgery while in hospital. You will need to follow-up with surgery doctor in 2 months time for possible evaluation for colonoscopy. For your anxiety, recommend to continue to follow-up with your PCP for ongoing management. You will be discharged on antibiotic for your sigmoid diverticulitis, please complete the course. Continue to take soft diet for next 2 weeks upon discharge and then you can gradually move towards your regular consistency diet. Take your medications as prescribed. Please make sure that you are able to get your medications today by calling your pharmacy before you leave the hospital so that your treatment continuity is not broken. Pending Studies at Discharge: No Stand-Alone Forms: [facility] [employer], Smoking Cessation Medications and DC Order Prescriptions: New amoxicillin-pot clavulanate 875-125 mg tablet 1 tab PO BID 8 Days Qty: 16 0RF Continued cyanocobalamin (vitamin B-12) [Vitamin B-12] 2,500 mcg Tablet, Sublingual 2,500 mcg SUBLINGUAL DAILY lidocaine HCl [Lidocaine Viscous] 2 % Solution 5 ml PO QID PRN (Reason: Acid Reflux) melatonin 1 mg Tablet 1 mg PO HS PRN (Reason: Insomnia) mupirocin calcium 2 % Ointment 1 ea topical BID PRN (Reason: Skin Irritation) polyethylene glycol 3350 17 gram/dose Powder 17 g PO DAILY lorazepam 0.5 mg Tablet 0.5 mg PO TID PRN (Reason: Anxiety) artificial tear(gtobv-kqd-emi) 0.1-0.3-0.2 % Drops 1 drp OPHTHALMIC (EYE) QID PRN (Reason: Dry Eyes) chlorpheniramine maleate 4 mg Tablet 4 mg PO DIRECTED PRN (Reason: NEEDED PER [facility]) Rx Instructions: do not exceed 2 doses per 24 hrs sucralfate [Carafate] 1 gram Tablet 1 g PO ACHS PRN (Reason: ABD PAIN) ascorbic acid (vitamin C) [Vitamin C] 500 mg Tablet 500 mg PO QAM vitamin B complex Tablet 1 tab PO DAILY albuterol sulfate [ProAir HFA] 90 mcg/actuation Hfa Aerosol Inhaler 2 puff INHALATION QID PRN (Reason: Shortness Of Breath Or Wheezing) geriatric fxfpxilc-bphd-xhsd Tablet 1 tab PO DAILY Rx Instructions: [employer]mans senior multivitamin without iron triamcinolone acetonide 0.05 % Ointment 1 applic TOPICAL BID PRN (Reason: Skin Irritation) cholecalciferol (vitamin D3) [Vitamin D3] 125 mcg (5,000 unit) Tablet 125 mcg PO DAILY ondansetron HCl 4 mg Tablet 4 mg PO Q8H PRN (Reason: Nausea) acetaminophen [Tylenol Extra Strength] 500 mg Tablet 500 mg PO Q4H PRN (Reason: Pain) baclofen 10 mg Tablet 10 mg PO TID PRN (Reason: MUSCLE SPASMS) magnesium oxide 500 mg Tablet 500 mg PO QAM fluticasone propionate 50 mcg/actuation [place],Suspension 2 spray INTRANASAL DAILY Rx Instructions: administer into each nostril metformin 500 mg Tablet Extended Release 24 Hr 500 mg PO QAM metronidazole 0.75 % Gel 1 applic TOPICAL BID Rx Instructions: APPLY TO FACE flaxseed Powder 1 ea PO DAILY clindamycin phosphate 1 % Solution 1 applic TOPICAL BID PRN (Reason: AFFECTED AREA) acyclovir 5 % Cream 1 applic TOPICAL BID Saccharomyces boulardii [Florastor] 250 mg Capsule 250 mg PO DAILY omeprazole-sodium bicarbonate [Zegerid OTC] 20-1.1 mg-gram Capsule 1 cap PO DAILY PRN (Reason: HEARTBURN/INDIGESTION) omega 4-xtp-wkn-fish oil [Fish Oil] 1,000 mg (120 mg-180 mg) Capsule 1 cap PO QAM boron citrate 3 mg Tablet 3 mg PO TID Creon 3,000-9,500- 15,000 unit Capsule,Delayed Release(Dr/Ec) 1 cap PO WM Discharge Orders: Discharge Order (Routine); Ordered 04/08/22 Ordered By: Shaneka Mccarthy/Other Patient Handouts: Managing Type 2 Diabetes Admission Data Admit Date/Time: 04/06/22 02:34 Attending Provider: Shaneka Menezes Admit Provider: Antonio Payne Primary Care Provider: Sharad Obregon Other Providers: Antonio Payne ; Jose M Morris ; Jc Mendoza ; Nicolette Joe ; Swapna Figueroa ; Matthew Miranda ; John Wesley ; Emma Jimenez ; Lakisha Patten ; Cal Dunn Jr ; Dave Manuel ; Joe Rizo ; Elle Carson
== END 2022-04-08 14:41 | disposition home or self-care (01) | DRG 392 ==
LOC: ED 21:47 → SUATTDRO 04-06 02:34 → 2N 04-06 02:34

== ENCOUNTER 2024-09-28 13:35 | Inpatient (IN) ==
[2024-09-28 14:17] LABS: Hematocrit (blood only) 36.3 % (37.0-47.0); Hemoglobin 12.4 g/dl (12.0-16.0); Immature Granulocytes # (auto) 0.02 K/uL (0.01-0.20); Immature Granulocytes % (auto) 0.4 %; Mean Corpuscular Hemoglobin 31.9 pg (25.0-34.0); Mean Corpuscular Volume 93.3 fL (80.0-100.0); Platelet Count 296 K/uL (130-400); RDW Standard Deviation 41.7 fL (36.4-46.3); Red Blood Count 3.89 M/uL (4.20-5.40); White Blood Count 5.61 K/ul (4.8-10.8)
[2024-09-28 14:33] LABS: Alanine Aminotransferase 23.0 U/L (7-52); Albumin Globulin Ratio 1.4 (0.9-2); Alkaline Phosphatase 53.0 U/L (34-104); Anion Gap 7.0 (3-11); Bilirubin,Total 0.3 mg/dl (0.2-1.0); Blood Urea Nitrogen 21.0 mg/dl (6-23); Calcium 9.6 mg/dl (8.6-10.3); Carbon Dioxide 25.0 mmol/L (21-32); Chloride 106.0 mmol/L (98-107); Creatinine Clr Calc Pharmacy 74.8 ml/min; Globulin 3.2 gm/dl (2.5-4.0); Glucose 127.0 mg/dl (70-99(Fasting)); Potassium 4.3 mmol/L (3.5-5.1); Sodium 138.0 mmol/L (136-145); Total Protein 7.6 gm/dl (6.0-8.3)
--- NOTE | 2024-09-28 14:37 | XRay Report ---
XR chest 1V portable CLINICAL HISTORY: Chest pain, nonspecific COMPARISON STUDY: 08/06/2024 FINDINGS: Heart size and pulmonary vasculature are normal. No consolidation or pleural effusion. No p neumothorax. Stable left axillary surgical clips. IMPRESSION: No acute findings. ACT 112: Negative or not required by law. Electronically signed by: Chuy Dacosta M.D. 09/28/2024 2:35 PM
[2024-09-28 14:45] LABS: INR 0.9 (0.9-1.1); Partial Thromboplastin Time 25 Seconds (21-31); Prothrombin Time 10.2 Seconds (9.0-12.0)
--- NOTE | 2024-09-28 15:09 | Emergency Department Note ---
Impression & Plan WRIGHT (dyspnea on exertion) ED Provider Note NAME: SRINI SILVEIRA AGE: 84 SEX: F : 1940 ARRIVES VIA: Walk-In INFORMANT: Patient, ED PROVIDER(S): Ryan Fulton MD CHIEF COMPLAINT: Shortness of breath MEDICAL DECISION MAKING: Patient presents due to concern for shortness of breath with exertion. EKG with motion artifact a repeat was ordered no obvious arrhythmia. IV was established and blood work was obtained along with a chest x-ray. After discussion as the patient already had labs completed along with a chest x-ray and EKG prior to me seeing her we discussed the D-dimer and possible angiography of the chest given the patient had recently traveled to the patient does not have any asymmetric leg swelling or calf pain. Blood work shows a normal white count hemoglobin and platelet count the patient's kidney function is unremarkable with normal electrolytes. Prerenal azotemia noted. BSG 127. Troponin and BNP are unremarkable. The patient's chest x-ray unremarkable. D-dimer elevated at 600 and so the patient did have a CT angiography ordered. CT did show groundglass opacities attenuation which could be valvulitis. Monitor enlargement of the chambers of the heart. The patient did undergo ambulatory pulse ox trial and was 90%. Given that she was borderline I was concerned about her going home as the patient has had worsening symptoms. The patient was ordered a BioFire DuoNeb treatment and IV methylprednisolone the patient is agreeable to staying in hospital. I did speak with the on-call hospitalist Dr. Pederson and the patient was admitted to the medicine service. Discussion w/ other healthcare providers: Dr. Pederson inpatient medicine service Prior /Outside records reviewed: Reviewed parva discharge summary from April 08, [address] Menezes. Patient with a known history of type 2 diabetes hyperlipidemia multinodular goiter polyneuropathy hiatal hernia GERD constipation CKD 3 breast cancer ovarian cancer who had presented for abdominal pain at that time. Patient was noted to have sigmoid diverticulitis. Differential diagnosis: Reactive airway disease, pneumonia, pneumothorax, COPD, CHF, ACS, pulmonary embolism, musculoskeletal, GERD as well as other pathologies were considered. Diagnostics, as interpreted by me: ECG: Sinus with PACs, rate of 72 normal intervals normal axis motion artifact noted. Repeat EKG due to concern for artifact Normal sinus rhythm, rate of 60 normal intervals normal axis Q-wave in V2 with a single T wave version V2 but not V3. No obvious STEMI. Cardiac monitoring: An order was placed for continuous cardiac monitoring. The monitor shows a rate of 62 with sinus rhythm. Patient was placed on pulse oximetry Medical decision rules: None Imaging studies: I informally interpreted the patient's chest x-ray does not show obvious pneumonia or pneumothorax with formal report to follow. HPI: Patient presents due to concern for shortness of breath specifically with exertion. The patient states that this happened [place] 7 [place] 8[place] away and one of the days it was very hot and humid greater than 90 degrees the patient was having significant shortness of breath with activity. Patient states over last 2 weeks her symptoms have waxed and waned. No orthopnea. The patient thinks that maybe she has some very mild increase in leg swelling compared to prior. She does take gabapentin. No falls or trauma. Patient denies any chest pains. The patient states that she did have a significant coughing fit at the last evening but it is nonproductive. Patient denies any significant heart history. PAST MEDICAL HISTORY: See Below PAST SURGICAL HISTORY: See Below SOCIAL HISTORY: See Below HOME MEDICATIONS: See Below ALLERGIES: See Below VITALS: See Below PHYSICAL EXAMINATION: GENERAL: NAD, non-toxic. EYE EXAM: Normal conjunctiva. PERRL, no anisocoria and EOM's grossly intact w/o pain. OROPHARYNX: Moist mucus membranes, grossly normal dentition. NECK: Trachea midline, no stridor. LUNGS: Clear to auscultation. Normal chest wall mechanics. HEART: NSR, no MRG. ABDOMEN: Abdomen soft, non-tender, no masses, no rebound or guarding. BACK: No CVA TTP. SKIN: No rashes and no bruising. UPPER EXTREMITIES: Upper extremities are grossly normal. LOWER EXTREMITIES: Grossly normal, no edema. NEURO EXAM: Awake and alert, follows commands, no obvious facial asymmetry, normal speech, moves all 4 extremities. Past Med/Surg History Problem List (Updated 09/28/24 @ 22:36 by Ryan Fulton MD) WRIGHT (dyspnea on exertion) (Acute) Exertional shortness of breath Diverticulitis (Acute) Abdominal pain, acute (Acute) Acute diarrhea (Acute) Dizziness (Acute) Headache (Acute) Lab test negative for COVID-19 virus (Acute) Diverticulitis (Acute) DVT prophylaxis T2DM (type 2 diabetes mellitus) Acute diverticulitis LPRD (laryngopharyngeal reflux disease) Gastritis Constipation Diverticulosis RUQ abdominal pain Abnormal CT scan Encounter for pre-operative examination Gastroparesis (Chronic) Peripheral neuropathy Ambulatory dysfunction Osteoporosis (Acute 02/17/12) Malignant neoplasm of ovary (Acute 02/17/12) Aortic atherosclerosis (Acute 02/17/12) GERD (gastroesophageal reflux disease) Dysphagia History of basal cell carcinoma (Acute) back, face tx with artemio 2000 GERD (gastroesophageal reflux disease) (Acute) Medical History Degenerative disc disease History of left breast cancer 1991--sx/chemo/radiation History of ovarian cancer diagnosed 1991--pt states it was "a 00 rating"--found after hysterectomy Anxiety Actinic keratosis Dysplastic nevus Chemotherapy-induced neuropathy Prediabetes Pancreatitis Surgical History History of breast biopsy malignant History of dilatation and curettage History of thumb surgery right, tissue repair History of open reduction and internal fixation (ORIF) procedure left wrist--hardware removed History of open reduction and internal fixation (ORIF) procedure right tibia fx--hardware in place History of ERCP History of bilateral breast reduction surgery History of oral surgery gum sx History of root canal procedure History of wisdom tooth extraction History of tonsillectomy and adenoidectomy History of parathyroidectomy right side--benign tumor History of bilateral cataract extraction History of blepharoplasty bilt eyes, upper and lower History of hysterectomy d/t fibroids H/O oophorectomy History of colonoscopy History of appendectomy History of cholecystectomy Melanoma stage 1A, negative SLN right upper back 1999 stage 1A 0.2 mm superficial spreading ? location 2017 Dr. Toro Family History Mother Family history of diabetes mellitus Family hx colonic polyps Hearing loss Hypertension Stroke Heart disease Allergies Sister Family history of diabetes mellitus Family hx colonic polyps Hypertension Cancer Heart disease Allergies Brother Cancer Other No family history of adverse response to anesthesia No family history of bleeding disorder No significant family history Denies family history of Asthma Social History Smoking Status: Never smoker Tobacco Type: Cigarettes Second Hand Exposure: No; Do You Dip or Chew Tobacco: No; Hx Alcohol Use: No Hx Substance Use: No Preferred Language: Mongolian Communication Ability: Effective 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 Beliefs That Will Affect Care: None marital status: Current Living Situation: Spouse current occupational status: retired other: retired [employer] Tr[employer] Feels Safe at Home: Yes Assistive Devices: Cane and Walker Allergies Allergies Allergy/AdvReac Type Severity Reaction Status Date / Time Proton Pump Inhibitors Allergy Severe Chest Pain Verified 09/28/24 19:42 sulfamethoxazole Allergy Severe Anaphylaxis-edema Verified 09/28/24 19:42 [From Bactrim] face, lips & tongue trimethoprim [From Bactrim] Allergy Severe Anaphylaxis-edema Verified 09/28/24 19:42 face, lips & tongue celecoxib [From Celebrex] Allergy Unknown PER [facility] Verified 09/28/24 19:42 carbamazepine AdvReac Severe pancreatiti Verified 09/28/24 19:42 s tramadol AdvReac Severe SOB, CHEST Verified 09/28/24 19:42 PAIN alendronate sodium AdvReac Intermediate Chest Pain Verified 09/28/24 19:42 [From Fosamax] cimetidine AdvReac Intermediate HALLUCINATI Verified 09/28/24 19:42 ONS ciprofloxacin AdvReac Intermediate DOES NOT Verified 09/28/24 19:42 TOLERATE epinephrine AdvReac Intermediate Tachycardia Verified 09/28/24 19:42 levofloxacin [From Levaquin] AdvReac Intermediate Diarrhea Verified 09/28/24 19:42 lidocaine AdvReac Intermediate Tachycardia Verified 09/28/24 19:42 metronidazole [From Flagyl] AdvReac Intermediate Abdominal Verified 09/28/24 19:42 Pain prednisone AdvReac Intermediate "I heard Verified 09/28/24 19:42 voices and I felt crappy". propylene glycol AdvReac Intermediate BURNING Verified 09/28/24 19:42 SENSATION IN VAGINAL AREA sertraline AdvReac Intermediate PSYCH Verified 09/28/24 19:42 COMPLICATIONS simvastatin AdvReac Intermediate Chest Pain Verified 09/28/24 19:42 [id number]-[id number]-FuB Reductase AdvReac Intermediate MUSCLE Verified 09/28/24 19:42 Inhibitor WEAKNESS [Gauttxb-Vsl-Asm Reductase Inhibitor] ursodiol AdvReac Intermediate CAUSED Verified 09/28/24 19:42 HAIR LOSS valacyclovir [From Valtrex] AdvReac Intermediate RUQ ABD Verified 09/28/24 19:42 PAIN Ibandronic Acid AdvReac Intermediate GERD Uncoded 09/28/24 19:42 Home Meds Home Medications Medication Instructions Recorded Confirmed artificial 1 drp ophthalmic (eye) QID PRN Dry 04/12/21 09/28/24 tears(iianrmz-[id number]-bbimrmc) Eyes 0.1 %-0.3 %-0.2 % eye drops lidocaine HCl 2 % mucosal solution 5 ml PO QID PRN Acid Reflux 04/12/21 09/28/24 (Lidocaine Viscous) lorazepam 0.5 mg tablet 0.5 mg PO DAILY PRN Anxiety 04/12/21 09/28/24 melatonin 1 mg tablet 1 mg PO HS PRN Insomnia 04/12/21 09/28/24 chlorpheniramine maleate 4 mg 4 mg PO DIRECTED PRN NEEDED 10/16/21 09/28/24 tablet PER [facility] cholecalciferol (vitamin D3) 125 10,000 unit PO QAM 10/16/21 09/28/24 mcg (5,000 unit) tablet (Vitamin D3) sucralfate 1 gram tablet (Carafate) 1 g PO ACHS PRN ABD PAIN 10/16/21 09/28/24 triamcinolone acetonide 0.05 % 1 applic topical BID PRN Skin 10/16/21 09/28/24 topical ointment Irritation vitamin B complex 1 tab PO QAM 10/16/21 09/28/24 Saccharomyces boulardii 250 mg 250 mg PO QAM 10/17/21 09/28/24 capsule (Florastor) acetaminophen 500 mg tablet 1,000 mg PO BID PRN Pain 10/17/21 09/28/24 (Tylenol Extra Strength) acyclovir 5 % topical cream 1 applic topical BID PRN Skin 10/17/21 09/28/24 Irritation omeprazole 20 mg-sodium 1 cap PO QPM PRN 10/17/21 09/28/24 bicarbonate 1.1 gram capsule HEARTBURN/INDIGESTION (Zegerid OTC) Pancreatin Powder 1 g PO TIDM 02/10/23 09/28/24 alclometasone 0.05 % topical cream 1 applic topical BID PRN Skin 02/10/23 09/28/24 Irritation ciclopirox 8 % topical solution 1 applic topical HS PRN as needed 02/10/23 09/28/24 docusate sodium 100 mg capsule 100 mg PO BID PRN Constipation 02/10/23 09/28/24 goldenseal root 535 mg capsule 535 mg PO DAILY PRN as needed 02/10/23 09/28/24 ketoconazole 2 % topical cream 1 applic topical BID PRN RED SCALY 02/10/23 09/28/24 AREAS mupirocin calcium 2 % topical cream 1 applic topical BID PRN NEEDED 02/10/23 09/28/24 Oxbile Salt Tablets 1 - 4 tab PO TIDM 09/18/23 09/28/24 Saffron Tablet 50 mg PO DAILY 09/18/23 09/28/24 gabapentin 100 mg capsule 100 mg PO HS 09/18/23 09/28/24 metformin 500 mg tablet,extended 500 mg PO QAM 09/18/23 09/28/24 release 24 hr albuterol sulfate 90 mcg/actuation 2 puff inhalation QID PRN 10/26/23 09/28/24 aerosol inhaler Shortness Of Breath Or Wheezing psyllium 1 tsp PO TID 01/08/24 09/28/24 Pancreat-Bet UTs-oiz-fcls-pap 250 1 cap PO WM 09/28/24 09/28/24 mg-162 mg-65 mg-125 mg capsule (Super Enzyme) boron aspartate 3 mg (as 3 mg PO TID 09/28/24 09/28/24 aspartate) capsule calcium pantothenate 100 mg tablet 100 mg PO QAM PRN as needed 09/28/24 09/28/24 cranberry extract 250 mg capsule 250 mg PO DAILY 09/28/24 09/28/24 estradiol 0.01% (0.1 mg/gram) 0.5 g vaginal .EVERY OTHER NIGHT 09/28/24 09/28/24 vaginal cream flaxseed oil 1,000 mg capsule 1,000 mg PO QAM 09/28/24 09/28/24 geriatric multivitamin-min 1 tab PO QAM 09/28/24 09/28/24 magnesium 250 mg tablet 250 mg PO AMHS PRN as needed 09/28/24 09/28/24 olopatadine 0.2 % eye drops 1 drp OPB HS 09/28/24 09/28/24 peg 400-propylene glycol (PF) 0.4 1 drp OPB TID 09/28/24 09/28/24 %-0.3 % eye drops in a dropperette (Systane (PF)) phenazopyridine 200 mg tablet 200 mg PO TID PRN uti symptoms 09/28/24 09/28/24 polyethylene glycol 3350 17 8.5 g PO 2XWK PRN Constipation 09/28/24 09/28/24 gram/dose oral powder (Miralax) pyridoxine (vitamin B6) 100 mg 100 mg PO AMHS PRN when ill 09/28/24 09/28/24 tablet (Vitamin B-6) soybean, fermented 50 mg capsule 100 mg PO UD PRN as directed 09/28/24 09/28/24 (Nattokinase) vitamin A 5,000 unit/0.1 mL oral 5,000 unit PO QAM 09/28/24 09/28/24 drops vitamin C 500 mg-multivitamin with 12 tab PO QAM 09/28/24 09/28/24 minerals chewable tablet (Emergen-C) vitamin K2 (MK-4) 100 mcg tablet 200 mcg PO QAM 09/28/24 09/28/24 wheat dextrin 3 gram-calcium 15 g PO QAM 09/28/24 09/28/24 gluc,lactate 300 mg/8.8 gram oral powder Previous Rx's Medication Instructions Recorded ondansetron 4 mg disintegrating 4 mg PO Q8H PRN nausea and 02/10/23 tablet vomiting #30 tabs Results & Data (ED) Vital Signs Vital Signs - 24 hr 09/28/24 13:44 09/28/24 14:06 09/28/24 14:06 Temperature 36.5 C Temperature Source Temporal Artery Scan Pulse Rate 77 Pulse Rate [Right Finger] 71 Pulse Rhythm [Right Finger] Regular Pulse Strength [Right Finger] Normal Respiratory Rate 18 15 Respiratory Effort / Characteristics Non-Labored Respiratory Depth Normal Normal Respiratory Pattern Regular Blood Pressure 124/77 Blood Pressure [Right Arm] 130/75 Blood Pressure Mean 92 Blood Pressure Mean [Right Arm] 93 Blood Pressure Position [Right Arm] Lying Pulse Oximetry 95 95 95 Oxygen Delivery Method Room Air Room Air Room Air Sepsis Recent Fever Within 48 Hours No Sepsis New/Unexplained Change in Mental Status No Sepsis Action Taken by Nursing No Action Required 09/28/24 14:09 09/28/24 16:08 09/28/24 16:47 Temperature 36.6 C Temperature Source Oral Pulse Rate 70 Pulse Rate [Right Finger] 63 64 Pulse Rhythm [Right Finger] Regular Regular Pulse Strength [Right Finger] Normal Normal Respiratory Rate 16 18 Respiratory Effort / Characteristics Non-Labored Non-Labored Respiratory Depth Normal Normal Respiratory Pattern Regular Regular Blood Pressure Blood Pressure [Right Arm] 126/79 127/66 Blood Pressure Mean Blood Pressure Mean [Right Arm] 94 86 Blood Pressure Position [Right Arm] Lying Lying Pulse Oximetry 93 96 Oxygen Delivery Method Room Air Room Air Sepsis Recent Fever Within 48 Hours Sepsis New/Unexplained Change in Mental Status Sepsis Action Taken by Nursing 09/28/24 18:05 Temperature Temperature Source Pulse Rate Pulse Rate [Right Finger] 68 Pulse Rhythm [Right Finger] Regular Pulse Strength [Right Finger] Normal Respiratory Rate 15 Respiratory Effort / Characteristics Non-Labored Respiratory Depth Normal Respiratory Pattern Regular Blood Pressure Blood Pressure [Right Arm] 128/91 Blood Pressure Mean Blood Pressure Mean [Right Arm] 103 Blood Pressure Position [Right Arm] Lying Pulse Oximetry 96 Oxygen Delivery Method Room Air Sepsis Recent Fever Within 48 Hours Sepsis New/Unexplained Change in Mental Status Sepsis Action Taken by Prison Medications Current Medication List: was personally reviewed by me Laboratory Data Attestation: I reviewed the patient's lab results. 09/28/24 13:53 09/28/24 13:53 Lab Results 09/28/24 Range/Units 13:53 WBC 5.61 (4.8-10.8) K/ul RBC 3.89 L (4.20-5.40) M/uL Hgb 12.4 (12.0-16.0) g/dl Hct 36.3 L (37.0-47.0) % MCV 93.3 (80.0-100.0) fL MCH 31.9 (25.0-34.0) pg MCHC 34.2 (32.0-36.0) g/dL RDW Std Deviation 41.7 (36.4-46.3) fL RDW Coeff of Mack 12.2 (11.5-14.5) % Plt Count 296 (130-400) K/uL MPV 9.8 (9.4-12.4) fL Immature Gran % (Auto) 0.4 % Neut % (Auto) 48.3 % Lymph % (Auto) 35.5 % Bates % (Auto) 10.5 % Eos % (Auto) 4.1 % Baso % (Auto) 1.2 % Neut # (Auto) 2.71 (1.40-6.50) K/uL Lymph # (Auto) 1.99 (1.20-3.40) K/uL Bates # (Auto) 0.59 (0.11-0.59) K/uL Eos # (Auto) 0.23 (0.00-0.50) K/uL Baso # (Auto) 0.07 (0.00-0.20) K/uL Immature Gran # (Auto) 0.02 (0.01-0.20) K/uL PT 10.2 (9.0-12.0) Seconds INR 0.9 (0.9-1.1) APTT 25 (21-31) Seconds PTT Ratio 0.9 D-Dimer 600 H* (0-500) ug/L FEU Sodium 138 (136-145) mmol/L Potassium 4.3 (3.5-5.1) mmol/L Chloride 106 (98-107) mmol/L Carbon Dioxide 25 (21-32) mmol/L Anion Gap 7 (3-11) BUN 21 (6-23) mg/dl Creatinine 0.72 (0.6-1.2) mg/dl Est Cr Clr Drug Dosing 74.8 ml/min eGFR 82.91 BUN/Creatinine Ratio 29.2 H (10-20) Glucose 127 H (70-99(Fasting)) mg/dl Calcium 9.6 (8.6-10.3) mg/dl Total Bilirubin 0.3 (0.2-1.0) mg/dl AST 21 (13-39) U/L ALT 23 (7-52) U/L Alkaline Phosphatase 53 (34-104) U/L Troponin I High Sens 6.9 (0-14) pg/ml B-Natriuretic Peptide 40 (0-100) pg/ml Total Protein 7.6 (6.0-8.3) gm/dl Albumin 4.4 (3.4-5.0) gm/dl Globulin 3.2 (2.5-4.0) gm/dl Albumin/Globulin Ratio 1.4 (0.9-2) Lyme Disease Screen Negative (Negative) Administered Medications Enoxaparin Sodium (Enoxaparin Inj 40 Mg/0.4 Ml Syr) 40 mg SQ QAM [place] Stop: 10/28/24 18:14 Last Admin: 09/28/24 18:37 Dose: 40 mg Documented By: SHB Discontinued Medications Albuterol (Albut/Ipratrop 3mg/0.5mg Neb 3 Ml Vial) 3 ml NEB NOW STA; Protocol Stop: 09/28/24 17:38 Last Admin: 09/28/24 18:38 Dose: 3 ml Documented By: SHB Famotidine (Famotidine 20 Mg Tab) 20 mg PO 1944 ONE Stop: 09/28/24 19:46 Last Admin: 09/28/24 21:56 Dose: 20 mg Documented By: SHERRY Furosemide (Furosemide 40 Mg/4 Ml Vial) 40 mg IV ONE ONE Stop: 09/28/24 18:47 Last Admin: 09/28/24 19:48 Dose: 40 mg Documented By: PAG Ioversol (Optiray 320 125ml) 115 ml IV ONCE ONE Stop: 09/28/24 15:50 Last Admin: 09/28/24 15:50 Dose: 115 ml Documented By: ABS Methylprednisolone (Methylprednisolone 125 Mg/2 Ml Vial) 125 mg IV NOW STA Stop: 09/28/24 17:38 Last Admin: 09/28/24 18:35 Dose: 125 mg Documented By: RAND Imaging Data Radiologist's Impression: Chest X-Ray 09/28/24 13:47 XR chest 1V portable CLINICAL HISTORY: Chest pain, nonspecific COMPARISON STUDY: 08/06/2024 FINDINGS: Heart size and pulmonary vasculature are normal. No consolidation or pleural effusion. No pneumothorax. Stable left axillary surgical clips. IMPRESSION: No acute findings. ACT 112: Negative or not required by law. Electronically signed by: Chuy Dacosta M.D. 09/28/2024 2:35 PM Chest CTA 09/28/24 15:38 EXAMINATION: CT angio chest PE protocol CLINICAL HISTORY: Dyspnea on exertion, rule out PE, positive D-dimer PRIORS: 08/06/2024 TECHNIQUE: Contiguous axial images were obtained through the chest with the use of intravenous contrast. Sagittal and coronal reformations are supplied. FINDINGS: The pulmonary arteries are well opacified no central or peripheral pulmonary embolism. No central or peripheral pulmonary embolism. Chest is well-expanded with mild hypoventilatory changes at the lung bases. Mild bilateral groundglass attenuation present throughout the lungs. No airspace consolidation or dominant mass. Heart size is moderately enlarged with dilatation of all 4 chambers, allowing for nongated technique. The main pulmonary trunk measures approximately 2.9 cm. No pleural or pericardial effusion. No adenopathy in the chest. Thyroid is mildly heterogeneous. Surgical clips in the left breast and axilla. Moderate atherosclerotic disease is present. Limited visualization of the upper abdomen shows possible hepatomegaly. Gallbladder surgically absent. No ascites. In bone windows, moderate kyphosis and osseous demineralization noted. No rib fracture or pneumothorax. PRESSION: 1. No central or peripheral pulmonary embolism. 2. Diffuse bilateral ground glass attenuation of the lungs compatible with alveolitis. No pneumonia or dominant mass. 3. Moderate enlargement of the heart and all 4 chambers, allowing for nongated technique. ACT 112: Positive. There are findings on this examination that require communication between the performing entity and the patient following Patient Test Result Information Act ([place] ACT 112) guidelines. Electronically signed by Heather Vance 09-28-2024 4:32 PM Discharge Plan Visit Data Chief Complaint: Shortness of Breath/Dyspnea Stated Complaint: TROUBLE BREATHING AND WALKING, DIZZINESS ED Provider: Ryan Fulton Discharge Problem: WRIGHT (dyspnea on exertion) Patient Disposition: Admitted As Inpatient Condition: Good Discharge Instructions Interventions: ED Discharge Assessment Last Done: 09/28/24 20:22
[2024-09-28] MEDS: OPTIRAY 320 125ml IV ONE (15:50)
--- NOTE | 2024-09-28 16:32 | CT Scan Report ---
EXAMINATION: CT angio chest PE protocol CLINICAL HISTORY: Dyspnea on exertion, rule out PE, positive D-dimer PRIORS: 08/06/2024 TECHNIQUE: Contiguous axial images were obtained through the chest with the use of intravenous contrast. Sagittal and coronal reformations are supplied. FINDINGS: The pulmonary arteries are well opacified no central or peripheral pulmonary embolism. No central or peripheral pulmonary embolism. Chest is well-expanded with mild hypoventilatory changes at the lung bases. Mild bilateral groundglass attenuation present throughout the lungs. No airspace consolidation or dominant mass. Heart size is moderately enlarged with dilatation of all 4 chambers, allowing for nongated technique. The main pulmonary trunk measures approximately 2.9 cm. No pleural or pericardial effusion. No adenopathy in the chest. Thyroid is mildly heterogeneous. Surgical clips in the left breast and axilla. Moderate atherosclerotic disease is present. Limited visualization of the upper abdomen shows possible hepatomegaly. Gallbladder surgically absent. No ascites. In bone windows, moderate kyphosis and osseous demineralization noted. No rib fracture or pneumothorax. PRESSION: 1. No central or peripheral pulmonary embolism. 2. Diffuse bilateral ground glass attenuation of the lungs compatible with alveolitis. No pneumonia or dominant mass. 3. Moderate enlargement of the heart and all 4 chambers, allowing for nongated technique. ACT 112: Positive. There are findings on this examination that require communication between the performing entity and the patient following Patient Test Result Information Act ([place] ACT 112) guidelines. Electronically signed by Heather Vance 09-28-2024 4:32 PM
--- NOTE | 2024-09-28 18:30 | History & Physical Report ---
Date of Service September 28, 2024 Assessment & Plan (1) Exertional shortness of breath: Plan: Remote history of possible asthma/hyperreactive airway disease and has been on as needed albuterol Exertional shortness of breath for the last 2 weeks. Noted to be hypoxic with ambulation Associated with chest heaviness but no definitive chest pain CTA negative for any pulmonary embolism but it did show bilateral groundglass attenuation compatible with cellulitis Awaiting bio fire and will get Lyme titer Received 125 of Solu-Medrol and nebulized bronchodilator and will continue Solu- Medrol and nebulized bronchodilator as needed She will need to have a pulmonary evaluation in the outpatient and also to establish O2 saturation test prior to discharge Chest heaviness with exertion No significant history of PND but does have minimal leg swelling Will get serial troponins and an echo to evaluate cardiac function Will give a small dose of intravenous Lasix and monitor BMP Excessive multivitamins Use She has been taking too many vitamins and too much daily for many years Was advised to only take 1 or 2 multivitamin a day (2) T2DM (type 2 diabetes mellitus): Plan: Has been on metformin as an outpatient Will put her on sliding scale insulin coverage and check hemoglobin A1c (3) Peripheral neuropathy: Plan: Has been taking gabapentin and planning to stop the medication (4) GERD (gastroesophageal reflux disease): Plan: Will put her on Protonix (5) Malignant neoplasm of ovary: Plan: History of ovarian and breast cancer Status post chemoradiation therapy 2 years ago (6) Malignant neoplasm of upper-outer quadrant of female breast: Plan DVT prophylaxis Subcu Lovenox CODE STATUS Full History of Present Illness Chief Complaint: Exertional chest heaviness with shortness of breath for the last 2 weeks Primary Care Provider: Jacky Petty She is an 84-year-old female with significant past medical history of type 2 diabetes on metformin, hyperlipidemia, diabetic polyneuropathy, hiatal hernia, and also history of breast and ovarian cancer status post chemoradiation 32 years ago apparently has been complaining of shortness of breath with exertion associated with chest tightness for the last 2 weeks. She has occasional dizziness associated with it but the dizziness has been going on for a long time. She has bouts of cough last night but no other history of ongoing cough, chest pain or palpitation. Denies any fever and/or chills but she has been feeling extremely tired. She also complained to have some leg swelling but denies any symptoms of orthopnea. She has been taking a lot of different kinds of vitamins and she admits to have asthmatic symptoms long time ago but does not take inhalers regularly. Given the history of ongoing shortness of breath the last 2 weeks and evidence of alveolitis on CT findings and hypoxemia with ambulation she will be admitted to medical telemetry unit for continuation of care. Allergies Allergy/AdvReac Type Severity Reaction Status Date / Time Proton Pump Inhibitors Allergy Severe Chest Pain Verified 01/08/24 01:18 sulfamethoxazole Allergy Severe Anaphylaxis-edema Verified 01/08/24 01:18 [From Bactrim] face, lips & tongue trimethoprim [From Bactrim] Allergy Severe Anaphylaxis-edema Verified 01/08/24 01:18 face, lips & tongue celecoxib [From Celebrex] Allergy Unknown PER [facility] Verified 01/08/24 01:18 carbamazepine AdvReac Severe pancreatiti Verified 01/08/24 01:18 s tramadol AdvReac Severe SOB, CHEST Verified 01/08/24 01:18 PAIN alendronate sodium AdvReac Intermediate Chest Pain Verified 01/08/24 01:18 [From Fosamax] cimetidine AdvReac Intermediate HALLUCINATI Verified 01/08/24 01:18 ONS ciprofloxacin AdvReac Intermediate DOES NOT Verified 01/08/24 01:18 TOLERATE epinephrine AdvReac Intermediate Tachycardia Verified 01/08/24 01:18 levofloxacin [From Levaquin] AdvReac Intermediate Diarrhea Verified 01/08/24 01:18 lidocaine AdvReac Intermediate Tachycardia Verified 01/08/24 01:18 metronidazole [From Flagyl] AdvReac Intermediate Abdominal Verified 01/08/24 01:18 Pain prednisone AdvReac Intermediate "I heard Verified 01/08/24 01:18 voices and I felt crappy". propylene glycol AdvReac Intermediate BURNING Verified 01/08/24 01:18 SENSATION IN VAGINAL AREA sertraline AdvReac Intermediate PSYCH Verified 01/08/24 01:18 COMPLICATIONS simvastatin AdvReac Intermediate Chest Pain Verified 01/08/24 01:18 Srsgevd-WFH-UtH Reductase AdvReac Intermediate MUSCLE Verified 01/08/24 01:18 Inhibitor WEAKNESS [Vlfjebi-Xhl-Wjb Reductase Inhibitor] ursodiol AdvReac Intermediate CAUSED Verified 01/08/24 01:18 HAIR LOSS valacyclovir [From Valtrex] AdvReac Intermediate RUQ ABD Verified 01/08/24 01:18 PAIN Ibandronic Acid AdvReac Intermediate GERD Uncoded 01/08/24 01:18 Home Medications Medication Instructions Recorded Confirmed Type cyanocobalamin (vitamin B-12) 2,500 mcg sublingual DAILY 01/30/19 01/08/24 History 2,500 mcg sublingual tablet (Vitamin B-12) artificial 1 drp ophthalmic (eye) QID PRN Dry 04/12/21 09/28/24 History tears(jxqopex-hatemihv-rbnoklg) Eyes 0.1 %-0.3 %-0.2 % eye drops lidocaine HCl 2 % mucosal solution 5 ml PO QID PRN Acid Reflux 04/12/21 09/28/24 History (Lidocaine Viscous) lorazepam 0.5 mg tablet 0.5 mg PO DAILY PRN Anxiety 04/12/21 09/28/24 History melatonin 1 mg tablet 1 mg PO HS PRN Insomnia 04/12/21 09/28/24 History chlorpheniramine maleate 4 mg 4 mg PO DIRECTED PRN NEEDED 10/16/21 09/28/24 History tablet PER [facility] cholecalciferol (vitamin D3) 125 10,000 unit PO QAM 10/16/21 09/28/24 History mcg (5,000 unit) tablet (Vitamin D3) geriatric bfpxhngp-kwsn-cegu 1 tab PO DAILY 10/16/21 09/28/24 History sucralfate 1 gram tablet (Carafate) 1 g PO ACHS PRN ABD PAIN 10/16/21 09/28/24 History triamcinolone acetonide 0.05 % 1 applic topical BID PRN Skin 10/16/21 09/28/24 History topical ointment Irritation vitamin B complex 1 tab PO QAM 10/16/21 09/28/24 History Saccharomyces boulardii 250 mg 250 mg PO QAM 10/17/21 09/28/24 History capsule (Florastor) acetaminophen 500 mg tablet 1,000 mg PO BID PRN Pain 10/17/21 09/28/24 History (Tylenol Extra Strength) acyclovir 5 % topical cream 1 applic topical BID PRN Skin 10/17/21 09/28/24 History Irritation omeprazole 20 mg-sodium 1 cap PO QPM PRN 10/17/21 09/28/24 History bicarbonate 1.1 gram capsule HEARTBURN/INDIGESTION (Zegerid OTC) omega 6-xeq-tkt-fish oil 1,000 mg 1 cap PO QAM 04/06/22 01/08/24 History (120 mg-180 mg) capsule (Fish Oil) Pancreatin Powder 1 g PO TIDM 02/10/23 09/28/24 History alclometasone 0.05 % topical cream 1 applic topical BID PRN Skin 02/10/23 09/28/24 History Irritation ciclopirox 8 % topical solution 1 applic topical HS 02/10/23 01/08/24 History docusate sodium 100 mg capsule 100 mg PO BID PRN Constipation 02/10/23 09/28/24 History goldenseal root 535 mg capsule 535 mg PO DAILY 02/10/23 01/08/24 History ketoconazole 2 % topical cream 1 applic topical BID PRN RED SCALY 02/10/23 09/28/24 History AREAS mupirocin calcium 2 % topical cream 1 applic topical BID PRN NEEDED 02/10/23 09/28/24 History ondansetron 4 mg disintegrating 4 mg PO Q8H PRN nausea and 02/10/23 09/28/24 Rx tablet vomiting #30 tabs vitamin K2 100 mcg capsule 200 mcg PO DAILY 02/10/23 01/08/24 History Oxbile Salt Tablets 1 - 4 tab PO TIDM 09/18/23 01/08/24 History Saffron Tablet 50 mg PO DAILY 09/18/23 01/08/24 History gabapentin 100 mg capsule 100 mg PO HS 09/18/23 09/28/24 History metformin 500 mg tablet,extended 500 mg PO QAM 09/18/23 09/28/24 History release 24 hr albuterol sulfate 90 mcg/actuation 2 puff inhalation QID PRN 10/26/23 09/28/24 History aerosol inhaler Shortness Of Breath Or Wheezing psyllium 1 tsp PO TID 01/08/24 01/08/24 History boron aspartate 3 mg (as 3 mg PO TID 09/28/24 09/28/24 History aspartate) capsule estradiol 0.01% (0.1 mg/gram) 0.5 g vaginal .EVERY OTHER NIGHT 09/28/24 09/28/24 History vaginal cream flaxseed oil 1,000 mg capsule 1,000 mg PO QAM 09/28/24 09/28/24 History magnesium 250 mg tablet 250 mg PO AMHS PRN as needed 09/28/24 09/28/24 History phenazopyridine 200 mg tablet 200 mg PO TID PRN uti symptoms 09/28/24 09/28/24 History polyethylene glycol 3350 17 8.5 g PO 2XWK PRN Constipation 09/28/24 09/28/24 History gram/dose oral powder (Miralax) pyridoxine (vitamin B6) 100 mg 100 mg PO AMHS PRN when ill 09/28/24 09/28/24 History tablet (Vitamin B-6) vitamin A 5,000 unit/0.1 mL oral 5,000 unit PO QAM 09/28/24 09/28/24 History drops vitamin C 500 mg-multivitamin with 12 tab PO QAM 09/28/24 09/28/24 History minerals chewable tablet (Emergen-C) wheat dextrin 3 gram-calcium 15 g PO QAM 09/28/24 09/28/24 History gluc,lactate 300 mg/8.8 gram oral powder Past Med/Surg History Problem List (Updated 09/28/24 @ 18:33 by Joceline Pederson MD) Exertional shortness of breath Diverticulitis (Acute) Abdominal pain, acute (Acute) Acute diarrhea (Acute) Dizziness (Acute) Headache (Acute) Lab test negative for COVID-19 virus (Acute) Diverticulitis (Acute) DVT prophylaxis T2DM (type 2 diabetes mellitus) Acute diverticulitis LPRD (laryngopharyngeal reflux disease) Gastritis Constipation Diverticulosis RUQ abdominal pain Abnormal CT scan Encounter for pre-operative examination Gastroparesis (Chronic) Peripheral neuropathy Ambulatory dysfunction Osteoporosis (Acute 02/17/12) Malignant neoplasm of ovary (Acute 02/17/12) Aortic atherosclerosis (Acute 02/17/12) GERD (gastroesophageal reflux disease) Dysphagia History of basal cell carcinoma (Acute) back, face tx with ulloa 2000 GERD (gastroesophageal reflux disease) (Acute) Medical History Degenerative disc disease History of left breast cancer 1991--sx/chemo/radiation History of ovarian cancer diagnosed 1991--pt states it was "a 00 rating"--found after hysterectomy Anxiety Actinic keratosis Dysplastic nevus Chemotherapy-induced neuropathy Prediabetes Pancreatitis Surgical History History of breast biopsy malignant History of dilatation and curettage History of thumb surgery right, tissue repair History of open reduction and internal fixation (ORIF) procedure left wrist--hardware removed History of open reduction and internal fixation (ORIF) procedure right tibia fx--hardware in place History of ERCP History of bilateral breast reduction surgery History of oral surgery gum sx History of root canal procedure History of wisdom tooth extraction History of tonsillectomy and adenoidectomy History of parathyroidectomy right side--benign tumor History of bilateral cataract extraction History of blepharoplasty bilt eyes, upper and lower History of hysterectomy d/t fibroids H/O oophorectomy History of colonoscopy History of appendectomy History of cholecystectomy Melanoma stage 1A, negative SLN right upper back 1999 stage 1A 0.2 mm superficial spreading ? location 2017 Dr. Toro Family History Mother Family history of diabetes mellitus Family hx colonic polyps Hearing loss Hypertension Stroke Heart disease Allergies Sister Family history of diabetes mellitus Family hx colonic polyps Hypertension Cancer Heart disease Allergies Brother Cancer Other No family history of adverse response to anesthesia No family history of bleeding disorder No significant family history Denies family history of Asthma Social History Smoking Status: Never smoker Tobacco Type: Cigarettes Second Hand Exposure: No; Do You Dip or Chew Tobacco: No; Hx Alcohol Use: No Hx Substance Use: No Preferred Language: [place] Communication Ability: Effective [employer] Architect Required: No Beliefs That Will Affect Care: None marital status: Current Living Situation: Spouse 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 Feels Safe at Home: Yes Assistive Devices: Cane and Walker Review of Systems Review of Systems: All systems reviewed and are unremarkable except as noted below Physical Exam Physical Exam: Lying in bed without any acute distress Constitutional: well developed, well nourished, + ill appearing and average body habitus Eyes: PERRL, conjunctivae normal, anicteric sclerae ENMT: external ear and nose normal, oropharynx normal Neck: trachea midline, no thyromegaly Respiratory: no respiratory distress Auscultation: + diminished lung sounds and + crackles (Occasional crackles bibasilarly); no wheezes Cardiovascular: Rate/Rhythm: regular rate and regular rhythm; not tachycardic Heart Sounds: normal S1 and normal S2; no murmur Extremities: + edema (Trace edema bilaterally) Gastrointestinal (Abdomen): Inspection/Auscultation: normal bowel sounds; a bdomen not distended Percussion/Palpation: abdomen soft; abdomen nontender Musculoskeletal: No acute arthritis involving any of the joint Neurologic: normal touch/pain/proprioception and moves all extremities; no focal motor deficits Psychiatric: A+Ox3, euthymic affect Lymphatic: no cervical or axillary lymphadenopathy Results & Data Results & Data Vital Signs (Past 12 Hours) Vital Signs Temp Pulse Pulse Resp BP BP Pulse Ox 09/28/24 18:05 68 15 128/91 96 09/28/24 16:47 36.6 C 64 18 127/66 96 09/28/24 16:08 63 16 126/79 93 09/28/24 14:09 70 09/28/24 14:06 95 09/28/24 14:06 71 15 130/75 95 09/28/24 13:44 36.5 C 77 18 124/77 95 O2 Del Method 09/28/24 18:05 Room Air 09/28/24 16:47 Room Air 09/28/24 16:08 Room Air 09/28/24 14:09 09/28/24 14:06 Room Air 09/28/24 14:06 Room Air 09/28/24 13:44 Room Air Laboratory Results Short CBC 09/28/24 Range/Units 13:53 WBC 5.61 (4.8-10.8) K/ul Hgb 12.4 (12.0-16.0) g/dl Hct 36.3 L (37.0-47.0) % Plt Count 296 (130-400) K/uL BMP 09/28/24 13:53 Sodium 138 Potassium 4.3 Chloride 106 Carbon Dioxide 25 BUN 21 Creatinine 0.72 Glucose 127 H Calcium 9.6 Liver Function 09/28/24 Range/Units 13:53 Total Bilirubin 0.3 (0.2-1.0) mg/dl AST 21 (13-39) U/L ALT 23 (7-52) U/L Alkaline Phosphatase 53 (34-104) U/L Albumin 4.4 (3.4-5.0) gm/dl I Medications Administered Current Inpatient Medications Enoxaparin Sodium (Enoxaparin Inj 40 Mg/0.4 Ml Syr) 40 mg SQ QAM [facility] Stop: 10/28/24 18:14 Code Status & VTE Plan VTE Prophylaxis Plan VTE Prophylaxis will be ordered: Yes
[2024-09-28] MEDS: ENOXAPARIN INJ 40 MG/0.4 ML SYR SQ SCH (18:37)
[2024-09-28] MEDS: ALBUT/IPRATROP 3MG/0.5MG NEB 3 ML VIAL NEB STA (18:38)
[2024-09-28 19:44] LABS: Chlamydia pneumoniae PCR Not Detected (NotDetected); Coronavirus 229E PCR Not Detected (NotDetected); Coronavirus CoV-2 (COVID19)PCR Not Detected (NotDetected); Coronavirus HKU1 PCR Not Detected (NotDetected); Coronavirus NL63 PCR Not Detected (NotDetected); Coronavirus OC43PCR Not Detected (NotDetected); Human Metapneumovirus PCR Not Detected (NotDetected); Parainfluenza Virus 1 PCR Not Detected (NotDetected); Parainfluenza Virus 2 PCR Not Detected (NotDetected); Parainfluenza Virus 3 PCR Not Detected (NotDetected); Parainfluenza Virus 4 PCR Not Detected (NotDetected); Respiratory Syncytial VirusPCR Not Detected (NotDetected); Rhinovirus/Enterovirus PCR Not Detected (NotDetected)
[2024-09-28] MEDS: FUROSEMIDE 40 MG/4 ML VIAL IV ONE (19:48)
[2024-09-28] MEDS ORDERED: ALBUTEROL HFA 8 GM INHALER INH PRN (20:46)
[2024-09-28] MEDS ORDERED: ARTIFICIAL TEARS OP PRN (21:08)
[2024-09-28] MEDS ORDERED: TRIAMCINOLONE ACET 0.025% CR 15 GM TUBE TOP PRN (21:11)
[2024-09-28] MEDS: FAMOTIDINE 20 MG TAB PO ONE (21:56)
[2024-09-29] MEDS: ALUMINUM/MAGNESIUM/SIMETH (MAALOX MAX) 30 ML UDC PO STA (00:03)
[2024-09-29] MEDS: ALBUT/IPRATROP 3MG/0.5MG NEB 3 ML VIAL NEB PRN (01:25)
[2024-09-29] MEDS: LORazepam 0.5 MG TAB PO STA ×2 (01:44→23:04)
[2024-09-29] MEDS: ACETAMINOPHEN 500 MG TAB PO PRN (01:44)
[2024-09-29 07:05] LABS: Thyroid Stimulating Hormone 0.652 uIu/ml (0.300-4.500)
[2024-09-29 07:40] LABS: Hematocrit (blood only) 36.0 % (37.0-47.0); Hemoglobin 12.7 g/dl (12.0-16.0); Mean Corpuscular Hemoglobin 32.6 pg (25.0-34.0); Mean Corpuscular Volume 92.3 fL (80.0-100.0); Platelet Count 309 K/uL (130-400); RDW Standard Deviation 40.3 fL (36.4-46.3); Red Blood Count 3.90 M/uL (4.20-5.40); White Blood Count 8.28 K/ul (4.8-10.8)
[2024-09-29 07:49] LABS: Anion Gap 13.0 (3-11); Blood Urea Nitrogen 26.0 mg/dl (6-23); Calcium 9.7 mg/dl (8.6-10.3); Carbon Dioxide 22.0 mmol/L (21-32); Chloride 102.0 mmol/L (98-107); Creatinine Clr Calc Pharmacy 59.8 ml/min; Glucose 195.0 mg/dl (70-99(Fasting)); Potassium 4.3 mmol/L (3.5-5.1); Sodium 137.0 mmol/L (136-145)
[2024-09-29] MEDS: ASCORBIC ACID 500 MG TAB PO SCH (08:06)
[2024-09-29] MEDS: FAMOTIDINE 20 MG TAB PO SCH (08:07)
[2024-09-29] MEDS: guaiFENesin 600 MG TABCR PO SCH (09:16)
--- NOTE | 2024-09-29 10:36 | Hospitalist Progress Note ---
Date of Service September 29, 2024 Assessment & Plan (1) Exertional shortness of breath: Plan: 84-year-old female with significant past medical history of type 2 diabetes on metformin, hyperlipidemia, diabetic polyneuropathy, hiatal hernia, and also history of breast and ovarian cancer status post chemoradiation 32 years ago apparently has been complaining of shortness of breath with exertion associated with chest tightness for the last 2 weeks Remote history of possible asthma/hyperreactive airway disease and has been on as needed albuterol Exertional shortness of breath for the last 2 weeks. Noted to be hypoxic with ambulation Associated with chest heaviness but no definitive chest pain CTA negative for any pulmonary embolism but it did show bilateral groundglass attenuation compatible with alveolitis Biofire is negative Will continue steroid, nebs Chest heaviness with exertion No significant history of PND but reported to have minimal leg swelling on admission Got IV lasix on admission Serial trop is normal and EKG is unchanged from prior Will follow up TTE Excessive multivitamins Use She has been taking too many vitamins and too much daily for many years Was advised to only take 1 or 2 multivitamin a day (2) T2DM (type 2 diabetes mellitus): Plan: Has been on metformin as an outpatient Continue ISS Check HbA1c (3) Peripheral neuropathy: Plan: Has been taking gabapentin (4) GERD (gastroesophageal reflux disease): Plan: Continue pepcid (5) Malignant neoplasm of ovary: Plan: History of ovarian and breast cancer Status post chemoradiation therapy 2 years ago (6) Malignant neoplasm of upper-outer quadrant of female breast: Plan DVT prophylaxis Subcu Lovenox CODE STATUS Full I spent a total of 55 minutes coordinating, documenting and providing care for this patient excluding time spent in performance of separately billed services Admission and Anticipated Discharge Date Admission Date: September 28, 2024 Subjective Patient seen and examined Reports dry cough, exertional dyspnea Denied sore throat, congestion, wheezing No chest pain today Denied all other complaints on ROS Physical Exam Constitutional: + well hydrated; no acute distress Eyes: PERRL, conjunctivae normal, anicteric sclerae ENMT: external ear and nose normal, oropharynx normal Respiratory: normal respiratory effort; no respiratory distress Diminished breath sounds. No crackles or wheeze Cardiovascular: Rate/Rhythm: regular rate and regular rhythm Gastrointestinal (Abdomen): normal bowel sounds, soft, nontender, no hepato splenomegaly Musculoskeletal: No pedal edema Neurologic: PERRL, EOMI, accommodation nl, no face palsy, no dysarthria Psychiatric: A+Ox3, euthymic affect Results & Data Results & Data Vital Signs (Past 12 Hours) Vital Signs Temp Pulse Pulse Resp BP Pulse Ox O2 Del Method 09/29/24 08:34 36.6 C 69 18 132/79 96 Room Air 09/29/24 06:59 65 09/29/24 02:26 36.7 C 76 18 119/71 93 Room Air 09/29/24 01:23 77 19 94 Room Air 09/28/24 23:23 36.9 C 78 18 139/78 93 Room Air Laboratory Results Abnormal lab results 09/28/24 09/29/24 09/29/24 Range/Units 13:53 06:06 07:21 RBC 3.89 L 3.90 L (4.20-5.40) M/uL Hct 36.3 L 36.0 L (37.0-47.0) % D-Dimer 600 H* (0-500) ug/L FEU Anion Gap 13 H (3-11) BUN 26 H (6-23) mg/dl BUN/Creatinine Ratio 29.2 H 28.9 H (10-20) Glucose 127 H 195 H (70-99(Fasting)) mg/dl
[2024-09-29 14:08] LABS: Hemoglobin A1C 6.6 % (4.5-5.6)
[2024-09-29] MEDS: BENZONATATE 100 MG CAPSULE PO PRN (17:10)
[2024-09-29] MEDS: COUGH DROP (SUGAR FREE) LOZ 24 LOZ/1 BOX BUCCAL PRN (21:27)
[2024-09-29] MEDS: MAGNESIUM HYDROXIDE SUSP 30 ML UDC PO PRN (21:27)
[2024-09-29 23:23] VITALS: O2SAT 96
[2024-09-29] MEDS ORDERED: CHLORASEPTIC (PHENOL) 1.4% SOLN 180 ML BTL MT PRN (23:43)
[2024-09-30 06:41] LABS: Hematocrit (blood only) 35.1 % (37.0-47.0); Hemoglobin 12.0 g/dl (12.0-16.0); Mean Corpuscular Hemoglobin 31.9 pg (25.0-34.0); Mean Corpuscular Volume 93.4 fL (80.0-100.0); Platelet Count 295 K/uL (130-400); RDW Standard Deviation 41.5 fL (36.4-46.3); Red Blood Count 3.76 M/uL (4.20-5.40); White Blood Count 15.11 K/ul (4.8-10.8)
[2024-09-30 06:55] LABS: Anion Gap 7.0 (3-11); Blood Urea Nitrogen 29.0 mg/dl (6-23); Calcium 9.1 mg/dl (8.6-10.3); Carbon Dioxide 28.0 mmol/L (21-32); Chloride 104.0 mmol/L (98-107); Creatinine Clr Calc Pharmacy 68.1 ml/min; Glucose 137.0 mg/dl (70-99(Fasting)); Magnesium 2.3 mg/dl (1.7-2.4); Potassium 4.1 mmol/L (3.5-5.1); Sodium 139.0 mmol/L (136-145)
[2024-09-30 07:59] VITALS: BP 114/70; RESP 18; TEMP 97.3
--- NOTE | 2024-09-30 09:34 | Discharge Summary ---
Date of Service September 30, 2024 Admission HPI Per Admitting Provider She is an 84-year-old female with significant past medical history of type 2 diabetes on metformin, hyperlipidemia, diabetic polyneuropathy, hiatal hernia, and also history of breast and ovarian cancer status post chemoradiation 32 years ago apparently has been complaining of shortness of breath with exertion associated with chest tightness for the last 2 weeks. She has occasional dizziness associated with it but the dizziness has been going on for a long time. She has bouts of cough last night but no other history of ongoing cough, chest pain or palpitation. Denies any fever and/or chills but she has been feel ing extremely tired. She also complained to have some leg swelling but denies any symptoms of orthopnea. She has been taking a lot of different kinds of vitamins and she admits to have asthmatic symptoms long time ago but does not take inhalers regularly. Given the history of ongoing shortness of breath the last 2 weeks and evidence of alveolitis on CT findings and hypoxemia with ambulation she will be admitted to medical telemetry unit for continuation of care. Admission Exam Per Admitting Provider Physical Exam: Lying in bed without any acute distress Constitutional: well developed, well nourished, + ill appearing and average body habitus Eyes: PERRL, conjunctivae normal, anicteric sclerae ENMT: external ear and nose normal, oropharynx normal Neck: trachea midline, no thyromegaly Respiratory: no respiratory distress Auscultation: + diminished lung sounds and + crackles (Occasional crackles bibasilarly); no wheezes Cardiovascular: Rate/Rhythm: regular rate and regular rhythm; not tachycardic Heart Sounds: normal S1 and normal S2; no murmur Extremities: + edema (Trace edema bilaterally) Gastrointestinal (Abdomen): Inspection/Auscultation: normal bowel sounds; abdomen not distended Percussion/Palpation: abdomen soft; abdomen nontender Musculoskeletal: No acute arthritis involving any of the joint Neurologic: normal touch/pain/proprioception and moves all extremities; no focal motor deficits Psychiatric: A+Ox3, euthymic affect Lymphatic: no cervical or axillary lymphadenopathy Principal Diagnosis Possible asthma exacerbation Alveolitis Discharge Exam Constitutional + well hydrated; no acute distress Eyes PERRL, conjunctivae normal, anicteric sclerae ENMT external ear and nose normal, oropharynx normal Respiratory normal respiratory effort; no respiratory distress Auscultation: lungs clear to auscultation bilaterally Cardiovascular Rate/Rhythm: regular rate and regular rhythm Gastrointestinal (Abdomen) normal bowel sounds, soft, nontender, no hepatosplenomegaly Neurologic PERRL, EOMI, accommodation nl, no face palsy, no dysarthria Psychiatric A+Ox3, euthymic affect Discharge Data Allergies Allergy/AdvReac Type Severity Reaction Status Date / Time Proton Pump Inhibitors Allergy Severe Chest Pain Verified 09/28/24 19:42 sulfamethoxazole Allergy Severe Anaphylaxis-edema Verified 09/28/24 19:42 [From Bactrim] face, lips & tongue trimethoprim [From Bactrim] Allergy Severe Anaphylaxis-edema Verified 09/28/24 19:42 face, lips & tongue celecoxib [From Celebrex] Allergy Unknown PER [facility] Verified 09/28/24 19:42 carbamazepine AdvReac Severe pancreatiti Verified 09/28/24 19:42 s tramadol AdvReac Severe SOB, CHEST Verified 09/28/24 19:42 PAIN alendronate sodium AdvReac Intermediate Chest Pain Verified 09/28/24 19:42 [From Fosamax] cimetidine AdvReac Intermediate HALLUCINATI Verified 09/28/24 19:42 ONS ciprofloxacin AdvReac Intermediate DOES NOT Verified 09/28/24 19:42 TOLERATE epinephrine AdvReac Intermediate Tachycardia Verified 09/28/24 19:42 levofloxacin [From Levaquin] AdvReac Intermediate Diarrhea Verified 09/28/24 19:42 lidocaine AdvReac Intermediate Tachycardia Verified 09/28/24 19:42 metronidazole [From Flagyl] AdvReac Intermediate Abdominal Verified 09/28/24 19:42 Pain prednisone AdvReac Intermediate "I heard Verified 09/28/24 19:42 voices and I felt crappy". propylene glycol AdvReac Intermediate BURNING Verified 09/28/24 19:42 SENSATION IN VAGINAL AREA sertraline AdvReac Intermediate PSYCH Verified 09/28/24 19:42 COMPLICATIONS simvastatin AdvReac Intermediate Chest Pain Verified 09/28/24 19:42 [id number] Reductase AdvReac Intermediate MUSCLE Verified 09/28/24 19:42 Inhibitor WEAKNESS [[id number]-Kml Reductase Inhibitor] ursodiol AdvReac Intermediate CAUSED Verified 09/28/24 19:42 HAIR LOSS valacyclovir [From Valtrex] AdvReac Intermediate RUQ ABD Verified 09/28/24 19:42 PAIN Ibandronic Acid AdvReac Intermediate GERD Uncoded 09/28/24 19:42 Consultations 09/28/24 17:11 ED Decision to Admit Stat Ordered Studies 09/28/24 15:38 CT angio chest PE protocol Stat Hospital Course (1) Exertional shortness of breath: 84-year-old female with significant past medical history of type 2 diabetes on metformin, hyperlipidemia, diabetic polyneuropathy, hiatal hernia, and also history of breast and ovarian cancer status post chemoradiation 32 years ago apparently has been complaining of shortness of breath with exertion associated with chest tightness for the last 2 weeks Remote history of possible asthma/hyperreactive airway disease and has been on as needed albuterol Exertional shortness of breath for the last 2 weeks. Noted to be hypoxic with ambulation in the ER Associated with chest heaviness but no definitive chest pain CTA negative for any pulmonary embolism but it did show bilateral groundglass attenuation compatible with alveolitis Biofire is negative Serial trop is normal and EKG is unchanged from prior TTE showed EF 60-65%, mod conc LVH, mild aortic root dilatation, mildly dilated ascending aorta, trivial circumferential pericardial effusion Patient was treated with steroids and nebs Her symptoms started improving Patient does not require oxygen at rest and 2-step today also showed no hypoxia/need for oxygen with activity No shortness of breath reported with test Discharged on prednisone 20mg daily for 2 more days to complete treatment Patient to continue to use her albuterol inh prn PCP to arrange Pulmonology referral if exertional dyspnea persists for further evaluation (2) T2DM (type 2 diabetes mellitus): HbA1c 6.6 Continue [employer] metformin (3) Peripheral neuropathy: Has been taking gabapentin (4) GERD (gastroesophageal reflux disease): Continue pepcid (5) Malignant neoplasm of ovary: History of ovarian and breast cancer Status post chemoradiation therapy 2 years ago (6) Malignant neoplasm of upper-outer quadrant of female breast: Total Time Total Time Spent Total Time Spent (In Minutes): 35 Total Time Includes: Examination of the Patient, Discharge Planning and M edication Reconciliation Discharge Plan Discharge Items Patient Disposition: Home - Self-Care Reason For Visit: Shortness of breath Discharge Diagnosis: Possible asthma exacerbation Alveolitis Condition on Discharge: Good Activity: Resume your previous activity Non-emergency contact: Primary Care Provider Call non-emergency contact if: you have any medication questions Follow-up/Referrals: Jacky Petty M.D. [Primary Care Provider] - Diet: Regular Addtl Attending Provider Instructions: Mrs Nava You were hospitalized and evaluated for shortness of breath with exertion. You are being discharged on prednisone for next few days. Please continue to use your inhaler. Please ensure follow up with your Primary Doctor. Your Primary Doctor can arrange for [facility] referral if your symptoms persist. It was a pleasure taking care of you Pending Studies at Discharge: No Stand-Alone Forms: My [facility] [employer], Smoking Cessation Medications and DC Order Prescriptions: New prednisone 20 mg tablet 20 mg PO DAILY 2 Days Qty: 2 0RF Continued lidocaine HCl [Lidocaine Viscous] 2 % Solution 5 ml PO QID PRN (Reason: Acid Reflux) melatonin 1 mg Tablet 1 mg PO HS PRN (Reason: Insomnia) lorazepam 0.5 mg Tablet 0.5 mg PO DAILY PRN (Reason: Anxiety) artificial tear(rgkoo-smh-tfp) 0.1-0.3-0.2 % Drops 1 drp OPHTHALMIC (EYE) QID PRN (Reason: Dry Eyes) chlorpheniramine maleate 4 mg Tablet 4 mg PO DIRECTED PRN (Reason: NEEDED PER [facility]) Rx Instructions: do not exceed 2 doses per 24 hrs sucralfate [Carafate] 1 gram Tablet 1 g PO ACHS PRN (Reason: ABD PAIN) vitamin B complex Tablet 1 tab PO QAM triamcinolone acetonide 0.05 % Ointment 1 applic TOPICAL BID PRN (Reason: Skin Irritation) cholecalciferol (vitamin D3) [Vitamin D3] 125 mcg (5,000 unit) Tablet 10,000 unit PO QAM acetaminophen [Tylenol Extra Strength] 500 mg Tablet 1,000 mg PO BID PRN (Reason: Pain) acyclovir 5 % Cream 1 applic TOPICAL BID PRN (Reason: Skin Irritation) Saccharomyces boulardii [Florastor] 250 mg Capsule 250 mg PO QAM omeprazole-sodium bicarbonate [Zegerid OTC] 20-1.1 mg-gram Capsule 1 cap PO QPM PRN (Reason: HEARTBURN/INDIGESTION) alclometasone 0.05 % Cream 1 applic TOPICAL BID PRN (Reason: Skin Irritation) goldenseal root 535 mg Capsule 535 mg PO DAILY PRN (Reason: as needed) ciclopirox 8 % Solution 1 applic TOPICAL HS PRN (Reason: as needed) mupirocin calcium 2 % Cream 1 applic TOPICAL BID PRN (Reason: NEEDED) docusate sodium 100 mg Capsule 100 mg PO BID PRN (Reason: Constipation) ketoconazole 2 % Cream 1 applic TOPICAL BID PRN (Reason: RED SCALY AREAS) Pancreatin Powder 1 g PO TIDM Rx Instructions: TAKES WITH MEALS & SNACKS. ondansetron 4 mg tablet,disintegrating 4 mg PO Q8H PRN (Reason: nausea and vomiting) Qty: 30 0RF Emergen-C 500 mg Tablet,Chewable 12 tab PO QAM phenazopyridine 200 mg tablet 200 mg PO TID PRN (Reason: uti symptoms) Rx Instructions: x 2 days estradiol 0.01 % (0.1 mg/gram) Cream 0.5 g VAGINAL .EVERY OTHER NIGHT wheat dextrin-calc glucon,lact 3 gram-300 mg/8.8 gram Powder 15 g PO QAM polyethylene glycol 3350 [Miralax] 17 gram/dose Powder 8.5 g PO 2XWK PRN (Reason: Constipation) boron aspartate 3 mg Capsule 3 mg PO TID flaxseed oil 1,000 mg Capsule 1,000 mg PO QAM Rx Instructions: administer with a meal vitamin A 5,000 unit/0.1 mL Drops 5,000 unit PO QAM pyridoxine (vitamin B6) [Vitamin B-6] 100 mg Tablet 100 mg PO AMHS PRN (Reason: when ill) geriatric multivitamin-min Tablet 1 tab PO QAM Systane (PF) 0.4-0.3 % Dropperette 1 drp OPB TID olopatadine 0.2 % Drops 1 drp OPB HS Super Enzyme [id number] mg Capsule 1 cap PO WM vitamin K2 (MK-4) 100 mcg Tablet 200 mcg PO QAM Rx Instructions: with MK7 cranberry extract 250 mg Capsule 250 mg PO DAILY Rx Instructions: administer with a meal calcium pantothenate 100 mg Tablet 100 mg PO QAM PRN (Reason: as needed) Nattokinase 50 mg Capsule 100 mg PO UD PRN (Reason: as directed) albuterol sulfate 90 mcg/actuation Hfa Aerosol Inhaler 2 puff INHALATION QID PRN (Reason: Shortness Of Breath Or Wheezing) Qty: 8.5 0RF gabapentin 100 mg capsule 100 mg PO HS metformin 500 mg Tablet Extended Release 24 Hr 500 mg PO QAM Oxbile Salt Tablets 1 - 4 tab PO TIDM Rx Instructions: DEPENDS ON AMOUNT OF FAT CONTENT IN MEAL. Saffron Tablet 50 mg PO DAILY psyllium Powder 1 tsp PO TID Rx Instructions: mix into at least 4 oz water or juice before administering Changed magnesium 250 mg Tablet 250 mg PO DAILY PRN (Reason: as needed) Qty: 0 0RF Discharge Orders: Discharge Order (Routine); Ordered 09/30/24 Ordered By: Lupe Mccarthy/Other Patient Handouts: Understanding Asthma Admission Data Admit Date/Time: 09/28/24 18:09 Attending Provider: Lupe Jolly I. Admit Provider: Joceline Pederson Primary Care Provider: Jacky Petty Other Providers: Joceline Pederson Other Interventions: Discharge Summary Assessment (RN) Last Done: 09/30/24 10:02
[2024-09-30 10:41] VITALS: PULSE 58
--- NOTE | 2024-09-30 15:08 | Electrocardiogram Report ---
Test Reason : Blood Pressure : */* mmHG Vent. Rate : 72 BPM Atrial Rate : 72 BPM P-R Int : 170 ms QRS Dur : 80 ms QT Int : 380 ms P-R-T Axes : 94 9 37 degrees QTcB Int : 416 ms Poor data quality, interpretation may be adversely affected Sinus rhythm with Premature atrial complexes Septal infarct (cited on or before 06-Aug-2024) Abnormal ECG When compared with ECG of 06-Aug-2024 08:27, Premature atrial complexes are now Present Confirmed by Chang Hidalgo ([id number]) on 09/30/2024 3:08:15 PM Referred By: REFERRED SELF Confirmed By: Chang Hidalgo
--- NOTE | 2024-10-01 14:27 | Electrocardiogram Report ---
Test Reason : Blood Pressure : */* mmHG Vent. Rate : 65 BPM Atrial Rate : 65 BPM P-R Int : 190 ms QRS Dur : 94 ms QT Int : 432 ms P-R-T Axes : 60 28 54 degrees QTcB Int : 449 ms Normal sinus rhythm Septal infarct (cited on or before 06-Aug-2024) Abnormal ECG When compared with ECG of 28-Sep-2024 15:22, (unconfirmed) No significant change was found Confirmed by Chang Hidalgo ([id number]) on 10/01/2024 2:27:00 PM Referred By: REFERRED SELF Confirmed By: Chang Hidalgo
--- NOTE | 2024-10-01 22:23 | Electrocardiogram Report ---
Test Reason : Blood Pressure : */* mmHG Vent. Rate : 60 BPM Atrial Rate : 60 BPM P-R Int : 196 ms QRS Dur : 86 ms QT Int : 416 ms P-R-T Axes : 29 4 33 degrees QTcB Int : 416 ms Normal sinus rhythm Septal infarct (cited on or before 06-Aug-2024) Abnormal ECG When compared with ECG of 28-Sep-2024 13:51, (unconfirmed) Premature atrial complexes are no longer Present Confirmed by Chang Hidalgo ([id number]) on 10/01/2024 10:23:39 PM Referred By: REFERRED SELF Confirmed By: Chang Hidalgo
== END 2024-09-30 12:50 | disposition home or self-care (01) | DRG 203 ==
LOC: ED 13:35 → SUATTDRO 18:09 → 2W 18:09

== ENCOUNTER 2024-11-24 16:14 | Inpatient (IN) ==
--- NOTE | 2024-11-24 16:42 | Emergency Department Note ---
Impression & Plan Intractable abdominal pain, Nausea, vomiting, and diarrhea ED Provider Note HISTORY OF PRESENT ILLNESS: Patient is an 84-year-old female presenting with abdominal pain and diarrhea. Patient reports she was diagnosed with diverticulitis 6 days ago. She has been taking Augmentin 3 times daily and using Zofran twice daily for the last few days. She reports she has had profuse episodes of vomiting, stating it is very watery and orange in color with "orange flecks." She states she is having 6-10 episodes of diarrhea a day. Reports nausea and multiple episodes of vomiting. Reports she is lost 6 pounds in the last week secondary to poor appetite and over volume loss. She reports she is having some lightheadedness and dizziness with standing. Denies any chest pain or shortness of breath. Denies any dysuria or hematuria. Denies any fevers. She is having increasing abdominal pain and locates it diffusely across her lower abdomen. ROS: as above PHYSICAL EXAM: Constitutional: Patient appears in no acute distress. HENT: Head: Normocephalic and atraumatic. Eyes: EOMI, PERRL Mouth/Throat: Mucous membranes moist. Neck: Trachea midline. Neck supple. Cardiovascular: RRR, No murmurs, rubs or gallops. Intact distal pulses. Pulmonary/Chest: No respiratory distress. Breath sounds clear and equal bilaterally. No wheezes or rales. Abdominal: Abdomen soft, no rebound or guarding. Diffuse bilateral lower quadrant TTP Musculoskeletal: No edema, tenderness or deformity noted. Skin: Warm and dry. No rash, erythema, pallor or cyanosis Psychiatric: Appropriate mood and affect for situation. Neurological: Alert and keenly responsive. CN II-XII grossly intact, moving all extremities equally and fully. MDM: - Vitals signs stable. - History obtained via patient. History as above. - Chronic conditions affecting care: GERD; DM-2; HLD; hx of breast and ovarian cancer - Differential diagnoses include, but are not limited to: Sigmoid perforation; abscess; antibiotic side effect; dehydration; electrolyte abnormality; C. difficile; infective colitis - Order placed for continuous cardiac monitoring. At this time, monitor showed rate of 66 bpm with normal sinus rhythm, per my interpretation. - External medical records reviewed. Discharge summary dated 09/30/2024 was reviewed. Patient was admitted for an asthma exacerbation. ED note dated 11/19/2024 was reviewed. Patient was started on Augmentin at that visit. - Laboratory workup interpreted by myself showed normal WBC; stable electrolytes; normal lactate; normal lipase; normal AST/ALT - UA negative for infection - CT abdomen/pelvis with IV contrast showed improved inflammatory changes in the sigmoid diverticulitis. No perforation or abscess. - Stool PCR negative - C diff negative - Patient given 2L NS, 15 mg IV toradol and 4 mg IV zofran in ER. - On reassessment, patient reports she still having abdominal pain. Given 1 g of IV Tylenol. - Discussed results with the patient. Patient reports she feels like she has been miserable at home over the last week and does not feel that she can go home at this point. She reports she is still having abdominal pain. Her diarrhea is likely secondary to her antibiotic usage. With her normal white blood cell count and improving CT imaging, I do not feel she requires a dose of antibiotics at this time. Will discuss case with hospitalist service. - Discussion was had with case maker about patient's case and need for admission - Hospitalist consulted for admission at 20:19 - Patient admitted to [facility] hospitalist service for further evaluation and management. ASSESSMENT AND PLAN: Diagnosis: Intractable abdominal pain; nausea, vomiting and diarrhea Plan: Admit Past Med/Surg History Problem List (Updated 11/24/24 @ 20:21 by Elvi Cheek MD) Nausea, vomiting, and diarrhea (Acute) Intractable abdominal pain (Acute) Acute diverticulitis (Acute) WRIGHT (dyspnea on exertion) (Acute) Exertional shortness of breath Diverticulitis (Acute) Abdominal pain, acute (Acute) Acute diarrhea (Acute) Dizziness (Acute) Headache (Acute) Lab test negative for COVID-19 virus (Acute) Diverticulitis (Acute) DVT prophylaxis T2DM (type 2 diabetes mellitus) Acute diverticulitis LPRD (laryngopharyngeal reflux disease) Gastritis Constipation Diverticulosis RUQ abdominal pain Abnormal CT scan Encounter for pre-operative examination Gastroparesis (Chronic) Peripheral neuropathy Ambulatory dysfunction Osteoporosis (Acute 02/17/12) Malignant neoplasm of ovary (Acute 02/17/12) Aortic atherosclerosis (Acute 02/17/12) GERD (gastroesophageal reflux disease) Dysphagia History of basal cell carcinoma (Acute) back, face tx with ulloa 2000 GERD (gastroesophageal reflux disease) (Acute) Medical History Degenerative disc disease History of left breast cancer 1991--sx/chemo/radiation History of ovarian cancer diagnosed 1991--pt states it was "a 00 rating"--found after hysterectomy Anxiety Actinic keratosis Dysplastic nevus Chemotherapy-induced neuropathy Prediabetes Pancreatitis Surgical History History of breast biopsy malignant History of dilatation and curettage History of thumb surgery right, tissue repair History of open reduction and internal fixation (ORIF) procedure left wrist--hardware removed History of open reduction and internal fixation (ORIF) procedure right tibia fx--hardware in place History of ERCP History of bilateral breast reduction surgery History of oral surgery gum sx History of root canal procedure History of wisdom tooth extraction History of tonsillectomy and adenoidectomy History of parathyroidectomy right side--benign tumor History of bilateral cataract extraction History of blepharoplasty bilt eyes, upper and lower History of hysterectomy d/t fibroids H/O oophorectomy History of colonoscopy History of appendectomy History of cholecystectomy Melanoma stage 1A, negative SLN right upper back 1999 stage 1A 0.2 mm superficial spreading ? location 2018 Dr. Toro Family History Mother Family history of diabetes mellitus Family hx colonic polyps Hearing loss Hypertension Stroke Heart disease Allergies Sister Family history of diabetes mellitus Family hx colonic polyps Hypertension Cancer Heart disease Allergies Brother Cancer Other No family history of adverse response to anesthesia No family history of bleeding disorder No significant family history Denies family history of Asthma Social History Smoking Status: Never smoker Tobacco Type: Cigarettes Second Hand Exposure: No; Do You Dip or Chew Tobacco: No; Hx Alcohol Use: No Hx Substance Use: No Preferred Language: Welsh Communication Ability: Effective [employer] Required: No Beliefs That Will Affect Care: None marital status: Current Living Situation: Spouse 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 Safe at Home: Yes Assistive Devices: Glasses and Other Allergies Allergies Allergy/AdvReac Type Severity Reaction Status Date / Time Proton Pump Inhibitors Allergy Severe Chest Pain Verified 09/28/24 19:42 sulfamethoxazole Allergy Severe Anaphylaxis-edema Verified 09/28/24 19:42 [From Bactrim] face, lips & tongue trimethoprim [From Bactrim] Allergy Severe Anaphylaxis-edema Verified 09/28/24 19:42 face, lips & tongue celecoxib [From Celebrex] Allergy Unknown PER [facility] Verified 09/28/24 19:42 carbamazepine AdvReac Severe pancreatiti Verified 09/28/24 19:42 s tramadol AdvReac Severe SOB, CHEST Verified 09/28/24 19:42 PAIN alendronate sodium AdvReac Intermediate Chest Pain Verified 09/28/24 19:42 [From Fosamax] cimetidine AdvReac Intermediate HALLUCINATI Verified 09/28/24 19:42 ONS ciprofloxacin AdvReac Intermediate DOES NOT Verified 09/28/24 19:42 TOLERATE epinephrine AdvReac Intermediate Tachycardia Verified 09/28/24 19:42 levofloxacin [From Levaquin] AdvReac Intermediate Diarrhea Verified 09/28/24 19:42 lidocaine AdvReac Intermediate Tachycardia Verified 09/28/24 19:42 metronidazole [From Flagyl] AdvReac Intermediate Abdominal Verified 09/28/24 19:42 Pain prednisone AdvReac Intermediate "I heard Verified 09/28/24 19:42 voices and I felt crappy". propylene glycol AdvReac Intermediate BURNING Verified 09/28/24 19:42 SENSATION IN VAGINAL AREA sertraline AdvReac Intermediate PSYCH Verified 09/28/24 19:42 COMPLICATIONS simvastatin AdvReac Intermediate Chest Pain Verified 09/28/24 19:42 Xynauff-PXP-NnW Reductase AdvReac Intermediate MUSCLE Verified 09/28/24 19:42 Inhibitor WEAKNESS [Zhlnjum-Gvw-Wtv Reductase Inhibitor] ursodiol AdvReac Intermediate CAUSED Verified 09/28/24 19:42 HAIR LOSS valacyclovir [From Valtrex] AdvReac Intermediate RUQ ABD Verified 09/28/24 19:42 PAIN Ibandronic Acid AdvReac Intermediate GERD Uncoded 09/28/24 19:42 Home Meds Home Medications Medication Instructions Recorded Confirmed artificial 1 drp ophthalmic (eye) QID PRN Dry 04/12/21 09/28/24 tears([id number]-[id number]) Eyes 0.1 %-0.3 %-0.2 % eye drops lidocaine HCl 2 % mucosal solution 5 ml PO QID PRN Acid Reflux 04/12/21 09/28/24 (Lidocaine Viscous) lorazepam 0.5 mg tablet 0.5 mg PO DAILY PRN Anxiety 04/12/21 09/28/24 melatonin 1 mg tablet 1 mg PO HS PRN Insomnia 04/12/21 09/28/24 chlorpheniramine maleate 4 mg 4 mg PO DIRECTED PRN NEEDED 10/16/21 09/28/24 tablet PER [facility] cholecalciferol (vitamin D3) 125 10,000 unit PO QAM 10/16/21 09/28/24 mcg (5,000 unit) tablet (Vitamin D3) sucralfate 1 gram tablet (Carafate) 1 g PO ACHS PRN ABD PAIN 10/16/21 09/28/24 triamcinolone acetonide 0.05 % 1 applic topical BID PRN Skin 10/16/21 09/28/24 topical ointment Irritation vitamin B complex 1 tab PO QAM 10/16/21 09/28/24 Saccharomyces boulardii 250 mg 250 mg PO QAM 10/17/21 09/28/24 capsule (Florastor) acetaminophen 500 mg tablet 1,000 mg PO BID PRN Pain 10/17/21 09/28/24 (Tylenol Extra Strength) acyclovir 5 % topical cream 1 applic topical BID PRN Skin 10/17/21 09/28/24 Irritation omeprazole 20 mg-sodium 1 cap PO QPM PRN 10/17/21 09/28/24 bicarbonate 1.1 gram capsule HEARTBURN/INDIGESTION (Zegerid OTC) Pancreatin Powder 1 g PO TIDM 02/10/23 09/28/24 alclometasone 0.05 % topical cream 1 applic topical BID PRN Skin 02/10/23 09/28/24 Irritation ciclopirox 8 % topical solution 1 applic topical HS PRN as needed 02/10/23 09/28/24 docusate sodium 100 mg capsule 100 mg PO BID PRN Constipation 02/10/23 09/28/24 goldenseal root 535 mg capsule 535 mg PO DAILY PRN as needed 02/10/23 09/28/24 ketoconazole 2 % topical cream 1 applic topical BID PRN RED SCALY 02/10/23 09/28/24 AREAS mupirocin calcium 2 % topical cream 1 applic topical BID PRN NEEDED 02/10/23 09/28/24 Oxbile Salt Tablets 1 - 4 tab PO TIDM 09/18/23 09/28/24 Saffron Tablet 50 mg PO DAILY 09/18/23 09/28/24 gabapentin 100 mg capsule 100 mg PO HS 09/18/23 09/28/24 metformin 500 mg tablet,extended 500 mg PO QAM 09/18/23 09/28/24 release 24 hr psyllium 1 tsp PO TID 01/08/24 09/28/24 Pancreat-Bet FOr-nad-oumh-pap 250 1 cap PO WM 09/28/24 09/28/24 mg-162 mg-65 mg-125 mg capsule (Super Enzyme) boron aspartate 3 mg (as 3 mg PO TID 09/28/24 09/28/24 aspartate) capsule calcium pantothenate 100 mg tablet 100 mg PO QAM PRN as needed 09/28/24 09/28/24 cranberry extract 250 mg capsule 250 mg PO DAILY 09/28/24 09/28/24 estradiol 0.01% (0.1 mg/gram) 0.5 g vaginal .EVERY OTHER NIGHT 09/28/24 09/28/24 vaginal cream flaxseed oil 1,000 mg capsule 1,000 mg PO QAM 09/28/24 09/28/24 geriatric multivitamin-min 1 tab PO QAM 09/28/24 09/28/24 olopatadine 0.2 % eye drops 1 drp OPB HS 09/28/24 09/28/24 peg 400-propylene glycol (PF) 0.4 1 drp OPB TID 09/28/24 09/28/24 %-0.3 % eye drops in a dropperette (Systane (PF)) phenazopyridine 200 mg tablet 200 mg PO TID PRN uti symptoms 09/28/24 09/28/24 polyethylene glycol 3350 17 8.5 g PO 2XWK PRN Constipation 09/28/24 09/28/24 gram/dose oral powder (Miralax) pyridoxine (vitamin B6) 100 mg 100 mg PO AMHS PRN when ill 09/28/24 09/28/24 tablet (Vitamin B-6) soybean, fermented 50 mg capsule 100 mg PO UD PRN as directed 09/28/24 09/28/24 (Nattokinase) vitamin A 5,000 unit/0.1 mL oral 5,000 unit PO QAM 09/28/24 09/28/24 drops vitamin C 500 mg-multivitamin with 12 tab PO QAM 09/28/24 09/28/24 minerals chewable tablet (Emergen-C) vitamin K2 (MK-4) 100 mcg tablet 200 mcg PO QAM 09/28/24 09/28/24 wheat dextrin 3 gram-calcium 15 g PO QAM 09/28/24 09/28/24 gluc,lactate 300 mg/8.8 gram oral powder Previous Rx's Medication Instructions Recorded ondansetron 4 mg disintegrating 4 mg PO Q8H PRN nausea and 02/10/23 tablet vomiting #30 tabs albuterol sulfate 90 mcg/actuation 2 puff inhalation QID PRN 09/30/24 aerosol inhaler Shortness Of Breath Or Wheezing #8.5 grams magnesium 250 mg tablet 250 mg PO DAILY PRN as needed #0 09/30/24 tabs amoxicillin 875 mg-potassium 1 tab PO TID 10 days #30 tabs 11/19/24 clavulanate 125 mg tablet Results & Data (ED) Vital Signs Vital Signs - 24 hr 11/24/24 16:18 11/24/24 17:08 11/24/24 17:31 Temperature 36.5 C Temperature Source Temporal Artery Scan Pulse Rate 73 66 Respiratory Rate 19 Respiratory Effort / Characteristics Non-Labored Spontaneous Respiratory Depth Normal Blood Pressure 130/79 Blood Pressure Mean 96 Pulse Oximetry 95 99 Oxygen Delivery Method Room Air Room Air Sepsis Recent Fever Within 48 Hours No Sepsis New/Unexplained Change in Mental Status No Sepsis Action Taken by Nursing No Action Required Laboratory Data 11/24/24 16:29 11/24/24 16:29 Lab Results 11/24/24 11/24/24 Range/Units 16:29 16:38 WBC 9.60 (4.8-10.8) K/ul RBC 4.02 L (4.20-5.40) M/uL Hgb 13.0 (12.0-16.0) g/dl Hct 36.4 L (37.0-47.0) % MCV 90.5 (80.0-100.0) fL MCH 32.3 (25.0-34.0) pg MCHC 35.7 (32.0-36.0) g/dL RDW Std Deviation 39.0 (36.4-46.3) fL RDW Coeff of Mack 11.9 (11.5-14.5) % Plt Count 351 (130-400) K/uL MPV 9.5 (9.4-12.4) fL Immature Gran % (Auto) 0.2 % Neut % (Auto) 54.5 % Lymph % (Auto) 33.2 % [place] % (Auto) 9.3 % Eos % (Auto) 2.2 % Baso % (Auto) 0.6 % Neut # (Auto) 5.23 (1.40-6.50) K/uL Lymph # (Auto) 3.19 (1.20-3.40) K/uL [place] # (Auto) 0.89 H (0.11-0.59) K/uL Eos # (Auto) 0.21 (0.00-0.50) K/uL Baso # (Auto) 0.06 (0.00-0.20) K/uL Immature Gran # (Auto) 0.02 (0.01-0.20) K/uL PT 10.6 (9.0-12.0) Seconds INR 1.0 (0.9-1.1) Sodium 138 (136-145) mmol/L Potassium 4.3 (3.5-5.1) mmol/L Chloride 108 H (98-107) mmol/L Carbon Dioxide 24 (21-32) mmol/L Anion Gap 6 (3-11) BUN 11 (6-23) mg/dl Creatinine 0.77 (0.6-1.2) mg/dl Est Cr Clr Drug Dosing 69.9 ml/min eGFR 76.49 BUN/Creatinine Ratio 14.3 (10-20) Glucose 112 H (70-99(Fasting)) mg/dl Lactate 1.4 (0.4-2.0) mmol/L Calcium 9.5 (8.6-10.3) mg/dl Total Bilirubin 0.3 (0.2-1.0) mg/dl AST 23 (13-39) U/L ALT 22 (7-52) U/L Alkaline Phosphatase 53 (34-104) U/L Total Protein 7.8 (6.0-8.3) gm/dl Albumin 4.2 (3.4-5.0) gm/dl Globulin 3.6 (2.5-4.0) gm/dl Albumin/Globulin Ratio 1.2 (0.9-2) Lipase 20 (11-82) U/L Urine Color Yellow Urine Appearance Clear (Clear) Urine pH 5.5 (4.5-7.5) Ur Specific [place] 1.010 (1.000-1.030) Urine Protein Negative (Negative) Urine Glucose (UA) Negative (Negative) Urine Ketones Negative (Negative) Urine Blood Negative (Negative) Urine Nitrite Negative (Negative) Urine Bilirubin Negative (Negative) Urine Urobilinogen Negative (Negative) Ur Leukocyte Esterase 2+ H (Negative) Urine WBC (Auto) 11-20 H (0-5) /hpf Urine RBC (Auto) 0-2 (0-2) /hpf U Hyaline Cast (Auto) 0-2 (0-2) /lpf U Epithel Cells (Auto) 0-2 (0-2) /hpf Urine Bacteria (Auto) None Seen (None Seen) Urine Comment Stl C. cayetanensis PCR Not Detected (NotDetected) Stool Rotavirus A PCR Not Detected (NotDetected) Stl Adenov F 40/41 PCR Not Detected (NotDetected) Stool Astrovirus (PCR) Not Detected (NotDetected) Stool Campylobacter PCR Not Detected (NotDetected) Stl C. diff Tox B Gene Negative Cdiff Gene (Neg) Stl C. diff [id number] NEGATIVE Stool Cryptosporidium PCR Not Detected (NotDetected) Stl E.coli Shiga Tox PCR Not Detected (NotDetected) Stl Enterotoxigenic E PCR Not Detected (NotDetected) Stool EPEC (PCR) Not Detected (NotDetected) Stool EAEC (PCR) Not Detected (NotDetected) Stl E. histolytica PCR Not Detected (NotDetected) Stool Giardia Lamblia PCR Not Detected (NotDetected) Stool Salmonella PCR Not Detected (NotDetected) Stool Sapovirus (PCR) Not Detected (NotDetected) Stl P. shigelloides PCR Not Detected (NotDetected) Stl Shigella/EIEC PCR Not Detected (NotDetected) St Y.enterocolitica PCR Not Detected (NotDetected) Stool Vibrio (PCR) Not Detected (NotDetected) Stl Vibrio cholerae PCR Not Detected (NotDetected) Stl Norovirus GI/GII PCR Not Detected (NotDetected) Administered Medications Discontinued Medications Sodium Chloride (Nss) 2,000 mls @ 999 mls/hr IV .Q2H1M ONE Stop: 11/24/24 18:39 Last Admin: 11/24/24 17:51 Dose: 999 mls/hr Documented By: EMMANUEL Ioversol (Optiray 320 100ml) 90 ml IV ONCE ONE Stop: 11/24/24 18:22 Last Admin: 11/24/24 18:22 Dose: 90 ml Documented By: CARROLL Ketorolac Tromethamine (Ketorolac Tromethamine 15 Mg/Ml Vial) 15 mg IV NOW STA Stop: 11/24/24 16:40 Last Admin: 11/24/24 17:52 Dose: 15 mg Documented By: EMMANUEL Ondansetron HCl (Ondansetron Inj 2 Mg/Ml 2 Ml Vial) 4 mg IV NOW STA Stop: 11/24/24 16:40 Last Admin: 11/24/24 17:52 Dose: 4 mg Documented By: EMMANUEL Imaging Data Radiologist's Impression: Abdomen/Pelvis CT 11/24/24 16:22 CT ABDOMEN and PELVIS with INTRAVENOUS CONTRAST HISTORY: Abdominal pain TECHNIQUE: CT abdomen and pelvis with contrast. IV CONTRAST: 100 mL of OMNIPAQUE 300 ENTERIC CONTRAST: Not Given COMPARISON: CT abdomen and pelvis performed 5 days previously. FINDINGS: LOWER CHEST: Mild cardiomegaly. Mild coronary and valvular calcifications LIVER: No focal lesion identified. Hepatic steatosis and mild hepatomegaly. GALLBLADDER/BILIARY: Surgically absent gallbladder. No abnormal biliary dilatation. SPLEEN: Unremarkable. PANCREAS: Unremarkable. ADRENALS: Unremarkable. KIDNEYS: Small cortical cysts. No stones or hydronephrosis identified. PERITONEUM/RETROPERITONEUM. No lymphadenopathy by size criteria. No aortic aneurysm. GASTROINTESTINAL: No obstruction. Inflammation related to diverticulitis of the sigmoid colon is improving. REPRODUCTIVE: Status post hysterectomy. URINARY BLADDER mildly inflamed with wall thickening. ABDOMINAL WALL small fat-containing inguinal hernias. BONES: No acute findings. IMPRESSION: Improving inflammatory changes of the sigmoid colonic diverticulitis. No evidence of perforation or abscess formation. 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 Provider: Elvi Cheek Discharge Problem: Intractable abdominal pain, Nausea, vomiting, and diarrhea Condition: Fair Forms Stand Alone Forms: [facility] Prescriptions Prescriptions: No Action lidocaine HCl [Lidocaine Viscous] 2 % Solution 5 ml PO QID PRN (Reason: Acid Reflux) melatonin 1 mg Tablet 1 mg PO HS PRN (Reason: Insomnia) lorazepam 0.5 mg Tablet 0.5 mg PO DAILY PRN (Reason: Anxiety) artificial tear(uqnsx-sfw-dqs) 0.1-0.3-0.2 % Drops 1 drp OPHTHALMIC (EYE) QID PRN (Reason: Dry Eyes) chlorpheniramine maleate 4 mg Tablet 4 mg PO DIRECTED PRN (Reason: NEEDED PER [facility]) Rx Instructions: do not exceed 2 doses per 24 hrs sucralfate [Carafate] 1 gram Tablet 1 g PO ACHS PRN (Reason: ABD PAIN) vitamin B complex Tablet 1 tab PO QAM triamcinolone acetonide 0.05 % Ointment 1 applic TOPICAL BID PRN (Reason: Skin Irritation) cholecalciferol (vitamin D3) [Vitamin D3] 125 mcg (5,000 unit) Tablet 10,000 unit PO QAM acetaminophen [Tylenol Extra Strength] 500 mg Tablet 1,000 mg PO BID PRN (Reason: Pain) acyclovir 5 % Cream 1 applic TOPICAL BID PRN (Reason: Skin Irritation) Saccharomyces boulardii [Florastor] 250 mg Capsule 250 mg PO QAM omeprazole-sodium bicarbonate [Zegerid OTC] 20-1.1 mg-gram Capsule 1 cap PO QPM PRN (Reason: HEARTBURN/INDIGESTION) alclometasone 0.05 % Cream 1 applic TOPICAL BID PRN (Reason: Skin Irritation) goldenseal root 535 mg Capsule 535 mg PO DAILY PRN (Reason: as needed) ciclopirox 8 % Solution 1 applic TOPICAL HS PRN (Reason: as needed) mupirocin calcium 2 % Cream 1 applic TOPICAL BID PRN (Reason: NEEDED) docusate sodium 100 mg Capsule 100 mg PO BID PRN (Reason: Constipation) ketoconazole 2 % Cream 1 applic TOPICAL BID PRN (Reason: RED SCALY AREAS) Pancreatin Powder 1 g PO TIDM Rx Instructions: TAKES WITH MEALS & SNACKS. ondansetron 4 mg tablet,disintegrating 4 mg PO Q8H PRN (Reason: nausea and vomiting) Qty: 30 0RF Emergen-C 500 mg Tablet,Chewable 12 tab PO QAM phenazopyridine 200 mg tablet 200 mg PO TID PRN (Reason: uti symptoms) Rx Instructions: x 2 days estradiol 0.01 % (0.1 mg/gram) Cream 0.5 g VAGINAL .EVERY OTHER NIGHT wheat dextrin-calc glucon,lact 3 gram-300 mg/8.8 gram Powder 15 g PO QAM polyethylene glycol 3350 [Miralax] 17 gram/dose Powder 8.5 g PO 2XWK PRN (Reason: Constipation) boron aspartate 3 mg Capsule 3 mg PO TID flaxseed oil 1,000 mg Capsule 1,000 mg PO QAM Rx Instructions: administer with a meal vitamin A 5,000 unit/0.1 mL Drops 5,000 unit PO QAM pyridoxine (vitamin B6) [Vitamin B-6] 100 mg Tablet 100 mg PO AMHS PRN (Reason: when ill) geriatric multivitamin-min Tablet 1 tab PO QAM Systane (PF) 0.4-0.3 % Dropperette 1 drp OPB TID olopatadine 0.2 % Drops 1 drp OPB HS Super Enzyme 024-169-07-125 mg Capsule 1 cap PO WM vitamin K2 (MK-4) 100 mcg Tablet 200 mcg PO QAM Rx Instructions: with MK7 cranberry extract 250 mg Capsule 250 mg PO DAILY Rx Instructions: administer with a meal calcium pantothenate 100 mg Tablet 100 mg PO QAM PRN (Reason: as needed) Nattokinase 50 mg Capsule 100 mg PO UD PRN (Reason: as directed) magnesium 250 mg Tablet 250 mg PO DAILY PRN (Reason: as needed) Qty: 0 0RF albuterol sulfate 90 mcg/actuation Hfa Aerosol Inhaler 2 puff INHALATION QID PRN (Reason: Shortness Of Breath Or Wheezing) Qty: 8.5 0RF amoxicillin-pot clavulanate 875-125 mg tablet 1 tab PO TID 10 Days Qty: 30 0RF gabapentin 100 mg capsule 100 mg PO HS metformin 500 mg Tablet Extended Release 24 Hr 500 mg PO QAM Oxbile Salt Tablets 1 - 4 tab PO TIDM Rx Instructions: DEPENDS ON AMOUNT OF FAT CONTENT IN MEAL. Saffron Tablet 50 mg PO DAILY psyllium Powder 1 tsp PO TID Rx Instructions: mix into at least 4 oz water or juice before administering Referrals Referrals: Jacky Petty M.D. [Primary Care Provider] -
[2024-11-24 16:55] LABS: Appearance Urine Clear (Clear); Bacteria Urine Automated None Seen (None Seen); Cast Urine Automated 0-2 /lpf (0-2); Epithelial Cell Urine Auto 0-2 /hpf (0-2); Glucose Urine UA Negative (Negative); RBC Urine Automated 0-2 /hpf (0-2)
[2024-11-24 16:56] LABS: Hematocrit (blood only) 36.4 % (37.0-47.0); Hemoglobin 13.0 g/dl (12.0-16.0); Immature Granulocytes # (auto) 0.02 K/uL (0.01-0.20); Immature Granulocytes % (auto) 0.2 %; Mean Corpuscular Hemoglobin 32.3 pg (25.0-34.0); Mean Corpuscular Volume 90.5 fL (80.0-100.0); Platelet Count 351 K/uL (130-400); RDW Standard Deviation 39.0 fL (36.4-46.3); Red Blood Count 4.02 M/uL (4.20-5.40); White Blood Count 9.60 K/ul (4.8-10.8)
[2024-11-24 17:16] LABS: Alanine Aminotransferase 22.0 U/L (7-52); Albumin Globulin Ratio 1.2 (0.9-2); Alkaline Phosphatase 53.0 U/L (34-104); Anion Gap 6.0 (3-11); Bilirubin,Total 0.3 mg/dl (0.2-1.0); Blood Urea Nitrogen 11.0 mg/dl (6-23); Calcium 9.5 mg/dl (8.6-10.3); Carbon Dioxide 24.0 mmol/L (21-32); Chloride 108.0 mmol/L (98-107); Creatinine Clr Calc Pharmacy 69.9 ml/min; Globulin 3.6 gm/dl (2.5-4.0); Glucose 112.0 mg/dl (70-99(Fasting)); Lipase 20.0 U/L (11-82); Potassium 4.3 mmol/L (3.5-5.1); Sodium 138.0 mmol/L (136-145); Total Protein 7.8 gm/dl (6.0-8.3)
[2024-11-24 17:21] LABS: INR 1.0 (0.9-1.1); Prothrombin Time 10.6 Seconds (9.0-12.0)
[2024-11-24] MEDS: SODIUM CHLORIDE 0.9% 2,000 ML IV ONE (17:51)
[2024-11-24] MEDS: KETOROLAC TROMETHAMINE 15 MG/ML VIAL IV STA (17:52)
[2024-11-24] MEDS: ONDANSETRON INJ 2 MG/ML 2 ML VIAL IV STA (17:52)
[2024-11-24] MEDS: OPTIRAY 320 100ml IV ONE (18:22)
[2024-11-24 18:38] LABS: Cdiff Toxin B Gene (2yr or >) Negative Cdiff Gene (Neg)
[2024-11-24 19:09] LABS: Adenovirus F 40/41 PCR Not Detected (NotDetected); Campylobacter PCR Not Detected (NotDetected); Enteroaggregative E.coli(EAEC) Not Detected (NotDetected); Shiga-like Toxin E.coli (STEC) Not Detected (NotDetected); Vibrio species PCR Not Detected (NotDetected)
--- NOTE | 2024-11-24 19:38 | CT Scan Report ---
CT ABDOMEN and PELVIS with INTRAVENOUS CONTRAST HISTORY: Abdominal pain TECHNIQUE: CT abdomen and pelvis with contrast. IV CONTRAST: 100 mL of OMNIPAQUE 300 ENTERIC CONTRAST: Not Given COMPARISON: CT abdomen and pelvis performed 5 days previously. FINDINGS: LOWER CHEST: Mild cardiomegaly. Mild coronary and valvular calcifications LIVER: No focal lesion identified. Hepatic steatosis and mild hepatomegaly. GALLBLADDER/BILIARY: Surgically absent gallbladder. No abnormal biliary dilatation. SPLEEN: Unremarkable. PANCREAS: Unremarkable. ADRENALS: Unremarkable. KIDNEYS: Small cortical cysts. No stones or hydronephrosis identified. PERITONEUM/RETROPERITONEUM. No lymphadenopathy by size criteria. No aortic aneurysm. GASTROINTESTINAL: No obstruction. Inflammation related to diverticulitis of the sigmoid colon is improving. REPRODUCTIVE: Status post hysterectomy. URINARY BLADDER mildly inflamed with wall thickening. ABDOMINAL WALL small fat-containing inguinal hernias. BONES: No acute findings. IMPRESSION: Improving inflammatory changes of the sigmoid colonic diverticulitis. No evidence of perforation or abscess formation. Mild inflammatory changes of the bladder may be due to cystitis Electronically signed by Hunter Freeman 11-24-2024 7:37 PM
[2024-11-24] MEDS: ACETAMINOPHEN 1,000 MG/100 ML VIAL IV STA (20:32)
[2024-11-24 20:42] LABS: Magnesium 1.8 mg/dl (1.7-2.4)
--- NOTE | 2024-11-24 21:56 | History & Physical Report ---
Date of Service November 24, 2024 Assessment & Plan (1) Acute diverticulitis: Plan: 84-year-old female with past medical history significant for type 2 diabetes , hyperlipidemia, exercise-induced asthma, history of nontoxic multinodular goiter, diabetic polyneuropathy, history of hiatal hernia with GERD, constipation, chronic kidney disease stage III, osteoporosis, idiopathic peripheral neuropathy, history of breast cancer, ovarian cancer who was recently diagnosed with diverticulitis and placed on Augmentin comes because of ongoing nausea, vomiting, diarrhea and abdominal pain. Patient says she is having abdominal pain since last Wednesday and was in the ER on Wednesday and CAT scan showed sigmoid diverticulitis and she was discharged home on p.o. Augmentin. Patient states she has a lot of nausea and vomiting and not able to eat anything. Also having lot of diarrhea. Denies bloody stools or black stools. Also having significant abdominal pain. Denies any fevers. Denies chest pain or shortness of breath. No cough currently. No headache. No runny nose or sore throat currently. Micturating okay. Currently hemodynamics are okay. About 5 weeks ago patient had cystocele/rectocele repair and recently had follow-up appointment with urogynecology and seems healing well. Acute diverticulitis Patient was diagnosed with diverticulitis last Wednesday and was placed on Augmentin Not able to tolerate p.o. and failed outpatient treatment Had diverticulitis in 2022 also Empirically placed on IV Zosyn. If not able to tolerate Zosyn with diarrhea we will change to Cipro and Flagyl Pain control Soft diet IV fluids Antiemetics as needed Surgical consult in AM. Diabetes Hold metformin Sliding scale Will monitor Exercise induced asthma On inhalers as needed GERD Will place on IV Protonix DVT prophylaxis Lovenox Disposition Medical floor Full code History of Present Illness Chief Complaint: Diverticulitis Primary Care Provider: Jacky Petty 84-year-old female with past medical history significant for type 2 diabetes , hyperlipidemia, exercise-induced asthma, history of nontoxic multinodular goiter, diabetic polyneuropathy, history of hiatal hernia with GERD, constipation, chronic kidney disease stage III, osteoporosis, idiopathic peripheral neuropathy, history of breast cancer, ovarian cancer who was recently diagnosed with diverticulitis and placed on Augmentin comes because of ongoing nausea, vomiting, diarrhea and abdominal pain. Patient says she is having abdominal pain since last Wednesday and was in the ER on Wednesday and CAT scan showed sigmoid diverticulitis and she was discharged home on p.o. Augmentin. Patient states she has a lot of nausea and vomiting and not able to eat anything. Also having lot of diarrhea. Denies bloody stools or black stools. Also having significant abdominal pain. Denies any fevers. Denies chest pain or shortness of breath. No cough currently. No headache. No runny nose or sore throat currently. Micturating okay. Currently hemodynamics are okay. About 5 weeks ago patient had cystocele/rectocele repair and recently had follow-up appointment with urogynecology and seems healing well. Past medical history. As mentioned above Past surgical history. Left breast lesion excision. Colonoscopy. Cystoscopy. Dental surgery. EGD. EGD with transendoscopic dilatation. EGD with biopsy. EGD with endoscopic ultrasound. ERCP with biopsy. Injection of the lumbosacral spine. Excision of melanoma. Right lumpectomy for cancer. Right thumb repair. Partial parathyroidectomy for parathyroid tumor. Reduction of breast. Appendectomy. Removal of ovaries. Cataract surgery. Cholecystectomy. Tonsillectomy. Repair of drooping eyebrow. Repair of vagina. Blepharoplasty. Hernia repair. Total abdominal hysterectomy with removal of tubes. Social history. . No smoking. No alcohol use. No drug use. Family history. Sister had breast cancer. Sister had bone cancer. Sister had diabetes. Sister heart disease. Mother had diabetes. Glaucoma. Heart disorder. Thyroid disorder. Sister had stroke. Brother had smoldering multiple myeloma. Allergies Allergy/AdvReac Type Severity Reaction Status Date / Time Proton Pump Inhibitors Allergy Severe Chest Pain Verified 09/28/24 19:42 sulfamethoxazole Allergy Severe Anaphylaxis-edema Verified 09/28/24 19:42 [From Bactrim] face, lips & tongue trimethoprim [From Bactrim] Allergy Severe Anaphylaxis-edema Verified 09/28/24 19:42 face, lips & tongue celecoxib [From Celebrex] Allergy Unknown PER [facility] Verified 09/28/24 19:42 carbamazepine AdvReac Severe pancreatiti Verified 09/28/24 19:42 s tramadol AdvReac Severe SOB, CHEST Verified 09/28/24 19:42 PAIN alendronate sodium AdvReac Intermediate Chest Pain Verified 09/28/24 19:42 [From Fosamax] cimetidine AdvReac Intermediate HALLUCINATI Verified 09/28/24 19:42 ONS ciprofloxacin AdvReac Intermediate DOES NOT Verified 09/28/24 19:42 TOLERATE epinephrine AdvReac Intermediate Tachycardia Verified 09/28/24 19:42 levofloxacin [From Levaquin] AdvReac Intermediate Diarrhea Verified 09/28/24 19:42 lidocaine AdvReac Intermediate Tachycardia Verified 09/28/24 19:42 metronidazole [From Flagyl] AdvReac Intermediate Abdominal Verified 09/28/24 19:42 Pain prednisone AdvReac Intermediate "I heard Verified 09/28/24 19:42 voices and I felt crappy". propylene glycol AdvReac Intermediate BURNING Verified 09/28/24 19:42 SENSATION IN VAGINAL AREA sertraline AdvReac Intermediate PSYCH Verified 09/28/24 19:42 COMPLICATIONS simvastatin AdvReac Intermediate Chest Pain Verified 09/28/24 19:42 Ensnnlv-BRZ-MfG Reductase AdvReac Intermediate MUSCLE Verified 09/28/24 19:42 Inhibitor WEAKNESS [Bozswgl-Kzg-Dje Reductase Inhibitor] ursodiol AdvReac Intermediate CAUSED Verified 09/28/24 19:42 HAIR LOSS valacyclovir [From Valtrex] AdvReac Intermediate RUQ ABD Verified 09/28/24 19:42 PAIN Ibandronic Acid AdvReac Intermediate GERD Uncoded 09/28/24 19:42 Home Medications Medication Instructions Recorded Confirmed Type albuterol sulfate 2.5 mg/3 mL 2.5 mg inhalation QID PRN sob 11/24/24 11/24/24 History (0.083 %) solution for nebulization amoxicillin 875 mg-potassium 1 tab PO TID 11/24/24 11/24/24 History clavulanate 125 mg tablet fluticasone 250 mcg-salmeterol 50 1 inh inhalation BID 11/24/24 11/24/24 History mcg/dose blistr powdr for inhalation folic acid 400 mcg tablet 0.4 mg PO DAILY 11/24/24 11/24/24 History gabapentin 100 mg capsule 100 mg PO HS 11/24/24 11/24/24 History metformin 500 mg tablet,extended 500 mg PO DAILY 11/24/24 11/24/24 History release 24 hr montelukast 10 mg tablet 10 mg PO HS 11/24/24 11/24/24 History Past Med/Surg History Problem List (Updated 11/24/24 @ 20:21 by Elvi Cheek MD) Nausea, vomiting, and diarrhea (Acute) Intractable abdominal pain (Acute) Acute diverticulitis (Acute) WRIGHT (dyspnea on exertion) (Acute) Exertional shortness of breath Diverticulitis (Acute) Abdominal pain, acute (Acute) Acute diarrhea (Acute) Dizziness (Acute) Headache (Acute) Lab test negative for COVID-19 virus (Acute) Diverticulitis (Acute) DVT prophylaxis T2DM (type 2 diabetes mellitus) Acute diverticulitis LPRD (laryngopharyngeal reflux disease) Gastritis Constipation Diverticulosis RUQ abdominal pain Abnormal CT scan Encounter for pre-operative examination Gastroparesis (Chronic) Peripheral neuropathy Ambulatory dysfunction Osteoporosis (Acute 02/17/12) Malignant neoplasm of ovary (Acute 02/17/12) Aortic atherosclerosis (Acute 02/17/12) GERD (gastroesophageal reflux disease) Dysphagia History of basal cell carcinoma (Acute) back, face tx with artemio 2000 GERD (gastroesophageal reflux disease) (Acute) Medical History Degenerative disc disease History of left breast cancer 1991--sx/chemo/radiation History of ovarian cancer diagnosed 1991--pt states it was "a 00 rating"--found after hysterectomy Anxiety Actinic keratosis Dysplastic nevus Chemotherapy-induced neuropathy Prediabetes Pancreatitis Surgical History History of breast biopsy malignant History of dilatation and curettage History of thumb surgery right, tissue repair History of open reduction and internal fixation (ORIF) procedure left wrist--hardware removed History of open reduction and internal fixation (ORIF) procedure right tibia fx--hardware in place History of ERCP History of bilateral breast reduction surgery History of oral surgery gum sx History of root canal procedure History of wisdom tooth extraction History of tonsillectomy and adenoidectomy History of parathyroidectomy right side--benign tumor History of bilateral cataract extraction History of blepharoplasty bilt eyes, upper and lower History of hysterectomy d/t fibroids H/O oophorectomy History of colonoscopy History of appendectomy History of cholecystectomy Melanoma stage 1A, negative SLN right upper back 1999 stage 1A 0.2 mm superficial spreading ? location 2018 Dr. Toro Family History Mother Family history of diabetes mellitus Family hx colonic polyps Hearing loss Hypertension Stroke Heart disease Allergies Sister Family history of diabetes mellitus Family hx colonic polyps Hypertension Cancer Heart disease Allergies Brother Cancer Other No family history of adverse response to anesthesia No family history of bleeding disorder No significant family history Denies family history of Asthma Social History Smoking Status: Never smoker Tobacco Type: Cigarettes Second Hand Exposure: No; Do You Dip or Chew Tobacco: No; Hx Alcohol Use: No Hx Substance Use: No Preferred Language: [place] Communication Ability: Effective 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 Neck- supple. Lungs- clear to auscultation no wheezing or crackles. Heart- regular rate and rhythm; no murmur, no gallop. Abdomen- normal bowel sounds, soft, left sided tenderness present, no distension Extremities- mild pretibial edema, no erythema seen Neuro- alert, oriented EOMI; no facial palsy; no dysarthria; Results & Data Results & Data Vital Signs (Past 12 Hours) Vital Signs Temp Pulse Resp BP Pulse Ox O2 Del Method 11/24/24 21:18 64 11/24/24 20:30 81 12 116/75 94 11/24/24 19:00 59 L 18 121/67 95 11/24/24 17:31 66 11/24/24 17:08 99 Room Air 11/24/24 16:18 36.5 C 73 19 130/79 95 Room Air Diagnostic Findings Laboratory Results WBC 9.60 K/ul (4.8-10.8) 11/24/24 16: RBC 4.02 M/uL (4.20-5.40) L 11/24/24 16:29 Hgb 13.0 g/dl (12.0-16.0) 11/24/24 16:29 Hct 36.4 % (37.0-47.0) L 11/24/24 16: MCV 90.5 fL (80.0-100.0) 11/24/24 16: MCH 32.3 pg (25.0-34.0) 11/24/24 16: MCHC 35.7 g/dL (32.0-36.0) 11/24/24 16: RDW Std Deviation 39.0 fL (36.4-46.3) 11/24/24: RDW Coeff of Mack 11.9 % (11.5-14.5) 11/24/24 16: Plt Count 351 K/uL (130-400) 11/24/24 16: MPV 9.5 fL (9.4-12.4) 11/24/24: Immature Gran % (Auto) 0.2 % 11/24/24 16: Neut % (Auto) 54.5 % 11/24/24 16: Lymph % (Auto) 33.2 % 11/24/24 16: [place] % (Auto) 9.3 % 11/24/24 16: Eos % (Auto) 2.2 % 11/24/24 16: Baso % (Auto) 0.6 % 11/24/24: Neut # (Auto) 5.23 K/uL (1.40-6.50) 11/24/24 16: Lymph # (Auto) 3.19 K/uL (1.20-3.40) 11/24/24 16: [place] # (Auto) 0.89 K/uL (0.11-0.59) H 11/24/24 16: Eos # (Auto) 0.21 K/uL (0.00-0.50) 11/24/24 16: Baso # (Auto) 0.06 K/uL (0.00-0.20) 11/24/24: Immature Gran # (Auto) 0.02 K/uL (0.01-0.20) 11/24/24 16: PT 10.6 Seconds (9.0-12.0) 11/24/24 16: INR 1.0 (0.9-1.1) 11/24/24 16: Sodium 138 mmol/L (136-145) 11/24/24 16: Potassium 4.3 mmol/L (3.5-5.1) 11/24/24 16: Chloride 108 mmol/L (98-107) H 11/24/24 16:29 Carbon Dioxide 24 mmol/L (21-32) 11/24/24 16:29 Anion Gap 6 (3-11) 11/24/24 16:29 BUN 11 mg/dl (6-23) 11/24/24 16: Creatinine 0.77 mg/dl (0.6-1.2) 11/24/24 16: Est Cr Clr Drug Dosing 69.9 ml/min 11/24/24 16:29 eGFR 76.49 11/24/24 16: BUN/Creatinine Ratio 14.3 (10-20) 11/24/24 16: Glucose 112 mg/dl (70-99(Fasting)) H 11/24/24 16:29 Lactate 1.4 mmol/L (0.4-2.0) 11/24/24 16:29 Calcium 9.5 mg/dl (8.6-10.3) 11/24/24 16: Magnesium 1.8 mg/dl (1.7-2.4) 11/24/24 16: Total Bilirubin 0.3 mg/dl (0.2-1.0) 11/24/24 16:29 AST 23 U/L (13-39) 11/24/24 16: ALT 22 U/L (7-52) 11/24/24 16: Alkaline Phosphatase 53 U/L (34-104) 11/24/24 16:29 Total Protein 7.8 gm/dl (6.0-8.3) 11/24/24 16:29 Albumin 4.2 gm/dl (3.4-5.0) 11/24/24 16: Globulin 3.6 gm/dl (2.5-4.0) 11/24/24 16: Albumin/Globulin Ratio 1.2 (0.9-2) 11/24/24 16:29 Lipase 20 U/L (11-82) 11/24/24 16:29 Urine Color Yellow 11/24/24 16:38 Urine Appearance Clear (Clear) 11/24/24 16:38 Urine pH 5.5 (4.5-7.5) 11/24/24 16:38 Ur Specific [place] 1.010 (1.000-1.030) 11/24/24 16:38 Urine Protein Negative (Negative) 11/24/24 16:38 Urine Glucose (UA) Negative (Negative) 11/24/24 16:38 Urine Ketones Negative (Negative) 11/24/24 16:38 Urine Blood Negative (Negative) 11/24/24 16:38 Urine Nitrite Negative (Negative) 11/24/24 16:38 Urine Bilirubin Negative (Negative) 11/24/24 16:38 Urine Urobilinogen Negative (Negative) 11/24/24 16:38 Ur Leukocyte Esterase 2+ (Negative) H 11/24/24 16:38 Urine WBC (Auto) 11-20 /hpf (0-5) H 11/24/24 16:38 Urine RBC (Auto) 0-2 /hpf (0-2) 11/24/24 16:38 U Hyaline Cast (Auto) 0-2 /lpf (0-2) 11/24/24 16:38 U Epithel Cells (Auto) 0-2 /hpf (0-2) 11/24/24 16:38 Urine Bacteria (Auto) None Seen (None Seen) 11/24/24 16:38 Urine Comment 11/24/24 16:38 Stl C. cayetanensis PCR Not Detected (NotDetected) 11/24/24 16:38 Stool Rotavirus A PCR Not Detected (NotDetected) 11/24/24 16:38 Stl Adenov F 40/41 PCR Not Detected (NotDetected) 11/24/24 16:38 Stool Astrovirus (PCR) Not Detected (NotDetected) 11/24/24 16:38 Stool Campylobacter PCR Not Detected (NotDetected) 11/24/24 16:38 Stl C. diff Tox B Gene Negative Cdiff Gene (Neg) 11/24/24 16:38 Stl C. diff [id number] NEGATIVE 11/24/24 16:38 Stool Cryptosporidium PCR Not Detected (NotDetected) 11/24/24 16:38 Stl E.coli Shiga Tox PCR Not Detected (NotDetected) 11/24/24 16:38 Stl Enterotoxigenic E PCR Not Detected (NotDetected) 11/24/24 16:38 Stool EPEC (PCR) Not Detected (NotDetected) 11/24/24 16:38 Stool EAEC (PCR) Not Detected (NotDetected) 11/24/24 16:38 Stl E. histolytica PCR Not Detected (NotDetected) 11/24/24 16:38 Stool Giardia Lamblia PCR Not Detected (NotDetected) 11/24/24 16:38 Stool Salmonella PCR Not Detected (NotDetected) 11/24/24 16:38 Stool Sapovirus (PCR) Not Detected (NotDetected) 11/24/24 16:38 Stl P. shigelloides PCR Not Detected (NotDetected) 11/24/24 16:38 Stl Shigella/EIEC PCR Not Detected (NotDetected) 11/24/24 16:38 St Y.enterocolitica PCR Not Detected (NotDetected) 11/24/24 16:38 Stool Vibrio (PCR) Not Detected (NotDetected) 11/24/24 16:38 Stl Vibrio cholerae PCR Not Detected (NotDetected) 11/24/24 16:38 Stl Norovirus GI/GII PCR Not Detected (NotDetected) 11/24/24 16:38 Impressions Abdomen/Pelvis CT 11/24/24 16:22 CT ABDOMEN and PELVIS with INTRAVENOUS CONTRAST HISTORY: Abdominal pain TECHNIQUE: CT abdomen and pelvis with contrast. IV CONTRAST: 100 mL of OMNIPAQUE 300 ENTERIC CONTRAST: Not Given COMPARISON: CT abdomen and pelvis performed 5 days previously. FINDINGS: LOWER CHEST: Mild cardiomegaly. Mild coronary and valvular calcifications LIVER: No focal lesion identified. Hepatic steatosis and mild hepatomegaly. GALLBLADDER/BILIARY: Surgically absent gallbladder. No abnormal biliary dilatation. SPLEEN: Unremarkable. PANCREAS: Unremarkable. ADRENALS: Unremarkable. KIDNEYS: Small cortical cysts. No stones or hydronephrosis identified. PERITONEUM/RETROPERITONEUM. No lymphadenopathy by size criteria. No aortic aneurysm. GASTROINTESTINAL: No obstruction. Inflammation related to diverticulitis of the sigmoid colon is improving. REPRODUCTIVE: Status post hysterectomy. URINARY BLADDER mildly inflamed with wall thickening. ABDOMINAL WALL small fat-containing inguinal hernias. BONES: No acute findings. IMPRESSION: Improving inflammatory changes of the sigmoid colonic diverticulitis. No evidence of perforation or abscess formation. Mild inflammatory changes of the bladder may be due to cystitis Electronically signed by Hunter Freeman 11-24-2024 7:37 PM Code Status & VTE Plan VTE Prophylaxis Plan VTE Prophylaxis will be ordered: Yes
[2024-11-24] MEDS ORDERED: DEXTROSE 50% 50 ML SYRINGE IV PRN (23:10)
[2024-11-24] MEDS ORDERED: GLUCAGON FOR INJ 1 MG VIAL SQ PRN (23:10)
[2024-11-24] MEDS ORDERED: GLUCOSE 10 TAB/TUBE PO PRN (23:10)
[2024-11-24] MEDS ORDERED: GLUCOSE 40% GEL 15 GM TUBE PO PRN (23:10)
[2024-11-24] MEDS ORDERED: ONDANSETRON INJ 2 MG/ML 2 ML VIAL IV PRN (23:10)
[2024-11-24] MEDS ORDERED: CARBOHYDRATES FOR HYPOGLYCEMIA PO PRN (23:10)
[2024-11-25] MEDS: 4.5GM X1 IV STA (01:01)
[2024-11-25] MEDS: SODIUM CHLORIDE 0.9% 1,000 ML IV SCH (01:02)
[2024-11-25] MEDS: PIPERACILLIN/TAZOBACTAM 4.5 GM/100 ML BAG IV SCH (06:03)
--- NOTE | 2024-11-25 07:36 | Surgery Consultation ---
Date of Consultation November 25, 2024 Assessment & Plan (1) Acute diverticulitis: 84-year-old with ongoing diverticulitis. Sounds like she was unable to tolerate the Augmentin at home, which led to increasing pain with nausea and vomiting as well as diarrhea. CT scan demonstrates improving diverticulitis wit hout evidence of perforation. No need for surgical services. Will sign off. Please call with any questions or concerns. History of Present Illness Reason for Consultation: Diverticulitis Requesting Physician: Joceline Pederson MD Attending Physician: Joceline Pederson MD History of Present Illness 84-year-old woman presented almost 1 week ago with diverticulitis. She was placed on antibiotics and sent home. She was not able to tolerate the Augmentin. She has been having multiple episodes of nausea vomiting and diarrhea every time she takes the Augmentin. She returns due to increasing pain. She denies fevers or chills. She denies other complaints. CT scan demonstrates diverticulitis, improving from the prior CT scan. Allergies Allergy/AdvReac Type Severity Reaction Status Date / Time Proton Pump Inhibitors Allergy Severe Chest Pain Verified 09/28/24 19:42 sulfamethoxazole Allergy Severe Anaphylaxis-edema Verified 09/28/24 19:42 [From Bactrim] face, lips & tongue trimethoprim [From Bactrim] Allergy Severe Anaphylaxis-edema Verified 09/28/24 19:42 face, lips & tongue celecoxib [From Celebrex] Allergy Unknown PER [facility] Verified 09/28/24 19:42 carbamazepine AdvReac Severe pancreatiti Verified 09/28/24 19:42 s tramadol AdvReac Severe SOB, CHEST Verified 09/28/24 19:42 PAIN alendronate sodium AdvReac Intermediate Chest Pain Verified 09/28/24 19:42 [From Fosamax] cimetidine AdvReac Intermediate HALLUCINATI Verified 09/28/24 19:42 ONS ciprofloxacin AdvReac Intermediate DOES NOT Verified 09/28/24 19:42 TOLERATE epinephrine AdvReac Intermediate Tachycardia Verified 09/28/24 19:42 levofloxacin [From Levaquin] AdvReac Intermediate Diarrhea Verified 09/28/24 19:42 lidocaine AdvReac Intermediate Tachycardia Verified 09/28/24 19:42 metronidazole [From Flagyl] AdvReac Intermediate Abdominal Verified 09/28/24 19:42 Pain prednisone AdvReac Intermediate "I heard Verified 09/28/24 19:42 voices and I felt crappy". propylene glycol AdvReac Intermediate BURNING Verified 09/28/24 19:42 SENSATION IN VAGINAL AREA sertraline AdvReac Intermediate PSYCH Verified 09/28/24 19:42 COMPLICATIONS simvastatin AdvReac Intermediate Chest Pain Verified 09/28/24 19:42 [id number] Reductase AdvReac Intermediate MUSCLE Verified 09/28/24 19:42 Inhibitor WEAKNESS [Thirxfn-Njz-Vru Reductase Inhibitor] ursodiol AdvReac Intermediate CAUSED Verified 09/28/24 19:42 HAIR LOSS valacyclovir [From Valtrex] AdvReac Intermediate RUQ ABD Verified 09/28/24 19:42 PAIN Ibandronic Acid AdvReac Intermediate GERD Uncoded 09/28/24 19:42 Home Medications Medication Instructions Recorded Confirmed Type albuterol sulfate 2.5 mg/3 mL 2.5 mg inhalation QID PRN sob 11/24/24 11/24/24 History (0.083 %) solution for nebulization amoxicillin 875 mg-potassium 1 tab PO TID 11/24/24 11/24/24 History clavulanate 125 mg tablet fluticasone 250 mcg-salmeterol 50 1 inh inhalation BID 11/24/24 11/24/24 History mcg/dose blistr powdr for inhalation folic acid 400 mcg tablet 0.4 mg PO DAILY 11/24/24 11/24/24 History gabapentin 100 mg capsule 100 mg PO HS 11/24/24 11/24/24 History metformin 500 mg tablet,extended 500 mg PO DAILY 11/24/24 11/24/24 History release 24 hr montelukast 10 mg tablet 10 mg PO HS 11/24/24 11/24/24 History Patient History Medical History Degenerative disc disease History of left breast cancer 1991--sx/chemo/radiation History of ovarian cancer diagnosed 1991--pt states it was "a 00 rating"--found after hysterectomy Anxiety Actinic keratosis Dysplastic nevus Chemotherapy-induced neuropathy Prediabetes Pancreatitis Surgical History History of breast biopsy malignant History of dilatation and curettage History of thumb surgery right, tissue repair History of open reduction and internal fixation (ORIF) procedure left wrist--hardware removed History of open reduction and internal fixation (ORIF) procedure right tibia fx--hardware in place History of ERCP History of bilateral breast reduction surgery History of oral surgery gum sx History of root canal procedure History of wisdom tooth extraction History of tonsillectomy and adenoidectomy History of parathyroidectomy right side--benign tumor History of bilateral cataract extraction History of blepharoplasty bilt eyes, upper and lower History of hysterectomy d/t fibroids H/O oophorectomy History of colonoscopy History of appendectomy History of cholecystectomy Melanoma stage 1A, negative SLN right upper back 1999 stage 1A 0.2 mm superficial spreading ? location 2018 Dr. Toro Family History Mother Family history of diabetes mellitus Family hx colonic polyps Hearing loss Hypertension Stroke Heart disease Allergies Sister Family history of diabetes mellitus Family hx colonic polyps Hypertension Cancer Heart disease Allergies Brother Cancer Other No family history of adverse response to anesthesia No family history of bleeding disorder No significant family history Denies family history of Asthma Social History Smoking Status: Never smoker Tobacco Type: Cigarettes Second Hand Exposure: No; Do You Dip or Chew Tobacco: No; Hx Alcohol Use: No Hx Substance Use: No Preferred Language: Chinese Communication Ability: Effective Auto Clutch Rebuilder Required: No Beliefs That Will Affect Care: None marital status: Current Living Situation: Spouse 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 Safe at Home: Yes Assistive Devices: Glasses and Other Review of Systems Review of Systems: All systems reviewed & are unremarkable except as noted in HPI & below Physical Exam Constitutional: WD/WN, vitals as above Eyes: PERRL, conjunctivae normal, anicteric sclerae Neck: trachea midline, no thyromegaly Respiratory: normal respiratory effort; no respiratory distress and no labored breathing Cardiovascular: Rate/Rhythm: regular rate and regular rhythm Gastrointestinal (Abdomen): Inspection/Auscultation: abdomen normal to inspection; abdomen not distended Percussion/Palpation: + abdomen tender ( Mild TTP in LLQ) and abdomen soft; no guarding and abdomen not rigid Skin: no rashes, warm and dry Psychiatric: A+Ox3, euthymic affect Results & Data Vital Signs (Past 12 Hours) Vital Signs Pulse Pulse Resp BP BP Pulse Ox O2 Del Method 11/25/24 07:14 74 11/25/24 04:00 54 L 16 114/62 94 Room Air 11/25/24 00:06 61 16 129/89 94 Room Air 11/25/24 00:00 61 16 129/89 94 Room Air 11/24/24 22:30 60 19 132/73 11/24/24 22:00 66 20 133/76 95 11/24/24 21:33 64 21 150/91 H 11/24/24 21:18 64 11/24/24 21:12 57 L 19 119/77 93 11/24/24 20:30 81 12 116/75 94 Laboratory Results 11/24/24 11/24/24 Range/Units 16:38 16:29 WBC 9.60 (4.8-10.8) K/ul RBC 4.02 L (4.20-5.40) M/uL Hgb 13.0 (12.0-16.0) g/dl Hct 36.4 L (37.0-47.0) % MCV 90.5 (80.0-100.0) fL MCH 32.3 (25.0-34.0) pg MCHC 35.7 (32.0-36.0) g/dL RDW Std Deviation 39.0 (36.4-46.3) fL RDW Coeff of Mack 11.9 (11.5-14.5) % Plt Count 351 (130-400) K/uL MPV 9.5 (9.4-12.4) fL Immature Gran % (Auto) 0.2 % Neut % (Auto) 54.5 % Lymph % (Auto) 33.2 % Ritchie % (Auto) 9.3 % Eos % (Auto) 2.2 % Baso % (Auto) 0.6 % Neut # (Auto) 5.23 (1.40-6.50) K/uL Lymph # (Auto) 3.19 (1.20-3.40) K/uL Ritchie # (Auto) 0.89 H (0.11-0.59) K/uL Eos # (Auto) 0.21 (0.00-0.50) K/uL Baso # (Auto) 0.06 (0.00-0.20) K/uL Immature Gran # (Auto) 0.02 (0.01-0.20) K/uL PT 10.6 (9.0-12.0) Seconds INR 1.0 (0.9-1.1) Sodium 138 (136-145) mmol/L Potassium 4.3 (3.5-5.1) mmol/L Chloride 108 H (98-107) mmol/L Carbon Dioxide 24 (21-32) mmol/L Anion Gap 6 (3-11) BUN 11 (6-23) mg/dl Creatinine 0.77 (0.6-1.2) mg/dl Est Cr Clr Drug Dosing 69.9 ml/min eGFR 76.49 BUN/Creatinine Ratio 14.3 (10-20) Glucose 112 H (70-99(Fasting)) mg/dl Lactate 1.4 (0.4-2.0) mmol/L Calcium 9.5 (8.6-10.3) mg/dl Magnesium 1.8 (1.7-2.4) mg/dl Total Bilirubin 0.3 (0.2-1.0) mg/dl AST 23 (13-39) U/L ALT 22 (7-52) U/L Alkaline Phosphatase 53 (34-104) U/L Total Protein 7.8 (6.0-8.3) gm/dl Albumin 4.2 (3.4-5.0) gm/dl Globulin 3.6 (2.5-4.0) gm/dl Albumin/Globulin Ratio 1.2 (0.9-2) Lipase 20 (11-82) U/L Urine Color Yellow Urine Appearance Clear (Clear) Urine pH 5.5 (4.5-7.5) Ur Specific [place] 1.010 (1.000-1.030) Urine Protein Negative (Negative) Urine Glucose (UA) Negative (Negative) Urine Ketones Negative (Negative) Urine Blood Negative (Negative) Urine Nitrite Negative (Negative) Urine Bilirubin Negative (Negative) Urine Urobilinogen Negative (Negative) Ur Leukocyte Esterase 2+ H (Negative) Urine WBC (Auto) 11-20 H (0-5) /hpf Urine RBC (Auto) 0-2 (0-2) /hpf U Hyaline Cast (Auto) 0-2 (0-2) /lpf U Epithel Cells (Auto) 0-2 (0-2) /hpf Urine Bacteria (Auto) None Seen (None Seen) Urine Comment Stl C. cayetanensis PCR Not Detected (NotDetected) Stool Rotavirus A PCR Not Detected (NotDetected) Stl Adenov F 40/41 PCR Not Detected (NotDetected) Stool Astrovirus (PCR) Not Detected (NotDetected) Stool Campylobacter PCR Not Detected (NotDetected) Stl C. diff Tox B Gene Negative Cdiff Gene (Neg) Stl C. diff [id number] NEGATIVE Stool Cryptosporidium PCR Not Detected (NotDetected) Stl E.coli Shiga Tox PCR Not Detected (NotDetected) Stl Enterotoxigenic E PCR Not Detected (NotDetected) Stool EPEC (PCR) Not Detected (NotDetected) Stool EAEC (PCR) Not Detected (NotDetected) Stl E. histolytica PCR Not Detected (NotDetected) Stool Giardia Lamblia PCR Not Detected (NotDetected) Stool Salmonella PCR Not Detected (NotDetected) Stool Sapovirus (PCR) Not Detected (NotDetected) Stl P. shigelloides PCR Not Detected (NotDetected) Stl Shigella/EIEC PCR Not Detected (NotDetected) St Y.enterocolitica PCR Not Detected (NotDetected) Stool Vibrio (PCR) Not Detected (NotDetected) Stl Vibrio cholerae PCR Not Detected (NotDetected) Stl Norovirus GI/GII PCR Not Detected (NotDetected) Diagnostic Findings CT ABDOMEN and PELVIS with INTRAVENOUS CONTRAST HISTORY: Abdominal pain TECHNIQUE: CT abdomen and pelvis with contrast. IV CONTRAST: 100 mL of OMNIPAQUE 300 ENTERIC CONTRAST: Not Given COMPARISON: CT abdomen and pelvis performed 5 days previously. FINDINGS: LOWER CHEST: Mild cardiomegaly. Mild coronary and valvular calcifications LIVER: No focal lesion identified. Hepatic steatosis and mild hepatomegaly. GALLBLADDER/BILIARY: Surgically absent gallbladder. No abnormal biliary dilatation. SPLEEN: Unremarkable. PANCREAS: Unremarkable. ADRENALS: Unremarkable. KIDNEYS: Small cortical cysts. No stones or hydronephrosis identified. PERITONEUM/RETROPERITONEUM. No lymphadenopathy by size criteria. No aortic aneurysm. GASTROINTESTINAL: No obstruction. Inflammation related to diverticulitis of the sigmoid colon is improving. REPRODUCTIVE: Status post hysterectomy. URINARY BLADDER mildly inflamed with wall thickening. ABDOMINAL WALL small fat-containing inguinal hernias. BONES: No acute findings. IMPRESSION: Improving inflammatory changes of the sigmoid colonic diverticulitis. No evidence of perforation or abscess formation. Mild inflammatory changes of the bladder may be due to cystitis Electronically signed by Hunter Freeman 11-24-2024 7:37 PM Dictated: 11/24/24 1822 Transcribed:
[2024-11-25] MEDS: ENOXAPARIN INJ 40 MG/0.4 ML SYR SQ SCH (08:09)
[2024-11-25] MEDS: INSULIN ASPART PER UNIT CHARGE SC SCH (08:09)
[2024-11-25] MEDS: FOLIC ACID 400 MCG TAB PO SCH (08:10)
[2024-11-25] MEDS: FLUTICASONE/VILANTEROL 200/25MCG 14 PUFFS/INHALER INH SCH (08:10)
--- NOTE | 2024-11-25 14:14 | Hospitalist Progress Note ---
Date of Service November 25, 2024 Assessment & Plan (1) Acute diverticulitis: Plan: 84-year-old female with past medical history significant for type 2 diabetes , hyperlipidemia, exercise-induced asthma, history of nontoxic multinodular goiter, diabetic polyneuropathy, history of hiatal hernia with GERD, constipation, chronic kidney disease stage III, osteoporosis, idiopathic peripheral neuropathy, history of breast cancer, ovarian cancer who was recently diagnosed with diverticulitis and placed on Augmentin comes because of ongoing nausea, vomiting, diarrhea and abdominal pain. Patient says she is having abdominal pain since last Wednesday and was in the ER on Wednesday and CAT scan showed sigmoid diverticulitis and she was discharged home on p.o. Augmentin. Patient states she has a lot of nausea and vomiting and not able to eat anything. Also having lot of diarrhea. Denies bloody stools or black stools. Also having significant abdominal pain. Denies any fevers. Denies chest pain or shortness of breath. No cough currently. No headache. No runny nose or sore throat currently. Micturating okay. Currently hemodynamics are okay. About 5 weeks ago patient had cystocele/rectocele repair and recently had follow-up appointment with urogynecology and seems healing well. Acute diverticulitis Patient was diagnosed with diverticulitis last Wednesday and was placed on Augmentin Not able to tolerate p.o. and failed outpatient treatment Had diverticulitis in 2022 also Empirically placed on IV Zosyn. If not able to tolerate Zosyn with diarrhea we will change to Cipro and Flagyl Pain control Antiemetics as needed Surgical consult in AM-appreciate input and recommendation She has been tolerating intravenous Zosyn and will plan to continue for the total 10 days of antibiotic Started with soft diet and has been tolerating and remains free from any GI symptoms Diarrhea is controlled Diabetes Hold metformin Sliding scale Will monitor Exercise induced asthma On inhalers as needed GERD Will place on IV Protonix DVT prophylaxis Lovenox Disposition Medical floor Full code Admission and Anticipated Discharge Date Admission Date: November 24, 2024 Subjective 11/25/2024 The patient was seen and examined in medical floor She has been very anxious and she seems to be intolerant of Augmentin, Cipro and Flagyl She does not have any more diarrhea and denies any significant abdominal pain Review of Systems Review of Systems: All systems reviewed and are unremarkable except as noted below Physical Exam Physical Exam: Lying in bed with acute anxiety without any other distress Constitutional: well developed, well nourished and average body habitus; not ill appearing Eyes: PERRL, conjunctivae normal, anicteric sclerae ENMT: external ear and nose normal, oropharynx normal Neck: trachea midline, no thyromegaly Respiratory: no respiratory distress Auscultation: lungs clear to auscultation bilaterally Cardiovascular: Rate/Rhythm: regular rate and regular rhythm; not tachycardic Heart Sounds: normal S1 and normal S2; no murmur Extremities: no edema Gastrointestinal (Abdomen): Inspection/Auscultation: normal bowel sounds; abdomen not distended Percussion/Palpation: abdomen soft; abdomen nontender Musculoskeletal: No acute arthritis involving any of the joint Neurologic: normal touch/pain/proprioception and moves all extremities; no focal motor deficits Psychiatric: Mood: + anxious mood Results & Data Results & Data Vital Signs (Past 12 Hours) Vital Signs Temp Pulse Pulse Resp BP Pulse Ox O2 Del Method 11/25/24 09:11 36.6 C 59 L 20 108/57 L 97 Room Air 11/25/24 08:00 59 L 18 118/58 L 94 Room Air 11/25/24 07:14 74 11/25/24 04:00 54 L 16 114/62 94 Room Air Laboratory Results Short CBC 11/24/24 Range/Units 16:29 WBC 9.60 (4.8-10.8) K/ul Hgb 13.0 (12.0-16.0) g/dl Hct 36.4 L (37.0-47.0) % Plt Count 351 (130-400) K/uL BMP 11/24/24 16:29 Sodium 138 Potassium 4.3 Chloride 108 H Carbon Dioxide 24 BUN 11 Creatinine 0.77 Glucose 112 H Calcium 9.5 Liver Function 11/24/24 Range/Units 16:29 Total Bilirubin 0.3 (0.2-1.0) mg/dl AST 23 (13-39) U/L ALT 22 (7-52) U/L Alkaline Phosphatase 53 (34-104) U/L Albumin 4.2 (3.4-5.0) gm/dl Urine 11/24/24 Range/Units 16:38 Urine Color Yellow Urine Appearance Clear (Clear) Urine pH 5.5 (4.5-7.5) Ur Specific [place] 1.010 (1.000-1.030) Urine Protein Negative (Negative) Urine Glucose (UA) Negative (Negative) Medications Administered Current Inpatient Medications Albuterol (Albuterol 0.083% Nebu Soln 3 Ml Vial) 2.5 mg INH QID PRN; Protocol PRN Reason: sob Stop: 12/24/24 23:09 Dextrose (Dextrose 50% 50 Ml Syringe) 25 - 50 ml IV UD PRN; Protocol PRN Reason: Hypoglycemia Protocol Stop: 12/24/24 23:09 Enoxaparin Sodium (Enoxaparin Inj 40 Mg/0.4 Ml Syr) 40 mg SQ QAM [place] Stop: 12/25/24 08:59 Last Admin: 11/25/24 08:09 Dose: 40 mg Fluticasone/Vilanterol (Fluticasone/Vilanterol 200/25mcg 14 Puffs/Inhaler) 1 puffs INH DAILY [facility] Stop: 12/25/24 08:59 Last Admin: 11/25/24 08:10 Dose: 1 puffs Folic Acid (Folic Acid 400 Mcg Tab) 400 mcg PO DAILY [facility] Stop: 12/25/24 08:59 Last Admin: 11/25/24 08:10 Dose: 400 mcg Gabapentin (Gabapentin 100 Mg Cap) 100 mg PO HS [place] Stop: 12/25/24 20:59 Glucagon (Glucagon For Inj 1 Mg Vial) 1 mg SQ UD PRN; Protocol PRN Reason: Hypoglycemia Protocol Stop: 12/24/24 23:09 Glucose (Glucose 40% Gel 15 Gm Tube) 15 - 30 gm PO UD PRN; Protocol PRN Reason: Hypoglycemia Protocol Stop: 12/24/24 23:09 Glucose (Glucose 10 Tab/Tube) 4 - 8 tab PO UD PRN; Protocol PRN Reason: Hypoglycemia Protocol Stop: 12/24/24 23:09 Sodium Chloride (Nss) 1,000 mls @ 100 mls/hr IV .Q10H [place] Stop: 11/27/24 23:09 Last Admin: 11/25/24 12:04 Dose: 100 mls/hr Acetaminophen (Ofirmev) 1,000 mg in 100 mls @ 400 mls/hr IV Q8H PRN PRN Reason: Pain or Fever Stop: 11/27/24 23:09 Piperacillin Sod/Tazobactam Sod (Zosyn) 4.5 gm in 100 mls @ 25 mls/hr IV Q8H [facility]; Protocol Stop: 12/05/24 05:59 Last Admin: 11/25/24 13:59 Dose: 25 mls/hr Insulin Aspart (Insulin Aspart Per Unit Charge) 0 units SC ACHS [facility] Stop: 12/25/24 07:29 Last Admin: 11/25/24 12:18 Dose: Not Given Lorazepam (Lorazepam 0.5 Mg Tab) 0.5 mg PO BID PRN PRN Reason: Anxiety Stop: 12/25/24 11:31 Melatonin (Melatonin 3 Mg Tab) 3 mg PO HS PRN PRN Reason: Sleep Stop: 12/24/24 23:09 Miscellaneous (Carbohydrates For Hypoglycemia ) 15 - 30 gm PO UD PRN PRN Reason: Hypoglycemia Protocol Stop: 12/24/24 23:09 Montelukast Sodium (Montelukast Sodium 10 Mg Tablet) 10 mg PO HS [place] Stop: 12/25/24 20:59 Ondansetron HCl (Ondansetron Inj 2 Mg/Ml 2 Ml Vial) 4 mg IV Q6H PRN PRN Reason: Nausea Stop: 12/24/24 23:09
[2024-11-25] MEDS: MONTELUKAST SODIUM 10 MG TABLET PO SCH (19:33)
[2024-11-25] MEDS: GABAPENTIN 100 MG CAP PO SCH (19:33)
[2024-11-25] MEDS: MELATONIN 3 MG TAB PO PRN (19:42)
[2024-11-25] MEDS: LORazepam 0.5 MG TAB PO PRN (19:42)
[2024-11-25] MEDS: ACETAMINOPHEN 1,000 MG/100 ML VIAL IV PRN (20:34)
[2024-11-25] MEDS: ALBUTEROL 0.083% NEBU SOLN 3 ML VIAL INH PRN (23:58)
[2024-11-26] MEDS: ALUMINUM/MAGNESIUM/SIMETH (MAALOX MAX) 30 ML UDC PO STA ×2 (02:45→04:13)
[2024-11-26] MEDS: FAMOTIDINE 20MG IV PUSH 20 MG/5 ML SYR IV STA (04:30)
[2024-11-26] MEDS ORDERED: PIPERACILLIN/TAZOBACTAM 4.5 GM/100 ML BAG IV SCH (06:00)
[2024-11-26 07:46] LABS: Anion Gap 7.0 (3-11); Calcium 9.4 mg/dl (8.6-10.3); Carbon Dioxide 23.0 mmol/L (21-32); Chloride 111.0 mmol/L (98-107); Magnesium 1.9 mg/dl (1.7-2.4); Potassium 3.7 mmol/L (3.5-5.1); Sodium 141.0 mmol/L (136-145)
[2024-11-26 07:51] LABS: Hematocrit (blood only) 32.5 % (37.0-47.0); Hemoglobin 11.0 g/dl (12.0-16.0); Immature Granulocytes # (auto) 0.02 K/uL (0.01-0.20); Immature Granulocytes % (auto) 0.3 %; Mean Corpuscular Hemoglobin 31.3 pg (25.0-34.0); Mean Corpuscular Volume 92.3 fL (80.0-100.0); Platelet Count 218 K/uL (130-400); RBC Morphology Unremarkable; RDW Standard Deviation 40.9 fL (36.4-46.3); Red Blood Count 3.52 M/uL (4.20-5.40); White Blood Count 7.23 K/ul (4.8-10.8)
[2024-11-26 07:52] LABS: Blood Urea Nitrogen 10.0 mg/dl (6-23); Creatinine Clr Calc Pharmacy 74.8 ml/min; Glucose 128.0 mg/dl (70-99(Fasting))
--- NOTE | 2024-11-26 13:56 | Hospitalist Progress Note ---
Date of Service November 26, 2024 Assessment & Plan (1) Acute diverticulitis: Plan: 84-year-old female with past medical history significant for type 2 diabetes , hyperlipidemia, exercise-induced asthma, history of nontoxic multinodular goiter, diabetic polyneuropathy, history of hiatal hernia with GERD, constipation, chronic kidney disease stage III, osteoporosis, idiopathic peripheral neuropathy, history of breast cancer, ovarian cancer who was recently diagnosed with diverticulitis and placed on Augmentin comes because of ongoing nausea, vomiting, diarrhea and abdominal pain. Patient says she is having abdominal pain since last Wednesday and was in the ER on Wednesday and CAT scan showed sigmoid diverticulitis and she was discharged home on p.o. Augmentin. Patient states she has a lot of nausea and vomiting and not able to eat anything. Also having lot of diarrhea. Denies bloody stools or black stools. Also having significant abdominal pain. Denies any fevers. Denies chest pain or shortness of breath. No cough currently. No headache. No runny nose or sore throat currently. Micturating okay. Currently hemodynamics are okay. About 5 weeks ago patient had cystocele/rectocele repair and recently had follow-up appointment with urogynecology and seems healing well. Acute diverticulitis Patient was diagnosed with diverticulitis last Wednesday and was placed on Augmentin Not able to tolerate p.o. and failed outpatient treatment Had diverticulitis in 2022 also Empirically placed on IV Zosyn. If not able to tolerate Zosyn with diarrhea we will change to Cipro and Flagyl Pain control Antiemetics as needed Surgical consult in AM-appreciate input and recommendation She has been tolerating intravenous Zosyn and will plan to continue for the total 10 days of antibiotic Started with soft diet and has been tolerating and remains free from any GI symptoms Diarrhea is controlled Does not have any significant GI symptoms and diarrhea seems to be controlled Will continue with intravenous Zosyn for the next 2 days and possible discharge on Wednesday Possible anxiety attack Has had chest tightness with palpitation and minimal wheezing last night Condition resolved with use of Maalox and inhalers and including nebulized treatment No signs and or symptoms of asthma exacerbation this morning Diabetes Hold metformin Sliding scale Will monitor Exercise induced asthma On inhalers as needed GERD Will place on IV Protonix DVT prophylaxis Lovenox Disposition Medical floor Full code Admission and Anticipated Discharge Date Admission Date: November 24, 2024 Subjective 11/25/2024 The patient was seen and examined in medical floor She has been very anxious and she seems to be intolerant of Augmentin, Cipro and Flagyl She does not have any more diarrhea and denies any significant abdominal pain today 11/26/2024 The patient was seen and examined in medical floor She has had an attack of anxiety last night and did not have good sleep Has been feeling much better this morning Denies any abdominal pain, nausea or vomiting and diarrhea seems to be controlled Review of Systems Review of Systems: All systems reviewed and are unremarkable except as noted below Physical Exam Physical Exam: Lying in bed with acute anxiety without any other distress Constitutional: well developed, well nourished and average body habitus; not ill appearing Eyes: PERRL, conjunctivae normal, anicteric sclerae ENMT: external ear and nose normal, oropharynx normal Neck: trachea midline, no thyromegaly Respiratory: no respiratory distress Auscultation: lungs clear to auscultation bilaterally Cardiovascular: Rate/Rhythm: regular rate and regular rhythm; not tachycardic Heart Sounds: normal S1 and normal S2; no murmur Extremities: no edema Gastrointestinal (Abdomen): Inspection/Auscultation: normal bowel sounds; abdomen not distended Percussion/Palpation: abdomen soft; abdomen nontender Neurologic: normal touch/pain/proprioception and moves all extremities; no focal motor deficits Psychiatric: Mood: + anxious mood Results & Data Results & Data Vital Signs (Past 12 Hours) Vital Signs Temp Pulse Resp BP Pulse Ox O2 Del Method 11/26/24 09:33 Room Air 11/26/24 08:27 36.2 C L 55 L 16 133/72 97 Room Air Laboratory Results Short CBC 11/26/24 Range/Units 06:54 WBC 7.23 (4.8-10.8) K/ul Hgb 11.0 L (12.0-16.0) g/dl Hct 32.5 L (37.0-47.0) % Plt Count 218 (130-400) K/uL BMP 11/26/24 06:54 Sodium 141 Potassium 3.7 Chloride 111 H Carbon Dioxide 23 BUN 10 Creatinine 0.72 Glucose 128 H Calcium 9.4 Medications Administered Current Inpatient Medications Albuterol (Albuterol 0.083% Nebu Soln 3 Ml Vial) 2.5 mg INH QID PRN; Protocol PRN Reason: sob Stop: 12/24/24 23:09 Last Admin: 11/25/24 23:58 Dose: 2.5 mg Dextrose (Dextrose 50% 50 Ml Syringe) 25 - 50 ml IV UD PRN; Protocol PRN Reason: Hypoglycemia Protocol Stop: 12/24/24 23:09 Enoxaparin Sodium (Enoxaparin Inj 40 Mg/0.4 Ml Syr) 40 mg SQ QAM [facility] Stop: 12/25/24 08:59 Last Admin: 11/26/24 09:22 Dose: 40 mg Fluticasone/Vilanterol (Fluticasone/Vilanterol 200/25mcg 14 Puffs/Inhaler) 1 puffs INH DAILY [facility] Stop: 12/25/24 08:59 Last Admin: 11/26/24 09:22 Dose: 1 puffs Folic Acid (Folic Acid 400 Mcg Tab) 400 mcg PO DAILY [facility] Stop: 12/25/24 08:59 Last Admin: 11/26/24 09:22 Dose: 400 mcg Gabapentin (Gabapentin 100 Mg Cap) 100 mg PO HS [facility] Stop: 12/25/24 20:59 Last Admin: 11/25/24 19:38 Dose: Not Given Glucagon (Glucagon For Inj 1 Mg Vial) 1 mg SQ UD PRN; Protocol PRN Reason: Hypoglycemia Protocol Stop: 12/24/24 23:09 Glucose (Glucose 40% Gel 15 Gm Tube) 15 - 30 gm PO UD PRN; Protocol PRN Reason: Hypoglycemia Protocol Stop: 12/24/24 23:09 Glucose (Glucose 10 Tab/Tube) 4 - 8 tab PO UD PRN; Protocol PRN Reason: Hypoglycemia Protocol Stop: 12/24/24 23:09 Sodium Chloride (Nss) 1,000 mls @ 100 mls/hr IV .Q10H [facility] Stop: 11/27/24 23:09 Last Admin: 11/26/24 11:44 Dose: Not Given Acetaminophen (Ofirmev) 1,000 mg in 100 mls @ 400 mls/hr IV Q8H PRN PRN Reason: Pain or Fever Stop: 11/27/24 23:09 Last Infusion: 11/25/24 20:56 Dose: Infused Piperacillin Sod/Tazobactam Sod (Zosyn) 4.5 gm in 100 mls @ 25 mls/hr IV Q8H [facility]; Protocol Stop: 12/05/24 05:59 Last Infusion: 11/26/24 10:14 Dose: Infused Insulin Aspart (Insulin Aspart Per Unit Charge) 0 units SC ACHS [facility] Stop: 12/25/24 07:29 Last Admin: 11/26/24 12:40 Dose: Not Given Lorazepam (Lorazepam 0.5 Mg Tab) 0.5 mg PO BID PRN PRN Reason: Anxiety Stop: 12/25/24 11:31 Last Admin: 11/25/24 19:42 Dose: 0.5 mg Melatonin (Melatonin 3 Mg Tab) 3 mg PO HS PRN PRN Reason: Sleep Stop: 12/24/24 23:09 Last Admin: 11/25/24 19:42 Dose: 3 mg Miscellaneous (Carbohydrates For Hypoglycemia ) 15 - 30 gm PO UD PRN PRN Reason: Hypoglycemia Protocol Stop: 12/24/24 23:09 Montelukast Sodium (Montelukast Sodium 10 Mg Tablet) 10 mg PO HS [facility] Stop: 12/25/24 20:59 Last Admin: 11/25/24 20:46 Dose: 10 mg Ondansetron HCl (Ondansetron Inj 2 Mg/Ml 2 Ml Vial) 4 mg IV Q6H PRN PRN Reason: Nausea Stop: 12/24/24 23:09
[2024-11-26 22:54] VITALS: RESP 18
[2024-11-26] MEDS ORDERED: KETOROLAC TROMETHAMINE 15 MG/ML VIAL IV PRN (23:26)
[2024-11-26] MEDS: KETOROLAC TROMETHAMINE 15 MG/ML VIAL IV ONE (23:40)
[2024-11-27] MEDS: IBUPROFEN 200 MG TAB PO STA (01:19)
[2024-11-27] MEDS: FAMOTIDINE 20MG IV PUSH 20 MG/5 ML SYR IV STA (04:05)
[2024-11-27] MEDS: PIPERACILLIN/TAZOBACTAM 4.5 GM/100 ML BAG IV SCH (10:44)
[2024-11-27 11:28] LABS: Cdiff Toxin B Gene (2yr or >) Negative Cdiff Gene (Neg)
[2024-11-27] MEDS: IBUPROFEN 600 MG TAB PO PRN (15:21)
--- NOTE | 2024-11-27 16:25 | Hospitalist Progress Note ---
Date of Service November 27, 2024 Assessment & Plan (1) Acute diverticulitis: Plan: 84-year-old female with past medical history significant for type 2 diabetes , hyperlipidemia, exercise-induced asthma, history of nontoxic multinodular goiter, diabetic polyneuropathy, history of hiatal hernia with GERD, constipation, chronic kidney disease stage III, osteoporosis, idiopathic peripheral neuropathy, history of breast cancer, ovarian cancer who was recently diagnosed with diverticulitis and placed on Augmentin comes because of ongoing nausea, vomiting, diarrhea and abdominal pain. Patient says she is having abdominal pain since last Wednesday and was in the ER on Wednesday and CAT scan showed sigmoid diverticulitis and she was discharged home on p.o. Augmentin. Patient states she has a lot of nausea and vomiting and not able to eat anything. Also having lot of diarrhea. Denies bloody stools or black stools. Also having significant abdominal pain. Denies any fevers. Denies chest pain or shortness of breath. No cough currently. No headache. No runny nose or sore throat currently. Micturating okay. Currently hemodynamics are okay. About 5 weeks ago patient had cystocele/rectocele repair and recently had follow-up appointment with urogynecology and seems healing well. Acute diverticulitis Patient was diagnosed with diverticulitis last Wednesday and was placed on Augmentin Not able to tolerate p.o. and failed outpatient treatment Had diverticulitis in 2022 also Empirically placed on IV Zosyn. If not able to tolerate Zosyn with diarrhea we will change to Cipro and Flagyl Pain control Antiemetics as needed Surgical consult in AM-appreciate input and recommendation She has been tolerating intravenous Zosyn and will plan to continue for the total 10 days of antibiotic Started with soft diet and has been tolerating and remains free from any GI symptoms Diarrhea is controlled Does not have any significant GI symptoms and diarrhea seems to be controlled Will continue with intravenous Zosyn for the next 2 days and possible discharge on Wednesday Zosyn was on hold throughout the night due to causing possible bronchial fasciitis The patient was reassured and given ibuprofen for mild or active plantar fasciitis and Zosyn was restarted Likely discharge tomorrow Possible anxiety attack Has had chest tightness with palpitation and minimal wheezing last night Condition resolved with use of Maalox and inhalers and including nebulized treatment No signs and or symptoms of asthma exacerbation this morning Diabetes Hold metformin Sliding scale Will monitor Exercise induced asthma On inhalers as needed GERD Will place on IV Protonix DVT prophylaxis Lovenox Disposition Medical floor Full code Admission and Anticipated Discharge Date Admission Date: November 24, 2024 Subjective 11/25/2024 The patient was seen and examined in medical floor She has been very anxious and she seems to be intolerant of Augmentin, Cipro and Flagyl She does not have any more diarrhea and denies any significant abdominal pain today 11/26/2024 The patient was seen and examined in medical floor She has had an attack of anxiety last night and did not have good sleep Has been feeling much better this morning Denies any abdominal pain, nausea or vomiting and diarrhea seems to be controlled 11/27/2024 The patient was seen and examined in medical floor She has been complaining of right shoulder pain on moving around and thinks that it is due to Zosyn Reassured that she likely has mild plantar fasciitis and antibiotic has been restarted Review of Systems Review of Systems: All systems reviewed and are unremarkable except as noted below Physical Exam Physical Exam: Lying in bed with acute anxiety without any other distress Constitutional: well developed, well nourished and average body habitus; not ill appearing Eyes: PERRL, conjunctivae normal, anicteric sclerae ENMT: external ear and nose normal, oropharynx normal Neck: trachea midline, no thyromegaly Respiratory: no respiratory distress Auscultation: lungs clear to auscultation bilaterally Cardiovascular: Rate/Rhythm: regular rate and regular rhythm; not tachycardic Heart Sounds: normal S1 and normal S2; no murmur Extremities: no edema Gastrointestinal (Abdomen): Inspection/Auscultation: normal bowel sounds; abdomen not distended Percussion/Palpation: abdomen soft; abdomen nontender Neurologic: normal touch/pain/proprioception and moves all extremities; no focal motor deficits Psychiatric: Mood: + anxious mood Results & Data Results & Data Vital Signs (Past 12 Hours) Vital Signs Temp Pulse Resp BP Pulse Ox O2 Del Method 11/27/24 15:16 36.6 C 53 L 18 121/71 95 Room Air 11/27/24 08:30 Room Air 11/27/24 08:11 36.4 C L 52 L 18 144/73 H 95 Room Air Medications Administered Current Inpatient Medications Al Hydrox/Mg Hydrox/Simethicone (Aluminum/Magnesium/Simeth (Maalox Max) 30 Ml Udc) 30 ml PO Q6H PRN PRN Reason: Heartburn Stop: 12/27/24 03:15 Albuterol (Albuterol 0.083% Nebu Soln 3 Ml Vial) 2.5 mg INH QID PRN; Protocol PRN Reason: sob Stop: 12/24/24 23:09 Last Admin: 11/25/24 23:58 Dose: 2.5 mg Dextrose (Dextrose 50% 50 Ml Syringe) 25 - 50 ml IV UD PRN; Protocol PRN Reason: Hypoglycemia Protocol Stop: 12/24/24 23:09 Enoxaparin Sodium (Enoxaparin Inj 40 Mg/0.4 Ml Syr) 40 mg SQ QAM [facility] Stop: 12/25/24 08:59 Last Admin: 11/27/24 09:05 Dose: 40 mg Fluticasone/Vilanterol (Fluticasone/Vilanterol 200/25mcg 14 Puffs/Inhaler) 1 puffs INH DAILY [facility] Stop: 12/25/24 08:59 Last Admin: 11/27/24 09:06 Dose: 1 puffs Folic Acid (Folic Acid 400 Mcg Tab) 400 mcg PO DAILY [facility] Stop: 12/25/24 08:59 Last Admin: 11/27/24 09:06 Dose: 400 mcg Gabapentin (Gabapentin 100 Mg Cap) 100 mg PO HS [facility] Stop: 12/25/24 20:59 Last Admin: 11/26/24 20:29 Dose: Not Given Glucagon (Glucagon For Inj 1 Mg Vial) 1 mg SQ UD PRN; Protocol PRN Reason: Hypoglycemia Protocol Stop: 12/24/24 23:09 Glucose (Glucose 40% Gel 15 Gm Tube) 15 - 30 gm PO UD PRN; Protocol PRN Reason: Hypoglycemia Protocol Stop: 12/24/24 23:09 Glucose (Glucose 10 Tab/Tube) 4 - 8 tab PO UD PRN; Protocol PRN Reason: Hypoglycemia Protocol Stop: 12/24/24 23:09 Sodium Chloride (Nss) 1,000 mls @ 100 mls/hr IV .Q10H [facility] Stop: 11/27/24 23:09 Last Admin: 11/27/24 10:35 Dose: 100 mls/hr Acetaminophen (Ofirmev) 1,000 mg in 100 mls @ 400 mls/hr IV Q8H PRN PRN Reason: Pain or Fever Stop: 11/27/24 23:09 Last Infusion: 11/26/24 15:19 Dose: Infused Piperacillin Sod/Tazobactam Sod (Zosyn) 4.5 gm in 100 mls @ 25 mls/hr IV Q8H [facility]; Protocol Stop: 12/07/24 10:29 Last Infusion: 11/27/24 15:21 Dose: Infused Ibuprofen (Ibuprofen 600 Mg Tab) 600 mg PO Q8H PRN PRN Reason: Pain Stop: 12/27/24 11:29 Last Admin: 11/27/24 15:21 Dose: 600 mg Insulin Aspart (Insulin Aspart Per Unit Charge) 0 units SC [facility] Stop: 12/25/24 07:29 Last Admin: 11/27/24 12:11 Dose: 1 units Lorazepam (Lorazepam 0.5 Mg Tab) 0.5 mg PO BID PRN PRN Reason: Anxiety Stop: 12/25/24 11:31 Last Admin: 11/25/24 19:42 Dose: 0.5 mg Melatonin (Melatonin 3 Mg Tab) 3 mg PO HS PRN PRN Reason: Sleep Stop: 12/24/24 23:09 Last Admin: 11/26/24 23:55 Dose: 3 mg Miscellaneous (Carbohydrates For Hypoglycemia ) 15 - 30 gm PO UD PRN PRN Reason: Hypoglycemia Protocol Stop: 12/24/24 23:09 Montelukast Sodium (Montelukast Sodium 10 Mg Tablet) 10 mg PO HS [facility] Stop: 12/25/24 20:59 Last Admin: 11/26/24 20:29 Dose: 10 mg Ondansetron HCl (Ondansetron Inj 2 Mg/Ml 2 Ml Vial) 4 mg IV Q6H PRN PRN Reason: Nausea Stop: 12/24/24 23:09
[2024-11-27] MEDS: ALUMINUM/MAGNESIUM/SIMETH (MAALOX MAX) 30 ML UDC PO PRN (23:37)
[2024-11-28 07:22] LABS: Hematocrit (blood only) 32.3 % (37.0-47.0); Hemoglobin 10.8 g/dl (12.0-16.0); Immature Granulocytes # (auto) 0.02 K/uL (0.01-0.20); Immature Granulocytes % (auto) 0.3 %; Mean Corpuscular Hemoglobin 30.9 pg (25.0-34.0); Mean Corpuscular Volume 92.3 fL (80.0-100.0); Platelet Count 301 K/uL (130-400); RDW Standard Deviation 41.1 fL (36.4-46.3); Red Blood Count 3.50 M/uL (4.20-5.40); White Blood Count 7.36 K/ul (4.8-10.8)
[2024-11-28 07:37] LABS: Anion Gap 5.0 (3-11); Blood Urea Nitrogen 16.0 mg/dl (6-23); Calcium 9.2 mg/dl (8.6-10.3); Carbon Dioxide 26.0 mmol/L (21-32); Chloride 109.0 mmol/L (98-107); Creatinine Clr Calc Pharmacy 58.5 ml/min; Glucose 107.0 mg/dl (70-99(Fasting)); Potassium 3.7 mmol/L (3.5-5.1); Sodium 140.0 mmol/L (136-145)
[2024-11-28 07:47] VITALS: BP 120/75; PULSE 53; TEMP 97.5; O2SAT 96
[2024-11-28] MEDS: PNEUMOCOCCAL VACCINE (PCV20) 20-VAL CONJ-DIP CRM/PF 0.5 ML SYR IM ONE (08:45)
[2024-11-28] MEDS: ACETAMINOPHEN 500 MG TAB PO PRN (09:25)
--- NOTE | 2024-11-28 10:44 | Electrocardiogram Report ---
Test Reason : Blood Pressure : */* mmHG Vent. Rate : 57 BPM Atrial Rate : 57 BPM P-R Int : 204 ms QRS Dur : 90 ms QT Int : 430 ms P-R-T Axes : 58 2 59 degrees QTcB Int : 418 ms Sinus bradycardia Low voltage QRS Abnormal ECG When compared with ECG of 29-Sep-2024 06:30, No significant change was found Confirmed by Herrera Mcdonnell ([id number]) on 11/28/2024 10:44:35 AM Referred By: Jacky Petty Confirmed By: Herrera Mcdonnell
--- NOTE | 2024-11-28 12:00 | Hospitalist Progress Note ---
Date of Service November 28, 2024 Assessment & Plan (1) Acute diverticulitis: Plan: 84-year-old female with past medical history significant for type 2 diabetes , hyperlipidemia, exercise-induced asthma, history of nontoxic multinodular goiter, diabetic polyneuropathy, history of hiatal hernia with GERD, constipation, chronic kidney disease stage III, osteoporosis, idiopathic peripheral neuropathy, history of breast cancer, ovarian cancer who was recently diagnosed with diverticulitis and placed on Augmentin comes because of ongoing nausea, vomiting, diarrhea and abdominal pain. Patient says she is having abdominal pain since last Wednesday and was in the ER on Wednesday and CAT scan showed sigmoid diverticulitis and she was discharged home on p.o. Augmentin. Patient states she has a lot of nausea and vomiting and not able to eat anything. Also having lot of diarrhea. Denies bloody stools or black stools. Also having significant abdominal pain. Denies any fevers. Denies chest pain or shortness of breath. No cough currently. No headache. No runny nose or sore throat currently. Micturating okay. Currently hemodynamics are okay. About 5 weeks ago patient had cystocele/rectocele repair and recently had follow-up appointment with urogynecology and seems healing well. Acute diverticulitis Patient was diagnosed with diverticulitis last Wednesday and was placed on Augmentin Not able to tolerate p.o. and failed outpatient treatment Had diverticulitis in 2022 also Empirically placed on IV Zosyn. If not able to tolerate Zosyn with diarrhea we will change to Cipro and Flagyl Pain control Antiemetics as needed Surgical consult in AM-appreciate input and recommendation She has been tolerating intravenous Zosyn and will plan to continue for the total 10 days of antibiotic Started with soft diet and has been tolerating and remains free from any GI symptoms Diarrhea is controlled Does not have any significant GI symptoms and diarrhea seems to be controlled Will continue with intravenous Zosyn for the next 2 days and possible discharge on Wednesday Zosyn was on hold throughout the night due to causing possible bronchial fasciitis The patient was reassured and given ibuprofen for mild or active plantar fasciitis and Zosyn was restarted Clinically much better with improvement of diarrhea and no abdominal symptoms Finish the course of antibiotic in total over 10 days She will be discharged home this afternoonshe was given adequate dietary instructions Plantar fasciitis Was advised to take ibuprofen as needed to control pain Possible anxiety attack Has had chest tightness with palpitation and minimal wheezing last night Condition resolved with use of Maalox and inhalers and including nebulized treatment No signs and or symptoms of asthma exacerbation this morning Diabetes Hold metformin Sliding scale Will monitor Exercise induced asthma On inhalers as needed GERD Will place on IV Protonix DVT prophylaxis Lovenox Disposition Medical floor Full code Admission and Anticipated Discharge Date Admission Date: November 24, 2024 Subjective 11/25/2024 The patient was seen and examined in medical floor She has been very anxious and she seems to be intolerant of Augmentin, Cipro and Flagyl She does not have any more diarrhea and denies any significant abdominal pain today 11/26/2024 The patient was seen and examined in medical floor She has had an attack of anxiety last night and did not have good sleep Has been feeling much better this morning Denies any abdominal pain, nausea or vomiting and diarrhea seems to be controlled 11/27/2024 The patient was seen and examined in medical floor She has been complaining of right shoulder pain on moving around and thinks that it is due to Zosyn Reassured that she likely has mild plantar fasciitis and antibiotic has been restarted 11/28/2024 The patient was seen and examined in medical floor She has been much better with improvement of her diarrhea and does not have any abdominal pain Her pain in the heels is better too She will be discharged home this afternoon Review of Systems Review of Systems: All systems reviewed and are unremarkable except as noted below Physical Exam Physical Exam: Lying in bed with acute anxiety without any other distress Constitutional: well developed, well nourished and average body habitus; not ill appearing Eyes: PERRL, conjunctivae normal, anicteric sclerae ENMT: external ear and nose normal, oropharynx normal Neck: trachea midline, no thyromegaly Respiratory: no respiratory distress Auscultation: lungs clear to au scultation bilaterally Cardiovascular: Rate/Rhythm: regular rate and regular rhythm; not tachycardic Heart Sounds: normal S1 and normal S2; no murmur Extremities: no edema Gastrointestinal (Abdomen): Inspection/Auscultation: normal bowel sounds; abdomen not distended Percussion/Palpation: abdomen soft; abdomen nontender Musculoskeletal: No tenderness involving the plantar fasciitis Neurologic: normal touch/pain/proprioception and moves all extremities; no focal motor deficits Psychiatric: Mood: + anxious mood Results & Data Results & Data Vital Signs (Past 12 Hours) Vital Signs Temp Pulse Resp BP Pulse Ox O2 Del Method 11/28/24 07:46 36.4 C L 53 L 18 120/75 96 Room Air Laboratory Results Short CBC 11/28/24 Range/Units 06:54 WBC 7.36 (4.8-10.8) K/ul Hgb 10.8 L (12.0-16.0) g/dl Hct 32.3 L (37.0-47.0) % Plt Count 301 (130-400) K/uL BMP 11/28/24 06:54 Sodium 140 Potassium 3.7 Chloride 109 H Carbon Dioxide 26 BUN 16 Creatinine 0.92 Glucose 107 H Calcium 9.2 Medications Administered Current Inpatient Medications Acetaminophen (Acetaminophen 500 Mg Tab) 1,000 mg PO Q8H PRN PRN Reason: Pain Stop: 12/28/24 08:53 Last Admin: 11/28/24 09:25 Dose: 1,000 mg Al Hydrox/Mg Hydrox/Simethicone (Aluminum/Magnesium/Simeth (Maalox Max) 30 Ml Udc) 30 ml PO Q6H PRN PRN Reason: Heartburn Stop: 12/27/24 03:15 Last Admin: 11/27/24 23:37 Dose: 30 ml Albuterol (Albuterol 0.083% Nebu Soln 3 Ml Vial) 2.5 mg INH QID PRN; Protocol PRN Reason: sob Stop: 12/24/24 23:09 Last Admin: 11/25/24 23:58 Dose: 2.5 mg Dextrose (Dextrose 50% 50 Ml Syringe) 25 - 50 ml IV UD PRN; Protocol PRN Reason: Hypoglycemia Protocol Stop: 12/24/24 23:09 Enoxaparin Sodium (Enoxaparin Inj 40 Mg/0.4 Ml Syr) 40 mg SQ QAM [facility] Stop: 12/25/24 08:59 Last Admin: 11/28/24 08:46 Dose: 40 mg Fluticasone/Vilanterol (Fluticasone/Vilanterol 200/25mcg 14 Puffs/Inhaler) 1 puffs INH DAILY [facility] Stop: 12/25/24 08:59 Last Admin: 11/28/24 08:46 Dose: 1 puffs Folic Acid (Folic Acid 400 Mcg Tab) 400 mcg PO DAILY [facility] Stop: 12/25/24 08:59 Last Admin: 11/28/24 08:46 Dose: 400 mcg Gabapentin (Gabapentin 100 Mg Cap) 100 mg PO HS [facility] Stop: 12/25/24 20:59 Last Admin: 11/27/24 21:21 Dose: Not Given Glucagon (Glucagon For Inj 1 Mg Vial) 1 mg SQ UD PRN; Protocol PRN Reason: Hypoglycemia Protocol Stop: 12/24/24 23:09 Glucose (Glucose 40% Gel 15 Gm Tube) 15 - 30 gm PO UD PRN; Protocol PRN Reason: Hypoglycemia Protocol Stop: 12/24/24 23:09 Glucose (Glucose 10 Tab/Tube) 4 - 8 tab PO UD PRN; Protocol PRN Reason: Hypoglycemia Protocol Stop: 12/24/24 23:09 Piperacillin Sod/Tazobactam Sod (Zosyn) 4.5 gm in 100 mls @ 25 mls/hr IV Q8H [facility]; Protocol Stop: 12/07/24 10:29 Last Infusion: 11/28/24 11:54 Dose: Infused Ibuprofen (Ibuprofen 600 Mg Tab) 600 mg PO Q8H PRN PRN Reason: Pain Stop: 12/27/24 11:29 Last Admin: 11/28/24 02:49 Dose: 600 mg Insulin Aspart (Insulin Aspart Per Unit Charge) 0 units SC [facility] Stop: 12/25/24 07:29 Last Admin: 11/28/24 11:54 Dose: Not Given Lorazepam (Lorazepam 0.5 Mg Tab) 0.5 mg PO BID PRN PRN Reason: Anxiety Stop: 12/25/24 11:31 Last Admin: 11/25/24 19:42 Dose: 0.5 mg Melatonin (Melatonin 3 Mg Tab) 3 mg PO HS PRN PRN Reason: Sleep Stop: 12/24/24 23:09 Last Admin: 11/27/24 22:55 Dose: 3 mg Miscellaneous (Carbohydrates For Hypoglycemia ) 15 - 30 gm PO UD PRN PRN Reason: Hypoglycemia Protocol Stop: 12/24/24 23:09 Montelukast Sodium (Montelukast Sodium 10 Mg Tablet) 10 mg PO HS [facility] Stop: 12/25/24 20:59 Last Admin: 11/27/24 21:20 Dose: 10 mg Ondansetron HCl (Ondansetron Inj 2 Mg/Ml 2 Ml Vial) 4 mg IV Q6H PRN PRN Reason: Nausea Stop: 12/24/24 23:09
== END 2024-11-28 13:24 | disposition home or self-care (01) | DRG 392 ==
LOC: ED 16:14 → EDINP 21:12 → 3N 23:10